=== PATIENT | female | born 1985 | race Caucasian/White ===

== ENCOUNTER 2017-12-06 19:22 | Emergency (ER) | payer MEDICAID, SELFPAY ==
[2017-12-06 19:23] VITALS: BP 208/119; PULSE 91; RESP 20; TEMP 36.7; O2SAT 97; BMI 53.3
--- NOTE | 2017-12-06 21:02 | US_ITS ---
STUDY: ULTRASOUND TRANSVAGINAL CLINICAL: Female, 32 years old. Bleeding. Recent . TECHNIQUE: Transvaginal COMPARISON: None. FINDINGS: Normal uterine size measuring 11.0 x 6.7 x 5.2 cm in maximal craniocaudal dimension. There are no myometrial masses. Endometrium is thickened and heterogeneous, measuring up to 2 cm. There is no vascularity within the thickened endometrium. This likely represents avascular retained products of conception. Normal uterine cervix. The ovaries are not visualized. There is no free fluid in the pelvis. US/Transvaginal Non- IMPRESSION: Thickened heterogeneous endometrium with no evidence of vascularity. This likely represents avascular retained products of conception. Electronically Signed: Eric Sánchez, at 22:17 EST Tel , Service support ,
[2017-12-06 21:26] VITALS: BP 140/92; RESP 16
[2017-12-06 21:38] LABS: Absolute Lymphocyte Count 0.37 X10^3/ul (0.83-4.51); Absolute Neutrophil Count 2.8 X10^3/uL (2.0-7.7); Basophil# 0.01 X10^3/uL; Basophil% 0.3 % (0-1); Eosinophil# 0.04 X10^3/uL; Eosinophils% 1.1 % (0-5); Hematocrit 33.9 % (37-47); Hemoglobin 11.1 g/dl (12.0-15.0); Lymphocyte # 0.37 X10^3/ul (4.0); Lymphocyte % 10.6 % (19-41); Mean Corp Hgb Conc 32.7 g/gl (32-36); Mean Corpuscular Hgb 29.4 pg (27.0-32.0); Mean Corpuscular Volume 89.9 fL (81-99); Mean Platelet Vol. 11.6 fl (6.2-12.0); Monocyte# 0.26 X10^3/uL; Monocyte% 7.5 % (0-10); Neutrophil # 2.76 X10^3/uL (2.7-7.7); Neutrophil % 79.4 % (47-70); Platelet Count 152 K/mm3 (150-450); RBC Distribution Width CV 12.6 % (11.6-14.6); RBC Distribution Width SD 40.3 fl (35.1-43.9); Red Blood Count 3.77 M/mm3 (4.2-5.4); White Blood Count 3.5 K/mm3 (4.4-11.0)
[2017-12-06 21:39] LABS: Differential Indicated SCAN CRITERIA MET; POSITIVE COUNT NO; POSITIVE DIFFERENTIAL YES; POSITIVE MORPHOLOGY NO
[2017-12-06 21:41] LABS: International Normalized Ratio 1.1; Partial Thromboplast Time 25.4 Seconds (24.1-36.2); Prothrombin Time (Protime)PT. 13.3 SECONDS (11.7-14.9)
[2017-12-06 21:49] LABS: Anion Gap 7 (5-15); BUN 14 mg/dL (7-18); BUN/Creat Ratio 20.4 RATIO (10-20); Calcium,Total 8.7 mg/dL (8.5-10.1); Chloride 106 mmol/L (98-107); Creatinine, Serum 0.68 mg/dL (0.55-1.02); EST Glomerular Filtration Rate 104 mL/min (>60); Est Glom Filt Rate - Afr Amer 126 mL/min (>60); Glucose 88 mg/dL (74-106); Potassium 3.6 mmol/L (3.5-5.1); Sodium Level 140 mmol/L (136-145)
--- NOTE | 2017-12-06 22:51 | ED.DCSUM_ITS ---
- ER Visit Summary Date of Service: 12/06/17 Chief Complaint: Vaginal bleeding History of Present Illness: The patient is a 32 F with a history of cardiomyopathy after prior . Patient underwent an elective surgical on November 27 when she was 10-1/2 weeks . Patient states she had very minimal bleeding for the first several days. 2 days ago she started having sudden gushes of blood and passing clots. She is scheduled to see her LIBERAL ARTS TEACHER tomorrow. Physical Examination: Blood pressure in triage is 208/119, temperature 98.1, heart rate 91, respiratory 20, pulse ox 97% on room air. Head and neck examination is unremarkable. Heart is regular rate and rhythm. Lung sounds are clear with good air movement throughout. Abdomen is soft, obese, nontender. Test Results: CBC reveals a hemoglobin 11.1 which is stable when compared to labs from last year. Chemistry studies and coags are normal. Transvaginal ultrasound reveals a thickened heterogeneous endometrium up to 2 cm in thickness with no evidence of vascularity. This likely represents avascular retained products of conception. Emergency Department Course and Treatment: Patient reports that blood pressure is usually high when checked on machines, but when manually obtained is normal. Manual blood pressure here is 140/92. Patient declined anything for pain. I spoke with Tania Betts, on-call for [facility] CAMPAIGN MANAGEMENT SENIOR MANAGER. She advises that as long as the patient is stable she can be discharged to home and is to follow-up tomorrow as scheduled. At that time they can discuss possible use of Cytotec or D&C. Treatment Plan: [] Disposition: Discharge Impression: Retained products following elective surgical This note was generated with [employer] dictation software. It may contain incorrect words, spelling, and punctuation that were not noted in review of the chart prior to signing ED Disposition - Plan for ED Patient: Disposition: Home or Assisted Living Chief Complaint: Vag Bleeding Instructions: ED Bleeding Menstrual Heavy Referrals: Savanna Alcantara MD [STAFF PHYSICIAN] - Keep Caterina appointment
[2017-12-06 23:23] VITALS: RESP 18
[2017-12-08 09:10] LABS: Pathologist Review Reviewed
== END 2017-12-06 23:25 | disposition home or self-care (01) ==
PROVIDERS: Emergency Provider Emergency Medicine; Family Provider Family Medicine; PCP Family Medicine
DX: O03.1 Delayed or excessive hemorrhage following incomplete spontaneous abortion (principal); I11.0 Hypertensive heart disease with heart failure; I50.9 Heart failure, unspecified; M06.9 Rheumatoid arthritis, unspecified; E66.9 Obesity, unspecified; Z68.43 Body mass index [BMI] 50.0-59.9, adult
CPT/HCPCS: 76830; 80048; 85025; 85610; 85730; 99283; A4216

== ENCOUNTER 2018-02-17 16:10 | Emergency (ER) | payer MEDICAID, SELFPAY ==
[2018-02-17 16:12] VITALS: BP 173/125; PULSE 137; RESP 20; TEMP 37.6; O2SAT 96; BMI 50.1
--- NOTE | 2018-02-17 16:34 | RAD_ITS ---
CLINICAL HISTORY: Female, 32 years old. [place], NECK STIFFNESS, FEVER. PROCEDURE: LUMBAR PUNCTURE UNDER FLUOROSCOPIC GUIDANCE FLUOROSCOPY TIME (if supplied): (0:57) minutes/seconds, 4 images were obtained. RADIATION DOSAGE (If Supplied By Facility): CTDIvol = ( ) mGy, DLP = ( ) mGycm CONSENT: The risks, benefits and alternatives to the procedure were explained to the patient, and the patient agreed to the procedure and signed the consent. SEDATION: STERILE BARRIER TECHNIQUE: The following sterile barrier precautions were used during the procedure: hand hygiene; use of 2% chlorhexidine aseptic; use of a cap, mask, sterile gown, sterile gloves, sterile full body drape, and a large sterile sheet. PROCEDURE/TECHNIQUE: The risks, benefits, and alternatives to the procedure were explained to patient, and the patient agreed to the procedure and signed a consent form for the procedure. A timeout was performed to confirm the patient's identity, the type of procedure, to be performed and the site of entry. TECHNIQUE: Under fluoroscopic guidance using sterile technique and after infiltration of the skin and subcutis soft tissues with 10 mL lidocaine 1% a 22-gauge needle is introduced in the lumbar thecal sac. The CSF opening pressures 30 cm H2O. Traumatic lumbar puncture, 14 mL of blood-tinged CSF which had cleared progressively were removed and sent to lab for the for evaluation RAD/Fluoro Guided Lumbar Puncture IMPRESSION: Successful lumbar puncture. CSF opening pressures 30 CM H2O. 14 mL of blood-tinged CSF were removed. Electronically Signed: Wolf Lopez MD at 9:32 EDT Tel , Service support ,
[2018-02-17] MEDS: 0.9% Normal Saline 1,000 ML 1000 ML IV ×2 (16:48→17:40)
[2018-02-17 16:59] LABS: Absolute Lymphocyte Count 0.39 X10^3/ul (0.83-4.51); Absolute Neutrophil Count 7.8 X10^3/uL (2.0-7.7); Basophil# 0.02 X10^3/uL; Basophil% 0.2 % (0-1); Differential Indicated SCAN CRITERIA MET; Eosinophil# 0.03 X10^3/uL; Eosinophils% 0.3 % (0-5); Hematocrit 37.1 % (37-47); Hemoglobin 12.5 g/dl (12.0-15.0); Lymphocyte # 0.39 X10^3/ul (4.0); Lymphocyte % 4.5 % (19-41); Mean Corp Hgb Conc 33.7 g/gl (32-36); Mean Corpuscular Hgb 29.3 pg (27.0-32.0); Mean Corpuscular Volume 87.1 fL (81-99); Mean Platelet Vol. 13.4 fl (6.2-12.0); Monocyte# 0.48 X10^3/uL; Monocyte% 5.5 % (0-10); Neutrophil # 7.83 X10^3/uL (2.7-7.7); Neutrophil % 89.4 % (47-70); POSITIVE COUNT NO; POSITIVE DIFFERENTIAL YES; POSITIVE MORPHOLOGY NO; Platelet Count 59 K/mm3 (150-450); RBC Distribution Width CV 12.8 % (11.6-14.6); RBC Distribution Width SD 39.4 fl (35.1-43.9); Red Blood Count 4.26 M/mm3 (4.2-5.4); White Blood Count 8.8 K/mm3 (4.4-11.0)
[2018-02-17 17:07] LABS: Anion Gap 7 (5-15); BUN 7 mg/dL (7-18); Calcium,Total 8.4 mg/dL (8.5-10.1); Chloride 101 mmol/L (98-107); Creatinine, Serum 0.63 mg/dL (0.55-1.02); EST Glomerular Filtration Rate 114 mL/min (>60); Est Glom Filt Rate - Afr Amer 137 mL/min (>60); Estimated Creatinine Clearance 113.22 ml/min; Glucose 122 mg/dL (74-106); Potassium 4.6 mmol/L (3.5-5.1); Sodium Level 132 mmol/L (136-145)
[2018-02-17 17:10] LABS: Pregnancy, Serum, hCG Quali. NEGATIVE Negative (0-9 Nonpreg)
[2018-02-17 17:22] LABS: Differential Comment SCANNED
[2018-02-17] MEDS: Acetaminophen 500 MG Tablet 1000 MG PO (17:40)
[2018-02-17 17:56] LABS: Body Fluid Polynuclear WBC # 0.001 10^3/uL; Total Cell Count CSF 0.001 10^3/uL (0.000-0.000); White Count, CSF 0.001 10^3/uL (0.000-0.000)
[2018-02-17 17:58] LABS: Glucose Spinal Fluid 55 mg/dL (40-75)
[2018-02-17 18:11] LABS: Appearance CSF (character) CLEAR (Clear); Auto B Fluid Analyzer BKGD Ct COUNTS W/IN LIMITS (W/IN LIMITS); Body Fluid QC Type(s) BF4Q; CSF Color COLORLESS (Colorless); RBC Count, Spinal Fluid 219 /mm-3 (None seen); Tested Tube # 4
[2018-02-17 18:26] LABS: Bacteria 0 SEEN /hpf (None Seen); Mucous, Urine 0 SEEN /hpf (<or=2+); White Blood Cells 0 SEEN /hpf (0-5)
--- NOTE | 2018-02-17 18:33 | RAD_ITS ---
STUDY: X-RAY CHEST REASON FOR EXAM: Female, 32 years old. Fever, headache TECHNIQUE: Single frontal view COMPARISON: May 07, 2013 FINDINGS: The lungs are clear and expanded. There is no demonstrated pleural abnormality. Prominent cardiac shadow. Normal mediastinum and benedict. Normal visualized pulmonary arteries. Normal visualized aortic arch and descending thoracic aorta. Normal visualized thoracic spine. Normal visualized ribs, clavicles, and shoulders. There is no demonstrated abnormality of the visualized soft tissue structures of the upper abdomen. RAD/Chest 1 View (Portable) IMPRESSION: Prominent cardiac shadow. Electronically Signed: Jose G Damon DO at 18:58 EDT Tel [phone], Service support ,
[2018-02-17 18:42] LABS: Color, Urine Yellow (Yellow); Glucose, Dipstick Normal (Normal); Ketone-Dipstick Negative (Negative); Leukocyte Esterase-Dipstick Negative /ul (Negative); Nitrite-Dipstick Negative (Negative); Occult Blood-Urine 250 /ul (Negative); Protein-Dipstick 100 mg/dl (Negative); Urine Bilirubin Dipstick Negative (Negative); Urine Clarity Sl. Cloudy (Clear); Urine Urobilinogen 1 mg/dl (Normal)
[2018-02-17 18:59] LABS: AST(SGOT) 34 U/L (15-37); Alanine Aminotransfer ALT/SGPT 16 U/L (13-56); Albumin, Serum 3.1 g/dL (3.2-5.0); Alkaline Phosphatase 58 U/L (45-117); Globulin 4.8 g/dL (2.2-4.2); Protein, Total 7.9 g/dL (6.4-8.2)
[2018-02-17 19:01] LABS: Body Fluid Mononuclear WBC # 0.001 10^3/uL; Body Fluid Mononuclear WBC % 6.3 %; Body Fluid Polynuclear WBC # 0.015 10^3/uL; Body Fluid Polynuclear WBC % 93.7 %; Total Cell Count CSF 0.016 10^3/uL (0.000-0.000); White Count, CSF 0.016 10^3/uL (0.000-0.000)
[2018-02-17] MEDS: Ibuprofen 600 MG Tablet PO (19:02)
[2018-02-17 19:03] VITALS: PULSE 124; RESP 20; O2SAT 97
[2018-02-17] MEDS: 0.9% Normal Saline 1,000 ML 999 ML IV (19:03)
[2018-02-17 19:05] VITALS: TEMP 39.4
[2018-02-17 19:05] LABS: Auto B Fluid Analyzer BKGD Ct COUNTS W/IN LIMITS (W/IN LIMITS); Tested Tube # 1
[2018-02-17 19:06] LABS: Appearance CSF (character) CLOUDY (Clear); Body Fluid QC Type(s) BF4Q; CSF Color RED (Colorless)
[2018-02-17 19:10] LABS: Amorphous Sediment 1+ PHOS; Red Blood Cells-Urine 10-25 SEEN /hpf (0-5); Squamous Epithelial Cells - UA 0-5 SEEN /hpf (5-10)
--- NOTE | 2018-02-17 19:14 | CT_ITS ---
STUDY: CT BRAIN WITHOUT CONTRAST REASON FOR EXAM: Female, 32 years old. Headache, neck pain RADIATION DOSAGE (If Supplied By Facility): CTDIvol = ( 44.99 ) mGy, DLP = ( 779.24 ) mGycm TECHNIQUE: Transaxial CT imaging of the brain was performed without administration of intravenous contrast material. Individualized dose optimization techniques were used for this CT. COMPARISON: None. FINDINGS: Normal soft tissue structures. Normal calvarium. Normal size ventricles and extra-axial spaces for the patient's age. Normal white matter tracts of the cerebral hemispheres. Normal basal ganglia and thalami. Normal brainstem. Normal cerebellum. There is no intracranial hemorrhage. There are no findings of an acute ischemic infarction. Normal visualized paranasal sinuses. CT/Brain/Head without Contrast IMPRESSION: Normal unenhanced CT scan of the brain. Electronically Signed: Jose G Damon DO at 19:51 EDT Tel [phone], Service support ,
[2018-02-17 19:17] LABS: Protein Spinal Fluid 28.1 mg/dL (15.0-45.0)
[2018-02-17 19:55] VITALS: BP 143/105; TEMP 38
[2018-02-17 20:14] LABS: Lactic Acid 0.7 mmol/L (0.4-2.0)
[2018-02-17 20:21] VITALS: TEMP 37.4
--- NOTE | 2018-02-17 20:59 | ED.DEP ---
ED Disposition - Plan for ED Patient: Chief Complaint: Headache Instructions: ED Viral Syndrome Referrals: Julio Argueta MD [Primary Care Provider] -
[2018-02-17 21:17] VITALS: BP 138/90; PULSE 110; RESP 14; O2SAT 98
--- NOTE | 2018-02-17 22:49 | ED.DCSUM_ITS ---
- ER Visit Summary Date of Service: 02/17/18 Chief Complaint: Fever History of Present Illness: The patient is a 32 F presenting with fever, headache, neck pain. She states she had a gradual onset headache which started on Wednesday. It worsened over the past 2 days. She has had temperatures up to 103.4 at home. She took Tylenol at noon today. She went to urgent care and they sent her to the ED for further evaluation. She denies sore throat or rhinorrhea. Denies chest pain or shortness of breath. Denies abdominal pain, nausea, vomiting. She does have mild diarrhea. Denies urinary complaints. Denies other complaints. Physical Examination: HR 137, Temperature 99.7. Alert no acute distress. HEENT exam is unremarkable. Pharynx is normal, uvula midline Neck is supple. Paraspinal tenderness with range of motion Lungs are clear and equal bilaterally. Heart is regular and tachycardic Abdomen is soft nontender nondistended. No rebound or guarding Extremities are unremarkable. Skin is warm and dry. No rash No focal neurologic deficit. Remainder of exam is unremarkable. Emergency Department Course and Treatment: Patient is given IV fluids, Motrin. CBC normal except for platelets of 59. Chemistries normal except for sodium 132 , glucose 122. Urinalysis positive for blood. She states that she does have intermittent spotting with irregular periods. HCG negative. Influenza negative. LP was performed under fluoroscopy. CSF shows 1 white blood cell, glucose and protein are normal. Gram stain is negative. She does have red blood cells in her CSF which decreases from tube 1 to tube 4. This is likely due to traumatic tap. Repeat temperature 103. CT head shows no acute process. Chest x-ray shows no acute process. She is given additional IV fluids. Lactic acid is normal. On repeat evaluation her heart rate is now 106. She has a temperature 99.3. She is feeling much improved. She is able tolerate p.o. in the emergency department. Her platelets are 59 which is lower than her previous. Discussed with Dr. Madrid. Low platelets are likely due to viral illness. She will follow-up with her primary care physician to have this rechecked when she is feeling improved. She is advised return to the ED for any worsening complaints. Disposition: Discharge home Impression: Febrile illness, Viral syndrome This note was generated with [employer] software. It may contain incorrect words, spelling, and punctuation that were not noted in review of the chart prior to signing ED Disposition - Plan for ED Patient: Disposition: Home or Assisted Living Chief Complaint: Headache Instructions: ED Viral Syndrome Referrals: Julio Argueta MD [Primary Care Provider] -
[2018-02-18 14:33] LABS: Pathologist Review Reviewed
[2018-02-18 14:34] LABS: Pathologist Review Reviewed
== END 2018-02-17 21:20 | disposition home or self-care (01) ==
PROVIDERS: Emergency Provider Emergency Medicine; Family Provider Family Medicine; PCP Family Medicine
DX: B34.9 Viral infection, unspecified (principal)
CPT/HCPCS: 62270; 70450; 71045; 77003; 80048; 80076; 81001; 82945; 83605; 84157; 84703; 85025; 87070; 87205; 87449; 87804; 89050; 89051; 96360; 96361; 99283; J7030; A4216

== ENCOUNTER 2018-02-21 10:15 | Emergency (ER) | payer OTHER, SELFPAY ==
[2018-02-21 10:16] VITALS: BP 105/33; PULSE 109; RESP 18; TEMP 36.9; O2SAT 96; BMI 50.6
--- NOTE | 2018-02-21 11:02 | ED.VISSUMM ---
- ER Visit Summary Date of Service: 02/21/18 Chief Complaint: Headache History of Present Illness: The patient is a 32 F who presents with a headache. 4 days ago she was seen here for fever, headache and neck pain. She had a LP done which showed no evidence of infection. She was diagnosed with a viral syndrome and discharged home. She continues with a headache. It is a pressure in the front part of her head. She has been tiring caffeine as well as other nonsteroidals at home without any relief. She also admits to diarrhea. She has no history of migraines. She has still had a slight fever at home but it is improved since she came to the ER. She also has blurry vision. Physical Examination: Vital signs reviewed. HEENT exam unremarkable. Heart is regular rate and rhythm without murmurs. Lungs are clear to auscultation. Abdomen is soft and nontender. Extremities reveal no edema. Skin exam normal. Neurologic exam normal. Test Results: None performed Emergency Department Course and Treatment: Patient was given Compazine, Benadryl and normal saline. I feel that she is out of the window for a blood patch. She states she had improvement with this but not any resolution. I did add Norflex as she was having some left paraspinal cervical tenderness and tightness. Patient will be discharged with Flexeril. I will give her a nonsteroidal for pain at home. She will rest and will follow up with her PCP Treatment Plan: [] Disposition: Discharge Impression: Headache This note was generated with [employer] dictation software. It may contain incorrect words, spelling, and punctuation that were not noted in review of the chart prior to signing ED Disposition - Plan for ED Patient: Chief Complaint: Headache Referrals: Julio Argueta MD [Primary Care Provider] -
[2018-02-21] MEDS: 0.9% Normal Saline 1,000 ML 999 ML IV (11:29)
[2018-02-21] MEDS: DiphenhydrAMINE 50 MG/ML Syringe 25 MG IV (11:29)
[2018-02-21] MEDS: proCHLORPERazine 10 MG/2 ML Vial IV (11:29)
[2018-02-21] MEDS: Orphenadrine 60 MG/2 ML Ampul IM (12:43)
--- NOTE | 2018-02-21 13:13 | ED.DEP ---
ED Disposition - Plan for ED Patient: Disposition: Home or Assisted Living Chief Complaint: Headache Instructions: ED Cephalgia Unspecified Prescriptions: Naproxen [Naprosyn] 500 mg PO BID PRN #20 tab Cyclobenzaprine [Flexeril] 10 mg PO TID PRN #20 tab PRN Reason: Muscle Spasm Referrals: Julio Argueta MD [Primary Care Provider] -
[2018-02-21 13:23] VITALS: BP 108/69; PULSE 72; RESP 15; O2SAT 98
== END 2018-02-21 13:25 | disposition home or self-care (01) ==
PROVIDERS: Emergency Provider Emergency Medicine; Family Provider Family Medicine; PCP Family Medicine
DX: R51 Headache (principal)
CPT/HCPCS: 96361; 96372; 96374; 96375; 99283; J7030; A4216

== ENCOUNTER 2018-02-28 07:08 | Emergency (ER) | payer OTHER, SELFPAY ==
[2018-02-28 07:09] VITALS: BP 156/114; PULSE 125; RESP 18; TEMP 36.8; O2SAT 98; BMI 49.7
--- NOTE | 2018-02-28 07:22 | CT_ITS ---
STUDY: CT SOFT TISSUE NECK WITHOUT CONTRAST REASON FOR EXAM: Female, 32 years old. Two-week history of palpable abnormality in the lower left cervical/ shoulder region with the fever and sore throat. RADIATION DOSAGE (If Supplied By Facility): CTDIvol = ( 21.92 ) mGy, DLP = ( 1554.3 ) mGycm TECHNIQUE: The patient was scanned in a multi-detector CT scanner. High resolution transaxial imaging was performed without the administration of intravenous contrast material. Sagittal and coronal images were reconstructed. Individualized dose optimization techniques were used for this CT. COMPARISON: None. FINDINGS: Normal bilateral parotid glands. Normal bilateral nuclear waste management engineer spaces. Normal bilateral parapharyngeal spaces. Normal bilateral carotid spaces. Normal bilateral sublingual and submandibular glands and spaces. Normal visualized nasopharynx. Normal retropharyngeal space. Normal perivertebral space. Normal visualized bilateral faucial tonsils. The visualized tongue, tongue base and oropharynx are normal. There is a 6.2 cm x 9.4 signed by 7.2 cm soft tissue mass in the left supraclavicular region extending into the left lower cervical region. There is diffuse increased markings in the subcutaneous fat along the left anterior chest wall suggestive of edema. Is also evidence of multiple small lymph nodes in the supraclavicular region and lower cervical region bilaterally worse on the left side. A neoplastic process should be ruled out. With a history of fever, possible slight marginal be ruled out as well. Normal epiglottis, bilateral vallecula and hypopharynx. The pre-epiglottic and paraglottic adipose spaces are normal. Normal visualized bilateral piriform sinuses, aryepiglottic folds, vocal cords, and arytenoid-cricoid articulations. Normal subglottic trachea. Normal bilateral lobes of the thyroid gland. Normal visualized pulmonary apices. Normal visualized paranasal sinuses. Normal visualized cervical spine. CT/Soft Tissue Neck without Contr IMPRESSION: Soft tissue mass in the left supraclavicular and left lower cervical region as described with evidence of subcutaneous inflammatory change or edema and adenopathy. Electronically Signed: Kyle Almanzar MD at 9:10 EDT Tel [phone], Service support ,
--- NOTE | 2018-02-28 07:22 | CT_ITS ---
STUDY: CT CHEST WITHOUT CONTRAST REASON FOR EXAM: Female, 32 years old. Left-sided palpable mass. Pain. RADIATION DOSAGE (If Supplied By Facility): CTDIvol = ( 21.92 ) mGy, DLP = ( 1554.3 ) mGycm TECHNIQUE: Transaxial imaging was performed without the administration of intravenous contrast material. Multiplanar coronal and sagittal images were reformatted. Individualized dose optimization techniques were used for this CT. COMPARISON: None. FINDINGS: There is an 8.9 cm x 6.9 cm soft tissue mass in the left supraclavicular and left cervical region. Increased markings are seen in the surrounding subcutaneous fat. A neoplastic process should be ruled out. Multiple small lymph nodes are also seen in the paraventricular region bilaterally as well as in the lower cervical region. The lungs are normal. There is no demonstrated pleural abnormality. Normal heart and pericardium. Normal mediastinum. Normal hilar regions. Normal unenhanced pulmonary arteries. Normal aorta arch and descending thoracic aorta. Normal osseous structures. There is no demonstrated abnormality of the visualized upper abdomen. CT/Chest without Contrast IMPRESSION: Large soft tissue mass in the left supraclavicular and left cervical region with multiple small lymph nodes as described. Increased markings in the surrounding subcutaneous fat. A neoplastic process should be ruled out. Electronically Signed: Kyle Almanzar MD at 9:21 EDT Tel [phone], Service support ,
--- NOTE | 2018-02-28 07:25 | ED.VISSUMM ---
- ER Visit Summary Date of Service: 02/28/18 Chief Complaint: Neck mass History of Present Illness: The patient is a 32 F who was seen about 2 weeks ago for fever and headache. She had a lumbar puncture and was discharged. She developed a subsequent spinal headache, according to the patient. She was here Wednesday. She has a left-sided neck mass that has continued to bother her. She tried muscle relaxers and anti-inflammatories, and it is not improving. She is concerned it might be associated with her fever and she is developing a sore throat. She never had anything like this in the past. She has a history of -induced cardiomyopathy, CHF. She also has acid reflux and hypothyroidism. No history of malignancy. She is allergic to IV dye and is refusing contrast injection. Physical Examination: Hypertensive and tachycardic. No acute distress. Sitting upright, breathing and moving comfortably. HEENT is normal to inspection. Oropharynx slightly red but otherwise normal. No masses. Uvula midline. No exudates. Pain with range of motion of her neck to the left. Range of motion is full and no meningeal signs are noted. She does have some firm supraclavicular fullness on the left side. No crepitus. Skin appears normal. Heart and lungs unremarkable. Upper extremity exam unremarkable. Test Results: We will check lab work, hCG, strep test, and CT neck and chest. Emergency Department Course and Treatment: Patient has a very pronounced left sided supraclavicular fullness. I am concerned for an underlying mass, lymphadenopathy, infection, etc. Laboratory studies and imaging were performed. Hemoglobin 10.7 and platelets 69. Patient has a history of anemia, but never had thrombocytopenia prior to this month that I can appreciate in her records. Her metabolic panel was normal. HCG negative. Strep test was positive. CT neck and chest was performed without contrast because the patient has an allergy and would not allow contrast to be given. This showed a supraclavicular mass with edema and associated lymphadenopathy. I spoke with the radiologist. There is a concern for malignancy. I discussed the patient with Dr. Madrid. He said that the patient can follow-up with him. He was also concern for malignancy. He recommended [facility] for appropriate and expedited initial workup. The patient initially requested [facility], but they were at capacity, and she subsequently agreed to transfer to [facility]. I spoke with Dr. Prosper Haney who accepted the patient. Patient was treated with azithromycin for her strep positive test. [facility] called back and did have a bed available. Patient would prefer [facility] and was transferred there instead. Treatment Plan: As above Disposition: Transfer to [facility] Impression: 1. Left supraclavicular mass 2. Thrombocytopenia 3. Strep positive This note was generated with [employer] dictation software. It may contain incorrect words, spelling, and punctuation that were not noted in review of the chart prior to signing ED Disposition - Plan for ED Patient: Chief Complaint: General Illness Referrals: Julio Argueta MD [Primary Care Provider] -
--- NOTE | 2018-02-28 07:28 | ED.DCSUM_ITS ---
- ER Visit Summary Date of Service: 02/28/18 Chief Complaint: Neck mass History of Present Illness: The patient is a 32 F who was seen about 2 weeks ago for fever and headache. She had a lumbar puncture and was discharged. She developed a subsequent spinal headache, according to the patient. She was here Wednesday. She has a left-sided neck mass that has continued to bother her. She tried muscle relaxers and anti-inflammatories, and it is not improving. She is concerned it might be associated with her fever and she is developing a sore throat. She never had anything like this in the past. She has a history of -induced cardiomyopathy, CHF. She also has acid reflux and hypothyroidism. No history of malignancy. She is allergic to IV dye and is refusing contrast injection. Physical Examination: Hypertensive and tachycardic. No acute distress. Sitting upright, breathing and moving comfortably. HEENT is normal to inspection. Oropharynx slightly red but otherwise normal. No masses. Uvula midline. No exudates. Pain with range of motion of her neck to the left. Range of motion is full and no meningeal signs are noted. She does have some firm supraclavicular fullness on the left side. No crepitus. Skin appears normal. Heart and lungs unremarkable. Upper extremity exam unremarkable. Test Results: We will check lab work, hCG, strep test, and CT neck and chest. Emergency Department Course and Treatment: Patient has a very pronounced left sided supraclavicular fullness. I am concerned for an underlying mass, lymphadenopathy, infection, etc. Laboratory studies and imaging were performed. Hemoglobin 10.7 and platelets 69. Patient has a history of anemia, but never had thrombocytopenia prior to this month that I can appreciate in her records. Her metabolic panel was normal. HCG negative. Strep test was positive. CT neck and chest was performed without contrast because the patient has an allergy and would not allow contrast to be given. This showed a supraclavicular mass with edema and associated lymphadenopathy. I spoke with the radiologist. There is a concern for malignancy. I discussed the patient with Dr. Madrid. He said that the patient can follow-up with him. He was also concern for malignancy. He recommended [facility] for appropriate and expedited initial workup. The patient initially requested [facility], but they were at capacity, and she subsequently agreed to transfer to [facility]. I spoke with Dr. Prosper Haney who accepted the patient. Patient was treated with azithromycin for her strep positive test. [facility] called back and did have a bed available. Patient would prefer [facility] and was transferred there instead. Treatment Plan: As above Disposition: Transfer to [facility] Impression: 1. Left supraclavicular mass 2. Thrombocytopenia 3. Strep positive This note was generated with [employer] dictation software. It may contain incorrect words, spelling, and punctuation that were not noted in review of the chart prior to signing ED Disposition - Plan for ED Patient: Chief Complaint: General Illness Referrals: Julio Argueta MD [Primary Care Provider] -
[2018-02-28] MEDS: 0.9% Normal Saline 1,000 ML 999 ML IV (07:43)
[2018-02-28 07:55] LABS: Absolute Lymphocyte Count 0.35 X10^3/ul (0.83-4.51); Absolute Neutrophil Count 7.7 X10^3/uL (2.0-7.7); Basophil# 0.01 X10^3/uL; Basophil% 0.1 % (0-1); Differential Indicated SCAN CRITERIA MET; Eosinophil# 0.06 X10^3/uL; Eosinophils% 0.7 % (0-5); Hematocrit 32.7 % (37-47); Hemoglobin 10.7 g/dl (12.0-15.0); Lymphocyte # 0.35 X10^3/ul (4.0); Lymphocyte % 4.1 % (19-41); Mean Corp Hgb Conc 32.7 g/gl (32-36); Mean Corpuscular Hgb 28.8 pg (27.0-32.0); Mean Corpuscular Volume 87.9 fL (81-99); Mean Platelet Vol. 12.2 fl (6.2-12.0); Monocyte# 0.36 X10^3/uL; Monocyte% 4.2 % (0-10); Neutrophil # 7.72 X10^3/uL (2.7-7.7); Neutrophil % 90.5 % (47-70); POSITIVE COUNT NO; POSITIVE DIFFERENTIAL YES; POSITIVE MORPHOLOGY NO; Platelet Count 69 K/mm3 (150-450); RBC Distribution Width CV 12.7 % (11.6-14.6); RBC Distribution Width SD 39.8 fl (35.1-43.9); Red Blood Count 3.72 M/mm3 (4.2-5.4); White Blood Count 8.5 K/mm3 (4.4-11.0)
--- NOTE | 2018-02-28 08:03 | ED.RN ---
DR RAZO NOTIFIED PT IS STREP A +
[2018-02-28 08:04] LABS: Anion Gap 8 (5-15); BUN 10 mg/dL (7-18); BUN/Creat Ratio 17.5 RATIO (10-20); Calcium,Total 8.4 mg/dL (8.5-10.1); Chloride 103 mmol/L (98-107); Creatinine, Serum 0.57 mg/dL (0.55-1.02); EST Glomerular Filtration Rate 128 mL/min (>60); Est Glom Filt Rate - Afr Amer 155 mL/min (>60); Estimated Creatinine Clearance 125.14 ml/min; Glucose 125 mg/dL (74-106); Sodium Level 136 mmol/L (136-145)
[2018-02-28 08:09] LABS: Pregnancy, Serum, hCG Quali. NEGATIVE Negative (0-9 Nonpreg)
[2018-02-28 10:23] VITALS: BP 141/99; PULSE 111; RESP 16; O2SAT 97
--- NOTE | 2018-02-28 13:23 | NURSING ---
CALLED [facility]. NO BEDS AVAILABLE YET. EXPECTING DISCHARGES THIS AFTERNOON
[2018-02-28] MEDS: Acetaminophen 325 MG Tablet 650 MG PO (14:39)
--- NOTE | 2018-02-28 15:44 | NUR.TO.PHY ---
14:50CALLED [facility] TO SEE IF THEY HAD ANYONE AVAILABLE TO TAKE PATIENT TO [place]. ETA WAS 45 MIN. 14:54 CALLED [facility] TO SEE IF THEY HAD ANYONE AVAILABLE. THEY SAID THEY HAD SOMEONE IN THE [place] SO ETA WOULD BE 15 MIN. 15:25 [facility] CALLED AND SAID THEY WERE SENDING A [facility]. I ASKED FOR AN ETA AND THEY SAID 20 MIN. 15:50 I JUST CALLED [facility] AGAIN AND THEY SAID THEY ARE HERE. ITS BEEN 10 MINUTES AND THEY JUST CAME IN AT 16:00.
== END 2018-02-28 15:59 | disposition short-term general hospital (02) ==
PROVIDERS: Emergency Provider Emergency Medicine; Family Provider Family Medicine; PCP Family Medicine
DX: R22.1 Localized swelling, mass and lump, neck (principal); D69.6 Thrombocytopenia, unspecified; J02.0 Streptococcal pharyngitis; I50.9 Heart failure, unspecified
CPT/HCPCS: 70490; 71250; 80048; 84703; 85025; 87880; 96361; 96365; 99285; J7030; J7050; A4216

== ENCOUNTER 2018-03-07 15:23 | Emergency (ER) | payer OTHER, SELFPAY ==
[2018-03-07 15:24] VITALS: BP 189/111; PULSE 118; RESP 18; TEMP 37.1; O2SAT 98; BMI 48.6
--- NOTE | 2018-03-07 15:43 | EKG12_ITS ---
Test Reason : HTN Blood Pressure : / mmHG Vent. Rate : 113 BPM Atrial Rate : 113 BPM P-R Int : 134 ms QRS Dur : 084 ms QT Int : 338 ms P-R-T Axes : 036 -20 032 degrees QTc Int : 463 ms Sinus tachycardia Leftward axis Poor R wave progression Confirmed by ERNESTO TRONCOSO, ELIZABETH ([id number]), map editor ELLIE BETTENCOURT ([id number]) on 03/11/2018 10:24:23 AM Referred By: HANNAH Confirmed By:ELIZABETH OROZCO MD
--- NOTE | 2018-03-07 15:52 | RAD_ITS ---
STUDY: X-RAY CHEST REASON FOR EXAM: Female, 32 years old. High blood pressure. TECHNIQUE: Frontal and lateral views of the chest. COMPARISON: 02/17/2018. FINDINGS: The lungs are clear and expanded. There is no demonstrated pleural abnormality. Normal size heart. Normal mediastinum and benedict. Normal visualized pulmonary arteries. Normal visualized aortic arch and descending thoracic aorta. Normal visualized thoracic spine. Normal visualized ribs, clavicles, and shoulders. There is no demonstrated abnormality of the visualized soft tissue structures of the upper abdomen. RAD/Chest PA and Lateral IMPRESSION: Normal x-ray examination of the chest. Electronically Signed: Donn Barcenas MD at 16:22 EDT , Service support ,
[2018-03-07 16:30] VITALS: BP 159/129; PULSE 11; RESP 15; O2SAT 99
[2018-03-07 16:41] LABS: Absolute Lymphocyte Count 0.31 X10^3/ul (0.83-4.51); Absolute Neutrophil Count 2.9 X10^3/uL (2.0-7.7); Basophil# 0.01 X10^3/uL; Basophil% 0.3 % (0-1); Differential Indicated SCAN CRITERIA MET; Eosinophil# 0.02 X10^3/uL; Eosinophils% 0.6 % (0-5); Hematocrit 34.1 % (37-47); Hemoglobin 11.2 g/dl (12.0-15.0); Lymphocyte # 0.31 X10^3/ul (4.0); Mean Corp Hgb Conc 32.8 g/gl (32-36); Mean Corpuscular Hgb 27.9 pg (27.0-32.0); Mean Platelet Vol. 11.6 fl (6.2-12.0); Monocyte# 0.19 X10^3/uL; Monocyte% 5.5 % (0-10); Neutrophil # 2.88 X10^3/uL (2.7-7.7); Neutrophil % 83.2 % (47-70); POSITIVE COUNT NO; POSITIVE DIFFERENTIAL YES; POSITIVE MORPHOLOGY NO; Platelet Count 123 K/mm3 (150-450); RBC Distribution Width CV 12.7 % (11.6-14.6); RBC Distribution Width SD 38.7 fl (35.1-43.9); Red Blood Count 4.01 M/mm3 (4.2-5.4); White Blood Count 3.5 K/mm3 (4.4-11.0)
[2018-03-07 16:47] LABS: Color, Urine Yellow (Yellow); Glucose, Dipstick Normal (Normal); Ketone-Dipstick 5 mg/dl (Negative); Leukocyte Esterase-Dipstick 25 /ul (Negative); Nitrite-Dipstick Negative (Negative); Occult Blood-Urine 150 /ul (Negative); Protein-Dipstick 100 mg/dl (Negative); Urine Clarity Cloudy (Clear); Urine Urobilinogen 1 mg/dl (Normal)
[2018-03-07 16:48] LABS: Urine Bilirubin Dipstick 1 mg/dL (Negative)
[2018-03-07 16:57] LABS: Bacteria 1+ /hpf (None Seen); Mucous, Urine 3+ /hpf (<or=2+); Red Blood Cells-Urine 0-5 SEEN /hpf (0-5); Squamous Epithelial Cells - UA 0-5 SEEN /hpf (5-10); White Blood Cells 0-5 SEEN /hpf (0-5)
[2018-03-07 16:58] LABS: Calcium Oxalate Crystals Ur 2+ /hpf (<or=2+); Hyaline Cast 5-10 SEEN /lpf (0-5)
[2018-03-07 17:08] LABS: AST(SGOT) 25 U/L (15-37); Alanine Aminotransfer ALT/SGPT 25 U/L (13-56); Albumin, Serum 2.9 g/dL (3.2-5.0); Alkaline Phosphatase 74 U/L (45-117); Anion Gap 11 (5-15); BUN 14 mg/dL (7-18); BUN/Creat Ratio 19.5 RATIO (10-20); Bilirubin, Direct 0.09 mg/dL (0.00-0.30); Calcium,Total 8.8 mg/dL (8.5-10.1); Chloride 102 mmol/L (98-107); Creatinine, Serum 0.72 mg/dL (0.55-1.02); EST Glomerular Filtration Rate 98 mL/min (>60); Est Glom Filt Rate - Afr Amer 119 mL/min (>60); Estimated Creatinine Clearance 99.07 ml/min; Globulin 4.8 g/dL (2.2-4.2); Glucose 116 mg/dL (74-106); Lipase 103 U/L (73-393); Potassium 3.7 mmol/L (3.5-5.1); Protein, Total 7.7 g/dL (6.4-8.2); Sodium Level 140 mmol/L (136-145)
[2018-03-07 17:16] LABS: Differential Comment SCANNED
[2018-03-07 17:17] LABS: Amphetamine Urine VISTA NEGATIVE (<1000 ng/mL); Barbiturate Urine VISTA POSITIVE (< 200 ng/mL); Benzodiazepine Urine VISTA NEGATIVE (< 200 ng/mL); Cocaine Urine VISTA NEGATIVE (< 300 ng/mL); Ecstacy Urine VISTA NEGATIVE (< 500 ng/mL); Methadone Urine VISTA NEGATIVE (< 300 ng/mL); PCP Urine VISTA NEGATIVE (< 25 ng/mL); THC Urine VISTA NEGATIVE (< 50 ng/mL); Vista UDS pH Range 5
[2018-03-07 17:32] VITALS: BP 168/111; PULSE 101; RESP 15; O2SAT 99
[2018-03-07 17:56] VITALS: BP 166/115; PULSE 106; RESP 18; O2SAT 96
[2018-03-07 17:57] VITALS: BP 182/115; PULSE 102; RESP 16; O2SAT 96
[2018-03-07 18:38] LABS: Lactic Acid 0.8 mmol/L (0.4-2.0)
--- NOTE | 2018-03-07 18:52 | ED.DCSUM_ITS ---
- ER Visit Summary Date of Service: 03/07/18 Chief Complaint: Elevated blood pressure, sweats History of Present Illness: The patient is a 32 F who presents with elevated blood pressure. She has had multiple recent ER visits and was recently diagnosed with a left neck abscess. At initial evaluation here it was thought to possibly be a mass. The patient was transferred to [place]. She had consultations from otolaryngology and it was ultimately felt to be an abscess. She did have a radiology guided drainage and catheter placed and there was purulent drainage confirming abscess. She was discharged on Keflex and clindamycin. However she then developed a rash afterwards. Physical Examination: Blood pressure 189/111 heart rate initially 118 vitals otherwise normal Patient does have a slight amount of induration in left supraclavicular region but no erythema no drainage no fluctuance Heart is regular rhythm tachycardia Lungs are clear Abdomen soft Alert and oriented Test Results: EKG shows sinus rhythm at a rate of 113. Laboratory studies notable for immature granulocytes of 1.4. Her lately count is 123 which is improving from prior labs. Urinalysis shows 1+ bacteria but no WBCs. Troponin and lactic acid are normal. Urine drug screen positive for barbiturates. Chest x-ray shows no acute process. Emergency Department Course and Treatment: I was able to obtain old records from the patient's recent hospitalization. Her blood pressure was around 180/ 120 while there. This is similar to what she is presenting with currently. She does not have signs of any organ failure from hypertension. We will increase her lisinopril as she was only started on 5 mg. She was told to double this. Was given a referral for a local primary care physician as she states she currently does not have one. Given her reaction to the Keflex and clindamycin we will treat with azithromycin as her cultures did just grow out group A strep which should be sensitive. Patient understands to return for new or worsening symptoms and she was discharged home. Treatment Plan: [] Disposition: Discharge Impression: Uncontrolled hypertension Recent left neck abscess This note was generated with Yoostay dictation software. It may contain incorrect words, spelling, and punctuation that were not noted in review of the chart prior to signing ED Disposition - Plan for ED Patient: Chief Complaint: Hypertension Referrals: Care Physician,No Primary [Primary Care Provider] -
--- NOTE | 2018-03-07 19:01 | ED.DEP ---
ED Disposition - Plan for ED Patient: Chief Complaint: Hypertension Instructions: ED Hypertension Conf Out Of Control Prescriptions: Azithromycin [Zithromax Z-Enrique] 250 mg PO UD #1 box Referrals: Care Physician,No Primary [Primary Care Provider] - Additional Instructions: Take 10 mg lisinopril daily
[2018-03-07 19:15] VITALS: BP 162/103; PULSE 100; RESP 13; RESP 18; O2SAT 97
== END 2018-03-07 19:24 | disposition home or self-care (01) ==
PROVIDERS: Emergency Provider Emergency Medicine
DX: I10 Essential (primary) hypertension (principal); L02.11 Cutaneous abscess of neck; B95.0 Streptococcus, group A, as the cause of diseases classified elsewhere; F41.9 Anxiety disorder, unspecified; Z79.899 Other long term (current) drug therapy
CPT/HCPCS: 36415; 71046; 80048; 80076; 80307; 81001; 83605; 83690; 84484; 85025; 87040; 93005; 99284; J7030; A4216

== ENCOUNTER 2018-04-28 13:40 | Inpatient (IN) | payer OTHER, SELFPAY ==
[2018-04-28 13:42] VITALS: BP 156/117; PULSE 128; RESP 16; TEMP 37.1; O2SAT 98; BMI 48.1
--- NOTE | 2018-04-28 15:50 | CT_ITS ---
STUDY: CT SOFT TISSUE NECK WITHOUT CONTRAST REASON FOR EXAM: Female, 33 years old. Strep throat RADIATION DOSAGE (If Supplied By Facility): CTDIvol = ( 21.25 ) mGy, DLP = ( 599.65 ) mGycm TECHNIQUE: The patient was scanned in a multi-detector CT scanner. High resolution transaxial imaging was performed without the administration of intravenous contrast material. Sagittal and coronal images were reconstructed. Individualized dose optimization techniques were used for this CT. COMPARISON: February 28, 2018 FINDINGS: Normal bilateral parotid glands. Normal bilateral geospatial applications developer spaces. Normal bilateral parapharyngeal spaces. Normal bilateral carotid spaces. Normal bilateral sublingual and submandibular glands and spaces. Normal visualized nasopharynx. Normal retropharyngeal space. Normal perivertebral space. Normal visualized bilateral faucial tonsils. The visualized tongue, tongue base and oropharynx are normal. The visualized cervical lymph nodes (levels I-) are within normal size limits, and maintain normal morphology. There is no demonstrated solid or cystic mass lesion. Normal epiglottis, bilateral vallecula and hypopharynx. The pre-epiglottic and paraglottic adipose spaces are normal. Normal visualized bilateral piriform sinuses, aryepiglottic folds, vocal cords, and arytenoid-cricoid articulations. Normal subglottic trachea. Normal bilateral lobes of the thyroid gland. Normal visualized pulmonary apices. Normal visualized paranasal sinuses. Normal visualized cervical spine. CT/Soft Tissue Neck without Contr IMPRESSION: Normal unenhanced CT examination of the soft tissues of the neck. Previously noted supraclavicular mass on the left appears to have resolved. No evidence of significant tonsillar hypertrophy or peritonsillar abscess although sensitivity is limited without IV contrast. Electronically Signed: Soto Phipps MD at 18:47 EDT , Service support ,
[2018-04-28 17:20] LABS: ALB/GLOB Ratio 0.6 RATIO (0.9-2.4); AST(SGOT) 41 U/L (15-37); Alanine Aminotransfer ALT/SGPT 29 U/L (13-56); Albumin, Serum 2.9 g/dL (3.2-5.0); Alkaline Phosphatase 64 U/L (45-117); Anion Gap 8 (5-15); BUN 13 mg/dL (7-18); Basophil# 0.01 X10^3/uL; Basophil% 0.3 % (0-1); Calcium,Total 8.2 mg/dL (8.5-10.1); Chloride 103 mmol/L (98-107); Creatinine, Serum 0.77 mg/dL (0.55-1.02); EST Glomerular Filtration Rate 91 mL/min (>60); Eosinophil# 0.02 X10^3/uL; Eosinophils% 0.6 % (0-5); Est Glom Filt Rate - Afr Amer 110 mL/min (>60); Estimated Creatinine Clearance 91.76 ml/min; Globulin 4.7 g/dL (2.2-4.2); Glucose 99 mg/dL (74-106); Hemoglobin 11.3 g/dl (12.0-15.0); Lymphocyte % 5.6 % (19-41); Mean Corp Hgb Conc 33.2 g/gl (32-36); Mean Corpuscular Volume 87.2 fL (81-99); Monocyte# 0.26 X10^3/uL; Monocyte% 7.3 % (0-10); Neutrophil # 3.02 X10^3/uL (2.7-7.7); Neutrophil % 85.4 % (47-70); Platelet Count 37 K/mm3 (150-450); Potassium 4.2 mmol/L (3.5-5.1); Protein, Total 7.6 g/dL (6.4-8.2); RBC Distribution Width SD 40.9 fl (35.1-43.9); Sodium Level 137 mmol/L (136-145); White Blood Count 3.5 K/mm3 (4.4-11.0)
[2018-04-28] MEDS: 0.9% Normal Saline 1,000 ML 150 ML IV (17:27)
[2018-04-28 18:01] VITALS: BP 156/98; PULSE 118; RESP 20; O2SAT 100
[2018-04-28 18:21] LABS: Differential Indicated SCAN CRITERIA MET; POSITIVE COUNT YES; POSITIVE DIFFERENTIAL YES; POSITIVE MORPHOLOGY YES
[2018-04-28 18:27] LABS: Anisocytosis RARE; Platelet Estimate MKD DEC (ADEQ)
[2018-04-28 18:28] LABS: Platelet Morphology LARGE
--- NOTE | 2018-04-28 19:02 | ED.VISSUMM ---
- ER Visit Summary Date of Service: 04/28/18 Chief Complaint: [Sore throat] History of Present Illness: The patient is a 33 F [presents to the emergency department complaint of a sore throat for at least 2 weeks now. Patient states that she has been on Keflex for the last 2 weeks. Patient was seen at an urgent care and had a strep screen that initially was negative but the culture part came back positive. Patient also states that about a month ago she was admitted to [facility] with a mass to her left upper chest that was initially thought to be a tumor versus an abscess and it ended up being strep which required some sort of a drain be put in. Patient has developed over last several weeks lesions on her face. Patient has easy bruising. Patient was told that her platelet count was low and she needed to see an oncologist and she is currently attempting to make follow-up appointment with Dr. Jacky Madrid. Patient had a fever yesterday up to 102. Patient also with history of rheumatoid arthritis, lupus, and psoriatic arthritis.] Physical Examination: [HEENT-PERRLA, EOMI. Cranial nerves II through XII grossly intact. TMs clear. Mucous membranes moist. Anterior adenopathy. Patient does have pharyngeal erythema without exudates. No trismus on exam. Patient has excoriated lesions involving both sides of the face some of which appears slightly cellulitic. Cardiovascular-regular rate and rhythm without murmur or ectopy Lungs-clear to auscultation, chest wall stable without crepitus or subcu emphysema Abdomen-normoactive bowel sounds, soft, nontender, no rebound or rigidity, no peritoneal signs. Extremities-intact ?4, normal range of motion, normal pulses, atraumatic] Test Results: [CBC with differential obtained showed a white blood cell count of 3.5, hemoglobin 11.3, hematocrit 34, platelets 37, chemistries unremarkable, liver enzymes unremarkable. Lactate was normal at 1.0] CT scan of the soft tissue neck obtained showed nothing acute. Throat culture ordered and pending patient also tested for MRSA. Emergency Department Course and Treatment: [Patient was started on vancomycin IV] Treatment Plan: [Admit] Disposition: [Admit] Impression: [Pharyngitis-failed outpatient therapy Thrombocytopenia-etiology uncertain] This note was generated with Ihaveu.comation software. It may contain incorrect words, spelling, and punctuation that were not noted in review of the chart prior to signing ED Disposition - Plan for ED Patient: Chief Complaint: Sore Throat Referrals: Care Physician,No Primary [Primary Care Provider] -
--- NOTE | 2018-04-28 19:07 | ED.DCSUM_ITS ---
- ER Visit Summary Date of Service: 04/28/18 Chief Complaint: [Sore throat] History of Present Illness: The patient is a 33 F [presents to the emergency department complaint of a sore throat for at least 2 weeks now. Patient states that she has been on Keflex for the last 2 weeks. Patient was seen at an urgent care and had a strep screen that initially was negative but the culture part came back positive. Patient also states that about a month ago she was admitted to [facility] with a mass to her left upper chest that was initially thought to be a tumor versus an abscess and it ended up being strep which required some sort of a drain be put in. Patient has developed over last several weeks lesions on her face. Patient has easy bruising. Patient was told that her platelet count was low and she needed to see an oncologist and she is currently attempting to make follow-up appointment with Dr. Jacky Madrid. Patient had a fever yesterday up to 102. Patient also with history of rheumatoid arthritis, lupus, and psoriatic arthritis.] Physical Examination: [HEENT-PERRLA, EOMI. Cranial nerves II through XII grossly intact. TMs clear. Mucous membranes moist. Anterior adenopathy. Patient does have pharyngeal erythema without exudates. No trismus on exam. Patient has excoriated lesions involving both sides of the face some of which appears slightly cellulitic. Cardiovascular-regular rate and rhythm without murmur or ectopy Lungs-clear to auscultation, chest wall stable without crepitus or subcu emphysema Abdomen-normoactive bowel sounds, soft, nontender, no rebound or rigidity, no peritoneal signs. Extremities-intact ?4, normal range of motion, normal pulses, atraumatic] Test Results: [CBC with differential obtained showed a white blood cell count of 3.5, hemoglobin 11.3, hematocrit 34, platelets 37, chemistries unremarkable, liver enzymes unremarkable. Lactate was normal at 1.0] CT scan of the soft tissue neck obtained showed nothing acute. Throat culture ordered and pending patient also tested for MRSA. Emergency Department Course and Treatment: [Patient was started on vancomycin IV ] Treatment Plan: [Admit] Disposition: [Admit] Impression: [Pharyngitis-failed outpatient therapy Thrombocytopenia-etiology uncertain] This note was generated with iRuleation software. It may contain incorrect words, spelling, and punctuation that were not noted in review of the chart prior to signing ED Disposition - Plan for ED Patient: Chief Complaint: Sore Throat Referrals: Care Physician,No Primary [Primary Care Provider] -
[2018-04-28] MEDS: Ketorolac 30 MG/ML Syringe IV (19:22)
--- NOTE | 2018-04-28 19:49 | PCM.HP.STD ---
Problem List (1) Thrombocytopenia Status: Acute (2) cardiomyopathy Status: Chronic (3) GERD (gastroesophageal reflux disease) Status: Chronic Qualifiers: Esophagitis presence: esophagitis presence not specified Qualified Code(s): K21.9 - Gastro-esophageal reflux disease without esophagitis (4) Obesity (BMI 30.0-34.9) Status: Chronic (5) Hypothyroidism Status: Chronic Qualifiers: Hypothyroidism type: unspecified Qualified Code(s): E03.9 - Hypothyroidism, unspecified History of Present Illness Date of Admission: 04/28/18 Chief Complaint: Sore throat, rash The patient is a 33 year old F with PMHx of rheumatoid arthritis, psoriatic arthritis, on chronic prednisone 10 mg p.o. daily, cardiomyopathy, thrombocytopenia of unclear etiology, recently seen in the ED in February 2018 with thrombocytopenia and left upper chest mass and transferred to [facility]. Workup was significant for abscess which was drained. Patient says she stayed for 6 days. After her discharge she has been treated for streptococcal pharyngitis 2 times. She comes in with complaints of lesions on her face and easy bruising. Vitals in the ED show a temperature of 97.7, heart rate is 128, blood pressure 156/117, respiratory rate of 16, SPO2 is 98% on room air. Routine blood work showed RBC count of 3.5, Hb 11.3, platelet count of 37(last plt count was 123 in February), her BMP was unremarkable. Cultures and throat cultures were taken in the ED Past Medical History Past Medical History (Chronic Problems): Chronic Problems (Last Updated 11/17/17 @ 13:53 by Luisa Negron) cardiomyopathy (Chronic) GERD (gastroesophageal reflux disease) (Chronic) Obesity (BMI 30.0-34.9) (Chronic) Hypothyroidism (Chronic) Medical History: Medical History (Last Updated 11/17/17 @ 13:53 by Luisa Negron) Acute systolic CHF (congestive heart failure) (Resolved) I50.21 cardiomyopathy (Chronic) O90.3 GERD (gastroesophageal reflux disease) (Chronic) K21.9 Obesity (BMI 30.0-34.9) (Chronic) E66.9 Hypothyroidism (Chronic) E03.9 Hypertension I10 Allergies amoxicillin Allergy (Verified 04/28/18 13:42) Rash doxycycline Allergy (Verified 04/28/18 13:42) Hives Iodinated Contrast- Oral and IV Dye [CONTRASTS] Allergy (Verified 04/28/18 13:42) Shortness of breath morphine Allergy (Verified 04/28/18 13:42) Swelling oxycodone Allergy (Verified 04/28/18 13:42) Hives Penicillins Allergy (Verified 04/28/18 13:42) Rash cephalexin [From Keflex] Adverse Reaction (Verified 04/28/18 13:42) Rash clindamycin Adverse Reaction (Verified 04/28/18 13:42) Rash codeine Adverse Reaction (Verified 04/28/18 13:42) Nausea Home Medications: Ambulatory Orders Medication Instructions Recorded Duloxetine Hcl [Cymbalta] 30 mg PO BID 03/07/18 Cephalexin [Cephalexin] 500 mg PO Q8H 04/28/18 Folic Acid [Folic Acid] 1 mg PO DAILY 04/28/18 Lisinopril [Lisinopril] 20 mg PO DAILY 04/28/18 Methotrexate [Methotrexate] 8 tab PO SA 04/28/18 Norethindrone [Norethindrone] 1 tab PO DAILY 04/28/18 Secukinumab [Cosentyx Pen] 1 injectable IM QMONTH 04/28/18 Surgical History: Surgical History (Last Updated 11/17/17 @ 13:53 by Luisa Negron) History of Z98.891 Surgical History: appendectomy, cholecystectomy, - - s/p 2 CS Psychiatric History: No pertinent psych hx 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 Denies: Difficulty Hearing, Head Aches, Hearing Changes, Nasal Congestion, Post Nasal Drip, Sinus Congestion, Sinus Drainage Cardiovascular: Denies: Chest Pain, Claudication, Chest Pressure, Orthopnea, Palpitations Respiratory: Denies: Cough, Hemoptysis, Pleuritic Pain, Shortness of breath at rest, Shortness of breath upon exertion, Sputum production Gastrointestinal: Denies: Abdominal Pain, Hematemesis, Hematochezia, Nausea, Vomiting Genitourinary: Denies: Dysuria Musculoskeletal: Reports: Joint Pain - generalised. Denies: Joint swelling, Joint Tenderness Skin: Denies: Rash, Wounds Neurological: Denies: Balance problems, Blurred vision, Difficulty swallowing, Focal weakness, Numbness, Tingling Psychiatric: Denies: Anxiety, Depression, Homicidal Ideations, Suicidal Ideations Hematologic/ Lymphatic: Denies: Easy Bruising, Easy Bleeding VTE Information - Inpt Only VTE Present on Admission: No VTE Pharm Prophylaxis ordered?: Yes Patient Problems: Active and Suspected Problems (Last Updated 11/17/17 @ 13:53 by Luisa Negron) Thrombocytopenia (Acute) - Physical Exam General: Alert, Oriented x3, Cooperative, No apparent distress HEENT: Atraumatic, PERRLA, EOMI, Normocephalic, - - Erythema of the pharynx Oral: Moist Mucosa Neck: Supple Lungs: Clear to auscultation, Normal air movement Cardiovascular: Regular rate, Regular Rhythm, Normal S1, Normal S2, No murmurs Abdomen: Bowel Sounds Present, Soft, Non Tender, Non-Distended, No Hepato-splenomegaly Extremities: No edema Skin: No rashes Musculoskeletal: No Tenderness to Palpation of Joints or Extremities Lymphatic: No Cervical, Supraclavicular, or Inguinal Adenopathy Neurological: Cranial nerves II-XII grossly intact, Neuro grossly intact Psych/Mental Status: Normal Affect, Appropriate Vital Signs Temp Pulse Resp BP Pulse Ox 98.7 F 118 H 20 H 156/98 H 100 04/28/18 13:42 04/28/18 18:01 04/28/18 18:01 04/28/18 18:01 04/28/18 18:01 Oxygen Delivery Method Room Air Weight: 131.1 kg Body Mass Index (BMI) 48.1 Laboratory Tests Past 24 Hrs 04/28/18 04/28/18 04/28/18 16:50 16:50 16:50 WBC 3.5 L RBC 3.90 L Hgb 11.3 L Hct 34.0 L MCV 87.2 MCH 29.0 MCHC 33.2 RDW 13.0 RDW Differential 40.9 Plt Count 37 L* MPV TNP Immature Gran % (Auto) 0.800 Neut % (Auto) 85.4 H Lymph % (Auto) 5.6 L [place] % (Auto) 7.3 Eos % (Auto) 0.6 Baso % (Auto) 0.3 Absolute Neuts (auto) 3.0 Absolute Lymphs (auto) 0.20 L Total Counted Not Reportable Differential Comment SEE COMMENT Platelet Estimate MKD DEC Plt Morphology Comment LARGE Anisocytosis RARE Sodium 137 Potassium 4.2 Chloride 103 Carbon Dioxide 26.0 Anion Gap 8 BUN 13 Creatinine 0.77 Estim Creat Clear Calc 91.76 Est GFR (MDRD) Af Amer 110 Est GFR (MDRD) Non-Af 91 BUN/Creatinine Ratio 17.0 Glucose 99 Lactic Acid 1.0 Calcium 8.2 L Total Bilirubin 0.60 AST 41 H ALT 29 Alkaline Phosphatase 64 Total Protein 7.6 Albumin 2.9 L Globulin 4.7 H Albumin/Globulin Ratio 0.6 L MRSA (PCR) 04/28/18 18:04 WBC RBC Hgb Hct MCV MCH MCHC RDW RDW Differential Plt Count MPV Immature Gran % (Auto) Neut % (Auto) Lymph % (Auto) [place] % (Auto) Eos % (Auto) Baso % (Auto) Absolute Neuts (auto) Absolute Lymphs (auto) Total Counted Differential Comment Platelet Estimate Plt Morphology Comment Anisocytosis Sodium Potassium Chloride Carbon Dioxide Anion Gap BUN Creatinine Estim Creat Clear Calc Est GFR (MDRD) Af Amer Est GFR (MDRD) Non-Af BUN/Creatinine Ratio Glucose Lactic Acid Calcium Total Bilirubin AST ALT Alkaline Phosphatase Total Protein Albumin Globulin Albumin/Globulin Ratio MRSA (PCR) Pending Assessment/Plan All Active Problems (Last Updated 11/17/17 @ 13:53 by Luisa Negron) Thrombocytopenia (Acute) Acute systolic CHF (congestive heart failure) (Resolved) 33 year old F with PMHx of rheumatoid arthritis, psoriatic arthritis, on chronic prednisone 10 mg p.o. daily, cardiomyopathy, thrombocytopenia of unclear etiology, recently seen in the ED in February 2018 with thrombocytopenia and left upper chest mass and transferred to [facility]. 1. Acute Pharyngitis, h/o streptococcal pharyngitis, h/o amoxicillin allergy, Plan: Will admit to MedSurg floor, start patient on aztreonam because of thrombocytopenia, ID consult, follow-up on throat cultures. 2. Acute on chronic thrombocytopenia, in the backdrop of pancytopenia, unclear etiology for the thrombocytopenic episode a month ago, history of autoimmune disease, will get records from [facility], hematology consulted(Dr. Madrid), will follow-up with labs in am 3. Scabbed lesions on her face, unclear etiology, will cover with vancomycin and continue on aztreonam, ID consult 4. History of cardiomyopathy 5. Hypertension, controlled, continue on lisinopril 6. RA/Psoriatic arthritic, on Cosentyx, methotrexate and prednisone, would continue on prednisone and hold methotrexate and Cosentyx 7. Morbid obesity, BMI 48.2 8. DVT prophylaxis with SCDs Code Visit Inpatient E&M: 16376 Init Hosp L3
[2018-04-28 19:54] VITALS: BMI 48.1
[2018-04-28 21:15] VITALS: BP 143/105; PULSE 107; RESP 18; TEMP 37.7; O2SAT 98
[2018-04-28 21:20] VITALS: BMI 48.1
[2018-04-28 21:36] VITALS: PULSE 107; RESP 18; O2SAT 98
[2018-04-28 21:47] LABS: M R Staph aureus DNA By PCR POSITIVE (Negative); Probe Check PASS
[2018-04-28 21:59] VITALS: PULSE 126
[2018-04-28] MEDS: predniSONE 10 MG Tablet PO (22:07)
[2018-04-28] MEDS: DULoxetine Hcl 30 MG Capsule PO (22:19)
--- NOTE | 2018-04-28 22:47 | PCM.RX.CS ---
Consult Pharmacy has been consulted to manage selected antiobiotic: Vancomycin Type of Consult: New start Suspected Infection: Other Prior Doses of Antibiotics Received/Current Regimen: Medications Vancomycin HCl 1,500 mg/ (Sodium Chloride) 530 mls @ 250 mls/hr IV Q12H NATHANIEL Discontinued Medications Vancomycin HCl 2,000 mg/ (Sodium Chloride) 540 mls @ 250 mls/hr IV X1 ONE Stop: 04/28/18 17:58 Last Admin: 04/28/18 17:27 Dose: 250 mls/hr Labs: Sodium 137 mmol/L (136-145) 04/28/18 16:50 Potassium 4.2 mmol/L (3.5-5.1) 04/28/18 16:50 Chloride 103 mmol/L (98-107) 04/28/18 16:50 Carbon Dioxide 26.0 mmol/L (21.0-32.0) 04/28/18 16:50 Anion Gap 8 (5-15) 04/28/18 16:50 BUN 13 mg/dL (7-18) 04/28/18 16:50 Creatinine 0.77 mg/dL (0.55-1.02) 04/28/18 16:50 Est GFR (MDRD) Af Amer 110 mL/min (>60) 04/28/18 16:50 Est GFR (MDRD) Non-Af 91 mL/min (>60) 04/28/18 16:50 BUN/Creatinine Ratio 17.0 RATIO (10-20) 04/28/18 16:50 Glucose 99 mg/dL (74-106) 04/28/18 16:50 Weight used for dosin kg Estimated Creatinine Clearance: 91 Goal Trough: 10-15 mcg/mL Pharmacy Plan for Drug Dosing: Pharmacy Service will continue to monitor and adjust dosing as required. Follow-Up Labs: Trough Vancomycin Labs to be done on [date and time ordered]: 04/30/18 @[id number]
[2018-04-28] MEDS: Acetaminophen 325 MG Tablet 650 MG PO (23:00)
[2018-04-28 23:59] VITALS: PULSE 99
[2018-04-29] VITALS (11 sets, daily range): BP systolic 135–163; BP diastolic 92–107; PULSE 88–109; RESP 16–18; TEMP 36.8–37.2; O2SAT 94–98
[2018-04-29] MEDS: 0.9% Normal Saline 1,000 ML 150 ML IV ×3 (01:49→18:54)
[2018-04-29] MEDS: Lisinopril 20 MG Tablet PO ×2 (01:49→08:03)
[2018-04-29] MEDS: guaiFENesin 10 ML UDC (200MG/10ML) PO (04:16)
[2018-04-29] MEDS: Acetaminophen 325 MG Tablet 650 MG PO ×2 (05:16→20:18)
[2018-04-29 06:31] LABS: Absolute Lymphocyte Count 0.18 X10^3/ul (0.83-4.51); Absolute Neutrophil Count 2.7 X10^3/uL (2.0-7.7); Eosinophil# 0.02 X10^3/uL; Eosinophils% 0.7 % (0-5); Lymphocyte # 0.18 X10^3/ul (4.0); Lymphocyte % 5.9 % (19-41); Mean Corp Hgb Conc 32.3 g/gl (32-36); Mean Corpuscular Hgb 27.9 pg (27.0-32.0); Mean Corpuscular Volume 86.4 fL (81-99); Monocyte# 0.16 X10^3/uL; Monocyte% 5.3 % (0-10); Neutrophil # 2.67 X10^3/uL (2.7-7.7); Neutrophil % 87.8 % (47-70); RBC Distribution Width CV 13.3 % (11.6-14.6); RBC Distribution Width SD 42.2 fl (35.1-43.9); Red Blood Count 3.59 M/mm3 (4.2-5.4)
[2018-04-29 06:42] LABS: Differential Indicated SCAN CRITERIA MET; POSITIVE COUNT YES; POSITIVE DIFFERENTIAL YES; POSITIVE MORPHOLOGY YES; Platelet Count 27 K/mm3 (150-450)
[2018-04-29 06:46] LABS: Anion Gap 7 (5-15); BUN 16 mg/dL (7-18); BUN/Creat Ratio 17.6 RATIO (10-20); Calcium,Total 7.9 mg/dL (8.5-10.1); Chloride 109 mmol/L (98-107); Creatinine, Serum 0.91 mg/dL (0.55-1.02); EST Glomerular Filtration Rate 75 mL/min (>60); Est Glom Filt Rate - Afr Amer 90 mL/min (>60); Estimated Creatinine Clearance 74.51 ml/min; Glucose 148 mg/dL (74-106); Potassium 4.2 mmol/L (3.5-5.1); Sodium Level 140 mmol/L (136-145)
[2018-04-29 06:52] LABS: Differential Comment SCANNED
[2018-04-29 06:53] LABS: Platelet Estimate MKD DEC (ADEQ)
--- NOTE | 2018-04-29 07:10 | PCA ---
Cancelled pt CT scan at [place], per primary RN Bettina.
--- NOTE | 2018-04-29 07:49 | PCM.CONS.GEN ---
Problem List (1) Thrombocytopenia Status: Acute (2) Leukopenia due to antineoplastic chemotherapy Status: Acute Reason for Consult Date of Consultation: 04/29/18 Reason for Consultation: Thrombocytopenia and leukopenia History of Present Illness: The patient is a 33 year old F with PMHx of rheumatoid arthritis, psoriatic arthritis, on chronic prednisone 10 mg p.o. daily, cardiomyopathy, recently seen in the ED in February 2018 with thrombocytopenia and left upper chest mass and transferred to [facility]. Workup was significant for abscess which was drained. Patient says she stayed for 6 days. After her discharge she has been treated for streptococcal pharyngitis. She has a history of penicillin allergy. Patient presented to urgent care 2 weeks ago with sore throat and rash on her lower extremity. She will try over the medication without relief, she has no fever. Her initial rapid strep was negative and subsequent culture however came back positive. Started on Keflex 2 weeks ago, after starting antibiotics she noticed during lesion on her face and swelling inside her mouth. She also bruises easily. Patient also has been taking methotrexate weekly for treatment of her rheumatoid arthritis. Her last dose was Wednesday. Vitals in the ED show a temperature of 97.7, heart rate is 128, blood pressure 156/117, respiratory rate of 16, SPO2 is 98% on room air. Routine blood work showed RBC count of 3.5, Hb 11.3, platelet count of 37(last plt count was 123 in February), her BMP was unremarkable. Cultures and throat cultures were taken in the ED. since admission, Keflex was discontinued and she was started on aztreonam and vancomycin. Past Medical History Past Medical History (Chronic Problems): Chronic Problems (Last Updated 04/29/18 @ 07:55 by Rosita Naylor MD) cardiomyopathy (Chronic) GERD (gastroesophageal reflux disease) (Chronic) Obesity (BMI 30.0-34.9) (Chronic) Hypothyroidism (Chronic) Medical History: Medical History (Last Updated 04/29/18 @ 07:55 by Rosita Naylor MD) Acute systolic CHF (congestive heart failure) (Resolved) I50.21 cardiomyopathy (Chronic) O90.3 GERD (gastroesophageal reflux disease) (Chronic) K21.9 Obesity (BMI 30.0-34.9) (Chronic) E66.9 Hypothyroidism (Chronic) E03.9 Psoriatic arthritis L40.50 Rheumatoid arthritis M06.9 Hypertension I10 Allergies amoxicillin Allergy (Verified 04/28/18 13:42) Rash doxycycline Allergy (Verified 04/28/18 13:42) Hives Iodinated Contrast- Oral and IV Dye [CONTRASTS] Allergy (Verified 04/28/18 13:42) Shortness of breath morphine Allergy (Verified 04/28/18 13:42) Swelling oxycodone Allergy (Verified 04/28/18 13:42) Hives Penicillins Allergy (Verified 04/28/18 13:42) Rash cephalexin [From Keflex] Adverse Reaction (Verified 04/28/18 13:42) Rash clindamycin Adverse Reaction (Verified 04/28/18 13:42) Rash codeine Adverse Reaction (Verified 04/28/18 13:42) Nausea Home Medications: Ambulatory Orders Medication Instructions Recorded Duloxetine Hcl [Cymbalta] 30 mg PO BID 03/07/18 Cephalexin [Cephalexin] 500 mg PO Q8H 04/28/18 Folic Acid [Folic Acid] 1 mg PO DAILY 04/28/18 Lisinopril [Lisinopril] 20 mg PO DAILY 04/28/18 Methotrexate [Methotrexate] 8 tab PO SA 04/28/18 Norethindrone [Norethindrone] 1 tab PO DAILY 04/28/18 Secukinumab [Cosentyx Pen] 1 injectable IM QMONTH 04/28/18 Surgical History: Surgical History (Last Updated 11/17/17 @ 13:53 by Luisa Negron) History of Z98.891 Surgical History: appendectomy, cholecystectomy, - - s/p 2 CS Psychiatric History: No pertinent psych hx 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 Lives: With Family Smoking Status: Never smoker Tobacco Use: Non-smoker Alcohol: None Drugs: None - *Family History Maternal History Items: No pertinent history Paternal History Items: Unknown Review of Systems Hematologic/ Lymphatic: Reports: Easy Bruising Patient Problems: Active and Suspected Problems (Last Updated 04/29/18 @ 07:55 by Rosita Naylor MD) Thrombocytopenia (Acute) Leukopenia due to antineoplastic chemotherapy (Acute) - Physical Exam General: Alert, Oriented x3, No apparent distress HEENT: - - Vesicular lesions Oral: No Gingival or Mucosal Lesions/ Ulcerations Neck: Supple, No JVD Lungs: Clear to auscultation, Normal air movement, No rhonchi, No wheeze, No rales Cardiovascular: Regular rate, Regular Rhythm, Normal S1, Normal S2, No murmurs Abdomen: Bowel Sounds Present, Non Tender, Non-Distended, No Hepato-splenomegaly, Obese Extremities: No clubbing, No cyanosis, No edema, - - Petechiae, ecchymosis on extremities Skin: No rashes, Skin Tear, Excoriated - On face Musculoskeletal: No Tenderness to Palpation of Joints or Extremities Lymphatic: No Cervical, Supraclavicular, or Inguinal Adenopathy Neurological: Neuro grossly intact Psych/Mental Status: Normal Affect Vital Signs Temp Pulse Resp BP Pulse Ox 98.3 F 104 H 18 160/107 H 96 04/29/18 02:00 04/29/18 03:59 04/29/18 02:00 04/29/18 02:00 04/29/18 02:00 Oxygen Delivery Method Room Air Weight: 289 lb 0.416 oz Body Mass Index (BMI) 48.1 Intake and Output for Last 24 Hours 04/27/18 04/28/18 04/29/18 23:59 23:59 23:59 Intake Total 3480 / 3480 Output Total 1801 / 1801 Balance 1679 / 1679 Laboratory Tests Past 24 Hrs 04/29/18 04/29/18 05:40 05:40 WBC 3.0 L RBC 3.59 L Hgb 10.0 L Hct 31.0 L MCV 86.4 MCH 27.9 MCHC 32.3 RDW 13.3 RDW Differential 42.2 Plt Count 27 L* Immature Gran % (Auto) 0.300 Neut % (Auto) 87.8 H Lymph % (Auto) 5.9 L Ware % (Auto) 5.3 Eos % (Auto) 0.7 Baso % (Auto) 0.0 Absolute Neuts (auto) 2.7 Absolute Lymphs (auto) 0.18 L Total Counted Not Reportable Differential Comment SCANNED Diff Path Review May foll Platelet Estimate MKD DEC Sodium 140 Potassium 4.2 Chloride 109 H Carbon Dioxide 24.0 Anion Gap 7 BUN 16 Creatinine 0.91 Estim Creat Clear Calc 74.51 Est GFR (MDRD) Af Amer 90 Est GFR (MDRD) Non-Af 75 BUN/Creatinine Ratio 17.6 Glucose 148 H Calcium 7.9 L Peripheral blood smear: Normocytic normochromic anemia, lymphopenia, platelets decreased with no clumping or clotting. Assessment/Plan All Active Problems (Last Updated 04/29/18 @ 07:55 by Rosita Naylor MD) Thrombocytopenia (Acute) Leukopenia due to antineoplastic chemotherapy (Acute) Acute systolic CHF (congestive heart failure) (Resolved) 1) thrombocytopenia-secondary to allergic reaction to Keflex; methotrexate; and possible viral illness or infection. Plan: -Avoid PCN, Keflex in the future. -Consider stopping all antibiotics if cultures are negative. -Hold MTX treatment until thrombocytopenia improved -Consider increasing prednisone if patient has flares of rheumatoid arthritis -Check hepatitis C antibody and HIV 1 & 2 screen -Avoid heparin, and aspirin because of thrombocytopenia 2) lymphopenia-secondary to rheumatoid arthritis /psoriatic arthritis & prednisone therapy -Patient is not neutropenic but with soft tissue infection, possible acquire hypogammaglobulinemia Plan: - Check quantitative immunoglobulins IgG/IgA/IgM/IgE today. -Consult infectious disease? cc: Dr. Rosita Naylor; Dr. Kiki Lua Code Visit Office Visits / Consults: [id number] IP Consult L5
[2018-04-29] MEDS: predniSONE 10 MG Tablet PO (08:00)
[2018-04-29] MEDS: Folic Acid 1 MG Tablet PO (08:00)
[2018-04-29] MEDS: Nystatin Powder 15gm Bottle 1 APPLIC TOPICAL (08:03)
[2018-04-29] MEDS: DULoxetine Hcl 30 MG Capsule PO ×2 (08:04→21:58)
--- NOTE | 2018-04-29 08:05 | CON.PCM_ITS ---
Problem List (1) Thrombocytopenia Status: Acute (2) Leukopenia due to antineoplastic chemotherapy Status: Acute Reason for Consult Date of Consultation: 04/29/18 Reason for Consultation: Thrombocytopenia and leukopenia History of Present Illness: The patient is a 33 year old F with PMHx of rheumatoid arthritis, psoriatic arthritis, on chronic prednisone 10 mg p.o. daily, cardiomyopathy, recently seen in the ED in February 2018 with thrombocytopenia and left upper chest mass and transferred to [facility]. Workup was significant for abscess which was drained. Patient says she stayed for 6 days. After her discharge she has been treated for streptococcal pharyngitis. She has a history of penicillin allergy. Patient presented to urgent care 2 weeks ago with sore throat and rash on her lower extremity. She will try over the medication without relief, she has no fever. Her initial rapid strep was negative and subsequent culture however came back positive. Started on Keflex 2 weeks ago, after starting antibiotics she noticed during lesion on her face and swelling inside her mouth. She also bruises easily. Patient also has been taking methotrexate weekly for treatment of her rheumatoid arthritis. Her last dose was Wednesday. Vitals in the ED show a temperature of 97.7, heart rate is 128, blood pressure 156/117, respiratory rate of 16, SPO2 is 98% on room air. Routine blood work showed RBC count of 3.5, Hb 11.3, platelet count of 37(last plt count was 123 in February), her BMP was unremarkable. Cultures and throat cultures were taken in the ED. since admission, Keflex was discontinued and she was started on aztreonam and vancomycin. Past Medical History Past Medical History (Chronic Problems): Chronic Problems (Last Updated 04/29/18 @ 07:55 by Rosita Naylor MD) cardiomyopathy (Chronic) GERD (gastroesophageal reflux disease) (Chronic) Obesity (BMI 30.0-34.9) (Chronic) Hypothyroidism (Chronic) Medical History: Medical History (Last Updated 04/29/18 @ 07:55 by Rosita Naylor MD) Acute systolic CHF (congestive heart failure) (Resolved) I50.21 cardiomyopathy (Chronic) O90.3 GERD (gastroesophageal reflux disease) (Chronic) K21.9 Obesity (BMI 30.0-34.9) (Chronic) E66.9 Hypothyroidism (Chronic) E03.9 Psoriatic arthritis L40.50 Rheumatoid arthritis M06.9 Hypertension I10 Allergies amoxicillin Allergy (Verified 04/28/18 13:42) Rash doxycycline Allergy (Verified 04/28/18 13:42) Hives Iodinated Contrast- Oral and IV Dye [CONTRASTS] Allergy (Verified 04/28/18 13:42 ) Shortness of breath morphine Allergy (Verified 04/28/18 13:42) Swelling oxycodone Allergy (Verified 04/28/18 13:42) Hives Penicillins Allergy (Verified 04/28/18 13:42) Rash cephalexin [From Keflex] Adverse Reaction (Verified 04/28/18 13:42) Rash clindamycin Adverse Reaction (Verified 04/28/18 13:42) Rash codeine Adverse Reaction (Verified 04/28/18 13:42) Nausea Home Medications: Ambulatory Orders Medication Instructions Recorded Duloxetine Hcl [Cymbalta] 30 mg PO BID 03/07/18 Cephalexin [Cephalexin] 500 mg PO Q8H 04/28/18 Folic Acid [Folic Acid] 1 mg PO DAILY 04/28/18 Lisinopril [Lisinopril] 20 mg PO DAILY 04/28/18 Methotrexate [Methotrexate] 8 tab PO SA 04/28/18 Norethindrone [Norethindrone] 1 tab PO DAILY 04/28/18 Secukinumab [Cosentyx Pen] 1 injectable IM QMONTH 04/28/18 Surgical History: Surgical History (Last Updated 11/17/17 @ 13:53 by Luisa Negron) History of Z98.891 Surgical History: appendectomy, cholecystectomy, - - s/p 2 CS Psychiatric History: No pertinent 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 Lives: With Family Smoking Status: Never smoker Tobacco Use: Non-smoker Alcohol: None Drugs: None - *Family History Maternal History Items: No pertinent history Paternal History Items: Unknown Review of Systems Hematologic/ Lymphatic: Reports: Easy Bruising Patient Problems: Active and Suspected Problems (Last Updated 04/29/18 @ 07:55 by Rosita Naylor MD) Thrombocytopenia (Acute) Leukopenia due to antineoplastic chemotherapy (Acute) - Physical Exam General: Alert, Oriented x3, No apparent distress HEENT: - - Vesicular lesions Oral: No Gingival or Mucosal Lesions/ Ulcerations Neck: Supple, No JVD Lungs: Clear to auscultation, Normal air movement, No rhonchi, No wheeze, No rales Cardiovascular: Regular rate, Regular Rhythm, Normal S1, Normal S2, No murmurs Abdomen: Bowel Sounds Present, Non Tender, Non-Distended, No Hepato-splenomegaly , Obese Extremities: No clubbing, No cyanosis, No edema, - - Petechiae, ecchymosis on extremities Skin: No rashes, Skin Tear, Excoriated - On face Musculoskeletal: No Tenderness to Palpation of Joints or Extremities Lymphatic: No Cervical, Supraclavicular, or Inguinal Adenopathy Neurological: Neuro grossly intact Psych/Mental Status: Normal Affect Vital Signs Temp Pulse Resp BP Pulse Ox 98.3 F 104 H 18 160/107 H 96 04/29/18 02:00 04/29/18 03:59 04/29/18 02:00 04/29/18 02:00 04/29/18 02:00 Oxygen Delivery Method Room Air Weight: 289 lb 0.416 oz Body Mass Index (BMI) 48.1 Intake and Output for Last 24 Hours 04/27/18 04/28/18 04/29/18 23:59 23:59 23:59 Intake Total 3480 / 3480 Output Total 1801 / 1801 Balance 1679 / 1679 Laboratory Tests Past 24 Hrs 04/29/18 04/29/18 05:40 05:40 WBC 3.0 L RBC 3.59 L Hgb 10.0 L Hct 31.0 L MCV 86.4 MCH 27.9 MCHC 32.3 RDW 13.3 RDW Differential 42.2 Plt Count 27 L* Immature Gran % (Auto) 0.300 Neut % (Auto) 87.8 H Lymph % (Auto) 5.9 L Meigs % (Auto) 5.3 Eos % (Auto) 0.7 Baso % (Auto) 0.0 Absolute Neuts (auto) 2.7 Absolute Lymphs (auto) 0.18 L Total Counted Not Reportable Differential Comment SCANNED Diff Path Review May foll Platelet Estimate MKD DEC Sodium 140 Potassium 4.2 Chloride 109 H Carbon Dioxide 24.0 Anion Gap 7 BUN 16 Creatinine 0.91 Estim Creat Clear Calc 74.51 Est GFR (MDRD) Af Amer 90 Est GFR (MDRD) Non-Af 75 BUN/Creatinine Ratio 17.6 Glucose 148 H Calcium 7.9 L Peripheral blood smear: Normocytic normochromic anemia, lymphopenia, platelets decreased with no clumping or clotting. Assessment/Plan All Active Problems (Last Updated 04/29/18 @ 07:55 by Rosita Naylor MD) Thrombocytopenia (Acute) Leukopenia due to antineoplastic chemotherapy (Acute) Acute systolic CHF (congestive heart failure) (Resolved) 1) thrombocytopenia-secondary to allergic reaction to Keflex; methotrexate; and possible viral illness or infection. Plan: -Avoid PCN, Keflex in the future. -Consider stopping all antibiotics if cultures are negative. -Hold MTX treatment until thrombocytopenia improved -Consider increasing prednisone if patient has flares of rheumatoid arthritis -Check hepatitis C antibody and HIV 1 & 2 screen -Avoid heparin, and aspirin because of thrombocytopenia 2) lymphopenia-secondary to rheumatoid arthritis /psoriatic arthritis & prednisone therapy -Patient is not neutropenic but with soft tissue infection, possible acquire hypogammaglobulinemia Plan: - Check quantitative immunoglobulins IgG/IgA/IgM/IgE today. -Consult infectious disease? cc: Dr. Rosita Naylor; Dr. Kiki Lua Code Visit Office Visits / Consults: [id number] IP Consult L5
[2018-04-29 10:37] LABS: HIV - WCH Non-Reactive (Nonreactive)
[2018-04-29 10:48] LABS: Pathologist Review Reviewed
--- NOTE | 2018-04-29 12:34 | PCM.PN.HOSP ---
Patient Problems: Active and Suspected Problems (Last Updated 04/29/18 @ 07:55 by Rosita Naylor MD) Thrombocytopenia (Acute) Leukopenia due to antineoplastic chemotherapy (Acute) Subjective: Patient is a 33-year-old female with a history of rheumatoid arthritis, psoriatic arthritis, cardiomyopathy, thrombocytopenia, hypothyroidism and GERD. She was admitted via the ED on 04/28/2018 with complaint of facial lesions, easy bruising and a sore throat. Antecedent history revealed that patient was seen in the ED in February 2018 with thrombocytopenia and a left upper chest mass and was transferred to [facility]. Patient was managed for an abscess of the left upper chest which was drained subsequently. She has been on methotrexate for rheumatoid arthritis and psoriatic arthritis as well as chronic prednisone. She is being managed for acute pharyngitis to rule out strep pharyngitis. Review the ED showed a temperature of 97.7 with heart rate of 128 and respiratory rate of 16 and SPO2 of 98% on room air. CBC showed hemoglobin of 11.3 and platelet count of 137 and no white cell count. Blood cultures and throat cultures were taken in the ED. Patient was started on IV vancomycin and aztreonam. Of note patient has penicillin allergy. Patient seen and examined today. Sore throat is still the same. SHe admits to a dry, occasional cough. She denies any fever or chills, or chest pain, any shortness of breath, any abdominal pain, any diarrhea vomiting. Review of systems otherwise negative. Labs and vitals reviewed. Vitals/I&O's: Vital Signs Temp Pulse Resp BP Pulse Ox 98.5 F 89 16 135/97 H 97 04/29/18 08:00 04/29/18 10:00 04/29/18 08:00 04/29/18 08:00 04/29/18 11:53 Oxygen Delivery Method Room Air Weight: 289 lb 0.416 oz Body Mass Index (BMI) 48.1 Intake and Output for Last 24 Hours 04/27/18 04/28/18 04/29/18 23:59 23:59 23:59 Intake Total 3480 / 3480 Output Total 1801 / 1801 Balance 1679 / 1679 General: Alert, Oriented x3, Cooperative, No apparent distress HEENT: Atraumatic, PERRLA, EOMI, Normocephalic Oral: - - throat mildly erythematous; enlarged tonsils visualised. Neck: Supple, No JVD, - - Right side of neck is hirsch than left, and has moderate tenderness on examination of right side of neck Lungs: Clear to auscultation, Normal air movement, No rhonchi Cardiovascular: Regular rate, Regular Rhythm, Normal S1, Normal S2, No murmurs Abdomen: Bowel Sounds Present, Soft, Non Tender, Non-Distended, No Hepato-splenomegaly Extremities: No clubbing, No cyanosis, No edema, Capillary Refill Less than 3 Seconds, No Calf Tenderness Skin: - - resolving scabs over both cheeks. Ecchymotic patch over dorsum of left foot. FIne, petechial rash over upper chest Musculoskeletal: No Tenderness to Palpation of Joints or Extremities Lymphatic: No Cervical, Supraclavicular, or Inguinal Adenopathy Neurological: Cranial nerves II-XII grossly intact, Motor Exam 5/5 strength throughout Psych/Mental Status: Normal Affect, Appropriate, Alert and oriented to time, place, person, mood and affect Laboratory Results 04/29/18 05:40: WBC 3.0 L, RBC 3.59 L, Hgb 10.0 L, Hct 31.0 L, MCV 86.4, MCH 27.9, MCHC 32.3, RDW 13.3, RDW Differential 42.2, Plt Count 27 L*, Immature Gran % (Auto) 0.300, Neut % (Auto) 87.8 H, Lymph % (Auto) 5.9 L, Mcclain % (Auto) 5.3, Eos % (Auto) 0.7, Baso % (Auto) 0.0, Absolute Neuts (auto) 2.7, Absolute Lymphs (auto) 0.18 L, Total Counted Not Reportable, Differential Comment SCANNED, Diff Path Review Reviewed, Platelet Estimate MKD 04/29/18 05:40: Sodium 140, Potassium 4.2, Chloride 109 H, Carbon Dioxide 24.0, Anion Gap 7, BUN 16, Creatinine 0.91, Estim Creat Clear Calc 74.51, Est GFR (MDRD) Af Amer 90, Est GFR (MDRD) Non-Af 75, BUN/Creatinine Ratio 17.6, Glucose 148 H, Calcium 7.9 L 04/29/18 08:52: Hep C Antibody RIBA Pending, Hep C RIBA Interpret Pending, Hepatitis C Comment Pending 04/29/18 08:52: HIV 1&2 Antibody Non-Reactive 04/29/18 08:52: IgG Pending, IgA Pending, IgM Pending, IgE Pending Current Medications Acetaminophen (Tylenol) 650 mg PO Q6H PRN PRN PRN Reason: PAIN Last Admin: 04/29/18 05:16 Dose: 650 mg Duloxetine HCl (Cymbalta) 30 mg PO BID [facility] Last Admin: 04/29/18 08:04 Dose: 30 mg [facility] Last Admin: 04/29/18 08:00 Dose: 1 mg Guaifenesin (Robitussin) 10 ml PO Q8H PRN PRN PRN Reason: COUGH Last Admin: 04/29/18 04:16 Dose: 10 ml Sodium Chloride () 1,000 mls @ 150 mls/hr IV .Q6H40M [facility] Last Admin: 04/29/18 12:21 Dose: 150 mls/hr Aztreonam 2 gm/ Dextrose 100 mls @ 150 mls/hr IV Q8 [facility] Last Admin: 04/29/18 06:45 Dose: 150 mls/hr Vancomycin HCl 1,500 mg/ (Sodium Chloride) 530 mls @ 250 mls/hr IV Q12H [facility] Last Admin: 04/29/18 04:16 Dose: 250 mls/hr Lisinopril (Zestril) 20 mg PO DAILY [facility] Last Admin: 04/29/18 08:03 Dose: 20 mg Magnesium Hydroxide (Milk Of Magnesia) 30 ml PO DAILY PRN PRN PRN Reason: Constipation Nutritional Formula (Lactose Free) (Ensure Enlive) 120 ml PO 4X/DAY [facility] Last Admin: 04/29/18 08:03 Dose: 120 ml Nystatin (Mycostatin Powder) 1 applic TOPICAL BID [facility] PRN Reason: Protocol Last Admin: 04/29/18 08:03 Dose: 1 [facility] Last Admin: 04/29/18 08:00 Dose: 10 mg Sodium Chloride () 5 - 30 ml IV UD PRN PRN Reason: SALINE FLUSH Medical Necessity - Tobacco Use Smoking Status: Never smoker Tobacco Use: Non-smoker Assessment/Plan All Active Problems (Last Updated 04/29/18 @ 07:55 by Rosita Naylor MD) Thrombocytopenia (Acute) Leukopenia due to antineoplastic chemotherapy (Acute) Acute systolic CHF (congestive heart failure) (Resolved) 3-year-old female with past history of rheumatoid arthritis, psoriatic arthritis and cardiomyopathy as well as thrombocytopenia admitted with a complaint of sore throat and persistent facial ulcerations 1. Acute pharyngitis sore throat remains the same. Has right sided fullness and tenderness of the neck no white cell count. on IV aztreonam and vancomycin; has no dental caries, and throat is mildly erythematous neck soft tissue CT: normal unenhanced CT Of soft tissues of neck. Previously noted supraclavicular mass in the left appears to have resolved. No evidence of significant tonsillar hypertrophy or peritonsillar abscess although sensitivity is limited without IV contrast. ID consulted; I think she may need some anerobic coverage, and will wish to add on metronidazole; however, will defer to ID recommendations. 2. Acute on chronic thrombocytopenia platelets 37; baseline ~ 137. Likely due to methotrexate and possibly allergic reaction to Keflex; may also be due to viral illness or infection. 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 To increase prednisone with acute flares of RA. checking hep C antibody, HIV 1 and 2 screen as well 3. Lymphopenia may be due to RA/psoriatic arthritis and prednisone therapy not neutropenic. Hematology on board checking IgG/A/M/E levels; if low, may benefit from replacement 4. Facial ulcerations etiology unclear. Not resolving. Currently on IV vancomycin and aztreonam. Will monitor 5. Hypertension: Stable on lisinopril. 6. cardiomyopathy: Stable. 7. RA and psoriatic arthritis: MEthotrexate and Cosentyx on hold. Will continue prednisone 8. DVT prophylaxis: SCDs 9 GI prophylaxis: Famotidine This note was generated with [employer] dictation software. It may contain incorrect words, spelling, and punctuation that were not noted in checking the note before signing. Code Visit Inpatient E&M: 80159 Subs Hosp L3
--- NOTE | 2018-04-29 12:51 | PN_ITS ---
Patient Problems: Active and Suspected Problems (Last Updated 04/29/18 @ 07:55 by Rosita Naylor MD) Thrombocytopenia (Acute) Leukopenia due to antineoplastic chemotherapy (Acute) Subjective: Patient is a 33-year-old female with a history of rheumatoid arthritis, psoriatic arthritis, cardiomyopathy, thrombocytopenia, hypothyroidism and GERD. She was admitted via the ED on 04/28/2018 with complaint of facial lesions, easy bruising and a sore throat. Antecedent history revealed that patient was seen in the ED in February 2018 with thrombocytopenia and a left upper chest mass and was transferred to [facility]. Patient was managed for an abscess of the left upper chest which was drained subsequently. She has been on methotrexate for rheumatoid arthritis and psoriatic arthritis as well as chronic prednisone. She is being managed for acute pharyngitis to rule out strep pharyngitis. Review the ED showed a temperature of 97.7 with heart rate of 128 and respiratory rate of 16 and SPO2 of 98% on room air. CBC showed hemoglobin of 11.3 and platelet count of 137 and no white cell count. Blood cultures and throat cultures were taken in the ED. Patient was started on IV vancomycin and aztreonam. Of note patient has penicillin allergy. Patient seen and examined today. Sore throat is still the same. SHe admits to a dry, occasional cough. She denies any fever or chills, or chest pain, any shortness of breath, any abdominal pain, any diarrhea vomiting. Review of systems otherwise negative. Labs and vitals reviewed. Vitals/I&O's: Vital Signs Temp Pulse Resp BP Pulse Ox 98.5 F 89 16 135/97 H 97 04/29/18 08:00 04/29/18 10:00 04/29/18 08:00 04/29/18 08:00 04/29/18 11:53 Oxygen Delivery Method Room Air Weight: 289 lb 0.416 oz Body Mass Index (BMI) 48.1 Intake and Output for Last 24 Hours 04/27/18 04/28/18 04/29/18 23:59 23:59 23:59 Intake Total 3480 / 3480 Output Total 1801 / 1801 Balance 1679 / 1679 General: Alert, Oriented x3, Cooperative, No apparent distress HEENT: Atraumatic, PERRLA, EOMI, Normocephalic Oral: - - throat mildly erythematous; enlarged tonsils visualised. Neck: Supple, No JVD, - - Right side of neck is hirsch than left, and has moderate tenderness on examination of right side of neck Lungs: Clear to auscultation, Normal air movement, No rhonchi Cardiovascular: Regular rate, Regular Rhythm, Normal S1, Normal S2, No murmurs Abdomen: Bowel Sounds Present, Soft, Non Tender, Non-Distended, No Hepato- splenomegaly Extremities: No clubbing, No cyanosis, No edema, Capillary Refill Less than 3 Seconds, No Calf Tenderness Skin: - - resolving scabs over both cheeks. Ecchymotic patch over dorsum of left foot. FIne, petechial rash over upper chest Musculoskeletal: No Tenderness to Palpation of Joints or Extremities Lymphatic: No Cervical, Supraclavicular, or Inguinal Adenopathy Neurological: Cranial nerves II-XII grossly intact, Motor Exam 5/5 strength throughout Psych/Mental Status: Normal Affect, Appropriate, Alert and oriented to time, place, person, mood and affect Laboratory Results 04/29/18 05:40: WBC 3.0 L, RBC 3.59 L, Hgb 10.0 L, Hct 31.0 L, MCV 86.4, MCH 27.9, MCHC 32.3, RDW 13.3, RDW Differential 42.2, Plt Count 27 L*, Immature Gran % (Auto) 0.300, Neut % (Auto) 87.8 H, Lymph % (Auto) 5.9 L, [place] % (Auto) 5.3, Eos % (Auto) 0.7, Baso % (Auto) 0.0, Absolute Neuts (auto) 2.7, Absolute Lymphs (auto) 0.18 L, Total Counted Not Reportable, Differential Comment SCANNED , Diff Path Review Reviewed, Platelet Estimate MKD 04/29/18 05:40: Sodium 140, Potassium 4.2, Chloride 109 H, Carbon Dioxide 24.0, Anion Gap 7, BUN 16, Creatinine 0.91, Estim Creat Clear Calc 74.51, Est GFR ( MDRD) Af Amer 90, Est GFR (MDRD) Non-Af 75, BUN/Creatinine Ratio 17.6, Glucose 148 H, Calcium 7.9 L 04/29/18 08:52: Hep C Antibody RIBA Pending, Hep C RIBA Interpret Pending, Hepatitis C Comment Pending 04/29/18 08:52: HIV 1&2 Antibody Non-Reactive 04/29/18 08:52: IgG Pending, IgA Pending, IgM Pending, IgE Pending Current Medications Acetaminophen (Tylenol) 650 mg PO Q6H PRN PRN PRN Reason: PAIN Last Admin: 04/29/18 05:16 Dose: 650 mg Duloxetine HCl (Cymbalta) 30 mg PO BID [facility] Last Admin: 04/29/18 08:04 Dose: 30 mg [facility] Last Admin: 04/29/18 08:00 Dose: 1 mg Guaifenesin (Robitussin) 10 ml PO Q8H PRN PRN PRN Reason: COUGH Last Admin: 04/29/18 04:16 Dose: 10 ml Sodium Chloride () 1,000 mls @ 150 mls/hr IV .Q6H40M [facility] Last Admin: 04/29/18 12:21 Dose: 150 mls/hr Aztreonam 2 gm/ Dextrose 100 mls @ 150 mls/hr IV Q8 [facility] Last Admin: 04/29/18 06:45 Dose: 150 mls/hr Vancomycin HCl 1,500 mg/ (Sodium Chloride) 530 mls @ 250 mls/hr IV Q12H [facility] Last Admin: 04/29/18 04:16 Dose: 250 mls/hr Lisinopril (Zestril) 20 mg PO DAILY [facility] Last Admin: 04/29/18 08:03 Dose: 20 mg Magnesium Hydroxide (Milk Of Magnesia) 30 ml PO DAILY PRN PRN PRN Reason: Constipation Nutritional Formula (Lactose Free) (Ensure Enlive) 120 ml PO 4X/DAY [facility] Last Admin: 04/29/18 08:03 Dose: 120 ml Nystatin (Mycostatin Powder) 1 applic TOPICAL BID [facility] PRN Reason: Protocol Last Admin: 04/29/18 08:03 Dose: 1 applic [facility] () [facility] Last Admin: 04/29/18 08:00 Dose: 10 mg Sodium Chloride () 5 - 30 ml IV UD PRN PRN Reason: SALINE FLUSH Medical Necessity - Tobacco Use Smoking Status: Never smoker Tobacco Use: Non-smoker Assessment/Plan All Active Problems (Last Updated 04/29/18 @ 07:55 by Rosita Naylor MD) Thrombocytopenia (Acute) Leukopenia due to antineoplastic chemotherapy (Acute) Acute systolic CHF (congestive heart failure) (Resolved) 3-year-old female with past history of rheumatoid arthritis, psoriatic arthritis and cardiomyopathy as well as thrombocytopenia admitted with a complaint of sore throat and persistent facial ulcerations 1. Acute pharyngitis * sore throat remains the same. Has right sided fullness and tenderness of the neck * no white cell count. * on IV aztreonam and vancomycin; has no dental caries, and throat is mildly erythematous * neck soft tissue CT: normal unenhanced CT Of soft tissues of neck. Previously noted supraclavicular mass in the left appears to have resolved. No evidence of significant tonsillar hypertrophy or peritonsillar abscess although sensitivity is limited without IV contrast. * ID consulted; I think she may need some anerobic coverage, and will wish to add on metronidazole; however, will defer to ID recommendations. * 2. Acute on chronic thrombocytopenia * platelets 37; baseline ~ 137. Likely due to methotrexate and possibly allergic reaction to Keflex; may also be due to viral illness or infection. * discussed with farm or ranch animal caretaker; to stop methotrexate until thrombocytopenia has improved * to avoid penicillins and Keflex in the future * avoid heparin, and continue prednisolone. To increase prednisone with acute flares of RA. * checking hep C antibody, HIV 1 and 2 screen as well * 3. Lymphopenia * may be due to RA/psoriatic arthritis and prednisone therapy * not neutropenic. Hematology on board * checking IgG/A/M/E levels; if low, may benefit from replacement * 4. Facial ulcerations * etiology unclear. Not resolving. Currently on IV vancomycin and aztreonam. * Will monitor * 5. Hypertension: Stable on lisinopril. 6. cardiomyopathy: Stable. 7. RA and psoriatic arthritis: MEthotrexate and Cosentyx on hold. Will continue prednisone 8. DVT prophylaxis: SCDs 9 GI prophylaxis: Famotidine This note was generated with Imagine K12ation software. It may contain incorrect words, spelling, and punctuation that were not noted in checking the note before signing. Code Visit Inpatient E&M: 82438 Subs Hosp L3
--- NOTE | 2018-04-29 13:38 | PCM.HP.ID ---
Problem List (1) Thrombocytopenia Status: Acute Reason for Consult: rash Consulted by: Dr. Tenorio History of Present Illness: The patient is a 33 year old F with RA who presented with skin rash and facial lesions. Presented in mid-February with neck pain and headache. Had LP done in ED, came back a week later with worsening sx, found to have L supraclavicular abscess, transferred to [place]. Aspiration done and drain placed. Seen by Dr. Gatica with ID. Abscess cx (+) for GAS. Single Bcx with GPR. Had neg echo and CT a/p. Given iv vanc while in the hospital and d/c home on 2 weeks of po keflex and clinda. Developed rash on clinda so it was stopped. Did not follow up with ID or have repeat ct after discharge. C/o persistent sore throat for past 2 weeks and had (+) strep test at urgent care, so put back on keflex at that point. C/o severe fatigue for past 2 weeks as well, no abd pain. Has two kids, ages 4 and 8, and they have been healthy. No h/o mono. Got first dose of mtx 6 days ago. Developed rash on top of chest, lesions on face, and areas of purpura on legs. Stopped keflex 2 days ago. Came to ED, CT showed no abscess, started on vanc/aztreonam. Heme consulted for thrombocytopenia. Full ROS performed and neg except as noted above. Some mild dry cough. - Medical History Past Medical History (Chronic Problems): Chronic Problems (Last Updated 04/29/18 @ 07:55 by Rosita Naylor MD) cardiomyopathy (Chronic) GERD (gastroesophageal reflux disease) (Chronic) Obesity (BMI 30.0-34.9) (Chronic) Hypothyroidism (Chronic) Allergies/Adverse Reactions: Allergies amoxicillin Allergy (Verified 04/28/18 13:42) Rash doxycycline Allergy (Verified 04/28/18 13:42) Hives Iodinated Contrast- Oral and IV Dye [CONTRASTS] Allergy (Verified 04/28/18 13:42) Shortness of breath morphine Allergy (Verified 04/28/18 13:42) Swelling oxycodone Allergy (Verified 04/28/18 13:42) Hives Penicillins Allergy (Verified 04/28/18 13:42) Rash cephalexin [From Keflex] Adverse Reaction (Verified 04/28/18 13:42) Rash clindamycin Adverse Reaction (Verified 04/28/18 13:42) Rash codeine Adverse Reaction (Verified 04/28/18 13:42) Nausea Home Medications: Ambulatory Orders Medication Instructions Recorded Duloxetine Hcl [Cymbalta] 30 mg PO BID 03/07/18 Cephalexin [Cephalexin] 500 mg PO Q8H 04/28/18 Folic Acid [Folic Acid] 1 mg PO DAILY 04/28/18 Lisinopril [Lisinopril] 20 mg PO DAILY 04/28/18 Methotrexate [Methotrexate] 8 tab PO SA 04/28/18 Norethindrone [Norethindrone] 1 tab PO DAILY 04/28/18 Secukinumab [Cosentyx Pen] 1 injectable IM QMONTH 04/28/18 - Social History Tobacco Use: non-smoker Vital Signs Temp Pulse Resp BP Pulse Ox 98.5 F 89 16 135/97 H 97 04/29/18 08:00 04/29/18 10:00 04/29/18 08:00 04/29/18 08:00 04/29/18 11:53 Oxygen Delivery Method Room Air Weight: 131.1 kg Body Mass Index (BMI) 48.1 Laboratory Tests Past 24 Hrs 04/29/18 04/29/18 04/29/18 05:40 05:40 08:52 WBC 3.0 L RBC 3.59 L Hgb 10.0 L Hct 31.0 L MCV 86.4 MCH 27.9 MCHC 32.3 RDW 13.3 RDW Differential 42.2 Plt Count 27 L* Immature Gran % (Auto) 0.300 Neut % (Auto) 87.8 H Lymph % (Auto) 5.9 L [place] % (Auto) 5.3 Eos % (Auto) 0.7 Baso % (Auto) 0.0 Absolute Neuts (auto) 2.7 Absolute Lymphs (auto) 0.18 L Total Counted Not Reportable Differential Comment SCANNED Diff Path Review Reviewed Platelet Estimate MKD DEC Sodium 140 Potassium 4.2 Chloride 109 H Carbon Dioxide 24.0 Anion Gap 7 BUN 16 Creatinine 0.91 Estim Creat Clear Calc 74.51 Est GFR (MDRD) Af Amer 90 Est GFR (MDRD) Non-Af 75 BUN/Creatinine Ratio 17.6 Glucose 148 H Calcium 7.9 L IgG IgA IgM IgE Hep C Antibody RIBA Pending Hep C RIBA Interpret Pending Hepatitis C Comment Pending HIV 1&2 Antibody 04/29/18 04/29/18 08:52 08:52 WBC RBC Hgb Hct MCV MCH MCHC RDW RDW Differential Plt Count Immature Gran % (Auto) Neut % (Auto) Lymph % (Auto) [place] % (Auto) Eos % (Auto) Baso % (Auto) Absolute Neuts (auto) Absolute Lymphs (auto) Total Counted Differential Comment Diff Path Review Platelet Estimate Sodium Potassium Chloride Carbon Dioxide Anion Gap BUN Creatinine Estim Creat Clear Calc Est GFR (MDRD) Af Amer Est GFR (MDRD) Non-Af BUN/Creatinine Ratio Glucose Calcium IgG Pending IgA Pending IgM Pending IgE Pending Hep C Antibody RIBA Hep C RIBA Interpret Hepatitis C Comment HIV 1&2 Antibody Non-Reactive - Other Studies Radiology: [] reviewed Other Studies: [] Route of nutrition/ use of supplements: [] Nutritional Intake: [] IV Site: [] [place] Catheter: [] - Physical Exam General: Alert, Oriented x3, Cooperative, No apparent distress HEENT: Atraumatic, PERRLA, EOMI, - - mild posterior pharynx redness Neck: Supple, No Nodes Lungs: Clear to auscultation, Normal air movement Cardiovascular: Regular rate, Regular Rhythm, No murmurs Abdomen: Bowel Sounds Present, Soft, Non Tender, Non-Distended Extremities: No edema Skin: Ulcer/ Wound - on face. Small petechiae on chest. Area of purpura on L ankle. IV Site: Peripheral, without redness Musculoskeletal: No Tenderness to Palpation of Joints or Extremities Neurological: Cranial nerves II-XII grossly intact - Assessment/Plan Antibiotics: [] Assessment/Plan: [] Active and Suspected Problems (Last Updated 04/29/18 @ 07:55 by Rosita Naylor MD) Thrombocytopenia (Acute) Leukopenia due to antineoplastic chemotherapy (Acute) Recent GAS supraclavicular abscess - appears resolved. No tonsil abscess seen on CT. Recent throat cx 04/26 in [facility] finalized as neg except for normal arthur. No evidence of active bacterial infection, will stop vanc and aztreonam. Thrombocytopenia, fatigue, sore throat, and rash - could be consistent with cmv or ebv infection. Will order viral studies. Heme following. Thank you, will follow.
--- NOTE | 2018-04-29 14:00 | CASEMGMT ---
RN MARCO A Face to Face with patient for initial transition planning/care coordination assessment. RN CM introduced self and role at [facility]. Patient lying in bed, alert and oriented. Patient willing to participate in assessment and is able to answer all questions appropriately. Care providers, pharmacy, and demographics verified. See link attached. Patient wishes to discharge home, denies need for home health at this time. Patient states she has no further needs or concerns at this time. CM to follow for discharge planning needs that may arise. Disposition Plan: Patient to discharge home with family support and follow-up plans in place.
[2018-04-29 14:40] LABS: Internal QC Validated? YES +Cl - CLEAR BKGD; Monotest Negative (Negative); Record Kit Lot#, Mono 13171517
[2018-04-30] VITALS (8 sets, daily range): BP systolic 138–164; BP diastolic 96–112; PULSE 90–106; RESP 18–20; TEMP 36.8–37.1; O2SAT 95–98
[2018-04-30] MEDS: 0.9% Normal Saline 1,000 ML 150 ML IV ×2 (01:34→07:48)
--- NOTE | 2018-04-30 07:33 | PN_ITS ---
Patient Problems: Active and Suspected Problems (Last Updated 04/29/18 @ 07:55 by Rosita Naylor MD) Thrombocytopenia (Acute) Leukopenia due to antineoplastic chemotherapy (Acute) Subjective: Patient was seen and examined. Complains of bloody stools with bright red bleeding on her toilet paper but not much. Had an episode where they were close. Has noted intermittent bleeding from her gums while brushing her teeth. Records from [facility] are still pending -order stat. Denies any fever or chills. Complains of pain in her gums. No more having sore throat. Appreciate ID and hematology consults. Objective: Physical exam: General: Alert, Oriented x3, Cooperative, No apparent distress HEENT: Atraumatic, PERRLA, EOMI, Normocephalic Oral: - - throat mildly erythematous; enlarged tonsils visualised. Neck: Supple, No JVD, - - Right side of neck is hirsch than left, and has moderate tenderness on examination of right side of neck Lungs: Clear to auscultation, Normal air movement, No rhonchi Cardiovascular: Regular rate, Regular Rhythm, Normal S1, Normal S2, No murmurs Abdomen: Bowel Sounds Present, Soft, Non Tender, Non-Distended, No Hepato- splenomegaly Extremities: No clubbing, No cyanosis, No edema, Capillary Refill Less than 3 Seconds, No Calf Tenderness Skin: - - resolving scabs over both cheeks. Ecchymotic patch over dorsum of left foot. Petechial rash over upper chest Musculoskeletal: No Tenderness to Palpation of Joints or Extremities Lymphatic: No Cervical, Supraclavicular, or Inguinal Adenopathy Neurological: Cranial nerves II-XII grossly intact, Motor Exam 5/5 strength throughout Psych/Mental Status: Normal Affect, Appropriate, Alert and oriented to time, place, person, mood and affect Vitals/I&O's: Vital Signs Temp Pulse Resp BP Pulse Ox 98.2 F 93 18 147/98 H 95 04/30/18 04:20 04/30/18 04:20 04/30/18 04:20 04/30/18 04:20 04/30/18 04:20 Oxygen Delivery Method Room Air Weight: 131.1 kg Body Mass Index (BMI) 48.1 Intake and Output for Last 24 Hours 04/28/18 04/29/18 04/30/18 23:59 23:59 23:59 Intake Total 4667 / 4667 1157 / 1157 Output Total 1801 / 1801 Balance 2866 / 2866 1157 / 1157 Laboratory Results 04/29/18 05:40: Diff Path Review Reviewed 04/29/18 08:20: CMV IgG Ab Pending, CMV IgM Ab Pending, EBV Capsid Ag IgG Ab Pending, EBV Capsid Ag IgM Ab Pending, EBV Early Antigen IgG Pending, EBV Nuclear Ag IgG Ab Pending, EBV Antibody Interp Pending 04/29/18 08:52: Hep C Antibody RIBA Pending, Hep C RIBA Interpret Pending, Hepatitis C Comment Pending 04/29/18 08:52: HIV 1&2 Antibody Non-Reactive 04/29/18 08:52: IgG Pending, IgA Pending, IgM Pending, IgE Pending 04/29/18 08:52: Monoscreen Negative Current Medications Acetaminophen (Tylenol) 650 mg PO Q6H PRN PRN PRN Reason: PAIN Last Admin: 04/29/18 20:18 Dose: 650 mg Duloxetine HCl (Cymbalta) 30 mg PO BID [facility] Last Admin: 04/29/18 21:58 Dose: 30 mg [facility]) [facility] Last Admin: 04/29/18 08:00 Dose: 1 mg Guaifenesin (Robitussin) 10 ml PO Q8H PRN PRN PRN Reason: COUGH Last Admin: 04/29/18 04:16 Dose: 10 ml Sodium Chloride () 1,000 mls @ 150 mls/hr IV .Q6H40M [facility] Last Admin: 04/30/18 01:34 Dose: 150 mls/hr Lisinopril (Zestril) 20 mg PO DAILY [facility] Last Admin: 04/29/18 08:03 Dose: 20 mg Magnesium Hydroxide (Milk Of Magnesia) 30 ml PO DAILY PRN PRN PRN Reason: Constipation Nutritional Formula (Lactose Free) (Ensure Enlive) 120 ml PO 4X/DAY [facility] Last Admin: 04/29/18 21:57 Dose: 120 ml Nystatin (Mycostatin Powder) 1 applic TOPICAL BID [facility] PRN Reason: Protocol Last Admin: 04/29/18 21:57 Dose: Not Given Prednisone () [facility] Last Admin: 04/29/18 08:00 Dose: 10 mg Sodium Chloride () 5 - 30 ml IV UD PRN PRN Reason: SALINE FLUSH Medical Necessity - Tobacco Use Smoking Status: Never smoker Tobacco Use: Non-smoker Assessment/Plan All Active Problems (Last Updated 04/29/18 @ 07:55 by Rosita Naylor MD) Thrombocytopenia (Acute) Leukopenia due to antineoplastic chemotherapy (Acute) Acute systolic CHF (congestive heart failure) (Resolved) 33 year old F with PMHx of rheumatoid arthritis, psoriatic arthritis, on chronic prednisone 10 mg p.o. daily, cardiomyopathy, thrombocytopenia of unclear etiology, recently seen in the ED in February 2018 with thrombocytopenia and left upper chest mass and transferred to [facility]. 1. Acute Pharyngitis, throat cultures have been negative, h/o streptococcal pharyngitis, h/o amoxicillin allergy, CT of the neck was negative for tonsillar hypertrophy or abscess, off antibiotics, will monitor symptomatically 2. Acute on chronic thrombocytopenia, pancytopenia, unclear etiology for now, patient has apparently been thrombocytopenic for some months now, records from [facility] are pending, repeat platelet count is unchanged from yesterday. Discussed with Dr. Madrid, will get PT/INR, PTT, fibrinogen, ultrasound of the liver and spleen, follow-up on records from [facility], holding off on any aspirin or heparin products. 3. Scabbed lesions on her face, unclear etiology, suspect this is progression from facial impetigo, off antibiotics, advised patient on topical hygiene and washing of the face and avoiding scratching the lesions. 4. History of cardiomyopathy 5. Hypertension, BP has been uncontrolled, on lisinopril, will monitor and make changes to medication if blood pressure remains uncontrolled. 6. RA/Psoriatic arthritic, on Cosentyx, methotrexate and prednisone, would continue on prednisone and hold methotrexate and Cosentyx 7. Morbid obesity, BMI 48.2, diet and exercise. 8. DVT prophylaxis with SCDs Code Visit Inpatient E&M: 88356 Subs Hosp L3
[2018-04-30] MEDS: predniSONE 10 MG Tablet PO (07:47)
[2018-04-30] MEDS: Folic Acid 1 MG Tablet PO (07:48)
[2018-04-30] MEDS: Lisinopril 20 MG Tablet PO (07:48)
[2018-04-30] MEDS: DULoxetine Hcl 30 MG Capsule PO ×2 (07:48→21:21)
[2018-04-30 08:15] LABS: Absolute Lymphocyte Count 0.21 X10^3/ul (0.83-4.51); Absolute Neutrophil Count 2.2 X10^3/uL (2.0-7.7); Basophil# 0.01 X10^3/uL; Basophil% 0.4 % (0-1); Eosinophil# 0.04 X10^3/uL; Eosinophils% 1.5 % (0-5); Hematocrit 32.2 % (37-47); Hemoglobin 10.6 g/dl (12.0-15.0); Lymphocyte # 0.21 X10^3/ul (4.0); Lymphocyte % 7.7 % (19-41); Mean Corp Hgb Conc 32.9 g/gl (32-36); Mean Corpuscular Hgb 28.3 pg (27.0-32.0); Mean Corpuscular Volume 86.1 fL (81-99); Monocyte% 7.4 % (0-10); Neutrophil # 2.24 X10^3/uL (2.7-7.7); Neutrophil % 82.3 % (47-70); RBC Distribution Width CV 13.3 % (11.6-14.6); RBC Distribution Width SD 42.6 fl (35.1-43.9); Red Blood Count 3.74 M/mm3 (4.2-5.4); White Blood Count 2.7 K/mm3 (4.4-11.0)
[2018-04-30 08:17] LABS: Differential Indicated SCAN CRITERIA MET; POSITIVE COUNT YES; POSITIVE DIFFERENTIAL YES; POSITIVE MORPHOLOGY YES; Platelet Count 29 K/mm3 (150-450)
[2018-04-30 08:26] LABS: Anion Gap 9 (5-15); BUN 13 mg/dL (7-18); BUN/Creat Ratio 19.2 RATIO (10-20); Calcium,Total 8.3 mg/dL (8.5-10.1); Chloride 112 mmol/L (98-107); Creatinine, Serum 0.68 mg/dL (0.55-1.02); EST Glomerular Filtration Rate 105 mL/min (>60); Est Glom Filt Rate - Afr Amer 127 mL/min (>60); Estimated Creatinine Clearance 99.71 ml/min; Glucose 110 mg/dL (74-106); Potassium 3.6 mmol/L (3.5-5.1); Sodium Level 145 mmol/L (136-145)
[2018-04-30 08:49] LABS: Differential Comment SCANNED; Platelet Estimate MOD DEC (ADEQ); Platelet Morphology LARGE
--- NOTE | 2018-04-30 10:35 | US_ITS ---
STUDY: ABDOMINAL ULTRASOUND REASON FOR EXAM: Female, 33 years old. Thrombocytopenia TECHNIQUE: Transverse and longitudinal imaging of the abdomen was obtained using real-time ultrasound. COMPARISON: None. FINDINGS: Liver: The liver measures at least 20 cm. There is increased echogenicity of the liver. The direction of portal flow is hepatopetal. There is no demonstrated mass in the liver. Portal vein measurement: Gallbladder: The patient has had prior cholecystectomy. Common Bile Duct (C.B.D.): The common bile duct measures 7.7 mm. Pancreas: The visualized pancreas is within normal limits. There is no demonstrated mass in the pancreas. Right Kidney: The right kidney measures 13.7 cm. The right cortex measures 2.1 cm. There is no demonstrated renal mass. There is no dilatation of the collecting system. Left Kidney: The left kidney measures 13.7 cm. The left cortex measures 1.6 cm. There is no demonstrated renal mass. There is no dilatation of the collecting system. Spleen: The spleen measures 12-13 cm. Aorta: The visualized aorta is normal in appearance. I.V.C.: The IVC is patent. There is no demonstrated free fluid in the abdomen. US/Abdomen Complete IMPRESSION: The liver is enlarged with increased echogenicity which can be seen with fatty infiltration. The spleen is prominent measuring 12 to 13 cm. Electronically Signed: Emmanuelle Mckinley MD at 1:03 EDT Tel Direct: [phone], Service support ,
[2018-04-30] MEDS: Acetaminophen 325 MG Tablet 650 MG PO ×2 (10:55→21:20)
[2018-04-30 11:07] LABS: Prothrombin Time (Protime)PT. 12.9 SECONDS (11.7-14.9)
[2018-04-30 11:08] LABS: Partial Thromboplast Time 28.5 Seconds (24.1-36.2)
[2018-04-30 11:16] LABS: Fibrinogen 451 mg/dl (203-444)
--- NOTE | 2018-04-30 11:26 | PCA ---
obtained consent from patient for release of medical records, release of medical records faxed over to [facility] at fax number [phone]
[2018-04-30 12:13] LABS: Hepatitis C Ab <0.1 s/co ratio (0.0-0.9)
[2018-04-30 15:14] LABS: CMV Acute Antibody IgM 38.4 AU/mL (0.0-29.9); CMV Antibody IgG > 10.00 U/mL (0.00-0.59); EBV Acute VCA IgM < 36.0 U/mL (0.0-35.9); EBV Early Antigen IgG 91.6 U/mL (0.0-8.9); EBV-VCA IgG > 600.0 U/mL (0.0-17.9)
[2018-05-01] VITALS (9 sets, daily range): BP systolic 133–159; BP diastolic 70–116; PULSE 96–112; RESP 18; TEMP 36.6–37.1; O2SAT 93–98
[2018-05-01] MEDS: traMADol 50 MG Tablet PO ×3 (01:07→17:49)
--- NOTE | 2018-05-01 07:32 | PCM.PN.HOSP ---
Patient Problems: Active and Suspected Problems (Last Updated 04/29/18 @ 07:55 by Rosita Naylor MD) Thrombocytopenia (Acute) Leukopenia due to antineoplastic chemotherapy (Acute) Subjective: Patient was seen and examined. Denies any new complaints. Feels frustrated. Been picking at the lesions on her face. This is minimal bleeding per rectum. Has constipation. Denies fever or chills or shortness of breath or chest pain. Objective: Physical exam: General: Alert, Oriented x3, Cooperative, No apparent distress HEENT: Atraumatic, PERRLA, EOMI, Normocephalic Oral: - - throat mildly erythematous; enlarged tonsils visualised. Neck: Supple, No JVD, - - Right side of neck is hirsch than left, and has moderate tenderness on examination of right side of neck Lungs: Clear to auscultation, Normal air movement, No rhonchi Cardiovascular: Regular rate, Regular Rhythm, Normal S1, Normal S2, No murmurs Abdomen: Bowel Sounds Present, Soft, Non Tender, Non-Distended, No Hepato-splenomegaly Extremities: No clubbing, No cyanosis, No edema, Capillary Refill Less than 3 Seconds, No Calf Tenderness Skin: - - resolving scabs over both cheeks. Ecchymotic patch over dorsum of left foot. Petechial rash over upper chest Musculoskeletal: No Tenderness to Palpation of Joints or Extremities Lymphatic: No Cervical, Supraclavicular, or Inguinal Adenopathy Neurological: Cranial nerves II-XII grossly intact, Motor Exam 5/5 strength throughout Psych/Mental Status: Normal Affect, Appropriate, Alert and oriented to time, place, person, mood and affect Vitals/I&O's: Vital Signs Temp Pulse Resp BP Pulse Ox 98.4 F 102 H 18 159/116 H 96 05/01/18 05:44 05/01/18 05:44 05/01/18 05:44 05/01/18 05:44 05/01/18 05:44 Oxygen Delivery Method Room Air Weight: 131.1 kg Body Mass Index (BMI) 48.1 Intake and Output for Last 24 Hours 04/29/18 04/30/18 05/01/18 23:59 23:59 23:59 Intake Total 4667 / 4667 2260 / 2260 200 / 200 Output Total 1801 / 1801 Balance 2866 / 2866 2260 / 2260 200 / 200 Laboratory Results 04/29/18 08:20: CMV IgG Ab > 10.00 H, CMV IgM Ab 38.4 H, EBV Capsid Ag IgG Ab > 600.0 H, EBV Capsid Ag IgM Ab < 36.0, EBV Early Antigen IgG 91.6 H, EBV Nuclear Ag IgG Ab 256.0 H, EBV Antibody Interp Comment 04/30/18 07:55: WBC 2.7 L, RBC 3.74 L, Hgb 10.6 L, Hct 32.2 L, MCV 86.1, MCH 28.3, MCHC 32.9, RDW 13.3, RDW Differential 42.6, Plt Count 29 L*, Immature Gran % (Auto) 0.700, Neut % (Auto) 82.3 H, Lymph % (Auto) 7.7 L, [place] % (Auto) 7.4, Eos % (Auto) 1.5, Baso % (Auto) 0.4, Absolute Neuts (auto) 2.2, Absolute Lymphs (auto) 0.21 L, Total Counted Not Reportable, Differential Comment SCANNED, Diff Path Review May foll, Platelet Estimate MOD DEC, Plt Morphology Comment LARGE 04/30/18 07:55: Sodium 145, Potassium 3.6, Chloride 112 H, Carbon Dioxide 24.0, Anion Gap 9, BUN 13, Creatinine 0.68, Estim Creat Clear Calc 99.71, Est GFR (MDRD) Af Amer 127, Est GFR (MDRD) Non-Af 105, BUN/Creatinine Ratio 19.2, Glucose 110 H, Calcium 8.3 L 04/30/18 10:50: PT 12.9, INR 1.0, APTT 28.5, Fibrinogen 451 H Current Medications Acetaminophen (Tylenol) 650 mg PO Q6H PRN PRN PRN Reason: PAIN Last Admin: 04/30/18 21:20 Dose: 650 mg Duloxetine HCl (Cymbalta) 30 mg PO BID [facility] Last Admin: 04/30/18 21:21 Dose: 30 mg Folic Acid (Folic Acid) 1 mg PO DAILYCM [facility] Last Admin: 04/30/18 07:48 Dose: 1 mg Guaifenesin (Robitussin) 10 ml PO Q8H PRN PRN PRN Reason: COUGH Last Admin: 04/29/18 04:16 Dose: 10 ml Lisinopril (Zestril) 20 mg PO DAILY [facility] Last Admin: 04/30/18 07:48 Dose: 20 mg Magnesium Hydroxide (Milk Of Magnesia) 30 ml PO DAILY PRN PRN PRN Reason: Constipation Nutritional Formula (Lactose Free) (Ensure Enlive) 120 ml PO 4X/DAY [facility] Last Admin: 04/30/18 21:20 Dose: 120 ml Nystatin (Mycostatin Powder) 1 applic TOPICAL BID NATHANIEL PRN Reason: Protocol Last Admin: 04/30/18 21:15 Dose: Not Given Prednisone () 10 mg PO DAILYCM [facility] Last Admin: 04/30/18 07:47 Dose: 10 mg Sodium Chloride () 5 - 30 ml IV UD PRN PRN Reason: SALINE FLUSH Tramadol HCl (Ultram) 50 mg PO Q6H PRN PRN PRN Reason: MODERATE PAIN (4-5/10) Last Admin: 05/01/18 01:07 Dose: 50 mg Medical Necessity - Tobacco Use Smoking Status: Never smoker Tobacco Use: Non-smoker Assessment/Plan All Active Problems (Last Updated 04/29/18 @ 07:55 by Rosita Naylor MD) Thrombocytopenia (Acute) Leukopenia due to antineoplastic chemotherapy (Acute) Acute systolic CHF (congestive heart failure) (Resolved) 33 year old F with PMHx of rheumatoid arthritis, psoriatic arthritis, on chronic prednisone 10 mg p.o. daily, cardiomyopathy, thrombocytopenia of unclear etiology, recently seen in the ED in February 2018 with thrombocytopenia and left upper chest mass and transferred to [facility]. 1. Acute Pharyngitis, throat cultures have been negative, h/o streptococcal pharyngitis, h/o amoxicillin allergy, CT of the neck was negative for tonsillar hypertrophy or abscess, off antibiotics, will monitor symptomatically 2. Acute on chronic thrombocytopenia, pancytopenia, unclear etiology for now, patient has apparently been thrombocytopenic for some months now, records from [facility] are pending, repeat platelet count is unchanged, ultrasound of the liver shows mild hepatomegaly and hypersplenism, PT INR PTT were normal, fibrinogen slightly elevated. Hematology consulted and thinks the cause is multifactorial, likely due to medications such as methotrexate, consented and possibly Cymbalta, as well as newly started antibiotics. Off these medications, will follow up with hematology in the outpatient 3. Scabbed lesions on her face, unclear etiology, suspect this is progression from previousfacial impetigo, off antibiotics, advised patient on topical hygiene and washing of the face and avoiding scratching the lesions. Patient will need to follow-up with dermatology on discharge 5. Positive EBV/CMV viral infection from extensive investigation, discussed with infectious disease, will monitor symptomatically 6. History of cardiomyopathy 7. Hypertension, BP has been uncontrolled, on lisinopril, will monitor and make changes to medication if blood pressure remains uncontrolled. 8. RA/Psoriatic arthritic, on Cosentyx, methotrexate and prednisone, would continue on prednisone and hold methotrexate and Cosentyx 9. Morbid obesity, BMI 48.2, diet and exercise. 10. DVT prophylaxis with SCDs Code Visit Inpatient E&M: 56281 Subs Hosp L2
[2018-05-01] MEDS: predniSONE 10 MG Tablet PO (08:14)
[2018-05-01] MEDS: Folic Acid 1 MG Tablet PO (08:14)
[2018-05-01 09:38] LABS: Basophil# 0.01 X10^3/uL; Basophil% 0.3 % (0-1); Eosinophil# 0.03 X10^3/uL; Eosinophils% 0.9 % (0-5); Hematocrit 31.6 % (37-47); Hemoglobin 10.4 g/dl (12.0-15.0); Lymphocyte % 5.8 % (19-41); Mean Corp Hgb Conc 32.9 g/gl (32-36); Mean Corpuscular Hgb 28.2 pg (27.0-32.0); Mean Corpuscular Volume 85.6 fL (81-99); Monocyte% 5.8 % (0-10); Neutrophil # 2.98 X10^3/uL (2.7-7.7); Neutrophil % 87.2 % (47-70); RBC Distribution Width CV 13.3 % (11.6-14.6); RBC Distribution Width SD 41.9 fl (35.1-43.9); Red Blood Count 3.69 M/mm3 (4.2-5.4); White Blood Count 3.4 K/mm3 (4.4-11.0)
[2018-05-01] MEDS: DULoxetine Hcl 30 MG Capsule PO (09:38)
[2018-05-01] MEDS: Nystatin Powder 15gm Bottle 1 APPLIC TOPICAL (09:38)
[2018-05-01] MEDS: Lisinopril 20 MG Tablet PO (09:38)
[2018-05-01 09:39] LABS: Differential Indicated SCAN CRITERIA MET; POSITIVE COUNT YES; POSITIVE DIFFERENTIAL YES; POSITIVE MORPHOLOGY YES; Platelet Count 31 K/mm3 (150-450)
[2018-05-01 09:47] LABS: Differential Comment SCANNED; Platelet Estimate MOD DEC (ADEQ); Platelet Morphology LARGE
--- NOTE | 2018-05-01 10:12 | PN_ITS ---
Patient Problems: Active and Suspected Problems (Last Updated 04/29/18 @ 07:55 by Rosita Naylor MD) Thrombocytopenia (Acute) Leukopenia due to antineoplastic chemotherapy (Acute) Subjective: No fever. Some blood on toilet paper with some BMs. Not all. Bowels slower and stools harder. No abdominal pain. No other unusual bleeding. Occasional petechial rash ankles in last few months. Lesions on face present for several weeks. - Physical Exam General: Alert Oral: Moist Mucosa Neck: Supple Lungs: Clear to auscultation Cardiovascular: Regular Rhythm Abdomen: Soft, Non Tender Extremities: No edema Skin: - - Dried abrasion type lesions left and right cheeks. Vital Signs Temp Pulse Resp BP Pulse Ox 98.4 F 102 H 18 159/116 H 93 05/01/18 05:44 05/01/18 05:44 05/01/18 05:44 05/01/18 05:44 05/01/18 07:40 Oxygen Delivery Method Room Air Weight: 131.1 kg Body Mass Index (BMI) 48.1 Intake and Output for Last 24 Hours 04/29/18 04/30/18 05/01/18 23:59 23:59 23:59 Intake Total 4667 / 4667 2260 / 2260 200 / 200 Output Total 1801 / 1801 Balance 2866 / 2866 2260 / 2260 200 / 200 Laboratory Tests Past 24 Hrs 04/29/18 04/30/18 05/01/18 08:20 10:50 07:50 WBC Cancelled Corrected WBC Cancelled RBC Cancelled Hgb Cancelled Hct Cancelled MCV Cancelled MCH Cancelled MCHC Cancelled RDW Cancelled RDW Differential Cancelled Plt Count Cancelled MPV Cancelled Immature Gran % (Auto) Cancelled Neut % (Auto) Cancelled Lymph % (Auto) Cancelled [place] % (Auto) Cancelled Eos % (Auto) Cancelled Baso % (Auto) Cancelled Immature Gran # (Auto) Cancelled Absolute Neuts (auto) Cancelled Absolute Lymphs (auto) Cancelled Absolute Monos (auto) Cancelled Total Counted Cancelled Neutrophils % (Manual) Cancelled Band Neutrophils % Cancelled Lymphocytes % (Manual) Cancelled Monocytes % (Manual) Cancelled Eosinophils % (Manual) Cancelled Basophils % (Manual) Cancelled Metamyelocytes % Cancelled Myelocytes % Cancelled Promyelocytes % Cancelled Blast Cells % Cancelled Plasma Cell % (Manual) Cancelled Other Cells % Cancelled Lymphocytes # Cancelled Nucleated RBCs/100 WBC Cancelled Differential Comment Cancelled Diff Path Review Cancelled Hypersegmented Neuts Cancelled Atypical Lymphocytes Cancelled Reactive Lymphocytes Cancelled Smudge Cells Cancelled Eosinophilia # Cancelled Basophilia # Cancelled Toxic Granulation Cancelled Dohle Bodies Cancelled Saad Rods Cancelled Platelet Estimate Cancelled Plt Morphology Comment Cancelled RBC Morphology Cancelled Polychromasia Cancelled Hypochromasia Cancelled Poikilocytosis Cancelled Basophilic Stippling Cancelled Anisocytosis Cancelled Microcytosis Cancelled Macrocytosis Cancelled Spherocytes Cancelled Sickle Cells Cancelled Target Cells Cancelled Tear Drop Cells Cancelled Ovalocytes Cancelled Stomatocytes Cancelled Ambriz-[place] Bodies Cancelled [place] Cells Cancelled Bite Cells Cancelled Acanthocytes (Spur) Cancelled Rouleaux Cancelled Schistocytes Cancelled PT 12.9 INR 1.0 APTT 28.5 Fibrinogen 451 H CMV IgG Ab > 10.00 H CMV IgM Ab 38.4 H EBV Capsid Ag IgG Ab > 600.0 H EBV Capsid Ag IgM Ab < 36.0 EBV Early Antigen IgG 91.6 H EBV Nuclear Ag IgG Ab 256.0 H EBV Antibody Interp Comment 05/01/18 09:15 WBC 3.4 L Corrected WBC RBC 3.69 L Hgb 10.4 L Hct 31.6 L MCV 85.6 MCH 28.2 MCHC 32.9 RDW 13.3 RDW Differential 41.9 Plt Count 31 L* MPV Immature Gran % (Auto) 0.000 Neut % (Auto) 87.2 H Lymph % (Auto) 5.8 L [place] % (Auto) 5.8 Eos % (Auto) 0.9 Baso % (Auto) 0.3 Immature Gran # (Auto) Absolute Neuts (auto) 3.0 Absolute Lymphs (auto) 0.20 L Absolute Monos (auto) Total Counted Not Reportable Neutrophils % (Manual) Band Neutrophils % Lymphocytes % (Manual) Monocytes % (Manual) Eosinophils % (Manual) Basophils % (Manual) Metamyelocytes % Myelocytes % Promyelocytes % Blast Cells % Plasma Cell % (Manual) Other Cells % Lymphocytes # Nucleated RBCs/100 WBC Differential Comment SCANNED Diff Path Review May foll Hypersegmented Neuts Atypical Lymphocytes Reactive Lymphocytes Smudge Cells Eosinophilia # Basophilia # Toxic Granulation Dohle Bodies Saad Rods Platelet Estimate MOD DEC Plt Morphology Comment LARGE RBC Morphology Polychromasia Hypochromasia Poikilocytosis Basophilic Stippling Anisocytosis Microcytosis Macrocytosis Spherocytes Sickle Cells Target Cells Tear Drop Cells Ovalocytes Stomatocytes Ambriz-[place] Bodies [place] Cells Bite Cells Acanthocytes (Spur) Rouleaux Schistocytes PT INR APTT Fibrinogen CMV IgG Ab CMV IgM Ab EBV Capsid Ag IgG Ab EBV Capsid Ag IgM Ab EBV Early Antigen IgG EBV Nuclear Ag IgG Ab EBV Antibody Interp Medical Necessity - Tobacco Use Smoking Status: Never smoker Tobacco Use: Non-smoker Assessment/Plan All Active Problems (Last Updated 04/29/18 @ 07:55 by Rosita Naylor MD) Thrombocytopenia (Acute) Leukopenia due to antineoplastic chemotherapy (Acute) Acute systolic CHF (congestive heart failure) (Resolved) 1) Thrombocytopenia. Assessment: -Patient has ~5 yr h/o RA/psoriatic arthritis and had been on Humira which was stopped ~6 months ago due to inefficacy. Has been on Cosentyx last 6 months. Was prescribed MTX, but didn't take it. -Acute supraclavicular abscess in February that required I&D. -Abrupt drop in platelet count following. -Etiology of low platelets multifactorial including mild hypersplenism from fatty liver, underlying autoimmune disease and recent acute infectious process. -No evidence lupus anticoagulant or DIC. -Suspect platelet recovery over next few weeks. -Duloxetine will increase bleeding risk due to platelet inhibitory mechanism, but she's not having significant bleed only occasional/frequent blood when wiping. Plan: -Monitor for now. -Consider derm consultation for facial lesions. -Appreciate ID input--she has severe lymphopenia increasing risk of atypical infections.
--- NOTE | 2018-05-01 11:42 | PCM.DC ---
- Discharge Diagnoses Current Active Problems: Current Active and Chronic Problems (Last Updated 04/29/18 @ 07:55 by Rosita Naylor MD) Thrombocytopenia (Acute) Leukopenia due to antineoplastic chemotherapy (Acute) Reason(s) for Visit for Discharge Instructions: Sore throat, facial lesions, fever, low platelets You will use the following diet at home:: Cardiac Your food should be the consistency of: Regular Your liquids should be the consistency of: Regular/Thin Discharge Activity: Return to Normal Activity Additional Instructions: You have been given a list of primary care doctors to choose from. Follow-up with your primary care doctor for results of your blood cultures. Your throat culture was negative. No more fevers were seen in the hospital. Infectious disease and Hematology teams were consulted and do not recommend antibiotics. Hematology thinks your platelets will slowly come up. You need to follow-up closely with Dr. Madrid. You will need to see a inclusion manager for your facial lesions within 1 week. Some changes were made to your medications. Follow-up with your back sewer on that. Allergies/Adverse Reactions: Allergies amoxicillin Allergy (Verified 04/28/18 13:42) Rash doxycycline Allergy (Verified 04/28/18 13:42) Hives Iodinated Contrast- Oral and IV Dye [CONTRASTS] Allergy (Verified 04/28/18 13:42) Shortness of breath morphine Allergy (Verified 04/28/18 13:42) Swelling oxycodone Allergy (Verified 04/28/18 13:42) Hives Penicillins Allergy (Verified 04/28/18 13:42) Rash cephalexin [From Keflex] Adverse Reaction (Verified 04/28/18 13:42) Rash clindamycin Adverse Reaction (Verified 04/28/18 13:42) Rash codeine Adverse Reaction (Verified 04/28/18 13:42) Nausea Medications to take at Discharge Folic Acid 1 mg PO DAILY 04/28/18 Lisinopril 20 mg PO DAILY 04/28/18 Primary Care Physician: Care Physician,No Primary [Primary Care Provider] - Please follow up with your Primary Care Physician in: in 1 week Test Results: Test results from this visit will be discussed in further detail at your follow-up appointment, if applicable. Please Follow Up With: Jacky Madrid DO When: in 1 week, call for appointment When: Capture Manager in [place] in 1 week Proposed Discharge Date: 05/01/18
--- NOTE | 2018-05-01 11:51 | DS.PCM_ITS ---
Discharge Date and Diagnosis - Problem List Patient Problems: Active and Suspected Problems (Last Updated 04/29/18 @ 07:55 by Rosita Naylor MD) Thrombocytopenia (Acute) Leukopenia due to antineoplastic chemotherapy (Acute) Date of Admission: 04/28/18 Date of Discharge: 05/01/18 - Primary Discharge Diagnosis Active and Suspected Problems (Last Updated 04/29/18 @ 07:55 by Rosita Naylor MD) Thrombocytopenia (Acute) Leukopenia (Acute) Facial lesions Pharyngitis - Secondary Discharge Diagnosis Chronic Problems (Last Updated 04/29/18 @ 07:55 by Rosita Naylor MD) cardiomyopathy (Chronic) GERD (gastroesophageal reflux disease) (Chronic) Obesity (BMI 30.0-34.9) (Chronic) Hypothyroidism (Chronic) Hospital Course and Treatment Imaging Results: Clinical Impression(s) from Imaging Studies Soft Tissue Neck CT 04/28/18 15:50 IMPRESSION: Normal unenhanced CT examination of the soft tissues of the neck. Previously noted supraclavicular mass on the left appears to have resolved. No evidence of significant tonsillar hypertrophy or peritonsillar abscess although sensitivity is limited without IV contrast. Electronically Signed: Soto Phipps MD at 18:47 EDT , Service support , Abdomen Ultrasound 04/30/18 10:35 IMPRESSION: The liver is enlarged with increased echogenicity which can be seen with fatty infiltration. The spleen is prominent measuring 12 to 13 cm. Electronically Signed: Emmanuelle Mckinley MD at 1:03 EDT Tel Direct: [phone], Service support , Hematology, infectious disease Operations: None Procedures: None Summary of Care Provided: 33 year old F with PMHx of rheumatoid arthritis, psoriatic arthritis, on methotrexate, Cosentyx, chronic prednisone 10 mg p.o. daily, cardiomyopathy, thrombocytopenia of unclear etiology, recently seen in the ED in February 2018 with thrombocytopenia and left upper chest mass and transferred to [facility]. 1. Acute Pharyngitis, throat cultures have been negative, h/o streptococcal pharyngitis, h/o amoxicillin allergy, history of recent left supraclavicular abscess status post drainage in [facility], cultures showed streptococcus pyogenes. Repeat CT of the neck was negative for tonsillar hypertrophy or abscess, off antibiotics. Patient was managed conservatively. 2. Acute on chronic thrombocytopenia, pancytopenia, likely multifactorial in etiology, patient has apparently been thrombocytopenic for some months now, records from [facility] showed improving platelet counts at the discharge in February 2018. Ultrasound of the liver shows mild hepatomegaly and hypersplenism, PT/INR PTT were normal, fibrinogen slightly elevated. Hematology consulted and thinks the cause is multifactorial, likely due to medications such as methotrexate, consented and possibly Cymbalta, as well as newly started antibiotics. Off these medications, will follow up with hematology in the outpatient 3. Scabbed lesions on her face, unclear etiology, suspect this is progression from previous facial impetigo, off antibiotics, advised patient on topical hygiene and washing of the face and avoiding scratching the lesions. Patient will need to follow-up with dermatology on discharge -list given to patient 4. Positive EBV/CMV viral infection from extensive investigation, discussed with infectious disease, unclear if this is playing a part in thrombocytopenia, managed conservatively. 5. History of cardiomyopathy 6. Hypertension, on lisinopril 7. RA/Psoriatic arthritic, was on Cosentyx, methotrexate and prednisone, would continue on prednisone and hold methotrexate and Cosentyx 8. Morbid obesity, BMI 48.2, diet and exercise recommended Discharge Activity: Return to Normal Activity Home Medications: Medications to take at Discharge Folic Acid 1 mg PO DAILY 04/28/18 Lisinopril 20 mg PO DAILY 04/28/18 Docusate Sodium [Colace] 100 mg PO BID #30 cap 05/01/18 Following Prescrptions Were Given to Patient: Docusate Sodium [Colace] 100 mg PO BID #30 cap Primary Care Physician: Care Physician,No Primary [Primary Care Provider] - Please follow up with your Primary Care Physician in: in 1 week Please Follow Up With: Jacky Madrid DO When: in 1 week, call for appointment When: Brazing Machine Feeder in [place] in 1 week Medical Necessity - Tobacco Use Smoking Status: Never smoker Tobacco Use: Non-smoker Meaningful Use Info Meaningful Use Diagnoses (Choose all that apply): None applicable Code Visit Inpatient E&M: 13845 Disch Hosp
--- NOTE | 2018-05-01 11:51 | DCINST_ITS ---
- Discharge Diagnoses Current Active Problems: Current Active and Chronic Problems (Last Updated 04/29/18 @ 07:55 by Rosita Naylor MD) Thrombocytopenia (Acute) Leukopenia due to antineoplastic chemotherapy (Acute) Reason(s) for Visit for Discharge Instructions: Sore throat, facial lesions, fever, low platelets You will use the following diet at home:: Cardiac Your food should be the consistency of: Regular Your liquids should be the consistency of: Regular/Thin Discharge Activity: Return to Normal Activity Additional Instructions: You have been given a list of primary care doctors to choose from. Follow-up with your primary care doctor for results of your blood cultures. Your throat culture was negative. No more fevers were seen in the hospital. Infectious disease and Hematology teams were consulted and do not recommend antibiotics. Hematology thinks your platelets will slowly come up. You need to follow-up closely with Dr. Madrid. You will need to see a manager pharmacy for your facial lesions within 1 week. Some changes were made to your medications. Follow-up with your fur comber on that. Allergies/Adverse Reactions: Allergies amoxicillin Allergy (Verified 04/28/18 13:42) Rash doxycycline Allergy (Verified 04/28/18 13:42) Hives Iodinated Contrast- Oral and IV Dye [CONTRASTS] Allergy (Verified 04/28/18 13:42 ) Shortness of breath morphine Allergy (Verified 04/28/18 13:42) Swelling oxycodone Allergy (Verified 04/28/18 13:42) Hives Penicillins Allergy (Verified 04/28/18 13:42) Rash cephalexin [From Keflex] Adverse Reaction (Verified 04/28/18 13:42) Rash clindamycin Adverse Reaction (Verified 04/28/18 13:42) Rash codeine Adverse Reaction (Verified 04/28/18 13:42) Nausea Medications to take at Discharge Folic Acid 1 mg PO DAILY 04/28/18 Lisinopril 20 mg PO DAILY 04/28/18 Primary Care Physician: Care Physician,No Primary [Primary Care Provider] - Please follow up with your Primary Care Physician in: in 1 week Test Results: Test results from this visit will be discussed in further detail at your follow- up appointment, if applicable. Please Follow Up With: Jacky Madrid DO When: in 1 week, call for appointment When: Verification Clerk in [place] in 1 week Proposed Discharge Date: 05/01/18
[2018-05-01] MEDS: amLODIPine 2.5 MG Tablet PO (12:11)
[2018-05-01] MEDS: LORazepam 1 MG Tablet PO (12:38)
[2018-05-01] MEDS: Docusate Sodium 100 MG Capsule PO (12:38)
[2018-05-01] MEDS: Acetaminophen 325 MG Tablet 650 MG PO (14:56)
[2018-05-01] MEDS: Ibuprofen 400 MG Tablet PO (15:31)
--- NOTE | 2018-05-02 15:56 | CASEMGMT ---
VAHID STRICKLAND Discharge Follow-up Phone Call: GRISELDADee: Angelia Strata: 4 Call Date: 05/02/18 Discharge Date: 05/01/18 Time of Call: 1555 Duration: 3 min Admitting Diagnosis: Thrombocytopenia, Sore Throat VAHID STRICKLAND completed follow-up phone call after recent hospitalization. Patient states that she is doing about the same. Patient concerned that doctor discontinued most of her home medications. VAHID STRICKLAND advised patient to follow-up with her PCP and plastics repairer regarding home medications. Patient states that she is scheduling follow-up appts.
[2018-05-03 09:40] LABS: Pathologist Review Reviewed
[2018-05-03 09:43] LABS: Pathologist Review Reviewed
[2018-05-04 12:09] LABS: Immunoglobulin A 412 mg/dL (87-352); Immunoglobulin G 1435 mg/dL (700-1600); Immunoglobulin M 64 mg/dL (26-217)
[2018-05-05 09:42] LABS: Immunoglobulin E 75 IU/mL (0-100)
== END 2018-05-01 18:38 | disposition home or self-care (01) | DRG 152 ==
LOC: ED 15:51 → MS3 19:46
PROVIDERS: Internal Medicine Hematology & Oncology; Internal Medicine Infectious Disease; Student in an Organized Health Care Education/Training Program; Admitting Provider Internal Medicine; Emergency Provider Emergency Medicine; Visit Provider Internal Medicine
DX: J02.9 Acute pharyngitis, unspecified (principal); O90.3 Peripartum cardiomyopathy; Z68.42 Body mass index [BMI] 45.0-49.9, adult; D61.818 Other pancytopenia; D69.59 Other secondary thrombocytopenia; M06.9 Rheumatoid arthritis, unspecified; E66.01 Morbid (severe) obesity due to excess calories; L40.50 Arthropathic psoriasis, unspecified; K21.9 Gastro-esophageal reflux disease without esophagitis; E03.9 Hypothyroidism, unspecified; Z79.899 Other long term (current) drug therapy; L01.00 Impetigo, unspecified; I10 Essential (primary) hypertension; T45.1X5A Adverse effect of antineoplastic and immunosuppressive drugs, initial encounter; D73.1 Hypersplenism
CPT/HCPCS: 36415; 70490; 76700; 80048; 80053; 82784; 82785; 83605; 85025; 85384; 85610; 85730; 86308; 86644; 86645; 86663; 86664; 86665; 86703; 86803; 86804; 87040; 87070; 87641; 97802; 99284; J7030; J7040; A4216

== ENCOUNTER → 2018-06-30 15:01 | Outpatient (CLI) | payer OTHER, SELFPAY ==
--- NOTE | 2018-06-30 15:05 | US_ITS ---
STUDY: Soft tissue neck ULTRASOUND REASON FOR EXAM: Female, 33 years old. Neck pain midline into the right TECHNIQUE: Ultrasonography of the region of clinical abnormality was performed. COMPARISON: CT neck 04/28/2018 FINDINGS: The regional lymph nodes are normal. The thyroid isthmus appears prominent, measuring up to 10 mm. No discrete mass or fluid collection. US/Head/Neck Soft Tissue IMPRESSION: The thyroid isthmus appears prominent. No discrete mass or fluid collection. Electronically Signed: Fritz Corley DO at 10:29 EDT Tel , Service support ,
== END ==
PROVIDERS: Visit Provider Nurse Practitioner Primary Care
DX: M54.2 Cervicalgia (principal)
CPT/HCPCS: 76536

== ENCOUNTER → 2018-10-25 12:10 | Outpatient (CLI) | payer OTHER, SELFPAY ==
[2018-10-25 12:41] LABS: Absolute Lymphocyte Count 0.33 X10^3/ul (0.83-4.51); Absolute Neutrophil Count 3.2 X10^3/uL (2.0-7.7); Basophil# 0.01 X10^3/uL; Basophil% 0.3 % (0-1); Hematocrit 37.1 % (37-47); Hemoglobin 12.3 g/dl (12.0-15.0); Lymphocyte # 0.33 X10^3/ul (4.0); Lymphocyte % 8.9 % (19-41); Mean Corp Hgb Conc 33.2 g/gl (32-36); Mean Corpuscular Hgb 29.3 pg (27.0-32.0); Mean Corpuscular Volume 88.3 fL (81-99); Monocyte% 5.4 % (0-10); Neutrophil # 3.16 X10^3/uL (2.7-7.7); Neutrophil % 85.1 % (47-70); Platelet Count 62 K/mm3 (150-450); RBC Distribution Width SD 41.2 fl (35.1-43.9); White Blood Count 3.7 K/mm3 (4.4-11.0)
[2018-10-25 12:44] LABS: Differential Indicated SCAN CRITERIA MET; POSITIVE COUNT NO; POSITIVE DIFFERENTIAL YES; POSITIVE MORPHOLOGY NO
[2018-10-25 13:07] LABS: Differential Comment SCANNED
[2018-10-26 11:10] LABS: Complement C3 44 mg/dL (82-167)
[2018-10-27 14:49] LABS: Anti-dsDNA Ab >300 IU/mL (0-9)
== END ==
DX: M32.9 Systemic lupus erythematosus, unspecified (principal); R80.9 Proteinuria, unspecified
CPT/HCPCS: 36415; 85025; 86160; 86225

== ENCOUNTER → 2018-11-10 08:04 | Outpatient (CLI) | payer OTHER, SELFPAY ==
[2018-11-10 08:35] LABS: Creatinine, Serum 0.55 mg/dL (0.55-1.02); EST Glomerular Filtration Rate 132 mL/min (>60); Est Glom Filt Rate - Afr Amer 160 mL/min (>60)
[2018-11-10 08:42] LABS: 24HR. UA Prot. Total Volume 400 mL; Creat.Clear Total Volume 400 mL; Creatinine Clearance 96 ml/min (100-200); Creatinine Serum Creat 0.6 mg/dL (0.6-1.0); EST Glomerular Filtration Rate 132 mL/min (>60); Est Glom Filt Rate - Afr Amer 160 mL/min (>60); Urine Protein (24 Hour) 452.8 mg/dL (<11.9)
== END ==
DX: M32.9 Systemic lupus erythematosus, unspecified (principal); R80.9 Proteinuria, unspecified
CPT/HCPCS: 36415; 82565; 82575; 84156

== ENCOUNTER 2019-01-19 08:18 | Emergency (ER) | payer OTHER, MEDICAID, SELFPAY ==
[2019-01-19 08:19] VITALS: BP 182/107; PULSE 119; RESP 20; TEMP 36.6; O2SAT 100; BMI 48.2
--- NOTE | 2019-01-19 08:29 | RAD_ITS ---
STUDY: X-RAY CHEST REASON FOR EXAM: Female, 33 years old. Shortness of breath. Cardiomyopathy. TECHNIQUE: PA and lateral views of the chest. COMPARISON: Comparison is made with prior study of March 07, 2018. FINDINGS: The lungs are clear and expanded. There is no demonstrated pleural abnormality. There is moderate cardiac enlargement. Normal mediastinum and benedict. Normal visualized pulmonary arteries. Normal visualized aortic arch and descending thoracic aorta. There is a dextroscoliosis of the thoracic spine. Normal visualized ribs, clavicles, and shoulders. There is no demonstrated abnormality of the visualized soft tissue structures of the upper abdomen. RAD/Chest PA and Lateral IMPRESSION: Moderate cardiomegaly. Electronically Signed: Kyle Almanzar, at 9:35 EDT , Service support ,
--- NOTE | 2019-01-19 08:29 | ED.VISSUMM ---
- ER Visit Summary Date of Service: 01/19/19 Chief Complaint: Shortness of breath History of Present Illness: The patient is a 33 F who states that she feels short of breath. This started yesterday. She has had a cough that she states is not productive. She does have a little bit of a sore throat and she feels congested in the back of her throat but not necessarily in her nose. She has no chest pain. She has not had a fever. She thought she heard a slight wheeze. She has a history of asthma. She does have a history of cardiomyopathy but no pulmonary issues in the past. She has no DVT or PE risk factors. Physical Examination: Vital signs are reviewed. HEENT exam reveals swollen turbinates bilaterally. TMs are clear. Heart is tachycardic and regular rhythm without murmurs. Lungs are clear bilaterally. No stridor. Abdomen soft nontender. Extremities reveal no edema. Her neurologic exam is normal Test Results: Chest x-ray reveals some cardiomegaly. I performed a bedside ultrasound and there is no pericardial effusion. Emergency Department Course and Treatment: Patient was given albuterol with minimal relief. She states it feels like it is more up in her throat. It may be from postnasal drainage. I will give her a dose of Decadron here. I will send her home with Mucinex D. She will need to follow-up with her primary care physician. Treatment Plan: [] Disposition: Discharge Impression: URI with cough This note was generated with [employer] dictation software. It may contain incorrect words, spelling, and punctuation that were not noted in review of the chart prior to signing ED Disposition - Plan for ED Patient: Referrals: Susanne Sanders DO [Primary Care Provider] -
--- NOTE | 2019-01-19 08:32 | NURSING ---
, [facility], FOR DR GEIGER
[2019-01-19] MEDS: Albuterol 2.5 MG/3 ML VIAL.NEB. INHALATION (08:39)
[2019-01-19 08:40] VITALS: PULSE 115; RESP 20
--- NOTE | 2019-01-19 09:54 | ED.DEP ---
ED Disposition - Plan for ED Patient: Disposition: Home or Assisted Living Instructions: ED Upper Resp Infec No Abx Tx Prescriptions: Guaifenesin/Pseudoephedrne HCl [Kro Mucus D ER 600-60 mg Tab] 1 ea PO BID #14 tab.er.[id number] Referrals: Susanne Sanders DO [Primary Care Provider] -
[2019-01-19 10:14] VITALS: BP 141/96; PULSE 99; RESP 16; O2SAT 99
== END 2019-01-19 10:15 | disposition home or self-care (01) ==
PROVIDERS: Emergency Provider Emergency Medicine
DX: J06.9 Acute upper respiratory infection, unspecified (principal); M32.9 Systemic lupus erythematosus, unspecified
CPT/HCPCS: 71046; 94640; 99283

== ENCOUNTER → 2019-02-02 15:13 | Outpatient (CLI) | payer MEDICAID, SELFPAY ==
--- NOTE | 2019-01-25 12:57 | PCM.HP.BLA ---
History and Physical Date of Admission: 02/09/19 Pre-Op History and Physical ? HPI: The patient is a 33 year old female presenting for pre-operative visit. She is scheduled for?laparoscopic bilateral salpingectomy, for?sterilization on?02/06/19. ??Procedure discussed along with risks, benefits and complications. ?Other alternatives discussed for management. Consent form signed??Yes.? PAST?MEDICAL?HISTORY PAST MEDICAL HISTORY Diagnosis Date ? Abnormal glandular Papanicolaou smear of cervix ? ? Abn. Pap smear (cervix) ? Cardiomyopathy 01/21/2010 ? post ? Carpal tunnel syndrome ? ? Dysthymic disorder ? ? Depression (non-psychotic) ? Gestational diabetes mellitus, antepartum 03/16/2014 ? Lupus (HCC) ? ? Migraine, unspecified, with intractable migraine, so stated, without mention of status migrainosus ? ? Migraine ? Obesity ? ? depression ? ? Psoriatic arthritis (HCC) ? ? Rheumatoid arthritis (HCC) ? ? Systemic lupus erythematosus (HCC) ? ? ? PAST?SURGICAL?HISTORY PAST SURGICAL HISTORY Procedure Laterality Date ? ANESTH, SECTION ? 03/22/2014 ? APPENDECTOMY ? ? ? DELIVERY ONLY ? 01/14/2010 ? , low transverse ? COLPOSCOPY (VAGINOSCOPY) ? ? ? Colposcopy ? D&C ? 11/2017 ? LAP CHOLECYSTOENTEROSTOMY ? 06/2011 ? ? CURRENT?MEDICATIONS ? Current Outpatient Medications: pseudoephedrine-guaiFENesin (,MUCINEX-D,) 60-600 mg per tablet guaiFENesin / Pseudoephedrine Guaifenesin/Pseudoephedrne Hcl 1 EA PO TWICE A DAY January 19, 2019 Active 01-19-2019 [facility] ([id number]) Disp: Rfl: belimumab (BENLYSTA) 200 mg/mL syrg Inject subcutaneously. Disp: Rfl: BIOTIN ORAL Take 1 tablet by mouth once daily. Disp: Rfl: DULoxetine (CYMBALTA) 60 mg capsule ? Disp: Rfl: predniSONE (DELTASONE) 5 mg tablet Take 10 mg by mouth once daily. as necessary Disp: Rfl: azathioprine (IMURAN ORAL) Take by mouth. Disp: Rfl: LISINOPRIL ORAL Take by mouth. Disp: Rfl: FOLIC ACID ORAL Take ?by mouth. Disp: Rfl: ? No current facility-administered medications for this visit.? ? ALLERGIES:?Codeine; Doxycycline; Percocet [Oxycodone-Acetaminophen]; Clindamycin; Morphine; Penicillins ? PERSONAL HISTORY:? 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 FAMILY HISTORY:? FAMILY?HISTORY FAMILY HISTORY Problem Relation Age of Onset ? Arthritis Mother ?rheumatoid ? Thyroid Mother ? ? Heart Mother ? ? Lipids Father ? ? Cancer Maternal Grandmother ?LUNG CANCER ? Heart Maternal Grandmother ? ? Thyroid Maternal Grandmother ? ? Heart Paternal Grandmother ? ? Thyroid Maternal Aunt ? ? Thyroid Maternal Aunt ? ? REVIEW OF SYMPTOMS: The risks/benefits/alternatives and personal involved for the planned?laparoscopic bilateral salpingectomy?were reviewed with the patient. Her questions were answered to her satisfaction and she desires to proceed. ?Consent was signed. ?I reviewed with her postop instructions and expectations. ? ? PHYSICAL EXAMINATION: ? VITALS:?Blood pressure 132/88, pulse 96, resp. rate 16, height 5' 5 (1.651 m), weight 285 lb (129.3 kg), last menstrual period 01/06/2019. ? GENERAL:??The patient is well nourished, well hydrated in no acute distress. ?, The patient is oriented to time, place, and person. NECK:?Supple. No lynphadenopathy, normal thyroid, no thyromegaly. LUNGS:?Clear to auscultation bilaterally. no wheezes, rhonchi or rales HEART:?Regular rate and rhythm, Normal heart sounds and No murmurs or gallops ? IMPRESSION:?The risks/benefits/alternatives and personal involved for the planned?laparoscopic bilateral salpingectomy?were reviewed with the patient. Her questions were answered to her satisfaction and she desires to proceed. ?Consent was signed. ?I reviewed with her postop instructions and expectations. ? ? PLAN:???sterilization request ? I have reviewed and updated past medical and surgical history, medications and allergies?this H&P performed in my office on 01/25/19 Savanna Alcantara M.D.
--- OUTSIDE RECORDS SUMMARY | 2019-05-26 13:17 | XMS RPT_ITS | CCD ---
:1985 External Reference #:[id number] Author Organization [employer] Care Team Providers Name Role Phone KINKOPF Unavailable Unavailable LYDIA Unavailable Unavailable EDEOGA Unavailable Unavailable MICHEL, F Unavailable Unavailable CHEPYSHON, V. Unavailable Unavailable PHYSICIAN Unavailable Unavailable KEIRA Unavailable Unavailable Nick ALEMAN Unavailable Unavailable Catherine PINEDO Unavailable Unavailable CONNER CERVANTES BA. Unavailable Unavailable BRESCIA, I. Unavailable Unavailable CHO Unavailable Unavailable LG Unavailable Unavailable LG Unavailable Unavailable LG Unavailable Unavailable LG Unavailable Unavailable ESTEE, A Admitting Unavailable ESTEE, A Attending Unavailable ESTEE, A Primary Care Unavailable ESTEE, A Admitting Unavailable ESTEE, A Attending Unavailable ESTEE, A Primary Care Unavailable ESTEE, A Admitting Unavailable ESTEE, A Attending Unavailable ESTEE, A Primary Care Unavailable ESTEE, A Admitting Unavailable ESTEE, A Attending Unavailable ESTEE, A Primary Care Unavailable Problems Category Problem Name Status Date Location Other inflammatory Arthropathic psoriasis, 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 on 2019-05-07 Beta HCG ( test) Negative Negative Normal 04-18 [facility] (U) System (00 000) Comment: Performed By: #### P14 #### [facility] [address] [place] [address] Specific [place], Ur 1.017 1.005-1.030 Normal 05-07- 019 [facility] (00 000) Comment: Performed By: #### P14 #### [facility] [address] [place], [place] [address] mdrd gfr on 2019-04 GFR/1.73 sq M >60 >60mL/min/1.73m2 mL/min/{1.73_m2} Normal [facility] non-blacks MDRD (000 00) (S/P/Bld) [Vol rate/Area] Comment: Result Comment: If the patie nt is , multiply the result by 1.210. Performed By: #### P14 #### [place] [address] magnesium blood on 2019-05-07 Magnesium [Mass/Vol] 1.4 1.6-2.6 mg/dL Low 9 [facility] ([address]) Comment: Performed By: #### P14 #### [place] [address] hemogram on 2019-04 Erythrocyte distribution 15.2 11.7-14.4 % High 05-07 [facility] width (RBC) [Ratio] System ([address]597) Comment: Performed By: #### P14 #### [place] [address] Hematocrit (Bld) [Volume 32.7 34.1-44.9 % Low 05-07 [facility] fraction] System (00 000) Comment: Performed By: #### P14 #### [place] [address] Hemoglobin (Bld) [Mass/Vol] 10.7 11.2-15.7 g/dL Low [facility] (00 000) Comment: Performed By: #### P14 #### [place] [address] MCH (RBC) [Entitic mass] 27.9 25.6-32.2 pg Normal 05-07 [facility] (00 000) Comment: Performed By: #### P14 #### [place] [address] MCHC (RBC) [Mass/Vol] 32.7 31.6-34.8 % Normal 05-07-20 19 [facility] ([address]) Comment: Performed By: #### P14 #### [facility] [address] [place], [place] [address] MCV (RBC) [Entitic vol] 85.4 79.4-94.8 fl Normal 2018 [facility] (00 000) Comment: Performed By: #### P14 #### [facility] [address] [place], [place] [address] Platelets (Bld) [#/Vol] 89 182-369 thou/cmm Low 2018 [facility] (00 000) Comment: Performed By: #### P14 #### [facility] [address] [place], [place] [address] RBC (Bld) [#/Vol] 3.83 3.93-5.22 mil/cmm Low 05-07-2019 [facility] [place] ([address]) Comment: Performed By: #### P14 #### [facility] [address] [place], [place] [address] RDW SD 47.4 36.4-46.3 fl High 05-07-2019 [facility] ([address]) Comment: Performed By: #### P14 #### [facility] [address] [place], [place] [address] WBC (Bld) [#/Vol] 5.52 3.98-10.04 thou/cmm Normal 05-07-2019 [facility] (00 000) Comment: Performed By: #### P14 #### [facility] [address] [place], [place] [address] ed triage note on ED Triage Note HNO ID: [id number] Normal 2018 [facility] Author: Shimon Clancy) TADEO [facility] Service: ? ([id number]) Author Type: Physician Diesel Engine Pipe Fitter Type: ED Triage Notes Filed: 05/07/2019 3:45 PM Note Text: ED INTAKE NOTE Patient Name: Kendra Franco Service Date: 05/07/19 BRIEF HPI: Patient presents with left-sided chest pain that radiates to left shoulder. Was seen last week and told she had pericardial ef fusion, was prescribed colchicine but was able to get this due to prior authorization. Has been taking her prescription medications at home but con tinues to have worsening pain and now feels that is worsen with deep b reathing. This is her second recurrence of pericardial effusion requir ed paracentesis in the past, was told it was a small amount of her recent visit and so is concerned it is worsening and may need drain ed BRIEF EXAM: Awake and Alert CTAB Abd soft/NT/ND; no rebound/guarding DUNAWAY Tachycardia without murmurs INTAKE WORKUP: Bloodwork: CBC CMP Cardiac Enzymes EKG Imaging: XR: chest SIGNATURE: Shimon Borges PA-C ed prov note on 201 06-24-21 ED PROV NOTE HNO ID: [id number] Normal 05-07-20 19 [facility] Author: Charu Montero [facility] Service: Emergency Medicine ([id number]) Author Type: Physician Type: ED Provider Notes Filed: 05/19/2019 8:56 PM Note Text: ED Provider Note Patient Name: Kendra Franco SERVICE DATE: 05/07/19 History Patient presents with: Chest Pain 34-year-old female presenting to the chest pain rating to melia fernando arm. Patient states that she was here last week, was seen for rell st pain as well, has a history of pleural effusion. 2 months ago anjum heard was hospitalized and had a pericardiocentesis performed. Last we ek she was seen at the ED for chest pain, had an echo performed, showed moderate effusion. Artist Relationship Manager recommended not performing a tap at t hat time and instead send patient home on colchicine. Patient says that c hest pain and shortness of breath started this morning. Denies any fevers or chill, abdominal pain, leg swelling, palpitations. Patient has a hi story of rheumatoid arthritis, psoriatic arthritis, lupus, pulmonary embolism. Patient is on Eliquis. PAST MEDICAL HISTORY Diagnosis Date - Abnormal glandular Papanicolaou smear of cervix Abn. Pap smear (cervix) - Cardiomyopathy 01/21/2010 post - Carpal tunnel syndrome - Diabetes (HCC) - Dysthymic disorder Depression (non-psychotic) - Gestational diabetes mellitus, antepartum 03/16/2014 - Hypertension 03/10/2019 - Lupus (HCC) - Migraine, unspecified, with intractable migraine, so state d, without mention of status migrainosus Migraine - Obesity - depression - Psoriatic arthritis (HCC) - Rheumatoid arthritis (HCC) - Systemic lupus erythematosus (HCC) PAST SURGICAL HISTORY Procedure Laterality Date - ANESTH, SECTION 03/22/2014 - APPENDECTOMY - DELIVERY ONLY 01/14/2010 , low transverse - COLPOSCOPY (VAGINOSCOPY) Colposcopy - DANDC 11/2017 - LAP CHOLECYSTOENTEROSTOMY 06/2011 FAMILY HISTORY Problem Relation Age of Onset - Arthritis Mother rheumatoid - Thyroid Mother - Heart Mother - Lipids Father - Cancer Maternal Grandmother LUNG CANCER - Heart Maternal Grandmother - Thyroid Maternal Grandmother - Heart Paternal Grandmother - Thyroid Maternal Aunt - Thyroid Maternal Aunt Social History Tobacco Use - Smoking status: Never Smoker - Smokeless tobacco: Never Used Substance and Sexual Activity - Alcohol use: Yes Comment: social alcohol use, not while - Drug use: No - Sexual activity: Yes Partners: Male Comment: vasectomy ALLERGIES Allergen Reactions - Codeine GI Upset States sharp stomach pains - Doxycycline Hives - Percocet [Oxycodone* Hives, Anaphylaxis - Clindamycin Rash - Morphine Swelling uvula swelling - Penicillins Rash Review of Systems Constitutional: Negative for chills, diaphoresis, fatigue an d fever. HENT: Negative. Eyes: Negative. Respiratory: Positive for shortness of breath. Negative for cough and wheezing. Cardiovascular: Positive for chest pain. Negative for palpit ations and leg swelling. Gastrointestinal: Negative. Genitourinary: Negative. Musculoskeletal: Negative. Skin: Negative. Neurological: Negative. Physical Exam BP 124/91 Pulse 99 Temp (Src) 97.7 (Oral) Resp 19 Ht 5' 5 (1.65m) Wt 270 lb (122.5kg) SpO2 95% BMI 44.93 kg/(m2). O2 Therapy: Room Air Physical Exam Constitutional: She is oriented to person, place, and time. She appears well-developed and well-nourished. Non-toxic appearance. She does not appear ill. No distress. HENT: Head: Normocephalic and atraumatic. Eyes: Pupils are equal, round, and reactive to light. EOM ar e normal. Neck: Normal range of motion. Neck supple. Cardiovascular: Intact distal pulses and normal pulses. Regular Tachycardic rhythm. No abnormal heart sounds heard. Heart sounds were not distant. Neck veins were not able to be visualized. Pulmonary/Chest: Effort normal and breath sounds normal. Abdominal: Soft. Bowel sounds are normal. Musculoskeletal: Normal range of motion. Neurological: She is alert and oriented to person, place, an d time. Skin: Skin is warm and dry. Diagnostic Testing ED Labs Ordered and Reviewed CBC + PLT (AK,AV,EU,FV,HL,FRANK,MM,SP) - Abnormal; Notable for the following components: Result Value Ref Range RBC 3.83 (*) 3.93 - 5.22 mil/cmm HGB 10.7 (*) 11.2 - 15.7 g/dL Hematocrit 32.7 (*) 34.1 - 44.9 % RDW 15.2 (*) 11.7 - 14.4 % RDW-SD 47.4 (*) 36.4 - 46.3 fl Platelet Count 89 (*) 182 - 369 thou/cmm All other components within normal limits COMPREHENSIVE METABOLIC PANEL (AK,AV,EU,FV,HL,FRANK,MM,SP) - Ab normal; Notable for the following components: Glucose 289 (*) 70 - 99 mg/dL BUN 19 (*) 7 - 18 mg/dL Calcium 8.2 (*) 8.5 - 10.1 mg/dL Albumin 2.6 (*) 3.4 - 5.0 g/dL Protein, Total 6.3 (*) 6.4 - 8.2 g/dL All other components within normal limits MAGNESIUM BLOOD (AK,AV,EU,FV,HL,FRANK,MM,SP) - Abnormal; Notabl e for the following components: Magnesium 1.4 (*) 1.6 - 2.6 mg/dL All other components within normal limits ECU TROPONIN I (AK ED) HCG QUALITATIVE URINE (AK,AV,EU,FV,HL,FRANK,MM,SP) MDRD GFR Clinical Impression Clinical Impressions as of May 07 2254 Pericardial effusion MDM / Disposition / Plan 34-year-old female presenting with chest pain range left arm . Patient has history of pleural effusion, PE, pericardiocentesis, lupus. Patient's presentation is very similar to her previous 10 days ago. Ec hocardiogram at the time showed effusion and ejection fraction of 63%. Tadeo davis was discharged with colchicine however she was unable to fill th is prescription. We will get basic lites and lab work, we will go troponin, chest x-ray. We performed a bedside ultrasound to see if there are any wa ll motion abnormalities to be seen in the heart. A small amount of flu id was visualized around the heart. There were no wall motion abnor malities visualized. He spoke to the on-call lace mender covering fo r her lace mender, we explained her current situation and he linda mmended sending her home is okay on her colchicine medication. We de termined that patient's colchicine was available to be picked up At the [facility] pharmacy. Lab work and chest x-ray was normal. We gave patient one dos e of colchicine. We discussed the findings and recommendations wi th the patient, she was okay with going home and filling the colchi cine prescription tomorrow at our pharmacy. Patient reports pain is better at this time. Discussed returning to the ED if pain returns or more shortness of breath. The patient was DISCHARGED: Counseled patient regarding lab results AND need for follow-up. Discharged home with verbal and written instructions. They were instructed to return as needed for persistent or w orsening symptoms or any new concerns. Condition at time of disposition: stable SIGNATURE: MD Gordon Robertson (Res) MD Pavel Resident 05/07/19 5060 Charu Montero DO 05/19/192055 ed note on ED NOTE HNO ID: [id number] Normal 05-07-2019 [facility] Author: Charu Montero DO [place] ([id number]) Service: Emergency Medicine Author Type: Physician Type: ED Notes Filed: 05/07/2019 5:53 PM Note Text: TEACHING ATTESTATION: I personally saw and examined the patient. I reviewed the re sident?s note. I agree with the resident?s assessment and plan unless other elder noted. This is a 34-year-old [facility] and shortness of breath. Patient has a known mode rate pericardial effusion and has been not taking occult machine that was prescribed to her on discharge approximately 8 days ago. She states that there was no prior authorization however it was confirmed th at she does have a prescription ready at our pharmacy here at [facility] The patient is in no acute respiratory distress. Bedsid e cardiac ultrasound was performed and limited use. Good wall motion a bnormality was appreciated. I would say that patient had a moderate darrian unt of fluid however difficult to assess when compared to her prior echoc ardiogram performed on admission approximately a week ago. We did sabine maher with her pharmacist to confirmed that the prescription is ready up at the [facility] pharmacy. She received her first dose here in the emergency department. [facility] for Dr. Blount. We reviewed the case with him and he felt that she was stable for discharge on Colcichine. Patient was disc harged in stable condition. ED NOTE HNO ID: [id number] Normal 05-07-2019 [facility] Author: Christina (Rn) DISHA [facility] ([id number]) Service: Emergency Medicine Author Type: Registered Nurse Type: ED Notes Filed: 05/07/2019 4:27 PM Note Text: Pt ready for xray ED NOTE HNO ID: [id number] Normal 05-07-2019 [facility] Author: Melvin (Rn) DISHA [facility] ([id number]) Service: Emergency Medicine Author Type: Registered Nurse Type: ED Notes Filed: 05/07/2019 3:41 PM Note Text: Pt complaining of left sided chest pain that started this am ; Stated pain radiates to left shoulder; Stated was diagnosed with a peric ardial effusion in February and had it drained on March 05; Stated was s ent home and was supposed to take colchicine but needed pre authorization ; Stated was here last week for same and sent home; (+) SOB; ecu troponin i on Troponin I.cardiac < 0.015 0.015-0.045 ng/mL Normal 9 [facility] [Mass/Vol] [facility] stem ([id number]) Comment: Performed By: #### P14 #### [facility] [address] [place], [place] [address] comprehensive panel on 2019-05-07 ALP [Catalytic activity/Vol] 65 45-117 U/L Normal 0 05-07-2019 [facility] (00 000) Comment: Performed By: #### P14 #### [facility] [address] [place], [place] [address] Bilirubin [Mass/Vol] 0.6 0.2-1.0 mg/dL Normal 9 [facility] ([address]) Comment: Performed By: #### P14 #### [facility] [address] [place], [place] [address] Creatinine [Mass/Vol] 0.67 0.51-0.95 mg/dL Normal 05-07-20 19 [facility] (00 000) Comment: Performed By: #### P14 #### [facility] [address] [place], [place] [address] Protein [Mass/Vol] 6.3 6.4-8.2 g/dL Low 05-07-2019 [facility] ([address]) Comment: Performed By: #### P14 #### [facility] [address] [place], [place] [address] ALT [Catalytic activity/Vol] 24 12-78 U/L Normal 0 05-07-2019 [facility] (00 000) Comment: Performed By: #### P14 #### [facility] [address] [place], [place] [address] AST [Catalytic activity/Vol] 28 15-37 U/L Normal 0 05-07-2019 [facility] (00 000) Comment: Performed By: #### P14 #### [facility] [address] [place], [place] [address] Albumin [Mass/Vol] 2.6 3.4-5.0 g/dL Low 05-07-2019 [facility] ([address]) Comment: Performed By: #### P14 #### [facility] [address] [place], [place] [address] Anion gap [Moles/Vol] 12 8-16 mmol/L Normal 05-07-20 19 [facility] ([address]) Comment: Performed By: #### P14 #### [facility] [address] [place], [place] [address] CO2 [Moles/Vol] 24 21-32 mEq/L Normal 05-07-2019 [facility] ([id number]) Comment: Performed By: #### P14 #### [facility] [address] [place], [place] [address] Urea nitrogen [Mass/Vol] 19 7-18 mg/dL High 05-07 [facility] ([address]) Comment: Performed By: #### P14 #### [facility] [address] [place], [place] [address] Calcium [Mass/Vol] 8.2 8.5-10.1 mg/dL Low 05-07-2019 [facility] ([address]) Comment: Performed By: #### P14 #### [facility] [address] [place], [place] [address] Glucose [Mass/Vol] 289 70-99 mg/dL High 05-07-2019 [facility] ([address]01) Comment: Performed By: #### P14 #### [facility] [address] [place], [place] [address] Chloride [Moles/Vol] 106 98-107 mEq/L Normal 9 [facility] ([address]) Comment: Performed By: #### P14 #### [facility] [address] [place], [place] [address] Potassium [Moles/Vol] 4.8 3.5-5.1 mEq/L Normal 05-07-20 19 [facility] ([address]) Comment: Performed By: #### P14 #### [facility] [address] [place], [place] [address] Sodium [Moles/Vol] 137 136-145 mEq/L Normal 05-07-2019 [facility] ([id number]) Comment: Performed By: #### P14 #### [facility] [address] [place], [place] [address] obsolete on 2019-04 OBSOLETE Refill (AGCARDPOB) Normal 05-02-2019 [place] KENDRA Rod[facility] ([id number]) 1985 F Medical Date Time Provider Department Center 05/02/19 YAZMIN FANG ([id number]) During your visit today, we recorded the following informati on about you: Jed Scherer RN 05/02/2019 1:20 PM Signed Patient's request for medication is as follows: Pending Prescriptions Disp Refills COLCHICINE 0.6 MG TABLET 60 tablet 2 Sig: Take 1 tablet by mouth twice daily. NADINE: No Per pt she only received 6 tablets on DC. Per hospital note pt to take for 3 months. Prescription(s) as above. Please process accordingly. DISHA Altamirano APRN.CNP 05/02/2019 5:32 PM Signed Please call to verify that she has appt with Dr. Aranda, she states was scheduled on 05/10/19. She should be evaluated, and have re peat echo done at that appt for pericardial effusion. thanks Yazmni Fang APRN.MOISE Scherer RN 05/03/2019 10:01 AM Signed Spoke with [facility]. Pt was given j ust 6 tablets of colchicine due to her insurance. Prior auth needed if pt to get more than the 6 ta blets. I spoke with Rachael at [facility]. She r eports pt is scheduled for an OV to re-establish care with Dr Aranda on 05/10/19. She reports Dr Aranda will not write rx for colchicine until pt seen in office. She asks that our office fill to get pt to her 05/10/19 OV. DISHA Altamirano APRN.CNP 05/03/2019 1:46 PM Signed Can we do prior auth, I have filled med ML Giron RN 05/04/2019 2:27 PM Signed I placed completed prior auth form on your desk for signatur eDISHA Chavarria RN 05/05/2019 11:11 AM Signed Order faxed to [employer]. Jed Scherer RN Allergies As of Date: 05/02/2019 Noted Allergy Reaction CODEINE 01/12/2012 8 - GI Upset Comments: States sharp stomach pains DOXYCYCLINE 07/28/2011 4 - Hives PERCOCET (OXYCODONE-ACETAMINOPHEN)07/22/2011 4 - Hives 10 - Anaphylaxis CLINDAMYCIN 05/09/2018 2 - Rash MORPHINE 10/21/2017 7 - Swelling Comments: uvula swelling PENICILLINS 11/28/2009 2 - Rash Date Reviewed: 04/28/2019 Reviewed by: Taylor (Rn) DISHA Lin - Fully Assessed Reason for Visit: Refill Request [94] Order(s):colchicine 0.6 mg tabletTake 1 tablet by mout h twice daily.Disp: 60 tabletRfl: 2 Prescriptions as of 05/02/2019 Sig: COLCHICINE 0.6 MG TABLET Take 1 tablet by mouth twice * PREDNISONE 20 MG TABLET Take 1 tablet by mouth once d* APIXABAN 5 MG TABLET Take 1 tablet by mouth twice * SPIRONOLACTONE 100 MG TABLET Take 1 tablet by mouth once d* FUROSEMIDE 20 MG TABLET Take 1 tablet by mouth as nee* MYCOPHENOLATE MOFETIL 500 MG * Take 1,000 mg by mouth twice * AMLODIPINE 10 MG TABLET Take 10 mg by mouth once susan* NORETHINDRONE (CONTRACEPTIVE)* Take 1 tablet by mouth once d * BENLYSTA SUBCUTANEOUS Inject 200 mg subcutaneously * ACETAMINOPHEN 500 MG TABLET Take 1 tablet by mouth every * CALCIUM CARBONATE 200 MG CALC* Take 1 tablet by mouth twice * DULOXETINE 30 MG CAPSULE,KRISTOPHER* Take 30 mg by mouth twice javi * BIOTIN ORAL Take 1 tablet by mouth once d* Problem List As Of Date 05/02/2019 Noted Resolved Supervision of Other High-Risk [O09.8*INVALID FOR* 01/27/2010 Routine general medical examination at a health*INVALID FOR* 10/13/2011 Class: Chronic More... Routine gynecological examination [Z01.419] INVALID FOR*09/18 Class: Chronic More... Cardiomyopathy, peripartum, [O90.3] INVALID FOR* More... TRAMAINE (generalized anxiety disorder) [F41.1] INVALID FOR* Impaired glucose tolerance [R73.02] INVALID FOR*04/11/2014 Lichen simplex chronicus [L28.0] INVALID FOR* Dyspareunia [RKG8689] INVALID FOR*04/11/2014 Pelvic cramping [R10.2] INVALID FOR*04/11/2014 Complex ovarian cyst [N83.299] INVALID FOR*04/11/2014 History of [Z98.891] INVALID FOR*04/11/2014 More... History of macrosomia in infant in prior pregna*INVALID FOR* 12/13/2017 More... Obesity, unspecified [E66.9] INVALID FOR*04/11/2014 More... History of depression [Z86.59] INVALID FOR* More... History of bronchitis [Z87.09] INVALID FOR*04/11/2014 More... Frequency of urination [R35.0] INVALID FOR* More... Elevated glucose [R73.09] INVALID FOR*04/11/2014 More... Maternal atypical antibody complicating pregnan*INVALID FOR* 04/11/2014 More... Gestational diabetes mellitus, antepartum [O24.*INVALID FOR* 04/11/2014 Antepartum multigravida of advanced maternal ag*INVALID FOR* 12/13/2017 More... History of delivery, currently pregnan*INVALID FOR* 12/13/2017 More... Morbid obesity (HCC) [E66.01] INVALID FOR* History of gestational diabetes in prior pregna*INVALID FOR* 12/13/2017 More... History of lupus (HCC) [M32.9] INVALID FOR* More... Pancytopenia (HCC) [D61.818] INVALID FOR* Pericardial effusion [I31.3] INVALID FOR* History of cardiomyopathy [Z86.79] INVALID FOR*04/28/2019 History of pulmonary embolism [Z86.711] INVALID FOR* More... Pericardial tamponade [I31.4] INVALID FOR* Thrombocytopenia (HCC) [D69.6] INVALID FOR* Obesity, Class III, BMI >= 40 [E66.01] INVALID FOR* Malnutrition of mild degree (HCC) [E44.1] INVALID FOR*2018 SLE exacerbation (HCC) [M32.9] INVALID FOR*04/28/2019 Pericarditis [I31.9] INVALID FOR* Hypertension [I10] INVALID FOR* Chronic ITP (idiopathic thrombocytopenia) (HCC)*INVALID FOR* Pulmonary embolus (HCC) [I26.99] INVALID FOR* Systemic lupus erythematosus (HCC) [M32.9] Obesity [E66.9] Diabetes ([facility]) [E11.9] Prescriptions ordered this encounter Disp Refills Start End COLCHICINE 0.6 MG TABLET 60 t* 2 05/03/2019 Route: ORAL Sig: Take 1 tablet by mouth twice daily. Medications Discontinued During This Encounter colchicine 0.6 mg tablet 60 t* 0 04/28/2019 05/03/2019 Route: ORAL Sig: Take 1 tablet by mouth twice daily. Disc: Reason for discontinue is not on file. Encounter Status:Closed by JED SCHERER on 05/05/19 stephanie on 2019-05-02 MOISEN Telephone (AGCARDPOB) Normal 05-02-20 [facility] FRANCOKENDRA ([id number]) 1985 F Medical Date Time Provider Department Center 05/02/19 YAZMIN FANG ([id number]) During your visit today, we recorded the following informati on about you: Jed Scherer RN 05/02/2019 1:20 PM Signed Patient's request for medication is as follows: Pending Prescriptions Disp Refills COLCHICINE 0.6 MG TABLET 60 tablet 2 Sig: Take 1 tablet by mouth twice daily. NADINE: No Per pt she only received 6 tablets on DC. Per hospital note pt to take for 3 months. Prescription(s) as above. Please process accordingly. DISHA Altamirano APRN.MENDING CARRIER 05/02/2019 5:32 PM Signed Please call to verify that she has appt with Dr. Aranda, she states was scheduled on 05/10/19. She should be evaluated, and have re peat echo done at that appt for pericardial effusion. thanks Yazmni Fang APRN.MOISE Scherer RN 05/03/2019 10:01 AM Signed Spoke with [facility]. Pt was given j ust 6 tablets of colchicine due to her insurance. Prior auth needed if pt to get more than the 6 ta blets. I spoke with Rachael at [facility]. She r eports pt is scheduled for an OV to re-establish care with Dr Aranda on 05/10/19. She reports Dr Aranda will not write rx for colchicine until pt seen in office. She asks that our office fill to get pt to her 05/10/19 OV. DISHA Altamirano APRN.MOISE 05/03/2019 1:46 PM Signed Can we do prior auth, I have filled med Yazmin Fang APRN.MOISE Scherer RN 05/04/2019 2:27 PM Signed I placed completed prior auth form on your desk for signatur e. DISHA Altamirano RN 05/05/2019 11:11 AM Signed Order faxed to [facility]. DISHA Altamirano RN 05/05/2019 2:36 PM Signed Colchicine approved by insurance for 6 months. Jed Scherer RN Allergies As of Date: 05/02/2019 Noted Allergy Reaction CODEINE 01/12/2012 8 - GI Upset Comments: States sharp stomach pains DOXYCYCLINE 07/28/2011 4 - Hives PERCOCET (OXYCODONE-ACETAMINOPHEN)07/22/2011 4 - Hives 10 - Anaphylaxis CLINDAMYCIN 05/09/2018 2 - Rash MORPHINE 10/21/2017 7 - Swelling Comments: uvula swelling PENICILLINS 11/28/2009 2 - Rash Date Reviewed: 04/28/2019 Reviewed by: Taylor (Disha) DISHA Lin - Fully Assessed Reason for Visit: Refill Request [94] Refill Request [94] Reason For Visit History Recorded Order(s):colchicine 0.6 mg tabletTake 1 tablet by mout h twice daily.Disp: 60 tabletRfl: 2 Prescriptions as of 05/02/2019 Sig: COLCHICINE 0.6 MG TABLET Take 1 tablet by mouth twice * PREDNISONE 20 MG TABLET Take 1 tablet by mouth once d* APIXABAN 5 MG TABLET Take 1 tablet by mouth twice * SPIRONOLACTONE 100 MG TABLET Take 1 tablet by mouth once d* FUROSEMIDE 20 MG TABLET Take 1 tablet by mouth as nee* MYCOPHENOLATE MOFETIL 500 MG * Take 1,000 mg by mouth twice * AMLODIPINE 10 MG TABLET Take 10 mg by mouth once susan* NORETHINDRONE (CONTRACEPTIVE)* Take 1 tablet by mouth once d * BENLYSTA SUBCUTANEOUS Inject 200 mg subcutaneously * ACETAMINOPHEN 500 MG TABLET Take 1 tablet by mouth every * CALCIUM CARBONATE 200 MG CALC* Take 1 tablet by mouth twice * DULOXETINE 30 MG CAPSULE,KRISTOPHER* Take 30 mg by mouth twice javi * BIOTIN ORAL Take 1 tablet by mouth once d* Problem List As Of Date 05/02/2019 Noted Resolved Supervision of Other High-Risk [O09.8*INVALID FOR* 01/27/2010 Routine general medical examination at a health*INVALID FOR* 10/13/2011 Class: Chronic More... Routine gynecological examination [Z01.419] INVALID FOR*09/18 Class: Chronic More... Cardiomyopathy, peripartum, [O90.3] INVALID FOR* More... TRAMAINE (generalized anxiety disorder) [F41.1] INVALID FOR* Impaired glucose tolerance [R73.02] INVALID FOR*04/11/2014 Lichen simplex chronicus [L28.0] INVALID FOR* Dyspareunia [OQW3424] INVALID FOR*04/11/2014 Pelvic cramping [R10.2] INVALID FOR*04/11/2014 Complex ovarian cyst [N83.299] INVALID FOR*04/11/2014 History of [Z98.891] INVALID FOR*04/11/2014 More... History of macrosomia in in prior pregna*INVALID FOR* 12/13/2017 More... Obesity, unspecified [E66.9] INVALID FOR*04/11/2014 More... History of depression [Z86.59] INVALID FOR* More... History of bronchitis [Z87.09] INVALID FOR*04/11/2014 More... Frequency of urination [R35.0] INVALID FOR* More... Elevated glucose [R73.09] INVALID FOR*04/11/2014 More... Maternal atypical antibody complicating pregnan*INVALID FOR* 04/11/2014 More... Gestational diabetes mellitus, antepartum [O24.*INVALID FOR* 04/11/2014 Antepartum multigravida of advanced maternal ag*INVALID FOR* 12/13/2017 More... History of delivery, currently pregnan*INVALID FOR* 12/13/2017 More... Morbid obesity (HCC) [E66.01] INVALID FOR* History of gestational diabetes in prior pregna*INVALID FOR* 12/13/2017 More... History of lupus (HCC) [M32.9] INVALID FOR* More... Pancytopenia (HCC) [D61.818] INVALID FOR* Pericardial effusion [I31.3] INVALID FOR* History of cardiomyopathy [Z86.79] INVALID FOR*04/28/2019 History of pulmonary embolism [Z86.711] INVALID FOR* More... Pericardial tamponade [I31.4] INVALID FOR* Thrombocytopenia (HCC) [D69.6] INVALID FOR* Obesity, Class III, BMI >= 40 [E66.01] INVALID FOR* Malnutrition of mild degree (HCC) [E44.1] INVALID FOR*2018 SLE exacerbation (HCC) [M32.9] INVALID FOR*04/28/2019 Pericarditis [I31.9] INVALID FOR* Hypertension [I10] INVALID FOR* Chronic ITP (idiopathic thrombocytopenia) (HCC)*INVALID FOR* Pulmonary embolus (HCC) [I26.99] INVALID FOR* Systemic lupus erythematosus (HCC) [M32.9] Obesity [E66.9] Diabetes (HCC) [E11.9] Prescriptions ordered this encounter Disp Refills Start End COLCHICINE 0.6 MG TABLET 60 t* 2 05/03/2019 Route: ORAL Sig: Take 1 tablet by mouth twice daily. Medications Discontinued During This Encounter colchicine 0.6 mg tablet 60 t* 0 04/28/2019 05/03/2019 Route: ORAL Sig: Take 1 tablet by mouth twice daily. Disc: Reason for discontinue is not on file. Encounter Status:Closed by JED SCHERER on 05/05/19 plan of care on 06-24-12 PLAN OF CARE HNO ID: [id number] 04-28-20 [facility] Author: Yeimy Kim ([employer] Wafer) Center ([id number]) Service: Pharmacy Author Type: ? Type: Plan of Care Filed: 04/28/2019 4:33 PM Note Text: Pharmacy Discharge Medication Service: This patient has elected to receive their discharge prescrip tions through the [facility] Bedside Prescription Delivery program. The prescriptions are currently being processed. A follow-up not e will be entered once the prescriptions have been filled and delivere d to the patient. Please contact me with any questions or updates to the patient's discharge medications. Yeimy Kim ([employer]) DCT Contact Info: Extension [phone], or [phone] PLAN OF CARE HNO ID: [id number] Normal 04-28-20 [facility] Author: Yeimy Kim ([employer]) Center ([id number]) Service: Pharmacy Author Type: ? 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 Patient to use [facility] Bedside Delivery - YES Insurance Information as follows: 2. Insurance card on file - YES 3. Credit card for payment - N/A Patient calling [place] to get her coverage fixed, they stil l think she has primary coverage, which she does not. Prednisone 20 mg Contact Yeimy at [phone] with questions prior to discharge mdrd gfr on 2019-04 GFR/1.73 sq M >60 >60mL/min/1.73m2 mL/min/{1.73_m2} Normal [facility] non-blacks MDRD (000 00) (S/P/Bld) [Vol rate/Area] Comment: Result Comment: If the patie nt is , multiply the result by 1.210. Performed By: #### ESR #### [facility] [address] [place], [place] [address] magnesium blood on 2019-04-28 Magnesium [Mass/Vol] 1.7 1.6-2.6 mg/dL Normal 9 [facility] ([id number]) Comment: Performed By: #### ESR #### [facility] [address] [place], [place] [address] hemogram/diff on 05-05-12 Abs Immature Grans 0.05 0.00-0.05 thou/cmm Normal 04-28-2019 [facility] (00 000) Comment: Performed By: #### ESR #### [facility] [address] [place], [place] [address] Abs Neut (ANC) 5.72 1.56-6.13 thou/cmm Normal 04-28-2019 [facility] (13446) Comment: Performed By: #### ESR #### [facility] [address] [place], [place] [address] Abs. Baso 0.01 0.01-0.08 thou/cmm Normal 04-28-2019 [facility] (53806) Comment: Performed By: #### ESR #### [facility] [address] [place], [place] [address] Abs. [place] 0.51 0.27-0.70 thou/cmm Normal 04-28-2019 [facility] (06324) Comment: Performed By: #### ESR #### [facility] [address] [place], [place] [address] Basophils/100 WBC (Bld) 0.2 % Normal 2018 [facility] (92600) Comment: Performed By: #### ESR #### [facility] [address] [place], [place] [address] Eosinophils (Bld) 0.00 0.00-0.31 thou/cmm Normal 04-28-2019 [facility] [#/Vol] [facility] (35271) Comment: Performed By: #### ESR #### [facility] [address] [place], [place] [address] Eosinophils/100 WBC (Bld) 0.0 % Normal 04-17 [facility] (23519) Comment: Performed By: #### ESR #### [facility] [address] [place], [place] [address] Immature Grans 0.80 % Normal 04-28-2019 [facility] (38181) Comment: Performed By: #### ESR #### [facility] [address] [place], [place] [address] Lymphocytes (Bld) [#/Vol] 0.31 1.18-3.74 thou/cmm Low 04-17 [facility] (00 000) Comment: Performed By: #### ESR #### [facility] [address] [place], [place] [address] Lymphocytes/100 WBC (Bld) 4.7 % Normal 04-17 [facility] (94510) Comment: Performed By: #### ESR #### [facility] [address] [place], [place] [address] Monocytes/100 WBC (Bld) 7.7 % Normal 2018 [facility] (72359) Comment: Performed By: #### ESR #### [facility] [address] [place], [place] [address] Seg Neutrophil 86.6 % Normal 04-28-2019 [facility] (33426) Comment: Performed By: #### ESR #### [facility] [address] [place], [place] [address] Erythrocyte distribution 15.2 11.7-14.4 % High 04-28 [facility] width (RBC) [Ratio] System (24554) Comment: Performed By: #### ESR #### [facility] [address] [place], [place] [address] Hematocrit (Bld) [Volume 30.4 34.1-44.9 % Low 04-28 [facility] System (00 000) Comment: Performed By: #### ESR #### [facility] [address] [place], [place] [address] Hemoglobin (Bld) [Mass/Vol] 9.6 11.2-15.7 g/dL Low [facility] (00 000) Comment: Performed By: #### ESR #### [facility] [address] [place], [place] [address] MCH (RBC) [Entitic mass] 27.8 25.6-32.2 pg Normal 04-28 [facility] (00 000) Comment: Performed By: #### ESR #### [facility] [address] [place], [place] [address] MCHC (RBC) [Mass/Vol] 31.6 31.6-34.8 % Normal 04-28-20 19 [facility] (49528) Comment: Performed By: #### ESR #### [facility] [address] [place] [id number] MCV (RBC) [Entitic vol] 88.1 79.4-94.8 fl Normal 2018 [facility] (00 000) Comment: Performed By: #### ESR #### [facility] [address] [place] [address] Platelet mean volume (Bld) 13.1 9.4-12.[address] [facility] [Entitic vol] System (60955) Comment: Performed By: #### ESR #### [facility] [address] [place] [id number] Platelets (Bld) [#/Vol] 111 182-369 thou/cmm Low 2018 [facility] (00 000) Comment: Performed By: #### ESR #### [facility] [address] [place] [address] RBC (Bld) [#/Vol] 3.45 3.93-5.22 mil/cmm Low 04-28-2019 [facility] [place] (07154) Comment: Performed By: #### ESR #### [facility] [address] [place] [address] RDW SD 48.6 36.4-46.3 fl High 04-28-2019 [facility] (30958) Comment: Performed By: #### ESR #### [facility] [address] [place] [id number] WBC (Bld) [#/Vol] 6.61 3.98-10.04 thou/cmm Normal 04-28-2019 [facility] (00 000) Comment: Performed By: #### ESR #### [facility] [address] [place] [address] consult prog on 06-24-12 CONSULT PROG HNO ID: [id number] Normal 04-28-20 19 [facility] Author: Yazmin Fang Medical Service: [facility] Author Type: Nurse Practitioner ([id number]) Type: Consult Progress Note Filed: 04/28/2019 4:25 PM Note Text: CARDIOLOGY CONSULT PROGRESS NOTE CARDIOLOGY ATTENDING: Dr. Blount/ outpatient lace mender is Dr. Aranda Date and Reason for initial consult: Pericardial effusion INTERVAL HISTORY: Patient here with symptoms of shortness of breath and chest tightness. Pleuritic in nature worse with lying down a nd better with sitting up. Known history of previous pericardial effusion, required pericardial drain in February. Found have repeat pericardial effu basia on limited study echo, moderate, no signs of tamponade. Patient with history of lupus, previous PE, ITP and depression. Patient has been placed back on Naprosyn and colchicine, patient only had one month prescrip tion for this at discharge, and thought she was not to continue this. She is recommended for treatment for colchicine for 3 months. Eliquis was resum ed yesterday. Order limited study echo to reassess effusion, is stable can be discharged and will be recommended for follow-up with Dr. Aranda Patient says she is appointment on 05/10/19. PERTINENT ROS: Denies complaints of chest pain, palpitations , or SOB MEDICATIONS: Current Facility-Administered Medications Medication Dose Route Frequency - acetaminophen 500-1,000 mg tab(s) (TYLENOL) 500-1,000 mg O RAL q 6 H PRN - amLODIPine 10 mg tab(s) (NORVASC) 10 mg ORAL DAILY - colchicine 0.6 mg tab(s) 0.6 mg ORAL BID - apixaban 5 mg tab(s) (ELIQUIS) 5 mg ORAL BID - mycophenolate mofetil 1,000 mg cap(s) (CELLCEPT) 1,000 mg ORAL BID - pantoprazole DR 40 mg tab(s) (PROTONIX) 40 mg ORAL DAILY ( 6 AM) - DULoxetine 30 mg cap(s) (CYMBALTA) 30 mg ORAL BID - NaCl 0.9% 3-5 mL 3-5 mL INTRAVENOUS q 12 H - ondansetron 4 mg tab(s) (ZOFRAN) 4 mg ORAL q 6 H PRN Or - ondansetron (PF) 4 mg injection (ZOFRAN) 4 mg INTRAVENOUS q 6 H PRN - magnesium hydroxide 400 mg/5 mL 30 mL (MOM) 30 mL ORAL JAVI LY PRN - bisacodyl 10 mg suppository (DULCOLAX) 10 mg RECTAL DAILY PRN - furosemide 20 mg tab(s) (LASIX) 20 mg ORAL DAILY - Norethindrone (Contraceptive) tab 0.35 mg 1 tablet ORAL DA CARLEY - spironolactone 100 mg tab(s) (ALDACTONE) 100 mg ORAL DAILY - predniSONE 20 mg tab(s) (DELTASONE) 20 mg ORAL DAILY - perflutren lipid microspheres 1.1 mg/mL 1.3 mL injection ( DEFINITY) 1.3 mL INTRAVENOUS DIRECTED PRN PHYSICAL EXAM: Vital Signs 04/27/19200204/28/19 0157 04/28/19 0255 04/28/19 0851 BP: 138/96 152/93 159/100 Pulse: 101 96 110 Resp: Temp: 36.7 ?C (98.1 ?F) 37 ?C (98.6 ?F) 36.6 ?C (97.9 ?F) TempSrc: Oral Oral Oral SpO2: 100% 98% 96% Weight: Height: Temp (24hrs), Av.7 ?C (98.1 ?F), Min:36.6 ?C (97.9 ?F), Max:37 ?C (98.6 ?F) Intake/Output: Intake/Output Summary (Last 24 hours) at 04/28/2019 1123 Last data filed at 04/28/2019 0519 Gross per 24 hour Intake 570 ml Output ? Net 570 ml Oxygen therapy: RA Admit Weight: 277 lbs Gen: AANDO x 3, NAD Neck: no jugular venous distention Cardiac: S1, S2+ RRR without murmur, gallop, or rubs. Resp: clear to auscultation bilaterally Abd: Soft, non-tender. Bowel sounds normal. Ext: no edema, moves all extremities with no apparent weakne ss Tele: sinus tachycardia Labs: No results found for this basename: CK:3,MB:3,MBP:3,CKMBP:3, TROPT:3 Recent Labs 04/28/1920404/27/19134 WBC 6.61 6.18 HB 9.6* 9.9* HCT 30.4* 30.7* PLT 111* 101* Recent Labs 04/28/1920404/27/19134 NA 140 138 K 3.6 4.5 CHLOR 108* 107 CO2 27 25 BUN 19* 24* CREAT 0.45* 0.61 GLUC 147* 269* ALKPHOS -- 64 ALT -- 24 AST -- 15 No results found for this basename: chol,hdl,ldl DATA: Echocardiogram 04/27/19: EF 63%, concentric LVH, trace MR, tr renetta TR, moderate circumferential pericardial effusion, no evidence o f tamponade. ASSESSMENT AND PLAN: 1. Pericardial effusion: Moderate circumferential pericardia l effusion on echo. Back on colchicine, Naprosyn. Recommend colchicine frank atment for at least 3 months. Eliquis was resumed yesterday, we'll reasses s limited study echo this afternoon. If this is stable patient could b e just discharged to home. She has follow-up appointment with Dr. Sonal king on 05/10/19. 2. History of pulmonary embolus: Eliquis is been resumed. 3. History of SLE 4. ITP: Platelets 111, stable. Await repeat ltd study echo, if pericardial effusion stable, ok for discharge with follow up with Dr. Aranda. Addendum:Repeat echo done today with large posterior pericar dial effusion, Moderate circumferential, no tamponade physiology, reviewed with Dr. Blount, Dr. Harrington, and no change from previous echo, Spoke t sonal RN, and patient who verbalizes understanding. Pt needs repeat echo at with Dr. Aranda in [place]. SIGNATURE:Yazmin Fang APRN.MENDING CARRIER PAGER:[phone] DATE / TIME of SERVICE: April 28, 2019 11:23 AM This note is not final until Authenticated by responsible pr isaac. case managem on 201 06-24-12 CASE MANAGEM HNO ID: [id number] Normal 04-28-20 19 [facility] Author: Jose Alfredo OneillRnRaheem Padilla RN [place] ([id number]) Service: Care Management Author Type: Registered Nurse Type: Care Mgt Progress Note Filed: 04/28/2019 9:44 AM Note Text: CARE MANAGEMENT PROGRESS NOTE SERVICE DATE: 04/28/2019 SERVICE TIME: 939 LOS: 1 day Needs Prior to Discharge: None Pt planning to return home when medically ready. No needs no andres at this time. Will continue to follow SIGNATURE: Jose Alfredo Padilla RN PATIENT NAME: Kendra heard DATE: April 28, 2019 TIME: 9:43 AM PAGER/CONTACT #: [phone] c4 on 2019-04-28 C4 9.8 10.0-40.0 mg/dL Low 04-28-2019 [facility] ([id number]) Comment: Performed By: #### ESR #### [facility] [address] [place], [place] [address] c3 on 2019-04-28 C3 51.2 90.0-180.0 mg/dL Low 04-28-2019 [facility] (00809) Comment: Performed By: #### ESR #### [facility] [address] [place], [place] [address] basic panel on 2018 Creatinine [Mass/Vol] 0.45 0.51-0.95 mg/dL Low 04-28-20 19 [facility] (96591) Comment: Performed By: #### ESR #### [facility] [address] [place], [place] [address] Anion gap [Moles/Vol] 9 8-16 mmol/L Normal 04-28-20 19 [facility] (93748) Comment: Performed By: #### ESR #### [facility] [address] [place], [place] [address] CO2 [Moles/Vol] 27 21-32 mEq/L Normal 04-28-2019 [facility] (09746) Comment: Performed By: #### ESR #### [facility] [address] [place], [place] [address] Glucose [Mass/Vol] 147 70-99 mg/dL High 04-28-2019 [facility] (96099) Comment: Performed By: #### ESR #### [facility] [address] [place], [place] [address] Urea nitrogen [Mass/Vol] 19 7-18 mg/dL High 04-28 [facility] (20013) Comment: Performed By: #### ESR #### [facility] [address] [place], [place] [address] Calcium [Mass/Vol] 8.1 8.5-10.1 mg/dL Low 04-28-2019 [facility] (96689) Comment: Performed By: #### ESR #### [facility] [address] [place], [place] [address] Chloride [Moles/Vol] 108 98-107 mEq/L High 9 [facility] (15169) Comment: Performed By: #### ESR #### [facility] [address] [place], [place] [address] Potassium [Moles/Vol] 3.6 3.5-5.1 mEq/L Normal 04-28-20 19 [facility] (74683) Comment: Performed By: #### ESR #### [facility] [address] [place], [place] [address] Sodium [Moles/Vol] 140 136-145 mEq/L Normal 04-28-2019 [facility] (40672) Comment: Performed By: #### ESR #### [facility] [address] [place], [place] [address] sed rate on 2019-04 Sed Rate 62 0-20 mm/hr High 04-27-2019 [facility] (46424) Comment: Performed By: #### ESR #### [facility] [address] [place], [place] [address] progress on 2019-04 PROGRESS HNO ID: [id number] Normal 04-27-2019 [facility] Author: [facility] Service: Hospital Medicine ([id number]) Author Type: Physician Type: Progress Notes Filed: 04/27/2019 7:11 PM Note Text: INPATIENT PROGRESS NOTE SERVICE DATE: 04/27/2019 SERVICE TIME: 11:00 PRIMARY SERVICE: Hospitalist Subjective CHIEF COMPLAINT: shortness of breath , pleuritic chest pain INTERVAL HPI: 34 year old female has a past medical history of Cardiomyopa thy (01/21/2010), Pulmonary Embolism, Pericardia effusion, Diabe carlo ([facility]), Dysthymic disorder, Hypertension (03/10/2019), Lupus ([facility]), M igraine, Obesity, presented with Worsening SOB for last few days. Ini tially SOB was mild, intermittent but gradually getting worse, more per sistent and now present even at rest. Started gradually. Exacerbated by General Activity/Exertion. Relieved only partially by rest. For this illness, patient's functional status has declined from baseline and h ave some difficulty in performing ADLs Current Facility-Administered Medications Medication Dose Route Frequency - acetaminophen 500-1,000 mg tab(s) (TYLENOL) 500-1,000 mg O RAL q 6 H PRN - amLODIPine 10 mg tab(s) (NORVASC) 10 mg ORAL DAILY - colchicine 0.6 mg tab(s) 0.6 mg ORAL BID - apixaban 5 mg tab(s) (ELIQUIS) 5 mg ORAL BID - mycophenolate mofetil 1,000 mg cap(s) (CELLCEPT) 1,000 mg ORAL BID - pantoprazole DR 40 mg tab(s) (PROTONIX) 40 mg ORAL DAILY ( 6 AM) - DULoxetine 30 mg cap(s) (CYMBALTA) 30 mg ORAL BID - NaCl 0.9% 3-5 mL 3-5 mL INTRAVENOUS q 12 H - ondansetron 4 mg tab(s) (ZOFRAN) 4 mg ORAL q 6 H PRN Or - ondansetron (PF) 4 mg injection (ZOFRAN) 4 mg INTRAVENOUS q 6 H PRN - magnesium hydroxide 400 mg/5 mL 30 mL (MOM) 30 mL ORAL JAVI LY PRN - bisacodyl 10 mg suppository (DULCOLAX) 10 mg RECTAL DAILY PRN - furosemide 20 mg tab(s) (LASIX) 20 mg ORAL DAILY - Norethindrone (Contraceptive) tab 0.35 mg 1 tablet ORAL DA CARLEY - spironolactone 100 mg tab(s) (ALDACTONE) 100 mg ORAL DAILY - [START ON 04/28/2019] predniSONE 20 mg tab(s) (DELTASONE) 2 0 mg ORAL DAILY Objective PHYSICAL EXAM: BP 115/70 Pulse 95 Temp (Src) 97.9 (Oral) Resp 18 Ht 5' 5 (1.65m) Wt 277 lb (125.6kg) SpO2 96% BMI 46.10 kg/(m2). O2 Therapy: Room Air Physical Exam Performed GENERAL: mild respiratory distress, Alert and awake, Breathi ng is labored but maintaining SPO2 >95% on room air HEENT: PERRLA, no icterus. OP clear and no exudates. NECK: Supple, There is no LAD or thyromegaly. no carotid/oph thalmic bruits, JVD None. RESPIRATORY: There is no visible deformity. Bilateral equal vesicular BS with diffused bilateral expiratory wheezing. Lung bases has bilateral fine crepitations HEART: No tachycardia at bedside and regular rhythm. Normal S1 and S2, No S3 or S4 is audible. No pulsation, thrills, murmur or fricti on rubs ABDOMEN: Soft, nondistended, nontender. No hepatomegaly or s plenomegaly. No CVA tenderness on the both sides. Bowel sound is present EXTREMITIES: All peripheral pulses are present. No calf tend erness or swelling. Mild(+) pedal edema is present. No rash, clubbing, or cyanosis MUSCULOSKELETAL: No joint swelling, deformity, or tenderness NEUROLOGY: Alert and awake. No new focal neuro deficit. Bila teral Pupil is equal and reactive to light. CN-ii-xii grossly intact. Motor and Sensory: Grossly Intact bilaterally with no new focal signs SKIN: Negative for rashes and lesions. ? DATA: Diagnostic tests reviewed for today's visit: Most recent labs and imaging results. Assessment/Plan Active Problems: # Recurrent Pericardial Effusion - Underlying SLE/Connective tissue disease - Carmelo 2/2 SLE exacerbation vs other cause Currently virals stable. No tachycardia. On room air. No hypotension. No features of tamponade On Steroid + Colchicine + Mycophenolat Telemetry Cardiology Appreciated No need for pericardiocenthesis , , repeat ech o , ESR and CRP elevated but lower than in February,will get C3, C4, AND speak with Rheumatology # H/o Pulmonary Embolism with Hypercoagulability (SLE/Lupus) Continue Eliquis # Anxiety with mood disorder/derpession Currently not grossly psychotic and denied any delusion/hallucination Continue home medications # Obesity - BMI 46 Diet - Low fat, heart healthy diet Counseled on weight reduction and physical exacercise F/u with PCP Nutritional counseling # Hypertension Currently better controlled Continue home medications as needed Monitor vitals and adjust BP meds as needed # Chronic ITP (idiopathic thrombocytopenia) Platelet counts stable, Will monitor CBC # DM moderately controlled On Low carb diet Placed on sliding scale inulin Bedside glucose before meals and bedtime and adjust insuline accordingly # Rest of the chronic medical problems are stable and will b e managed with appropriately with home medications, as indicated. # DVT Prophylaxis : Therapeutic anticoagulation # Diet: On PO Diet # IVF's: No # Fall Precaution: Yes # Disposition: Home/primary residence # Code Status: Full code by default ? Disposition home once cleared medically Medication and Non-Pharmacologic VTE Prophylaxis/Anticoagula nts Anticoagulant AND Antiplatelet Medications (From admission, onward) Start Dose Route Frequency Ordered Stop 04/27/19 0900 apixaban 5 mg tab(s) (ELIQUIS) 5 mg ORAL 2 TIMES DAILY 04/27/19 0032 -- 04/27/1944 vte non-pharmacologic prophylaxis - none indic ated ([place], [place]) 04/27/1944 vte current anticoag therapy ([place], [place]) 04/27/1944 activity - mobilize patient ([place], [place]) VTE Prophylaxis: VTE prophylaxis appropriate SIGNATURE: Brian Walter MD PATIENT NAME: Kendra Franco DATE: April 27, 2019 TIME: 7:00 PM PAGER: PROGRESS HNO ID: [id number] Normal 04-27-2019 [facility] Author: Yeimy Kim [facility] Service: Pharmacy ([phone]) Author Type: ? 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 Patient to use [facility] Bedside Delivery - YES Insurance Information as follows: 2. Insurance card on file - YES 3. Credit card for payment - N/A No prescriptions written for pt yet, please call Pharmacy Be dside Delivery at [phone] or [phone] once scripts written and discharg e orders placed. Yeimy Kim (Baihe) plan of care on 06-24-11 PLAN HNO ID: [id number] Normal 04-27-2019 Brianne OF Author: Madhu Spencer (Baihe) General CARE Service: Pharmacy Ak dical Author Type: ? Aneesh wang Type: Plan of Care ( [id number]) Filed: 04/27/2019 3:36 PM Note Text: Attestation signed by Gisela Tolentino (Pharmacist) at 04/17 4:41 PM MEDICATION RECONCILIATION Patient Name:Leanna Franco : 1985 Reconciliation: Yes Discussed with LIP, plans to add /modify meds based on updated medication history- text paged sound purple at 1640. BC pills will need addressed - > Non formulary Item, hold unless patient able to supply Spironolactone- patient taking at home, was using this and not taking lasix regularly Potassium Date Value Ref Range Status 04/27/2019 4.5 3.5 - 5.1 mEq/L Final Duloxetine- patient takes full 60 mg in am not split 30 [place] B [place] [id number] or [id number] after 5pm GISELA TOLENTINO, PHARMACIST April 27, 2019 4:38 PM MEDICATION HISTORY Patient Name:Leanna Franco : 1985 Source of history:Patient: Reliability of source: Appears re liable, clearly identified: Medication name, Medication dose, Medica tion route, Medication frequency, Timing of last dose and Indications an d Pharmacy records: [facility] [phone] and [facility] [phone] Medication Nonadherence Identified: No barriers noted The above information represents the best possible medicatio n history: Yes Additional comments: Patient confirmed all of her [employer] medications. She stated andrez t she was instructed to use her furosemide as needed for swelling but has not used it for some time. She also said was prescribed to take no nolactone to help with swelling as well and because it has added benefit for her thinning hair. She also stated she takes prednisone 10-20mg every day depending on how she feels, because it is the only thing andrez t helps with pain associated with her lupus and her lip cutter has brandon d her try a lot of other medications that don't work seem to work as wel l as prednisone does. Patient stated she takes both of her duloxe emily capsules in the morning as opposed to one every morning and one every evening. Patient also admitted she has not taken her belimumab (BENLY STA) for quite some time because she keeps the medication in her refrigerat or, and her refrigerator broke. This caused the injections to get to roque m temperature and her PCP instructed her to now use the medication after t hat incident. She could not recall when her refrigerator broke, or when sonia received her last dose of the medication but after contacting [facility], they confirmed they have not filled the medication since 02/03/19. Patient Compliance: Fair [id number] Medication List Adjustments: Medication Regimen Changes Medication Change Reason N/A N/A N/A Medications Added Medication Regimen Source/Comments Emi 0.35mg tablets Take one tabley by mouth daily Per pat ient and fill history at [facility] Spironolactone 100mg tablets Take one tablet by mouth daily Per patient and fill history at [facility], see additional comments for further clarification Medications Removed Medication Reason Pantoprazole 40mg tablets Patient stated the only thing she takes for heartburn, and gastric reflux are tums as needed. Short-Term Medications: Medication Regimen Indication Duration/Stop Date N/A N/A N/A Further Clarification Required: Medication Issue N/A N/A Patient is a 30 day readmission: No Patient Interested in Bedside Delivery: Yes Time Spent Reviewing Patient's Medications: 30 minutes Medication History Status (Justify NOT COMPLETED status): COMPLETED Allergies: ALLERGIES Allergen Reactions - Codeine GI Upset States sharp stomach pains - Doxycycline Hives - Percocet [Oxycodone* Hives, Anaphylaxis - Clindamycin Rash - Morphine Swelling uvula swelling - Penicillins Rash Preferred Pharmacy: [facility] [phone] Current [employer]IL [employer]MER Medications: Prior to Admission medications as of 04/27/19 1503 Medication Sig Last Dose Taking mycophenolate Mofetil (CELLCEPT) 500 mg tablet Take 1,000 mg by mouth twice daily. 04/26/2019 at Unknown time Yes amLODIPine (NORVASC) 10 mg tablet Take 10 mg by mouth once d aily. 04/27/2019 at Unknown time Yes apixaban (ELIQUIS) 5 mg tab(s) Take 5 mg by mouth twice susan y. Unknown at Unknown time Yes Norethindrone, Contraceptive, (EMI) 0.35 mg tablet Take 1 tablet by mouth once daily. Yes spironolactone (ALDACTONE) 100 mg tablet Take 100 mg by mout h once daily. Yes acetaminophen (TYLENOL) 500 mg tablet Take 1 tablet by mouth every 8 hours as needed for Pain. Yes calcium carbonate (TUMS) 500 mg chew Take 1 tablet by mouth twice daily as needed (heartburn). Yes colchicine 0.6 mg tablet Take 1 tablet by mouth twice daily. 04/26/2019 at Unknown time Yes predniSONE (DELTASONE) 10 mg tablet 60mg oral daily for 1 we ek, 50 mg daily for 1 week, 40 mg daily for 1 week, 30 mg daily for 1 week, 20 mg daily for 1 week then continue on 10 mg daily. Patient taking differently: Take 20 mg by mouth once daily. 60mg oral daily for 1 week, 50 mg daily for 1 week, 40 mg daily for 1 week, 30 mg daily for 1 week, 20 mg daily for 1 week then continue on 10 mg daily. 04/26/2019 at Unknown time Yes DULoxetine (CYMBALTA) 30 mg capsule Take 30 mg by mouth twic e daily. 04/26/2019 at Unknown time Yes furosemide (LASIX) 20 mg tablet Take 20 mg by mouth as neede d (leg swelling). Yes BIOTIN ORAL Take 1 tablet by mouth once daily. Yes belimumab (BENLYSTA SUBCUTANEOUS) Inject 200 mg subcutaneous ly once each week. Unknown at Unknown time Madhu Spencer ([employer]fer) April 27, 2019 3:06 PM phosphorus blood on 2019-04-27 Phosphate [Mass/Vol] 3.8 2.5-4.9 mg/dL Normal 9 [facility] ([id number]) Comment: Performed By: #### ESR #### [facility] [address] [place] [address] nutrition on 04-27 NUTRITION HNO ID: [id number] Normal 04-27-2019 [place] Author: Sandra Garcia) DANIS Saeed General Service: Nutrition Therapy Medical Author Type: Registered [facility]itian Center Type: Nutrition ([phone]) Filed: 04/27/2019 3:21 PM Note Text: NUTRITION THERAPY SCREENING NOTE SERVICE DATE: 04/27/2019 SERVICE TIME: 15:10 NUTRITION CARE PLAN: No nutrition diagnosis at this time Intervention: 1. Encouraged oral intake, may need CHO controlled diet if B S's remain elevated with steroid use Monitor and Evaluation: Goal: Meet >75% of estimated needs Monitor fluid/electrolyte balance Monitor labs, I/Os, vital signs, weight Discharge Nutrition Recommendations: Diet: Regular Reason for Assessment: Hx mild malnutrition Per HPI: 34 year old female with PMHx cardiomyopathy, pulmon silvia embolism, pericardial effusion, DM, HTN, and SLE. Orders Placed This Encounter DIET REGULAR Standing Status: Standing Number of Occurrences: 1 Lines and Drains: Peripheral 04/26/19 Admission to Hospital Left Antecubital 2 0 Gauge (Active) Nutritional Intake Prior to Admission: >75% estimated energy needs over the past 1 month(s). Anjum heard states that after last hospital admission in February, her appetite and i ntake have much improved. States she is doing better, more structured m eals and has maintained her weight. GI symptoms: none noted ANTHROPOMETRICS Height: 165.1 cm (5' 5) Admission Weight: 125.6 kg (277 lb) Current Weight: 125.6 kg (277 lb) Body mass index is 46.1 kg/m?. class 3 obesity Weight has not changed significantly x 2 months Last Wt 04/27/19 : 125.6 kg (277 lb) 03/16/19 : 123.8 kg (273 lb) 03/10/19 : 123.9 kg (273 lb 2.4 oz) 01/25/19 : 129.3 kg (285 lb) 01/06/19 : 128.8 kg (284 lb) 11/30/18 : 129.5 kg (285 lb 6.4 oz) 11/14/18 : 129.5 kg (285 lb 6.4 oz) 05/09/18 : 128.8 kg (284 lb) 04/18/18 : 132 kg (291 lb) 03/23/18 : 133.8 kg (295 lb) 02/17/18 : 135.4 kg (298 lb 9.6 oz) 12/13/17 : (!) 142.9 kg (315 lb) 12/07/17 : (!) 144.3 kg (318 lb 3.2 oz) 11/01/17 : (!) 153.8 kg (339 lb) 06/12/16 : (!) 152.4 kg (336 lb) 07/10/14 : (!) 137 kg (302 lb) 05/10/14 : 133.8 kg (295 lb) 05/03/14 : 133.2 kg (293 lb 9.6 oz) 04/11/14 : 133.7 kg (294 lb 12.8 oz) 03/22/14 : (!) 155.1 kg (342 lb) Temperature Max in 24 hours: Temp (24hrs), Av.7 ?C (98.1 ?F), Min:36.3 ?C (97.3 ?F), Max:37 ?C (98.6 ?F) BP 140/100 Pulse 101 Temp 36.9 ?C (98.4 ?F) (Oral) Res p 18 Ht 165.1 cm (5' 5) Wt 125.6 kg (277 lb) SpO2 98% BMI 46. 10 kg/m? Recent Labs 04/27/19 1041 04/27/19 0135 GLUC -- 269* BUN -- 24* CREAT -- 0.61 NA -- 138 K -- 4.5 CHLOR -- 107 CO2 -- 25 ALB -- 2.7* P -- 3.8 CRP 1.89* -- HB -- 9.9* HCT -- 30.7* WBC -- 6.18 MG -- 1.4* MNT Billing Type: Initial Assess/15 min 2 units SIGNATURE: Sandra Saeed RD PATIENT NAME: Kendra Franco DATE: April 27, 2019 TIME: 2:04 PM PAGER: [phone] magnesium blood on 2019-04-27 Magnesium [Mass/Vol] 1.4 1.6-2.6 mg/dL Low 9 [facility] ([id number]) Comment: Performed By: #### ESR #### [facility] [address] [place], [place] [address] history physical on 2019-04-27 HISTORY PHYSICAL HNO ID: [id number] Normal 04-17 [facility] Author: Mimi Barnett [facility] Service: Hospital Medicine ([id number]) Author Type: Physician Type: HANDP Filed: 04/27/2019 5:00 AM Note Text: DEPARTMENT OF HOSPITAL MEDICINE HISTORY AND PHYSICAL EXAM AUTHOR: Mimi Foreman MD PATIENT NAME: Kendra Franco DATE: April 27, 2019 2:44 AM , : 1985 Primary Care Physician: Nabeel Sanders, NIGHT AND WEEKEND COVERAGE: From 7am - 7pm, please call Sound Physician on duty After 7pm, please call cross cover pager #[phone] Subjective CHIEF COMPLAINT: Worsening SOB HPI: This is a 34 year old female has a past medical history of Cardiomyopathy (01/21/2010), Pulmonary Embolism, Pericardia effusion, Diabetes ([facility]), Dysthymic disorder, Hypertension (03/10/2019) , Lupus (HCC), Migraine, Obesity, presented with Worsening SOB for last few days. Initially SOB was mild, intermittent but gradually getting w orse, more persistent and now present even at rest. Started gradually. Exacerbated by General Activity/Exertion. Relieved only partially by rest. For this illness, patient's functional status has declined from basel ine and have some difficulty in performing ADLs.The patient was seen and examined at bedside upon arrival to floor, appears alert and awake with mild respiratory distress and is able to answer simple questions. Not associated with / patient denied any resting ongoing chest p ain, hemoptysis, productive cough, fever, ongoing palpitation, ac tive abdominal pain, hematemesis, rectal bleeding, billie, hematuria, any o ther and GI complaints, sudden change in vision, episode of blurred visi on, diplopia and any new focal neuro deficits. PAST MEDICAL HISTORY Diagnosis Date - Abnormal glandular Papanicolaou smear of cervix Abn. Pap smear (cervix) - Cardiomyopathy 01/21/2010 post - Carpal tunnel syndrome - Diabetes (HCC) - Dysthymic disorder Depression (non-psychotic) - Gestational diabetes mellitus, antepartum 03/16/2014 - Hypertension 03/10/2019 - Lupus (HCC) - Migraine, unspecified, with intractable migraine, so state d, without mention of status migrainosus Migraine - Obesity - depression - Psoriatic arthritis (HCC) - Rheumatoid arthritis (HCC) - Systemic lupus erythematosus (HCC) PAST SURGICAL HISTORY Procedure Laterality Date - ANESTH, SECTION 03/22/2014 - APPENDECTOMY - DELIVERY ONLY 01/14/2010 , low transverse - COLPOSCOPY (VAGINOSCOPY) Colposcopy - DANDC 11/2017 - LAP CHOLECYSTOENTEROSTOMY 06/2011 FAMILY HISTORY Problem Relation Age of Onset - Arthritis Mother rheumatoid - Thyroid Mother - Heart Mother - Lipids Father - Cancer Maternal Grandmother LUNG CANCER - Heart Maternal Grandmother - Thyroid Maternal Grandmother - Heart Paternal Grandmother - Thyroid Maternal Aunt - Thyroid Maternal Aunt Social History Tobacco Use - Smoking status: Never Smoker - Smokeless tobacco: Never Used Substance Use Topics - Alcohol use: Yes Comment: social alcohol use, not while - Drug use: No HOME MEDICATIONS: Medications Prior to Admission: mycophenolate Mofetil (CELLCEPT) 500 mg tablet Take 1,000 mg by mouth twice daily. Disp: Rfl: 3 04/26/2019 at Unknown time amLODIPine (NORVASC) 10 mg tablet Take 10 mg by mouth once d aily. Disp: Rfl: 1 04/27/2019 at Unknown time apixaban (ELIQUIS) 5 mg tab(s) Take 5 mg by mouth twice susan y. Disp: Rfl: Unknown at Unknown time colchicine 0.6 mg tablet Take 1 tablet by mouth twice daily. Disp: 60 tablet Rfl: 0 04/26/2019 at Unknown time predniSONE (DELTASONE) 10 mg tablet 60mg oral daily for 1 we ek, 50 mg daily for 1 week, 40 mg daily for 1 week, 30 mg daily for 1 week, 20 mg daily for 1 week then continue on 10 mg daily. (Patient demetrio ng differently: Take 20 mg by mouth once daily. 60mg oral daily for 1 week, 50 mg daily for 1 week, 40 mg daily for 1 week, 30 mg daily for 1 week, 20 mg daily for 1 week then continue on 10 mg daily. ) Disp: 100 tablet Rfl: 0 04/26/2019 at Unknown time DULoxetine (CYMBALTA) 30 mg capsule Take 30 mg by mouth twic e daily. Disp: Rfl: 04/26/2019 at Unknown time belimumab (BENLYSTA SUBCUTANEOUS) Inject subcutaneously once each week. Disp: Rfl: Unknown at Unknown time acetaminophen (TYLENOL) 500 mg tablet Take 1 tablet by mouth every 8 hours as needed for Pain. Disp: 50 tablet Rfl: 0 Unknown at Unknow n time calcium carbonate (TUMS) 500 mg chew Take 1 tablet by mouth twice daily as needed (heartburn). Disp: 30 tablet Rfl: 0 Unknown at Unknow n time pantoprazole DR (PROTONIX) 40 mg tablet Take 1 tablet by roxie th DAILY (6 AM). Disp: 30 tablet Rfl: 0 Unknown at Unknown time furosemide (LASIX) 20 mg tablet Take 20 mg by mouth as neede d (leg swelling). Disp: Rfl: Unknown at Unknown time BIOTIN ORAL Take 1 tablet by mouth once daily. Disp: Rfl: Un known at Unknown time MEDICATIONS: Current Facility-Administered Medications Medication Dose Route Frequency - acetaminophen 500-1,000 mg tab(s) (TYLENOL) 500-1,000 mg O RAL q 6 H PRN - amLODIPine 10 mg tab(s) (NORVASC) 10 mg ORAL DAILY - colchicine 0.6 mg tab(s) 0.6 mg ORAL BID - apixaban 5 mg tab(s) (ELIQUIS) 5 mg ORAL BID - mycophenolate mofetil 1,000 mg cap(s) (CELLCEPT) 1,000 mg ORAL BID - pantoprazole DR 40 mg tab(s) (PROTONIX) 40 mg ORAL DAILY ( 6 AM) - DULoxetine 30 mg cap(s) (CYMBALTA) 30 mg ORAL BID - NaCl 0.9% 3-5 mL 3-5 mL INTRAVENOUS q 12 H - ondansetron 4 mg tab(s) (ZOFRAN) 4 mg ORAL q 6 H PRN Or - ondansetron (PF) 4 mg injection (ZOFRAN) 4 mg INTRAVENOUS q 6 H PRN - magnesium hydroxide 400 mg/5 mL 30 mL (MOM) 30 mL ORAL JAVI LY PRN - bisacodyl 10 mg suppository (DULCOLAX) 10 mg RECTAL DAILY PRN ALLERGIES Allergen Reactions - Codeine GI Upset States sharp stomach pains - Doxycycline Hives - Percocet [Oxycodone* Hives, Anaphylaxis - Clindamycin Rash - Morphine Swelling uvula swelling - Penicillins Rash ROS: Pertinent positives and negatives are noted in the HPI, all other systems are reviewed and negative. Objective Physical Exam: BP 153/100 Pulse 97 Temp (Src) 98.2 (Oral ) Resp 17 Ht 5' 5 (1.65m) Wt 277 lb (125.6kg) SpO2 95% BMI 46.1 0 kg/(m2). O2 Therapy: Room Air GENERAL: mild respiratory distress, Alert and awake, Breathi ng is labored but maintaining SPO2 >95% on room air HEENT: PERRLA, no icterus. OP clear and no exudates. NECK: Supple, There is no LAD or thyromegaly. no carotid/oph thalmic bruits, JVD None. RESPIRATORY: There is no visible deformity. Bilateral equal vesicular BS with diffused bilateral expiratory wheezing. Lung bases has bilateral fine crepitations HEART: No tachycardia at bedside and regular rhythm. Normal S1 and S2, No S3 or S4 is audible. No pulsation, thrills, murmur or fricti on rubs ABDOMEN: Soft, nondistended, nontender. No hepatomegaly or s plenomegaly. No CVA tenderness on the both sides. Bowel sound is present EXTREMITIES: All peripheral pulses are present. No calf tend erness or swelling. Mild(+) pedal edema is present. No rash, clubbing, or cyanosis MUSCULOSKELETAL: No joint swelling, deformity, or tenderness NEUROLOGY: Alert and awake. No new focal neuro deficit. Bila teral Pupil is equal and reactive to light. CN-ii-xii grossly intact. Motor and Sensory: Grossly Intact bilaterally with no new focal signs SKIN: Negative for rashes and lesions. Admission Lab/Imaging/Procedure workup: Available labs/imaging/test results were reviewed by me. Most recent labs and imaging results. Results for orders placed or performed during the hospital e ncounter of 04/27/19 CBC + PLT (AK,AV,EU,FV,HL,FRANK,MM,SP) Result Value Ref Range WBC 6.18 3.98 - 10.04 thou/cmm RBC 3.50 (L) 3.93 - 5.22 mil/cmm HGB 9.9 (L) 11.2 - 15.7 g/dL Hematocrit 30.7 (L) 34.1 - 44.9 % MCV 87.7 79.4 - 94.8 fl MCH 28.3 25.6 - 32.2 pg MCHC 32.2 31.6 - 34.8 % RDW 15.2 (H) 11.7 - 14.4 % RDW-SD 48.7 (H) 36.4 - 46.3 fl Platelet Count 101 (L) 182 - 369 thou/cmm MPV 12.1 9.4 - 12.3 fl COMPREHENSIVE METABOLIC PANEL (AK,AV,EU,FV,HL,FRANK,MM,SP) Result Value Ref Range Sodium 138 136 - 145 mEq/L Potassium 4.5 3.5 - 5.1 mEq/L Chloride 107 98 - 107 mEq/L CO2 25 21 - 32 mEq/L Glucose 269 (H) 70 - 99 mg/dL BUN 24 (H) 7 - 18 mg/dL Creatinine 0.61 0.51 - 0.95 mg/dL Calcium 8.0 (L) 8.5 - 10.1 mg/dL Albumin 2.7 (L) 3.4 - 5.0 g/dL Protein, Total 6.2 (L) 6.4 - 8.2 g/dL AST 15 15 - 37 U/L ALT 24 12 - 78 U/L Alkaline Phosphatase 64 45 - 117 U/L Bilirubin, Total 0.4 0.2 - 1.0 mg/dL Anion Gap 11 8 - 16 MAGNESIUM BLOOD (AK,AV,EU,FV,HL,FRANK,MM,SP) Result Value Ref Range Magnesium 1.4 (L) 1.6 - 2.6 mg/dL PHOSPHORUS INORGANIC (AK,AV,EU,FV,HL,FRANK,MM,SP) Result Value Ref Range Phosphorus 3.8 2.5 - 4.9 mg/dL MDRD GFR Result Value Ref Range eGFR >60 >60mL/min/1.73m2 Present on Admission: - Pericardial effusion - Chronic ITP (idiopathic thrombocytopenia) (HCC) - TRAMAINE (generalized anxiety disorder) - History of cardiomyopathy - History of pulmonary embolism - Hypertension - Morbid obesity (HCC) - SLE exacerbation (HCC) - Systemic lupus erythematosus (HCC) - Obesity - Diabetes (HCC) Anticoagulant AND Antiplatelet Medications (From admission, onward) Start Dose Route Frequency Ordered Stop 04/27/19 0900 apixaban 5 mg tab(s) (ELIQUIS) 5 mg ORAL 2 TIMES DAILY 04/27/19 0032 -- Assessment/Plan # Recurrent Pericardial Effusion - Underlying SLE/Connective tissue disease - SLE exacerbation vs other cause Currently virals stable. No tachycardia. On room air. No hypotension. No features of tamponade On Steroid + Colchicine + Mycophenolate On Lasix Plan for Echo and Cardiology consult, possible need for woodrow cardocentesis / window Telemetry Cardiology and Rheumatology consult # H/o Pulmonary Embolism with Hypercoagulability (SLE/Lupus) Continue Eliquis # Anxiety with mood disorder/derpession Currently not grossly psychotic and denied any delusion/em ucination Continue home medications # Obesity - BMI 46 Diet - Low fat, heart healthy diet Counseled on weight reduction and physical exacercise F/u with PCP Nutritional counseling # Hypertension Currently better controlled Will resume home medications as needed Monitor vitals and adjust BP meds as needed # Chronic ITP (idiopathic thrombocytopenia) Platelet counts stable, Will monitor CBC # DM moderately controlled On Low carb diet Pyrotechnist consult Placed on sliding scale inulin Bedside glucose before meals and bedtime and adjust insuline accordingly # Rest of the chronic medical problems are stable and will b e managed with appropriately with home medications, as indicated. # DVT Prophylaxis : Therapeutic anticoagulation # Diet: On PO Diet # IVF's: No # Fall Precaution: Yes # Disposition: Home/primary residence # Code Status: Full code by default The Patient at bedside was counseled about clinical status, laboratory/imaging results, diagnoses, and treatment plan, a ll questions were answered to patient's satisfaction. The side effects, a lternatives and risk of the prescribed medications were explained and ve rbalized understanding. I have reviewed patient medical record including blood work and radiology report, total time spent with patient is greater than 45 min utes more than 50% of the time is spent in direct patient care. SIGNATURE: Mimi Foreman MD PATIENT NAME: Kendra Franco DATE: April 27, 2019 TIME: 2:44 AM PAGER/CONTACT #: [phone] Disclaimer: Portions of this note may have been generated us ing [employer] voice recognition software. Reasonable efforts were made to correct any dictation errors that resulted due to the programming of [employer] software but some may still be present. hemogram on 2019-04 Erythrocyte distribution 15.2 11.7-14.4 % High 04-27 [facility] width (RBC) [Ratio] System ([id number]) Comment: Performed By: #### GFR #### [facility] [address] [place], [place] [address] Hematocrit (Bld) [Volume 30.7 34.1-44.9 % Low 04-27 [facility] fraction] System (00 000) Comment: Performed By: #### GFR #### [facility] [address] [place], [place] [address] Hemoglobin (Bld) [Mass/Vol] 9.9 11.2-15.7 g/dL Low [facility] (00 000) Comment: Performed By: #### GFR #### [address] [address] MCH (RBC) [Entitic mass] 28.3 25.6-32.2 pg Normal 04-27 [facility] System (00 000) Comment: Performed By: #### GFR #### [place] [address] MCHC (RBC) [Mass/Vol] 32.2 31.6-34.8 % Normal 04-27-20 19 [facility] ([id number]) Comment: Performed By: #### GFR #### [place] [address] MCV (RBC) [Entitic vol] 87.7 79.4-94.[address] [facility] System (00 000) Comment: Performed By: #### GFR #### [place] [address] Platelet mean volume (Bld) 12.1 9.4-12.[address] [facility] [Entitic vol] System ([id number]) Comment: Performed By: #### GFR #### [address] [address] Platelets (Bld) [#/Vol] 101 182-369 thou/cmm Low 2018 [facility] (00 000) Comment: Performed By: #### GFR #### [address] [address] RBC (Bld) [#/Vol] 3.50 3.93-5.22 mil/cmm Low 04-27-2019 [email or web address] [facility] ([id number]) Comment: Performed By: #### GFR #### [facility] [address] [place], [place] [address] RDW SD 48.7 36.4-46.3 fl High 04-27-2019 [facility] (00271) Comment: Performed By: #### GFR #### [facility] [address] [place] [address] WBC (Bld) [#/Vol] 6.18 3.98-10.04 thou/cmm Normal 04-27-2019 [facility] (00 000) Comment: Performed By: #### GFR #### [facility] [address] [place] [address] crp on 2019-04-27 CRP [Mass/Vol] 1.89 0.00-0.30 mg/dL High 04-27-2019 [facility] ([id number]) Comment: Performed By: #### ESR #### [place] [address] consult on CONSULT HNO ID: [id number] Normal 04-27-2019 [facility] Author: Leonard Arzate [facility] Service: Cardiovascular Medicine ([id number]) Author Type: Physician Type: Consults Filed: 04/27/2019 1:37 PM Note Text: CARDIOLOGY CONSULT NOTE SERVICE DATE: 04/27/2019 SERVICE TIME: 9:41 AM PCP: Nabeel Sanders DO ATTENDING: Shari Masterson REASON FOR CONSULT: pericardial effusion CHIEF COMPLAINT: pericardial effusions HPI:Cardiac consultation at the request of Dr. Masterson Ms. Franco is a 34 year old female who is seen today for peric ardial effusion. She has a PMHx of provoked PE due to OCP use and i s on eliquis (she did not take eliquis for the past 1 week as she was tra velling), SLE on chronic steroid therapy, hx of massive pericardial effusi on that was drained 2-3 months back, HTN, depression. She has a history of Diabetes and Elevated Blood Pressure. S he was admitted to [facility] with chief complain ts of Shortness of breath and chest tightness. She describes her c hest tightness as pleuritic, gets worse on lying down and better when she s its upright. Says this was a/w shortness of breath on exertion. She also endorses swelling of both of her feet which has gotten worse since sh sonia was discharged after pericardial effusion drainage, She was supp osed to be on naproxen and colchicine but stopped her colchicine one month after as she did not have any refills and did not follow up withher [facility] ologist. She denies dizziness, syncope, fever, chills, URI infection, abd ominal distension, cough, sputum production. Clinically, the patient has not had hemodynamic instability. She has shortness of breath and chest tightness as described above. She denies symptoms of a recent viral prodrome. She has also has not si ck contacts. She went to [facility] where she got an CT chest done and it showed moderate pericardial effusion. Her workup included transthoracic echocardiogram, and this r evealed that she had a medium pericardial effusion. The echocardiogram taylor ggested that the effusion was circumferential. There was no evidence of r ight Atrial and Ventricular indentation/collapse. The inflow velocity va riation across the atrioventricular valves was not significant for t amponade. The inferior vena cava was normal in size, and collapsed >50% wi th inspiration. Overall, the study was not suggestive of tampon ludwig. PAST MEDICAL HISTORY Diagnosis Date - Abnormal glandular Papanicolaou smear of cervix Abn. Pap smear (cervix) - Cardiomyopathy 01/21/2010 post - Carpal tunnel syndrome - Diabetes (HCC) - Dysthymic disorder Depression (non-psychotic) - Gestational diabetes mellitus, antepartum 03/16/2014 - Hypertension 03/10/2019 - Lupus (HCC) - Migraine, unspecified, with intractable migraine, so state d, without mention of status migrainosus Migraine - Obesity - depression - Psoriatic arthritis (HCC) - Rheumatoid arthritis (HCC) - Systemic lupus erythematosus (HCC) PAST SURGICAL HISTORY Procedure Laterality Date - ANESTH, SECTION 03/22/2014 - APPENDECTOMY - DELIVERY ONLY 01/14/2010 , low transverse - COLPOSCOPY (VAGINOSCOPY) Colposcopy - DANDC 11/2017 - LAP CHOLECYSTOENTEROSTOMY 06/2011 SOCIAL HISTORY Social History Tobacco Use - Smoking status: Never Smoker - Smokeless tobacco: Never Used Substance Use Topics - Alcohol use: Yes Comment: social alcohol use, not while - Drug use: No FAMILY HISTORY Problem Relation Age of Onset - Arthritis Mother rheumatoid - Thyroid Mother - Heart Mother - Lipids Father - Cancer Maternal Grandmother LUNG CANCER - Heart Maternal Grandmother - Thyroid Maternal Grandmother - Heart Paternal Grandmother - Thyroid Maternal Aunt - Thyroid Maternal Aunt ALLERGIES: ALLERGIES Allergen Reactions - Codeine GI Upset States sharp stomach pains - Doxycycline Hives - Percocet [Oxycodone* Hives, Anaphylaxis - Clindamycin Rash - Morphine Swelling uvula swelling - Penicillins Rash MEDICATIONS: mycophenolate Mofetil (CELLCEPT) 500 mg tablet Take 1,000 mg by mouth twice daily. amLODIPine (NORVASC) 10 mg tablet Take 10 mg by mouth once d aily. apixaban (ELIQUIS) 5 mg tab(s) Take 5 mg by mouth twice susan y. colchicine 0.6 mg tablet Take 1 tablet by mouth twice daily. predniSONE (DELTASONE) 10 mg tablet 60mg oral daily for 1 we ek, 50 mg daily for 1 week, 40 mg daily for 1 week, 30 mg daily for 1 week, 20 mg daily for 1 week then continue on 10 mg daily. DULoxetine (CYMBALTA) 30 mg capsule Take 30 mg by mouth twic e daily. belimumab (BENLYSTA SUBCUTANEOUS) Inject subcutaneously once each week. acetaminophen (TYLENOL) 500 mg tablet Take 1 tablet by mouth every 8 hours as needed for Pain. calcium carbonate (TUMS) 500 mg chew Take 1 tablet by mouth twice daily as needed (heartburn). pantoprazole DR (PROTONIX) 40 mg tablet Take 1 tablet by roxie th DAILY (6 AM). furosemide (LASIX) 20 mg tablet Take 20 mg by mouth as neede d (leg swelling). BIOTIN ORAL Take 1 tablet by mouth once daily. REVIEW OF SYSTEMS: GENERAL: Negative for:Weight loss and Weight gain HEENT: Negative for:Nosebleeds RESPIRATORY: Negative for:Shortness of breath GASTROINTESTINAL: Negative for:Blood in stool MUSCULOSKELETAL: Negtive for: Muscle or joint pain, stiffnes s, Joint swelling SKIN: No rash HEMATOLOGICAL/LYMPHATIC: Negative for: Easy bruising and Eas y bleeding CARDIOVASCULAR: As stated in HPI. 10 system review negative except as stated in HPI PHYSICAL EXAMINATION: BP 135/86 Pulse 107 Temp (Src) 98.6 (Oral) Resp 17 H t 5' 5 (1.65m) Wt 277 lb (125.6kg) SpO2 95% BMI 46.10 kg/(m2) . O2 Therapy: Room Air No pulsus paradoxus General: Well appearing, in no acute distress, speaking in c omplete sentences., Well appearing. Psych: Normal Affect Eyes: No subconjunctival hemorrhage Skin: No rash, bruising Oropharynx: Mucous membranes normal Neck: - jugular venous distention, no carotid bruits. Kussma ul's sign - Lymph: No cervical lymphadenopathy Lungs: Clear to auscultation bilaterally, no wheezing or rho nchi. Heart: S1, S2 normal, no murmur Extremities: Trace peripheral edema Neuro: Grossly nonfocal LABS: Past 72 Hour Labs: Recent Labs 04/27/19 0135 WBC 6.18 RBC 3.50* HB 9.9* HCT 30.7* MCV 87.7 MCH 28.3 MCHC 32.2 PLT 101* MPV 12.1 GLUC 269* BUN 24* CREAT 0.61 NA 138 K 4.5 CHLOR 107 CO2 25 TPROT 6.2* ALB 2.7* CA 8.0* ALKPHOS 64 TBILI 0.4 AST 15 ALT 24 MG 1.4* No results found for: TROPI] No results found for: PBNP Last Lab Drawn: TSH 3.810 07/09/2014 ECHO: CONCLUSIONS: - Exam indication: Re-evaluation of known pericardial effusi on to guide management ?/ therapy - The left ventricle is normal in size. There is moderate co ncentric left ventricular hypertrophy. Left ventricular systolic function is normal. EF = 63 ? 5% (2D biplane) Normal left ventricular diastolic function. - The right ventricle is normal in size. Right ventricular s ystolic function is normal. - There are no significant valvular abnormalities. - There is moderate circumferential pericardial effusion. - There is no tamponade physiology seen. - Exam was compared with the prior echocardiographic exam performed on 03/08/19 (ECHO). Effusion appears to be bigger. Impression/Recommendations Recurrent pericardial effusion? Likely 2/2 SLE Hemodynamically stable Hx of provoked (OCP use) PE on anticoagulation Hx of cardiomyopathy HTN T2DM Depression Pericardial effusion: POA Yes Assessment and plan: The patient should be on strict I/O, da carley weights, CHF diet. - The exact etiology of the patient's pericardial effusion i s likely 2/2 SLE. I will start her workup with some labs including ESR, C RP. - As described above, the patient was found to have a medium pericardial effusion. The echocardiographic data did not suggest evidenc e of tamponade - The patient is not a candidate for immediate fluid drainag e. She will be observed on Telemetry. - Suggest repeating a limited echocardiogram in 24-48 hours to reevaluate the effusion. - In Anticipation of drainage requirement, I asked the RN to hold off on giving eliquis pending discussion with Dr. Blount, I discusse d with the patient. Addendum: Discussed with Dr. Blount, does not need drainage f or now. We will resume eliquis. - Continue naprosyn and colchicine I personally saw and evaluated the patient. Discussed with [facility]. I agree with resident's findings and plan as documented in [facility] resident's note, unless noted otherwise. Follow-up with transthoracic echocardiogram. Clinically, she does not have any pulsus paradoxus/jugular venous distention. I extreme to her that her recurrent pericardial effusions are likely secondary to lupu s. She claimed that she did not have any refills beyond one month for colch icine. She also did not follow-up with her lace mender carolyn Hamiltonugh she was advised to do that at discharge. I emphasized the importance of compliance with the indications including Naprosyn, colchicine. Also as ked her to follow-up closely with her lip cutter agreed to lupus. I will wait for the results of the echocardiogram. By clinical exam, I do no t think that she needs pericardiocentesis this time. Okay to resume Eliqu is. SIGNATURE: Sandy Reina MD PATIENT NAME: Mavis Franco DATE: April 27, 2019 TIME: 9:41 AM PAGER/CONTACT #: [phone] comprehensive panel on 2019-04-27 ALP [Catalytic activity/Vol] 64 45-117 U/L Normal 0 04-27-2019 [facility] (00 000) Comment: Performed By: #### GFR #### [address], [place] [address] Bilirubin [Mass/Vol] 0.4 0.2-1.0 mg/dL Normal 9 [facility] ([id number]) Comment: Performed By: #### GFR #### [facility] [address] [place], [place] [address] Protein [Mass/Vol] 6.2 6.4-8.2 g/dL Low 04-27-2019 [facility] (11035) Comment: Performed By: #### GFR #### [facility] [address] [place], [place] [address] Creatinine [Mass/Vol] 0.61 0.51-0.95 mg/dL Normal 04-27-20 19 [facility] (00 000) Comment: Performed By: #### GFR #### [facility] [address] [place], [place] [address] ALT [Catalytic activity/Vol] 24 12-78 U/L Normal 0 04-27-2019 [facility] (00 000) Comment: Performed By: #### GFR #### [facility] [address] [place], [place] [address] AST [Catalytic activity/Vol] 15 15-37 U/L Normal 0 04-27-2019 [facility] (00 000) Comment: Performed By: #### GFR #### [facility] [address] [place], [place] [address] Albumin [Mass/Vol] 2.7 3.4-5.0 g/dL Low 04-27-2019 [facility] ([id number]) Comment: Performed By: #### GFR #### [facility] [address] [place], [place] [address] Anion gap [Moles/Vol] 11 8-16 mmol/L Normal 04-27-20 19 [facility] (76098) Comment: Performed By: #### GFR #### [facility] [address] [place], [place] [address] Calcium [Mass/Vol] 8.0 8.5-10.1 mg/dL Low 04-27-2019 [facility] (50201) Comment: Performed By: #### GFR #### [facility] [address] [place], [place] [address] CO2 [Moles/Vol] 25 21-32 mEq/L Normal 04-27-2019 [facility] ([id number]) Comment: Performed By: #### GFR #### [facility] [address] [place], [place] [address] Glucose [Mass/Vol] 269 70-99 mg/dL High 04-27-2019 [facility] (70414) Comment: Performed By: #### GFR #### [facility] [address] [place], [place] [address] Urea nitrogen [Mass/Vol] 24 7-18 mg/dL High 04-27 [facility] ([id number]) Comment: Performed By: #### GFR #### [facility] [address] [place], [place] [address] Chloride [Moles/Vol] 107 98-107 mEq/L Normal 9 [facility] (32979) Comment: Performed By: #### GFR #### [facility] [address] [place], [place] [address] Potassium [Moles/Vol] 4.5 3.5-5.1 mEq/L Normal 04-27-20 19 [facility] (54222) Comment: Performed By: #### GFR #### [facility] [address] [place], [place] [address] Sodium [Moles/Vol] 138 136-145 mEq/L Normal 04-27-2019 [facility] (09131) Comment: Performed By: #### GFR #### [address] [address] case mgt init asses on 2019-04-27 CASE MGT INIT HNO ID: [id number] Normal 019 [facility] Author: Aggie OneillRn) [facility] Service: Care Management ([id number]) Author Type: Registered Nurse Type: Care Mgt Initial Assessment Filed: 04/27/2019 12:09 PM Note Text: CARE MANAGEMENT: ASSESSMENT AND DISCHARGE PLAN SERVICE DATE: 04/27/2019 SERVICE TIME: 12:05 PM PRIMARY CARE PHYSICIAN: Nabeel Sanders DO ADMISSION STATUS: Inpatient Needs Prior to Discharge: None 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 No Advance Directive: Current Advance Directive: None Travel Pt Attempted to Assist with AD Completion: No Unable to Assist Due To:: Other: See Comment(Pt currently re fusing. ) Health Literacy: 1. How often do you need to have someone help you when you r ead instructions, pamphlets, or other written material from your doctor or pharmacy? Never - 1 2. How confident are you filling out medical forms by yourse lf? Extremely - 1 If Patient scores > 3 on either question, the following inte rventions were put into place: Patient did not score > 3 FUNCTIONAL AND COGNITIVE/BEHAVIORAL PRIOR TO ADMISSION: Baseline Mental Status: Alert AND Oriented, Person, Place , Time and Situation Functional Status: Independent Does Patient Currently Receive Any Community Services or Critical access hospital Care? None Equipment Prior to Admission: BP cuff Has the Patient Been in a Penitentiary Facility in the [facility] 30 days? No SOCIAL: Living Arrangement: Home Lives With: 2 children Financial Resources: Employed: . Primary Contact: Extended Emergency Contact Information Primary Emergency Contact: Gisell Desir Mobile Relation: Sister Supportive: Yes Other Important Patient Contacts: None Caregiver Assessment: Caregiver is ready, willing and able to meet the patient's n eeds as recommended by the inter-professional team? No Caregiver Nee ded Patient's transition needs and plan for meeting these needs: . Does the patient have an acute stroke diagnosis, or has the patient had a stroke during this admission? No Medication Adherence: I am convinced of the importance of my prescription medicati on: Agree mostly - 0 I worry that my prescription medication will do more harm th an good to me Disagree mostly - 0 I feel financially burdened by my [id number] expenses for my prescription medication: Disagree mostly -0 Patient is categorized as low risk < 2 Are you interested in bedside delivery of your medications? Yes Food Concerns: In the Last Month, Have You had Trouble Getting Food? No tro uble getting food During the Last Month, Have You Worried Whether Your Food Wo uld Run Out Before You Had Enough Money to Buy More? No Is the Patient Psychosocially Complex? No ASSESSMENT AND PLAN: Medical Needs: None Psychosocial Needs: None FREEDOM OF CHOICE EXPLAINED: N/A POTENTIAL TRANSITION PLANS Home Spoke with pt at the bedside. Pt lives at home with her 2 annetta bowers. Pt indept FINGERNAIL FORMER. No needs noted currently. Will follow. SIGNATURE: Aggie Humphrey RN PATIENT NAME: Kendra Franco DATE: April 27, 2019 TIME: 12:05 PM PAGER/CONTACT #: [phone] pastor cbc and diff on 2019-03-16 Erythrocyte distribution 14.7 11.5-15.0 % Normal 03-16 [facility] width Ratio (RBC) Cl robin (33352) Comment: Performed By: #### GASPCR ## ## [address] [address] Hematocrit Volume Fraction 32.7 36.0-46.0 % Low [facility] (Bld) (46217) Comment: Performed By: #### GASPCR ## ## [facility] [place], [place] [address] Hemoglobin mass conc (Bld) 11.0 11.5-15.5 g/dL Low [facility] (78267) Comment: Performed By: #### GASPCR ## ## [address] [address] Lymphocytes/100 WBC (Bld) 3 % Normal -3 -2018 [facility] (84600) Comment: Performed By: #### GASPCR ## ## [facility] [place], [place] [address] MCH Entitic mass (RBC) 28.6 26.0-34.0 pg Normal 03-16-2 019 [facility] (60309) Comment: Performed By: #### GASPCR ## ## [facility] [address] [address] MCHC mass conc (RBC) 33.6 30.5-36.0 g/dL Normal 9 [facility] (48281) Comment: Performed By: #### GASPCR ## ## [place] [phone] MCV Entitic volume 85.2 80.0-100.0 fL Normal 03-16-2019 [facility] (RBC) [place] ([address]) Comment: Performed By: #### GASPCR ## ## [place] [phone] RBC #/vol (Bld) 3.84 3.90-5.20 m/uL Low 03-16-2019 [facility] (56900) Comment: Performed By: #### GASPCR ## ## [place] [phone] WBC #/vol (Bld) 5.26 3.70-11.00 k/uL Normal 03-16-2019 [facility] (29510) Comment: Performed By: #### GASPCR ## ## [place] [phone] Pastor Abs Lymp 0.16 1.00-4.00 k/uL Low 03-16-2019 [facility] (28161) Comment: Performed By: #### GASPCR ## ## [place] [phone] Pastor Abs [place] 0.32 <0.87 k/uL Normal 03-16-2019 [facility] (33796) Comment: Performed By: #### GASPCR ## ## [place] [phone] [place] Abs Neut 4.79 1.45-7.50 k/uL Normal 03-16-2019 [facility] (84334) Comment: Performed By: #### GASPCR ## ## [address] [place], [place] [id number] [place]% 6 % Normal 03-16-2019 [facility] (00544) Comment: Performed By: #### GASPCR ## ## [facility] [address] [place], [place] [id number] [place] Neut% 91 % Normal 03-16-2019 [facility] (87713) Comment: Performed By: #### GASPCR ## ## [facility] [address] [place], [place] [address] Pastor Platelet Cnt 116 150-400 k/uL Low 9 [facility] (95739) Comment: Result Comment: Result check ed and verified No clot detected. Performed By: #### GASPCR ## ## [facility] [address] [place], [place] [address] [place] Platelet Est Platelet estimate Normal 0 03-16-2019 [facility] ([id number]) Comment: Result Comment: Occasional Giant Platelets Performed By: #### GASPCR ## ## [facility] [address] [place], [place] [address] Pastor RBC Morph Anisocytosis Normal 9 [facility] (76627) Comment: Performed By: #### GASPCR ## ## [facility] [address] [place] [address] progress on 2019-02 Protein mass conc HNO ID: [id number] Normal [facility] Author: Jacky Madrid [place] ([id number]) Service: ? Author Type: Physician Type: Progress Notes Filed: 03/17/2019 4:53 PM Note Text: Diagnosis: 1) Thrombocytopenia. HPI: Patient is 33-year-old female with a past medical histo ry significant for psoriatic arthritis. She had been following with a rheum atologist for about 5 years. Previously was on Humira. For the last 6 han hs or so prior to initial consultation at [facility], she had been on Cosentyx. Th e psoriatic plaques she had were on the scalp and Humira did not help th ose. Since being on Cosentyx, lesions have cleared. Patient was seen in consultation at [facility] a week before last for thrombocytopenia. Please see Dr. Naylor's consu lt note there for details. Last seen here 04/2018. Presents for hospital follow up. Interim history: Was on belimumab for about 6 weeks. Was evaluated in the emergency department at [facility] on 01/19/2019 for complaints of shortness of breath. Symptoms was associated with a cough that was nonproductive. She also had mild sore throat without other symptoms of upper respiratory tract infection. Due to her history of lupus and cardiomyopathy, a chest x-ray was compl eted which showed evidence of cardiomegaly and a subsequent bedside ult rasound demonstrated no pericardial effusion. Patient was given a do se of dexamethasone in the ER and discharged with instructions to take Mucinex and follow-up with her primary care physician. Returned to the ED on 02/14 with complaint of fever and short ness of breath. Symptoms again had come on over the course of a day or 2. Temperature was low-grade up to 100?F. However she had short ness of breath on exertion that progressed to call shortness of breath at r est. She continued to have a dry cough and developed weakness and mor e fatigued. There was vague left-sided chest pain. It was aggravated by taking a deep breath. She was noticed to be febrile, tachycardic with a pu lse ox 98% on room air. She had a white blood cell count of 0.7, hemoglobi n of 11 and a platelet count of 58,000 on presentation. Albumin was 1.9. A CTA of the chest revealed several nonocclusive small intra luminal filling defects in branches of the left upper lobe pulmonary artery. Repeat 2-D transthoracic echocardiogram performed on 02/15/20 19 demonstrated a normal LV size with moderate concentric LVH. The ventricular systolic function was normal with estimated ejec tion fraction 60%. The right ventricle was noted to be normal in size and systolic function. There was a small pericardial effusion observed. T here were no echocardiographic findings of tamponade not. She was admitted for acute left upper lobe small nonocclusiv e pulmonary emboli, left lower lobe healthcare associated pneumonia in t he setting of neutropenic fever and thrombocytopenia. Patient was seen in consultation by infectious disease specialist who did not feel that the p atient had pneumonia. Over the next 48 hours, white blood cell count in creased. Oxygen was not required. Platelet count at the time of disch arge on 02/16 was 74,000. The total white blood cell count was 2500 with a neutrophil count of 1700. Duplex ultrasound was performed of both legs on 02/16/2019 prior to discharge. No evidence of deep vein thrombosis was observed. Patient was started on anticoagulation with Eliquis 10 mg tw ice a day. She was maintained on prednisone 10 mg daily at that time of discharge. She will return to the ED pleuritic chest pain and worsening dyspnea. Bedside echocardiogram demonstrated essentially worsening ef fusion. Patient was transferred to [facility]. On presentation there echocardiogram demonstrated large circ umferential pericardial effusion measuring 4.9 cm with an LVEF of 55%. Pericardiocentesis was performed. 200 mL's of a large serous infusion were drained on 03/06/2019. Symptoms improved. She was started on colchicine and naproxen. She was noted to have low C3 and C4 as well as shane vated CRP and sedimentation rate. Prednisone was increased to 60 mg daily with plan for outpatient taper. Eliquis was resumed after pericardiocentes is. Platelet count was noted to improve throughout that hospitalization a s well. There was no unusual bleeding. For blood pressure increased to 174 /114 she was started on amlodipine 5 mg daily. She reports today that her breathing feels much better. She is no longer having chest pain or pressure. No palpitations. She's not brandon d cough or hemoptysis. No pleuritic chest pain. No unusual bleeding or unexplained bruising. Menses--not heavy. Occasional blood on toilet tiss ue after wiping following harder stool. No oral aphthous ulcers. Joint pain absent while on predniso ne. No recent rash. 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 PMH, medications and allergies personally reviewed by me barbara haji. Any changes documented in appropriate section. ROS: Constitutional: No fever since discharge. No night sweats. Neuro: Denies BRANDON, vertigo, dizziness and imbalance. HEENT: No recent change in voice, vision or hearing. Resp: See above. CVS: Denies exertional chest pain, PND, orthopnea and LE ora ma. GI: Denies dysgeusia. Denies symptoms of stomatitis. Denies dysphagia and odynophagia. Denies change in bowel habits and abdominal joann n. : Denies dysuria or gross hematuria. No symptoms of bladde r outlet obstruction. Endo: Denies hot flashes. Denies polyuria and polydipsia. De nies heat and cold intolerance. MS: No pain no while on prednisone. When off therapy, finger s and sometimes shoulders hurt. Derm: Denies jaundice and diffuse pruritis. Heme: See above. Psych: Normal mood. PHYSICAL EXAM: Vitals: Blood pressure 136/101, pulse 106, temperature 36.2 ?C (97.1 ?F), temperature source Temporal, weight 123.8 kg (273 lb). Well-appearing and in no acute distress. EYES: Sclerae are anicteric bilaterally. ENT: Oral mucosa is unremarkable. There is no sign of thrush or mucositis. NECK: Supple. LYMPHATIC: There is no palpable cervical or supraclavicular adenopathy. RESPIRATORY: Inspiratory breath sounds are of normal diminis hed, but clear intensity in all royal. No rales, wheezes or rhonchi. CARDIOVASCULAR: Rhythm is regular. Normal intensity S1/S2. N o rub. ABDOMEN: The abdomen is nondistended. No tenderness. No sple nomegaly. Extremities: No swelling or edema. SKIN: No petechiae. NEUROLOGIC: manager staffing II-XII are grossly intact. No focal motor we akness. ASSESSMENT/PLAN: (D69.3) Chronic ITP (idiopathic thrombocytopenia) (HCC) ([facility] encounter diagnosis) Assessment: -Increase in platelet count once started prednisone secures the diagnosis of ITP. -Her lip cutter would like to start her on mycophenolate --No contraindication to this. In fact she will need some sort of immunosuppressant therapy long-term to help manage the throm bocytopenia. IVIG and thrombopoietin receptor agonists need to be avoided due to her recent pulmonary embolism. Plan: -CBC today and in a month. -Will contact her lip cutter. (I27.82) Other chronic pulmonary embolism without acute cor pulmonale (HCC) Assessment: -Unprovoked PE. -No associated DVT. -She is tolerating anticoagulation well with no unusual blee ding or unexplained bruising. -Main issue currently is duration of anticoagulation. Since it is unclear as to whether or not there might be an acquired thrombophili c condition, i.e. lupus anticoagulant I recommend 3-6 months of anticoagu lation then stopping for several days in order to obtain appropriate carlo ting. If nos positive for ACL or has developed LA then indefinite anticoa gulation. Plan: -Continue Eliquis 5 mg twice a day for now. -Reevaluate in 3 months. Jacky Madrid DO cnovsp on 2019-02-17 0 CNOVSP Visit (SP) Office (LUIS) Normal [place] [facility] KENDRA FRANCO ([id number]) 1985 [facility] Date Time Provider Department ([id number]) 03/16/19 3:00 PM JACKY MADRID During your visit today, we recorded the following informati on about you: Temperature Pulse Blood pressure Weight 97.1 degrees 106/minute 136/101 123.8 kg Ruma Tran LPN 03/16/2019 3:34 PM Signed Est patient. Recently discharged from for pericardial eff usion. Here to discuss low platelet count. BP elevated, checked three times- 136/101, 141/106 and 144/104. Encouraged to follow up with PCP. Ruma Madrid DO 03/17/2019 4:53 PM Signed Diagnosis: 1) Thrombocytopenia. HPI: Patient is 33-year-old female with a past medical history significant for psoriatic arthritis. She had been following with a lip cutter for about 5 years. Previously was on Humira. For the last 6 months or so prior to initial consultation at [facility], she had been on Cosentyx. The pso riatic plaques she had were on the scalp and Humira did not help those. Since being on Cosentyx, lesions have cleared. Patient was seen in consultation at [facility] a week before last for thrombocytopenia. Zora mcdowell see Dr. Naylor's consult note there for details. Last seen here 04/2018. Presents for hospital follow up. Interim history: Was on belimumab for about 6 weeks. Was evaluated in the emergency department at [facility] on 01/19/2019 for complaints of shortness of breath. Symptoms was associated with a cough that was nonproductive. She also had mild sore throat without other symptoms of upper respiratory tract infe ction. Due to her history of lupus and cardiomyopathy, a chest x-ray was completed which showed evidence of cardiomegaly and a subsequent bedside ultrasound demon strated no pericardial effusion. Patient was given a dose of dexamethasone in the ER and discharged with instructions to take Mu cinex and follow-up with her primary care physician. Returned to the ED on 02/14 with complaint of fever and monica rtness of breath. Symptoms again had come on over the course of a day or 2. Te mperature was low-grade up to 100?F. However she had shortness of breath on exertion that progressed to call shortness of breath at rest. She contin ued to have a dry cough and developed weakness and more fatigued. There was va volodymyr left-sided chest pain. It was aggravated by taking a deep breath. She was noticed to be febrile, tachycardic with a pulse ox 98% on room air. She had a white blood cell count of 0.7, hemoglobin of 11 and a platelet count of 58,000 on presentation. Albumin was 1.9. A CTA of the chest revealed several nonocclusive small int raluminal filling defects in branches of the left upper lobe pulmonary artery. Repeat 2-D transthoracic echocardiogram performed on 02/14/2019 de monstrated a normal LV size with moderate concentri c LVH. The ventricular systolic function was normal with estimated ejection fraction 60%. The right ventricle wa s noted to be normal in size and systolic function. There was a smal l pericardial effusion observed. There were no echocardiographic findings of tampon ludwig not. She was admitted for acute l eft upper lobe small nonocclusive pulmonary emboli, left lower lobe healthcare associated pneumonia in the setting of neutropenic fever and thrombocytopenia. Patient was seen in consultation by infectious disease specialist who did not feel that the patient h ad pneumonia. Over the next 48 hours, white blood cell count increased. Oxygen was not required. Platelet count at the time of discharge on 02/16 was 74,000. T he total white blood cell count was 2500 with a neutrophil count of 1 700. Duplex ultrasound was performed of both legs on 02/16/2019 p rior to discharge. No evidence of deep vein thrombosis was observed. Patient was started on anticoagulation with Eliquis 10 mg tw ice a day. She was maintained on prednisone 10 mg daily at that time of discharge. She will return to the ED pleuritic chest pain a nd worsening dyspnea. Bedside echocardiogram demonstrated essentially worsening effusion. Patient was transferred to [facility]. On presentation there echocardiogram demonstrated large circ umferential pericardial effusion measuring 4.9 cm with an LV EF of 55%. Pericardiocentesis was performed. 200 mL's of a large serous infusi on were drained on 03/06/2019. Symptoms improved. She was s tarted on colchicine and naproxen. She was noted to have low C3 and C4 as well as elevated CRP and s edimentation rate. Prednisone was increased to 60 mg daily with plan for outpatient taper. Eliquis was resumed after pericardiocentesis. Platelet count was noted t o improve throughout that hospitalization as well. There was no unus ual bleeding. For blood pressure increased to 174/114 she was star andres on amlodipine 5 mg daily. She reports today that her b reathing feels much better. She is no longer having chest pain or pressure. No palpitations. She's not had cough or hemoptysis. No pleuritic chest pain. No unusual bleedin g or unexplained bruising. Menses--not heavy. Occasional blood on toilet tissue after w iping following harder stool. No oral aphthous ulcers. Amie nt pain absent while on prednisone. No recent rash. 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 PMH, medications and allergies personally reviewed by me félix griffith. Any changes documented in appropriate section. ROS: Constitutional: No fever since discharge. No night sweats. Neuro: Denies BRANDON, vertigo, dizziness and imbalance. HEENT: No recent change in voice, vision or hearing. Resp: See above. CVS: Denies exertional chest pain, PND, orthopnea and LE ora ma. GI: Denies dysgeusia. Denies symptoms of stomatitis. Denies dysphagia and odynophagia. Denies change in bowel habits and abdominal joann n. : Denies dysuria or gross hematuria. No symptoms of bladde r outlet obstruction. Endo: Denies hot flashes. Denies polyuri a and polydipsia. Denies heat and cold intolerance. MS: No pain no while on prednisone. When off therapy, fing ers and sometimes shoulders hurt. Derm: Denies jaundice and diffuse pruritis. Heme: See above. Psych: Normal mood. PHYSICAL EXAM: Vitals: Blood pressure 136/101, pulse 106, temperature 36.2 ?C (97.1 ?F), temperature source Temporal, weight 123.8 kg (273 lb). Well-appearing and in no acute distress. EYES: Sclerae are anicteric bilaterally. ENT: Oral mucosa is unremarkable. There is no sign of thrush or mucositis. NECK: Supple. LYMPHATIC: There is no palpable cervical or supraclavicular adenopathy. RESPIRATORY: Inspiratory breath sounds are of normal diminis hed, but clear intensity in all royal. No rales, wheezes or rhonchi. CARDIOVASCULAR: Rhythm is regular. Normal intensity S1/S2. N o rub. ABDOMEN: The abdomen is nondistended. No tenderness. No sple nomegaly. Extremities: No swelling or edema. SKIN: No petechiae. NEUROLOGIC: manager staffing II-XII are grossly intact. No focal motor we akness. ASSESSMENT/PLAN: (D69.3) Chronic ITP (idiopathic thrombocytopenia) (HCC) (marylu matson encounter diagnosis) Assessment: -Increase in platelet count once started prednisone se cures the diagnosis of ITP. -Her lip cutter would like to start her on mycophenolate --No contraindication to this. In fact she wi ll need some sort of immunosuppressant therapy long-term to help manage the thr ombocytopenia. IVIG and thrombopoietin receptor agonists need to be avoided due to her recent pulmo nary embolism. Plan: -CBC today and in a month. -Will contact her lip cutter. (I27.82) Other chronic pulmonary embolism without acute co r pulmonale (HCC) Assessment: -Unprovoked PE. -No associated DVT. -She is tolerating anticoagu lation well with no unusual bleeding or unexplained bruising. -Main issue currently is dur ation of anticoagulation. Since it is unclear as to whether or not there might be an acquired thromb ophilic condition, i.e. lupus anticoagulant I recommend 3-6 months of anticoagulation then stopping for several days in order to obt ain appropriate testing. If nos positive for ACL or has developed LA then indefinite anticoagulation. Plan: -Continue Eliquis 5 mg twice a day for now. -Reevaluate in 3 months. Jacky Madrid DO Referring Provider: JACKY MADRID [[id number]] Allergies As of Date: 03/16/2019 Noted Allergy Reaction CODEINE 01/12/2012 8 - GI Upset Comments: States sharp stomach pains DOXYCYCLINE 07/28/2011 4 - Hives PERCOCET (OXYCODONE-ACETAMINOPHEN)07/22/2011 4 - Hives 10 - Anaphylaxis CLINDAMYCIN 05/09/2018 2 - Rash MORPHINE 10/21/2017 7 - Swelling Comments: uvula swelling PENICILLINS 11/28/2009 2 - Rash Date Reviewed: 03/16/2019 Reviewed by: Ruma Tran LPN - Fully Assessed Reason for Visit: Established Patient [175] Primary Visit Diagnosis:Shaper Operator cecy ITP (idiopathic thrombocytopenia) (HCC) [D69.3] Other Visit Diagnoses:Thrombocytopenia (HCC) [D69.6] Other chronic pulmonary embolism without acute cor pulmonale (HCC) [I27.82] Order(s):PASTOR CBC AND DIFF [[id number]] Order #: [id number] FUTURE Follow-up and Disposition History Recorded Prescriptions as of 03/16/2019 Sig: BENLYSTA SUBCUTANEOUS Inject subcutaneously once ea* ACETAMINOPHEN 500 MG TABLET Take 1 tablet by mouth every * AMLODIPINE 5 MG TABLET Take 1 tablet by mouth once d* CALCIUM CARBONATE 200 MG CALC* Take 1 tablet by mouth twice * COLCHICINE 0.6 MG TABLET Take 1 tablet by mouth twice * PANTOPRAZOLE 40 MG TABLET,DEL* Take 1 tablet by mouth DAILY * NAPROXEN 500 MG TABLET 500 mg oral BID for 5 days th* PREDNISONE 10 MG TABLET 60mg oral daily for 1 week, 5* DULOXETINE 30 MG CAPSULE,KRISTOPHER* Take 30 mg by mouth twice javi * FUROSEMIDE 20 MG TABLET Take 20 mg by mouth as needed* APIXABAN 5 MG TABLET Take 5 mg by mouth twice susan* BIOTIN ORAL Take 1 tablet by mouth once d* Problem List As Of Date 03/16/2019 Noted Resolved Supervision of Other High-Risk [O09.8*INVALID FOR* 01/27/2010 Routine general medical examination at a [facility] [place]*INVALID FOR* 10/13/2011 Class: Chronic More... Routine gynecological examination [Z01.419] INVALID FOR*09/18 Class: Chronic More... Cardiomyopathy, peripartum, [O90.3] INVALID FOR* More... TRAMAINE (generalized anxiety disorder) [F41.1] INVALID FOR* Impaired glucose tolerance [R73.02] INVALID FOR*04/11/2014 Lichen simplex chronicus [L28.0] INVALID FOR* Dyspareunia [KZQ4884] INVALID FOR*04/11/2014 Pelvic cramping [R10.2] INVALID FOR*04/11/2014 Complex ovarian cyst [N83.299] INVALID FOR*04/11/2014 History of [Z98.891] INVALID FOR*04/11/2014 More... History of macrosomia in infant in prior pregna*INVALID FOR* 12/13/2017 More... Obesity, unspecified [E66.9] INVALID FOR*04/11/2014 More... History of depression [Z86.59] INVALID FOR* More... History of bronchitis [Z87.09] INVALID FOR*04/11/2014 More... Frequency of urination [R35.0] INVALID FOR* More... Elevated glucose [R73.09] INVALID FOR*04/11/2014 More... Maternal atypical antibody complicating pregnan*INVALID FOR* 04/11/2014 More... Gestational diabetes mellitus, antepartum [O24.*INVALID FOR* 04/11/2014 Antepartum multigravida of advanced maternal ag*INVALID FOR* 12/13/2017 More... History of delivery, currently pregnan*INVALID FOR* 12/13/2017 More... Morbid obesity (HCC) [E66.01] INVALID FOR* History of gestational diabetes in prior pregna*INVALID FOR* 12/13/2017 More... History of lupus (HCC) [M32.9] INVALID FOR* More... Pancytopenia (HCC) [D61.818] INVALID FOR* Pericardial effusion [I31.3] INVALID FOR* History of cardiomyopathy [Z86.79] INVALID FOR* History of pulmonary embolism [Z86.711] INVALID FOR* More... Pericardial tamponade [I31.4] INVALID FOR* Thrombocytopenia (HCC) [D69.6] INVALID FOR* Obesity, Class III, BMI >= 40 [E66.01] INVALID FOR* Malnutrition of mild degree (HCC) [E44.1] INVALID FOR* SLE exacerbation (HCC) [M32.9] INVALID FOR* Pericarditis [I31.9] INVALID FOR* Hypertension [I10] INVALID FOR* Visit Notes: >> Ruma Tran LPN [facility] March 16, 2019 3:04 PM Status: Melissa son Est patient. Recently discharged from for pericardial eff usion. Here to discuss low platelet count. BP elevated, checked three times - 136/101, 141/106 and 144/104. Encouraged to follow up with PCP. Ruma Tran LPN Encounter Status:Closed by JACKY MADRID DO on 03/17/19 plan of care on 06-22-24 PLAN OF CARE HNO ID: [id number] [place] [facility] Author: Gisela Tolentino (Pharmacist) [facility] Service: Pharmacy (0 [phone]) Author Type: Pharmacist Type: Plan of Care Filed: 03/10/2019 1:22 PM Note Text: DISCHARGE MEDICATION REVIEW AND COUNSELING BY PHARMACY Patient Name: Kendra Franco Account #: Data Unavailable Admission Date: 03/05/2019 Date of Contact: March 10, 2019 Time of Contact: 1:19 PM LEARNERS Persons Present: Patient Primary Learner: Patient Medication list was reviewed by a Pharmacist for drug intera ctions or drug related problems:Yes The patient was counseled on the medication(s) listed below and was given the opportunity to ask questions regarding indication, dosag e, side effects and drug interactions READINESS TO LEARN COGNITIVE ABILITY:Alert and oriented MOTIVATION TO LEARN:Interested FAMILY SUPPORT:Unable to assess - Family not present INSTRUCTION PROVIDED TO:Patient PATIENT LEARNS BEST BY:Individual Instruction Verbal Instruction FACTORS AFFECTING LEARNING:None PHYSICAL LIMITATIONS AFFECTING LEARNING:None LEARNING RESPONSE PATIENT / FAMILY RESPONSE:Verbalizes understanding of: The s igns and symptoms of a worsening condition that warrant a call to the physician. The correct actions to take to manage symptoms associated wi th his/her disease/illness. The physical restrictions and recommendations after discharg e from the hospital. Accurate knowledge of prescribed medication prior to dischar ge. The correct action to take if medication dose is missed. The side effects associated with the medication that warrant a call to the physician. Post discharge follow up instruction Discussed duration of naproxen with MD Apple, he states cardiology ok with continuing for 5 more days for pericarditis. Prednisone RX unable to be e-scribed due to length of direct ions, patient requesting it be called in so it is ready before she gets th ere. Called in RX with OK from MD. RX for colchicine is 0$ copay per pharmacist at [facility]. EXT [id number] GISELA TOLENTINO, PHARMACIST March 10, 2019 1:19 PM Medication List START taking these medications acetaminophen 500 mg tablet Commonly known as: TYLENOL Take 1 tablet by mouth every 8 hours as needed for Pain. amLODIPine 5 mg tablet Commonly known as: NORVASC Take 1 tablet by mouth once daily. Start taking on: 03/11/2019 calcium carbonate 500 mg Chew Commonly known as: TUMS Take 1 tablet by mouth twice daily as needed (heartburn). colchicine 0.6 mg tablet Take 1 tablet by mouth twice daily. naproxen 500 mg tablet Commonly known as: NAPROSYN 500 mg oral BID for 5 days then as needed. pantoprazole DR 40 mg tablet Commonly known as: PROTONIX Take 1 tablet by mouth DAILY (6 AM). Start taking on: 03/11/2019 CHANGE how you take these medications predniSONE 10 mg tablet Commonly known as: DELTASONE 60mg oral daily for 1 week, 50 mg daily for 1 week, 40 mg da carley for 1 week, 30 mg daily for 1 week, 20 mg daily for 1 week then co ntinue on 10 mg daily. What changed: ? how much to take ? how to take this ? when to take this ? reasons to take this ? additional instructions CONTINUE taking these medications apixaban 5 mg tab(s) Commonly known as: ELIQUIS BIOTIN ORAL DULoxetine 30 mg capsule Commonly known as: CYMBALTA furosemide 20 mg tablet Commonly known as: LASIX Where to Get Your Medications These medications were sent to e- [facility]/pharmacy #[id number] - [place] [address] - [address] [facility]. [phone] [facility] [phone] [facility] [address] ? acetaminophen 500 mg tablet ? amLODIPine 5 mg tablet ? calcium carbonate 500 mg Chew ? colchicine 0.6 mg tablet ? naproxen 500 mg tablet ? pantoprazole DR 40 mg tablet ? predniSONE 10 mg tablet mdrd gfr on 2019-02 GFR/1.73 sq M >60 >60mL/min/1.73m2 mL/min/{1.73_m2} Normal [facility] non-blacks MDRD (000 00) (S/P/Bld) [Vol rate/Area] Comment: Result Comment: If the patie nt is , multiply the result by 1.210. Performed By: #### GFR #### [address] [address] hemogram/diff on 05-03-24 Abs Immature Grans 0.06 0.00-0.05 thou/cmm High 03-10-2019 [facility] (00 000) Comment: Performed By: #### GFR #### [address] [address] Abs Neut (ANC) 3.71 1.56-6.13 thou/cmm Normal 03-10-2019 [facility] ([address]) Comment: Performed By: #### GFR #### [address] [address] Abs. Baso 0.00 0.01-0.08 thou/cmm Low 03-10-2019 [facility] ([address]) Comment: Performed By: #### GFR #### [address] [address] Abs. [place] 0.28 0.27-0.70 thou/cmm Normal 03-10-2019 [facility] ([address]) Comment: Performed By: #### GFR #### [address] [address] Basophils/100 WBC (Bld) 0.0 % Normal 2018 [facility] ([address]) Comment: Performed By: #### GFR #### [facility] [address] [place], [place] [address] Eosinophils (Bld) 0.00 0.00-0.31 thou/cmm Normal 03-10-2019 [facility] [#/Vol] [facility] ([address]) Comment: Performed By: #### GFR #### [facility] [address] [place], [place] [address] Eosinophils/100 WBC (Bld) 0.0 % Normal 02-16 [facility] ([address]) Comment: Performed By: #### GFR #### [address] [address] Erythrocyte distribution 13.7 11.7-14.4 % Normal 03-10 [facility] width (RBC) [Ratio] System ([address]) Comment: Performed By: #### GFR #### [address] [address] Hematocrit (Bld) [Volume 29.6 34.1-44.9 % Low 03-10 [facility] fraction] System (00 000) Comment: Performed By: #### GFR #### [facility] [address] [place], [place] [address] Hemoglobin (Bld) [Mass/Vol] 9.4 11.2-15.7 g/dL Low [facility] (00 000) Comment: Performed By: #### GFR #### [address] [address] Immature Grans 1.40 % Normal 03-10-2019 [facility] ([address]) Comment: Performed By: #### GFR #### [address] [address] Lymphocytes (Bld) [#/Vol] 0.17 1.18-3.74 thou/cmm Low 02-16 [facility] (00 000) Comment: Performed By: #### GFR #### [address] [address] Lymphocytes/100 WBC (Bld) 4.0 % Normal 02-16 [facility] ([address]) Comment: Performed By: #### GFR #### [facility] [address] [place] [address] MCH (RBC) [Entitic mass] 27.9 25.6-32.2 pg Normal 03-10 [facility] (00 000) Comment: Performed By: #### GFR #### [place] [address] MCHC (RBC) [Mass/Vol] 31.8 31.6-34.8 % Normal 03-10-20 19 [facility] ([address]) Comment: Performed By: #### GFR #### [place] [address] MCV (RBC) [Entitic vol] 87.8 79.4-94.8 fl Normal 2018 [facility] (00 000) Comment: Performed By: #### GFR #### [place] [address] Monocytes/100 WBC (Bld) 6.6 % Normal 2018 [facility] ([address]) Comment: Performed By: #### GFR #### [place] [address] Platelets (Bld) [#/Vol] 69 182-369 thou/cmm Low 2018 [facility] (00 000) Comment: Result Comment: Repeated AND verified Performed By: #### GFR #### [place] [address] RBC (Bld) [#/Vol] 3.37 3.93-5.22 mil/cmm Low 03-10-2019 [facility] [place] ([address]) Comment: Performed By: #### GFR #### [place] [id number] RDW SD 43.6 36.4-46.3 fl Normal 03-10-2019 [facility] ([address]) Comment: Performed By: #### GFR #### [place] [address] Seg Neutrophil 88.0 % Normal 03-10-2019 [facility] ([address]) Comment: Performed By: #### GFR #### [facility] [address] [place], [place] [address] WBC (Bld) [#/Vol] 4.22 3.98-10.04 thou/cmm Normal 03-10-2019 [facility] (00 000) Comment: Performed By: #### GFR #### [facility] [address] [place], [place] [address] basic panel on 2018 Creatinine [Mass/Vol] 0.80 0.51-0.95 mg/dL Normal 03-10-20 19 [facility] (00 000) Comment: Performed By: #### GFR #### [facility] [address] [place], [place] [address] Anion gap [Moles/Vol] 12 8-16 mmol/L Normal 03-10-20 19 [facility] ([address]160) Comment: Performed By: #### GFR #### [address] [address] CO2 [Moles/Vol] 23 21-32 mEq/L Normal 03-10-2019 [facility] ([id number]) Comment: Performed By: #### GFR #### [address] [address] Glucose [Mass/Vol] 157 70-99 mg/dL High 03-10-2019 [facility] (92962) Comment: Performed By: #### GFR #### [address] [address] Urea nitrogen [Mass/Vol] 28 7-18 mg/dL High 03-10 [facility] (24535) Comment: Performed By: #### GFR #### [address] [address] Calcium [Mass/Vol] 8.5 8.5-10.1 mg/dL Normal 03-10-2019 [facility] (63346) Comment: Performed By: #### GFR #### [address] [address] Chloride [Moles/Vol] 110 98-107 mEq/L High 9 [facility] (81683) Comment: Performed By: #### GFR #### [facility] [address] [place], [place] [address] Potassium [Moles/Vol] 4.5 3.5-5.1 mEq/L Normal 03-10-20 19 [facility] (83240) Comment: Performed By: #### GFR #### [facility] [address] [place], [place] [address] Sodium [Moles/Vol] 140 136-145 mEq/L Normal 03-10-2019 [facility] ([id number]) Comment: Performed By: #### GFR #### [facility] [address] [place], [place] [address] progress on 2019-02 PROGRESS HNO ID: [id number] Normal 03-09-2019 [facility] Author: Jean Apple [facility] Service: Hospital Medicine ([id number]) Author Type: Physician Type: Progress Notes Filed: 03/09/2019 5:59 PM Note Text: DEPARTMENT OF HOSPITAL MEDICINE PROGRESS NOTE SERVICE DATE: 03/09/2019 SERVICE TIME: 5:46 PM Hospital Medicine/Primary Attending: Jean Apple MD NIGHT AND WEEKEND COVERAGE: After 7pm please page [phone] CHIEF COMPLAINT: large pericardial effusion. SLE SUBJECTIVE: wants to go home. is very anxious and tearful. H is any chest pain or shortness of breath. No fever or chills OBJECTIVE: PHYSICAL EXAM: BP 163/111 Pulse 96 Temp (Src) 97.9 (Axil mary) Resp 18 Ht 5' 5 (1.65m) Wt 273 lb 14.4 oz (124.2kg) SpO2 9 4% BMI 45.58 kg/(m2). O2 Therapy: Room Air GENERAL: Alert, no distress, cooperative,morbidly obese. Tea rful and frustrated SKIN: Skin color, texture, turgor normal. malar rash OROPHARYNX: Lips, mucosa, and tongue normal. Teeth and gums normal. Oropharynx normal. LUNGS: Lungs clear to auscultation, Air entry good, Unlabore d breathing. CARDIAC: Normal S1 and S2; no rubs, murmurs, or gallops ABDOMEN: Abdomen soft, non-tender, non-distended, BS normal EXTREMITIES: Normal, no deformities, edema, clubbing or skin discoloration. NEURO: Grossly normal cognition, motor function, and cranial nerves III-XII MEDICATIONS: Current Facility-Administered Medications Medication Dose Route Frequency - naproxen 500 mg tab(s) (NAPROSYN) 500 mg ORAL BID - colchicine 0.6 mg tab(s) 0.6 mg ORAL BID - DULoxetine 30 mg cap(s) (CYMBALTA) 30 mg ORAL BID - melatonin 9 mg tab(s) 9 mg ORAL DAILY (8 PM) - pantoprazole DR 40 mg tab(s) (PROTONIX) 40 mg ORAL DAILY ( 6 AM) - acetaminophen 1,000 mg tab(s) (TYLENOL) 1,000 mg ORAL q 8 H PRN - apixaban 5 mg tab(s) (ELIQUIS) 5 mg ORAL BID - perflutren lipid microspheres 1.1 mg/mL 1.3 mL injection ( DEFINITY) 1.3 mL INTRAVENOUS DIRECTED PRN - predniSONE 60 mg tab(s) (DELTASONE) 60 mg ORAL DAILY - calcium carbonate 500 mg chewable tab(s) (TUMS) 500 mg ORA L BID PRN - amLODIPine 5 mg tab(s) (NORVASC) 5 mg ORAL DAILY - cloNIDine HCl 0.1 mg tab(s) (CATAPRES) 0.1 mg ORAL q 8 H P RN DATA: Diagnostic tests reviewed for today's visit: CBC, Coags, BMP, Mg, Phos Recent Labs 03/09/19 1042 03/09/19 0434 03/08/19 0612 03/07/19 0558 WBC 4.84 -- 3.32* 3.71* HB 9.1* -- 9.9* 10.4* HCT 28.0* -- 31.9* 33.8* PLT 55* -- 40* 42* NA -- 138 139 139 K -- 4.9 4.4 4.0 CHLOR -- 110* 111* 107 CO2 -- 22 25 26 BUN -- 34* 29* 26* CREAT -- 1.15* 1.15* 1.10* GLUC -- 165* 80 101* CA -- 8.1* 8.1* 8.1* Liver Function, Amylase, AND Lipase Recent Labs 03/07/19 0558 TPROT 6.2* ALB 2.0* ALT 16 AST 27 ALKPHOS 58 TBILI 0.3 Cardiac Enzymes Heme: No results for input(s): RETICP, ABSRETIC, LD, KHALIF, FE , TIBC, TRANSFERSAT in the last 24 hours. No results found for: UALBCR Assessment/Plan Patient Active Hospital Problem List: Pericardial tamponade (03/06/2019) Morbid obesity (HCC) (10/21/2017) History of lupus (HCC) (10/21/2017) Pericardial effusion (03/05/2019) History of cardiomyopathy (03/06/2019) History of pulmonary embolism (03/06/2019) Thrombocytopenia (HCC) (03/06/2019) Obesity, Class III, BMI >= 40 (03/06/2019) Malnutrition of mild degree ([facility]) (03/06/2019) ASSESSMENT: Mrs. Magaña is a 33 years old female with past medical history of rheumatoid arthritis, psoriatic arthritis, SLE, dysthymic disorder/post depression. He was diagnosed with pulmonary embolism and was restarted on apixaban 3 weeks ago. he presented to the hospital on 03/05/2019 for progressively worsening shortness of breath, pleuritic chest pain and lightheadednes s for a day. She also had leg edema, runny nose and sore throat and low-g rade fever with chills. She initially presented to [facility] she was noted to have pericardial effusion possible tampon out on be [facility] echo and was sent here for further treatment. She was initially admit andres in CVICU. she was noted to have large circumferential pericardial effu basia measuring 4.9 cm with LVEF of 55%. She underwent pericardiocentesisand drainage of 200 mL of large serous effusion on 03/06/2019. her symptoms h ave improved. She has 1. Large pericardial effusion/pericarditis: likely due to SL E. Status post pericardiocentesis. ICU team discussed with her lip cutter. Prednisone incre ased to 60 mg dailywith slow taper over 6 weeks. Also on colchicine and na proxen. 2. likely SLE flareup: Prednisone increased to 60 mg as above. on chronic 10 mg per day prednisone 3. Pancytopenia: likely due to SLE no evidence of bleed. appointment with molder fitting [facility] 4. Recent pulmonary embolism: Eliquis restarted after pericardiocentesis. 5. Anxious 6. Hypertension: blood pressure of 175/104, likely worsened by stress from being here/anxiety. Started on amlodipine 5 mg this morning. PLAN: continue above treatment. Monitor symptoms, platelets and blood pressure. clonidine when necessary. Xanax 1 dose (given) DC plan- if she continues to feel better and platelet and bl ood pressure are stable, will DC her home tomorrow. VTE Prophylaxis: Patient is already anti-coagulated. Disposition: Home Plan of care discussed with: Patient and RN SIGNATURE: Jean Apple MD PATIENT NAME: Kendra Franco DATE: March 09, 2019 TIME: 5:46 PM PAGER/CONTACT #: [phone] nutrition on 03-09 NUTRITION HNO ID: [id number] Normal 03-09-2019 [place] Author: Sandra Garcia) DANIS Saeed General Service: Nutrition Therapy Medical Author Type: Registered Dietitian Center Type: Nutrition ([phone]) Filed: 03/09/2019 11:07 AM Note Text: NUTRITION THERAPY PROGRESS NOTE SERVICE DATE: 03/09/2019 SERVICE TIME: 11:00 RECOMMENDED DIAGNOSIS: MILD PROTEIN-CALORIE MALNUTRITION per Registered Dietitian on 03/06/19 NUTRITION CARE PLAN Mild malnutrition related to inability to consume sufficient nutrition as evidenced by patient report of poor appetite/intake FINGERNAIL FORMER with SOB Intervention: 1. Encouraged oral intake. Please document accurate % meals taken in nursing flowsheet, thank you Monitor and Evaluation: Goal: Meet >75% of estimated needs Monitor fluid/electrolyte balance Monitor labs, I/Os, vital signs, weight Discharge Nutrition Recommendations: Diet: Regular Nutrition Follow-up: Interval History: S/P ICU admission for large pericardial ef fusion AND recent diagnosis of pulmonary embolism. S/P pericardiocentes is 03/06. Drain removed 03/08. Transferred out of ICU. Nutritional Intake: >75% estimated energy needs over the pas t 2 day(s). Only 2 meals recorded in nursing flowsheet since last RD not e, 75 and 100%. Patient states that after the fluid was removed, she h as been feeling much less SOB making it much easier to eat. Has been eating 3 meals a day here now, states it's a lot easier to eat when someone brings it to me! Had 100% of her breakfast this morning. Denies an y questions for RD at this time. Orders Placed This Encounter DIET REGULAR Standing Status: Standing Number of Occurrences: 1 Lines and Drains: Peripheral 03/05/19 2200 Short Left Forearm 20 Gauge (Active ) Height: 165.1 cm (5' 5) Admission Weight: 124 kg (273 lb 5.9 oz) Current Weight: 124.2 kg (273 lb 14.4 oz) Body mass index is 45.58 kg/m?. class 3 obesity Recent Labs 03/09/19 0434 03/08/19 0612 03/07/19 0558 GLUC 165* 80 101* BUN 34* 29* 26* CREAT 1.15* 1.15* 1.10* NA 138 139 139 K 4.9 4.4 4.0 CHLOR 110* 111* 107 CO2 22 25 26 ALB -- -- 2.0* HB -- 9.9* 10.4* HCT -- 31.9* 33.8* WBC -- 3.32* 3.71* MNT Billing Type: Re-assess/15 min 1 unit SIGNATURE: Sandra aSeed RD PATIENT NAME: Kendra Franco DATE: March 09, 2019 TIME: 8:37 AM PAGER: [phone] Previous entry done in error. Sandra Saeed RD. hemogram/diff on 05-03-23 Abs Immature Grans 0.08 0.00-0.05 thou/cmm High 03-09-2019 [facility] (00 000) Comment: Performed By: #### GFR #### [place] [address] Abs Neut (ANC) 4.30 1.56-6.13 thou/cmm Normal 03-09-2019 [facility] (15166) Comment: Performed By: #### GFR #### [place] [address] Abs. Baso 0.00 0.01-0.08 thou/cmm Low 03-09-2019 [facility] ([id number]) Comment: Result Comment: Smear steph son; feroz agrees with automated differential Performed By: #### GFR #### [facility] [address] [place], [place] [address] Abs. [place] 0.26 0.27-0.70 thou/cmm Low 03-09-2019 [facility] (83902) Comment: Performed By: #### GFR #### [facility] [address] [place], [place] [address] Basophils/100 WBC (Bld) 0.0 % Normal 2018 [facility] (45754) Comment: Performed By: #### GFR #### [address] [address] Eosinophils (Bld) 0.00 0.00-0.31 thou/cmm Normal [facility]-09-2019 [facility] (85468) Comment: Performed By: #### GFR #### [facility] [address] [place], [place] [address] Eosinophils/100 WBC (Bld) 0.0 % Normal 02-16 [facility] (97321) Comment: Performed By: #### GFR #### [address] [address] Immature Grans 1.70 % Normal 03-09-2019 [facility] (84589) Comment: Performed By: #### GFR #### [facility] [address] [place], [place] [address] Lymphocytes (Bld) [#/Vol] 0.20 1.18-3.74 thou/cmm Low 02-16 [facility] (00 000) Comment: Performed By: #### GFR #### [facility] [address] [place], [place] [address] Lymphocytes/100 WBC (Bld) 4.1 % Normal 02-16 [facility] (93892) Comment: Performed By: #### GFR #### [facility] [address] [place], [place] [address] Monocytes/100 WBC (Bld) 5.4 % Normal 2018 [facility] (93423) Comment: Performed By: #### GFR #### [facility] [address] [place], [place] [address] Seg Neutrophil 88.8 % Normal 03-09-2019 [facility] (88739) Comment: Performed By: #### GFR #### [facility] [address] [place] [address] Erythrocyte distribution 13.8 11.7-14.4 % Normal 03-09 [facility] width (RBC) [Ratio] System (66618) Comment: Performed By: #### GFR #### [facility] [address] [place] [address] Hematocrit (Bld) [Volume 28.0 34.1-44.9 % Low 03-09 [facility]] System (00 000) Comment: Performed By: #### GFR #### [facility] [address] [place], [place] [address] Hemoglobin (Bld) [Mass/Vol] 9.1 11.2-15.7 g/dL Low [facility] (00 000) Comment: Performed By: #### GFR #### [facility] [address] [place], [place] [address] MCH (RBC) [Entitic mass] 28.2 25.6-32.2 pg Normal 03-09 [facility] (00 000) Comment: Performed By: #### GFR #### [facility] [address] [place], [place] [address] MCHC (RBC) [Mass/Vol] 32.5 31.6-34.8 % Normal 03-09-20 19 [place] (24034) Comment: Performed By: #### GFR #### [address] [address] MCV (RBC) [Entitic vol] 86.7 79.4-94.8 fl Normal 2018 [place] (00 000) Comment: Performed By: #### GFR #### [facility] [address] [place], [place] [address] Platelets (Bld) [#/Vol] 55 182-369 thou/cmm Low 2018 [facility] (00 000) Comment: Performed By: #### GFR #### [facility] [address] [place] [address] RBC (Bld) [#/Vol] 3.23 3.93-5.22 mil/cmm Low 03-09-2019 [facility] [place] (12532) Comment: Performed By: #### GFR #### [facility] [address] [place] [address] RDW SD 43.2 36.4-46.3 fl Normal 03-09-2019 [facility] (42867) Comment: Performed By: #### GFR #### [facility] [address] [place] [address] WBC (Bld) [#/Vol] 4.84 3.98-10.04 thou/cmm Normal 03-09-2019 [facility] (00 000) Comment: Performed By: #### GFR #### [facility] [address] [place] [address] basic panel on 2018 Creatinine [Mass/Vol] 1.15 0.51-0.95 mg/dL High 03-09-20 19 [facility] (00 000) Comment: Performed By: #### GFR #### [facility] [address] [place] [address] Anion gap [Moles/Vol] 11 8-16 mmol/L Normal 03-09-20 19 [facility] (71062) Comment: Performed By: #### GFR #### [facility] [address] [place] [address] CO2 [Moles/Vol] 22 21-32 mEq/L Normal 03-09-2019 [facility] (96265) Comment: Performed By: #### GFR #### [place] [address] Glucose [Mass/Vol] 165 70-99 mg/dL High 03-09-2019 [facility] (52000) Comment: Performed By: #### GFR #### [facility] [address] [place], [place] [address] Urea nitrogen [Mass/Vol] 34 7-18 mg/dL High 03-09 [facility] (39598) Comment: Performed By: #### GFR #### [facility] [address] [place], [place] [address] Calcium [Mass/Vol] 8.1 8.5-10.1 mg/dL Low 03-09-2019 [facility] (73951) Comment: Performed By: #### GFR #### [facility] [address] [place], [place] [address] Chloride [Moles/Vol] 110 98-107 mEq/L High 9 [facility] (18093) Comment: Performed By: #### GFR #### [facility] [address] [place], [place] [address] Potassium [Moles/Vol] 4.9 3.5-5.1 mEq/L Normal 03-09-20 19 [facility] (62053) Comment: Performed By: #### GFR #### [facility] [address] [place], [place] [address] Sodium [Moles/Vol] 138 136-145 mEq/L Normal 03-09-2019 [facility] (63753) Comment: Performed By: #### GFR #### [facility] [address] [place], [place] [address] protein, body fluid on 2019-03-08 Protein, Fluid SEE BELOW Normal 03-08-2019 [facility] (35431) Comment: Result Comment: Protein, Bod y Fluid 4.5 AB SEEC g/dL Serous fluids: Effusions are the accumulation of clinically detected fluid in any of the serous cavities. Effusions are further into transudates and exudates, which aid in d etermining the etiology of the effusion. Transudate: Body fluid total protein measurement < 3.0 g/dL. A ratio of serous fluid total protein to a con current serum total protein < 0.5 indicates a transudate. Exudate: Body fluid total pr otein measurement >= 3.0 g/dL. A ratio of serous fluid total protein to a con current serum total protein >= 0.5 indicates an exudate. Reference: 1. CLSI. Analysis of Body Fluids in Clinical Chemistry Approved Guideline. CLSI document C49 TADEO [place]: Clinical Laboratory Standards [place]: 2007. This test was developed and its performance characteristics determined by [facility]'s [facility] [place] ([facility]). It has not been cleared or a pproved by the FDA. [facility] is regulated under CLIA as qualified to perform high complexity testing. This test is used for clinic al purposes. It should not be regarded as investigational or for resea [facility]. Performing Laboratory: [facility] [address] [place] [address] Performed By: #### GFR #### [place] [address] progress on 2019-02 PROGRESS HNO ID: [id number] Normal 03-08-2019 [facility] Author: [facility] Service: Pulmonary Disease ([id number]) Author Type: Physician Type: Progress Notes Filed: 03/08/2019 11:42 AM Note Text: CRITICAL CARE PROGRESS NOTE SERVICE DATE: March 08, 2019 SERVICE TIME: 11:34 AM Admission Date: 03/05/2019 AGE: [age] year old LOS: 3 days REASON FOR ICU ADMISSION: Large pericardial effusion Subjective I feel better Pain in left lower lateral chest/ left upper flank is resolv ed. OVERNIGHT EVENTS: No overnight events Objective PAST MEDICAL HISTORY Diagnosis Date - Abnormal glandular Papanicolaou smear of cervix Abn. Pap smear (cervix) - Cardiomyopathy 01/21/2010 post - Carpal tunnel syndrome - Dysthymic disorder Depression (non-psychotic) - Gestational diabetes mellitus, antepartum 03/16/2014 - Lupus (HCC) - Migraine, unspecified, with intractable migraine, so state d, without mention of status migrainosus Migraine - Obesity - depression - Psoriatic arthritis (HCC) - Rheumatoid arthritis (HCC) - Systemic lupus erythematosus (HCC) PAST SURGICAL HISTORY Procedure Laterality Date - ANESTH, SECTION 03/22/2014 - APPENDECTOMY - DELIVERY ONLY 01/14/2010 , low transverse - COLPOSCOPY (VAGINOSCOPY) Colposcopy - DANDC 11/2017 - LAP CHOLECYSTOENTEROSTOMY 06/2011 Social History Socioeconomic History Marital status: Spouse name: Not on file Number of children: 2 Years of education: 13 Highest education level: Not on file Social Needs Financial resource strain: Not on file Food insecurity - worry: Not on file Food insecurity - inability: Not on file Transportation needs - medical: Not on file Transportation needs - non-medical: Not on file Occupational 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 Temp (24hrs), Av.2 ?C (97.1 ?F), Min:36 ?C (96.8 ?F), Ma x:36.5 ?C (97.7 ?F) Vital signs reviewed. 24 hour Intake AND Output: Intake/Output Summary (Last 24 hours) at 03/08/2019 1134 Last data filed at 03/08/2019 0900 Gross per 24 hour Intake 1120 ml Output 750 ml Net 370 ml PHYSICAL EXAM: ENVIRONMENTAL SCIENTISTS: Alert and oriented. OOB to the chair. Pleasant spirits. HEENT: No oral lesions, no oral ulcers, dentition is good, Eyes: PER Neck: Unremarkable; No adenopathy or JVD Cardiovascular: Regular rhythm Respiratory: Clear to auscultation Abdomen: Soft and Nontender Extremities: Edema- No Skin: Abnormalities- Yes, mildly diaphoretic VENTILATOR INFORMATION: Not applicable. WEANING DATA: Settings: Patient Data: Weaning Data: INDWELLING CATHETERS: Lines, Drains, and Airways Line Peripheral 03/05/19 2200 Short Left Forearm 20 Gauge 2 days Drain Drain/Tube 03/06/19 1400 Assessment Pericardial Midline Ante rior Chest Drain #1 1 day INPATIENT MEDICATIONS: Current Facility-Administered Medications Medication Dose Route Frequency - potassium chloride 80-120 mEq oral liquid 80-120 mEq ORAL/ FEEDING TUBE PRN - potassium chloride iv piggyback 20 mEq/100 mL 20 mEq INTRA VENOUS PRN - magnesium sulfate in water 2 g in sterile water 50 ml 2 g INTRAVENOUS PRN - sodium glycerophosphate 45 mmol in NaCl 0.9% 250 mL (GLYCO PHOS) 45 mmol INTRAVENOUS PRN - calcium gluconate 4 g in NaCl 0.9% 250 mL 4 g INTRAVENOUS PRN - naproxen 500 mg tab(s) (NAPROSYN) 500 mg ORAL BID - colchicine 0.6 mg tab(s) 0.6 mg ORAL BID - DULoxetine 30 mg cap(s) (CYMBALTA) 30 mg ORAL BID - melatonin 9 mg tab(s) 9 mg ORAL DAILY (8 PM) - pantoprazole DR 40 mg tab(s) (PROTONIX) 40 mg ORAL DAILY ( 6 AM) - acetaminophen 1,000 mg tab(s) (TYLENOL) 1,000 mg ORAL q 8 H PRN - apixaban 5 mg tab(s) (ELIQUIS) 5 mg ORAL BID - perflutren lipid microspheres 1.1 mg/mL 1.3 mL injection ( DEFINITY) 1.3 mL INTRAVENOUS DIRECTED PRN - [START ON 03/09/2019] predniSONE 60 mg tab(s) (DELTASONE) 6 0 mg ORAL DAILY NUTRITION: Enteral Feeds: No DATA: BLOOD GAS: No results for input(s): VPH, VPC2, VPO2C, RESPHCO3, BASEX, C7LJHBAN, PH, PCO2, RESPHCO3, BASEX, B1SPGYPK in the last 168 hours. Invalid input(s): PO2C CBC: Recent Labs 03/08/19 0612 03/07/19 0558 03/06/19 0600 WBC 3.32* 3.71* 3.89* HB 9.9* 10.4* 10.1* HCT 31.9* 33.8* 32.0* PLT 40* 42* 46* MCV 90.4 88.7 87.7 COAG: No results for input(s): APTT, INR in the last 168 barbara rs. BMP: Recent Labs 03/08/19 0612 03/07/19 0558 03/06/19 0600 03/05/19 2040 GLUC 80 101* 97 95 NA 139 139 137 136 K 4.4 4.0 4.0 4.4 CHLOR 111* 107 105 106 CO2 25 26 25 25 ANION 7* 10 11 9 BUN 29* 26* 20* 16 CREAT 1.15* 1.10* 1.07* 0.80 CHEM: Recent Labs 03/08/19 0612 03/07/19 0558 03/06/19 1620 03/06/19 0600 03/05/192039 ALB -- 2.0* -- 2.1* 2.1* TPROT -- 6.2* 6.6 5.9* 6.2* CA 8.1* 8.1* -- 7.6* 7.7* HEPATIC: Recent Labs 03/07/19 0558 03/06/19 0600 03/05/192039 ALKPHOS 58 59 64 ALT 16 19 19 AST 27 19 18 TBILI 0.3 0.4 0.3 URINALYSIS: No results for input(s): PH, SPGR, UGLUC, UBILI, UKET, UHB, UPROT, UROBIL, UWBC, SSA in the last 168 hours. Invalid input(s): NITR 03/06/2019 ?8:29 AM - Interface, [facility] Ib Component Results Component Value Range AND Units Status Performing Lab Procalcitonin 0.11 ng/mL Final [facility] CARDIAC: No results for input(s): CKTEST, CKMB, CKMBP, TROPT , PBNP in the last 168 hours. STAT ECHO - 03/05/19 Left ventricular systolic function is normal. EF = 55 ? 5% (visual est.) - There is large circumferential pericardial effusion measur ing 4.9 cm. It is most pronounced?around the left ventricle. There appea rs to be some echogenic material within the effusion.The inflow velocity v ariation across the atrial ventricular valves is not suggestive of tamponade, bu t there is significant ?swinging motion of the heart. There is some systolic indent ation of the right atrium, and diastolic indentation of the right ventricle. Th e inferior vena cava is plethoric, and does not collapse with inspiration. Data s uggest early tamponade. ? 02/15/2019 bilateral lower extremity ultrasound for DVT Negative in both extremities 03/05/2019 DVT Bilateral Lower Extremity Duplex IMPRESSION Suboptimal visualization of the calf veins. ?The remaining v eins demonstrate normal compressibility and blood flow with no co nvincing evidence of DVT bilateral lower extremities. Subcutaneous edema. Anticoagulant AND Antiplatelet Medications (From admission, onward) Start Dose Route Frequency Ordered Stop 03/07/19 1430 apixaban 5 mg tab(s) (ELIQUIS) 5 mg ORAL 2 TIMES DAILY 03/07/19 1333 -- 03/06/19 1115 pneumatic compression stockings ([place], [place]) 03/06/19 111 activity - mobilize patient ([place], [place]) 03/05/192029 vte non-pharmacologic prophylaxis - none indic ated (ct,ut) 03/05/192029 vte current anticoag therapy (ct,ut) VTE Prophylaxis: VTE prophylaxis appropriate Assessment/Plan IMPRESSION: - Large pericardial effusion/ pericarditis - Pulmonary embolism diagnosed 3 weeks ago - Pancytopenia -> followed by hematology at [facility] - Systemic Lupus Erythematosus/ RA -> on chronic 10mg/day pr ednisone - BMI 45 PLAN: - Continue Eliquis - Checking ECHO today and if ok will get drain removed today . - Hold off on IVC filter, since bilateral extremity Dopplers are negative. - Continue prednisone 60 mg daily followed by slow taper per her lip cutter - Follow AM blood sugar now that she is on this higher dose of prednisone she may require insulin coverage. - Continue colchicine and naproxen as per cardiology. - Bilateral lower extremity SCDs - Anticipate tx out to floor later today if able to get shante carey. Patient/Family Updated: Patient updated Code status: Full Discussed with Respiratory therapist, Registered Nurse, Phar macist and Residents while performing multidisciplinary rounds. SIGNATURE: Valerie Cantrell MD [facility] PAGER:[phone] DATE of SERVICE: March 08, 2019 TIME of SERVICE: 11:34 AM PROGRESS HNO ID: [id number] Normal 03-08-2019 [facility] Author: Elías Fournier [facility] Service: Cardiovascular Disease ([id number]) Author Type: Physician Type: Progress Notes Filed: 03/08/2019 12:23 PM Note Text: CVICU PROGRESS NOTE SERVICE DATE: 03/08/2019 SERVICE TIME: 10:01 AM Admission Date: 03/05/2019 AGE: [age] year old LOS: 3 days ACTIVE PROBLEM LIST Cardiomyopathy, Peripartum, Tramaine (Generalized Anxiety Disorder) Lichen Simplex Chronicus History of Depression Frequency of Urination Morbid Obesity (Hcc) History of lupus (HCC) Thrombocytopenia Affecting (Hcc) Pericardial Effusion History of Cardiomyopathy History of Pulmonary Embolism Pericardial Tamponade Thrombocytopenia (Hcc) Obesity, Class III, BMI >= 40 Malnutrition of Mild Degree (Hcc) Subjective 33 year old white female with a PMH of SLE/RA on prednisone, post cardiomyopathy with recovery, recent PE on apixaban presenti ng with worsening dyspnea and pleuritic chest pain found to have per icardial effusion?and signs of eaarly tamponade on Echo .? ? OVERNIGHT EVENTS: Talked to the patient 's lip cutter Dr Jara. She linda mmends starting prednisone 60 mg with a slow taper of 6 weeks . Pericardial drain not draining anything , can be potentially removed today . Pain is better . Eliquis started yesterday - Hb stable and PLT 40 Objective PHYSICAL EXAM VITAL SIGNS (last 24hrs min/max): Temp Av.2 ?C (97.2 ?F) Min: 36 ?C (96.8 ?F) Max: 36.5 ? C (97.7 ?F) Pulse Av.5 Min: 88 Max: 134 Cuff BP Min: 117/92 Max: 155/114 Pain Level: 0 24 hour Intake AND Output: Intake/Output Summary (Last 24 hours) at 03/08/2019 1001 Last data filed at 03/08/2019 0900 Gross per 24 hour Intake 1120 ml Output 750 ml Net 370 ml General : Young white female well built and nourished HEENT : No thrush, no oral ulcers. No pallor or icterus. Neck :?Unable to see?JVD,?no?carotid bruits. No LAD. RS : Normal vesicular breaths sounds , saturating 97% on 3L. ? CVS : S1, S2 heard. Tachycardic. Regular. No m/r/g. No tende rness to palpation. Pericardial drain present , no redness/ discharge , looks clean Abd :?soft, non tender, non distended. Extremities : Some pitting and non pitting edema in both leg s. Pulses palpable radial, DP/PT bilaterally.? Some swelling of her PIP joints in both hands, not much MCP joint involvement. No clear synovial thickening felt.? Neuro : Alert and oriented to time, place and person.? Lines, Drains, and Airways Line Peripheral 03/05/19 2200 Short Left Forearm 20 Gauge 2 days Drain Drain/Tube 03/06/19 1400 Assessment Pericardial Midline Ante rior Chest Drain #1 1 day VENTILATOR INFORMATION: INPATIENT MEDICATIONS : Current Facility-Administered Medications Medication Dose Route Frequency - perflutren lipid microspheres 1.1 mg/mL 1.3 mL injection ( DEFINITY) 1.3 mL INTRAVENOUS DIRECTED PRN - potassium chloride 80-120 mEq oral liquid 80-120 mEq ORAL/ FEEDING TUBE PRN - potassium chloride iv piggyback 20 mEq/100 mL 20 mEq INTRA VENOUS PRN - magnesium sulfate in water 2 g in sterile water 50 ml 2 g INTRAVENOUS PRN - sodium glycerophosphate 45 mmol in NaCl 0.9% 250 mL (GLYCO PHOS) 45 mmol INTRAVENOUS PRN - calcium gluconate 4 g in NaCl 0.9% 250 mL 4 g INTRAVENOUS PRN - naproxen 500 mg tab(s) (NAPROSYN) 500 mg ORAL BID - colchicine 0.6 mg tab(s) 0.6 mg ORAL BID - DULoxetine 30 mg cap(s) (CYMBALTA) 30 mg ORAL BID - perflutren lipid microspheres 1.1 mg/mL 1.3 mL injection ( DEFINITY) 1.3 mL INTRAVENOUS DIRECTED PRN - melatonin 9 mg tab(s) 9 mg ORAL DAILY (8 PM) - pantoprazole DR 40 mg tab(s) (PROTONIX) 40 mg ORAL DAILY ( 6 AM) - lidocaine 5 % 1 Patch (LIDODERM) 1 Patch TRANSDERMAL DAILY And - lidocaine patch - REMOVE OTHER AT BEDTIME And - lidocaine - VERIFY PATCH OTHER q 8 H - acetaminophen 1,000 mg tab(s) (TYLENOL) 1,000 mg ORAL q 8 H PRN - apixaban 5 mg tab(s) (ELIQUIS) 5 mg ORAL BID - perflutren lipid microspheres 1.1 mg/mL 1.3 mL injection ( DEFINITY) 1.3 mL INTRAVENOUS DIRECTED PRN - predniSONE 60 mg tab(s) (DELTASONE) 60 mg ORAL DAILY Data: BLOOD GAS: No results for input(s): VPH, VPC2, VPO2C, RESPHCO3, BASEX, [id number], PH, PCO2, RESPHCO3, BASEX, [id number] in the last 168 hours. Invalid input(s): PO2C CBC: Recent Labs 03/08/19 0612 03/07/19 0558 03/06/19 0600 WBC 3.32* 3.71* 3.89* HB 9.9* 10.4* 10.1* HCT 31.9* 33.8* 32.0* PLT 40* 42* 46* MCV 90.4 88.7 87.7 COAG: No results for input(s): APTT, INR in the last 168 barbara rs. BMP: Recent Labs 03/08/19 0612 03/07/19 0558 03/06/19 0600 03/05/19 2040 GLUC 80 101* 97 95 NA 139 139 137 136 K 4.4 4.0 4.0 4.4 CHLOR 111* 107 105 106 CO2 25 26 25 25 ANION 7* 10 11 9 BUN 29* 26* 20* 16 CREAT 1.15* 1.10* 1.07* 0.80 CHEM: Recent Labs 03/08/19 0612 03/07/19 0558 03/06/19 1620 03/06/19 0600 03/05/19 204 ALB -- 2.0* -- 2.1* 2.1* TPROT -- 6.2* 6.6 5.9* 6.2* CA 8.1* 8.1* -- 7.6* 7.7* HEPATIC: Recent Labs 03/07/19 0558 03/06/19 0600 03/05/19 2040 ALKPHOS 58 59 64 ALT 16 19 19 AST 27 19 18 TBILI 0.3 0.4 0.3 URINALYSIS:No results for input(s): PH, SPGR, UGLUC, UBILI, UKET, UHB, UPROT, UROBIL, UWBC, SSA in the last 168 hours. Invalid input(s): NITR CARDIAC: No results for input(s): CKTEST, CKMB, CKMBP, TROPT , PBNP in the last 168 hours. Active Hospital Problems Diagnosis - Pericardial tamponade - History of cardiomyopathy - History of pulmonary embolism 3 weeks ago - Thrombocytopenia (HCC) - Obesity, Class III, BMI >= 40 - Malnutrition of mild degree (HCC) - Pericardial effusion - History of lupus (HCC) 10/21/2017 Patient states she was diagnosed with Lupus about 2 years ago. 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 She will call Dr Jara and let her know she is .TKRN - Morbid obesity (HCC) ASSESSMENT/PLAN: #?Pericardial effusion - 2/2 recent PE v SLE/RA v viral woodrow carditis - STAT echo at admission ?concerning for signs of early tamp onade? -s/p pericardiocentesis and removal of 1200ml fluid - pericardial drain in place - Possibility of an SLE flare is there with her having some features. Will resume home prednisone for now, 10mg.?CRP elevated . ES R elevated C3 , C4 low - Discussed with Patient's lip cutter . Will st art with prednisone 60 mg with a slow taper of 6 weeks - Start naproxen 500m bid and colchicine 0.6mg daily for pos sible pericarditis.? # Pulmonary embolism, likely provoked.?-?On home apixaban. W as held for pericardiocentesis . -Patient started on eliquis yesterday ? # SLE, RA - As above.? - She may be having a SLE flare although hard to say.?CRP is elevated .C3, C4 low - Discussed with Patient's lip cutter . Will start with prednisone 60 mg with a slow taper of 6 weeks Ayaz Silverman PGY1 Internal Medicine 2208 Patient was seen and discussed with resident. I have chase tijerina seen and examined the patient. I have reviewed labs, clinical data an d pertinent images. I agree with the documentation above. I'll summarize our mutual assessment and plan below. This is a 33-year-old female with history of systemic lupus erythematosus on chronic prednisone, recent diagnosis of acute PE 3 weeks ago on apixaban and previous history of cardiomyopathy. Patient presented to the ED on 03/05/2019 with shortness of breath. E chocardiogram was concerning for tamponade physiology. She then underwent pericardiocentesis with removal of 1.2 L serious pericardial effusion and placement of pericardial drain on 03/06/2019. Critical Care Documentation: Pericardial effusion presenting as tamponade status post pericardiocentesis Systemic lupus erythematosus Left pulmonary embolism 3 weeks ago Pancytopenia Plan Minimal pericardial drain output. We'll do a limited echo an d if no residual effusion, plan will be to remove the pericardial dr odom. We are concerned regarding lupus flare given recent pulmonar y embolism and now development of pericardial effusion. We reached out to h er outpatient lip cutter. Patient will be seeing her on Wednesday. For n ow we'll start her on higher doses of prednisone for potential SLE fl are. She will be on colchicine as well as naproxen. We have added Protonix for GI protection. I have also instructed her to follow up with her hematologis t in [place]. Platelet count is 40 and hemoglobin is 9.9. She will need cl ose monitoring of her blood counts while she is on apixaban. This patient has a high probability of sudden, clinically si gnificant deterioration, which requires the highest level of physician preparedness to intervene urgently. I managed/supervised life or organ taylor pporting interventions that required frequent physician assessment. I devoted my full attention to the direct care of this patient for the am ount of time indicated below. Time I spent with family or surrogate(s) is included only if the patient was incapable of providing the necessary information or participating in medical decision making. Time devoted to teaching is not included. ?? Time spent providing critical care services: 40 minutes excl uding procedures. Elías Wahl MD, [facility] Cardiovascular Medicine Pager: [phone] March 08, 2019 This patient brandon s a high probability of sudden, clinically significant deterioration, which requires the highest level of physician preparedness to intervene urgently. I managed/supervised life or organ taylor pporting interventions that required frequent physician assessment. I devoted my full attention to the direct care of this patient for the am ount of time indicated below. Time I spent with family or surrogate(s) is included only if the patient was incapable of providing the necessary information or participating in medical decision making. Time devoted to teaching is not included. ?? Time spent providing critical care services: 60 minutes excl uding procedures. Elías Wahl MD, [facility] Cardiovascular Medicine Pager: [phone] March 08, 2019 ldh,body fluid on LDH, Body Fluid SEE BELOW Normal 03-08-2019 [facility] ([id number]) Comment: Result Comment: LDH, Body Fl uid 936 AB SEEC U/L Pleural fluids: Pleural flui d lactate dehydrogenase (LDH) measurements may be useful for classifying pleur al effusions as exudates. A ratio of pleural fluid LDH to a concurrent serum LD H > 0.6 is suggestive of exudate. Peritoneal fluids: Ascitic f luid LDH measurements may aid in characterizing secondary peritonitis and sh ould be interpreted along with other clinical and laboratory information. Synovial fluids: Synovial fl uid LDH measurements may be useful as an inflammatory marker for vari ous arthritic conditions and should be interpreted along with other clinical an d laboratory information. Reference: 1. CLSI. Analysis of Body Fluids in Clinical Chemistry Approved Guideline. CLSI document C49 Huey. TADEO Haas: Clinical Laboratory Standards [place]: 2007. Reference: 2. Tianna HAMM, Nick Arzate. Body fluid analysis: clinical utility and applicability of published studies to guide interpretation of today's laboratory testing i n serous fluids. Crit Rev Clin Lab Sci, 2013:50(4, 5):107 to 124. Reference: 3. David Fournier, Iliana Arzate, Jeri HAMM. Lactate dehydrogenase activity and its isoenzymes in serum and synovial fluid of patients with rheumatoid arthritis and ost eoarthritis. J Rheumatol. 1992:19:529 to 533. This test was developed and its performance characteristics determined by [facility]'s [facility] Pathology and Laboratory Medicine [place] ( [facility]). It has not been cleared or a pproved by the FDA. [facility] is regulated under CLIA as qualified to perform high complexity testing. This test is used for clinic al purposes. It should not be regarded as investigational or for resea [facility]. Performing Laboratory: [facility] Laboratorie s [address] [place] [address] Performed By: #### CRP3 #### [address] [address] hemogram/diff on 05-03-22 Abs Immature Grans 0.02 0.00-0.05 thou/cmm Normal 03-08-2019 [facility] (00 000) Comment: Performed By: #### GFR #### [address] [address] Abs Neut (ANC) 2.87 1.56-6.13 thou/cmm Normal 03-08-2019 [facility] ([id number]) Comment: Performed By: #### GFR #### [address] [place], [place] [address] Abs. Baso 0.01 0.01-0.08 thou/cmm Normal 03-08-2019 [facility] ([id number]) Comment: Result Comment: Smear scanne d; tech agrees with automated differential Performed By: #### GFR #### [address] [address] Abs. [place] 0.19 0.27-0.70 thou/cmm Low 03-08-2019 [facility] (42271) Comment: Performed By: #### GFR #### [place] [address] Basophils/100 WBC (Bld) 0.3 % Normal 2018 [facility] (80547) Comment: Performed By: #### GFR #### [place] [address] Eosinophils (Bld) 0.01 0.00-0.31 thou/cmm Normal 03-08-2019 [facility] [#/Vol] [facility] (50827) Comment: Performed By: #### GFR #### [place] [address] Eosinophils/100 WBC (Bld) 0.3 % Normal 02-16 [facility] (67623) Comment: Performed By: #### GFR #### [place] [address] Erythrocyte distribution 14.3 11.7-14.4 % Normal 03-08 [facility] width (RBC) [Ratio] System (05525) Comment: Performed By: #### GFR #### [place] [address] Hematocrit (Bld) [Volume 31.9 34.1-44.9 % Low 03-08 [facility] fraction] System (00 000) Comment: Performed By: #### GFR #### [place] [address] Hemoglobin (Bld) [Mass/Vol] 9.9 11.2-15.7 g/dL Low [facility] (00 000) Comment: Performed By: #### GFR #### [facility] [address] [place], [place] [address] Immature Grans 0.60 % Normal 03-08-2019 [facility] (59269) Comment: Performed By: #### GFR #### [facility] [address] [place], [place] [address] Lymphocytes (Bld) [#/Vol] 0.22 1.18-3.74 thou/cmm Low 02-16 [facility] (00 000) Comment: Performed By: #### GFR #### [facility] [address] [place], [place] [address] Lymphocytes/100 WBC (Bld) 6.6 % Normal 02-16 [facility] (05750) Comment: Performed By: #### GFR #### [address] [address] MCH (RBC) [Entitic mass] 28.0 25.6-32.2 pg Normal 03-08 [facility] (00 000) Comment: Performed By: #### GFR #### [address] [address] MCHC (RBC) [Mass/Vol] 31.0 31.6-34.8 % Low 03-08-20 19 [facility] (28476) Comment: Performed By: #### GFR #### [address] [address] MCV (RBC) [Entitic vol] 90.4 79.4-94.8 fl Normal 2018 [facility] (00 000) Comment: Performed By: #### GFR #### [facility] [address] [place], [place] [address] Monocytes/100 WBC (Bld) 5.7 % Normal 2018 [facility] (19100) Comment: Performed By: #### GFR #### [address] [address] Platelets (Bld) 40 182-369 thou/cmm Critically low 9 [facility] [#/Vol] [facility] (59786) Comment: Result Comment: Repeated AND verified Performed By: #### GFR #### [facility] [address] [place] [address] RBC (Bld) [#/Vol] 3.53 3.93-5.22 mil/cmm Low 03-08-2019 [employer] [facility] (96033) Comment: Performed By: #### GFR #### [facility] [address] [place] [address] RDW SD 46.2 36.4-46.3 fl Normal 03-08-2019 [facility] (79682) Comment: Performed By: #### GFR #### [facility] [address] [place] [address] Seg Neutrophil 86.5 % Normal 03-08-2019 [facility] (56987) Comment: Performed By: #### GFR #### [facility] [address] [place] [address] WBC (Bld) [#/Vol] 3.32 3.98-10.04 thou/cmm Low 03-08-2019 [facility] (71557) Comment: Performed By: #### GFR #### [place] [address] glucose,body fluid on 2019-03-08 Glucose, Fluid SEE BELOW Normal 03-08-2019 [facility] (88501) Comment: Result Comment: Glucose, Bod y Fluid 98 AB SEEC mg/dL Synovial fluid: Synovial flu id glucose measurement may be useful in classifying various joint disorders. A c oncurrent plasma glucose measurement should be performed to determine the g lucose plasma minus glucose synovial fluid difference, which is normall y <= 10.0 mg/dL. Artificial lowering of synov ial fluid glucose, due to glycolytic action of leukocytes, may result from analyses that occur more than one hour from the time of collection. Reference: 1. CLSI. Analysis of Body Fluids in Clinical Chemistry Approved Guideline. CLSI document C49 Huey. TADEO Haas: Clinical Laboratory Standards [place]: 2007. This test was developed and its performance characteristics determined by [facility]'s [facility] Pathology and Laboratory Medicine [place] ([facility]). It has not been cleared or a pproved by the FDA. [facility] is regulated under CLIA as qualified to perform high complexity testing. This test is used for clinic al purposes. It should not be regarded as investigational or for resea [facility]. Performing Laboratory: [facility] Labor[facility] [address] [place] [address] Performed By: #### CRP3 #### [place] [id number] case managem on 201 06-22-22 CASE MANAGEM HNO ID: [id number] Normal 03-08-20 [facility] Author: Christina Espino ([place]) ([id number]) Service: Social Work Author Type: Gis Physical Scientist Type: Care Mgt Progress Note Filed: 03/08/2019 1:32 PM Note Text: CARE MANAGEMENT PROGRESS NOTE SERVICE DATE: 03/08/2019 SERVICE TIME: 1:30 PM LOS: 3 days Pt requested FMLA forms be completed. Took to Dr. Samayoa off ice and informed pt. SIGNATURE: DENISSE Escamilla PATIENT NAME: Kendra Franco DATE: March 08, 2019 TIME: 1:30 PM PAGER/CONTACT #: [phone] basic panel on 2018 Creatinine [Mass/Vol] 1.15 0.51-0.95 mg/dL High 03-08-20 [facility] (00 000) Comment: Performed By: #### GFR #### [place] [address] Anion gap [Moles/Vol] 7 8-16 mmol/L Low 03-08-20 19 [facility] (37459) Comment: Performed By: #### GFR #### [place] [id number] Calcium [Mass/Vol] 8.1 8.5-10.1 mg/dL Low 03-08-2019 [facility] (31962) Comment: Performed By: #### GFR #### [place] [id number] CO2 [Moles/Vol] 25 21-32 mEq/L Normal 03-08-2019 [facility] (94620) Comment: Performed By: #### GFR #### [facility] [address] [place], [place] [address] Glucose [Mass/Vol] 80 70-99 mg/dL Normal 03-08-2019 [facility] (28742) Comment: Performed By: #### GFR #### [facility] [address] [place], [place] [address] Urea nitrogen [Mass/Vol] 29 7-18 mg/dL High 03-08 [facility] (02437) Comment: Performed By: #### GFR #### [facility] [address] [place], [place] [address] Chloride [Moles/Vol] 111 98-107 mEq/L High 9 [facility] (04054) Comment: Performed By: #### GFR #### [facility] [address] [place], [place] [address] Potassium [Moles/Vol] 4.4 3.5-5.1 mEq/L Normal 03-08-20 19 [facility] (50458) Comment: Performed By: #### GFR #### [facility] [address] [place], [place] [address] Sodium [Moles/Vol] 139 136-145 mEq/L Normal 03-08-2019 [facility] (59883) Comment: Performed By: #### GFR #### [facility] [address] [place], [place] [address] allied health on 05-03-22 [facility] HNO ID: [id number] Normal 019 [facility] Author: Madyson Ferrari) Marcin Corona ([id number]) Service: ? Author Type: Control Technician Type: Allied Health Filed: 03/08/2019 1:52 PM Note Text: SPIRITUAL CARE PROGRESS NOTE SERVICE DATE: 03/08/2019 SERVICE TIME: 10 20 a.m. To contact the Spiritual Care Department: Please call. [phone] SIGNATURE: Chaplain Yoselin [facility] PATIENT NAME: Kendra Franco DATE: March 08, 2019 TIME: 1:47 PM PAGER/CONTACT #: [phone] Today I checked in with Pt for SC visit. Pt asked for prayer concerning her heart. Pt informed me that fluid was building up around her heart along with a potential blood clot. Pt asked for prayer for h er recovery and possible discharge. I extended SC in the form of prayer to Pt and thanked her for allowing our SC dept to assist her with her SC needs. albumin body fluid on 2019-03-08 Albumin Fluid SEE BELOW Normal 03-08-2019 [facility] (19552) Comment: Result Comment: Albumin, Flu id 2.2 AB SEEC g/dL Body Fluid Albumin may be us ed in classifying ascitic fluid into high-gradient or low-gradient fluids as de termined by the serum-ascites albumin gradient, which is calculated as (seru m albumin) - (ascites albumin). The serum and fluid specimen s should be drawn with a minimal intervening time interval to appropriately an alyze the gradient. Gradients greater than or eq ual to 1.1 g/dL are considered high, which reflects a high hydrostatic pressure, commonly caused by: cirrhosis or other processes generting portal hypertensio n. In samples where gradients a re less than 1.1 g/dL, ascites generated from conditions without portal hy pertension should be considered. Reference: 1. CLSI. Analysis of Body Fluids in Clinical Chemistry Approved Guideline. CLSI document C49 Huey. TADEO Haas: Clinical Laboratory Standards [place]: 2007. Reference: 2. Eboni NOLASCO. Ser um to ascites albumin gradient. UpToDate. 2015. Accessed on January 29, 2016. This test was developed and its performance characteristics determined by [facility]'s [facility] Pathology and Laboratory Medicine [place] ( [facility]). It has not been cleared or a pproved by the FDA. [facility] is regulated under CLIA as qualified to perform high complexity testing. This test is used for clinic al purposes. It should not be regarded as investigational or for resea [facility]. Fluid PERICARDIAL Performing Laboratory: [facility] [address] [place] [address] Performed By: #### GFR #### [address] [address] progress on 2019-02 PROGRESS HNO ID: [id number] Normal 03-07-2019 [facility] Author: Blank [facility] Service: Pulmonary Disease ([id number]) Author Type: Physician Type: Progress Notes Filed: 03/07/2019 12:39 PM Note Text: CRITICAL CARE PROGRESS NOTE SERVICE DATE: March 07, 2019 SERVICE TIME: 12:31 PM Admission Date: 03/05/2019 AGE: [age] year old LOS: 2 days REASON FOR ICU ADMISSION: Large pericardial effusion Subjective Complaining of pain in her left side the lower chest/left fl ank region. Not complaining of pain. She does feel better than yesterday. OVERNIGHT EVENTS: No overnight events Objective PAST MEDICAL HISTORY Diagnosis Date - Abnormal glandular Papanicolaou smear of cervix Abn. Pap smear (cervix) - Cardiomyopathy 01/21/2010 post - Carpal tunnel syndrome - Dysthymic disorder Depression (non-psychotic) - Gestational diabetes mellitus, antepartum 03/16/2014 - Lupus (HCC) - Migraine, unspecified, with intractable migraine, so state d, without mention of status migrainosus Migraine - Obesity - depression - Psoriatic arthritis (HCC) - Rheumatoid arthritis (HCC) - Systemic lupus erythematosus (HCC) PAST SURGICAL HISTORY Procedure Laterality Date - ANESTH, SECTION 03/22/2014 - APPENDECTOMY - DELIVERY ONLY 01/14/2010 , low transverse - COLPOSCOPY (VAGINOSCOPY) Colposcopy - DANDC 11/2017 - LAP CHOLECYSTOENTEROSTOMY 06/2011 Social History Socioeconomic History Marital status: Spouse name: Not on file Number of children: 2 Years of education: 13 Highest education level: Not on file Social Needs Financial resource strain: Not on file Food insecurity - worry: Not on file Food insecurity - inability: Not on file Transportation needs - medical: Not on file Transportation needs - non-medical: Not on file Occupational 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 Temp (24hrs), Av.3 ?C (97.3 ?F), Min:36 ?C (96.8 ?F), Ma x:36.7 ?C (98.1 ?F) Vital signs reviewed. 24 hour Intake AND Output: Intake/Output Summary (Last 24 hours) at 03/07/2019 1231 Last data filed at 03/07/2019 0600 Gross per 24 hour Intake 30 ml Output 1580 ml Net -1550 ml PHYSICAL EXAM: ENVIRONMENTAL SCIENTISTS: Alert and oriented. 33-year-old female sitting up in th e chair. no acute distress. HEENT: No oral lesions, no oral ulcers, dentition is good, Eyes: PER Neck: Unremarkable; No adenopathy or JVD Cardiovascular: Regular rhythm: Pericardial drain in place. Draining to gravity. Cloudy yellow pericardial fluid with fibrinous stra nds. Respiratory: Clear to auscultation Abdomen: Soft and Nontender Extremities: Edema- No Skin: Abnormalities- Yes, mildly diaphoretic VENTILATOR INFORMATION: Not applicable. WEANING DATA: Settings: Patient Data: Weaning Data: INDWELLING CATHETERS: Lines, Drains, and Airways Line Peripheral 03/05/19 2200 Short Left Forearm 20 Gauge 1 day Peripheral 03/07/19 0600 Assessment Short Left Antecubital 2 0 Gauge less than 1 day Drain Drain/Tube 03/06/19 1400 Assessment Pericardial Midline Ante rior Chest Drain #1 less than 1 day INPATIENT MEDICATIONS: Current Facility-Administered Medications Medication Dose Route Frequency - perflutren lipid microspheres 1.1 mg/mL 1.3 mL injection ( DEFINITY) 1.3 mL INTRAVENOUS DIRECTED PRN - predniSONE 10 mg tab(s) (DELTASONE) 10 mg ORAL DAILY - potassium chloride 80-120 mEq oral liquid 80-120 mEq ORAL/ FEEDING TUBE PRN - potassium chloride iv piggyback 20 mEq/100 mL 20 mEq INTRA VENOUS PRN - magnesium sulfate in water 2 g in sterile water 50 ml 2 g INTRAVENOUS PRN - sodium glycerophosphate 45 mmol in NaCl 0.9% 250 mL (GLYCO PHOS) 45 mmol INTRAVENOUS PRN - calcium gluconate 4 g in NaCl 0.9% 250 mL 4 g INTRAVENOUS PRN - naproxen 500 mg tab(s) (NAPROSYN) 500 mg ORAL BID - colchicine 0.6 mg tab(s) 0.6 mg ORAL BID - DULoxetine 30 mg cap(s) (CYMBALTA) 30 mg ORAL BID - perflutren lipid microspheres 1.1 mg/mL 1.3 mL injection ( DEFINITY) 1.3 mL INTRAVENOUS DIRECTED PRN - melatonin 9 mg tab(s) 9 mg ORAL DAILY (8 PM) - pantoprazole DR 40 mg tab(s) (PROTONIX) 40 mg ORAL DAILY ( 6 AM) - lidocaine 5 % 1 Patch (LIDODERM) 1 Patch TRANSDERMAL DAILY And - lidocaine patch - REMOVE OTHER AT BEDTIME And - lidocaine - VERIFY PATCH OTHER q 8 H - acetaminophen 1,000 mg tab(s) (TYLENOL) 1,000 mg ORAL q 8 H PRN NUTRITION: Enteral Feeds: No DATA: BLOOD GAS: No results for input(s): VPH, VPC2, VPO2C, RESPHCO3, BASEX, [id number], PH, PCO2, RESPHCO3, BASEX, [id number] in the last 168 hours. Invalid input(s): PO2C CBC: Recent Labs 03/07/1955703/06/19599 WBC 3.71* 3.89* HB 10.4* 10.1* HCT 33.8* 32.0* PLT 42* 46* MCV 88.7 87.7 COAG: No results for input(s): APTT, INR in the last 168 barbara rs. BMP: Recent Labs 03/07/1955703/06/19 0603/05/192039 GLUC 101* 97 95 NA 139 137 136 K 4.0 4.0 4.4 CHLOR 107 105 106 CO2 26 25 25 ANION 10 11 9 BUN 26* 20* 16 CREAT 1.10* 1.07* 0.80 CHEM: Recent Labs 03/07/1955703/06/19 1620 03/06/19 0603/05/192039 ALB 2.0* -- 2.1* 2.1* TPROT 6.2* 6.6 5.9* 6.2* CA 8.1* -- 7.6* 7.7* HEPATIC: Recent Labs 03/07/1955703/06/19 0600 03/05/192039 ALKPHOS 58 59 64 ALT 16 19 19 AST 27 19 18 TBILI 0.3 0.4 0.3 URINALYSIS: No results for input(s): PH, SPGR, UGLUC, UBILI, UKET, UHB, UPROT, UROBIL, UWBC, SSA in the last 168 hours. Invalid input(s): NITR 03/06/2019 ?8:29 AM - Interface, [facility] Ib Component Results Component Value Range AND Units Status Performing Lab Procalcitonin 0.11 ng/mL Final [facility] CARDIAC: No results for input(s): CKTEST, CKMB, CKMBP, TROPT , PBNP in the last 168 hours. STAT ECHO - 03/05/19 Left ventricular systolic function is normal. EF = 55 ? 5% (visual est.) - There is large circumferential pericardial effusion measur ing 4.9 cm. It is most pronounced?around the left ventricle. There appea rs to be some echogenic material within the effusion.The inflow velocity v ariation across the atrial ventricular valves is not suggestive of tamponade, bu t there is significant ?swinging motion of the heart. There is some systolic indent ation of the right atrium, and diastolic indentation of the right ventricle. Th e inferior vena cava is plethoric, and does not collapse with inspiration. Data s uggest early tamponade. ? 02/15/2019 bilateral lower extremity ultrasound for DVT Negative in both extremities 03/05/2019 DVT Bilateral Lower Extremity Duplex IMPRESSION Suboptimal visualization of the calf veins. ?The remaining v eins demonstrate normal compressibility and blood flow with no co nvincing evidence of DVT bilateral lower extremities. Subcutaneous edema. 03/06/19 1115 pneumatic compression stockings (ct,ut) 03/06/19 1115 activity - mobilize patient (ct,ut) 03/05/192029 vte non-pharmacologic prophylaxis - none indic ated (ct,oh) 03/05/192029 vte current anticoag therapy (ct,ut) VTE Prophylaxis: VTE prophylaxis appropriate Assessment/Plan IMPRESSION: - Large pericardial effusion/ pericarditis - Pericardial drain placed 03/06/2019 - Pulmonary embolism diagnosed 3 weeks ago - Pancytopenia -> followed by hematology at [facility] - Systemic Lupus Erythematosus/ RA -> on chronic 10mg/day pr ednisone - BMI 45 PLAN: - Restart anticoagulation when okay with cardiology. - Pericardial drain per cardiology - Continue to observe in ICU setting for now - Hold off on IVC filter, since bilateral extremity Dopplers are negative. - Continue daily chronic prednisone 10 mg daily - Continue colchicine and naproxen as per cardiology. Agree with talking to rheumatology in regards to treating pericarditis as a fla re of her SLE, specifically considering starting higher doses of prednisone . - Long talk with patient, all pharmacy and cardiology regard s to the management. Would DC Toradol since she is already on naproxe n in view that her creatinine is bumping up. - We will provide extra strength Tylenol PRN for pain and Li docaine patch - Trend BMP for kidney function. - Trend CBC for pancytopenia. - Bilateral lower extremity SCDs - We will continue to observe in ICU this setting especially if restarting anticoagulation in the setting of thrombocytopenia. This patient has a high probability of sudden, clinically si gnificant deterioration, which requires the highest level of physician preparedness to intervene urgently. I managed/supervised life or organ taylor pporting interventions that required frequent physician assessment. I devoted my full attention to the direct care of this patient for the am ount of time indicated below. Time I spent with family or surrogate(s) is included only if the patient was incapable of providing the necessary information or participating in medical decision making. Time devoted to teaching and to any procedures I billed separately is not included. Patient/Family Updated: Patient updated Code status: Full Discussed with Respiratory therapist, Registered Nurse, Phar macist and Residents while performing multidisciplinary rounds. Time spent providing critical care services: 30 minutes. SIGNATURE: Valerie Cantrell MD [facility] PAGER:[phone] DATE of SERVICE: March 07, 2019 TIME of SERVICE: 12:31 PM PROGRESS HNO ID: [id number] Normal 03-07-2019 [facility] Author: Elías Fournier [facility] Service: Cardiovascular Disease ([id number]) Author Type: Physician Type: Progress Notes Filed: 03/07/2019 1:32 PM Note Text: CVICU PROGRESS NOTE SERVICE DATE: 03/07/2019 SERVICE TIME: 7:34 AM Admission Date: 03/05/2019 AGE: [age] year old LOS: 2 days ACTIVE PROBLEM LIST Cardiomyopathy, Peripartum, Tramaine (Generalized Anxiety Disorder) Lichen Simplex Chronicus History of Depression Frequency of Urination Morbid Obesity (Hcc) History of lupus (HCC) Thrombocytopenia Affecting (Hcc) Pericardial Effusion History of Cardiomyopathy History of Pulmonary Embolism Pericardial Tamponade Thrombocytopenia (Hcc) Obesity, Class III, BMI >= 40 Malnutrition of Mild Degree (Hcc) Subjective 33 year old white female with a PMH of SLE/RA on prednisone, post cardiomyopathy with recovery, recent PE on apixaban presenti ng with worsening dyspnea and pleuritic chest pain found to have per icardial effusion and signs of eaarly tamponade on Echo . OVERNIGHT EVENTS: Patient got pericardiocentesis done yesterday . 1200ml fluid removed and sent for analaysis . Pericardial drain in place . Yesterday after the procedure the patient complained of left sided chest pain , under her left breast , sharp quality , increased on taking a deep breath . STAT EKG WNL , Chest Xray did now show any acute pr ocess. She was given Toradol and pain subsided. Overnight she did require 2 more doses of toradol . She has stayed in sinus tachycardia throughout her hospital course. HR between 110-120 , BP has been stable . Objective PHYSICAL EXAM VITAL SIGNS (last 24hrs min/max): Temp Av.4 ?C (97.5 ?F) Min: 36 ?C (96.8 ?F) Max: 36.7 ? C (98.1 ?F) Pulse Av.3 Min: 107 Max: 135 Cuff BP Min: 114/86 Max: 155/116 Pain Level: 6 24 hour Intake AND Output: Intake/Output Summary (Last 24 hours) at 03/07/2019 0734 Last data filed at 03/07/2019 0600 Gross per 24 hour Intake 30 ml Output 1580 ml Net -1550 ml General : Young white female well built and nourished HEENT : No thrush, no oral ulcers. No pallor or icterus. Neck :?Unable to see?JVD,?no?carotid bruits. No LAD. RS : Normal vesicular breaths sounds heard?bilaterally.?Insp iratory crackles heard in bilateral bases. Short inspiratory effort. , RR in 30s, saturating 97% on 3L.? CVS : S1, S2 heard. Tachycardic. Regular. No m/r/g. No tende rness to palpation. Abd :?soft, non tender, non distended. Extremities : Some pitting and non pitting edema in both leg s. Pulses palpable radial, DP/PT bilaterally.? Some swelling of her PIP joints in both hands, not much MCP joint involvement. No clear synovial thickening felt.? Neuro : Alert and oriented to time, place and person.? ? Lines, Drains, and Airways Line Peripheral 03/05/19 2200 Short Left Forearm 20 Gauge 1 day Drain Drain/Tube 03/06/19 1400 Assessment Pericardial Midline Ante rior Chest Drain #1 less than 1 day VENTILATOR INFORMATION: Settings: Patient Data: Weaning Data: INPATIENT MEDICATIONS : Current Facility-Administered Medications Medication Dose Route Frequency - perflutren lipid microspheres 1.1 mg/mL 1.3 mL injection ( DEFINITY) 1.3 mL INTRAVENOUS DIRECTED PRN - predniSONE 10 mg tab(s) (DELTASONE) 10 mg ORAL DAILY - potassium chloride 80-120 mEq oral liquid 80-120 mEq ORAL/ FEEDING TUBE PRN - potassium chloride iv piggyback 20 mEq/100 mL 20 mEq INTRA VENOUS PRN - magnesium sulfate in water 2 g in sterile water 50 ml 2 g INTRAVENOUS PRN - sodium glycerophosphate 45 mmol in NaCl 0.9% 250 mL (GLYCO PHOS) 45 mmol INTRAVENOUS PRN - calcium gluconate 4 g in NaCl 0.9% 250 mL 4 g INTRAVENOUS PRN - naproxen 500 mg tab(s) (NAPROSYN) 500 mg ORAL BID - colchicine 0.6 mg tab(s) 0.6 mg ORAL BID - DULoxetine 30 mg cap(s) (CYMBALTA) 30 mg ORAL BID - perflutren lipid microspheres 1.1 mg/mL 1.3 mL injection ( DEFINITY) 1.3 mL INTRAVENOUS DIRECTED PRN - melatonin 9 mg tab(s) 9 mg ORAL DAILY (8 PM) - ketorolac 15 mg injection (TORADOL) 15 mg INTRAVENOUS q 6 H PRN Data: BLOOD GAS: No results for input(s): VPH, VPC2, VPO2C, RESPHCO3, BASEX, R8CATTEC, PH, PCO2, RESPHCO3, BASEX, [id number] in the last 168 hours. Invalid input(s): PO2C CBC: Recent Labs 03/06/19 0600 WBC 3.89* HB 10.1* HCT 32.0* PLT 46* MCV 87.7 COAG: No results for input(s): APTT, INR in the last 168 barbara rs. BMP: Recent Labs 03/07/19 0558 03/06/19 0600 03/05/192039 GLUC 101* 97 95 NA 139 137 136 K 4.0 4.0 4.4 CHLOR 107 105 106 CO2 26 25 25 ANION 10 11 9 BUN 26* 20* 16 CREAT 1.10* 1.07* 0.80 CHEM: Recent Labs 03/07/19 0558 03/06/19 1620 03/06/19 0603/05/192039 ALB 2.0* -- 2.1* 2.1* TPROT 6.2* 6.6 5.9* 6.2* CA 8.1* -- 7.6* 7.7* HEPATIC: Recent Labs 03/07/19 0558 03/06/19 0603/05/192039 ALKPHOS 58 59 64 ALT 16 19 19 AST 27 19 18 TBILI 0.3 0.4 0.3 URINALYSIS:No results for input(s): PH, SPGR, UGLUC, UBILI, UKET, UHB, UPROT, UROBIL, UWBC, SSA in the last 168 hours. Invalid input(s): NITR CARDIAC: No results for input(s): CKTEST, CKMB, CKMBP, TROPT , PBNP in the last 168 hours. Active Hospital Problems Diagnosis - Pericardial tamponade - History of cardiomyopathy - History of pulmonary embolism 3 weeks ago - Thrombocytopenia (HCC) - Obesity, Class III, BMI >= 40 - Malnutrition of mild degree (HCC) - Pericardial effusion - History of lupus ([facility]) 10/21/2017 Patient states she was diagnosed with Lupus about 2 years ago. 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 She will call Dr Jara and let her know she is .TKRN - Morbid obesity (HCC) ASSESSMENT/PLAN # Pericardial effusion - 2/2 recent PE v SLE/RA v viral woodrow carditis - STAT echo at admission concerning for signs of early tampo nade -s/p pericardiocentesis and removal of 1200ml fluid - pericardial drain in place - Possibility of an SLE flare is there with her having some features. Will resume home prednisone for now, 10mg. CRP elevated . ES R elevated C3 , C4 low - Start naproxen 500m bid and colchicine 0.6mg daily for pos sible pericarditis. - Will discuss with lip cutter for high dose steroids po tentially ? # Pulmonary embolism, likely provoked.?-?On home apixaban. W as held for pericardiocentesis . - Need to decide on resuming AC now , less likely IVF as per icardial fluid was not hemorrhagic ? # Cough - possible pneumonia. Received a dose of levofloxaci n. Monitor for now. - Check procalcitonin although may be affected by pericardia l effusion, SLE/RA.?? ? # SLE, RA - As above.? - She may be having a SLE flare although hard to say. CRP is elevated . Also check C3, C4 for disease activity factors. Can consider checking SLEDAI-2K and BILAG scores and discussion with rheumatology about possibly treating a flare. - Continue prednisone 10mg for now.? Ayaz Silverman PGY1 Internal Medicine 2208 Patient was seen and discussed with resident. I have chase tijerina seen and examined the patient. I have reviewed labs, clinical data an d pertinent images. I agree with the documentation above. I'll summarize our mutual assessment and plan below. This is a 33-year-old female with history of systemic lupus erythematosus on chronic prednisone, recent diagnosis of acute PE 3 weeks ago on apixaban and previous history of cardiomyopathy. Patient presented to the ED on 03/05/2019 with shortness of breath. E chocardiogram was concerning for tamponade physiology. She then underwent pericardiocentesis with removal of 1.2 L serious pericardial effusion and placement of pericardial drain on 03/06/2019. The drain is st ill in place and she has had another 100 mL output since placement. Critical Care Documentation: The patient has the following o rgan/system impairment(s): Large pericardial effusion presenting as tamponade status po st pericardiocentesis and drain placement Systemic lupus erythematosus, concern for flare Recent left pulmonary embolism 3 weeks ago Pancytopenia Plan We'll keep the pericardial drain in place for today. Plan wi ll be to repeat echocardiogram tomorrow and if there is no significan t residual effusion, we'll remove the drain. Currently on colchicine, naproxen as well as Toradol (for br eakthrough pain). Will start on scheduled Protonix for GI protection. W e will try to wean off of Toradol. Will restart apixaban today. We'll have to watch for any sig ns of bleeding. Platelet count is 42 today however given recent PE , benefit of anticoagulation outweighs risk. We'll contact the patients outpatient lip cutter james ng increase in dose of prednisone. She is chronically on prednisone 10 mg d aily however I'm concerned that her presentation this time may be consist ent with acute SLE flare. This patient has a high probability of sudden, clinically si gnificant deterioration, which requires the highest level of physician preparedness to intervene urgently. I managed/supervised life or organ taylor pporting interventions that required frequent physician assessment. I devoted my full attention to the direct care of this patient for the am ount of time indicated below. Time I spent with family or surrogate(s) is included only if the patient was incapable of providing the necessary information or participating in medical decision making. Time devoted to teaching is not included. ?? Time spent providing critical care services: 40 minutes excl uding procedures. Elías Wahl MD, [facility] Cardiovascular Medicine Pager: [phone] March 07, 2019 hemogram/diff on 05-03-21 Abs Immature Grans 0.02 0.00-0.05 thou/cmm Normal 03-07-2019 [facility] (00 000) Comment: Performed By: #### CRP3 #### [facility] [address] [place] [address] Abs Neut (ANC) 3.26 1.56-6.13 thou/cmm Normal 03-07-2019 [facility] ([id number]) Comment: Performed By: #### CRP3 #### [facility] [address] [place] [id number] Abs. Baso 0.01 0.01-0.08 thou/cmm Normal 03-07-2019 [facility] ([id number]) Comment: Performed By: #### CRP3 #### [facility] [address] [place] [address] Abs. [place] 0.22 0.27-0.70 thou/cmm Low 03-07-2019 [facility] ([id number]) Comment: Performed By: #### CRP3 #### [facility] [address] [place], [place] [address] Basophils/100 WBC (Bld) 0.3 % Normal 2018 [facility] (24042) Comment: Performed By: #### CRP3 #### [facility] [address] [place], [place] [address] Eosinophils (Bld) 0.01 0.00-0.31 thou/cmm Normal 03-07-2019 [facility] [#/Vol] [facility] (28398) Comment: Performed By: #### CRP3 #### [facility] [address] [place], [place] [address] Eosinophils/100 WBC (Bld) 0.3 % Normal 02-16 [facility] (51665) Comment: Performed By: #### CRP3 #### [facility] [address] [place], [place] [address] Erythrocyte distribution 14.1 11.7-14.4 % Normal 03-07 [facility] width (RBC) [Ratio] System (39007) Comment: Performed By: #### CRP3 #### [facility] [address] [place], [place] [address] Hematocrit (Bld) [Volume 33.8 34.1-44.9 % Low 03-07 [facility] fraction] System (00 000) Comment: Performed By: #### CRP3 #### [facility] [address] [place], [place] [address] Hemoglobin (Bld) [Mass/Vol] 10.4 11.2-15.7 g/dL Low [facility] (00 000) Comment: Performed By: #### CRP3 #### [facility] [address] [place], [place] [address] Immature Grans 0.50 % Normal 03-07-2019 [facility] (25069) Comment: Performed By: #### CRP3 #### [facility] [address] [place], [place] [address] Lymphocytes (Bld) [#/Vol] 0.19 1.18-3.74 thou/cmm Low 02-16 [facility] (00 000) Comment: Performed By: #### CRP3 #### [facility] [address] [place], [place] [address] Lymphocytes/100 WBC (Bld) 5.1 % Normal 02-16 [facility] (98452) Comment: Performed By: #### CRP3 #### [facility] [address] [place], [place] [address] MCH (RBC) [Entitic mass] 27.3 25.6-32.2 pg Normal 03-07 [facility] (00 000) Comment: Performed By: #### CRP3 #### [facility] [address] [place], [place] [address] MCHC (RBC) [Mass/Vol] 30.8 31.6-34.8 % Low 03-07-20 19 [facility] (24059) Comment: Performed By: #### CRP3 #### [facility] [address] [place], [place] [address] MCV (RBC) [Entitic vol] 88.7 79.4-94.8 fl Normal 2018 [facility] (00 000) Comment: Performed By: #### CRP3 #### [facility] [address] [place], [place] [address] Monocytes/100 WBC (Bld) 5.9 % Normal 2018 [facility] ([id number]) Comment: Performed By: #### CRP3 #### [facility] [address] [place], [place] [address] Platelets (Bld) 42 182-369 thou/cmm Critically low 9 [facility] [#/Vol] Health [facility] tem (51733) Comment: Performed By: #### CRP3 #### [facility] [address] [place], [place] [address] RBC (Bld) [#/Vol] 3.81 3.93-5.22 mil/cmm Low 03-07-2019 [facility] (01547) Comment: Performed By: #### CRP3 #### [facility] [address] [place], [place] [address] RDW SD 45.4 36.4-46.3 fl Normal 03-07-2019 [facility] (49318) Comment: Performed By: #### CRP3 #### [facility] [address] [place], [place] [address] Seg Neutrophil 87.9 % Normal 03-07-2019 [facility] (55040) Comment: Performed By: #### CRP3 #### [facility] [address] [place], [place] [address] WBC (Bld) [#/Vol] 3.71 3.98-10.04 thou/cmm Low 03-07-2019 [facility] (78301) Comment: Performed By: #### CRP3 #### [facility] [address] [place], [place] [address] comprehensive panel on 2019-03-07 ALP [Catalytic activity/Vol] 58 45-117 U/L Normal 0 03-07-2019 [facility] (00 000) Comment: Performed By: #### CRP3 #### [facility] [address] [place], [place] [address] Bilirubin [Mass/Vol] 0.3 0.2-1.0 mg/dL Normal 9 [facility] (58435) Comment: Performed By: #### CRP3 #### [facility] [address] [place], [place] [address] Protein [Mass/Vol] 6.2 6.4-8.2 g/dL Low 03-07-2019 [facility] (31472) Comment: Performed By: #### CRP3 #### [facility] [address] [place], [place] [address] ALT [Catalytic activity/Vol] 16 12-78 U/L Normal 0 03-07-2019 [facility] (00 000) Comment: Performed By: #### CRP3 #### [facility] [address] [place], [place] [address] AST [Catalytic activity/Vol] 27 15-37 U/L Normal 0 03-07-2019 [facility] (00 000) Comment: Performed By: #### CRP3 #### [facility] [address] [place], [place] [address] Creatinine [Mass/Vol] 1.10 0.51-0.95 mg/dL High 03-07-20 [facility] (00 000) Comment: Performed By: #### CRP3 #### [facility] [address] [place], [place] [address] Albumin [Mass/Vol] 2.0 3.4-5.0 g/dL Low 03-07-2019 [facility] (55216) Comment: Performed By: #### CRP3 #### [facility] [address] [place], [place] [address] Anion gap [Moles/Vol] 10 8-16 mmol/L Normal 03-07-20 19 [facility] ([id number]) Comment: Performed By: #### CRP3 #### [facility] [address] [place], [place] [address] Calcium [Mass/Vol] 8.1 8.5-10.1 mg/dL Low 03-07-2019 [facility] ([id number]) Comment: Performed By: #### CRP3 #### [facility] [address] [place], [place] [address] CO2 [Moles/Vol] 26 21-32 mEq/L Normal 03-07-2019 [facility] ([id number]) Comment: Performed By: #### CRP3 #### [facility] [address] [place], [place] [address] Urea nitrogen [Mass/Vol] 26 7-18 mg/dL High 03-07 [facility] ([id number]) Comment: Performed By: #### CRP3 #### [facility] [address] [place], [place] [address] Glucose [Mass/Vol] 101 70-99 mg/dL High 03-07-2019 [facility] ([id number]) Comment: Performed By: #### CRP3 #### [facility] [address] [place], [place] [address] Chloride [Moles/Vol] 107 98-107 mEq/L Normal 9 [facility] ([id number]) Comment: Performed By: #### CRP3 #### [facility] [address] [place], [place] [address] Potassium [Moles/Vol] 4.0 3.5-5.1 mEq/L Normal 03-07-20 [facility] ([id number]) Comment: Performed By: #### CRP3 #### [facility] [address] [place], [place] [address] Sodium [Moles/Vol] 139 136-145 mEq/L Normal 03-07-2019 [facility] ([id number]) Comment: Performed By: #### CRP3 #### [facility] [address] [place], [place] [address] total protein on 05-03-20 Protein [Mass/Vol] 6.6 6.4-8.2 g/dL Normal 03-06-2019 [facility] ([id number]) Comment: Performed By: #### CRP3 #### [facility] [address] [place], [place] [address] sed rate on 2019-02 Sed Rate 76 0-20 mm/hr High 03-06-2019 [facility] ([id number]) Comment: Performed By: #### ESR #### [address] [address] progress on 2019-02 PROGRESS HNO ID: [id number] Normal 03-06-2019 [facility] Author: Valerie Tirado [facility] Service: Pulmonary Disease ([id number]) Author Type: Physician Type: Progress Notes Filed: 03/06/2019 1:14 PM Note Text: CRITICAL CARE PROGRESS NOTE SERVICE DATE: March 06, 2019 SERVICE TIME: 12:53 PM Admission Date: 03/05/2019 AGE: [age] year old LOS: 1 days REASON FOR ICU ADMISSION: Large pericardial effusion Subjective CC: Can I eat? I'm very hungry. OVERNIGHT EVENTS: No overnight events Objective PAST MEDICAL HISTORY Diagnosis Date - Abnormal glandular Papanicolaou smear of cervix Abn. Pap smear (cervix) - Cardiomyopathy 01/21/2010 post - Carpal tunnel syndrome - Dysthymic disorder Depression (non-psychotic) - Gestational diabetes mellitus, antepartum 03/16/2014 - Lupus (HCC) - Migraine, unspecified, with intractable migraine, so state d, without mention of status migrainosus Migraine - Obesity - depression - Psoriatic arthritis (HCC) - Rheumatoid arthritis (HCC) - Systemic lupus erythematosus (HCC) PAST SURGICAL HISTORY Procedure Laterality Date - ANESTH, SECTION 03/22/2014 - APPENDECTOMY - DELIVERY ONLY 01/14/2010 , low transverse - COLPOSCOPY (VAGINOSCOPY) Colposcopy - DANVT 11/2017 - LAP CHOLECYSTOENTEROSTOMY 06/2011 Social History Socioeconomic History Marital status: Spouse name: Not on file Number of children: 2 Years of education: 13 Highest education level: Not on file Social Needs Financial resource strain: Not on file Food insecurity - worry: Not on file Food insecurity - inability: Not on file Transportation needs - medical: Not on file Transportation needs - non-medical: Not on file Occupational 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 Temp (24hrs), Av.3 ?C (97.4 ?F), Min:36.2 ?C (97.2 ?F), Max:36.5 ?C (97.7 ?F) Vital signs reviewed. 24 hour Intake AND Output: Intake/Output Summary (Last 24 hours) at 03/06/2019 1253 Last data filed at 03/05/2019 2300 Gross per 24 hour Intake 120 ml Output 300 ml Net -180 ml PHYSICAL EXAM: ENVIRONMENTAL SCIENTISTS: Alert and oriented HEENT: No oral lesions, no oral ulcers, dentition is good, Eyes: PER Neck: Unremarkable; No adenopathy or JVD Cardiovascular: Regular rhythm Respiratory: Clear to auscultation Abdomen: Soft and Nontender Extremities: Edema- No Skin: Abnormalities- Yes, mildly diaphoretic VENTILATOR INFORMATION: Not applicable. WEANING DATA: Settings: Patient Data: Weaning Data: INDWELLING CATHETERS: Lines, Drains, and Airways Line Peripheral 03/05/19 2200 Short Left Forearm 20 Gauge less th an 1 day INPATIENT MEDICATIONS: Current Facility-Administered Medications Medication Dose Route Frequency - perflutren lipid microspheres 1.1 mg/mL 1.3 mL injection ( DEFINITY) 1.3 mL INTRAVENOUS DIRECTED PRN - predniSONE 10 mg tab(s) (DELTASONE) 10 mg ORAL DAILY - potassium chloride 80-120 mEq oral liquid 80-120 mEq ORAL/ FEEDING TUBE PRN - potassium chloride iv piggyback 20 mEq/100 mL 20 mEq INTRA VENOUS PRN - magnesium sulfate in water 2 g in sterile water 50 ml 2 g INTRAVENOUS PRN - sodium glycerophosphate 45 mmol in NaCl 0.9% 250 mL (GLYCO PHOS) 45 mmol INTRAVENOUS PRN - calcium gluconate 4 g in NaCl 0.9% 250 mL 4 g INTRAVENOUS PRN - naproxen 500 mg tab(s) (NAPROSYN) 500 mg ORAL BID - colchicine 0.6 mg tab(s) 0.6 mg ORAL BID - [START ON 03/07/2019] DULoxetine 30 mg cap(s) (CYMBALTA) 30 mg ORAL BID NUTRITION: Enteral Feeds: No DATA: BLOOD GAS: No results for input(s): VPH, VPC2, VPO2C, RESPHCO3, BASEX, G4NVVDCH, PH, PCO2, RESPHCO3, BASEX, B5AUSJBI in the last 168 hours. Invalid input(s): PO2C CBC: Recent Labs 03/06/19599 WBC 3.89* HB 10.1* HCT 32.0* PLT 46* MCV 87.7 COAG: No results for input(s): APTT, INR in the last 168 barbara rs. BMP: Recent Labs 03/06/1959903/05/192039 GLUC 97 95 NA 137 136 K 4.0 4.4 CHLOR 105 106 CO2 25 25 ANION 11 9 BUN 20* 16 CREAT 1.07* 0.80 CHEM: Recent Labs 03/06/1959903/05/192039 ALB 2.1* 2.1* TPROT 5.9* 6.2* CA 7.6* 7.7* HEPATIC: Recent Labs 03/06/1959903/05/192039 ALKPHOS 59 64 ALT 19 19 AST 19 18 TBILI 0.4 0.3 URINALYSIS: No results for input(s): PH, SPGR, UGLUC, UBILI, UKET, UHB, UPROT, UROBIL, UWBC, SSA in the last 168 hours. Invalid input(s): NITR 03/06/2019 ?8:29 AM - Interface, Ag Oru Ib Component Results Component Value Range AND Units Status Performing Lab Procalcitonin 0.11 ng/mL Final [facility] CARDIAC: No results for input(s): CKTEST, CKMB, CKMBP, TROPT , PBNP in the last 168 hours. STAT ECHO - 03/05/19 Left ventricular systolic function is normal. EF = 55 ? 5% (visual est.) - There is large circumferential pericardial effusion measur ing 4.9 cm. It is most pronounced?around the left ventricle. There appea rs to be some echogenic material within the effusion.The inflow velocity v ariation across the atrial ventricular valves is not suggestive of tamponade, bu t there is significant ?swinging motion of the heart. There is some systolic indent ation of the right atrium, and diastolic indentation of the right ventricle. Th e inferior vena cava is plethoric, and does not collapse with inspiration. Data s uggest early tamponade. ? 02/15/2019 bilateral lower extremity ultrasound for DVT Negative in both extremities 03/05/2019 DVT Bilateral Lower Extremity Duplex IMPRESSION Suboptimal visualization of the calf veins. ?The remaining v eins demonstrate normal compressibility and blood flow with no co nvincing evidence of DVT bilateral lower extremities. Subcutaneous edema. 03/06/19 1115 pneumatic compression stockings ([place], [place]) 03/06/19 1115 activity - mobilize patient ([place], [place]) 03/05/192029 vte non-pharmacologic prophylaxis - none indic ated ([place]) 03/05/192029 vte current anticoag therapy ([place], [place]) VTE Prophylaxis: VTE prophylaxis appropriate Assessment/Plan IMPRESSION: - Large pericardial effusion/ pericarditis - Pulmonary embolism diagnosed 3 weeks ago - Pancytopenia -> followed by hematology at [facility] - Systemic Lupus Erythematosus/ RA -> on chronic 10mg/day pr ednisone - BMI 45 PLAN: - Hold Eliquis - Plan is pericardiocentesis in catheter lab tomorrow. - Continue to observe in ICU setting for now - Hold off on IVC filter, since bilateral extremity Dopplers are negative. - Attempt to restart anticoagulation after pericardiocentesi s complete, and in the pericardial effusion is not hemorrhagic. - Continue daily chronic prednisone 10 mg daily - Continue colchicine and naproxen as per cardiology. - Bilateral lower extremity SCDs This patient has a high probability of sudden, clinically si gnificant deterioration, which requires the highest level of physician preparedness to intervene urgently. I managed/supervised life or organ taylor pporting interventions that required frequent physician assessment. I devoted my full attention to the direct care of this patient for the am ount of time indicated below. Time I spent with family or surrogate(s) is included only if the patient was incapable of providing the necessary information or participating in medical decision making. Time devoted to teaching and to any procedures I billed separately is not included. Patient/Family Updated: Patient updated Code status: Full Discussed with Respiratory therapist, Registered Nurse, Phar macist and Residents while performing multidisciplinary rounds. Time spent providing critical care services: 30 minutes. SIGNATURE: Valerie Cantrell MD [facility] PAGER:[id number] DATE of SERVICE: March 06, 2019 TIME of SERVICE: 12:53 PM PROGRESS HNO ID: [id number] Normal 03-06-2019 [facility] Author: [facility] Service: Cardiovascular Disease ([id number]) Author Type: Physician Type: Progress Notes Filed: 03/06/2019 12:44 PM Note Text: CVICU PROGRESS NOTE SERVICE DATE: 03/06/2019 SERVICE TIME: 7:29 AM Admission Date: 03/05/2019 AGE: [age] year old LOS: 1 days ACTIVE PROBLEM LIST Cardiomyopathy, Peripartum, Tramaine (Generalized Anxiety Disorder) Lichen Simplex Chronicus History of Depression Frequency of Urination Morbid Obesity (Hcc) History of lupus (HCC) Thrombocytopenia Affecting (Hcc) Pericardial Effusion History of Cardiomyopathy History of Pulmonary Embolism Pericardial Tamponade Thrombocytopenia (Hcc) Subjective 33 year old white female with a PMH of SLE/RA on prednisone, post cardiomyopathy with recovery, recent PE on apixaban presenti with worsening dyspnea and pleuritic chest pain found to have per icardial effusion and signs of eaarly tamponade on Echo . OVERNIGHT EVENTS: Patient still complains of Sob and pleuritic hcest pain on t aking deep breaths . She has been having fevers / chills and cough with sputum pr oduction . 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 She al so reports having some joint pains since 1 week . She has also been hav ing leg swelling . Objective PHYSICAL EXAM VITAL SIGNS (last 24hrs min/max): Temp Av.2 ?C (97.2 ?F) Min: 36.2 ?C (97.2 ?F) Max: 36.2 ?C (97.2 ?F) Pulse Av.1 Min: 102 Max: 126 Cuff BP Min: 126/89 Max: 153/127 Pain Level: 0 24 hour Intake AND Output: Intake/Output Summary (Last 24 hours) at 03/06/2019 0729 Last data filed at 03/05/2019 2300 Gross per 24 hour Intake 120 ml Output 300 ml Net -180 ml General : Young white female well built and nourished sittin g in bed in mild distress, tachypneic. HEENT : No thrush, no oral ulcers. No pallor or icterus. Neck : Unable to see JVD, no carotid bruits. No LAD. RS : Normal vesicular breaths sounds heard bilaterally. Insp iratory crackles heard in bilateral bases. Short inspiratory effort. Accessory neck muscle use, RR in 30s, saturating 97% on 3L. CVS : S1, S2 heard. Tachycardic. Regular. No m/r/g. No tende rness to palpation. Abd : soft, non tender, non distended. Extremities : Some pitting and non pitting edema in both leg s. Pulses palpable radial, DP/PT bilaterally. Some swelling of her PIP joints in both hands, not much MCP joint involvement. No clear synovial thickening felt. Neuro : Alert and oriented to time, place and person. Lines, Drains, and Airways Line Peripheral 03/05/19 2200 Short Left Forearm 20 Gauge less th an 1 day VENTILATOR INFORMATION: Settings: Patient Data: Weaning Data: INPATIENT MEDICATIONS : Current Facility-Administered Medications Medication Dose Route Frequency - perflutren lipid microspheres 1.1 mg/mL 1.3 mL injection ( DEFINITY) 1.3 mL INTRAVENOUS DIRECTED PRN - predniSONE 10 mg tab(s) (DELTASONE) 10 mg ORAL DAILY - DULoxetine 60 mg cap(s) (CYMBALTA) 60 mg ORAL DAILY - potassium chloride 80-120 mEq oral liquid 80-120 mEq ORAL/ FEEDING TUBE PRN - potassium chloride iv piggyback 20 mEq/100 mL 20 mEq INTRA VENOUS PRN - magnesium sulfate in water 2 g in sterile water 50 ml 2 g INTRAVENOUS PRN - sodium glycerophosphate 45 mmol in NaCl 0.9% 250 mL (GLYCO PHOS) 45 mmol INTRAVENOUS PRN - calcium gluconate 4 g in NaCl 0.9% 250 mL 4 g INTRAVENOUS PRN - naproxen 500 mg tab(s) (NAPROSYN) 500 mg ORAL BID - colchicine 0.6 mg tab(s) 0.6 mg ORAL DAILY NUTRITION: Data: BLOOD GAS: No results for input(s): VPH, VPC2, VPO2C, RESPHCO3, BASEX, M1LLMXET, PH, PCO2, RESPHCO3, BASEX, K1QUCMGM in the last 168 hours. Invalid input(s): PO2C CBC:No results for input(s): WBC, HB, HCT, PLT, MCV, RDWCV, NEUTP, ABSNEUT, LYMPHP, MONOP, EODINP in the last 168 hours. COAG: No results for input(s): APTT, INR in the last 168 barbara rs. BMP: Recent Labs 03/06/1959903/05/192039 GLUC 97 95 NA 137 136 K 4.0 4.4 CHLOR 105 106 CO2 25 25 ANION 11 9 BUN 20* 16 CREAT 1.07* 0.80 CHEM: Recent Labs 03/06/1959903/05/192039 ALB 2.1* 2.1* TPROT 5.9* 6.2* CA 7.6* 7.7* HEPATIC: Recent Labs 03/06/1959903/05/192039 ALKPHOS 59 64 ALT 19 19 AST 19 18 TBILI 0.4 0.3 URINALYSIS:No results for input(s): PH, SPGR, UGLUC, UBILI, UKET, UHB, UPROT, UROBIL, UWBC, SSA in the last 168 hours. Invalid input(s): NITR CARDIAC: No results for input(s): CKTEST, CKMB, CKMBP, TROPT , PBNP in the last 168 hours. EKG RESULTS: Sinus tachycardia , low voltage QRS ECHOCARDIOGRAMS: Left ventricular systolic function is normal. EF = 55 ? 5% ( visual est.) - There is large circumferential pericardial effusion measur ing 4.9 cm. It is most pronounced?around the left ventricle. There appea rs to be some echogenic material within the effusion.The inflow velocity v ariation across the atrial ventricular valves is not suggestive of tamponade, bu t there is significant ?swinging motion of the heart. There is some systolic indent ation of the right atrium, and diastolic indentation of the right ventricle. Th e inferior vena cava is plethoric, and does not collapse with inspiration. Data s uggest early tamponade. ? Active Hospital Problems Diagnosis - Pericardial tamponade - History of cardiomyopathy - History of pulmonary embolism 3 weeks ago - Thrombocytopenia (HCC) - Pericardial effusion - History of lupus (HCC) 10/21/2017 Patient states she was diagnosed with Lupus about 2 years ago. 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 She will call Dr Jara and let her know she is .TKRN - Morbid obesity (HCC) ASSESSMENT/PLAN : # Pericardial effusion - 2/2 recent PE v SLE/RA v viral woodrow carditis - STAT echo concerning for signs of early tamponade - Clinically has concerning signs with low pulse pressure, s ignificant tachycardia, tachypnea. Kussmaul's sign negative. No distend ed neck veins. Hemodynamically stable. - Hold apixaban for now. With her being on anticoagulation, low platelet count, pericardiocentesis will be with elevated risk- Pulmon ology also consulted - Possibility of an SLE flare is there with her having some features. Will resume home prednisone for now, 10mg. CRP elevated . C3 , C4 pending . - Start naproxen 500m bid and colchicine 0.6mg daily for pos sible pericarditis. - Likely pericardial fluid drainage today . ? # Pulmonary embolism, likely provoked. - On home apixaban. H old for now. - Patient reports taking OCP upto around a week before diagn osis of PE. Denies other risk factors. SLE would also put her at a highe r risk. - Was supposed to have 4 months AC per her. Will have to cla rify this later on. ? # Cough - possible pneumonia. Received a dose of levofloxaci n. Monitor for now. - Check procalcitonin although may be affected by pericardia l effusion, SLE/RA. ? # SLE, RA - As above. - She may be having a SLE flare although hard to say. CRP is elevated . Also check C3, C4 for disease activity factors. Can consider checking SLEDAI-2K and BILAG scores and discussion with rheumatology about possibly treating a flare. - Continue prednisone 10mg for now. ? # History of post cardiomyopathy Critical Care Documentation: The patient has the following o rgan/system impairment(s): *Large pericardial effusion with early tamponade. * Systemic Lupus erythematosis, with possible flare * Recent acute PE * Acute thrombocytopenia This patient has a high probability of sudden, clinically si gnificant deterioration, which requires the highest level of physician preparedness to intervene urgently. I managed/supervised life or organ taylor pporting interventions that required frequent physician assessment. I devoted my full attention to the direct care of this patient for the am ount of time indicated below. Time I spent with family or surrogate(s) is included only if the patient was incapable of providing the necessary information or participating in medical decision making. Time devoted to teaching is not included. ?? Time spent providing critical care services: 60 minutes excl uding procedures. I discussed with Dr Knutson in detail. Her platelets are sti ll on the lower side. She has been tachycardic, but has not had any he modynamic instability. He will consider doing her pericardioscentesis this afternoon. If not, she will be on for tomorrow morning. Ayaz Silverman PGY1 Internal Medicine 2208 procalcitonin on 05-03-20 Procalcitonin 0.11 ng/mL Normal 03-06-2019 [facility] ([id number]) Comment: Result Comment: Levels <0.50 ng/mL represent a low risk of severe sepsis and/or septic shock, while levels > 2.00 ng/mL represent an elevated risk of severe sepsis and/or septic shock. Levels <0.50 ng/mL do not exclude infection, as infections or systemic infections in early stages (<6hrs) can be associated with low concentrations. Levels betwe en 0.50-2.00 ng/mL should be interpreted in the clinical context of the patient, as a variety of conditions such as kendall, trauma, surgery and severe cardiogenic shock can cause procalcitonin elevations. Performed By: #### PRCAS ### # [facility] [address] [place] [address] plan of care on 06-22-20 PLAN OF CARE HNO ID: [id number] Normal 03-06-20 [facility] Author: Cayla Viera (Pharmacist) [facility] Service: ? ([id number]) Author Type: Pharmacist Type: Plan of Care Filed: 03/06/2019 12:13 PM Note Text: MEDICATION HISTORY AND MEDICATION RECONCILIATION Patient Name:Leanna Franco : 1985 Source of history:Patient: Reliability of source: Appears re liable, clearly identified: Medication name, Medication dose and Med ication frequency and Pharmacy records: [facility] via Epic fill history Medication Nonadherence Identified: No barriers noted The above information represents the best possible medicatio n history: Yes Reconciliation completed? Yes All FINGERNAIL FORMER medications addressed by LIP--> duloxetine and prednisone already started, duloxetine dose m ust be updated; furosemide ordered PRN at home, hold here. Additional comments: Patient was recently started on PRN furosemide 20 mg; she brandon s needed to take it twice since it was first prescribed on 02/21/19 (of no te; it was prescribed once daily according to the script; but patient s tates she was told to take it PRN LE swelling). Verified that she takes duloxetine 30 mg one capsule BID, no t 2 capsules once daily as the script states. 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 Yes furosemide (LASIX) 20 mg tablet Take 20 mg by mouth as neede d (fluid overload). Yes predniSONE (DELTASONE) 10 mg tablet Take 10 mg by mouth once daily as needed (for RA symptoms). Yes apixaban (ELIQUIS) 5 mg tab(s) Take 5 mg by mouth twice susan y. Yes BIOTIN ORAL Take 1 tablet by mouth once daily. Yes Duplicate Wrong dose Wrong dose CAYLA VIERA, PHARMACIST March 06, 2019 12:02 PM ph, body fluid on 2 pH, Body Fluid 7.790 Normal 03-06-2019 [facility] ([id number]) Comment: Performed By: #### CRP3 #### [facility] [address] [place] [address] nutrition on 03-06 NUTRITION HNO ID: [id number] Normal 03-06-2019 [place] Author: Betty Garcia) DANIS Serna General Service: Nutrition Therapy Medical Author Type: Registered Dietitian Center Type: Nutrition ([id number] 00) Filed: 03/06/2019 3:04 PM Note Text: NUTRITION THERAPY INITIAL ASSESSMENT SERVICE DATE: 03/06/2019 SERVICE TIME: 2:51 PM RECOMMENDED MALNUTRITION DIAGNOSIS: MILD PROTEIN-CALORIE MAL NUTRITION In the context of Acute Illness or Injury based on: Insufficient Energy Intake: <75% for >7 days NUTRITION CARE PLAN: Problem, Etiology and Signs/Symptoms: Suboptimal oral intake related to decreased oral intake as e videnced by patient interview Intervention: Advance diet as tolerated to goal Heart Healthy Coordination of Care: Nursing Monitor and Evaluation: Goal: Meet >75% of estimated needs Monitor fluid/electrolyte balance Monitor labs, I/Os, vital signs, weight Discharge Nutrition Recommendations: Diet: Heart Healthy Chart reviewed for weight loss and poor po prior to admissio n Per HPI: 33 yo female presented with shortness of breath fro [facility]. Noted pericardial effusion 2/2 recnet PE vs SLE/RA vs viral pericarditis, possible hemorrhagic effusion with early tampo nade. ACTIVE PROBLEM LIST Cardiomyopathy, Peripartum, Tramaine (Generalized Anxiety Disorder) Lichen Simplex Chronicus History of Depression Frequency of Urination Morbid Obesity (Hcc) History of lupus (HCC) Thrombocytopenia Affecting (Hcc) Pericardial Effusion History of Cardiomyopathy History of Pulmonary Embolism Pericardial Tamponade Thrombocytopenia (Hcc) Obesity, Class III, BMI >= 40 PAST MEDICAL HISTORY Diagnosis Date - Abnormal glandular Papanicolaou smear of cervix Abn. Pap smear (cervix) - Cardiomyopathy 01/21/2010 post - Carpal tunnel syndrome - Dysthymic disorder Depression (non-psychotic) - Gestational diabetes mellitus, antepartum 03/16/2014 - Lupus (HCC) - Migraine, unspecified, with intractable migraine, so state d, without mention of status migrainosus Migraine - Obesity - depression - Psoriatic arthritis (HCC) - Rheumatoid arthritis (HCC) - Systemic lupus erythematosus (HCC) PAST SURGICAL HISTORY Procedure Laterality Date - ANESTH, SECTION 03/22/2014 - APPENDECTOMY - DELIVERY ONLY 01/14/2010 , low transverse - COLPOSCOPY (VAGINOSCOPY) Colposcopy - DANVT 11/2017 - LAP CHOLECYSTOENTEROSTOMY 06/2011 Social History Socioeconomic History Marital status: Spouse name: Not on file Number of children: 2 Years of education: 13 Highest education level: Not on file Social Needs Financial resource strain: Not on file Food insecurity - worry: Not on file Food insecurity - inability: Not on file Transportation needs - medical: Not on file Transportation needs - non-medical: Not on file Occupational 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: [employer] Tobacco Use Smoking status: Never Smoker Smokeless tobacco: Never Used Substance and Sexual Activity Alcohol use: Yes Comment: social alcohol use, not while Drug use: No Sexual activity: Yes Partners: Male Comment: vasectomy Other Topics Concerns: Not on file Social History Narrative Not on file Orders Placed This Encounter DIET NPO Standing Status: Standing Number of Occurrences: 1 Lines and Drains: Peripheral 03/05/19 2200 Short Left Forearm 20 Gauge (Active ) Nutritional Intake Prior to Admission: <75% estimated energy needs over the past 2 month(s) reports decline in po due to stress GI symptoms: none Nutrition Abdominal Exam: abdomen is nondistended and bowel sounds are normal, per clinical documentation ANTHROPOMETRICS Height: 165.1 cm (5' 5) Admission Weight: 124 kg (273 lb 5.9 oz) Current Weight: 124 kg (273 lb 5.9 oz) Body mass index is 45.49 kg/m?. class 3 obesity Weight has decreased by 5.3 kg over 1 months representing 4. 1 % weight change potentially clinically significant but does not meet criteria to support a malnutrition diagnosis Last Wt 03/05/19 : 124 kg (273 lb 5.9 oz) 01/25/19 : 129.3 kg (285 lb) - 1 month 01/06/19 : 128.8 kg (284 lb) 11/30/18 : 129.5 kg (285 lb 6.4 oz) 11/14/18 : 129.5 kg (285 lb 6.4 oz) 05/09/18 : 128.8 kg (284 lb) 04/18/18 : 132 kg (291 lb) 03/23/18 : 133.8 kg (295 lb) 02/17/18 : 135.4 kg (298 lb 9.6 oz) 12/13/17 : (!) 142.9 kg (315 lb) 12/07/17 : (!) 144.3 kg (318 lb 3.2 oz) 11/01/17 : (!) 153.8 kg (339 lb) 06/12/16 : (!) 152.4 kg (336 lb) 07/10/14 : (!) 137 kg (302 lb) 05/10/14 : 133.8 kg (295 lb) 05/03/14 : 133.2 kg (293 lb 9.6 oz) 04/11/14 : 133.7 kg (294 lb 12.8 oz) 03/22/14 : (!) 155.1 kg (342 lb) 03/20/14 : (!) 155.4 kg (342 lb 9.6 oz) 03/15/14 : (!) 154.2 kg (340 lb) [place] Body Weight: 56.8kg Resting Metabolic Rate: 1937 Estimated kilocalorie needs: 7343-7093 kilocalories determin ed by 25-30 kcal/kg Estimated protein needs: 68-85 grams determined by 1.2-1.5 g /kg [place]on weight Estimated fluid needs: 5006-4777 milliliters based on 1 mL p er kcal NUTRITION FOCUSED PHYSICAL EXAM: Subcutaneous Fat Loss Orbital No fat loss Triceps No fat loss Mid-axillary at the iliac crest Unable to determine at this time Muscle Loss Locations: Temporalis No muscle loss Pectoralis No muscle loss Deltoids No muscle loss Interosseous No muscle loss Latissimus dorsi, trapezius Unable to determine at this time Quadriceps Unable to determine at this time Gastrocnemius Unable to determine at this time Potential micronutrient deficiency revealed in: No deficienc y identified Edema: No Ascites: No Assessment of Functional Status: No functional impairment, n ormal with no limitations Temperature Max in 24 hours: Temp (24hrs), Av.3 ?C (97.3 ?F), Min:36.2 ?C (97.2 ?F), Max:36.3 ?C (97.3 ?F) BP 124/105 Pulse 109 Temp 36.3 ?C (97.3 ?F) Resp (!) 3 5 Ht 165.1 cm (5' 5) Wt 124 kg (273 lb 5.9 oz) SpO2 100% B VA 45.49 kg/m? Recent Labs 03/06/19 0600 03/05/19 2040 GLUC 97 95 BUN 20* 16 CREAT 1.07* 0.80 NA 137 136 K 4.0 4.4 CHLOR 105 106 CO2 25 25 ALB 2.1* 2.1* CRP -- 9.11* HB 10.1* -- HCT 32.0* -- WBC 3.89* -- Potential Signs of Inflammation: hypoalbuminemia, high CRP, tachycardia, imaging studies, acute post-operative and chronic condition ALLERGIES Allergen Reactions - Codeine GI Upset States sharp stomach pains - Doxycycline Hives - Percocet [Oxycodone* Hives, Anaphylaxis - Clindamycin Rash - Morphine Swelling uvula swelling - Penicillins Rash Current Facility-Administered Medications Medication Dose Route Frequency - perflutren lipid microspheres 1.1 mg/mL 1.3 mL injection ( DEFINITY) 1.3 mL INTRAVENOUS DIRECTED PRN - predniSONE 10 mg tab(s) (DELTASONE) 10 mg ORAL DAILY - DULoxetine 60 mg cap(s) (CYMBALTA) 60 mg ORAL DAILY - potassium chloride 80-120 mEq oral liquid 80-120 mEq ORAL/ FEEDING TUBE PRN - potassium chloride iv piggyback 20 mEq/100 mL 20 mEq INTRA VENOUS PRN - magnesium sulfate in water 2 g in sterile water 50 ml 2 g INTRAVENOUS PRN - sodium glycerophosphate 45 mmol in NaCl 0.9% 250 mL (GLYCO PHOS) 45 mmol INTRAVENOUS PRN - calcium gluconate 4 g in NaCl 0.9% 250 mL 4 g INTRAVENOUS PRN - naproxen 500 mg tab(s) (NAPROSYN) 500 mg ORAL BID Date 03/05/19699 - 03/06/1965803/06/19699 - 03/07/19 0659 Shift 5859-7025 6121-8929 9207-3796 24 Hour Total 5760-0542 0960-9602 7321-6655 24 Hour Total INTAKE PO 120 120 PO 120 120 Shift Total 120 120 OUTPUT Urine 300 300 Void (ml) 300 300 Shift Total 300 300 Weight (kg) 124 124 124 124 124 124 124 Vitamin and Mineral Labs in the past year:No results for inp ut(s): CHROMIUM, COPPER, MANGANESE, SELENIUM, VITAMINA, VITB1, VITB 2, VITB6, B12, METHYLMAL, VITD25, VITAMINE, VITAK, ZINC, TIBC, FE, KHALIF in t he last 8784 hours. MNT Billing Type: Initial Assess/15 min 3 units SIGNATURE: Betty Serna RD, LILY PATIENT NAME: Kendra Franco DATE: March 06, 2019 TIME: 10:29 AM PAGER: [phone] ldh,body fluid on Specimen type Nom (Spec) Pericardial Normal [facility] (00 000) Comment: Performed By: #### CRP3 #### [facility] [address] [place], [place] [address] ld,total blood on LD,Total Blood 208 84-246 U/L Normal 03-06-2019 [facility] (84606) Comment: Performed By: #### LDH #### [facility] [address] [place], [place] [address] hemogram/diff on 05-03-20 Abs Immature Grans 0.04 0.00-0.05 thou/cmm Normal 03-06-2019 [facility] (00 000) Comment: Performed By: #### CBCD1 ### # [facility] [address] [place], [place] [address] Abs Neut (ANC) 3.36 1.56-6.13 thou/cmm Normal 03-06-2019 [facility] (93329) Comment: Performed By: #### CBCD1 ### # [facility] [address] [place], [place] [address] Abs. Baso 0.00 0.01-0.08 thou/cmm Low 03-06-2019 [facility] (63604) Comment: Result Comment: Smear scanne d; tech agrees with automated differential Performed By: #### CBCD1 ### # [facility] [address] [place], [place] [address] Abs. [place] 0.28 0.27-0.70 thou/cmm Normal 03-06-2019 [facility] (82754) Comment: Performed By: #### CBCD1 ### # [address] [address] Basophils/100 WBC (Bld) 0.0 % Normal 2018 [facility] (27233) Comment: Performed By: #### CBCD1 ### # [address] [address] Eosinophils (Bld) 0.00 0.00-0.31 thou/cmm Normal 03-06-2019 [facility] [#/Vol] Health Sys tem (39166) Comment: Performed By: #### CBCD1 ### # [address] [address] Eosinophils/100 WBC (Bld) 0.0 % Normal 02-16 [facility] (62359) Comment: Performed By: #### CBCD1 ### # [facility] [address] [place], [place] [address] Erythrocyte distribution 14.0 11.7-14.4 % Normal 03-06 [facility] width (RBC) [Ratio] System (25891) Comment: Performed By: #### CBCD1 ### # [address] [place] [address] Hematocrit (Bld) [Volume 32.0 34.1-44.9 % Low 03-06 [facility]] System (00 000) Comment: Performed By: #### CBCD1 ### # [facility] [address] [place], [place] [address] Hemoglobin (Bld) [Mass/Vol] 10.1 11.2-15.7 g/dL Low [facility] (00 000) Comment: Performed By: #### CBCD1 ### # [facility] [address] [place], [place] [address] Immature Grans 1.00 % Normal 03-06-2019 [facility] (11101) Comment: Performed By: #### CBCD1 ### # [facility] [address] [place], [place] [address] Lymphocytes (Bld) [#/Vol] 0.21 1.18-3.74 thou/cmm Low 02-16 [facility] (00 000) Comment: Performed By: #### CBCD1 ### # [facility] [address] [place], [place] [address] Lymphocytes/100 WBC (Bld) 5.4 % Normal 02-16 [facility] (05145) Comment: Performed By: #### CBCD1 ### # [facility] [address] [place], [place] [address] MCH (RBC) [Entitic mass] 27.7 25.6-32.2 pg Normal 03-06 [facility] (00 000) Comment: Performed By: #### CBCD1 ### # [facility] [address] [place], [place] [address] MCHC (RBC) [Mass/Vol] 31.6 31.6-34.8 % Normal 03-06-20 19 [facility] (64317) Comment: Performed By: #### CBCD1 ### # [facility] [address] [place], [place] [address] MCV (RBC) [Entitic vol] 87.7 79.4-94.8 fl Normal 2018 [facility] (00 000) Comment: Performed By: #### CBCD1 ### # [facility] [address] [place], [place] [address] Monocytes/100 WBC (Bld) 7.2 % Normal 2018 [facility] (86131) Comment: Performed By: #### CBCD1 ### # [facility] [address] [place], [place] [address] Platelets (Bld) 46 182-369 thou/cmm Critically low [address] [place] [address] [#/Vol] Health Sys tem (01934) Comment: Result Comment: Repeated AND verified Performed By: #### CBCD1 ### # [facility] [address] [place], [place] [address] RBC (Bld) [#/Vol] 3.65 3.93-5.22 mil/cmm Low 03-06-2019 [facility] [place] ([address]30) Comment: Performed By: #### CBCD1 ### # [facility] [address] [place], [place] [address] RDW SD 44.6 36.4-46.3 fl Normal 03-06-2019 [facility] (84877) Comment: Performed By: #### CBCD1 ### # [facility] [address] [place], [place] [address] Seg Neutrophil 86.4 % Normal 03-06-2019 [facility] (50775) Comment: Performed By: #### CBCD1 ### # [facility] [address] [place], [place] [address] WBC (Bld) [#/Vol] 3.89 3.98-10.04 thou/cmm Low 03-06-2019 [facility] (93165) Comment: Performed By: #### CBCD1 ### # [facility] [address] [place], [place] [address] ecg complete on 06-22-20 ECG COMPLETE NAME : KENDRA FRANCO Normal 03-06 [facility] PID : [id number] [facility] : 1985 (0 0000) Gender : Female Race : ORD : [id number] Procedure Date : Mar 06 2019 17:12:20 Edit Date : Mar 07 2019 16:57:53 Diagnosis:SINUS TACHYCARDIA CANNOT RULE OUT ANTERIOR INFARCT , AGE UNDETERMINED ABNORMAL ECG NO PREVIOUS ECGS AVAILABLE Confirmed by MD MURILLO FERNANDO ([id number]) on 03/07/2019 4:57:4 7 PM Ventricular Rate : 119 BPM Atrial Rate : 119 BPM P-R Interval : 136 ms QRS Duration : 84 ms Q-T Interval : 316 ms QTC Calculation(Bezet) : 444 ms P [place] : 27 degrees R [place] : -11 degrees T [place] : 20 degrees Test Reason : Chest Pain Location : 6 : CVICU 323 Overread By : MD MURILLO FERNANDO Edited By : MD MURILLO FERNANDO Referred By : , Acquired by : ARNOLD ABDALLA cult and smr afb (tb) on 2019-03-06 [employer] Test performed at [facility] Normal 03-06-2019 [facility] (TB) No acid fast bacilli cultured System (96846) No AFB by Fluorochrome stain Comment: Performed By: #### CRP3 #### [place] [address] comprehensive panel on 2019-03-06 ALP [Catalytic activity/Vol] 59 45-117 U/L Normal 0 03-06-2019 [facility] (00 000) Comment: Performed By: #### P14 #### [facility] [address] [place] [address] Bilirubin [Mass/Vol] 0.4 0.2-1.0 mg/dL Normal 9 [facility] (15108) Comment: Performed By: #### P14 #### [facility] [address] [place], [place] [address] Creatinine [Mass/Vol] 1.07 0.51-0.95 mg/dL High 03-06-20 19 [facility] (00 000) Comment: Performed By: #### P14 #### [facility] [address] [place], [place] [address] Protein [Mass/Vol] 5.9 6.4-8.2 g/dL Low 03-06-2019 [facility] (40418) Comment: Performed By: #### P14 #### [place] [address] AST [Catalytic activity/Vol] 19 15-37 U/L Normal 0 03-06-2019 [facility] (00 000) Comment: Performed By: #### P14 #### [facility] [address] [place], [place] [address] ALT [Catalytic activity/Vol] 19 12-78 U/L Normal 0 03-06-2019 [facility] (00 000) Comment: Performed By: #### P14 #### [facility] [address] [place], [place] [address] Glucose [Mass/Vol] 97 70-99 mg/dL Normal 03-06-2019 [facility] (27266) Comment: Performed By: #### P14 #### [facility] [address] [place], [place] [address] Albumin [Mass/Vol] 2.1 3.4-5.0 g/dL Low 03-06-2019 [facility] (30839) Comment: Performed By: #### P14 #### [facility] [address] [place], [place] [address] Anion gap [Moles/Vol] 11 8-16 mmol/L Normal 03-06-20 [facility] (81020) Comment: Performed By: #### P14 #### [facility] [address] [place], [place] [address] CO2 [Moles/Vol] 25 21-32 mEq/L Normal 03-06-2019 [facility] (49216) Comment: Performed By: #### P14 #### [facility] [address] [place], [place] [address] Urea nitrogen [Mass/Vol] 20 7-18 mg/dL High 03-06 [facility] (66729) Comment: Performed By: #### P14 #### [facility] [address] [place], [place] [address] Calcium [Mass/Vol] 7.6 8.5-10.1 mg/dL Low 03-06-2019 [facility] (13015) Comment: Performed By: #### P14 #### [facility] [address] [place], [place] [address] Chloride [Moles/Vol] 105 98-107 mEq/L Normal 9 [facility] (61057) Comment: Performed By: #### P14 #### [facility] [address] [place], [place] [address] Potassium [Moles/Vol] 4.0 3.5-5.1 mEq/L Normal 03-06-20 19 [facility] (83829) Comment: Performed By: #### P14 #### [facility] [address] [place], [place] [address] Sodium [Moles/Vol] 137 136-145 mEq/L Normal 03-06-2019 [facility] (97054) Comment: Performed By: #### P14 #### 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 No Advance Directive: Current Advance Directive: None Travel Pt Attempted to Assist with AD Completion: Yes Action: Patient Unwilling Health Literacy: 1. How often do you need to have someone help you when you r ead instructions, pamphlets, or other written material from your doctor or pharmacy? Never - 1 2. How confident are you filling out medical forms by yourse lf? Quite a bit - 2 If Patient scores > 3 on either question, the following inte rventions were put into place: Patient did not score > 3 FUNCTIONAL AND COGNITIVE/BEHAVIORAL PRIOR TO ADMISSION: Baseline Mental Status: Person, Place , Time and Situation Functional Status: Independent Does Patient Currently Receive Any Community Services or [facility] e Care? None Equipment Prior to Admission: None Has the Patient Been in a Penitentiary Facility in the [place] st 30 days? No SOCIAL: Living Arrangement: Home Lives With: 2 children Financial Resources: employed b Primary Contact: Extended Emergency Contact Information Primary Emergency Contact: Gisell Desir Mobile Relation: Sister Supportive: Yes, Unable to assess at this time Other Important Patient Contacts: None Caregiver Assessment: Caregiver is ready, willing and able to meet the patient's n eeds as recommended by the inter-professional team? No Caregiver Nee ded Patient's transition needs and plan for meeting these needs: to return home Does the patient have an acute stroke diagnosis, or has the patient had a stroke during this admission? No Medication Adherence: I am convinced of the importance of my prescription medicati on: Agree mostly - 0 I worry that my prescription medication will do more harm th an good to me Disagree mostly - 0 I feel financially burdened by my [id number] expenses for my prescription medication: Disagree mostly -0 Patient is categorized as low risk < 2 Are you interested in bedside delivery of your medications? No Food Concerns: In the Last Month, Have You had Trouble Getting Food? No tro uble getting food During the Last Month, Have You Worried Whether Your Food Wo uld Run Out Before You Had Enough Money to Buy More? No Is the Patient Psychosocially Complex? No ASSESSMENT AND PLAN: Medical Needs: 2 or more chronic diseases Psychosocial Needs: None FREEDOM OF CHOICE EXPLAINED: N/A POTENTIAL TRANSITION PLANS Home Lives in [facility] with 2 children (ages 9 and 5). 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 Pt does not foresee any d/c needs. Pt worried about money as states she only has 2 more PTO d ays left. Will follow up with pt 03-07-19 as pt taken to procedure. SIGNATURE: DENISSE Escamilla PATIENT NAME: Kendra Franco DATE: March 06, 2019 TIME: 4:21 PM PAGER/CONTACT #: [phone] c4 on 2019-03-06 C4 8.4 10.0-40.0 mg/dL Low 03-06-2019 [facility] (67080) Comment: Performed By: #### C4 #### [facility] [address] [place], [place] [address] c3 on 2019-03-06 C3 52.0 90.0-180.0 mg/dL Low 03-06-2019 [facility] (57324) Comment: Performed By: #### C3 #### 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 The tract was dilated with sequential dilation. An 8 Nigerien pigtail catheter was placed for drainage. 1200 mL o f serous fluid was removed. Samples were sent for analysis. The peric ardial drain was sutured into place. Patient was transferred back to the CVICU in stable condition. Complications: None SIGNATURE: Will Knutson MD DATE: March 06, 2019 TIME: 3:12 PM bf cell count/diff on 2019-03-06 BF/Monos 2 % Normal 03-06-2019 [facility] (50765) Comment: Performed By: #### CRP3 #### [facility] [address] [place], [place] [address] BF/Others 4 % Normal 03-06-2019 [facility] (32826) Comment: Performed By: #### CRP3 #### [facility] [address] [place], [place] [address] BF/Segs 87 % Normal 03-06-2019 [facility] (36744) Comment: Performed By: #### CRP3 #### [facility] [address] [place], [place] [address] Lymphocytes/100 WBC (Bld) 7 % Normal 02-16 [facility] (66768) Comment: Performed By: #### CRP3 #### [facility] [address] [place], [place] [address] Appearance (U) Hazy Normal 03-06-2019 [facility] (43818) Comment: Performed By: #### CRP3 #### [facility] [address] [place], [place] [address] BF/Nucleated Cells 5450 0 /cmm Normal 03-06-2019 [facility] (07296) Comment: Performed By: #### CRP3 #### [facility] [address] [place], [place] [address] Body Fluid Color Yellow Normal 03-06-2019 [facility] (80134) Comment: Performed By: #### CRP3 #### [facility] [address] [place], [place] [address] RBC (Bld) [#/Vol] 1350 0 /cmm Normal 03-06-2019 [email or web address] [facility] [employer] (61701) Comment: Performed By: #### CRP3 #### [facility] [address] [place], [place] [address] amylase,body fluid on 2019-03-06 Amylase,Body Fluid 32 U/L Normal 03-06-2019 [facility] (30116) Comment: Result Comment: Pleural flui ds: Amylase measurement in pleur al fluid is considered a useful test for detecting amylase-rich effus ions, which may be caused by exudative conditions associated with p ancreatitis, esophageal rupture, malignancy, pneumonia, and liver cirrhos is. A ratio of pleural fluid amylase to a concurrent serum amylase >1 is defined as an amylase-rich pleural effusion. Peritoneal fluids and draina ge fluids: Pancreatic damage causes ext ravasation of amylase from exocrine cells into peritoneal space. In cases o f pancreatitis, fluid amylase should be at least several-fold times hig her in fluid of pancreatic origin compared to concurrent serum amylase juan ues. Pancreatic cyst fluid: Pancreatic cyst fluid amylas e may aid in characterizing tumors and should be interpreted along with other clinical and laboratory information. Performed By: #### CRP3 #### [facility] [address] [place], [place] [address] Specimen type Nom (Spec) Pericardial Normal [facility] (00 000) Comment: Performed By: #### CRP3 #### [facility] [address] [place], [place] [address] mrsa screen on 2018 MRSA DNA MARIZA+probe Ql Test performed at [facility] Normal 03-05-2019 [facility] (Unsp spec) No MRSA detected. [facility] (75904) Comment: Performed By: #### CRP3 #### [facility] [address] [place], [place] [address] hosp on 2019-03-05 HOSP Patient:Kendra Franco Normal 019 [place] MRN: General Height:5' 5(1.651 m) Medical Weight:273 lb 5.9 oz (124 kg) Center Outpatient Medications as of 03/06/19: (31424) DULoxetine (CYMBALTA) 30 mg capsule furosemide (LASIX) 20 mg tablet predniSONE (DELTASONE) 10 mg tablet apixaban (ELIQUIS) 5 mg tab(s) BIOTIN ORAL Admission/Clinic Administered Medications as of 03/06/19: colchicine 0.6 mg tab(s) DULoxetine 30 mg cap(s) (CYMBALTA) perflutren lipid microspheres 1.1 mg/mL 1.3 mL injection (DE FINITY) predniSONE 10 mg tab(s) (DELTASONE) potassium chloride 80-120 mEq oral liquid potassium chloride iv piggyback 20 mEq/100 mL magnesium sulfate in water 2 g in sterile water 50 ml sodium glycerophosphate 45 mmol in NaCl 0.9% 250 mL (GLYCOPH OS) calcium gluconate 4 g in NaCl 0.9% 250 mL naproxen 500 mg tab(s) (NAPROSYN) Problem List: Cardiomyopathy, peripartum, [O90.3] TRAMAINE (generalized anxiety disorder) [F41.1] Lichen simplex chronicus [L28.0] History of depression [Z86.59] Frequency of urination [R35.0] Morbid obesity (HCC) [E66.01] History of lupus (HCC) [M32.9] Thrombocytopenia affecting (HCC) [O99.119, D69.6] Pericardial effusion [I31.3] History of cardiomyopathy [Z86.79] History of pulmonary embolism [Z86.711] Pericardial tamponade [I31.4] Thrombocytopenia (HCC) [D69.6] Obesity, Class III, BMI >= 40 [E66.01] Allergies: Codeine Doxycycline Percocet [Oxycodone-Acetaminophen] Clindamycin Morphine Penicillins Date Verified: 03/06/19 Lab Values Lab Value Units Date High Low POTA* 4.0 mEq/L 03/06/2019 5.1 3.5 MEG* 32.0 % 03/06/2019 44.9 34.1 Progress Notes (): Leonard Blount MD 03/06/2019 12:35 PM Signed CONSULT: CARDIOLOGY SERVICE SERVICE DATE: 03/05/2019 SERVICE TIME: 6:30PM CONSULTING PHYSICIAN: BLANCHE Ledesma PCP: Nabeel Sanders DO ATTENDING: Elías Wahl REASON FOR CONSULT: Pericardial effusion Subjective CHIEF COMPLAINT: pericardial effusion hcap pe HISTORY OF PRESENT ILLNESS: Ms. Franco is a 33 year old female with a PMH of - post cardiomyopathy EF 55% February 2014, - reported SLE/RA on immunosuppression prednisone 10 m g ( follows up with Dr Jara in [place]), - post depression, - migraine who presents for c/o shortness of breath from [facility]. She had been admitted there for c/o cough around 3 weeks back and was donnie gnosed with a pulmonary embolus, started on apixaban. She had also been given antibiotics initially but none at home. She had been feeling a little better after that but has had an ongoing cough, initially non productive and now is productive of yellow sputum since 2 days, no hemoptysis. Had a negative US for DVT. Only on prednisone for SLE, recently taken off belimumab. She started developing short ness of breath yesterday which became progressively worse along with pleuritic c hest pain and she presented to [facility]. Has associated leg swelling since the last week, lig htheadedness since yesterday, orthopnea since 3 weeks. She has also had some runny nose, soreness in her throat. C/ o having fever 100-101 with some chills in the last few days to weeks. She denies any trauma, malig stanley, radiation therapy. Of note, she did have a CT scan on 02/14/19 which showed the pericardial eff usion. Unsure about the size. She was given breathing treatments in [place] an d per reports, a bedside echo was done which was concerning for pericardial effusion, po ssible tamponade. She has been taking apixaban regularly, last dose this morni ng at 8 AM. REVIEW OF SYSTEMS: General : Has had change in appetite. No weight loss HEENT : No epistaxis, headache. RS : As in HPI CVS : See HPI. GI : Has had some loose stools, not more than 3 a day. Denies abdominal pain, nausea, vomiting, constipation, hematochezia, melena. : Denies dysuria, frequency, urgency, hematuria, incontin ence. MSK : has had arthralgias for some time, worse in the last week after being taken off belimumab 3 weeks ago. Usually has hair loss, malar rash also with SLE flare. Skin : No Rash, no h/o cancer. Neuro : Denies numbness, weakness, paraesthesias. Hem : Denies lymph node swelling. PAST MEDICAL HISTORY Diagnosis Date - Abnormal glandular Papanicolaou smear of cervix Abn. Pap smear (cervix) - Cardiomyopathy 01/21/2010 post - Carpal tunnel syndrome - Dysthymic disorder Depression (non-psychotic) - Gestational diabetes mellitus, antepartum 03/16/2014 - Lupus (HCC) - Migraine, unspecified, with intractabl e migraine, so stated, without mention of status migrainosus Migraine - Obesity - depression - Psoriatic arthritis (HCC) - Rheumatoid arthritis (HCC) - Systemic lupus erythematosus (HCC) PAST SURGICAL HISTORY Procedure Laterality Date - ANESTH, SECTION 03/22/2014 - APPENDECTOMY - DELIVERY ONLY 01/14/2010 , low transverse - COLPOSCOPY (VAGINOSCOPY) Colposcopy - DANVT 11/2017 - LAP CHOLECYSTOENTEROSTOMY 06/2011 FAMILY HISTORY Problem Relation Age of Onset - Arthritis Mother rheumatoid - Thyroid Mother - Heart Mother - Lipids Father - Cancer Maternal Grandmother LUNG CANCER - Heart Maternal Grandmother - Thyroid Maternal Grandmother - Heart Paternal Grandmother - Thyroid Maternal Aunt - Thyroid Maternal Aunt Social History Tobacco Use - Smoking status: Never Smoker - Smokeless tobacco: Never Used Substance Use Topics - Alcohol use: Yes Comment: social alcohol use, not while - Drug use: No Cannot display prior to admission medica tions because the patient has not been admitted in this contact. Current Facility-Administered Medications Medication Dose Route Frequency - perflutren lipid microspheres 1.1 mg/mL 1.3 mL injec tion (DEFINITY) 1.3 mL INTRAVENOUS DIRECTED PRN ALLERGIES Allergen Reactions - Codeine GI Upset States sharp stomach pains - Doxycycline Hives - Percocet [Oxycodone* Hives, Anaphylaxis - Clindamycin Rash - Morphine Swelling uvula swelling - Penicillins Rash Objective PHYSICAL EXAM: 03/05/19 1845 03/05/19 1847 03/05/19 1853 03/05/19 1900 BP: (!) 153/127 136/99 Pulse: (!) 126 (!) 125 Resp: 23 29 Temp: 36.2 ?C (97.2 ?F) SpO2: 98% 98% Weight: 124 kg (273 lb 5.9 oz) 124 kg (273 lb 5.9 oz) Height: 165.1 cm (5' 5) General : Young white female well built and nourished sitting in bed in mild distress, tachypneic. HEENT : No thrush, no oral ulcers. No pallor or icterus. Neck : Unable to see JVD, no carotid bruits. No LAD. RS : Normal vesicular breaths sounds heard bilaterally . Inspiratory crackles heard in bilateral bases. Short inspirat ory effort. Accessory neck muscle use, RR in 30s, saturating 97% on 3L. CVS : S1, S2 heard. Tachycar dic. Regular. No m/r/g. No tenderness to palpation. Abd : soft, non tender, non distended. Extremities : Some pitting and non pitti ng edema in both legs. Pulses palpable radial, DP/PT bilaterally. Some swelling of her PIP joints in both hands, not much MCP joint involvement. No clear synovial thickening felt. Neuro : Alert and oriented to time, place and person. Body mass index is 45.49 kg/m?. No data recorded No data found. DATA: Diagnostic tests reviewed for today's visit: WBC - 5.2, Hb 10.8, MCV 85.8, Platelets 56. INR - 1.0 Na - 135, K 5.3, CO2 - 23, Cl 103, Cr 0.86, LA 1.2, T 44, ALT 22, Trop - < 0.015 Alb 2.2 Urine - Protein 500, urine leukocyte esterase 25, urine WBC 10-25 CXR - Questionable right basilar infiltrate/atelectasis. EKG : Sinus tachycardia. Low voltages in lead II, III, aVF, aVR, aVL. No significant ST-T changes. Past 72 Hour Labs: Last Lab Drawn: TSH 3.810 07/09/2014 Prior Cardiac Workup: Echo : 02/20/14 - EF 55%, mildly dilated RV. Trivial TR. Impression/Recommendations 33 year old white female with a PMH of SLE/RA on prednisone, post cardiomyopathy with recovery, recent PE on apixa ban presenting with worsening dyspnea and pleuritic chest pain found to have pericardial e ffusion. # Pericardial effusion - 2/2 recent PE v SLE/RA v viral woodrow carditis - STAT echo ordered to assess for tamponade. - Clinically has concerning signs with low pulse pressure, s ignificant tachycardia, tachypnea. No pulsus paradoxus - Hold apixaban for now. Wit h her being on anticoagulation, low platelet count, pericardiocentesis will be with elevated risk. - Possibility of an SLE flare is there with her having some features. Will resume home prednisone for now, 10mg. Check ESR, CRP. - Start naproxen 500m bid an d colchicine 0.6mg daily for possible pericarditis. # Pulmonary embolism, likely provoked. - On home apixaban. H old for now. - Patient reports taking OCP upto around a week before diagnosis of PE. Denies other risk factors. SLE would also put her at a higher risk. - Was supposed to have 4 mon ths AC per her. Will have to clarify this later on. # Cough - possible pneumonia . Received a dose of levofloxacin. Monitor for now. - Check procalcitonin althou gh may be affected by pericardial effusion, SLE/RA. # SLE, RA - As above. - She may be having a SLE fl are although hard to say. Await CRP, ESR. Also check C3, C4 for disease activity factors. Can consider checking [id number] and BILAG scores and discussion with rheumatology about possibly treat ing a flare. - Continue prednisone 10mg for now. # History of post cardiomyopathy # PPx - Hold SCD's until checked for DVT. Discussed with Dr Blount. Addendum : [address] Blount. There are concerning features on her echocardiogram with RA collapse in systole and some RV collapse in diastole as we ll concerning for early tamponade. STAT ECHO - 03/05/19 Left ventricular systolic function is normal. EF = 55 ? 5% (visual est.) - There is large circumferential pericardial effusion measur ing 4.9 cm. It is most pronounced?around the left ventricle. There appea rs to be some echogenic material within th e effusion.The inflow velocity variation across the atrial ventricular valves is not suggestive of tamponade, bu t there is significant ?swinging motion of the heart. There is some systolic indentation of the right atrium, and diastolic indent ation of the right ventricle. The inferior vena cava is plethoric, and does not collapse with inspiration. Data s uggest early tamponade. Given her particular case with recent anticoagulation ( ap ixaban), platelet count of 56 she is at a high risk for bleeding. Risk v benefit assessment at this time done and decisi on made to hold off on doing emergent pericardiocentesis. Will continue to mo nitor her for signs of hemodynamic instability at w hich point, benefits may outweigh risk of bleeding. Also discussed with Dr Santiago about her recent pulmonary emb olism and anticoagulation. Believe it would be best to hol d any anticoagulation at this time due to apixaban and low platelet count with the p ossibility of bleeding into the pericardium. Will perform an US DVT LE for any clots. If present and ascencion ot be anticoagulated, will need to consider an IVC filter. Obtain medical record for pulmonary embolism. Discussed with patient. I personally saw and evaluated the patient. Discussed with félix zazueta resident. I agree with resident's findings and plan as docum ented in the resident's note, unless noted otherwise. Critical Care Documentation: The patient has the following o rgan/system impairment(s): *Large pericardial effusion with changes of early tamponade. *ASystemic Lupus erythematosis, with possible flare. * Acute Thrombocytopenia * Recent pulmonary embolism This patient has a high probability of sudden, clinically si gnificant deterioration, which requires the highest level of phy sician preparedness to intervene urgently. I manage d/supervised life or organ supporting interventions that required frequent physi corby assessment. I devoted my full attention to the direct care of this patient for the amount of time indicated below. Time I spent with family or surroga te(s) is included only if the patient was incapable of providing the necessary information or participating in medical decision making. Time devoted to teaching is not included. ?? Time spent providing critical care services: 60 minutes excluding procedures. SIGNATURE: BLANCHE Ledesma PATIENT NAME: Kendra Franco DATE: March 05, 2019 TIME: 6:04 PM PAGER/CONTACT #: [phone] Previous Version BLANCHE Ledesma 03/05/2019 10:26 PM Attested Attestation signed by Hayder Howard at 9 1:23 AM [facility] [place], [facility] PHYSICIAN NOTE OF PERSONAL INVOLVEMENT IN CARE I have reviewed the consult note aakash son and documented by the resident and I personally participated in the otto components. I have discussed the case and management of the patient's care. The following comments rev ise or confirm relevant otto components of the note and have added additional documentation as needed. Please see my separate note. SIGNATURE: Hayder Howard MD [facility] PAGER:[phone] CRITICAL CARE CONSULT NOTE SERVICE DATE: 03/05/2019 SERVICE TIME: 8:44 PM REASON FOR CONSULT: Anticoagulation for PE in the setting of early cardiac tamponade. REQUESTING PHYSICIAN: Dr Leonard Blount. ? ADMITTING PROVIDER: Elías Wahl SERVICE DATE: 03/05/2019 SERVICE TIME: 8:44 PM Admission Date: 03/05/2019 AGE: [age] year old LOS: 0 days Subjective Ms. Franco is a 33 year old female with a PMH of - post cardiomyopathy (EF 55% 2013), - reported SLE/RA on immunosuppression prednisone 10mg , - post depression, - migraine who presents for c/o shortness of breath from [facility]. She had been admitted there for c/o cough around 3 weeks back and was donnie gnosed with a pulmonary embolus, started on apixaban. She had also been given antibiotics initially but none at home. She had been feeling a little better after that but has had an ongoing cough, initially non productive and now is productive of yellow sputum since 2 days, no hemoptysis. Had a negative US for DVT. Only on prednisone for SLE, recently taken off belimumab. She started developing short ness of breath yesterday which became progressively worse along with pleuritic c hest pain and she presented to [facility]. Has associated leg swelling since the last week, lig htheadedness since yesterday, orthopnea since 3 weeks. She has also had some runny nose, soreness in her throat. C/ o having fever 100-101 with some chills in the last few days to weeks. She denies any trauma, malig stanley, radiation therapy. Of note, she did have a CT scan on 02/14/19 which showed the pericardial eff usion. Unsure about the size. ? She was given breathing treatments in [place] an d per reports, a bedside echo was done which was concerning for pericardial effusion, po ssible tamponade. ? She has been taking apixaban regularly, last dose this evieni ng at 8 AM. REVIEW OF SYSTEMS: ? General : Has had change in appetite. No weight loss HEENT : No epistaxis, headache. RS : As in HPI CVS : See HPI. GI : Has had some loose stools, not more than 3 a day. Denies abdominal pain, nausea, vomiting, constipation, hematochezia, melena. : Denies dysuria, frequency, urgency, hematuria, incontin ence. MSK : She has some joint joann n which is ongoing since being taken off Belimumab. Her typical SLE flares include hair loss, severe joint pain. Skin : No Rash, no h/o cancer. Neuro : Denies numbness, weakness, paraesthesias. Hem : Denies lymph node swelling. Objective PROBLEMS: ACTIVE PROBLEM LIST Cardiomyopathy, Peripartum, Tramaine (Generalized Anxiety Disorder) Lichen Simplex Chronicus History of Depression Frequency of Urination Obesity in , Antepartum History of Lupus (Hcc) Thrombocytopenia Affecting (Hcc) Pericardial Effusion PAST MEDICAL HISTORY Diagnosis Date - Abnormal glandular Papanicolaou smear of cervix Abn. Pap smear (cervix) - Cardiomyopathy 01/21/2010 post - Carpal tunnel syndrome - Dysthymic disorder Depression (non-psychotic) - Gestational diabetes mellitus, antepartum 03/16/2014 - Lupus (HCC) - Migraine, unspecified, with intractabl e migraine, so stated, without mention of status migrainosus Migraine - Obesity - depression - Psoriatic arthritis (HCC) - Rheumatoid arthritis (HCC) - Systemic lupus erythematosus (HCC) PAST SURGICAL HISTORY Procedure Laterality Date - ANESTH, SECTION 03/22/2014 - APPENDECTOMY - DELIVERY ONLY 01/14/2010 , low transverse - COLPOSCOPY (VAGINOSCOPY) Colposcopy - [facility] 11/2017 - LAP CHOLECYSTOENTEROSTOMY 06/2011 Social History Socioeconomic History Marital status: Spouse name: Not on file Number of children: 2 Years of education: 13 Highest education level: Not on file Social Needs Financial resource strain: Not on file Food insecurity - worry: Not on file Food insecurity - inability: Not on file Transportation needs - medical: Not on file Transportation needs - non-medical: Not on file Occupational 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 BP 136/99 Pulse 125 Temp 97.2 Resp 29 Ht 5' 5 (1.65m) Wt 273 lb 5.9 oz (124.0kg) SpO2 98% BMI 45.49 kg/(m2). O2 Therapy: Nasal Cannula, Liters: 2 Temp (24hrs), Av.2 ?C (97.2 ?F), Min:36.2 ?C (97.2 ?F), Max:36.2 ?C (97.2 ?F) NET FLUID BALANCE No intake or output data in the 24 hours ending 03/05/192043 MEDICATIONS Current Facility-Administered Medications Medication Dose Route Frequency - perflutren lipid microspheres 1.1 mg/mL 1.3 mL injec tion (DEFINITY) 1.3 mL INTRAVENOUS DIRECTED PRN - predniSONE 10 mg tab(s) (DELTASONE) 10 mg ORAL DAILY - DULoxetine 60 mg cap(s) (CYMBALTA) 60 mg ORAL DAILY - potassium chloride 80-120 mEq oral liquid 80-120 mEq ORAL/FEEDING TUBE PRN - potassium chloride iv piggyback 20 mEq/100 mL 20 mEq INTRA VENOUS PRN - magnesium sulfate in water 2 g in sterile water 50 ml 2 g INTRAVENOUS PRN - sodium glycerophosphate 45 mmol in NaCl 0.9% 250 mL (GLYCO PHOS) 45 mmol INTRAVENOUS PRN - calcium gluconate 4 g in NaCl 0.9% 250 mL 4 g INTRAVENOUS PRN - naproxen 500 mg tab(s) (NAPROSYN) 500 mg ORAL BID - colchicine 0.6 mg tab(s) 0.6 mg ORAL DAILY Lines, Drains, and Airways Line Peripheral 03/05/19 1851 Assessment Short Right Forear m 22 Gauge less than 1 day PHYSICAL EXAM PERFORMED: 03/05/19 1845 03/05/19 1847 03/05/19 1853 03/05/19 1900 BP: (!) 153/127 136/99 Pulse: (!) 126 (!) 125 Resp: 23 29 Temp: 36.2 ?C (97.2 ?F) SpO2: 98% 98% Weight: 124 kg (273 lb 5.9 oz) 124 kg (273 lb 5.9 oz) Height: 165.1 cm (5' 5) General : Young white female well built and nourished sitting in bed in mild distress, tachypneic. HEENT : No thrush, no oral ulcers. No pallor or icterus. Neck : Unable to see JVD, no carotid bruits. No LAD. RS : Normal vesicular breaths sounds heard bilaterally . Inspiratory crackles heard in bilateral bases. Short inspirat ory effort. Accessory neck muscle use, RR in 30s, saturating 97% on 3L. CVS : S1, S2 heard. Tachycar dic. Regular. No m/r/g. No tenderness to palpation. Abd : soft, non tender, non distended. Extremities : Some pitting and non pitti ng edema in both legs. Pulses palpable radial, DP/PT bilaterally. Neuro : Alert and oriented to time, place and person. Respiratory/Nursing Documentation: O2 Therapy: Nasal Cannula (03/05/19 1900) HEMODYNAMIC DATA: Reviewed DATA: WBC - 5.2, Hb 10.8, MCV 85.8, Platelets 56. INR - 1.0 Na - 135, K 5.3, CO2 - 23, Cl 103, Cr 0.86, LA 1.2, T 44, ALT 22, Trop - < 0.015 Alb 2.2 Urine - Protein 500, urine leukocyte esterase 25, urine WBC 10-25 CXR - Questionable right basilar infiltrate/atelectasis. ? EKG : Sinus tachycardia. Low voltages in lead II, III, aVF, aVR, aVL. No significant ST-T changes. Echo : 02/20/14 - EF 55%, mildly dilated RV. Trivial TR. STAT ECHO : 03/05/19 Left ventricular systolic function is normal. EF = 55 ? 5% ( visual est.) - There is large circumferential pericardial effusion measur ing 4.9 cm. It is most pronounced?around the left ventricle. There appea rs to be some echogenic material within th e effusion.The inflow velocity variation across the atrial ventricular valves is not suggestive of tamponade, bu t there is significant ?swinging motion of the heart. There is some systolic indentation of the right atrium, and diastolic indent ation of the right ventricle. The inferior vena cava is plethoric, and does not collapse with inspiration. Data s uggest early tamponade. LABS: ABG: Invalid input(s): [id number] Assessment/Plan IMPRESSION: 33 year old white female with a PMH of SLE/RA on prednisone, post cardiomyopathy with recovery, recent PE on apixa ban presenting with worsening dyspnea and pleuritic chest pain found to have pericardial e ffusion. # Pericardial effusion - 2/2 recent PE v SLE/RA v viral pericarditis, possible hemorrhagic effusion with early tamponade. - Patient is at high risk for bleeding g iven her low platelet count and recent apixaban use. - Recommend holding off anticoagulation for now given risk o f worsening effusion, hemorrhage. - Management of the effusion per CVICU for now. - Monitor for hemodynamic compromise. - Check STAT US LE for DVT. May need IVC filter in the short term if cannot be anticoagulated. # Pulmonary embolism, possibly provoked by OCP u se - She is at high risk with her diagnosis of SLE as well. - As above, hold off on anticoagulation in this setting. - Will need atleast 3 months of anticoagulation, consider neal marrero in the outpatient setting. SIGNATURE: BLANCHE Ledesma PATIENT NAME: Kendra Franco DATE: March 05, 2019 TIME: 8:44 PM Pager [phone] Hayder Howard MD 03/06/2019 1:52 AM Signed Asked to see this patient for management of recently diagnosed acute PE in the setting of cardiac tamponade. D/w Dr Hartman. History and physical of the pt done independent ly by me. History: Ms Franco is a 33 year old white woman with PMH of morbid obes ity, lupus on chronic prednisone (diagnose d 2 years ago but was previously was diagnosed with RA), recent diagnosis of acu te PE ( 3 weeks ago at [place]) on eliquis, recently diagnosed pericardial effusion, and history of post-pa rtum V BELT BUILDER with complete recovery admitted for SOB and pleuritic chest pain. She brandon d started to feel better after her PE Rx but then started having S OB which was worse along with cough and fevers in the last 1 week. Last dose of eliquis 1 week ago. Full ROS with the pt done - some leg swelling; admits to snoring and EDS; denies any FH of DVT/ PE or PH. 10 systems otherwise negative. Pt f ound to have pericardial effusion at [place] and sent here. PMH: As above PSH: appy and FH: No FH of DVT/ PE SH: No IVDA or smoking or alchol All: PCN/ clinda, doxy, codeine Meds: Reviewed On exam: Vitals noted - tachycardic and with tachypnea; n o pulsus paradoxus clinically Lying in bed; NAD but anxious Morbidly obese; slight use of accessory muscles of breathing A, O times 3, no FND Tachy but regular, no M/R/G; hard to appreciate any JVD elev ation Bibasilar crackles noted posteriorly Soft, obese, NT Mostly non-pitting pedal edema b/l; more so on the left side Rest normal Data: Na 136, K 4.4, Cr 0.8 WCC 5.2, Hb 10.8, Plt 56 ESR 76, CRP 9.1 INR 1 LA 1.2 CXR - shows CM, left basilar atelectasis ECHO: - Left ventricular systolic function is normal. EF = 55 ? 5% (visual est.) - There is large circumferential pericardial eff usion measuring 4.9 cm. It is most pronounced?around the left ventricle. There appears to be some echogenic material within the effusion.The inflow velocity varia tion across the atrial ventricular valves is not suggestive of tamponade, but the re is significant swinging motion of the heart. There is some syst olic indentation of the right atrium, and diastolic indent ation of the right ventricle. The inferior vena cava is plethoric, and does not collapse with inspiration. Data s uggest early tamponade. ECHO 02/2014: Mildly dilated RV; normal LV Fx IMPRESSION: Ms Franco is a 33 year old white woman with PMH of morbid obes ity, lupus on chronic prednisone (diagnose d 2 years ago but was previously was diagnosed with RA), recent diagnosis of acu te PE ( 3 weeks ago at [place]) on eliquis, recently diagnosed pericardial effusion, and history of post-pa rtum V BELT BUILDER with complete recovery admitted for SOB and pleuritic chest pain. 1. Pericardial effusion with early ECHO findings of tamponade - viral infection vs related to lupus vs PE related (less likely) vs bleeding from thrombocytopenia/ eliquis vs cannot exclude PH concerns 2. Possible bronchitis vs PNA - CAP 3. Recent diagnosis of acute PE - extent not known and likely provoked (OCP/ obesity/ lupus are risk factors) 4. Morbid obesity 5. Likely MARIE 6. SLE with possible flare 7. Chronic T-penia thought to be related to SLE PLAN: - hold eliquis for now - no acute indication for IV heparin and will hold for likely pericardiocentesis - pericardiocentesis per cardio - if AC is contraindicated f rom a cardiac standpoint, we may have to consider an IVC filter irrespective of whether she has DVT or not - check PCT and consider Abx - will need OP PSG - will follow with you Code status: full PROGNOSIS: Fair Discussed with Luis Angel Hartman and Maria R. This patient has a high probability of sudden, clinically si gnificant deterioration, which requires the highest level of phy sician preparedness to intervene urgently. I manage d/supervised life or organ supporting interventions that required frequent physi corby assessment. I devoted my full attention to the direct care of this patient for the amount of time indicated below. Time I spent with family or surroga te(s) is included only if the patient was incapable of providing the necessary information or participating in medical decision making. Time devoted to teaching and to any proc edures I billed separately is not included. Critical Care Documentation: The patient has the following o rgan/system impairment(s): Complex life-threatening medical problem(s) and tamponade/ r ecent acute PE Time spent providing critical care services: 35 minutes. SIGNATURE: Hayder Howard MD [facility] PAGER:[phone] ? Leonard Blount MD 03/06/2019 12:44 PM Signed [facility] PROGRESS NOTE SERVICE DATE: 03/06/2019 SERVICE TIME: 7:29 AM Admission Date: 03/05/2019 AGE: [age] year old LOS: 1 days ACTIVE PROBLEM LIST Cardiomyopathy, Peripartum, Tramaine (Generalized Anxiety Disorder) Lichen Simplex Chronicus History of Depression Frequency of Urination Morbid Obesity (Hcc) History of lupus (HCC) Thrombocytopenia Affecting (Hcc) Pericardial Effusion History of Cardiomyopathy History of Pulmonary Embolism Pericardial Tamponade Thrombocytopenia (Hcc) Subjective 33 year old white female with a PMH of SLE/RA on prednisone, post cardiomyopathy with recovery, recent PE on apixa ban presenting with worsening dyspnea and pleuritic chest pain found to have pericardial effusion and signs of eaarly tamponade on Echo . OVERNIGHT EVENTS: Patient still complains of S ob and pleuritic hcest pain on taking deep breaths . She has been having fevers / chills and cough with sputum production . She works [employer] - exposure to sick contacts. She al so reports having some joint pains since 1 week . She has also been having leg swel ling . Objective PHYSICAL EXAM VITAL SIGNS (last 24hrs min/max): Temp Av.2 ?C (97.2 ?F) Min: 36.2 ?C (97.2 ?F) Max: 36.2 ?C (97.2 ?F) Pulse Av.1 Min: 102 Max: 126 Cuff BP Min: 126/89 Max: 153/127 Pain Level: 0 24 hour Intake AND Output: Intake/Output Summary (Last 24 hours) at 03/06/2019 0729 Last data filed at 03/05/2019 2300 Gross per 24 hour Intake 120 ml Output 300 ml Net -180 ml General : Young white female well built and nourished sitting in bed in mild distress, tachypneic. HEENT : No thrush, no oral ulcers. No pallor or icterus. Neck : Unable to see JVD, no carotid bruits. No LAD. RS : Normal vesicular breaths sounds heard bilaterally . Inspiratory crackles heard in bilateral bases. Short inspirat ory effort. Accessory neck muscle use, RR in 30s, saturating 97% on 3L. CVS : S1, S2 heard. Tachycar dic. Regular. No m/r/g. No tenderness to palpation. Abd : soft, non tender, non distended. Extremities : Some pitting and non pitti ng edema in both legs. Pulses palpable radial, DP/PT bilaterally. Some swelling of her PIP joints in both hands, not much MCP joint involvement. No clear synovial thickening felt. Neuro : Alert and oriented to time, place and person. Lines, Drains, and Airways Line Peripheral 03/05/19 2200 Short Left Forearm 20 Gauge less th an 1 day VENTILATOR INFORMATION: Settings: Patient Data: Weaning Data: INPATIENT MEDICATIONS : Current Facility-Administered Medications Medication Dose Route Frequency - perflutren lipid microspheres 1.1 mg/mL 1.3 mL injec tion (DEFINITY) 1.3 mL INTRAVENOUS DIRECTED PRN - predniSONE 10 mg tab(s) (DELTASONE) 10 mg ORAL DAILY - DULoxetine 60 mg cap(s) (CYMBALTA) 60 mg ORAL DAILY - potassium chloride 80-120 mEq oral liquid 80-120 mEq ORAL/FEEDING TUBE PRN - potassium chloride iv piggyback 20 mEq/100 mL 20 mEq INTRA VENOUS PRN - magnesium sulfate in water 2 g in sterile water 50 ml 2 g INTRAVENOUS PRN - sodium glycerophosphate 45 mmol in NaCl 0.9% 250 mL (GLYCO PHOS) 45 mmol INTRAVENOUS PRN - calcium gluconate 4 g in NaCl 0.9% 250 mL 4 g INTRAVENOUS PRN - naproxen 500 mg tab(s) (NAPROSYN) 500 mg ORAL BID - colchicine 0.6 mg tab(s) 0.6 mg ORAL DAILY NUTRITION: Data: BLOOD GAS: No results for input(s): VPH , VPC2, VPO2C, RESPHCO3, BASEX, O5CTUPNN, PH, PCO2, RESPHCO3, BASEX, R7OXGFMS in the last 168 hours. Invalid input(s): PO2C CBC:No results for input(s): WBC, HB, HCT, PLT, MCV, RDWCV , NEUTP, ABSNEUT, LYMPHP, MONOP, EODINP in the last 168 hours. COAG: No results for input(s): APTT, INR in the last 168 barbara rs. BMP: Recent Labs 03/06/1959903/05/192039 GLUC 97 95 NA 137 136 K 4.0 4.4 CHLOR 105 106 CO2 25 25 ANION 11 9 BUN 20* 16 CREAT 1.07* 0.80 CHEM: Recent Labs 03/06/1959903/05/192039 ALB 2.1* 2.1* TPROT 5.9* 6.2* CA 7.6* 7.7* HEPATIC: Recent Labs 03/06/1959903/05/192039 ALKPHOS 59 64 ALT 19 19 AST 19 18 TBILI 0.4 0.3 URINALYSIS:No results for input(s): PH, SPGR, UG NAKIA, UBILI, UKET, UHB, UPROT, UROBIL, UWBC, SSA in the last 168 hours. Invalid input(s): NITR CARDIAC: No results for input(s): CKTEST , CKMB, CKMBP, TROPT, PBNP in the last 168 hours. EKG RESULTS: Sinus tachycardia , low voltage QRS ECHOCARDIOGRAMS: Left ventricular systolic function is normal. EF = 55 ? 5% ( visual est.) - There is large circumferential pericardial effusion measur ing 4.9 cm. It is most pronounced?around the left ventricle. There appea rs to be some echogenic material within th e effusion.The inflow velocity variation across the atrial ventricular valves is not suggestive of tamponade, bu t there is significant ?swinging motion of the heart. There is some systolic indentation of the right atrium, and diastolic indent ation of the right ventricle. The inferior vena cava is plethoric, and does not collapse with inspiration. Data s uggest early tamponade. ? Active Hospital Problems Diagnosis - Pericardial tamponade - History of cardiomyopathy - History of pulmonary embolism 3 weeks ago - Thrombocytopenia (HCC) - Pericardial effusion - History of lupus (HCC) 10/21/2017 Patient states she was diagnosed with Lupus about 2 years ago. 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 She will call Dr Jara and let her know she is .TKRN - Morbid obesity (HCC) ASSESSMENT/PLAN : # Pericardial effusion - 2/2 recent PE v SLE/RA v viral woodrow carditis - STAT echo concerning for signs of early tamponade - Clinically has concerning signs with low pulse pressure, s ignificant tachycardia, tachypnea. Kussmaul's sign negative. No distend ed neck veins. Hemodynamically stable. - Hold apixaban for now. Wit h her being on anticoagulation, low platelet count, pericardiocentesis will be with elevated risk- Pulmonology a lso consulted - Possibility of an SLE flare is there with her having some features. Will resume home prednisone for now, 10mg. CRP elevated . C3 , C4 pending . - Start naproxen 500m bid an d colchicine 0.6mg daily for possible pericarditis. - Likely pericardial fluid drainage today . ? # Pulmonary embolism, likely provoked. - On home apixaban. H old for now. - Patient reports taking OCP upto around a week before diagnosis of PE. Denies other risk factors. SLE would also put her at a higher risk. - Was supposed to have 4 mon ths AC per her. Will have to clarify this later on. ? # Cough - possible pneumonia . Received a dose of levofloxacin. Monitor for now. - Check procalcitonin althou gh may be affected by pericardial effusion, SLE/RA. ? # SLE, RA - As above. - She may be having a SLE flare although hard to say. CRP is elevated . Also check C3, C4 for disease activity factor s. Can consider checking SLEDAI-2K and BILAG scores and discussion with rheumat ology about possibly treating a flare. - Continue prednisone 10mg for now. ? # History of post cardiomyopathy Critical Care Documentation: The patient has the following o rgan/system impairment(s): *Large pericardial effusion with early tamponade. * Systemic Lupus erythematosis, with possible flare * Recent acute PE * Acute thrombocytopenia This patient has a high probability of sudden, clinically si gnificant deterioration, which requires the highest level of phy sician preparedness to intervene urgently. I manage d/supervised life or organ supporting interventions that required frequent physi corby assessment. I devoted my full attention to the direct care of this patient for the amount of time indicated below. Time I spent with family or surroga te(s) is included only if the patient was incapable of providing the necessary information or participating in medical decision making. Time devoted to teaching is not included. ?? Time spent providing critical care services: 60 minutes excluding procedures. I discussed with Dr Knutson in detail. Her platelets are s till on the lower side. She has been tachycard ic, but has not had any hemodynamic instability. He will consider doing her woodrow cardioscentesis this afternoon. If not, she will be on for tomorrow morning. Ayaz Silverman PGY1 Internal Medicine 2207 Previous Version Betty Serna, RD, LD, RD 03/06/2019 10:35 AM Incomplete NUTRITION THERAPY INITIAL ASSESSMENT SERVICE DATE: 03/06/2019 SERVICE TIME: RECOMMENDED MALNUTRITION DIAGNOSIS: { :507722} {Etiologies:683519} NUTRITION CARE PLAN: {PES Statement:3318712::Problem, Etiology and Signs/Symptom s:} Intervention: Coordination of Care: Nursing Monitor and Evaluation: Goal: Meet >75% of estimated needs Monitor fluid/electrolyte balance Monitor labs, I/Os, vital signs, weight Discharge Nutrition Recommendations: { :542970} Chart reviewed for weight loss and poor po prior to admissio n Per HPI: 33 yo female presblack campos with shortness of breath from [facility]. Noted pericardial effusion 2/ recnet PE vs SLE/RA vs viral pericarditis, possible hemorrhagic effusion with early tamponade. ACTIVE PROBLEM LIST Cardiomyopathy, Peripartum, Tramaine (Generalized Anxiety Disorder) Lichen Simplex Chronicus History of Depression Frequency of Urination Morbid Obesity (Hcc) History of lupus (HCC) Thrombocytopenia Affecting (Hcc) Pericardial Effusion History of Cardiomyopathy History of Pulmonary Embolism Pericardial Tamponade Thrombocytopenia (Hcc) Obesity, Class III, BMI >= 40 PAST MEDICAL HISTORY Diagnosis Date - Abnormal glandular Papanicolaou smear of cervix Abn. Pap smear (cervix) - Cardiomyopathy 01/21/2010 post - Carpal tunnel syndrome - Dysthymic disorder Depression (non-psychotic) - Gestational diabetes mellitus, antepartum 03/16/2014 - Lupus (HCC) - Migraine, unspecified, with intractabl e migraine, so stated, without mention of status migrainosus Migraine - Obesity - depression - Psoriatic arthritis (HCC) - Rheumatoid arthritis (HCC) - Systemic lupus erythematosus (HCC) PAST SURGICAL HISTORY Procedure Laterality Date - ANESTH, SECTION 03/22/2014 - APPENDECTOMY - DELIVERY ONLY 01/14/2010 , low transverse - COLPOSCOPY (VAGINOSCOPY) Colposcopy - [facility] 11/2017 - LAP CHOLECYSTOENTEROSTOMY 06/2011 Social History Socioeconomic History Marital status: Spouse name: Not on file Number of children: 2 Years of education: 13 Highest education level: Not on file Social Needs Financial resource strain: Not on file Food insecurity - worry: Not on file Food insecurity - inability: Not on file Transportation needs - medical: Not on file Transportation needs - non-medical: Not on file Occupational 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: [employer] Tobacco Use Smoking status: Never Smoker Smokeless tobacco: Never Used Substance and Sexual Activity Alcohol use: Yes Comment: social alcohol use, not while Drug use: No Sexual activity: Yes Partners: Male Comment: vasectomy Other Topics Concerns: Not on file Social History Narrative Not on file Orders Placed This Encounter DIET NPO Standing Status: Standing Number of Occurrences: 1 Lines and Drains: Peripheral 03/05/19 2200 Short Left Forearm 20 Gauge (Active ) {Nutritional Intake Prior to Admission :0405577: :Nutritional Intake Prior to Admission:} GI symptoms: { :25390} Nutrition Abdominal Exam: abdomen is non distended and bowel sounds are normal, per clinical documentation ANTHROPOMETRICS Height: 165.1 cm (5' 5) Admission Weight: 124 kg (273 lb 5.9 oz) Current Weight: 124 kg (273 lb 5.9 oz) Body mass index is 45.49 kg/m?. class 3 obesity Weight has {IP TPN WEIGHT STATUS:372934} Last Wt 03/05/19 : 124 kg (273 lb 5.9 oz) 01/25/19 : 129.3 kg (285 lb) - 1 month 01/06/19 : 128.8 kg (284 lb) 11/30/18 : 129.5 kg (285 lb 6.4 oz) 11/14/18 : 129.5 kg (285 lb 6.4 oz) 05/09/18 : 128.8 kg (284 lb) 04/18/18 : 132 kg (291 lb) 03/23/18 : 133.8 kg (295 lb) 02/17/18 : 135.4 kg (298 lb 9.6 oz) 12/13/17 : (!) 142.9 kg (315 lb) 12/07/17 : (!) 144.3 kg (318 lb 3.2 oz) 11/01/17 : (!) 153.8 kg (339 lb) 06/12/16 : (!) 152.4 kg (336 lb) 07/10/14 : (!) 137 kg (302 lb) 05/10/14 : 133.8 kg (295 lb) 05/03/14 : 133.2 kg (293 lb 9.6 oz) 04/11/14 : 133.7 kg (294 lb 12.8 oz) 03/22/14 : (!) 155.1 kg (342 lb) 03/20/14 : (!) 155.4 kg (342 lb 9.6 oz) 03/15/14 : (!) 154.2 kg (340 lb) Duson Body Weight: 56.8kg Resting Metabolic Rate: 1937 Estimated kilocalorie needs: 0533-3558 kilocalories determined by 25-30 kcal/kg Estimated protein needs: 68-85 grams determined by 1.2 -1.5 g/kg Duson weight Estimated fluid needs: 5515-7431 milliliters based on 1 mL p er kcal NUTRITION FOCUSED PHYSICAL EXAM: { :145574} Temperature Max in 24 hours: Temp (24hrs), Av 6.3 ?C (97.3 ?F), Min:36.2 ?C (97.2 ?F), Max:36.3 ?C (97.3 ?F) BP 124/105 Pulse 109 Temp 36.3 ?C (97.3 ?F) Resp (!) 35 Ht 165.1 cm (5' 5) Wt 124 kg (273 lb 5.9 oz) SpO2 100% BMI 45.49 kg/m? Recent Labs 03/06/19 0600 03/05/19 2040 GLUC 97 95 BUN 20* 16 CREAT 1.07* 0.80 NA 137 136 K 4.0 4.4 CHLOR 105 106 CO2 25 25 ALB 2.1* 2.1* CRP -- 9.11* HB 10.1* -- HCT 32.0* -- WBC 3.89* -- Potential Signs of Inflammation: { :17132} ALLERGIES Allergen Reactions - Codeine GI Upset States sharp stomach pains - Doxycycline Hives - Percocet [Oxycodone* Hives, Anaphylaxis - Clindamycin Rash - Morphine Swelling uvula swelling - Penicillins Rash Current Facility-Administered Medications Medication Dose Route Frequency - perflutren lipid microspheres 1.1 mg/mL 1.3 mL injec tion (DEFINITY) 1.3 mL INTRAVENOUS DIRECTED PRN - predniSONE 10 mg tab(s) (DELTASONE) 10 mg ORAL DAILY - DULoxetine 60 mg cap(s) (CYMBALTA) 60 mg ORAL DAILY - potassium chloride 80-120 mEq oral liquid 80-120 mEq ORAL/FEEDING TUBE PRN - potassium chloride iv piggyback 20 mEq/100 mL 20 mEq INTRA VENOUS PRN - magnesium sulfate in water 2 g in sterile water 50 ml 2 g INTRAVENOUS PRN - sodium glycerophosphate 45 mmol in NaCl 0.9% 250 mL (GLYCO PHOS) 45 mmol INTRAVENOUS PRN - calcium gluconate 4 g in NaCl 0.9% 250 mL 4 g INTRAVENOUS PRN - naproxen 500 mg tab(s) (NAPROSYN) 500 mg ORAL BID Date 03/05/19 07 - 03/06/19 0603/06/19 07 - 03/07/19 0659 Shift 6663-5970 8679-5374 23 00-0659 24 Hour Total 7310-0880 7739-0422 3464-7873 24 Hour Total INTAKE PO 120 120 PO 120 120 Shift Total 120 120 OUTPUT Urine 300 300 Void (ml) 300 300 Shift Total 300 300 Weight (kg) 124 124 124 124 124 124 124 Vitamin and Mineral Labs in the past year:No results f or input(s): CHROMIUM, COPPER, MANGANESE, SELENIUM, VITAMINA, VITB1, VITB2, VITB6 , B12, METHYLMAL, VITD25, VITAMINE, VITAK, ZINC, TIBC, FE, KHALIF in the last 878 4 hours. MNT Billing Type: Initial Assess/15 min 3 units SIGNATURE: Betty Serna RD, LD PATIENT NAME: Kendra Franco DATE: March 06, 2019 TIME: 10:29 AM PAGER: [phone] CAYLA VIERA PHARMACIST 03/06/2019 12:13 PM Addendum MEDICATION HISTORY AND MEDICATION RECONCILIATION Patient Name:Leanna Franco : 1985 Source of history:Patient: Reliability of source: Appears reliable, clearly identified: Medication name, Medication dose and Medication frequency and Pharmacy records: [facility] Epic fill history Medication Nonadherence Identified: No barriers noted The above information represents the best possible medicatio n history: Yes Reconciliation completed? Yes All FINGERNAIL FORMER medications addressed by LIP--> duloxetine and prednisone already started, duloxetine dose must be updated; furosemide ordered PRN at home, hold here. Additional comments: Patient was recently started on PRN furosemide 20 mg; she has needed to take it twice since it was first prescribed on (of note; it was prescribed once daily according to the scrip t; but patient states she was told to take it PRN LE swelling). Verified that she takes duloxetine 30 mg one cap samra BID, not 2 capsules once daily as the script states. Added: Furosemide 20 mg (most recently filled dose) Prednisone 10 mg (most recently filled dose) Duloxetine 30 mg (most recently filled dose) Removed: Furosemide without a dose Prednisone 5 mg tabs (wrong dosage form) Duloxetine 60 mg (wrong dosage form) Allergies: ALLERGIES Allergen Reactions - Codeine GI Upset States sharp stomach pains - Doxycycline Hives - Percocet [Oxycodone* Hives, Anaphylaxis - Clindamycin Rash - Morphine Swelling uvula swelling - Penicillins Rash Preferred Pharmacy: [facility] pharmacy ([phone]) Current FINGERNAIL FORMER Medications: Prior to Admission medications as of 03/06/19 0150 Medication Sig Last Dose Taking DULoxetine (CYMBALTA) 30 mg capsule Take 30 mg by mouth twic e daily. Yes furosemide (LASIX) 20 mg tab let Take 20 mg by mouth as needed (fluid overload). Yes predniSONE (DELTASONE) 10 mg tablet Take 10 mg by mout h once daily as needed (for RA symptoms). Yes apixaban (ELIQUIS) 5 mg tab(s) Take 5 mg by mouth twice susan y. Yes BIOTIN ORAL Take 1 tablet by mouth once daily. Yes Duplicate Wrong dose Wrong dose CAYLA VIERA, PHARMACIST March 06, 2019 12:02 PM Previous Version Valerie Cantrell MD 03/06/2019 1:14 PM Signed CRITICAL CARE PROGRESS NOTE SERVICE DATE: March 06, 2019 SERVICE TIME: 12:53 PM Admission Date: 03/05/2019 AGE: [age] year old LOS: 1 days REASON FOR ICU ADMISSION: Large pericardial effusion Subjective CC: Can I eat? I'm very hungry. OVERNIGHT EVENTS: No overnight events Objective PAST MEDICAL HISTORY Diagnosis Date - Abnormal glandular Papanicolaou smear of cervix Abn. Pap smear (cervix) - Cardiomyopathy 01/21/2010 post - Carpal tunnel syndrome - Dysthymic disorder Depression (non-psychotic) - Gestational diabetes mellitus, antepartum 03/16/2014 - Lupus (HCC) - Migraine, unspecified, with intractabl e migraine, so stated, without mention of status migrainosus Migraine - Obesity - depression - Psoriatic arthritis (HCC) - Rheumatoid arthritis (HCC) - Systemic lupus erythematosus (HCC) PAST SURGICAL HISTORY Procedure Laterality Date - ANESTH, SECTION 03/22/2014 - APPENDECTOMY - DELIVERY ONLY 01/14/2010 , low transverse - COLPOSCOPY (VAGINOSCOPY) Colposcopy - [facility] 11/2017 - LAP CHOLECYSTOENTEROSTOMY 06/2011 Social History Socioeconomic History Marital status: Spouse name: Not on file Number of children: 2 Years of education: 13 Highest education level: Not on file Social Needs Financial resource strain: Not on file Food insecurity - worry: Not on file Food insecurity - inability: Not on file Transportation needs - medical: Not on file Transportation needs - non-medical: Not on file Occupational 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 Temp (24hrs), Av.3 ?C (97.4 ?F), Min:36.2 ?C (97.2 ?F), Max:36.5 ?C (97.7 ?F) Vital signs reviewed. 24 hour Intake AND Output: Intake/Output Summary (Last 24 hours) at 03/06/2019 1253 Last data filed at 03/05/2019 2300 Gross per 24 hour Intake 120 ml Output 300 ml Net -180 ml PHYSICAL EXAM: ENVIRONMENTAL SCIENTISTS: Alert and oriented HEENT: No oral lesions, no oral ulcers, dentition is good, Eyes: PER Neck: Unremarkable; No adenopathy or JVD Cardiovascular: Regular rhythm Respiratory: Clear to auscultation Abdomen: Soft and Nontender Extremities: Edema- No Skin: Abnormalities- Yes, mildly diaphoretic VENTILATOR INFORMATION: Not applicable. WEANING DATA: Settings: Patient Data: Weaning Data: INDWELLING CATHETERS: Lines, Drains, and Airways Line Peripheral 03/05/19 2200 Short Left Forearm 20 Gauge less th an 1 day INPATIENT MEDICATIONS: Current Facility-Administered Medications Medication Dose Route Frequency - perflutren lipid microspheres 1.1 mg/mL 1.3 mL injec tion (DEFINITY) 1.3 mL INTRAVENOUS DIRECTED PRN - predniSONE 10 mg tab(s) (DELTASONE) 10 mg ORAL DAILY - potassium chloride 80-120 mEq oral liquid 80-120 mEq ORAL/FEEDING TUBE PRN - potassium chloride iv piggyback 20 mEq/100 mL 20 mEq INTRA VENOUS PRN - magnesium sulfate in water 2 g in sterile water 50 ml 2 g INTRAVENOUS PRN - sodium glycerophosphate 45 mmol in NaCl 0.9% 250 mL (GLYCO PHOS) 45 mmol INTRAVENOUS PRN - calcium gluconate 4 g in NaCl 0.9% 250 mL 4 g INTRAVENOUS PRN - naproxen 500 mg tab(s) (NAPROSYN) 500 mg ORAL BID - colchicine 0.6 mg tab(s) 0.6 mg ORAL BID - [START ON 03/07/2019] DULoxetine 30 mg cap(s) (CYMBALTA) 30 mg ORAL BID NUTRITION: Enteral Feeds: No DATA: BLOOD GAS: No results for input(s): VPH , VPC2, VPO2C, RESPHCO3, BASEX, X2IWMFTS, PH, PCO2, RESPHCO3, BASEX, [id number] in the last 168 hours. Invalid input(s): PO2C CBC: Recent Labs 03/06/19599 WBC 3.89* HB 10.1* HCT 32.0* PLT 46* MCV 87.7 COAG: No results for input(s): APTT, INR in the last 168 barbara rs. BMP: Recent Labs 03/06/1959903/05/192039 GLUC 97 95 NA 137 136 K 4.0 4.4 CHLOR 105 106 CO2 25 25 ANION 11 9 BUN 20* 16 CREAT 1.07* 0.80 CHEM: Recent Labs 03/06/1959903/05/192039 ALB 2.1* 2.1* TPROT 5.9* 6.2* CA 7.6* 7.7* HEPATIC: Recent Labs 03/06/1959903/05/192039 ALKPHOS 59 64 ALT 19 19 AST 19 18 TBILI 0.4 0.3 URINALYSIS: No results for input(s): PH, SPGR, UGLUC, UBILI, UKET, UHB, UPROT, UROBIL, UWBC, SSA in the last 168 hours. Invalid input(s): NITR 03/06/2019 ?8:29 AM - Interface, [facility] Ib Component Results Component Value Range AND Units Status Performing Lab Procalcitonin 0.11 ng/mL Final [facility] CARDIAC: No results for input(s): CKTEST , CKMB, CKMBP, TROPT, PBNP in the last 168 hours. STAT ECHO - 03/05/19 Left ventricular systolic function is normal. EF = 55 ? 5% (visual est.) - There is large circumferential pericardial effusion measur ing 4.9 cm. It is most pronounced?around the left ventricle. There appea rs to be some echogenic material within th e effusion.The inflow velocity variation across the atrial ventricular valves is not suggestive of tamponade, bu t there is significant ?swinging motion of the heart. There is some systolic indentation of the right atrium, and diastolic indent ation of the right ventricle. The inferior vena cava is plethoric, and does not collapse with inspiration. Data s uggest early tamponade. ? 02/15/2019 bilateral lower extremity ultrasound for DVT Negative in both extremities 03/05/2019 DVT Bilateral Lower Extremity Duplex IMPRESSION Suboptimal visualization of the calf veins. ?The remaining v eins demonstrate normal compressibility and blood flow with no co nvincing evidence of DVT bilateral lower extremities. Subcutaneous edema. 03/06/19 1115 pneumatic compression stockings ([place], [place]) 03/06/19 1115 activity - mobilize patient ([place], [place]) 03/05/192029 vte non-pharmacologic prophylaxis - none indic ated ([place]) 03/05/192029 vte current anticoag therapy ([place], [place]) VTE Prophylaxis: VTE prophylaxis appropriate Assessment/Plan IMPRESSION: - Large pericardial effusion/ pericarditis - Pulmonary embolism diagnosed 3 weeks ago - Pancytopenia -> followed by hematology at [facility] - Systemic Lupus Erythematosus/ RA -> on chronic 10mg/day pr ednisone - BMI 45 PLAN: - Hold Eliquis - Plan is pericardiocentesis in catheter lab tomorrow. - Continue to observe in ICU setting for now - Hold off on IVC filter, since bilateral extremity Dopplers are negative. - Attempt to restart anticoagulation aft er pericardiocentesis complete, and in the pericardial effusion is not hemorrhagic. - Continue daily chronic prednisone 10 mg daily - Continue colchicine and naproxen as per cardiology. - Bilateral lower extremity SCDs This patient has a high probability of sudden, clinically si gnificant deterioration, which requires the highest level of phy sician preparedness to intervene urgently. I manage d/supervised life or organ supporting interventions that required frequent physi corby assessment. I devoted my full attention to the direct care of this patient for the amount of time indicated below. Time I spent with family or surroga te(s) is included only if the patient was incapable of providing the necessary information or participating in medical decision making. Time devoted to teaching and to any proc edures I billed separately is not included. Patient/Family Updated: Patient updated Code status: Full Discussed with Respiratory t herapist, Registered Nurse, Pharmacist and Residents while performing multidisciplinary rounds. Time spent providing critical care services: 30 minutes. SIGNATURE: Valerie Cantrell MD [facility] PAGER:[phone] DATE of SERVICE: March 06, 2019 TIME of SERVICE: 12:53 PM history physical on 2019-03-05 HISTORY PHYSICAL HNO ID: [id number] Normal 02-15 [facility] Author: [facility] Service: Cardiovascular Disease ([id number]) Author Type: Physician Type: HANDP Filed: 03/06/2019 12:35 PM Note Text: CONSULT: CARDIOLOGY SERVICE SERVICE DATE: 03/05/2019 SERVICE TIME: 6:30PM CONSULTING PHYSICIAN: BLANCHE Ledesma PCP: Nabeel Sanders DO ATTENDING: Elías Wahl REASON FOR CONSULT: Pericardial effusion Subjective CHIEF COMPLAINT: pericardial effusion hcap pe HISTORY OF PRESENT ILLNESS: Ms. Franco is a 33 year old female with a PMH of - post cardiomyopathy EF 55% February 2014, - reported SLE/RA on immunosuppression prednisone 10 mg ( fo llows up with Dr Jara in [place]), - post depression, - migraine who presents for c/o shortness of breath from [facility]. She had been admitted there for c/o cough around 3 weeks back and wa s diagnosed with a pulmonary embolus, started on apixaban. She had also been given antibiotics initially but none at home. She had been feeling a little better after that but has had an ongoing cough, initially no n productive and now is productive of yellow sputum since 2 days, no hemo ptysis. Had a negative US for DVT. Only on prednisone for SLE, recently ta christa off belimumab. She started developing shortness of breath yesterday which b ecame progressively worse along with pleuritic chest pain and she presented to [facility]. Has associated leg swelling since the last week, lightheadedness since yesterday, orthopnea since 3 weeks. She has also had some runny nose, soreness in her throat. C/ o having fever 100-101 with some chills in the last few days to weeks. She denies any trauma, malignancy, radiation therapy. Of not e, she did have a CT scan on 02/14/19 which showed the pericardial effus ion. Unsure about the size. She was given breathing treatments in [place] and per report s, a bedside echo was done which was concerning for pericardial effusion, possible tamponade. She has been taking apixaban regularly, last dose this morni ng at 8 AM. REVIEW OF SYSTEMS: General : Has had change in appetite. No weight loss HEENT : No epistaxis, headache. RS : As in HPI CVS : See HPI. GI : Has had some loose stools, not more than 3 a day. Denie s abdominal pain, nausea, vomiting, constipation, hematochezia, melena. : Denies dysuria, frequency, urgency, hematuria, incontin ence. MSK : has had arthralgias for some time, worse in the last w robinson after being taken off belimumab 3 weeks ago. Usually has hair loss , malar rash also with SLE flare. Skin : No Rash, no h/o cancer. Neuro : Denies numbness, weakness, paraesthesias. Hem : Denies lymph node swelling. PAST MEDICAL HISTORY Diagnosis Date - Abnormal glandular Papanicolaou smear of cervix Abn. Pap smear (cervix) - Cardiomyopathy 01/21/2010 post - Carpal tunnel syndrome - Dysthymic disorder Depression (non-psychotic) - Gestational diabetes mellitus, antepartum 03/16/2014 - Lupus (HCC) - Migraine, unspecified, with intractable migraine, so state d, without mention of status migrainosus Migraine - Obesity - depression - Psoriatic arthritis (HCC) - Rheumatoid arthritis (HCC) - Systemic lupus erythematosus (HCC) PAST SURGICAL HISTORY Procedure Laterality Date - ANESTH, SECTION 03/22/2014 - APPENDECTOMY - DELIVERY ONLY 01/14/2010 , low transverse - COLPOSCOPY (VAGINOSCOPY) Colposcopy - DANDC 11/2017 - LAP CHOLECYSTOENTEROSTOMY 06/2011 FAMILY HISTORY Problem Relation Age of Onset - Arthritis Mother rheumatoid - Thyroid Mother - Heart Mother - Lipids Father - Cancer Maternal Grandmother LUNG CANCER - Heart Maternal Grandmother - Thyroid Maternal Grandmother - Heart Paternal Grandmother - Thyroid Maternal Aunt - Thyroid Maternal Aunt Social History Tobacco Use - Smoking status: Never Smoker - Smokeless tobacco: Never Used Substance Use Topics - Alcohol use: Yes Comment: social alcohol use, not while - Drug use: No Cannot display prior to admission medications because the pa ryan has not been admitted in this contact. Current Facility-Administered Medications Medication Dose Route Frequency - perflutren lipid microspheres 1.1 mg/mL 1.3 mL injection ( DEFINITY) 1.3 mL INTRAVENOUS DIRECTED PRN ALLERGIES Allergen Reactions - Codeine GI Upset States sharp stomach pains - Doxycycline Hives - Percocet [Oxycodone* Hives, Anaphylaxis - Clindamycin Rash - Morphine Swelling uvula swelling - Penicillins Rash Objective PHYSICAL EXAM: 03/05/19 1845 03/05/19 1847 03/05/19 1853 03/05/19 1900 BP: (!) 153/127 136/99 Pulse: (!) 126 (!) 125 Resp: 23 29 Temp: 36.2 ?C (97.2 ?F) SpO2: 98% 98% Weight: 124 kg (273 lb 5.9 oz) 124 kg (273 lb 5.9 oz) Height: 165.1 cm (5' 5) General : Young white female well built and nourished sittin g in bed in mild distress, tachypneic. HEENT : No thrush, no oral ulcers. No pallor or icterus. Neck : Unable to see JVD, no carotid bruits. No LAD. RS : Normal vesicular breaths sounds heard bilaterally. Insp iratory crackles heard in bilateral bases. Short inspiratory effort. Accessory neck muscle use, RR in 30s, saturating 97% on 3L. CVS : S1, S2 heard. Tachycardic. Regular. No m/r/g. No tende rness to palpation. Abd : soft, non tender, non distended. Extremities : Some pitting and non pitting edema in both leg s. Pulses palpable radial, DP/PT bilaterally. Some swelling of her PIP joints in both hands, not much MCP joint involvement. No clear synovial thickening felt. Neuro : Alert and oriented to time, place and person. Body mass index is 45.49 kg/m?. No data recorded No data found. DATA: Diagnostic tests reviewed for today's visit: WBC - 5.2, Hb 10.8, MCV 85.8, Platelets 56. INR - 1.0 Na - 135, K 5.3, CO2 - 23, Cl 103, Cr 0.86, LA 1.2, AST 44, ALT 22, Trop - < 0.015 Alb 2.2 Urine - Protein 500, urine leukocyte esterase 25, urine WBC 10-25 CXR - Questionable right basilar infiltrate/atelectasis. EKG : Sinus tachycardia. Low voltages in lead II, III, aVF, aVR, aVL. No significant ST-T changes. Past 72 Hour Labs: Last Lab Drawn: TSH 3.810 07/09/2014 Prior Cardiac Workup: Echo : 02/20/14 - EF 55%, mildly dilated RV. Trivial TR. Impression/Recommendations 33 year old white female with a PMH of SLE/RA on prednisone, post cardiomyopathy with recovery, recent PE on apixaban presenti ng with worsening dyspnea and pleuritic chest pain found to have per icardial effusion. # Pericardial effusion - 2/2 recent PE v SLE/RA v viral woodrow carditis - STAT echo ordered to assess for tamponade. - Clinically has concerning signs with low pulse pressure, s ignificant tachycardia, tachypnea. No pulsus paradoxus - Hold apixaban for now. With her being on anticoagulation, low platelet count, pericardiocentesis will be with elevated risk. - Possibility of an SLE flare is there with her having some features. Will resume home prednisone for now, 10mg. Check ESR, CRP. - Start naproxen 500m bid and colchicine 0.6mg daily for pos sible pericarditis. # Pulmonary embolism, likely provoked. - On home apixaban. H old for now. - Patient reports taking OCP upto around a week before diagn osis of PE. Denies other risk factors. SLE would also put her at a highe r risk. - Was supposed to have 4 months AC per her. Will have to cla rify this later on. # Cough - possible pneumonia. Received a dose of levofloxaci n. Monitor for now. - Check procalcitonin although may be affected by pericardia l effusion, SLE/RA. # SLE, RA - As above. - She may be having a SLE flare although hard to say. Await CRP, ESR. Also check C3, C4 for disease activity factors. Can consider [facility] [id number] and BILAG scores and discussion with rheumatology about poss ibly treating a flare. - Continue prednisone 10mg for now. # History of post cardiomyopathy # PPx - Hold SCD's until checked for DVT. Discussed with Dr Blount. Addendum : [address] Blount. There are concerning features on her echo cardiogram with RA collapse in systole and some RV collapse in diastole as well concerning for early tamponade. STAT ECHO - 03/05/19 Left ventricular systolic function is normal. EF = 55 ? 5% (visual est.) - There is large circumferential pericardial effusion measur ing 4.9 cm. It is most pronounced?around the left ventricle. There appea rs to be some echogenic material within the effusion.The inflow velocity v ariation across the atrial ventricular valves is not suggestive of tamponade, bu t there is significant ?swinging motion of the heart. There is some systolic indent ation of the right atrium, and diastolic indentation of the right ventricle. Th e inferior vena cava is plethoric, and does not collapse with inspiration. Data s uggest early tamponade. Given her particular case with recent anticoagulation ( apix aban), platelet count of 56 she is at a high risk for bleeding. Risk v benefit assessment at this time done and decision mad e to hold off on doing emergent pericardiocentesis. Will continue to monit or her for signs of hemodynamic instability at which point, benefits ma y outweigh risk of bleeding. Also discussed with Dr Santiago about her recent pulmonary emb olism and anticoagulation. Believe it would be best to hold any antico agulation at this time due to apixaban and low platelet count with the po ssibility of bleeding into the pericardium. Will perform an US DVT LE for any clots. If present and ascencion ot be anticoagulated, will need to consider an IVC filter. Obtain medical record for pulmonary embolism. Discussed with patient. I personally saw and evaluated the patient. Discussed with félix zazueta resident. I agree with resident's findings and plan as documented in félix zazueta resident's note, unless noted otherwise. Critical Care Documentation: The patient has the following o rgan/system impairment(s): *Large pericardial effusion with changes of early tamponade. *ASystemic Lupus erythematosis, with possible flare. * Acute Thrombocytopenia * Recent pulmonary embolism This patient has a high probability of sudden, clinically si gnificant deterioration, which requires the highest level of physician preparedness to intervene urgently. I managed/supervised life or organ taylor pporting interventions that required frequent physician assessment. I devoted my full attention to the direct care of this patient for the am ount of time indicated below. Time I spent with family or surrogate(s) is included only if the patient was incapable of providing the necessary information or participating in medical decision making. Time devoted to teaching is not included. ?? Time spent providing critical care services: 60 minutes excl uding procedures. SIGNATURE: BLANCHE Ledesma PATIENT NAME: Kendra Franco DATE: March 05, 2019 TIME: 6:04 PM PAGER/CONTACT #: [phone] crp on 2019-03-05 CRP [Mass/Vol] 9.11 0.00-0.30 mg/dL High 03-05-2019 [facility] ([id number]) Comment: Performed By: #### CRP3 #### [facility] [address] [id number] consult on CONSULT HNO ID: [id number] Normal 03-05-2019 [facility] Author: Hayder Garsia [facility] Service: Critical Care ([id number]) Author Type: Physician Type: Consults Filed: 03/06/2019 1:52 AM Note Text: Asked to see this patient for management of recently diagnos ed acute PE in the setting of cardiac tamponade. D/w Dr Hartman. History and physical of the pt done independent ly by me. History: Ms Franco is a 33 year old white woman with PMH of morbid obes ity, lupus on chronic prednisone (diagnosed 2 years ago but was previously was diagnosed with RA), recent diagnosis of acute PE ( 3 weeks ago at [facility]) on eliquis, recently diagnosed pericardial effusion, and histor y of post- V BELT BUILDER with complete recovery admitted for SOB and pleuritic chest pain. She had started to feel better after her PE Rx b ut then started having SOB which was worse along with cough and feve rs in the last 1 week. Last dose of eliquis 1 week ago. Full ROS with the pt done - some leg swelling; admits to sno ring and EDS; denies any FH of DVT/ PE or PH. 10 systems otherwise negativ e. Pt found to have pericardial effusion at [place] and sent here. PMH: As above PSH: appy and FH: No FH of DVT/ PE SH: No IVDA or smoking or alchol All: PCN/ clinda, doxy, codeine Meds: Reviewed On exam: Vitals noted - tachycardic and with tachypnea; no pulsus par adoxus clinically Lying in bed; NAD but anxious Morbidly obese; slight use of accessory muscles of breathing A, O times 3, no FND Tachy but regular, no M/R/G; hard to appreciate any JVD elev ation Bibasilar crackles noted posteriorly Soft, obese, NT Mostly non-pitting pedal edema b/l; more so on the left side Rest normal Data: Na 136, K 4.4, Cr 0.8 WCC 5.2, Hb 10.8, Plt 56 ESR 76, CRP 9.1 INR 1 LA 1.2 CXR - shows CM, left basilar atelectasis ECHO: - Left ventricular systolic function is normal. EF = 55 ? 5% (visual est.) - There is large circumferential pericardial effusion measur ing 4.9 cm. It is most pronounced?around the left ventricle. There appears to be some echogenic material within the effusion.The inflow velocity v ariation across the atrial ventricular valves is not suggestive of ta mponade, but there is significant ?swinging motion of the heart. There is some systolic indentation of the right atrium, and diastolic indentation o f the right ventricle. The inferior vena cava is plethoric, and does not collapse with inspiration. Data suggest early tamponade. ECHO 02/2014: Mildly dilated RV; normal LV Fx IMPRESSION: Ms Franco is a 33 year old white woman with PMH of morbid obes ity, lupus on chronic prednisone (diagnosed 2 years ago but was previously was diagnosed with RA), recent diagnosis of acute PE ( 3 weeks ago at [facility]) on eliquis, recently diagnosed pericardial effusion, and histor y of post- V BELT BUILDER with complete recovery admitted for SOB and pleuritic chest pain. 1. Pericardial effusion with early ECHO findings of tamponad e - viral infection vs related to lupus vs PE related (less likely) vs bleeding from thrombocytopenia/ eliquis vs cannot exclude PH concerns 2. Possible bronchitis vs PNA - CAP 3. Recent diagnosis of acute PE - extent not known and likel y provoked (OCP/ obesity/ lupus are risk factors) 4. Morbid obesity 5. Likely MARIE 6. SLE with possible flare 7. Chronic T-penia thought to be related to SLE PLAN: - hold eliquis for now - no acute indication for IV heparin and will hold for likel y pericardiocentesis - pericardiocentesis per cardio - if AC is contraindicated from a cardiac standpoint, we may have to consider an IVC filter irrespective of whether she has DVT o r not - check PCT and consider Abx - will need OP PSG - will follow with you Code status: full PROGNOSIS: Fair Discussed with Luis Angel Hartman and Maria R. This patient has a high probability of sudden, clinically si gnificant deterioration, which requires the highest level of physician preparedness to intervene urgently. I managed/supervised life or organ taylor pporting interventions that required frequent physician assessment. I devoted my full attention to the direct care of this patient for the am ount of time indicated below. Time I spent with family or surrogate(s) is included only if the patient was incapable of providing the necessary information or participating in medical decision making. Time devoted to teaching and to any procedures I billed separately is not included. Critical Care Documentation: The patient has the following o rgan/system impairment(s): Complex life-threatening medical problem(s) and tamponade/ r ecent acute PE Time spent providing critical care services: 35 minutes. SIGNATURE: Hayder Howard MD [facility] PAGER:[phone] ? CONSULT HNO ID: [id number] Normal 03-05-2019 Brianne [facility]aña Author: Ras (Res) [facility] Service: Critical Care ([id number]) Author Type: Resident Type: Consults Filed: 03/05/2019 10:26 PM Note Text: Attestation signed by Hayder Howard at 9 1:23 AM [facility] [place] PH[facility] NOTE OF PERSONAL INVOLVEMENT IN CARE I have reviewed the consult note aakash son and documented by the resident and I personally participated in the otto components. I have discussed the case and management of the patient's care. The following comments rev ise or confirm relevant otto components of the note and have added additional documentation as needed. Please see my separate note. SIGNATURE: Hayder Howard MD [facility] PAGER:[phone] CRITICAL CARE CONSULT NOTE SERVICE DATE: 03/05/2019 SERVICE TIME: 8:44 PM REASON FOR CONSULT: Anticoagulation for PE in the setting of early cardiac tamponade. REQUESTING PHYSICIAN: Dr Leonard Blount. ? ADMITTING PROVIDER: Elías Wahl SERVICE DATE: 03/05/2019 SERVICE TIME: 8:44 PM Admission Date: 03/05/2019 AGE: [age] year old LOS: 0 days Subjective Ms. 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 She had been admitted there for c/o cough around 3 weeks back and wa s diagnosed with a pulmonary embolus, started on apixaban. She had also been given antibiotics initially but none at home. She had been feeling a little better after that but has had an ongoing cough, initially no n productive and now is productive of yellow sputum since 2 days, no hemo ptysis. Had a negative US for DVT. Only on prednisone for SLE, recently ta christa off belimumab. She started developing shortness of breath yesterday which b ecame progressively worse along with pleuritic chest pain and she presented to [facility]. Has associated leg swelling since the last week, lightheadedness since yesterday, orthopnea since 3 weeks. She has also had some runny nose, soreness in her throat. C/ o having fever 100-101 with some chills in the last few days to weeks. She denies any trauma, malignancy, radiation therapy. Of not e, she did have a CT scan on 02/14/19 which showed the pericardial effus ion. Unsure about the size. ? She was given breathing treatments in [place] and per report s, a bedside echo was done which was concerning for pericardial effusion, possible tamponade. ? She has been taking apixaban regularly, last dose this morni ng at 8 AM. REVIEW OF SYSTEMS: ? General : Has had change in appetite. No weight loss HEENT : No epistaxis, headache. RS : As in HPI CVS : See HPI. GI : Has had some loose stools, not more than 3 a day. Denie s abdominal pain, nausea, vomiting, constipation, hematochezia, melena. : Denies dysuria, frequency, urgency, hematuria, incontin ence. MSK : She has some joint pain which is ongoing since being t aken off Belimumab. Her typical SLE flares include hair loss, severe joint pain. Skin : No Rash, no h/o cancer. Neuro : Denies numbness, weakness, paraesthesias. Hem : Denies lymph node swelling. Objective PROBLEMS: ACTIVE PROBLEM LIST Cardiomyopathy, Peripartum, Tramaine (Generalized Anxiety Disorder) Lichen Simplex Chronicus History of Depression Frequency of Urination Obesity in , Antepartum History of Lupus (Hcc) Thrombocytopenia Affecting (Hcc) Pericardial Effusion PAST MEDICAL HISTORY Diagnosis Date - Abnormal glandular Papanicolaou smear of cervix Abn. Pap smear (cervix) - Cardiomyopathy 01/21/2010 post - Carpal tunnel syndrome - Dysthymic disorder Depression (non-psychotic) - Gestational diabetes mellitus, antepartum 03/16/2014 - Lupus (HCC) - Migraine, unspecified, with intractable migraine, so state d, without mention of status migrainosus Migraine - Obesity - depression - Psoriatic arthritis (HCC) - Rheumatoid arthritis (HCC) - Systemic lupus erythematosus (HCC) PAST SURGICAL HISTORY Procedure Laterality Date - ANESTH, SECTION 03/22/2014 - APPENDECTOMY - DELIVERY ONLY 01/14/2010 , low transverse - COLPOSCOPY (VAGINOSCOPY) Colposcopy - DANDC 11/2017 - LAP CHOLECYSTOENTEROSTOMY 06/2011 Social History Socioeconomic History Marital status: Spouse name: Not on file Number of children: 2 Years of education: 13 Highest education level: Not on file Social Needs Financial resource strain: Not on file Food insecurity - worry: Not on file Food insecurity - inability: Not on file Transportation needs - medical: Not on file Transportation needs - non-medical: Not on file 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 BP 136/99 Pulse 125 Temp 97.2 Resp 29 Ht 5' 5 (1.65 m) Wt 273 lb 5.9 oz (124.0kg) SpO2 98% BMI 45.49 kg/(m2). O2 Therapy: Nasal Cannula, Liters: 2 Temp (24hrs), Av.2 ?C (97.2 ?F), Min:36.2 ?C (97.2 ?F), Max:36.2 ?C (97.2 ?F) NET FLUID BALANCE No intake or output data in the 24 hours e nding 03/05/192043 MEDICATIONS Current Facility-Administered Medications Medication Dose Route Frequency - perflutren lipid microspheres 1.1 mg/mL 1.3 mL injection ( DEFINITY) 1.3 mL INTRAVENOUS DIRECTED PRN - predniSONE 10 mg tab(s) (DELTASONE) 10 mg ORAL DAILY - DULoxetine 60 mg cap(s) (CYMBALTA) 60 mg ORAL DAILY - potassium chloride 80-120 mEq oral liquid 80-120 mEq ORAL/ FEEDING TUBE PRN - potassium chloride iv piggyback 20 mEq/100 mL 20 mEq INTRA VENOUS PRN - magnesium sulfate in water 2 g in sterile water 50 ml 2 g INTRAVENOUS PRN - sodium glycerophosphate 45 mmol in NaCl 0.9% 250 mL (GLYCO PHOS) 45 mmol INTRAVENOUS PRN - calcium gluconate 4 g in NaCl 0.9% 250 mL 4 g INTRAVENOUS PRN - naproxen 500 mg tab(s) (NAPROSYN) 500 mg ORAL BID - colchicine 0.6 mg tab(s) 0.6 mg ORAL DAILY Lines, Drains, and Airways Line Peripheral 03/05/19 1851 Assessment Short Right Forearm 22 G auge less than 1 day PHYSICAL EXAM PERFORMED: 03/05/19 18403/05/19 18403/05/19 18503/05/19 1900 BP: (!) 153/127 136/99 Pulse: (!) 126 (!) 125 Resp: 23 29 Temp: 36.2 ?C (97.2 ?F) SpO2: 98% 98% Weight: 124 kg (273 lb 5.9 oz) 124 kg (273 lb 5.9 oz) Height: 165.1 cm (5' 5) General : Young white female well built and nourished sittin g in bed in mild distress, tachypneic. HEENT : No thrush, no oral ulcers. No pallor or icterus. Neck : Unable to see JVD, no carotid bruits. No LAD. RS : Normal vesicular breaths sounds heard bilaterally. Insp iratory crackles heard in bilateral bases. Short inspiratory effort. Accessory neck muscle use, RR in 30s, saturating 97% on 3L. CVS : S1, S2 heard. Tachycardic. Regular. No m/r/g. No tende rness to palpation. Abd : soft, non tender, non distended. Extremities : Some pitting and non pitting edema in both leg s. Pulses palpable radial, DP/PT bilaterally. Neuro : Alert and oriented to time, place and person. Respiratory/Nursing Documentation: O2 Therapy: Nasal Cannula (03/05/19 1900) HEMODYNAMIC DATA: Reviewed DATA: WBC - 5.2, Hb 10.8, MCV 85.8, Platelets 56. INR - 1.0 Na - 135, K 5.3, CO2 - 23, Cl 103, Cr 0.86, LA 1.2, AST 44, ALT 22, Trop - < 0.015 Alb 2.2 Urine - Protein 500, urine leukocyte esterase 25, urine WBC 10-25 CXR - Questionable right basilar infiltrate/atelectasis. ? EKG : Sinus tachycardia. Low voltages in lead II, III, aVF, aVR, aVL. No significant ST-T changes. Echo : 02/20/14 - EF 55%, mildly dilated RV. Trivial TR. STAT ECHO : 03/05/19 Left ventricular systolic function is normal. EF = 55 ? 5% ( visual est.) - There is large circumferential pericardial effusion measur ing 4.9 cm. It is most pronounced?around the left ventricle. There appea rs to be some echogenic material within the effusion.The inflow velocity v ariation across the atrial ventricular valves is not suggestive of tamponade, bu t there is significant ?swinging motion of the heart. There is some systolic indent ation of the right atrium, and diastolic indentation of the right ventricle. Th e inferior vena cava is plethoric, and does not collapse with inspiration. Data s uggest early tamponade. LABS: ABG: Invalid input(s): [id number] Assessment/Plan IMPRESSION: 33 year old white female with a PMH of SLE/RA on prednisone, post cardiomyopathy with recovery, recent PE on apixaban presenti ng with worsening dyspnea and pleuritic chest pain found to have per icardial effusion. # Pericardial effusion - 2/2 recent PE v SLE/RA v viral woodrow carditis, possible hemorrhagic effusion with early tamponade. - Patient is at high risk for bleeding given her low platele t count and recent apixaban use. - Recommend holding off anticoagulation for now given risk o f worsening effusion, hemorrhage. - Management of the effusion per CVICU for now. - Monitor for hemodynamic compromise. - Check STAT US LE for DVT. May need IVC filter in the short term if cannot be anticoagulated. # Pulmonary embolism, possibly provoked by OCP use - She is at high risk with her diagnosis of SLE as well. - As above, hold off on anticoagulation in this setting. - Will need atleast 3 months of anticoagulation, consider neal marrero in the outpatient setting. SIGNATURE: BLANCHE Ledesma PATIENT NAME: Kendra Franco DATE: March 05, 2019 TIME: 8:44 PM Pager [phone] comprehensive panel on 2019-03-05 ALP [Catalytic activity/Vol] 64 45-117 U/L Normal 0 03-05-2019 [facility] (00 [phone]) Comment: Performed By: #### P14 #### [facility] [address] [place], [place] [address] Bilirubin [Mass/Vol] 0.3 0.2-1.0 mg/dL Normal [facility] ([id number]) Comment: Performed By: #### P14 #### [facility] [address] [place], [place] [address] Protein [Mass/Vol] 6.2 6.4-8.2 g/dL Low 03-05-2019 [facility] ([id number]) Comment: Performed By: #### P14 #### [facility] [address] [place], [place] [address] ALT [Catalytic activity/Vol] 19 12-78 U/L Normal 0 03-05-2019 [facility] (00 [phone]) Comment: Performed By: #### P14 #### [facility] [address] [place], [place] [address] AST [Catalytic activity/Vol] 18 15-37 U/L Normal 0 03-05-2019 [facility] (00 000) Comment: Performed By: #### P14 #### [facility] [address] [place], [place] [address] Creatinine [Mass/Vol] 0.80 0.51-0.95 mg/dL Normal 03-05-20 [facility] (00 000) Comment: Performed By: #### P14 #### [facility] [address] [place], [place] [address] Albumin [Mass/Vol] 2.1 3.4-5.0 g/dL Low 03-05-2019 [facility] ([id number]) Comment: Performed By: #### P14 #### [facility] [address] [place], [place] [address] Anion gap [Moles/Vol] 9 8-16 mmol/L Normal 03-05-20 [facility] ([id number]) Comment: Performed By: #### P14 #### [facility] [address] [place], [place] [address] CO2 [Moles/Vol] 25 21-32 mEq/L Normal 03-05-2019 [facility] ([id number]) Comment: Performed By: #### P14 #### [facility] [address] [place], [place] [address] Urea nitrogen [Mass/Vol] 16 7-18 mg/dL Normal 03-05 [facility] ([id number]) Comment: Performed By: #### P14 #### [facility] [address] [place], [place] [address] Calcium [Mass/Vol] 7.7 8.5-10.1 mg/dL Low 03-05-2019 [facility] ([id number]) Comment: Performed By: #### P14 #### [facility] [address] [place], [place] [address] Glucose [Mass/Vol] 95 70-99 mg/dL Normal 03-05-2019 [facility] ([id number]) Comment: Performed By: #### P14 #### [facility] [address] [place], [place] [address] Chloride [Moles/Vol] 106 98-107 mEq/L Normal [facility] ([id number]) Comment: Performed By: #### P14 #### [facility] [address] [place], [place] [address] Potassium [Moles/Vol] 4.4 3.5-5.1 mEq/L Normal 03-05-20 [facility] ([id number]) Comment: Performed By: #### P14 #### [facility] [address] [place], [place] [address] Sodium [Moles/Vol] 136 136-145 mEq/L Normal 03-05-2019 [facility] ([id number]) Comment: Performed By: #### P14 #### [facility] [address] [place] [id number] progress on 2019-01 Protein mass conc HNO ID: [id number] Normal [facility] Author: Melvin Fisher [place] ([id number]) Service: ? Author Type: Physician Type: Progress Notes Filed: 01/25/2019 12:30 PM Note Text: history physical on 2019-01-25 HISTORY HNO ID: [id number] Normal 01-25-2019 [place] PHYSICAL Author: Melvin Fisher [facility] Service: ? [place] Author Type: Physician ([id number]) Type: HANDP Filed: 01/25/2019 12:30 PM Note Text: Pre-Op History and Physical HPI: The patient is a 33 year old female presenting for pre- operative visit. She is scheduled for laparoscopic bilateral salpingectomy, f or sterilization on 02/06/19. Procedure discussed along with risks, benefits a nd complications. Other alternatives discussed for management. Consent form signed? Yes. PAST MEDICAL HISTORY Diagnosis Date - Abnormal glandular Papanicolaou smear of cervix Abn. Pap smear (cervix) - Cardiomyopathy 01/21/2010 post - Carpal tunnel syndrome - Dysthymic disorder Depression (non-psychotic) - Gestational diabetes mellitus, antepartum 03/16/2014 - Lupus (HCC) - Migraine, unspecified, with intractable migraine, so state d, without mention of status migrainosus Migraine - Obesity - depression - Psoriatic arthritis (HCC) - Rheumatoid arthritis (HCC) - Systemic lupus erythematosus (HCC) PAST SURGICAL HISTORY Procedure Laterality Date - ANESTH, SECTION 03/22/2014 - APPENDECTOMY - DELIVERY ONLY 01/14/2010 , low transverse - COLPOSCOPY (VAGINOSCOPY) Colposcopy - DANDC 11/2017 - LAP CHOLECYSTOENTEROSTOMY 06/2011 Current Outpatient Medications: pseudoephedrine-guaiFENesin (,MUCINEX-D,) 60-600 mg per tabl et guaiFENesin / Pseudoephedrine Guaifenesin/Pseudoephedrne Hcl 1 EA PO TWI CE A DAY 14 January 19, 2019 Active 01-19-2019 [facility] ([id number]) Disp: Rfl: belimumab (BENLYSTA) 200 mg/mL syrg Inject subcutaneously. D isp: Rfl: BIOTIN ORAL Take 1 tablet by mouth once daily. Disp: Rfl: DULoxetine (CYMBALTA) 60 mg capsule Disp: Rfl: predniSONE (DELTASONE) 5 mg tablet Take 10 mg by mouth once daily. as necessary Disp: Rfl: azathioprine (IMURAN ORAL) Take by mouth. Disp: Rfl: LISINOPRIL ORAL Take by mouth. Disp: Rfl: FOLIC ACID ORAL Take by mouth. Disp: Rfl: No current facility-administered medications for this visit. 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[employer] Tobacco Use Smoking status: Never Smoker Smokeless tobacco: Never Used Substance and Sexual Activity Alcohol use: Yes Comment: social alcohol use, not while Drug use: No Sexual activity: Yes Partners: Male Comment: vasectomy Other Topics Concerns: Not on file Social History Narrative Not on file FAMILY HISTORY: FAMILY HISTORY Problem Relation Age of Onset - Arthritis Mother rheumatoid - Thyroid Mother - Heart Mother - Lipids Father - Cancer Maternal Grandmother LUNG CANCER - Heart Maternal Grandmother - Thyroid Maternal Grandmother - Heart Paternal Grandmother - Thyroid Maternal Aunt - Thyroid Maternal Aunt REVIEW OF SYMPTOMS: The risks/benefits/alternatives and personal involved for th e planned laparoscopic bilateral salpingectomy were reviewed with the patient. Her questions were answered to her satisfaction and she desires to proceed. Consent was signed. I reviewed with her postop instructions and expectations. PHYSICAL EXAMINATION: VITALS: Blood pressure 132/88, pulse 96, resp. rate 16, heig ht 5' 5 (1.651 m), weight 285 lb (129.3 kg), last menstrual period 0 01/06/2019. GENERAL: The patient is well nourished, well hydrated in no acute distress. , The patient is oriented to time, place, and pers on. NECK: Supple. No lynphadenopathy, normal thyroid, no thyrome gabe. LUNGS: Clear to auscultation bilaterally. no wheezes, rhonch i or rales HEART: Regular rate and rhythm, Normal heart sounds and No m urmurs or gallops IMPRESSION: The risks/benefits/alternatives and personal inv olved for the planned laparoscopic bilateral salpingectomy were reviewed w ith the patient. Her questions were answered to her satisfaction and she desires to proceed. Consent was signed. I reviewed with her postop i nstructions and expectations. PLAN: sterilization request I have reviewed and updated past medical and surgical histor y, medications and allergies Melvin Fisher M.D. cnov on 2019-01-25 CNOV Office Visit (WOOB) Normal 01-25-2019 [place] [facility] KENDRA FRANCO ([id number]) 1985 [facility] Date Time Provider Department ([id number]) 01/25/19 11:40 AM MELVIN FISHER WOCASSI During your visit today, we recorded the following informati on about you: Pulse Respiration Blood pressure Weight 96/minute 16/minute 132/88 129.3 kg Height 1.651 m Melvin Fisher MD 01/25/2019 12:30 PM Signed Melvin Fisher MD 01/25/2019 12:30 PM Signed Pre-Op History and Physical HPI: The patient is a 33 year old female presenting fo r pre-operative visit. She is scheduled for laparoscopic bilateral salpingect amanda, for sterilization on 02/06/19. Procedure discussed along with risks , benefits and complications. Other alternatives discussed for management. Consent form signed? Yes. PAST MEDICAL HISTORY Diagnosis Date - Abnormal glandular Papanicolaou smear of cervix Abn. Pap smear (cervix) - Cardiomyopathy 01/21/2010 post - Carpal tunnel syndrome - Dysthymic disorder Depression (non-psychotic) - Gestational diabetes mellitus, antepartum 03/16/2014 - Lupus (HCC) - Migraine, unspecified, with intractabl e migraine, so stated, without mention of status migrainosus Migraine - Obesity - depression - Psoriatic arthritis (HCC) - Rheumatoid arthritis (HCC) - Systemic lupus erythematosus (HCC) PAST SURGICAL HISTORY Procedure Laterality Date - ANESTH, SECTION 03/22/2014 - APPENDECTOMY - DELIVERY ONLY 01/14/2010 , low transverse - COLPOSCOPY (VAGINOSCOPY) Colposcopy - DANDC 11/2017 - LAP CHOLECYSTOENTEROSTOMY 06/2011 Current Outpatient Medications: pseudoephedrine-guaiFENesin (,MUCINEX-D,) 60-600 mg pe r tablet guaiFENesin / Pseudoephedrine Guaifenesin/Pseudoephedr ne Hcl 1 EA PO TWICE A DAY January 19, 2019 Active 01-19-2019 [facility] ([id number]) Disp: Rfl: belimumab (BENLYSTA) 200 mg/mL syrg Inject subcutaneously. D isp: Rfl: BIOTIN ORAL Take 1 tablet by mouth once daily. Disp: Rfl: DULoxetine (CYMBALTA) 60 mg capsule Disp: Rfl: predniSONE (DELTASONE) 5 mg tablet Take 10 mg by mouth once daily. as necessary Disp: Rfl: azathioprine (IMURAN ORAL) Take by mouth. Disp: Rfl: LISINOPRIL ORAL Take by mouth. Disp: Rfl: FOLIC ACID ORAL Take by mouth. Disp: Rfl: No current facility-administered medications for this visit. 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[employer] Tobacco Use Smoking status: Never Smoker Smokeless tobacco: Never Used Substance and Sexual Activity Alcohol use: Yes Comment: social alcohol use, not while Drug use: No Sexual activity: Yes Partners: Male Comment: vasectomy Other Topics Concerns: Not on file Social History Narrative Not on file FAMILY HISTORY: FAMILY HISTORY Problem Relation Age of Onset - Arthritis Mother rheumatoid - Thyroid Mother - Heart Mother - Lipids Father - Cancer Maternal Grandmother LUNG CANCER - Heart Maternal Grandmother - Thyroid Maternal Grandmother - Heart Paternal Grandmother - Thyroid Maternal Aunt - Thyroid Maternal Aunt REVIEW OF SYMPTOMS: The risks/benefits/alternatives and personal involved for th e planned laparoscopic bilateral salpingectomy were reviewed with the patient. Her questions were answered to her satisfaction and she desires to proceed. Consent was signed. I reviewed with her postop i nstructions and expectations. PHYSICAL EXAMINATION: VITALS: Blood pressure 132/8 8, pulse 96, resp. rate 16, height 5' 5 (1.651 m), weight 285 lb (129.3 kg), last menstrual period 01/06/2019. GENERAL: The patient is well nourished, well hyd rated in no acute distress. , The patient is oriented to time, place, and person. NECK: Supple. No lynphadenopathy, normal thyroid, no thyrome gabe. LUNGS: Clear to auscultation bilaterally. no wheezes, rhonch i or rales HEART: Regular rate and rhythm, Normal heart dwight nds and No murmurs or gallops IMPRESSION: The risks/benefits/alternatives and personal inv olved for the planned laparoscopic bilateral salpingectomy were revi ewed with the patient. Her questions were answered to her satisfaction and she de sires to proceed. Consent was signed. I reviewed with her postop i nstructions and expectations. PLAN: sterilization request I have reviewed and updated past medical and surgical history, medications and allergies Melvin Fisher M.D. Referring Provider: SELF [[id number]] Allergies As of Date: 01/25/2019 Noted Allergy Reaction CODEINE 01/12/2012 8 - GI Upset Comments: States sharp stomach pains DOXYCYCLINE 07/28/2011 4 - Hives PERCOCET (OXYCODONE-ACETAMINOPHEN)07/22/2011 4 - Hives 10 - Anaphylaxis CLINDAMYCIN 05/09/2018 2 - Rash MORPHINE 10/21/2017 7 - Swelling Comments: uvula swelling PENICILLINS 11/28/2009 2 - Rash Date Reviewed: 01/25/2019 Reviewed by: Genie Andrade Ma - Fully Assessed Reason for Visit: Pre-Op Visit [1235] Primary Visit Diagnosis:Postop check [Z09] Other Visit Diagnosis:Postoperative pain [G89.18] Order(s):traMADol (ULTRAM) 50 mg tabletT rell 1 tablet by mouth every 6 hours as needed for up to 3 days.Disp: 12 tabletRfl: 0 naproxen (NAPROSYN) 375 mg tabletTake 1 tablet by mouth twic e daily with meals.Disp: 20 tabletRfl: 1 Prescriptions as of 01/25/2019 Sig: PSEUDOEPHEDRINE-GUAIFENESIN E* guaiFENesin / Pseudoephedrine * BELIMUMAB 200 MG/ML SUBCUTANE* Inject subcutaneously. BIOTIN ORAL Take 1 tablet by mouth once d* DULOXETINE 60 MG CAPSULE,KRISTOPHER* PREDNISONE 5 MG TABLET Take 10 mg by mouth once susan* TRAMADOL 50 MG TABLET Take 1 tablet by mouth every * NAPROXEN 375 MG TABLET Take 1 tablet by mouth twice * IMURAN ORAL Take by mouth. LISINOPRIL ORAL Take by mouth. FOLIC ACID ORAL Take by mouth. Problem List As Of Date 01/25/2019 Noted Resolved Supervision of Other High-Risk [O09.8*INVALID FOR* 01/27/2010 Routine general medical examination at a health*INVALID FOR* 10/13/2011 Class: Chronic More... Routine gynecological examination [Z01.419] INVALID FOR*09/18 Class: Chronic More... Cardiomyopathy, peripartum, [O90.3] INVALID FOR* More... TRAMAINE (generalized anxiety disorder) [F41.1] INVALID FOR* Impaired glucose tolerance [R73.02] INVALID FOR*04/11/2014 Lichen simplex chronicus [L28.0] INVALID FOR* Dyspareunia [QIK6491] INVALID FOR*04/11/2014 Pelvic cramping [R10.2] INVALID FOR*04/11/2014 Complex ovarian cyst [N83.299] INVALID FOR*04/11/2014 History of [Z98.891] INVALID FOR*04/11/2014 More... History of macrosomia in infant in prior pregna*INVALID FOR* 12/13/2017 More... Obesity, unspecified [E66.9] INVALID FOR*04/11/2014 More... History of depression [Z86.59] INVALID FOR* More... History of bronchitis [Z87.09] INVALID FOR*04/11/2014 More... Frequency of urination [R35.0] INVALID FOR* More... Elevated glucose [R73.09] INVALID FOR*04/11/2014 More... Maternal atypical antibody complicating pregnan*INVALID FOR* 04/11/2014 More... Gestational diabetes mellitus, antepartum [O24.*INVALID FOR* 04/11/2014 Antepartum multigravida of advanced maternal ag*INVALID FOR* 12/13/2017 More... History of delivery, currently pregnan*INVALID FOR* 12/13/2017 More... Obesity in , antepartum [O99.210] INVALID FOR* History of gestational diabetes in prior pregna*INVALID FOR* 12/13/2017 More... History of lupus [M32.9] INVALID FOR* More... Thrombocytopenia affecting (HCC) [O99*INVALID FOR* Prescriptions ordered this encounter Disp Refills Start End TRAMADOL 50 MG TABLET 12 t* 0 01/25/2019 01/28/2019 Class: Print RX Route: ORAL Sig: Take 1 tablet by mouth every 6 hours as needed for up t o 3 days. NAPROXEN 375 MG TABLET 20 t* 1 01/25/2019 Route: ORAL Sig: Take 1 tablet by mouth twice daily with meals. Encounter Status:Closed by MELVIN FISHER MD on 01/25/19 progress on 2018-12 Protein HNO ID: [id number] Normal 01-06-2019 [facility] Author: Melvin Fisher [facility] Service: ? [place] Author Type: Physician ([id number]) Type: Progress Notes Filed: 01/06/2019 3:42 PM Note Text: Kendra Franco is a 33 year old female who presents for prob mavis visit for contraception discussion. HPI: 33 YOF who reports that she's now been diagnosed with l upus by her lip cutter and has been started on new medication presen ts for follow-up. She has multiple complaints today and would like to eliminate her hormonal contraception. She has a history of somewhat he rebekah menses. She was on the Mirena in the past and did well with that for the first 2 years but she had some discomfort with intercourse and could feel it at times. In addition, she started to have some symptoms that s he thinks might have been related to the Mirena after was in for a cou ple years. Between her lupus, and her history of cardiomyopa thy, would be contraindicated for her and might impose life-threa tening issues for her and/or a fetus. She desires sterilization. PAST MEDICAL HISTORY Diagnosis Date - Abnormal glandular Papanicolaou smear of cervix Abn. Pap smear (cervix) - 11/27/2017 - Cardiomyopathy 01/21/2010 post - Carpal tunnel syndrome - Dysthymic disorder Depression (non-psychotic) - Gestational diabetes mellitus, antepartum 03/16/2014 - Lupus (HCC) - Migraine, unspecified, with intractable migraine, so state d, without mention of status migrainosus Migraine - Obesity - depression - Psoriatic arthritis (HCC) - Rheumatoid arthritis (HCC) - Systemic lupus erythematosus (HCC) PAST SURGICAL HISTORY Procedure Laterality Date - ANESTH, SECTION 03/22/2014 - APPENDECTOMY - DELIVERY ONLY 01/14/2010 , low transverse - COLPOSCOPY (VAGINOSCOPY) Colposcopy - LAP CHOLECYSTOENTEROSTOMY 06/2011 FAMILY HISTORY Problem Relation Age of Onset - Arthritis Mother rheumatoid - Thyroid Mother - Heart Mother - Lipids Father - Cancer Maternal Grandmother LUNG CANCER - Heart Maternal Grandmother - Thyroid Maternal Grandmother - Heart Paternal Grandmother - Thyroid Maternal Aunt - Thyroid Maternal Aunt Social History Socioeconomic History Marital status: Spouse name: Not on file Number of children: 2 Years of education: 13 Highest education level: Not on file Social Needs Financial resource strain: Not on file Food insecurity - worry: Not on file Food insecurity - inability: Not on file Transportation needs - medical: Not on file Transportation needs - non-medical: Not on file 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 BIOTIN ORAL Take 1 tablet by mouth once daily. DULoxetine (CYMBALTA) 60 mg capsule predniSONE (DELTASONE) 5 mg tablet Take 10 mg by mouth once daily. as necessary azathioprine (IMURAN ORAL) Take by mouth. lidocaine viscous (LIDOCAINE VISCOUS) 2 % solution Gargle an d spit 10-15mLs every 3-4 hours as need for throat discomfort. (Pat ient not taking: Reported on 01/06/2019 ) mupirocin (BACTROBAN) 2 % ointment Apply 1 application to af fected area three times daily. Location: face (Patient not taking: Repor andres on 05/09/2018 ) secukinumab (COSENTYX) 150 mg/mL injection Inject subcutaneo usly one time only. LISINOPRIL ORAL Take by mouth. Norethindrone, Contraceptive, (ORTHO MICRONOR) 0.35 mg table t Take 1 tablet by mouth once daily. (Patient not taking: Reported on 05/09/2018 ) miSOPROStol (CYTOTEC) 200 mcg tablet Take 4 tabs vaginally o ne time. (Patient not taking: Reported on 03/23/2018 ) FOLIC ACID ORAL Take by mouth. Norethindrone, Contraceptive, (NOR-QD) 0.35 mg tablet Take 1 tablet by mouth once daily. (Patient not taking: Reported on 03/23/2018 ) ranitidine (ZANTAC) 150 mg tablet Take 1 tablet by mouth twi ce daily. (Patient not taking: Reported on 03/23/2018 ) Nlglxsnc-Us-Gjl-Fe-FA ( VITAMIN) Tab Take 1 tablet by mouth. No current facility-administered medications for this visit. Allergies As of Date: 01/06/2019 Allergen Noted Reaction CODEINE 01/12/2012 GI Upset DOXYCYCLINE 07/28/2011 Hives PERCOCET [OXYCODONE-ACETAMINOPHEN]07/22/2011 Hives and Anaph ylaxis CLINDAMYCIN 05/09/2018 Rash MORPHINE 10/21/2017 Swelling PENICILLINS 11/28/2009 Rash Fully Assessed 01/06/2019 REVIEW OF SYSTEMS No new c/o EXAM: Wt 284 lb (128.8kg) LMP 01/06/2019 GENERAL: pleasant, female in no apparent distress HEENT: Normocephalic, atraumatic, mucus membranes moist and no lesions ASSESSMENT AND PLAN: sterilization consult r/b/a/p laparoscopic bilateral salpingectomy reviewed w/ pat ient, questions answered and she desires to proceed. Has tried OCPs and mirena in the past. Has completed child b earing Risks, benefits and alternatives to sterilization have been discussed with the patient. She declines reversible options including LARC. She understands sterilization is permanent, irreversible, risks of failure, regret and ectopic. In addition she understands there are taylor rgical risks as well. Her questions were answered to her satisfaction and consent was signed Melvin Fisher MD cnov on 2019-01-06 CNOV Office Visit (WOOB) Normal 01-06-2019 [place] [facility] KENDRA FRANCO ([id number]) 1985 [facility] Date Time Provider Department ([id number]) 01/06/19 1:30 PM MELVIN FISHER WOCASSI During your visit today, we recorded the following informati on about you: Blood pressure Weight Last Period 132/90 128.8 kg 01/06/19 Melvin Fisher MD 01/06/2019 3:42 PM Signed Kendra Franco is a 33 year old female who presents for prob mavis visit for contraception discussion. HPI: 33 YOF who reports that she's now been diagnosed with l upus by her lip cutter and has been started on new medic ation presents for follow-up. She has multiple complaints today and would like to eliminat e her hormonal contraception. She has a history of somewhat heavy menses. S he was on the Mirena in the past and did well with that for the first 2 years but she had some discomfort with intercourse and could feel it at times. In addition, she started to have some symptoms that she thinks might brandon ve been related to the Mirena after was in for a couple years. Between her lupus, and her history of cardiomyopathy, p regnancy would be contraindicated for her and might impose life-threatening issues for her and/or a fetus. She d esires sterilization. PAST MEDICAL HISTORY Diagnosis Date - Abnormal glandular Papanicolaou smear of cervix Abn. Pap smear (cervix) - 11/27/2017 - Cardiomyopathy 01/21/2010 post - Carpal tunnel syndrome - Dysthymic disorder Depression (non-psychotic) - Gestational diabetes mellitus, antepartum 03/16/2014 - Lupus (HCC) - Migraine, unspecified, with intractabl e migraine, so stated, without mention of status migrainosus Migraine - Obesity - depression - Psoriatic arthritis (HCC) - Rheumatoid arthritis (HCC) - Systemic lupus erythematosus (HCC) PAST SURGICAL HISTORY Procedure Laterality Date - ANESTH, SECTION 03/22/2014 - APPENDECTOMY - DELIVERY ONLY 01/14/2010 , low transverse - COLPOSCOPY (VAGINOSCOPY) Colposcopy - LAP CHOLECYSTOENTEROSTOMY 06/2011 FAMILY HISTORY Problem Relation Age of Onset - Arthritis Mother rheumatoid - Thyroid Mother - Heart Mother - Lipids Father - Cancer Maternal Grandmother LUNG CANCER - Heart Maternal Grandmother - Thyroid Maternal Grandmother - Heart Paternal Grandmother - Thyroid Maternal Aunt - Thyroid Maternal Aunt Social History Socioeconomic History Marital status: Spouse name: Not on file Number of children: 2 Years of education: 13 Highest education level: Not on file Social Needs Financial resource strain: Not on file Food insecurity - worry: Not on file Food insecurity - inability: Not on file Transportation needs - medical: Not on file Transportation needs - non-medical: Not on file 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 BIOTIN ORAL Take 1 tablet by mouth once daily. DULoxetine (CYMBALTA) 60 mg capsule predniSONE (DELTASONE) 5 mg tablet Take 10 mg by mouth once daily. as necessary azathioprine (IMURAN ORAL) Take by mouth. lidocaine viscous (LIDOCAINE VISCOUS) 2 % solution Gargle and spit 10-15mLs every 3-4 hours as need for throat discomfort. (Patient not taking: Reported on 01/06/2019 ) mupirocin (BACTROBAN) 2 % ointment Apply 1 appli cation to affected area three times daily. Location: face (Patient not taking: Reported on 05/09/2018 ) secukinumab (COSENTYX) 150 m g/mL injection Inject subcutaneously one time only. LISINOPRIL ORAL Take by mouth. Norethindrone, Contraceptive, (ORTHO JOSEPH RONOR) 0.35 mg tablet Take 1 tablet by mouth once daily. (Patient not taking: Reported on 05/09/2018 ) miSOPROStol (CYTOTEC) 200 mcg tablet Take 4 tabs vaginally one time. (Patient not taking: Reported on 03/23/2018 ) FOLIC ACID ORAL Take by mouth. Norethindrone, Contraceptive, (NOR-QD) 0.35 mg tablet Take 1 tablet by mouth once daily. (Patient not taking: Reported on 03/23/2018 ) ranitidine (ZANTAC) 150 mg tablet Take 1 tablet by mouth twice daily. (Patient not taking: Reported on 03/23/2018 ) Gmfxzyko-Zs-Qpb-Fe-FA ( VITAMIN ) Tab Take 1 tablet by mouth. No current facility-administered medications for this visit. Allergies As of Date: 01/06/2019 Allergen Noted Reaction CODEINE 01/12/2012 GI Upset DOXYCYCLINE 07/28/2011 Hives PERCOCET [OXYCODONE-ACETAMINOPHEN]07/22/2011 Hives and Anaph ylaxis CLINDAMYCIN 05/09/2018 Rash MORPHINE 10/21/2017 Swelling PENICILLINS 11/28/2009 Rash Fully Assessed 01/06/2019 REVIEW OF SYSTEMS No new c/o EXAM: Wt 284 lb (128.8kg) LMP 01/06/2019 GENERAL: pleasant, female in no apparent distress HEENT: Normocephalic, atraumatic, mucus membranes moist and no lesions ASSESSMENT AND PLAN: sterilization consult r/b/a/p laparoscopic bilateral salpingectomy reviewed w/ p atient, questions answered and she desires to proceed. Has tried OCPs and mirena in the past. Has completed child b earing Risks, benefits and alternatives to ster ilization have been discussed with the patient. She declines reversible options including LARC. She understands sterilization is permanent, irreversible, risks of failure, regret and ectopic. In addition she understands there are surgical risks as we ll. Her questions were answered to her satisfaction and consent was signed Melvin Fisher MD Referring Provider: SELF [[id number]] Allergies As of Date: 01/06/2019 Noted Allergy Reaction CODEINE 01/12/2012 8 - GI Upset Comments: States sharp stomach pains DOXYCYCLINE 07/28/2011 4 - Hives PERCOCET (OXYCODONE-ACETAMINOPHEN)07/22/2011 4 - Hives 10 - Anaphylaxis CLINDAMYCIN 05/09/2018 2 - Rash MORPHINE 10/21/2017 7 - Swelling Comments: uvula swelling PENICILLINS 11/28/2009 2 - Rash Date Reviewed: 01/06/2019 Reviewed by: Melvin Fisher - Fully Assessed Reason for Visit: Discussion [813] Cmt: tubal Primary Visit Diagnosis:Encounter for sterilization [Z30.2] Prescriptions as of 01/06/2019 Sig: BELIMUMAB 200 MG/ML SUBCUTANE* Inject subcutaneously. BIOTIN ORAL Take 1 tablet by mouth once d* DULOXETINE 60 MG CAPSULE,KRISTOPHER* PREDNISONE 5 MG TABLET Take 10 mg by mouth once susan* IMURAN ORAL Take by mouth. LISINOPRIL ORAL Take by mouth. FOLIC ACID ORAL Take by mouth. Problem List As Of Date 01/06/2019 Noted Resolved Supervision of Other High-Risk [O09.8*INVALID FOR* 01/27/2010 Routine general medical examination at a [facility] [place]*INVALID FOR* 10/13/2011 Class: Chronic More... Routine gynecological examination [Z01.419] INVALID FOR*09/18 Class: Chronic More... Cardiomyopathy, peripartum, [O90.3] INVALID FOR* More... TRAMAINE (generalized anxiety disorder) [F41.1] INVALID FOR* Impaired glucose tolerance [R73.02] INVALID FOR*04/11/2014 Lichen simplex chronicus [L28.0] INVALID FOR* Dyspareunia [JNS3516] INVALID FOR*04/11/2014 Pelvic cramping [R10.2] INVALID FOR*04/11/2014 Complex ovarian cyst [N83.299] INVALID FOR*04/11/2014 History of [Z98.891] INVALID FOR*04/11/2014 More... History of macrosomia in infant in prior pregna*INVALID FOR* 12/13/2017 More... Obesity, unspecified [E66.9] INVALID FOR*04/11/2014 More... History of depression [Z86.59] INVALID FOR* More... History of bronchitis [Z87.09] INVALID FOR*04/11/2014 More... Frequency of urination [R35.0] INVALID FOR* More... Elevated glucose [R73.09] INVALID FOR*04/11/2014 More... Maternal atypical antibody complicating pregnan*INVALID FOR* 04/11/2014 More... Gestational diabetes mellitus, antepartum [O24.*INVALID FOR* 04/11/2014 Antepartum multigravida of advanced maternal ag*INVALID FOR* 12/13/2017 More... History of delivery, currently pregnan*INVALID FOR* 12/13/2017 More... Obesity in , antepartum [O99.210] INVALID FOR* History of gestational diabetes in prior pregna*INVALID FOR* 12/13/2017 More... History of lupus [M32.9] INVALID FOR* More... Thrombocytopenia affecting (HCC) [O99*INVALID FOR* Medications Discontinued During This Encounter lidocaine viscous (LIDOCAINE VISCOUS* 120 * 0 11/14/201801/06 Sig: Gargle and spit 10-15mLs every 3-4 hours as need for throat discomfort. Patient not taking: Reported on 01/06/2019 Disc: Reason for discontinue is not on file. miSOPROStol (CYTOTEC) 200 mcg tablet 4 ta* 0 12/07/20172018 Sig: Take 4 tabs vaginally one time. Patient not taking: Reported on 03/23/2018 Disc: Reason for discontinue is not on file. mupirocin (BACTROBAN) 2 % ointment 22 g 0 04/18/2018 01/06/2019 Route: TOPICAL Sig: Apply 1 application to affected area three times susan y. Location: face Patient not taking: Reported on 05/09/2018 Disc: Reason for discontinue is not on file. Norethindrone, Contraceptive, (NOR-Q* 1 Pa* 6 05/10/201401/06 Route: ORAL Sig: Take 1 tablet by mouth once daily. Patient not taking: Reported on 03/23/2018 Disc: Reason for discontinue is not on file. Norethindrone, Contraceptive, (ORTHO* 1 Pa* 12 12/13/201712/17 Class: Print RX Route: ORAL Sig: Take 1 tablet by mouth once daily. Patient not taking: Reported on 05/09/2018 Disc: Reason for discontinue is not on file. Dzeavgge-Ij-Mwx-Fe-FA (PREN* 01/06/2019 Class: Historical Med Route: ORAL Sig: Take 1 tablet by mouth. Disc: Reason for discontinue is not on file. ranitidine (ZANTAC) 150 mg tablet 60 t* 1 03/30/2014 9 Route: ORAL Sig: Take 1 tablet by mouth twice daily. Patient not taking: Reported on 03/23/2018 Disc: Reason for discontinue is not on file. secukinumab (COSENTYX) 150 mg/mL inj* 01/06/2019 Class: Historical Med Route: SUBCUTANEOUS Sig: Inject subcutaneously one time only. Disc: Reason for discontinue is not on file. 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 Swabbed initially for strep on 11/14 -negative, culture negative. Still having sore throat. No difficulty sw allowing other than pain. Pain worse at night. + nasal drainage prese nt. + feverish over the weekend, Tmax 102.6. No fever today. Also c/o right wrist and arm pain x 3 days. States it starte d when she went ot reach for something. Pain extends from radial aspect of wrist to forearm. No injury/trauma. Taking motrin, which offers minma l relief. Pain is intermittent, worse with movement. Denies swelling, redness, warmth, numbness/tingling. 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 PAST MEDICAL HISTORY Diagnosis Date - Abnormal glandular Papanicolaou smear of cervix Abn. Pap smear (cervix) - 11/27/2017 - Cardiomyopathy 01/21/2010 post - Carpal tunnel syndrome - Dysthymic disorder Depression (non-psychotic) - Gestational diabetes mellitus, antepartum 03/16/2014 - Lupus (HCC) - Migraine, unspecified, with intractable migraine, so state d, without mention of status migrainosus Migraine - Obesity - depression - Psoriatic arthritis (HCC) - Rheumatoid arthritis (HCC) - Systemic lupus erythematosus (HCC) ALLERGIES Codeine; Doxycycline; Percocet [Oxycodone-Acetamin ophen]; Clindamycin; Morphine; Penicillins MEDICATIONS Current Outpatient Prescriptions: azathioprine (IMURAN ORAL) Take by mouth. lidocaine viscous (LIDOCAINE VISCOUS) 2 % solution Gargle an d spit 10-15mLs every 3-4 hours as need for throat discomfort. BIOTIN ORAL Take 1 tablet by mouth once daily. DULoxetine (CYMBALTA) 60 mg capsule secukinumab (COSENTYX) 150 mg/mL injection Inject subcutaneo usly one time only. predniSONE (DELTASONE) 5 mg tablet Take 5 mg by mouth once d aily. as necessary FOLIC ACID ORAL Take by mouth. mupirocin (BACTROBAN) 2 % ointment Apply 1 application to af fected area three times daily. Location: face (Patient not taking: Repor andres on 05/09/2018 ) LISINOPRIL ORAL Take by mouth. Norethindrone, Contraceptive, (ORTHO MICRONOR) 0.35 mg table t Take 1 tablet by mouth once daily. (Patient not taking: Reported on 05/09/2018 ) miSOPROStol (CYTOTEC) 200 mcg tablet Take 4 tabs vaginally o ne time. (Patient not taking: Reported on 03/23/2018 ) Norethindrone, Contraceptive, (NOR-QD) 0.35 mg tablet Take 1 tablet by mouth once daily. (Patient not taking: Reported on 03/23/2018 ) ranitidine (ZANTAC) 150 mg tablet Take 1 tablet by mouth twi ce daily. (Patient not taking: Reported on 03/23/2018 ) Kniniugl-Xm-Uso-Fe-FA ( VITAMIN) Tab Take 1 tablet by mouth. No current facility-administered medications for this visit. 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 APPEARANCE Well appearing, alert, in no acute distress, well -hydrated, well nourished. EYES PERRLA, conjunctiva and sclera normal. EARS External ears normal, canals clear. TMs normal GORDY NOSE/SINUS Nares normal. Septum midline. Mucosa normal. No d rainage or sinus tenderness. THROAT mild erythema, no exudate. Uvula midline. NECK Supple, + small GORDY anterior cervical adenopathy. No taylor bmandibular TTP or adenopathy present. Mild TTP over left parotid gland, no obvious edema, erythema, or warmth. HEART RRR with normal S1 and S2, no murmurs LUNG clear to auscultation, No wheezing, rhonchi, rales, ret ractions, or stridor. EXTREMITIES normal Wrists, elbows GORDY. Minimal TTP distal ra dius. No snuff box TTP. + mild tinels and Phalen's. ASSESSMENT/PLAN: 1. Sore throat - ICD9: 462, ICD10: J02.9 (primary diagnosis) - Rapid Strep negative in the office today and Throat cultur e pending - Discussed supportive care treatment with fluids, rest and analgesia. - The patient may also use warm salt water gargles, throat l ozenges and/or OTC throat spray as needed and nasal saline gtts and suction prn. - The patient should follow up in 3-5 days if symptoms persi st or worsen - Call back if drooling, increased temperature, symptoms of dehydration and/or still sick in one week - RAPID STREP TEST B/O - GROUP A STREPTOCOCCUS BY PCR - CEFDINIR 300 MG CAPSULE - CBC - MONOTEST, INFECTIOUS MONO F/u with ENT in 3-5 days if not improving, seek care sooner in ER for worsening sx. 2. Right wrist pain - ICD9: 719.43, ICD10: M25.531 Possible strain with irritation of median nerve neuropathy. Recommend cock up wrist splint, ice, rest, motrin F/u in 10-14 days if not improving, sooner if worsening. Ergonomic support while typing. The patient indicates understanding of these issues and agre es with the plan. Reviewed red flags and when to seek care sooner. Ramone Mejia PA-C mono slide test on 2018-11-30 [place] Slide Test Negative Negative Normal 11-30-2018 [facility] ([id number]) Comment: Performed By: #### MONOLX, C BC ####[facility] [place], [place] [phone] group a strep by pcr on 2018-11-30 GAS Specimen Source Throat Swab Normal 11-30-19 19 [facility] ([id number]) Comment: Performed By: #### GASPCR ## ##[address] [phone] Group A Strep PCR Negative for Group A Normal 0 11-30-2018 [facility] Streptococcus by PCR. [place] ([id number]) Comment: Result Comment: This test wa s developed and its performance characteristics determined by [facility]'s Cordell Estrella [facility] [place] ([facility]). It has not been cleared or a pproved by the FDA. [facility] is regulated under CLIA as qualified to perform high-complexity testing. This test is used for clinical purposes. It should not be regarded as inv estigational or for research . Performed By: #### [facility]ASPCR ## ##[place] [id number] [place], [place] [phone] cnpn on 2018-11-30 CNPN Telephone ([facility]) Normal 11-30-2018 [place] KENDRA Vasquez ([id number]) 1985 F [place] Date Time Provider Department ([id number]) 11/30/18 PURA LONDON (TADEO) [facility] During your visit today, we recorded the following informati on about you: Pura London PA-C 11/30/2018 8:43 PM Signed Please call patient and let her know her CBC results a re back. Her platelets are 66, it appears that she has gone up and down with her thrombocytopenia in the past. 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 madrid tomorrow for follow-up. Her white blood cell count also low at 3.0. Penny Camarena Ma 12/01/2018 6:18 AM Signed Pt notified. Yeimy Ashraf Pss 12/01/2018 8:50 AM Signed Pt called and was stating that pt needs to see Dr. Madrid due to her blood work .. Please review message from message below . Pl ease call pt to schedule appt Jacky Madrid DO 12/01/2018 12:01 PM Signed OV with me when good for her. There is n o urgency. Her platelet count when she was in urgent care is significantly better than it was last April. DO Katherine Quiros Benchoff Pss 12/01/2018 1:35 PM Signed Please see new phone note. Allergies As of Date: 11/30/2018 Noted Allergy Reaction CODEINE 01/12/2012 8 - GI Upset Comments: States sharp stomach pains DOXYCYCLINE 07/28/2011 4 - Hives PERCOCET (OXYCODONE-ACETAMINOPHEN)07/22/2011 4 - Hives 10 - Anaphylaxis CLINDAMYCIN 05/09/2018 2 - Rash MORPHINE 10/21/2017 7 - Swelling Comments: uvula swelling PENICILLINS 11/28/2009 2 - Rash Date Reviewed: 11/30/2018 Reviewed by: Brittany Kim LPN - Fully Assessed Reason for Visit: Results [95] Prescriptions as of 11/30/2018 Sig: CEFDINIR 300 MG CAPSULE Take 1 capsule by mouth twice* IMURAN ORAL Take by mouth. LIDOCAINE 2 % MUCOSAL SOLUTION Gargle and spit 10-15mLs ever * BIOTIN ORAL Take 1 tablet by mouth once d* DULOXETINE 60 MG CAPSULE,KRISTOPHER* MUPIROCIN 2 % TOPICAL OINTMENT Apply 1 application to affect * Patient not taking: Reported on 05/09/2018 SECUKINUMAB 150 MG/ML SUBCUTA* Inject subcutaneously one kimberly * PREDNISONE 5 MG TABLET Take 5 mg by mouth once daily* LISINOPRIL ORAL Take by mouth. NORETHINDRONE (CONTRACEPTIVE)* Take 1 tablet by mouth once d * Patient not taking: Reported on 05/09/2018 MISOPROSTOL 200 MCG TABLET Take 4 tabs vaginally one kimberly* Patient not taking: Reported on 03/23/2018 FOLIC ACID ORAL Take by mouth. NORETHINDRONE (CONTRACEPTIVE)* Take 1 tablet by mouth once d * Patient not taking: Reported on 03/23/2018 RANITIDINE 150 MG TABLET Take 1 tablet by mouth twice * Patient not taking: Reported on 03/23/2018 VITAMIN,CALCIUM,MINE* Take 1 tablet by mouth. Problem List As Of Date 11/30/2018 Noted Resolved Supervision of Other High-Risk [O09.8*INVALID FOR* 01/27/2010 Routine general medical examination at a health*INVALID FOR* 10/13/2011 Class: Chronic More... Routine gynecological examination [Z01.419] INVALID FOR*09/18 Class: Chronic More... Cardiomyopathy, peripartum, [O90.3] INVALID FOR* More... TRAMAINE (generalized anxiety disorder) [F41.1] INVALID FOR* Impaired glucose tolerance [R73.02] INVALID FOR*04/11/2014 Lichen simplex chronicus [L28.0] INVALID FOR* Dyspareunia [MIP9210] INVALID FOR*04/11/2014 Pelvic cramping [R10.2] INVALID FOR*04/11/2014 Complex ovarian cyst [N83.299] INVALID FOR*04/11/2014 History of [Z98.891] INVALID FOR*04/11/2014 More... History of macrosomia in infant in prior pregna*INVALID FOR* 12/13/2017 More... Obesity, unspecified [E66.9] INVALID FOR*04/11/2014 More... History of depression [Z86.59] INVALID FOR* More... History of bronchitis [Z87.09] INVALID FOR*04/11/2014 More... Frequency of urination [R35.0] INVALID FOR* More... Elevated glucose [R73.09] INVALID FOR*04/11/2014 More... Maternal atypical antibody complicating pregnan*INVALID FOR* 04/11/2014 More... Gestational diabetes mellitus, antepartum [O24.*INVALID FOR* 04/11/2014 Antepartum multigravida of advanced maternal ag*INVALID FOR* 12/13/2017 More... History of delivery, currently pregnan*INVALID FOR* 12/13/2017 More... Obesity in , antepartum [O99.210] INVALID FOR* History of gestational diabetes in prior pregna*INVALID FOR* 12/13/2017 More... History of lupus [M32.9] INVALID FOR* More... Thrombocytopenia affecting (HCC) [O99*INVALID FOR* Encounter Status:Closed by PENNY CAMARENA MA on 12/01/18 cnov on 2018-11-30 CNOV Office Visit ([facility]) Normal 11-30-[address] [place] [address] KENDRA Vasquez ([id number]) 1985 [facility] Date Time Provider Department ([id number]) 11/30/18 12:15 PM RAMONE MEJIA) [facility] During your visit today, we recorded the following informati on about you: Temperature Pulse Respiration Blood pressure 98.7 degrees 101/minute 16/minute 132/84 Weight 129.5 kg Ramone Mejia PA-C 11/30/2018 3:40 PM Signed 11/30/2018 Patient presents with: Sore Throat: sore throat x 2-3 weeks and right wrist and arm pain x 3 days SUBJECTIVE: This is a 33 year old that is here t gladis for Complaint(s) of sore throat x 2-3 weeks. Swabbed initially for strep on 11/14-nega tive, culture negative. Still having sore throat. No difficult y swallowing other than pain. Pain worse at night. + nasal drainage present. + feverish over the weekend, Tmax 102.6. No fever today. Also c/o right wrist and arm pain x 3 da ys. States it started when she went ot reach for something. Pain extends from radial aspect o f wrist to forearm. No injury/trauma. Taking motrin, which offers minmal relief. Pa in is intermittent, worse with movement. Denies swelling, redness, warmth, numbness/tingling. 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 PAST MEDICAL HISTORY Diagnosis Date - Abnormal glandular Papanicolaou smear of cervix Abn. Pap smear (cervix) - 11/27/2017 - Cardiomyopathy 01/21/2010 post - Carpal tunnel syndrome - Dysthymic disorder Depression (non-psychotic) - Gestational diabetes mellitus, antepartum 03/16/2014 - Lupus (HCC) - Migraine, unspecified, with intractabl e migraine, so stated, without mention of status migrainosus Migraine - Obesity - depression - Psoriatic arthritis (HCC) - Rheumatoid arthritis (HCC) - Systemic lupus erythematosus (HCC) ALLERGIES Codeine; Doxycycline; Percocet [Oxycodone-Acetamin ophen]; Clindamycin; Morphine; Penicillins MEDICATIONS Current Outpatient Prescriptions: azathioprine (IMURAN ORAL) Take by mouth. lidocaine viscous (LIDOCAINE VISCOUS) 2 % solution Gargle and spit 10-15mLs every 3-4 hours as need for throat discomfort. BIOTIN ORAL Take 1 tablet by mouth once daily. DULoxetine (CYMBALTA) 60 mg capsule secukinumab (COSENTYX) 150 m g/mL injection Inject subcutaneously one time only. predniSONE (DELTASONE) 5 mg tablet Take 5 mg by mouth once daily. as necessary FOLIC ACID ORAL Take by mouth. mupirocin (BACTROBAN) 2 % ointment Apply 1 appli cation to affected area three times daily. Location: face (Patient not taking: Reported on 05/09/2018 ) LISINOPRIL ORAL Take by mouth. Norethindrone, Contraceptive, (ORTHO JOSEPH RONOR) 0.35 mg tablet Take 1 tablet by mouth once daily. (Patient not taking: Reported on 05/09/2018 ) miSOPROStol (CYTOTEC) 200 mcg tablet Take 4 tabs vaginally one time. (Patient not taking: Reported on 03/23/2018 ) Norethindrone, Contraceptive, (NOR-QD) 0.35 mg tablet Take 1 tablet by mouth once daily. (Patient not taking: Reported on 03/23/2018 ) ranitidine (ZANTAC) 150 mg tablet Take 1 tablet by mouth twice daily. (Patient not taking: Reported on 03/23/2018 ) Wslgzofp-Bk-Quv-Fe-FA ( VITAMIN ) Tab Take 1 tablet by mouth. No current facility-administered medications for this visit. 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 APPEARANCE Well appearing, alert, in no acute distress, we ll-hydrated, well nourished. EYES PERRLA, conjunctiva and sclera normal. EARS External ears normal, canals clear. TMs normal GORDY NOSE/SINUS Nares normal. Septum midline. Mucosa normal . No drainage or sinus tenderness. THROAT mild erythema, no exudate. Uvula midline. NECK Supple, + small GORDY anterior cervic al adenopathy. No submandibular TTP or adenopathy present. Mild TTP over left parotid gland, no obv ious edema, erythema, or warmth. HEART RRR with normal S1 and S2, no murmurs LUNG clear to auscultation, No wheezing, rhonchi, rales, ret ractions, or stridor. EXTREMITIES normal Wrists, elbows GORDY. M inimal TTP distal radius. No snuff box TTP. + mild tinels and Phalen's. ASSESSMENT/PLAN: 1. Sore throat - ICD9: 462, ICD10: J02.9 (primary diagnosis) - Rapid Strep negative in the office today and Throat cultur e pending - Discussed supportive care treatment with fluids, rest and analgesia. - The patient may also use warm salt john er gargles, throat lozenges and/or OTC throat spray as needed and nasal saline gtts and suction prn . - The patient should follow up in 3-5 days if symptoms persi st or worsen - Call back if drooling, increased tempe rature, symptoms of dehydration and/or still sick in one week - RAPID STREP TEST B/O - GROUP A STREPTOCOCCUS BY PCR - CEFDINIR 300 MG CAPSULE - CBC - MONOTEST, INFECTIOUS MONO F/u with ENT in 3-5 days if not improving, seek care sooner in ER for worsening sx. 2. Right wrist pain - ICD9: 719.43, ICD10: M25.531 Possible strain with irritation of median nerve neuropathy. Recommend cock up wrist splint, ice, rest, motrin F/u in 10-14 days if not improving, sooner if worsening. Ergonomic support while typing. The patient indicates understanding of these iss ues and agrees with the plan. Reviewed red flags and when to seek care sooner. Ramone Mejia PA-C Referring Provider: SELF [200] Allergies As of Date: 11/30/2018 Noted Allergy Reaction CODEINE 01/12/2012 8 - GI Upset Comments: States sharp stomach pains DOXYCYCLINE 07/28/2011 4 - Hives PERCOCET (OXYCODONE-ACETAMINOPHEN)07/22/2011 4 - Hives 10 - Anaphylaxis CLINDAMYCIN 05/09/2018 2 - Rash MORPHINE 10/21/2017 7 - Swelling Comments: uvula swelling PENICILLINS 11/28/2009 2 - Rash Date Reviewed: 11/30/2018 Reviewed by: Brittany Kim LPN - Fully Assessed Reason for Visit: Sore Throat [200] Cmt: sore throat x 2-3 weeks and right w rist and arm pain x 3 days Primary Visit Diagnosis:Sore throat [J02.9] Other Visit Diagnosis:Right wrist pain [M25.531] Order(s):RAPID STREP TEST B/O [9103318] Order #: [id number] GROUP A STREPTOCOCCUS BY PCR [SQGASPCR] Order #: [id number] cefdinir (OMNICEF) 300 mg capsuleTake 1 capsule by mouth twi ce daily for 10 days.Disp: 20 capsuleRfl: 0 CBC [SQCBC] Order #: [id number] FUTURE MONOTEST, INFECTIOUS MONO [SQMONOLX] Order #: [id number] FUT URE Prescriptions as of 11/30/2018 Sig: IMURAN ORAL Take by mouth. LIDOCAINE 2 % MUCOSAL SOLUTION Gargle and spit 10-15mLs ever * BIOTIN ORAL Take 1 tablet by mouth once d* DULOXETINE 60 MG CAPSULE,KRISTOPHER* SECUKINUMAB 150 MG/ML SUBCUTA* Inject subcutaneously one kimberly * PREDNISONE 5 MG TABLET Take 5 mg by mouth once daily* FOLIC ACID ORAL Take by mouth. CEFDINIR 300 MG CAPSULE Take 1 capsule by mouth twice* MUPIROCIN 2 % TOPICAL OINTMENT Apply 1 application to affect * Patient not taking: Reported on 05/09/2018 LISINOPRIL ORAL Take by mouth. NORETHINDRONE (CONTRACEPTIVE)* Take 1 tablet by mouth once d * Patient not taking: Reported on 05/09/2018 MISOPROSTOL 200 MCG TABLET Take 4 tabs vaginally one kimberly* Patient not taking: Reported on 03/23/2018 NORETHINDRONE (CONTRACEPTIVE)* Take 1 tablet by mouth once d * Patient not taking: Reported on 03/23/2018 RANITIDINE 150 MG TABLET Take 1 tablet by mouth twice * Patient not taking: Reported on 03/23/2018 VITAMIN,CALCIUM,MINE* Take 1 tablet by mouth. Problem List As Of Date 11/30/2018 Noted Resolved Supervision of Other High-Risk [O09.8*INVALID FOR* 01/27/2010 Routine general medical examination at a [facility] [place]*INVALID FOR* 10/13/2011 Class: Chronic More... Routine gynecological examination [Z01.419] INVALID FOR*09/18 Class: Chronic More... Cardiomyopathy, peripartum, [O90.3] INVALID FOR* More... TRAMAINE (generalized anxiety disorder) [F41.1] INVALID FOR* Impaired glucose tolerance [R73.02] INVALID FOR*04/11/2014 Lichen simplex chronicus [L28.0] INVALID FOR* Dyspareunia [UNZ9770] INVALID FOR*04/11/2014 Pelvic cramping [R10.2] INVALID FOR*04/11/2014 Complex ovarian cyst [N83.299] INVALID FOR*04/11/2014 History of [Z98.891] INVALID FOR*04/11/2014 More... History of macrosomia in in prior pregna*INVALID FOR* 12/13/2017 More... Obesity, unspecified [E66.9] INVALID FOR*04/11/2014 More... History of depression [Z86.59] INVALID FOR* More... History of bronchitis [Z87.09] INVALID FOR*04/11/2014 More... Frequency of urination [R35.0] INVALID FOR* More... Elevated glucose [R73.09] INVALID FOR*04/11/2014 More... Maternal atypical antibody complicating pregnan*INVALID FOR* 04/11/2014 More... Gestational diabetes mellitus, antepartum [O24.*INVALID FOR* 04/11/2014 Antepartum multigravida of advanced maternal ag*INVALID FOR* 12/13/2017 More... History of delivery, currently pregnan*INVALID FOR* 12/13/2017 More... Obesity in , antepartum [O99.210] INVALID FOR* History of gestational diabetes in prior pregna*INVALID FOR* 12/13/2017 More... History of lupus [M32.9] INVALID FOR* More... Thrombocytopenia affecting (HCC) [O99*INVALID FOR* Prescriptions ordered this encounter Disp Refills Start End CEFDINIR 300 MG CAPSULE 20 c* 0 11/30/2018 12/10/2018 Route: ORAL Sig: Take 1 capsule by mouth twice daily for 10 days. Encounter Status:Closed by RAMONE MEJIA PA-C on 9 cbc on 2018-11-30 Absolute nRBC <0.01 <0.01 Normal 11-30-2018 [facility] ([id number]) Comment: Performed By: #### MATTHEWX C BC ####[facility] [place], [place] [id number]- [phone] Erythrocyte distribution 12.6 11.5-15.0 % Normal 11-30 [facility] width Ratio (RBC) Cl robin ([id number]) Comment: Performed By: #### MATTHEWX C BC ####[facility] [place], [place] [phone]- [phone] Hematocrit Volume Fraction 35.4 36.0-46.0 % Low [facility] (Bld) ([id number]) Comment: Performed By: #### MONOLX, C BC ####[place] [phone] Hemoglobin mass conc 11.7 11.5-15.5 g/dL Normal 9 [facility] (Bld) [place] ([id number]) Comment: Performed By: #### MONOLX, C BC ####[place] [phone] MCH Entitic mass (RBC) 30.2 26.0-34.0 pG Normal 019 [facility] ([id number]) Comment: Performed By: #### MONOLX, C BC ####[place] [phone] MCHC mass conc (RBC) 33.1 30.5-36.0 g/dL Normal 9 [facility] ([id number]) Comment: Performed By: #### MONOLX, C BC ####[place] [phone] MCV Entitic volume 91.5 80.0-100.0 fL Normal 11-30-2018 [facility] (RBC) [place] ([id number]) Comment: Performed By: #### MONOLX, C BC ####[place] [phone] Platelet mean volume 14.0 9.0-12.7 fL High 9 [facility] Entitic volume (Bld) ([id number]) Comment: Performed By: #### MONOLX, C BC ####[place] [phone] Platelets #/vol (Bld) 66 150-400 k/uL Low 11-30-19 19 [facility] ([id number]) Comment: Result Comment: Result check ed and verified No clot detected. Performed By: #### MONOLX, C BC ####[facility] [address] [place], [place] [phone] RBC #/vol (Bld) 3.87 3.90-5.20 m/uL Low 11-30-2018 [facility] ([id number]) Comment: Performed By: #### MONOLX, C BC ####[facility] [place], [place] [phone]- [phone] WBC #/vol (Bld) 3.00 3.70-11.00 k/uL Low 11-30-2018 [facility] ([id number]) Comment: Performed By: #### MONOLX, C BC ####[place] [id number] [place], [place] [phone]- [phone] progress on 2018-10 Protein mass HNO ID: [id number] Normal 11-14-19 [facility] Author: Iris Huang [place] Service: (none) ([phone]) Author Type: Nurse Practitioner Type: Progress Notes Filed: 11/14/2018 1:00 PM Note Text: Subjective HPI Pt presents with c/o sore throat x 4 days. Uvula has been swollen x 2 days. Today developed mild nasal congestion. Tactile fevers on day 1-2. Has not taken any OTC medications. No known exposure to sick contacts. Review of Systems Constitutional: Negative for chills and fever. HENT: Positive for congestion and sore throat. Negative for ear discharge, ear pain, sinus pain and tinnitus. Respiratory: Negative for cough, sputum production, shortnes s of breath and wheezing. Cardiovascular: Negative for chest pain. Skin: Negative for rash. Neurological: Negative for headaches. Objective Physical Exam Constitutional: She is oriented to person, place, and time a nd well-developed, well-nourished, and in no distress. No distr ess. HENT: Head: Normocephalic. Right Ear: Hearing, tympanic membrane, external ear and ear canal normal. Left Ear: Hearing, tympanic membrane, external ear and ear c anal normal. Nose: Nose normal. Right sinus exhibits no maxillary sinus t enderness and no frontal sinus tenderness. Left sinus exhibits no maxillar y sinus tenderness and no frontal sinus tenderness. Mouth/Throat: Uvula is midline, oropharynx is clear and mois t and mucous membranes are normal. No oropharyngeal exudate, posterior or opharyngeal edema, posterior oropharyngeal erythema or tonsillar abscess es. Eyes: Pupils are equal, round, and reactive to light. Conjun ctivae are normal. Right eye exhibits no discharge. Left eye exhibits n o discharge. Neck: Neck supple. Cardiovascular: Normal rate, regular rhythm and normal heart sounds. Exam reveals no gallop and no friction rub. No murmur heard. Pulmonary/Chest: Effort normal and breath sounds normal. No accessory muscle usage. No tachypnea. No respiratory distress. She has no decreased breath sounds (CTA, good air movement throughout, no cough n oted during exam.). She has no wheezes. She has no rhonchi. She has no r ales. Lymphadenopathy: She has no cervical adenopathy. Neurological: She is alert and oriented to person, place, an d time. Skin: Skin is warm. She is not diaphoretic. BP 124/84 Pulse 112 Temp 37 ?C (98.6 ?F) (Tympanic) Re sp 16 Wt 129.5 kg (285 lb 6.4 oz) SpO2 97% BMI 47.86 kg/m? .Patient presents with: sore throat, sinus pressure and fever: x 4 days PAST MEDICAL HISTORY Diagnosis Date - Abnormal glandular Papanicolaou smear of cervix Abn. Pap smear (cervix) - 11/27/2017 - Cardiomyopathy 01/21/2010 post - Carpal tunnel syndrome - Dysthymic disorder Depression (non-psychotic) - Gestational diabetes mellitus, antepartum 03/16/2014 - Lupus (HCC) - Migraine, unspecified, with intractable migraine, so state d, without mention of status migrainosus Migraine - Obesity - depression - Psoriatic arthritis (HCC) - Rheumatoid arthritis (HCC) - Systemic lupus erythematosus (HCC) PAST SURGICAL HISTORY Procedure Laterality Date - ANESTH, SECTION 03/22/2014 - APPENDECTOMY - DELIVERY ONLY 01/14/2010 , low transverse - COLPOSCOPY (VAGINOSCOPY) Colposcopy - LAP CHOLECYSTOENTEROSTOMY 06/2011 ALLERGIES Codeine; Doxycycline; Percocet [Oxycodone-Acetamin ophen]; Clindamycin; Morphine; Penicillins MEDICATIONS azathioprine (IMURAN ORAL) Take by mouth. BIOTIN ORAL Take 1 tablet by mouth once daily. DULoxetine (CYMBALTA) 60 mg capsule predniSONE (DELTASONE) 5 mg tablet Take 5 mg by mouth once d aily. as necessary predniSONE (DELTASONE) 20 mg tablet Take 2 tablets by mouth once daily for 5 days. Take daily with food. lidocaine viscous (LIDOCAINE VISCOUS) 2 % solution Gargle an d spit 10-15mLs every 3-4 hours as need for throat discomfort. mupirocin (BACTROBAN) 2 % ointment Apply 1 application to af fected area three times daily. Location: face secukinumab (COSENTYX) 150 mg/mL injection Inject subcutaneo usly one time only. LISINOPRIL ORAL Take by mouth. Norethindrone, Contraceptive, (ORTHO MICRONOR) 0.35 mg table t Take 1 tablet by mouth once daily. miSOPROStol (CYTOTEC) 200 mcg tablet Take 4 tabs vaginally o ne time. FOLIC ACID ORAL Take by mouth. Norethindrone, Contraceptive, (NOR-QD) 0.35 mg tablet Take 1 tablet by mouth once daily. ranitidine (ZANTAC) 150 mg tablet Take 1 tablet by mouth twi ce daily. Ywdmdpqv-Vt-Kpq-Fe-FA ( VITAMIN) Tab Take 1 tablet by mouth. FAMILY HISTORY Problem Relation Age of Onset - Arthritis Mother rheumatoid - Thyroid Mother - Heart Mother - Lipids Father - Cancer Maternal Grandmother LUNG CANCER - Heart Maternal Grandmother - Thyroid Maternal Grandmother - Heart Paternal Grandmother - Thyroid Maternal Aunt - Thyroid Maternal Aunt Social History Substance Use Topics - Smoking status: Never Smoker - Smokeless tobacco: Never Used - Alcohol use Yes Comment: social alcohol use, not while ASSESSMENT/PLAN: 1. Sore throat - ICD9: 462, ICD10: J02.9 - Rapid Strep negative in the office today and Throat cultur e pending - Discussed supportive care treatment with fluids, rest and analgesia. - Contagious dz precautions discussed- including considered contagious until on antibiotics for 24 hours - The patient should follow up in 3-5 days if symptoms persi st or worsen - Call back if drooling, increased temperature, symptoms of dehydration and/or still sick in one week - IMURAN ORAL - RAPID STREP TEST B/O - GROUP A STREPTOCOCCUS BY PCR - PREDNISONE 20 MG TABLET - LIDOCAINE 2 % MUCOSAL SOLUTION The patient is instructed to return or seek emergency treatm ent if symptoms become worse or with any acute change in condition. The patient verbalizes understanding and is in agreement wit h plan of care. Iris Huang CNP group a strep by pcr on 2018-11-14 GAS Specimen Source Throat Swab Normal 11-14-19 [facility] ([id number]) Comment: Performed By: #### GASPCR ## ##[facility] [address] [place], [place] [phone] Group A Strep PCR Negative for Group A Normal 0 11-14-2018 [facility] Streptococcus by PCR. [place] ([id number]) Comment: Result Comment: This test wa s developed and its performance characteristics determined by [facility]'s [facility] [place] [facility] It has not been cleared or a pproved by the FDA. [facility] is regulated under CLIA as qualified to perform high-complexity testing. This test is used for clinical purposes. It should not be regarded as inv estigational or for research . Performed By: #### GASPCR ## ##[facility] [address] [place], [place] [id number]- [phone] cnov on 2018-11-14 CNOV Office Visit (UCWSTR) Normal 11-14-19 [place] KENDRA Vasquez ([id number]) 1985 F [place] Date Time Provider Department ([id number]) 11/14/18 12:15 PM IRIS HUANG [facility] During your visit today, we recorded the following informati on about you: Temperature Pulse Respiration Blood pressure 98.6 degrees 112/minute 16/minute 124/84 Weight 129.5 kg Iris Huang APRN.MOISE 11/14/2018 1:00 PM Signed Subjective HPI Pt presents with c/o sore throat x 4 days. Uvula has been swollen x 2 days. Today developed mild nasal congestion. Tactile fevers on day 1-2. Has not taken any OTC medications. No known exposure to sick contacts. Review of Systems Constitutional: Negative for chills and fever. HENT: Positive for congestion and sore t hroat. Negative for ear discharge, ear pain, sinus pain and tinnitus. Respiratory: Negative for cough, sputum production, shortn ess of breath and wheezing. Cardiovascular: Negative for chest pain. Skin: Negative for rash. Neurological: Negative for headaches. Objective Physical Exam Constitutional: She is oriented to perso n, place, and time and well-developed, well-nourished, and in no distress. No distress. HENT: Head: Normocephalic. Right Ear: Hearing, tympanic membrane, external ear and ear canal normal. Left Ear: Hearing, tympanic membrane, external ear and ear c anal normal. Nose: Nose normal. Right sinus exhibits no maxillary s inus tenderness and no frontal sinus tenderness. Le ft sinus exhibits no maxillary sinus tenderness and no frontal sinus tenderness. Mouth/Throat: Uvula is midline, oropharynx is clear and mois t and mucous membranes are normal. No oropharyngeal e xudate, posterior oropharyngeal edema, posterior oropharyngeal erythema or tonsillar abscesses. Eyes: Pupils are equal, round, and react karina to light. Conjunctivae are normal. Right eye exhibits no discharge. Left eye exhibits no discha rge. Neck: Neck supple. Cardiovascular: Normal rate, regular rhythm and normal heart sounds. Exam reveals no gallop and no friction rub. No murmur heard. Pulmonary/Chest: Effort normal and breath sounds macie l. No accessory muscle usage. No tachypnea. No respiratory distress. She has no dec reased breath sounds (CTA, good air movement throughout, no cough no andres during exam.). She has no wheezes. She has no rhonchi. She has no rales. Lymphadenopathy: She has no cervical adenopathy. Neurological: She is alert and oriented to person, place, an d time. Skin: Skin is warm. She is not diaphoretic. BP 124/84 Pulse 112 Temp 37 ?C (98.6 ?F) (Tympanic) Re sp 16 Wt 129.5 kg (285 lb 6.4 oz) SpO2 97% BMI 47.86 kg/m? .Patient presents with: sore throat, sinus pressure and fever: x 4 days PAST MEDICAL HISTORY Diagnosis Date - Abnormal glandular Papanicolaou smear of cervix Abn. Pap smear (cervix) - 11/27/2017 - Cardiomyopathy 01/21/2010 post - Carpal tunnel syndrome - Dysthymic disorder Depression (non-psychotic) - Gestational diabetes mellitus, antepartum 03/16/2014 - Lupus (HCC) - Migraine, unspecified, with intractabl e migraine, so stated, without mention of status migrainosus Migraine - Obesity - depression - Psoriatic arthritis (HCC) - Rheumatoid arthritis (HCC) - Systemic lupus erythematosus (HCC) PAST SURGICAL HISTORY Procedure Laterality Date - ANESTH, SECTION 03/22/2014 - APPENDECTOMY - DELIVERY ONLY 01/14/2010 , low transverse - COLPOSCOPY (VAGINOSCOPY) Colposcopy - LAP CHOLECYSTOENTEROSTOMY 06/2011 ALLERGIES Codeine; Doxycycline; Percocet [Oxycodone-Acetamin ophen]; Clindamycin; Morphine; Penicillins MEDICATIONS azathioprine (IMURAN ORAL) Take by mouth. BIOTIN ORAL Take 1 tablet by mouth once daily. DULoxetine (CYMBALTA) 60 mg capsule predniSONE (DELTASONE) 5 mg tablet Take 5 mg by mouth once daily. as necessary predniSONE (DELTASONE) 20 mg tablet Take 2 tablets by mouth once daily for 5 days. Take daily with food. lidocaine viscous (LIDOCAINE VISCOUS) 2 % solution Gargle and spit 10-15mLs every 3-4 hours as need for throat discomfort. mupirocin (BACTROBAN) 2 % ointment Apply 1 appli cation to affected area three times daily. Location: face secukinumab (COSENTYX) 150 m g/mL injection Inject subcutaneously one time only. LISINOPRIL ORAL Take by mouth. Norethindrone, Contraceptive, (ORTHO JOSEPH RONOR) 0.35 mg tablet Take 1 tablet by mouth once daily. miSOPROStol (CYTOTEC) 200 mcg tablet Take 4 tabs vaginally o ne time. FOLIC ACID ORAL Take by mouth. Norethindrone, Contraceptive, (NOR-QD) 0.35 mg tablet Take 1 tablet by mouth once daily. ranitidine (ZANTAC) 150 mg tablet Take 1 tablet by mouth twi ce daily. Ndfienxf-Ff-Luw-Fe-FA ( VITAMIN ) Tab Take 1 tablet by mouth. FAMILY HISTORY Problem Relation Age of Onset - Arthritis Mother rheumatoid - Thyroid Mother - Heart Mother - Lipids Father - Cancer Maternal Grandmother LUNG CANCER - Heart Maternal Grandmother - Thyroid Maternal Grandmother - Heart Paternal Grandmother - Thyroid Maternal Aunt - Thyroid Maternal Aunt Social History Substance Use Topics - Smoking status: Never Smoker - Smokeless tobacco: Never Used - Alcohol use Yes Comment: social alcohol use, not while ASSESSMENT/PLAN: 1. Sore throat - ICD9: 462, ICD10: J02.9 - Rapid Strep negative in the office today and Throat cultur e pending - Discussed supportive care treatment with fluids, rest and analgesia. - Contagious dz precautions discussed- including consi dered contagious until on antibiotics for 24 hours - The patient should follow up in 3-5 days if symptoms persi st or worsen - Call back if drooling, increased tempe rature, symptoms of dehydration and/or still sick in one week - IMURAN ORAL - RAPID STREP TEST B/O - GROUP A STREPTOCOCCUS BY PCR - PREDNISONE 20 MG TABLET - LIDOCAINE 2 % MUCOSAL SOLUTION The patient is instructed to return or seek emergency raheem tment if symptoms become worse or with any acute change in condition. The patient verbalizes understanding and is in agreement w ith plan of care. Iris Huang CNP Referring Provider: SELF [200] Allergies As of Date: 11/14/2018 Noted Allergy Reaction CODEINE 01/12/2012 8 - GI Upset Comments: States sharp stomach pains DOXYCYCLINE 07/28/2011 4 - Hives PERCOCET (OXYCODONE-ACETAMINOPHEN)07/22/2011 4 - Hives 10 - Anaphylaxis CLINDAMYCIN 05/09/2018 2 - Rash MORPHINE 10/21/2017 7 - Swelling Comments: uvula swelling PENICILLINS 11/28/2009 2 - Rash Date Reviewed: 11/14/2018 Reviewed by: Brittany Kim LPN - Fully Assessed Reason for Visit: sore throat, sinus pressure and fever [Other] Cmt: x 4 days Primary Visit Diagnosis:Sore throat [J02.9] Order(s):RAPID STREP TEST B/O [[id number]] Order #: [id number] GROUP A STREPTOCOCCUS BY PCR [SQGASPCR] Order #: [id number] predniSONE (DELTASONE) 20 mg tabletTake 2 tablets by mouth o nce daily for 5 days. Take daily with food.Disp: 10 tabletRfl: 0 lidocaine viscous (LIDOCAINE VISCOUS) 2 % solutionGargle and spit 10-15mLs every 3-4 hours as need for throat discomfort.Disp: 120 mLRfl: 0 Prescriptions as of 11/14/2018 Sig: IMURAN ORAL Take by mouth. BIOTIN ORAL Take 1 tablet by mouth once d* DULOXETINE 60 MG CAPSULE,KRISTOPHER* PREDNISONE 5 MG TABLET Take 5 mg by mouth once daily* PREDNISONE 20 MG TABLET Take 2 tablets by mouth once * LIDOCAINE 2 % MUCOSAL SOLUTION Gargle and spit 10-15mLs ever * MUPIROCIN 2 % TOPICAL OINTMENT Apply 1 application to affect * Patient not taking: Reported on 05/09/2018 SECUKINUMAB 150 MG/ML SUBCUTA* Inject subcutaneously one kimberly * LISINOPRIL ORAL Take by mouth. NORETHINDRONE (CONTRACEPTIVE)* Take 1 tablet by mouth once d * Patient not taking: Reported on 05/09/2018 MISOPROSTOL 200 MCG TABLET Take 4 tabs vaginally one kimberly* Patient not taking: Reported on 03/23/2018 FOLIC ACID ORAL Take by mouth. NORETHINDRONE (CONTRACEPTIVE)* Take 1 tablet by mouth once d * Patient not taking: Reported on 03/23/2018 RANITIDINE 150 MG TABLET Take 1 tablet by mouth twice * Patient not taking: Reported on 03/23/2018 VITAMIN,CALCIUM,MINE* Take 1 tablet by mouth. Problem List As Of Date 11/14/2018 Noted Resolved Supervision of Other High-Risk [O09.8*INVALID FOR* 01/27/2010 Routine general medical examination at a health*INVALID FOR* 10/13/2011 Class: Chronic More... Routine gynecological examination [Z01.419] INVALID FOR*09/18 Class: Chronic More... Cardiomyopathy, peripartum, [O90.3] INVALID FOR* More... TRAMAINE (generalized anxiety disorder) [F41.1] INVALID FOR* Impaired glucose tolerance [R73.02] INVALID FOR*04/11/2014 Lichen simplex chronicus [L28.0] INVALID FOR* Dyspareunia [FOO0397] INVALID FOR*04/11/2014 Pelvic cramping [R10.2] INVALID FOR*04/11/2014 Complex ovarian cyst [N83.299] INVALID FOR*04/11/2014 History of [Z98.891] INVALID FOR*04/11/2014 More... History of macrosomia in in prior pregna*INVALID FOR* 12/13/2017 More... Obesity, unspecified [E66.9] INVALID FOR*04/11/2014 More... History of depression [Z86.59] INVALID FOR* More... History of bronchitis [Z87.09] INVALID FOR*04/11/2014 More... Frequency of urination [R35.0] INVALID FOR* More... Elevated glucose [R73.09] INVALID FOR*04/11/2014 More... Maternal atypical antibody complicating pregnan*INVALID FOR* 04/11/2014 More... Gestational diabetes mellitus, antepartum [O24.*INVALID FOR* 04/11/2014 Antepartum multigravida of advanced maternal ag*INVALID FOR* 12/13/2017 More... History of delivery, currently pregnan*INVALID FOR* 12/13/2017 More... Obesity in , antepartum [O99.210] INVALID FOR* History of gestational diabetes in prior pregna*INVALID FOR* 12/13/2017 More... History of lupus [M32.9] INVALID FOR* More... Thrombocytopenia affecting (HCC) [O99*INVALID FOR* Prescriptions ordered this encounter Disp Refills Start End PREDNISONE 20 MG TABLET 10 t* 0 11/14/2018 11/19/2018 Route: ORAL Sig: Take 2 tablets by mouth once daily for 5 days. Take javi ly with food. LIDOCAINE 2 % MUCOSAL SOLUTION 120 * 0 11/14/2018 Sig: Gargle and spit 10-15mLs every 3-4 hours as need for throat discomfort. Letter Text Iris Huang, SCHOOL RESOURCE OFFICER.[facility] Urgent Care [address] [facility] [address] Dept: [phone] 11/14/2018 Kendra Franco [address] [facility] [address] To Whom it May Concern: This is to certify that Kendra Franco was seen at our [facility] for medical care. Sincerely: Iris Huang APRN.MENDING CARRIER Encounter Status:Closed by IRIS HUANG CNP on anti dna ds on 2018 Anti-DNA (DS) Ab Qnt >300 0-[address] [place] [address] ([id number]) Comment: Order Comment: Performed at: [address] [id number] Director: Narinder Mcintyre PhD, Phone: [phone] Result Comment: Negative <5 Equivocal 5 - 9 Positive >9 Performed By: #### CRPR #### [facility] [address] [place] [address] 51831 c4 complement on 05-11-26 C4 Complement 5 14-44 mg/dL Low 11-13-2018 [facility] (00792) Comment: Order Comment: Performed at: [address] [id number] Director: Narinder Mcintyre PhD, Phone: [phone] Performed By: #### ESR #### [facility] [address] [place] [address] 43234 c3 complement on 05-11-26 C3 Complement 47 82-167 mg/dL Low 11-13-2018 [facility] (56713) Comment: Order Comment: Performed at: [employer] [id number] Director: Narinder Mcintyre PhD, Phone: [phone] Performed By: #### ESR #### [facility] [address] [place] [address] 54607 comprehensive metabolic panel on 2018-11-11 Albumin mass conc 2.6 3.4-5.0 gm/dL Low 11-11-2018 [facility] (55486) Comment: Performed By: #### ESR #### [facility] [address] [place] [address] 22210 ALP enzyme act/vol 66 45-117 U/L Normal 11-11-2018 [facility] (60121) Comment: Performed By: #### ESR #### [facility] [place] [facility] [address] [place] [address] 94837 ALT enzyme act/vol 22 12-78 U/L Normal 11-11-2018 [facility] (78502) Comment: Performed By: #### ESR #### [facility] [place] [facility] [address] [place] [address] 27546 Anion gap molar conc 7 5-10 mmol/L Normal [address] [place] [address] (01040) Comment: Performed By: #### ESR #### [facility] [place] [facility] [address], [place] [address] AST enzyme act/vol 27 15-37 U/L Normal 11-11-2018 [facility] (61154) Comment: Performed By: #### ESR #### [facility] [address] [place] [address] 56883 Bili, Total 0.4 0.2-1.0 mg/dL Normal 11-11-2018 [facility] (14703) Comment: Performed By: #### ESR #### [facility] [address] [place] [address] 28767 Calcium mass conc 8.0 8.5-10.1 mg/dL Low 11-11-2018 [facility] (35701) Comment: Performed By: #### ESR #### [facility] [place] [facility] [address] [place] [address] 23241 Chloride molar conc 105 98-107 mmol/L Normal 11-11-2018 [facility] (07659) Comment: Performed By: #### ESR #### [facility] [place] [facility] [address] [place] [address] 18260 CO2 molar conc 27 21-32 mmol/L Normal 11-11-2018 [facility] (46084) Comment: Performed By: #### ESR #### [facility] [place] [facility] [address] [place] [address] 68680 Creatinine mass conc 0.47 0.60-1.30 mg/dL Low [address] [place] [address] (62692) Comment: Performed By: #### ESR #### [facility] [address] [place] [address] 57621 eGFR -Amer >60 >=60 Normal 11-11-2018 [facility] (45939) Comment: Performed By: #### ESR #### [facility] [address] [place] [address] 28338 GFR/1.73 sq M >60 >=60 mL/min/{1.73_m2} Normal [address] [place] [address] predicted among Hosp ital (01816) non-blacks MDRD vol rate/area (S/P/Bld) Comment: Performed By: #### ESR #### [facility] [address] [place] [address] 30765 Glucose mass conc 137 74-106 mg/dL High 11-11-2018 [facility] (65556) Comment: Performed By: #### ESR #### [facility] [address] [place] [address] 18858 Potassium molar conc 4.2 3.5-5.1 mmol/L Normal [address] [place] [address] (56482) Comment: Performed By: #### ESR #### [facility] [address] [place] [address] 63153 Protein mass conc 6.4 6.4-8.2 gm/dL Normal 11-11-2018 [facility] (39369) Comment: Performed By: #### ESR #### [facility] [address] [place] [address] 46840 Sodium molar conc 139 136-145 mmol/L Normal 11-11-2018 [facility] (95097) Comment: Performed By: #### ESR #### [facility] [address] [place] [address] 49354 Urea nitrogen mass conc 12 7-18 mg/dL Normal 2018 [facility] (85360) Comment: Performed By: #### ESR #### [facility] [address] [place] [address] 85827 cbc with diff on 05-11-24 Basophils #/vol (Bld) 0.0 0.0-0.1 x(10)3/cumm Normal 2018 [facility] ( 90802) Comment: Performed By: #### ESR #### [facility] [place] [facility] [address] [place], [place] [address] Basophils/100 WBC (Bld) 0.4 0.0-1.0 % Normal 2018 [facility] (64696) Comment: Performed By: #### ESR #### [facility] [address] [place], [place] [address] Eosinophils #/vol (Bld) 0.0 0.0-0.4 x(10)3/cumm Normal 10-19 [facility] ( 92647) Comment: Performed By: #### ESR #### [facility] [address] [place], [place] [address] Eosinophils/100 WBC (d) 0.1 0.0-6.1 % Normal 10-19 [facility] (69099) Comment: Performed By: #### ESR #### [facility] [address] [place], [place] [address] Erythrocyte distribution 13.2 11.1-15.3 % Normal 11-11 [facility] width Ratio (RBC) Ho spital (13889) Comment: Performed By: #### ESR #### [facility] [address] [place], [place] [address] Hematocrit Volume Fraction 36.4 34.6-45.0 % Normal [facility] ([facility]) (62360) Comment: Performed By: #### ESR #### [facility] [address] [place] [address] 88649 Hemoglobin mass conc 12.1 11.5-15.5 gm/dL Normal [facility] ([facility] ( 96961) Comment: Performed By: #### ESR #### [facility] [address] [place] [address] 29747 Lymphocytes #/vol (Bld) 0.2 0.8-2.9 x(10)3/cumm Low 10-19 [facility] ( 11759) Comment: Performed By: #### ESR #### [facility] [address] [place] [address] 07245 Lymphocytes/100 WBC (Bld) 5.9 12.2-42.6 % Low 10-19 [facility] (51783) Comment: Performed By: #### ESR #### [facility] [address] [place] [address] 03474 MCH Entitic mass (RBC) 29.7 27.2-33.6 pg Normal 019 [facility] (30750) Comment: Performed By: #### ESR #### [facility] [address] [place], [place] [address] MCHC mass conc (RBC) 33.2 32.9-35.3 gm/dL Normal 9 [facility] (59197) Comment: Performed By: #### ESR #### [facility] [address] [place] [address] 19554 MCV Entitic volume (RBC) 89.3 81.3-96.7 fL Normal 11-11 [facility] (14884) Comment: Performed By: #### ESR #### [facility] [address] [place] [address] 33109 Monocytes #/vol (Bld) 0.2 0.2-0.8 x(10)3/cumm Normal 2018 [facility] ( 04729) Comment: Performed By: #### ESR #### [facility] [address] [place] [address] 96232 Monocytes/100 WBC (Bld) 6.2 3.3-11.6 % Normal 2018 [facility] (90855) Comment: Performed By: #### ESR #### [facility] [address] [place] [address] 55339 Neutrophils #/vol (Bld) 3.1 1.3-7.4 x(10)3/cumm Normal - [facility] ( 65920) Comment: Performed By: #### ESR #### [facility] [address] [place] [address] 03938 Platelet mean volume 11.3 6.4-10.0 fL High 9 [facility] Entitic volume (Bld) (03982) Comment: Performed By: #### ESR #### [facility] [place] [facility] [address] [place] [address] 17581 Platelets #/vol (Bld) 44 138-367 x(10)3/cumm Low 2018 [facility] (27585) Comment: Performed By: #### ESR #### [facility] [place] [facility] [address] [place] [address] 41831 Plt Morph decreased- enlarged plts few Normal 0 11-11-2018 [facility] giant plts (82929) Comment: Performed By: #### ESR #### [facility] [place] [facility] [address] [place] [address] 65089 RBC #/vol (Bld) 4.08 3.90-5.10 X(10)6/cumm Normal 11-11-2018 [facility] (71214) Comment: Performed By: #### ESR #### [facility] [place] [facility] [address] [place] [address] 50283 RBC Morph cont Normal 11-11-2018 [facility] (45326) Comment: Performed By: #### ESR #### [facility] [place] [facility] [address] [place] [address] 08249 RBC morphology finding Nom normal Normal [facility] (d) (83331) Comment: Performed By: #### ESR #### [facility] [place] [facility] [address] [place] [address] 63054 Segmented neutrophils/100 WBC 87.4 44.9-78.8 % High 11-11-2018 [facility] ([facility]) [facility] ( 65731) Comment: Performed By: #### ESR #### [facility] [place] [facility] [address], [place] [address] WBC #/vol (Bld) 3.6 3.6-10.3 x(10)3/cumm Normal 11-11-2018 [facility] (27073) Comment: Performed By: #### ESR #### [facility] [address] [place] [address] 18649 WBC Morph lymphopenia Normal 11-11-2018 [facility] (37321) Comment: Performed By: #### ESR #### [facility] [address] [place] [address] 28251 c4 complement on 05-07-14 C4, Serum 4 15-57 mg/dL Low 07-01-2018 [facility] (60747) Comment: Result Comment: Test Perform ed by Terrence Rosas [employer] In [address] Oc Byrnes M.D., Ph.D. , Director of Laboratories , CLIA [id number] Performed By: #### ESR #### [facility] [address] [place] [address] 43764 c3 complement on 05-07-14 C3, Complement 41 83-193 mg/dL Low 07-01-2018 [facility] (75367) Comment: Result Comment: Test Perform ed by Terrence Rosas [employer] In [address], [place] Oc Byrnes M.D., Ph.D. , Director of Laboratories , CLIA [id number] Performed By: #### ESR #### [facility] [place] [facility] [address] [place] [address] 07893 anti dna ds on 2017 DNA (DS) Antibody 6676 <=4 IU/mL High 07-01-2018 [facility] (20068) Comment: Result Comment: Value Interp retation 5 - 9 IU/mL: Indeterminate >or=10 IU/mL: Positive Test Performed by Maya Rosas [employer] [address] [facility], [address] [place] [address] Oc Byrnes M.D., Ph.D. , Director of Laboratories , [facility] [id number] Performed By: #### ESR #### [facility] [address] [place] [address] 71531 cbc with diff on 05-07-11 Basophils #/vol (Bld) 0.0 0.0-0.1 x(10)3/cumm Normal 2017 [facility] ( 13587) Comment: Performed By: #### ESR #### [facility] [place] [facility] [address] [place] [address] 67534 Basophils/100 WBC (Bld) 0.4 0.0-1.0 % Normal 2017 [facility] (74199) Comment: Performed By: #### ESR #### [facility] [address] [place] [address] 27206 Eosinophils #/vol (Bld) 0.0 0.0-0.4 x(10)3/cumm Normal 06-18 [facility] ( 64555) Comment: Performed By: #### ESR #### [facility] [place] [facility] [address] [place] [address] 37423 Eosinophils/100 WBC (Bld) 0.5 0.0-6.1 % Normal 06-18 [facility] (15318) Comment: Performed By: #### ESR #### [facility] [place] [facility] [address] [place] [address] 15867 Erythrocyte distribution 16.3 11.1-15.3 % High 06-28 [facility] width Ratio (RBC) (0 0000) Comment: Performed By: #### ESR #### [facility] [place] [facility] [address] [place] [address] 96197 Hematocrit Volume Fraction 33.8 34.6-45.0 % Low [facility] (Bld) (50849) Comment: Performed By: #### ESR #### [facility] [place] [facility] [address] [place] [address] 32112 Hemoglobin mass conc (Bld) 11.4 11.5-15.5 gm/dL Low [facility] ( 52408) Comment: Performed By: #### ESR #### [facility] [address] [place] [address] 97766 Lymphocytes #/vol (Bld) 0.1 0.8-2.9 x(10)3/cumm Low 06-18 [facility] ( 36724) Comment: Performed By: #### ESR #### [facility] [address] [place] [address] 72558 Lymphocytes/100 WBC (Bld) 3.4 12.2-42.6 % Low 06-18 [facility] (06669) Comment: Performed By: #### ESR #### [facility] [address] [place] [address] 33483 MCH Entitic mass (RBC) 28.9 27.2-33.6 pg Normal 018 [facility] (59141) Comment: Performed By: #### ESR #### [facility] [address] [place] [address] 73690 MCHC mass conc (RBC) 33.6 32.9-35.3 gm/dL Normal 8 [facility] (05218) Comment: Performed By: #### ESR #### [facility] [address] [place] [address] 38372 MCV Entitic volume (RBC) 86.0 81.3-96.7 fL Normal 06-28 [facility] (21150) Comment: Performed By: #### ESR #### [facility] [address] [place] [address] 76685 Monocytes #/vol (Bld) 0.1 0.2-0.8 x(10)3/cumm Low 2017 [facility] (05260) Comment: Performed By: #### ESR #### [facility] [place] [address] [place] [address] 95842 Monocytes/100 WBC (Bld) 3.3 3.3-11.6 % Normal 2017 [facility] (64483) Comment: Performed By: #### ESR #### [facility] [address] [place] [address] 36697 Neutrophils #/vol (Bld) 3.9 1.3-7.4 x(10)3/cumm Normal 06-18 [facility] ( 76258) Comment: Performed By: #### ESR #### [facility] [address] [place] [address] 73444 Platelet mean volume 11.8 6.4-10.0 fL High 8 [facility] Entitic volume (Bld) (59632) Comment: Performed By: #### ESR #### [facility] [address] [place] [address] 16344 Platelets #/vol (Bld) 68 138-367 x(10)3/cumm Low 2017 [facility] (81412) Comment: Performed By: #### ESR #### [facility] [address] [place] [address] 22133 Plt Morph decreased, occ enlarged Normal 2017 [facility] (26850) Comment: Performed By: #### ESR #### [facility] [address] [place] [address] 98300 RBC #/vol (Bld) 3.93 3.90-5.10 X(10)6/cumm Normal 06-28-2018 [facility] (66331) Comment: Performed By: #### ESR #### [facility] [place] [facility] [address] [place] [address] 84460 RBC Morph cont Normal 06-28-2018 [facility] (61404) Comment: Performed By: #### ESR #### [facility] [address] [place] [address] 78587 RBC morphology finding Nom normal Normal [facility] (Bld) (08601) Comment: Performed By: #### ESR #### [facility] [place] [facility] [address] [place] [address] 04023 Segmented neutrophils/100 WBC 92.4 44.9-78.8 % High 06-28-2018 [facility] ([facility] ( 26391) Comment: Performed By: #### ESR #### [facility] [place] [facility] [address] [place] [address] 34198 WBC #/vol (Bld) 4.3 3.6-10.3 x(10)3/cumm Normal 06-28-2018 [facility] (38577) Comment: Performed By: #### ESR #### [facility] [address] [place] [address] 74436 WBC Morph less than 10% bands Normal 06-28-2018 [facility] (87008) Comment: Performed By: #### ESR #### [facility] [address] [place] [address] 63978 anti dna ds on 2017 DNA (DS) Antibody 02357 <=4 IU/mL High 05-18-2018 [facility] (30261) Comment: Result Comment: Value Interp retation 5 - 9 IU/mL: Indeterminate >or=10 IU/mL: Positive Test Performed by Maya Rosas, [employer] Kita [place] In [facility], [address] [place] [address] 84873 Oc Byrnes M.D., Ph.D. , Director of Laboratories , [facility] [id number] Performed By: #### ESR #### [facility] [place] [facility] [address] [place] [address] 09200 sjogrens abs ss-a/ss-b on 2018-05-17 Sjogren's Antibody (SS-A) >8.0 <1.0 High 04-19 [facility] (13249) Comment: Performed By: #### RAQNT, SJ OGRNS #### [facility] [place] [facility] [address] [place] [address] 29816 Sjogren's Antibody (SS-B) <1.0 <1.0 Normal 04-19 [facility] (15850) Comment: Result Comment: Test Perform ed by [employer] SystemsTerrence, [employer] [place] In [address], [place] Oc Byrnes M.D., Ph.D. , Director of Laboratories , CLIA [id number] Performed By: #### RAQNT, SJ OGRNS #### [facility] [address] [place] [address] 96856 rheumatoid factor o n 2018-05-17 Rheumatoid Factor 22 <14 IU/mL High 05-17-2018 [facility] (26124) Comment: Result Comment: Test Perform ed by Terrence Rosas, [employer] [place] In [address], [place] Oc Byrnes M.D., Ph.D. , Director of Laboratories , CLIA [id number] Performed By: #### RAQNT, SJ OGRNS #### [facility] [address] [place] [address] 69726 c4 complement on 04-05-31 C4, Serum 4 15-57 mg/dL Low 05-17-2018 [facility] (38009) Comment: Result Comment: Test Perform ed by Terrence Rosas [employer] [place] In [address], [place] Oc Byrnes M.D., Ph.D. , Director of Laboratories , CLIA [id number] Performed By: #### ESR #### [facility] [address] [place] [address] 11313 c3 complement on 04-05-31 C3, Complement 38 83-193 mg/dL Low 05-17-2018 [facility] (66659) Comment: Result Comment: Test Perform ed by Terrence Rosas, [employer] [facility] [place] In [address], [place] Oc Byrnes M.D., Ph.D. , Director of Laboratories , [facility] [id number] Performed By: #### C3, C4 ## ## [facility] [address] [place] [address] 14162 augustin - extractable nuclear abs on 2018-05-16 ELEVATOR EXAMINER AND ADJUSTER Antibodies 0.5 0.0-0.9 AI Normal 05-16-2018 [facility] (89830) Comment: Order Comment: Performed at: - [facility] [place] [address] Sales Property Manager: Dashawn whitehead PhD, Phone: [phone] Performed By: #### ENAABS ## ## [facility] RESULTS Desir Antibodies 1.4 0.0-0.9 AI High 05-16-2018 [facility] (64190) Comment: Order Comment: Performed at: - [facility] [address] [id number] Sales Property Manager: Dashawn whitehead PhD, Phone: [phone] Performed By: #### ENAABS ## ## [facility] RESULTS urinalysis on 05-13 Bili Qual Neg NEGATIVE Normal 05-13-2018 [facility] (80342) Comment: Performed By: #### UA #### [facility] [address] [place] [address] 96224 Blood 150 NEGATIVE Damian/uL Abnormal 05-13-2018 [facility] (51412) Comment: Performed By: #### UA #### [facility] [place] [facility] [address] [place] [address] 27980 Character Nom (U) Clear Normal 05-13-2018 [facility] (63806) Comment: Performed By: #### UA #### [facility] [place] [facility] [address] [place] [address] 86576 Color Nom (U) Yellow Normal 05-13-2018 [facility] (53675) Comment: Performed By: #### UA #### [facility] [address] [place] [address] 64788 Glucose mass conc Norm NORMAL Normal 05-13-2018 [facility] (61534) Comment: Performed By: #### UA #### [facility] [place] [facility] [address] [place] [address] 93663 Ketones Ql (U) Neg NEGATIVE Normal 05-13-2018 [facility] (93501) Comment: Performed By: #### UA #### [facility] [place] [facility] [address] [place] [address] 42330 Nitrite Ql (U) Neg NEGATIVE Normal 05-13-2018 [facility] (09596) Comment: Performed By: #### UA #### [facility] [place] [facility] [address] [place] [address] 68869 pH (Bld) 7 5.0-9.0 Normal 05-13-2018 [facility] (15696) Comment: Performed By: #### UA #### [facility] [address] [place] [address] 49950 Protein mass conc (U) 100 NEGATIVE mg/dL Abnormal 05-13-[address] [place] [address] (59671) Comment: Performed By: #### UA #### [facility] [address] [place] [address] 75932 SG 1.005 1.005-1.030 Normal 05-13-2018 [facility] (52047) Comment: Performed By: #### UA #### [facility] [place] [facility] [address] [place] [address] 06801 Urobilinogen Qn (U) Norm NORMAL Normal 05-13-2018 [facility] ([id number]) Comment: Performed By: #### UA #### [facility] [address] [place] [address] WBC #/vol (Bld) Neg NEGATIVE 10*3/uL Normal 05-13-2018 [facility] ([id number]) Comment: Performed By: #### UA #### [facility] [place] [facility] [address] [place] [address] comprehensive metabolic panel on 2018-05-13 Albumin mass conc 2.9 3.4-5.0 gm/dL Low 05-13-2018 [facility] ([id number]) Comment: Performed By: #### CMP #### [facility] [place] [facility] [address] [place], [place] [address] ALP enzyme act/vol 76 45-117 U/L Normal 05-13-2018 [facility] ([id number]) Comment: Performed By: #### CMP #### [facility] [place] [facility] [address] [place], [place] [address] ALT enzyme act/vol 31 12-78 U/L Normal 05-13-2018 [facility] ([id number]) Comment: Performed By: #### CMP #### [facility] [place] [facility] [address] [place], [place] [address] Anion gap molar conc 10 mmol/L Normal [address] [place] [address] ([id number]) Comment: Performed By: #### CMP #### [facility] [place] [facility] [address] [place], [place] [address] AST enzyme act/vol 34 15-37 U/L Normal 05-13-2018 [facility] ([id number]) Comment: Performed By: #### CMP #### [facility] [place] [facility] [address] [place] [address] Bili, Total 0.4 0.2-1.0 mg/dL Normal 05-13-2018 [facility] ([id number]) Comment: Performed By: #### CMP #### [facility] [address] [place] [address] C02 23 21-32 mmol/L Normal 05-13-2018 [facility] ([id number]) Comment: Performed By: #### CMP #### [facility] [place] [facility] [address] [place] [address] Calcium mass conc 8.5 8.5-10.1 mg/dL Normal 05-13-2018 [facility] ([id number]) Comment: Performed By: #### CMP #### [facility] [place] [facility] [address] [place] [address] Chloride molar conc 108 98-107 mmol/L High 05-13-2018 [facility] ([id number]) Comment: Performed By: #### CMP #### [facility] [address] [place] [address] Creatinine mass conc 0.73 0.60-1.30 mg/dL Normal [address] [place] [address] ([id number]) Comment: Performed By: #### CMP #### [facility] [address] [place] [address] eGFR -Amer >60 >=60 Normal 05-13-2018 [facility] ([id number]) Comment: Performed By: #### CMP #### [facility] [address] [place] [address] GFR/1.73 sq M >60 >=60 mL/min/{1.73_m2} Normal [address] [place] [address] predicted among Hosp ital (13753) non-blacks MDRD vol rate/area (S/P/Bld) Comment: Performed By: #### CMP #### [facility] [address] [place] [address] Glucose mass conc 133 74-106 mg/dL High 05-13-2018 [facility] ([id number]) Comment: Performed By: #### CMP #### [facility] [address] [place] [address] 08180 Potassium molar conc 4.6 3.5-5.1 mmol/L Normal [address] [place] [address] ([id number]) Comment: Performed By: #### CMP #### [facility] [address] [place] [address]36 Protein mass conc 7.3 6.4-8.2 gm/dL Normal 05-13-2018 [facility] ([id number]) Comment: Performed By: #### CMP #### [facility] [address] [place] [address] Sodium molar conc 141 136-145 mmol/L Normal 05-13-2018 [facility] ([id number]) Comment: Performed By: #### CMP #### [facility] [address] [place] [address] Urea nitrogen mass conc 14 7-18 mg/dL Normal 2017 [facility] ([id number]) Comment: Performed By: #### CMP #### [facility] [address] [place] [address] pastor cbc and diff on 2018-05-09 Comment Preliminary result. Interpret Normal 05-09-2018 [facility] with caution. Final results ([id number]) may vary. Results requested and read back by: Comment: Result Comment: PLATELET 41 [id number] [id number] MICHELLE Performed By: #### WCBCDF ## ## [facility] [address] [place] [phone] Eosinophils/100 WBC (Bld) 0.0 % Normal 04-18 [facility] ([id number]) Comment: Performed By: #### WCBCDF ## ## [facility] [address] [place] [phone] Erythrocyte distribution 13.1 11.5-15.0 % Normal 05-09 [facility] width Ratio (RBC) Cl robin ([id number]) Comment: Performed By: #### WCBCDF ## ## [facility] [address] [place] [phone] Hematocrit Volume Fraction 31.6 36.0-46.0 % Low [facility] (Bld) (27432) Comment: Performed By: #### WCBCDF ## ## [facility] [address] [place] [phone] Hemoglobin mass conc (Bld) 10.4 11.5-15.5 g/dL Low [facility] (77789) Comment: Performed By: #### WCBCDF ## ## [facility] [address] [place] [phone] Lymphocytes/100 WBC (Bld) 4.3 % Normal 04-18 [facility] (77790) Comment: Performed By: #### WCBCDF ## ## [facility] [address] [place], [place] [address] MCH Entitic mass (RBC) 28.4 26.0-34.0 pg Normal 018 [facility] (33686) Comment: Performed By: #### WCBCDF ## ## [place] [address] [place], [place] [address] MCHC mass conc (RBC) 32.9 30.5-36.0 g/dL Normal 8 [facility] (34944) Comment: Performed By: #### WCBCDF ## ## [place] [address] MCV Entitic volume 86.3 80.0-100.0 fL Normal 05-09-2018 [facility] (RBC) [place] ([address]30) Comment: Performed By: #### WCBCDF ## ## [place] [address] Platelet mean Unable to report 9.0-12.7 Normal 8 [facility] volume [place]itic [place] ([id number]) volume (Bld) Comment: Performed By: #### WCBCDF ## ## [address] [address] RBC #/vol (Bld) 3.66 3.90-5.20 m/uL Low 05-09-2018 [facility] (42738) Comment: Performed By: #### WCBCDF ## ## [place] [address] [place], [place] [address] WBC #/vol (Bld) 4.44 3.70-11.00 k/uL Normal 05-09-2018 [facility] ([id number]) Comment: Performed By: #### WCBCDF ## ## [address] [address] Pastor Abs Baso <0.03 <0.11 Normal 05-09-2018 [facility] ([id number]) Comment: Performed By: #### WCBCDF ## ## [facility] [address] [place] [phone] [place] Abs Eos <0.03 <0.46 Normal 05-09-2018 [facility] (46728) Comment: Performed By: #### WCBCDF ## ## [facility] [address] [place] [phone] Pastor Abs Lymp 0.19 1.00-4.00 k/uL Low 05-09-2018 [facility] ([id number]) Comment: Performed By: #### WCBCDF ## ## [facility] [address] [place] [phone] Pastor Abs [place] 0.18 <0.87 k/uL Normal 05-09-2018 [facility] ([id number]) Comment: Performed By: #### WCBCDF ## ## [facility] [address] [place] [phone] Pastor Abs Neut 4.06 1.45-7.50 k/uL Normal 05-09-2018 [facility] ([id number]) Comment: Performed By: #### WCBCDF ## ## [facility] [address] [place] [phone] [place] Baso% 0.2 % Normal 05-09-2018 [facility] (58089) Comment: Performed By: #### WCBCDF ## ## [facility] [address] [place] [phone] Pastor [place]% 4.1 % Normal 05-09-2018 [facility] (46561) Comment: Performed By: #### WCBCDF ## ## [facility] [address] [place] [phone] [place] Neut% 91.4 % Normal 05-09-2018 [facility] ([id number]) Comment: Performed By: #### WCBCDF ## ## [facility] [address] [place] [address] [place] Platelet Cnt 46 150-400 k/uL Low 8 [facility] ([id number]) Comment: Result Comment: Result check ed and verified No clot detected. Performed By: #### WCBCDF ## ## [facility] [address] [place], [place] [address] progress on 2018-04 Protein mass conc HNO ID: [id number] Normal [facility] Author: Jacky Madrid [place] ([id number]) Service: (none) Author Type: Physician Type: Progress Notes Filed: 05/10/2018 4:35 PM Note Text: Diagnosis: 1) Thrombocytopenia. HPI: Patient is 33-year-old female with a past medical histo ry significant for psoriatic arthritis. She's been following with a rheumat ologist for about 5 years. Previously was on Humira. For the last 6 han hs or so she's been on Cosentyx. No psoriatic plaques she had was on the sc alp and Humira did not help those. Since being on Cosentyx, lesions have cl eared. Patient was seen in consultation at [facility] a week before last for thrombocytopenia. Please see Dr. Naylor's consu lt note there for details. She was discharged but follow-up was not made with dermatolo gy regarding the facial lesions. These have progressed since the time of her discharge. She still has a little tenderness in the supraclavicular are a where she underwent I and D of a abscessed lymph node from strep throa t. No further fever. No shaking chills. Petechial rash in the lower extrem ities has resolved. She still has lacy erythematous rash on the skin o f the upper trunk. She's also developed a dry cough. It's an aggravating type o f cough is not productive of mucus. She doesn't feel postnasal drip but she has the need to clear her throat very frequently. No epistaxis or other s ymptoms of upper respiratory tract infection. She doesn't have reflux symptomatically. No wheezing, chest pain or shortness of adrian ath at rest. No unusual bleeding or unexplained bruising. Petechiae resol erica. PMH, medications and allergies personally reviewed by me barbara haji. Any changes documented in appropriate section. ROS: Constitutional: Denies episodes of fever. Neuro: Denies BRANDON, vertigo, dizziness and imbalance. HEENT: No recent change in voice, vision or hearing. Resp: Denies shortness of breath at rest. CVS: Denies exertional chest pain, PND, orthopnea and LE ora ma. GI: Denies dysgeusia. Denies symptoms of stomatitis. Denies dysphagia and odynophagia. Denies change in bowel habits and abdominal joann n. : Denies dysuria or gross hematuria. No symptoms of bladde r outlet obstruction. Endo: Denies hot flashes. Denies polyuria and polydipsia. De nies heat and cold intolerance. Derm: Denies jaundice and diffuse pruritis. Heme: See above. Psych: Normal mood. PHYSICAL EXAM: Vitals: Blood pressure 143/88, pulse 104, temperature 36.2 ? C (97.2 ?F), temperature source Temporal Artery, height 164.5 cm (5' 4.75 ), weight 128.8 kg (284 lb). Well-appearing and in no acute distress. EYES: Sclerae are anicteric bilaterally. ENT: Oral mucosa is unremarkable. There is no sign of thrush or mucositis. NECK: Supple. LYMPHATIC: There is no palpable cervical, supraclavicular or axillary adenopathy. RESPIRATORY: Inspiratory breath sounds are of normal intensi ty in all royal. No rales, wheezes or rhonchi. CARDIOVASCULAR: Rhythm is regular. Normal intensity S1/S2. ABDOMEN: The abdomen is nondistended. No tenderness. Extremities: No swelling or edema. SKIN: Well demarcated ulcerative lesions both cheeks. NEUROLOGIC: manager staffing II-XII are grossly intact. No focal motor we akness. MUSCULOSKELETAL: No muscle wasting. ASSESSMENT/PLAN: (Z87.39) History of lupus (primary encounter diagnosis) (D69.6) Thrombocytopenia (HCC) Assessment: -Thrombocytopenia likely multifactorial including recent maría g effect from antibiotic. 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 She has been having slow recovery of platelet count. Not complicated by any bleeding issues presently. She has facial lesions that are undiagnosed and recently had abscess from s trep throat. -Check anticardiolipin antibodies. [facility] including hepatitis and HIV negative. -Discussed with her today that I like her to follow-up with her lip cutter. She's got a call her prepared foods associate for an ap pointment. Plan: -Recheck CBC in about 3 months. -Follow-up with PCP. Jacky Madrid DO cnovsp on 2018-04-18 3 CNOVSP Visit (SP) Office (HEMAWS) Normal [place] [facility] KENDRA FRANCO ([id number]) 1985 [facility] Date Time Provider Department ([id number]) 05/09/18 1:30 PM JACKY MADRID During your visit today, we recorded the following informati on about you: Temperature Pulse Blood pressure Weight 97.2 degrees 104/minute 143/88 128.8 kg Height 1.645 m Jacky Madrid DO 05/10/2018 4:35 PM Signed Diagnosis: 1) Thrombocytopenia. HPI: Patient is 33-year-old female with a past medical history significant for psoriatic arthritis. She's been following with a rheumatol ogist for about 5 years. Previously was on Humira. For the last 6 months or so she's been on Cosentyx. No psoriatic plaqu es she had was on the scalp and Humira did not help those. Since being on Cosentyx, lesions have cleared. Patient was seen in consultation at [facility] a week before last for thrombocytopenia. Zora mcdowell see Dr. Naylor's consult note there for details. She was discharged but follow-up was not made with tiffany matology regarding the facial lesions. These have progressed since the time of her discharge. She still has a little tendernes s in the supraclavicular area where she underwent I and D of a abscessed lymph n ode from strep throat. No further fever. No shaking chills. Petechial rash in the lower extremities has resolv ed. She still has lacy erythematous rash on the skin of the upper trunk. She's also developed a dry cough. It's an aggravating type o f cough is not productive of mucus. She doesn't feel postnasal drip b ut she has the need to clear her throat very frequently. No epistaxis or other symp toms of upper respiratory tract infection. She doesn't have reflux symptom atically. No wheezing, chest pain or shortness of breath at rest. No unusual bleeding or unexplained bruising. Petechiae resol erica. PMH, medications and allergies personally reviewed by me félix griffith. Any changes documented in appropriate section. ROS: Constitutional: Denies episodes of fever. Neuro: Denies BRANDON, vertigo, dizziness and imbalance. HEENT: No recent change in voice, vision or hearing. Resp: Denies shortness of breath at rest. CVS: Denies exertional chest pain, PND, orthopnea and LE ora ma. GI: Denies dysgeusia. Denies symptoms of stomatitis. Denies dysphagia and odynophagia. Denies change in bowel habits and abdominal joann n. : Denies dysuria or gross hematuria. No symptoms of bladde r outlet obstruction. Endo: Denies hot flashes. Denies polyuri a and polydipsia. Denies heat and cold intolerance. Derm: Denies jaundice and diffuse pruritis. Heme: See above. Psych: Normal mood. PHYSICAL EXAM: Vitals: Blood pressure 143/88, pulse 104, temperature 36.2 ? C (97.2 ?F), temperature source Temporal Artery, height 164.5 cm (5' 4.75), weight 128.8 kg (284 lb). Well-appearing and in no acute distress. EYES: Sclerae are anicteric bilaterally. ENT: Oral mucosa is unremarkable. There is no sign of thrush or mucositis. NECK: Supple. LYMPHATIC: There is no palpable cervical, supraclavicular or axillary adenopathy. RESPIRATORY: Inspiratory breath sounds are of no rmal intensity in all royal. No rales, wheezes or rhonchi. CARDIOVASCULAR: Rhythm is regular. Normal intensity S1/S2. ABDOMEN: The abdomen is nondistended. No tenderness. Extremities: No swelling or edema. SKIN: Well demarcated ulcerative lesions both cheeks. NEUROLOGIC: manager staffing II-XII are grossly intact. No focal motor we akness. MUSCULOSKELETAL: No muscle wasting. ASSESSMENT/PLAN: (Z87.39) History of lupus (primary encounter diagnosis) (D69.6) Thrombocytopenia (HCC) Assessment: -Thrombocytopenia likely multifactorial including recent maría g effect from antibiotic. 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 She has been having slow recov damian of platelet count. Not complicated by any bleeding issues presently. She has facial lesions that are undiagnosed and recently had abscess from strep throat. -Check anticardiolipin antibodies. Previous workup in hospit [facility] including hepatitis and HIV negative. -Discussed with her today th at I like her to follow-up with her lip cutter. She's got a call her prepared foods associate for an appointment. Plan: -Recheck CBC in about 3 months. -Follow-up with PCP. Jacky Madrid DO Referring Provider: NABEEL SANDERS [[id number]] Allergies As of Date: 05/09/2018 Noted Allergy Reaction CODEINE 01/12/2012 8 - GI Upset Comments: States sharp stomach pains DOXYCYCLINE 07/28/2011 4 - Hives PERCOCET (OXYCODONE-ACETAMINOPHEN)07/22/2011 4 - Hives 10 - Anaphylaxis CLINDAMYCIN 05/09/2018 2 - Rash MORPHINE 10/21/2017 7 - Swelling Comments: uvula swelling PENICILLINS 11/28/2009 2 - Rash Date Reviewed: 05/09/2018 Reviewed by: Cyn Cardenas - Fully Assessed Reason for Visit: New Patient Evaluation [154] Primary Visit Diagnosis:History of lupus [Z87.39] Other Visit Diagnosis:Thrombocytopenia (HCC) [D69.6] Order(s):MONIKA BY IFA SCREEN [SQANAIFS] Order #: [id number] BETITO KANG ANTI-CARDIOLIPIN AB [SQCARDIO] Order #: [id number] FUTURE B 2 GPI IGG AND IGM [[id number]] Order #: [id number] FUTURE Follow-up and Disposition History Recorded Prescriptions as of 05/09/2018 Sig: BIOTIN ORAL Take 1 tablet by mouth once d* DULOXETINE 60 MG CAPSULE,KRISTOPHER* MUPIROCIN 2 % TOPICAL OINTMENT Apply 1 application to affect * Patient not taking: Reported on 05/09/2018 SECUKINUMAB 150 MG/ML SUBCUTA* Inject subcutaneously one kimberly * PREDNISONE 5 MG TABLET Take 5 mg by mouth once daily* LISINOPRIL ORAL Take by mouth. NORETHINDRONE (CONTRACEPTIVE)* Take 1 tablet by mouth once d * Patient not taking: Reported on 05/09/2018 MISOPROSTOL 200 MCG TABLET Take 4 tabs vaginally one kimberly* Patient not taking: Reported on 03/23/2018 FOLIC ACID ORAL Take by mouth. NORETHINDRONE (CONTRACEPTIVE)* Take 1 tablet by mouth once d * Patient not taking: Reported on 03/23/2018 RANITIDINE 150 MG TABLET Take 1 tablet by mouth twice * Patient not taking: Reported on 03/23/2018 VITAMIN,CALCIUM,MINE* Take 1 tablet by mouth. Problem List As Of Date 05/09/2018 Noted Resolved Supervision of Other High-Risk [O09.8*INVALID FOR* 01/27/2010 Routine general medical examination at a health*INVALID FOR* 10/13/2011 Priority: A Class: Chronic More... Routine gynecological examination [Z01.419] INVALID FOR*09/18 Priority: B Class: Chronic More... Cardiomyopathy, peripartum, [O90.3] INVALID FOR* More... TRAMAINE (generalized anxiety disorder) [F41.1] INVALID FOR* Impaired glucose tolerance [R73.02] INVALID FOR*04/11/2014 Lichen simplex chronicus [L28.0] INVALID FOR* Dyspareunia [HYU5748] INVALID FOR*04/11/2014 Pelvic cramping [R10.2] INVALID FOR*04/11/2014 Complex ovarian cyst [N83.299] INVALID FOR*04/11/2014 History of [Z98.891] INVALID FOR*04/11/2014 More... History of macrosomia in in prior pregna*INVALID FOR* 12/13/2017 More... Obesity, unspecified [E66.9] INVALID FOR*04/11/2014 More... History of depression [Z86.59] INVALID FOR* More... History of bronchitis [Z87.09] INVALID FOR*04/11/2014 More... Frequency of urination [R35.0] INVALID FOR* More... Elevated glucose [R73.09] INVALID FOR*04/11/2014 More... Maternal atypical antibody complicating pregnan*INVALID FOR* 04/11/2014 More... Gestational diabetes mellitus, antepartum [O24.*INVALID FOR* 04/11/2014 Antepartum multigravida of advanced maternal ag*INVALID FOR* 12/13/2017 More... History of delivery, currently pregnan*INVALID FOR* 12/13/2017 More... Obesity in , antepartum [O99.210] INVALID FOR* History of gestational diabetes in prior pregna*INVALID FOR* 12/13/2017 More... History of lupus [Z87.39] INVALID FOR* More... Thrombocytopenia affecting (HCC) [O99*INVALID FOR* Encounter Status:Closed by JACKY MADRID DO on 05/10/18 cardiolipin antibody on 2018-05-09 IgA Cardiolipin Ab. <9 0-11 Normal 05-09-2018 [facility] ([id number]) Comment: Result Comment: <12 APL Nega tive 12-40 APL Equivocal >40 APL Positive The following results were o btained with an [employer] QUANTA Lite LE IgA III CONCHIS. Cardiolipin IgA values obtained with different manufacturers' assay methods may not be used interchangeably. The magnitud e of the reported IgA levels cannot be correlated to an endpoint titer. Performed By: #### CARDIO, B 2GPGM, ANAIFS, ANABLL #### [facility] [address] [place] [address] IgG Cardiolipin Ab. <9 0-9 Normal 05-09-2018 [facility] ([id number]) Comment: Result Comment: <10 GPL Nega tive 10-40 GPL Equivocal >40 GPL Positive The following results were o btained with the [employer] QUANTA Lite LE IgG III CONCHIS. Cardiolipin IgG values obtained with the different manufacturers' assay methods may not be used interchangeably. The mag nitude of the reported IgG l evels cannot be correlated to an endpoint titer. Performed By: #### CARDIO, B 2GPGM, ANAIFS, ANABLL #### [facility] [place] [address] IgM Cardiolipin Ab. <9 0-11 Normal 05-09-2018 [facility] ([id number]) Comment: Result Comment: <12 MPL Nega tive 12-40 MPL Equivocal >40 MPL Positive The following results were o btained with the [employer] QUANTA Lite LE IgM III CONCHIS. Cardiolipin IgM values obtained with different manufacturers' assay methods may not be used interchangeably. The magnitu de of the reported IgM level s cannot be correlated to an endpoint titer. Performed By: #### CARDIO, B 2GPGM, ANAIFS, ANABLL #### [place] [address] b2 gpi igg and igm on 2018-05-09 Beta2 Glycoprot IgG <9 <20 Normal 05-09-2018 [facility] ([id number]) Comment: Result Comment: < 20 SGU Neg ative 20-80 SGU Low Positive > 80 SGU High Positive These results were obtained with the [employer] QUANTA Lite B2 GPI IgG CONCHIS. B2 GPI IgG values obtained with different manufacturers' assay methods may not be used interchangeably. The magnitude of the repo rted IgG levels cannot be co rrelated to an endpoint titer. Performed By: #### CARDIO, B 2GPGM, ANAIFS, ANABLL #### [place] [address] Protein mass conc <9 <20 g/dL Normal 05-09-[address] [facility] ([id number]) Comment: Result Comment: < 20 SMU Neg ative 20-80 SMU Low Positive > 80 SMU High Positive These results were obtained with the [employer] QUANTA Lite B2 GPI IgM CONCHIS. B2 GPI IgM values obtained with different manufacturers' assay methods may not be used interchangeably. The magnitude of the repo rted IgM levels cannot be co rrelated to an endpoint titer. Performed By: #### CARDIO, B 2GPGM, ANAIFS, ANABLL #### [place] [address] monika ifa titer bill on 2018-05-09 MONIKA IFA Titer Bill Billed for services Normal 0 05-09-2018 [facility] performed [place] ([id number]) Comment: Performed By: #### CARDIO, B 2GPGM, ANAIFS, ANABLL #### [facility] [facility] [address], [place] [address] monika by ifa on 05-09 MONIKA Pattern Homogeneous Normal 05-09-2018 [facility] ([id number]) Comment: Performed By: #### CARDIO, B 2GPGM, ANAIFS, ANABLL #### [facility] [address], [place] [address] MONIKA Titer 1:640 Negative Critically abnormal 05-09-2018 [facility] ([id number]) Comment: Performed By: #### CARDIO, B 2GPGM, ANAIFS, ANABLL #### [facility] [address], [place] [address] Nuclear Ab IF Positive Negative Critically abnormal 2017 [facility] titer (S) [place] ([id number]) Comment: Result Comment: Normal range : negative at <1:80 serum dilution. Performed By: #### CARDIO, B 2GPGM, ANAIFS, ANABLL #### [facility] [address], [place] [address] cthroat on CTHROAT . MICRO - MicrobiologyPROCEDURE: Normal 04-30-2018 [facility] Throat Culture [*1] ACCESSION: [facility] (NE) [id number]: Throat BODY ([id number]) SITE:COLLECTED DATE/TIME: 04/26/2018 14:35 EDT RECEIVED DATE/TIME: 04/27/2018 14:54 EDTSTART DATE/TIME: 04/27/2018 14:54 EDT FREE TEXT SOURCE:FINAL REPORTSFinal Report []Verified Date/Time/Personnel: 04/30/2018 13:21 EDTNormal throat arthur presentSensitivity Testing: Not IndicatedComment: The most common etiologic agents inpharyngitis include Group A beta Strep, Adenovirus, EBV,and CMV. A negative bacterial culture may besupplemented with a virus culture if duration of presentillness is less than 7 days.PRELIMINARY REPORTSPreliminary Report []Verified Date/Time/Personnel: 04/29/2018 11:47 EDTNormal throat arthur present.Final report to follow.Preliminary Report []Verified Date/Time/Personnel: 04/28/2018 09:47 EDTCulture results pending.Performing Locations*1: This test was performed at: [facility], [address] [place] [address], [id number] Comment: Performed By: #### LAC, CBC, ADIFF, ANEU, LD, MG, URIC, BMP, GFR ####[address] [address] monika on 2018-04-20 Nuclear Ab IF titer Positive Negative Abnormal 04-20-2018 [facility] ([facility] ( [id number]) Comment: Result Comment: MONIKA IFA is a first line screen for detecting the presence of up to approximat cristi 150 autoantibodies in various autoimmune diseases. A positive MONIKA IFA result is suggestive of autoimmune disease and reflexes to titer and pattern. Further l aboratory testing may be considered if clinically ind icated. Performed By: #### MONIKA #### [facility] [address] [place] [id number] Nuclear Ab IF titer (S) Homogeneous Normal 07- [facility] ([id number]) Comment: Result Comment: Homogeneous pattern is associated with systemic lupus erythematosus (SLE), drug-in duced lupus and juvenile idiopathic arthritis. Performed By: #### MONIKA #### [facility] [address] [place] [address] Nuclear Ab IF titer (S) SEE BELOW Normal 2017 [facility] ([id number]) Comment: Result Comment: Has been add ed Test Performed by Maya Rosas [employer] Kita Castro In [facility], [address] [place] [id number] Oc Byrnes M.D., Ph.D. , Director of Laboratories , CLIA [id number] Performed By: #### MONIKA #### [facility] [place] [facility] [address] [place] [address] Nuclear Ab IF titer >=1:1280 Negative Abnormal 04-20-2018 [facility] ( [id number]) Comment: Result Comment: Reference Ra nge: <1:40 Negative 1:40-1:80 Low Antibody Level >1:80 Elevated Antibody Levsonia siegel Visit Physician FAQs for int erpretation of all antibodies in the [place], p revalence, and association with diseases at http://education.Sleepy's/faq/KSQ429 Performed By: #### MONIKA #### [facility] [place] [facility] [address] [place], [place] [address] progress on 2018-04 Protein mass HNO ID: [id number] Normal 04-18-20 [facility] Author: Modesta Manzano) [facility] Service: (none) ([phone]) Author Type: Nurse Practitioner Type: Progress Notes Filed: 04/18/2018 10:17 AM Note Text: Subjective HPI HPI Kendra Franco is a 33 year old female who [facility] CC of sore throat and rash. This started 4 days. Has tried otc med ications without relief. Symptoms are worsened by nothing. Noone with similar symptoms noted. .Patient presents with: Derm Problem: redness on left francisco area x wednesday and left side of face Sore Throat: x 4 days PAST MEDICAL HISTORY Diagnosis Date - Abnormal glandular Papanicolaou smear of cervix Abn. Pap smear (cervix) - Cardiomyopathy 01/21/2010 post - Carpal tunnel syndrome - Dysthymic disorder Depression (non-psychotic) - Gestational diabetes mellitus, antepartum 03/16/2014 - Lupus - Migraine, unspecified, with intractable migraine, so state d, without mention of status migrainosus Migraine - Obesity - depression - Systemic lupus erythematosus (HCC) PAST SURGICAL HISTORY Procedure Laterality Date - APPENDECTOMY - DELIVERY ONLY 01/14/2010 , low transverse - COLPOSCOPY (VAGINOSCOPY) Colposcopy - LAP CHOLECYSTOENTEROSTOMY 06/2011 ALLERGIES Codeine; Doxycycline; Percocet [Oxycodone-Acetamin ophen]; Morphine; Penicillins MEDICATIONS DULoxetine (CYMBALTA) 60 mg capsule secukinumab (COSENTYX) 150 mg/mL injection Inject subcutaneo usly one time only. predniSONE (DELTASONE) 5 mg tablet Take 5 mg by mouth once d aily. as necessary LISINOPRIL ORAL Take by mouth. Norethindrone, Contraceptive, (ORTHO MICRONOR) 0.35 mg table t Take 1 tablet by mouth once daily. METHOTREXATE MISC FOLIC ACID ORAL Take by mouth. cephALEXin (KEFLEX) 500 mg capsule Take 1 capsule by mouth t hree times daily for 10 days. mupirocin (BACTROBAN) 2 % ointment Apply 1 application to af fected area three times daily. Location: face Chlorhexidine Gluconate (PERIDEX) 0.12 % solution Use 15 mL as instructed twice daily. miSOPROStol (CYTOTEC) 200 mcg tablet Take 4 tabs vaginally o ne time. ADALIMUMAB (HUMIRA PEN SUBCUTANEOUS) Inject subcutaneously e very 2 weeks. buPROPion SR (WELLBUTRIN SR) 150 mg 12 hr tablet Take 1 tabl et by mouth twice daily. Norethindrone, Contraceptive, (NOR-QD) 0.35 mg tablet Take 1 tablet by mouth once daily. ranitidine (ZANTAC) 150 mg tablet Take 1 tablet by mouth twi ce daily. Rclezvwe-Ut-Gai-Fe-FA ( VITAMIN) Tab Take 1 tablet by mouth. FAMILY HISTORY Problem Relation Age of Onset - Arthritis Mother rheumatoid - Thyroid Mother - Heart Mother - Lipids Father - Cancer Maternal Grandmother LUNG CANCER - Heart Maternal Grandmother - Thyroid Maternal Grandmother - Heart Paternal Grandmother - Thyroid Maternal Aunt - Thyroid Maternal Aunt Social History Substance Use Topics - Smoking status: Never Smoker - Smokeless tobacco: Never Used - Alcohol use Yes Comment: social alcohol use, not while Review of Systems Constitutional: Negative for chills, fever and weight loss. HENT: Positive for sore throat. Negative for congestion, ear pain and nosebleeds. Respiratory: Negative for cough, shortness of breath and whe ezing. Cardiovascular: Negative for chest pain. Musculoskeletal: Negative for neck pain. Skin: Positive for rash. Negative for itching. Objective Blood pressure 144/90, pulse 70, temperature 36.8 ?C (98.3 ? F), temperature source Tympanic, resp. rate 16, weight 132 kg (2 91 lb). Physical Exam Constitutional: She is oriented to person, place, and time a nd well-developed, well-nourished, and in no distress. Non-toxi c appearance. She does not have a sickly appearance. No distress. HENT: Head: Normocephalic and atraumatic. Right Ear: Hearing, tympanic membrane, external ear and ear canal normal. Left Ear: Hearing, tympanic membrane, external ear and ear c anal normal. Nose: Nose normal. Mouth/Throat: Uvula is midline, oropharynx is clear and mois t and mucous membranes are normal. Eyes: Conjunctivae and lids are normal. Pupils are equal, ro und, and reactive to light. Right eye exhibits no discharge. Left eye exhibits no discharge. No scleral icterus. Neck: Trachea normal and normal range of motion. Neck supple . Cardiovascular: Normal rate, regular rhythm and normal heart sounds. Pulmonary/Chest: Effort normal and breath sounds normal. Lymphadenopathy: She has no cervical adenopathy. Neurological: She is alert and oriented to person, place, an d time. Skin: No rash noted. She is not diaphoretic. ASSESSMENT/PLAN: 1. Impetigo - ICD9: 684, ICD10: L01.00 (primary diagnosis) - Topical treatment with mupirocin ointment (Bactroban) TID - Systemic treatment with Cephalaxin (Keflex) - Skin care and contagious disease precautions discussed - Follow up if symptoms persist or fail to resolve -will cover with double treatment, patient greatly concerned d/t large amount present on face. - CEPHALEXIN 500 MG CAPSULE - MUPIROCIN 2 % TOPICAL OINTMENT 2. Sore throat - ICD9: 462, ICD10: J02.9 - suspect viral - Rapid Strep negative in the office today and Throat cultur e pending - Discussed supportive care treatment with fluids, rest and analgesia. - The patient should follow up in 3-5 days if symptoms persi st or worsen - GROUP A STREPTOCOCCUS BY PCR - RAPID STREP TEST B/O Prescription instructions reviewed with patient as applicabl e. Patient advised if symptoms do not improve or if symptoms worsen camilo ner, to contact the office for further evaluation by their primary c are physician. Potential red flag symptoms discussed with the patient. Revi ewed appropriate action plan to take if red flag symptoms occur. Patient agreeable to treatment plan. Mdoesta Mejía APRN.CNP group a strep by pcr on 2018-04-18 GAS Specimen Source Throat Swab Normal 04-18-20 18 [facility] ([id number]) Comment: Performed By: #### GASPCR ## ## [facility] [address], [place] [address] Group A Strep Positive for Group A Critically [facility] PCR Streptococcus by PCR. abnormal [place] ([id number]) Comment: Result Comment: This test wa s developed and its performance characteristics determined by [facility]'s [facility] [place] ([facility]). It has not been cleared or a pproved by the FDA. [facility] is regulated under CLIA as qualified to perform high-complexity testing. This test is used for clinical purposes. It should not be regarded as inv estigational or for research . Performed By: #### GASPCR ## ## [facility] [address], [place] [address] cnov on 2018-04-18 CNOV Office Visit ([facility]) Normal 04-18-20 18 [place] [facility] KENDRA FRANCO ([id number]) 1985 [facility] Date Time Provider Department ([id number]) 04/18/18 9:30 AM MODESTA MEJÍA (MOISE) [facility] During your visit today, we recorded the following informati on about you: Temperature Pulse Respiration Blood pressure 98.3 degrees 70/minute 16/minute 144/90 Weight 132 kg Modesta Mejía APRN.CNP 04/18/2018 10:00 AM Signed Impetigo By [facility] Staff Impetigo (ae-ipi-OUA-go) is a highly contagious skin infecti on that mainly affects infants and children. Impetigo usually appears as re d sores on the face, especially around a child's nose and mouth . The sores burst and develop honey-colored crusts. Impetigo may clear on its own in two to three weeks, but ant ibiotics can shorten the course of the disease and help prevent the sprea d to others. You may need to keep your ch ild home from school or day care until he or she is no longer contagious, which is usually 24 to 48 hours after you begin antibiotic treatment. Without antibiotics, impetigo is con tagious until the sores go away. Classic signs and symptoms of impetigo i nvolve red sores that quickly rupture, ooze for a few days and then form a yellowish-brown cr ust. The sores usually occur around the nose and mo uth but can be spread to other areas of the body by fingers, clothing and towels. You're exposed to the bacteria that cause impeti go when you come into contact with the sores of someone who's infected or with items they've touched ? such as clothing, bed linen, towels and even toys. Factors that increase the risk of impetigo include: -Age. Although anyone can de velop impetigo, it most commonly occurs in children ages 2 to 6. -Crowded conditions. Impetigo spreads easily in schools and child care aide settings. -Warm, humid weather. Impetigo infections are more common in summer. -Certain sports. Participation in sports that involve skin -to-skin contact, such as football or wrestling, increases your risk of develo ping impetigo. -Broken skin. The bacteria that cause im petigo often enter your skin through a small skin injury, insect bite or rash. Older adults and people with diabetes or a compr omised immune system are more likely to develop ecthyma, a deeper and more serious form of impetigo. Impetigo typically isn't dangerous, but complications can so metimes occur. Examples include: -Scarring. The ulcers associated with ecthyma, a deeper and more serious form of impetigo, can leave scars. -Cellulitis. This potentially serious in fection affects the tissues underlying your skin and eventually may spread to your lymph nodes and into the bloodstream. Left untreated, cellulitis can quickly be come life-threatening. -Kidney problems. One of the types of bacteria that cause impetigo can also damage your kidneys. Your family doctor or your emily badillo's mechanical drawing teacher can diagnose impetigo. When you call to make your appointment, ask if you should follow an y restrictions to prevent infecting others in the waiting room. Doctors usually diagnose imp etigo by looking at the distinctive sores. Usually, lab tests aren't necessary. But if the s ores don't clear, even with antibiotic treatment, your doctor may take a sample of the liquid produced by a sore and test it to see what types of antibiotics might w ork best on it. Some types of the bacteria that cause impetigo have become resistant to certain antibiotic drugs. Antibiotics are the mainstay of impetigo treatments. These d rugs can be delivered by an ointment or cream that you apply directly to the sores. You may need to first soak the affected area in warm water or use wet compresses to help remove the overlying scabs. If you have more than just a few impetigo sores, your doctor might recommend antibiotic drugs that can be taken by mouth. Be sure to fini sh the entire course of medication even if the sores are healed. This help s prevent the infection from recurring and makes antibiotic resistance les s likely. For minor infections that brandon forest't spread to other areas, you could try treating the sores with an tvys-eic-rivdipr antibiotic cr eam or ointment that contains bacitracin. Placing a nonsti ck bandage over the area can help prevent the sores from spreading. Keeping the skin clean is th e best way to keep it healthy. Treat cuts, scrapes, insect bites and other wounds right away by washing the affe cted areas. If someone in your family already has impetigo, take these measures to help keep the infection from spreading to others: -Gently wash the affected ar eas with mild soap and running water and then cover lightly with gauze. -Wash an infected person's c lothes, linens and towels every day and don't share them with anyone else in your family. -Wear gloves when applying any antibiotic ointment and wash your hands thoroughly afterward. -Cut an infected child's nails short to prevent damage from scratching. -Wash hands frequently. -Keep your child home until your doctor says he or she isn't contagious. References 1.Mac WILDE, et al. Alvin Textbook of Pediatrics. 19th ed. Tadeo Frazier.: Hemant Martínezvier; 2010. http://www.HERMEL DELOR/campbell /book/body/368041262-2/0/1608/0.html. Accessed 2012. 2.Janeth TP. Clinical Dermatology: A Color Guide to Diagnosis and Therapy. 5th ed. [employer], [place] Sergey Paxeravier; 2009. http://www.HERMEL DELOR/books/about.do?about=trueANDeid=4-u1.1-G533-2W747-0-4246-6593 -- 9..F0668-3--BISRTDmztr=330-4 -3888-1546-4OGPjwsqCg3CEOorkdSe=[id number]. Accessed 2012. 3.Maris CONLEY. Impetigo. http://www.MatchMine.Pomme de Terra/ home. Accessed 2012. 4.AskMayoExpert. Impetigo. [facility].: [facility]; 2012. 5.Dee WELLER. Dee's Clinical Advisor 2013:5 Books in 1. Tadeo Briones.: Sergey Paxeravier; 2011. http://www.HERMEL DELOR/books/about.do?junie=4-u1.5-Z184-7K922-2-732-60480-5..04048-9PU D- ooao=519-4-318-14582-3KDTalx yb=dtaqJJRjbfcOk=[id number]. Accessed 2012. 6.Impetigo care. [employer] Academy of Pediatrics. http://www.healthychildren.org/Latvian/health-issues/conditions/skin/Pages/Impe- tigo.aspx?gwgmsvar=660YYBjekuzhv=[id number] jay- cription=ERROR%3a+No+local+token. Accessed 2012. 7.Marc LOFTON (expert opinion). [facility], [facility] . December 27, 2012. 8.Tarah Maher, et al. Lissette's Color [place] and Synopsis of Clinical Dermatology.6th ed. [place] [facility] [employer] [facility] Dontekay s; 2008. http://www.VentureBeat.co m/resourceTOC.aspx?resourceID=45. Accessed 2012. 9.Maris CONLEY. Patient information: Impetigo (beyond the basi cs). http://www.MatchMine.Pomme de Terra/home. Accessed 2012. March 01, 2013 Modesta Mejía APRN.MENDING CARRIER 04/18/2018 10:17 AM Signed Subjective HPI HPI Kendra Franco is a 33 year old female who present s today for CC of sore throat and rash. This started 4 days. Has tried otc medicati ons without relief. Symptoms are worsened by nothing. Noone with s imilar symptoms noted. .Patient presents with: Derm Problem: redness on left francisco area x wednesday and left side of face Sore Throat: x 4 days PAST MEDICAL HISTORY Diagnosis Date - Abnormal glandular Papanicolaou smear of cervix Abn. Pap smear (cervix) - Cardiomyopathy 01/21/2010 post - Carpal tunnel syndrome - Dysthymic disorder Depression (non-psychotic) - Gestational diabetes mellitus, antepartum 03/16/2014 - Lupus - Migraine, unspecified, with intractabl e migraine, so stated, without mention of status migrainosus Migraine - Obesity - depression - Systemic lupus erythematosus (HCC) PAST SURGICAL HISTORY Procedure Laterality Date - APPENDECTOMY - DELIVERY ONLY 01/14/2010 , low transverse - COLPOSCOPY (VAGINOSCOPY) Colposcopy - LAP CHOLECYSTOENTEROSTOMY 06/2011 ALLERGIES Codeine; Doxycycline; Percocet [Oxycod one-Acetaminophen]; Morphine; Penicillins MEDICATIONS DULoxetine (CYMBALTA) 60 mg capsule secukinumab (COSENTYX) 150 m g/mL injection Inject subcutaneously one time only. predniSONE (DELTASONE) 5 mg tablet Take 5 mg by mouth once daily. as necessary LISINOPRIL ORAL Take by mouth. Norethindrone, Contraceptive, (ORTHO JOSEPH RONOR) 0.35 mg tablet Take 1 tablet by mouth once daily. METHOTREXATE MISC FOLIC ACID ORAL Take by mouth. cephALEXin (KEFLEX) 500 mg capsule Take 1 capsule by m outh three times daily for 10 days. mupirocin (BACTROBAN) 2 % ointment Apply 1 appli cation to affected area three times daily. Location: face Chlorhexidine Gluconate (PER IDEX) 0.12 % solution Use 15 mL as instructed twice daily. miSOPROStol (CYTOTEC) 200 mcg tablet Take 4 tabs vaginally o ne time. ADALIMUMAB (HUMIRA PEN SUBCUTANEOUS) Inject subcutaneously e very 2 weeks. buPROPion SR (WELLBUTRIN SR) 150 mg 12 hr tablet Take 1 tablet by mouth twice daily. Norethindrone, Contraceptive, (NOR-QD) 0.35 mg tablet Take 1 tablet by mouth once daily. ranitidine (ZANTAC) 150 mg tablet Take 1 tablet by mouth twi ce daily. Firccmab-Xa-Skc-Fe-FA ( VITAMIN ) Tab Take 1 tablet by mouth. FAMILY HISTORY Problem Relation Age of Onset - Arthritis Mother rheumatoid - Thyroid Mother - Heart Mother - Lipids Father - Cancer Maternal Grandmother LUNG CANCER - Heart Maternal Grandmother - Thyroid Maternal Grandmother - Heart Paternal Grandmother - Thyroid Maternal Aunt - Thyroid Maternal Aunt Social History Substance Use Topics - Smoking status: Never Smoker - Smokeless tobacco: Never Used - Alcohol use Yes Comment: social alcohol use, not while Review of Systems Constitutional: Negative for chills, fever and weight loss. HENT: Positive for sore throat. Negative for congestion, ear pain and nosebleeds. Respiratory: Negative for cough, shortness of breath and whe ezing. Cardiovascular: Negative for chest pain. Musculoskeletal: Negative for neck pain. Skin: Positive for rash. Negative for itching. Objective Blood pressure 144/90, pulse 70, temperature 36.8 ?C (98.3 ?F), temperature source Tympanic, resp. rate 16, weight 132 kg (291 lb). Physical Exam Constitutional: She is oriented to perso n, place, and time and well-developed, well-nourished, and in no distress. Non-toxic ap pearance. She does not have a sickly appearance. No distress. HENT: Head: Normocephalic and atraumatic. Right Ear: Hearing, tympanic membrane, external ear and ear canal normal. Left Ear: Hearing, tympanic membrane, external ear and ear c anal normal. Nose: Nose normal. Mouth/Throat: Uvula is midline, oropharynx is clear and mois t and mucous membranes are normal. Eyes: Conjunctivae and lids are normal. Pupils a re equal, round, and reactive to light. Right eye exhibits no discharge. Left eye exhibits no discharge. No scleral icterus. Neck: Trachea normal and normal range of motion. Neck supple . Cardiovascular: Normal rate, regular rhythm and normal heart sounds. Pulmonary/Chest: Effort normal and breath sounds normal. Lymphadenopathy: She has no cervical adenopathy. Neurological: She is alert and oriented to person, place, an d time. Skin: No rash noted. She is not diaphoretic. ASSESSMENT/PLAN: 1. Impetigo - ICD9: 684, ICD10: L01.00 (primary diagnosis) - Topical treatment with mupirocin ointment (Bactroban) TID - Systemic treatment with Cephalaxin (Keflex) - Skin care and contagious disease precautions discussed - Follow up if symptoms persist or fail to resolve -will cover with double treatment, patient great ly concerned d/t large amount present on face. - CEPHALEXIN 500 MG CAPSULE - MUPIROCIN 2 % TOPICAL OINTMENT 2. Sore throat - ICD9: 462, ICD10: J02.9 - suspect viral - Rapid Strep negative in the office today and Throat cultur e pending - Discussed supportive care treatment with fluids, rest and analgesia. - The patient should follow up in 3-5 days if symptoms persi st or worsen - GROUP A STREPTOCOCCUS BY PCR - RAPID STREP TEST B/O Prescription instructions reviewed with patient as applicable. Patient advised if symptoms do not improve or if symptom s worsen sooner, to contact the office for further evaluation by their primary care physician. Pote ntial red flag symptoms discussed with the patient. Reviewed ap propriate action plan to take if red flag symptoms occur. Patient agreeable to treatment zora prince. Modesta Mejía APRN.MENDING CARRIER Referring Provider: SELF [200] Allergies As of Date: 04/18/2018 Noted Allergy Reaction CODEINE 01/12/2012 8 - GI Upset Comments: States sharp stomach pains DOXYCYCLINE 07/28/2011 4 - Hives PERCOCET (OXYCODONE-ACETAMINOPHEN)07/22/2011 4 - Hives 10 - Anaphylaxis MORPHINE 10/21/2017 7 - Swelling Comments: uvula swelling PENICILLINS 11/28/2009 2 - Rash Date Reviewed: 04/18/2018 Reviewed by: Modesta [facility] Mej[facility] - Fully Assessed Reason for Visit: Derm Problem [33] Cmt: redness on left francisco area x sat urday and left side of face Sore Throat [200] Cmt: x 4 days Primary Visit Diagnosis:Impetigo [L01.00] Other Visit Diagnosis:Sore throat [J02.9] Order(s):GROUP A STREPTOCOCCUS BY PCR [SQGASPCR] Order #: [id number] RAPID STREP TEST B/O [[id number]] Order #: [id number] cephALEXin (KEFLEX) 500 mg capsuleTake 1 capsule by mouth th ree times daily for 10 days.Disp: 30 capsuleRfl: 0 mupirocin (BACTROBAN) 2 % ointmentApply 1 application to aff ected area three times daily. [facility]: 0 Prescriptions as of 04/18/2018 Sig: DULOXETINE 60 MG CAPSULE,KRISTOPHER* SECUKINUMAB 150 MG/ML SUBCUTA* Inject subcutaneously one kimberly * PREDNISONE 5 MG TABLET Take 5 mg by mouth once daily* LISINOPRIL ORAL Take by mouth. NORETHINDRONE (CONTRACEPTIVE)* Take 1 tablet by mouth once d * METHOTREXATE MISC FOLIC ACID ORAL Take by mouth. CEPHALEXIN 500 MG CAPSULE Take 1 capsule by mouth three* MUPIROCIN 2 % TOPICAL OINTMENT Apply 1 application to affect * MISOPROSTOL 200 MCG TABLET Take 4 tabs vaginally one kimberly* Patient not taking: Reported on 03/23/2018 HUMIRA PEN SUBCUTANEOUS Inject subcutaneously every 2* BUPROPION HCL SR 150 MG TABLE* Take 1 tablet by mouth twice * Patient not taking: Reported on 03/23/2018 NORETHINDRONE (CONTRACEPTIVE)* Take 1 tablet by mouth once d * Patient not taking: Reported on 03/23/2018 RANITIDINE 150 MG TABLET Take 1 tablet by mouth twice * Patient not taking: Reported on 03/23/2018 VITAMIN,CALCIUM,MINE* Take 1 tablet by mouth. Medication notes this encounter METHOTREXATE MISC >> Lexus Cruz Ma 04/18/2018 9:33 AM >> LEXUS CRUZ MA WedApr 18, 2018 9:33 AM FOLIC ACID ORAL >> Lexus Nancy Mercer 04/18/2018 9:32 AM >> NANCY MERCERMABELLEXUSMAXIMUS Baumann Apr 18, 2018 9:32 AM Problem List As Of Date 04/18/2018 Noted Resolved Supervision of Other High-Risk [O09.8*INVALID FOR* 01/27/2010 Routine general medical examination at a [facility] [place]*INVALID FOR* 10/13/2011 Priority: A Class: Chronic More... Routine gynecological examination [Z01.419] INVALID FOR*09/18 Priority: B Class: Chronic More... Cardiomyopathy, peripartum, [O90.3] INVALID FOR* More... TRAMAINE (generalized anxiety disorder) [F41.1] INVALID FOR* Impaired glucose tolerance [R73.02] INVALID FOR*04/11/2014 Lichen simplex chronicus [L28.0] INVALID FOR* Dyspareunia [OQH1625] INVALID FOR*04/11/2014 Pelvic cramping [R10.2] INVALID FOR*04/11/2014 Complex ovarian cyst [N83.299] INVALID FOR*04/11/2014 History of [Z98.891] INVALID FOR*04/11/2014 More... History of macrosomia in infant in prior pregna*INVALID FOR* 12/13/2017 More... Obesity, unspecified [E66.9] INVALID FOR*04/11/2014 More... History of depression [Z86.59] INVALID FOR* More... History of bronchitis [Z87.09] INVALID FOR*04/11/2014 More... Frequency of urination [R35.0] INVALID FOR* More... Elevated glucose [R73.09] INVALID FOR*04/11/2014 More... Maternal atypical antibody complicating pregnan*INVALID FOR* 04/11/2014 More... Gestational diabetes mellitus, antepartum [O24.*INVALID FOR* 04/11/2014 Antepartum multigravida of advanced maternal ag*INVALID FOR* 12/13/2017 More... History of delivery, currently pregnan*INVALID FOR* 12/13/2017 More... Obesity in , antepartum [O99.210] INVALID FOR* History of gestational diabetes in prior pregna*INVALID FOR* 12/13/2017 More... History of lupus [Z87.39] INVALID FOR* More... Thrombocytopenia affecting (HCC) [O99*INVALID FOR* Other instructions from your clinician: Impetigo By [facility] Staff Impetigo (mu-vri-TMK-go) is a highly contagious skin infecti on that mainly affects infants and children. Impetigo usually appears as re d sores on the face, especially around a child's nose and mouth. The sores burst and develop honey-colored crusts. Impetigo may clear on its own in two to three weeks, but ant ibiotics can shorten the course of the disease and help prevent the sprea d to others. You may need to keep your child home from school or day care until he or she is no longer contagious, which is usually 24 to 48 hours after you begin antibiotic treatment. Without antibiotics, impetigo is contagious until the sores go away. Classic signs and symptoms of impetigo involve red sores andrez t quickly rupture, ooze for a few days and then form a yellowish-brown crust. The sores usually occur around the nose and mouth but can be spr ead to other areas of the body by fingers, clothing and towels. You're exposed to the bacteria that cause impetigo when you come into contact with the sores of someone who's infected or with ite ms they've touched ? such as clothing, bed linen, towels and even toys. Factors that increase the risk of impetigo include: -Age. Although anyone can develop impetigo, it most commonly occurs in children ages 2 to 6. -Crowded conditions. Impetigo spreads easily in schools and child care aide settings. -Warm, humid weather. Impetigo infections are more common in summer. -Certain sports. Participation in sports that involve skin-t o-skin contact, such as football or wrestling, increases your risk of developing impetigo. -Broken skin. The bacteria that cause impetigo often enter y our skin through a small skin injury, insect bite or rash. Older adults and people with diabetes or a compromised immun e system are more likely to develop ecthyma, a deeper and more serious fo rm of impetigo. Impetigo typically isn't dangerous, but complications can so metimes occur. Examples include: -Scarring. The ulcers associated with ecthyma, a deeper and more serious form of impetigo, can leave scars. -Cellulitis. This potentially serious infection affects the tissues underlying your skin and eventually may spread to your lymph nodes and into the bloodstream. Left untreated, cellulitis can quickly become life-threatening. -Kidney problems. One of the types of bacteria that cause im petigo can also damage your kidneys. Your family doctor or your child's mechanical drawing teacher can diagnose impetigo. When you call to make your appointment, ask if you should fo llow any restrictions to prevent infecting others in the waiting room . Doctors usually diagnose impetigo by looking at the distinct karina sores. Usually, lab tests aren't necessary. But if the sores don't clear, even with antibiotic treatment, your doctor may take a sample of the liquid produced by a sore and test it to see what types of antibiot ics might work best on it. Some types of the bacteria that cause impetigo h ave become resistant to certain antibiotic drugs. Antibiotics are the mainstay of impetigo treatments. These d rugs can be delivered by an ointment or cream that you apply directly to the sores. You may need to first soak the affected area in warm water o r use wet compresses to help remove the overlying scabs. If you have more than just a few impetigo sores, your doctor might recommend antibiotic drugs that can be taken by mouth. Be taylor re to finish the entire course of medication even if the sores are healed . This helps prevent the infection from recurring and makes antibiotic re sistance less likely. For minor infections that haven't spread to other areas, you could try treating the sores with an mhte-gtg-dwhdadl antibiotic cream or ointment that contains bacitracin. Placing a nonstick bandage over th e area can help prevent the sores from spreading. Keeping the skin clean is the best way to keep it healthy. T reat cuts, scrapes, insect bites and other wounds right away by washing the affected areas. If someone in your family already has impetigo, take these m easures to help keep the infection from spreading to others: -Gently wash the affected areas with mild soap and running w ater and then cover lightly with gauze. -Wash an infected person's clothes, linens and towels every day and don't share them with anyone else in your family. -Wear gloves when applying any antibiotic ointment and wash your hands thoroughly afterward. -Cut an infected child's nails short to prevent damage from scratching. -Wash hands frequently. -Keep your child home until your doctor says he or she isn't contagious. References 1.Mac WILDE, et al. Alvin Textbook of Pediatrics. 19th ed . Tadeo Frazier.: Hemant Thacker; 2011. http://www.HERMEL DELOR/campbell/book/body/712885815-5/0/1608/0. html. Accessed 2012. 2.Janeth CLAYTON. Clinical Dermatology: A Color Guide to Diagnosis and Therapy. 5th ed. [employer] [place] Sergey [employer]; 201 0. http://www.HERMEL DELOR/books/about.do?about=tr ueANDeid=4-u1.2-X419-7B176-0-4729-7 541-9..O4779-8--RFCYDQenqb=[id number]= [id number]. Accessed 2012. 3.Maris CONLEY. Impetigo. http://www.MatchMine.Pomme de Terra/home. Access ed 2012. 4.Bernardoert. Impetigo. [facility].: [facility]; 2012. 5.Dee WELLER. Dee's Clinical Advisor 2013:5 Books in 1. Tadeo Briones.: [employer]; 2011. http://www.HERMEL DELOR/books/about.do?junie=4-u1.0-B978-0- 323-11972-2..0000 2-3DKQqdkm=117-4-571-20206-8ASAmfthv=djx mFYRilfiPt=[id number]. Accessed 2012. 6.Impetigo care. [employer] Academy of Pediatrics. http://www.healthychildren.org/Latvian/health-issues/condi tions/skin/Pages/ Impetigo.aspx?mihismdj=653RN Juretyqg=45763002-2453-0953-1274-709962592869DXJnza tatusdescription=ERROR%3a+No+local+token. Accessed 2012. 7.Marc LOFTON (expert opinion). [facility]. December 27, 2012. 8.Tarah Maher et al. Lissette's Color [place] and Synopsis of Clinical Dermatology.6th ed. [place] The [facility] s; 2008. http://www.VentureBeat.Pomme [place]ra/resourceTOC.aspx?resourceID=45 . Accessed 2012. 9.Maris CONLEY. Patient information: Impetigo (beyond the basi cs). http://www.MatchMine.[place]ra/home. Accessed 2012. March 01, 2013 Prescriptions ordered this encounter Disp Refills Start End CEPHALEXIN 500 MG CAPSULE 30 c* 0 04/18/2018 04/28/2018 Route: ORAL Sig: Take 1 capsule by mouth three times daily for 10 days. MUPIROCIN 2 % TOPICAL OINTMENT 22 g 0 04/18/2018 Route: TOPICAL Sig: Apply 1 application to affected area three times susan y. Location: face Medications Discontinued During This Encounter Chlorhexidine Gluconate (PERIDEX) 0.* 150 * 0 03/23/2018 018 Route: MUCOUS MEMBRANE (TOPICAL MOUTH AND THROAT) Sig: Use 15 mL as instructed twice daily. Patient not taking: Reported on 04/18/2018 Disc: Discontinued by another Health Care Provider Encounter Status:Closed by MODESTA MEJÍA CNP on 04/18/18 sed rate - shar on 2018-04-15 Sed Rate 57 0-20 mm/hr High 04-15-2018 [facility] ([id number]) Comment: Performed By: #### ESR #### [facility] [address] [place] [address] cbc with diff on 20 18-06-29 Basophils #/vol (Bld) 0.0 0.0-0.1 x(10)3/cumm Normal 2017 [facility] ( [id number]) Comment: Performed By: #### CBCDIFF # ### [facility] [address] [place] [address]3567 Basophils/100 WBC (Bld) 0.6 0.0-1.0 % Normal 2017 [facility] ([id number]) Comment: Performed By: #### CBCDIFF # ### [facility] [address] [place] [address]407 Eosinophils #/vol (Bld) 0.1 0.0-0.4 x(10)3/cumm Normal 03-19 [facility] ( [id number]) Comment: Performed By: #### CBCDIFF # ### [facility] [address] [place] [address]303 Eosinophils/100 WBC (Bld) 2.2 0.0-6.1 % Normal 03-19 [facility] ([id number]) Comment: Performed By: #### CBCDIFF # ### [facility] [address] [place] [address] 53333 Erythrocyte distribution 14.7 11.1-15.3 % Normal 04-15 [facility] width Ratio (RBC) [facility] (51491) Comment: Performed By: #### CBCDIFF # ### [facility] [address] [place] [address] 40887 Hematocrit Volume Fraction 35.2 34.6-45.0 % Normal [facility] ([facility]) (56980) Comment: Performed By: #### CBCDIFF # ### [facility] [place] [address] [place] [address] 66486 Hemoglobin mass conc 11.8 11.5-15.5 gm/dL Normal [facility] ([facility] ( 61359) Comment: Performed By: #### CBCDIFF # ### [facility] [address] [place] [address] 04314 Lymphocytes #/vol (Bld) 0.3 0.8-2.9 x(10)3/cumm Low 03-19 [facility] ( 75802) Comment: Performed By: #### CBCDIFF # ### [facility] [address] [place] [address] 07809 Lymphocytes/100 WBC (Bld) 9.3 12.2-42.6 % Low 03-19 [facility] (96469) Comment: Performed By: #### CBCDIFF # ### [facility] [address] [place] [address] 46005 MCH Entitic mass (RBC) 28.9 27.2-33.6 pg Normal 018 [facility] ([id number]) Comment: Performed By: #### CBCDIFF # ### [facility] [address] [place] [address] 22676 MCHC mass conc (RBC) 33.6 32.9-35.3 gm/dL Normal 8 [facility] (61141) Comment: Performed By: #### CBCDIFF # ### [facility] [address] [place] [address] 20833 MCV Entitic volume (RBC) 86.2 81.3-96.7 fL Normal 04-15 [facility] (79526) Comment: Performed By: #### CBCDIFF # ### [facility] [address] [place] [address] 08188 Monocytes #/vol (Bld) 0.2 0.2-0.8 x(10)3/cumm Normal 2017 [facility] ( 34712) Comment: Performed By: #### CBCDIFF # ### [facility] [address] [place] [address] 49897 Monocytes/100 WBC (Bld) 5.4 3.3-11.6 % Normal 2017 [facility] (00232) Comment: Performed By: #### CBCDIFF # ### [facility] [address] [place] [address] 12544 Neutrophils #/vol (Bld) 2.9 1.3-7.4 x(10)3/cumm Normal 03-19 [facility] ( 51602) Comment: Performed By: #### CBCDIFF # ### [facility] [address] [place] [address] 19055 Platelet mean volume 12.0 6.4-10.0 fL High 8 [facility] Entitic volume (d) (58773) Comment: Performed By: #### CBCDIFF # ### [facility] [address] [place] [address] 69546 Platelets #/vol 23 138-367 x(10)3/cumm Critically low 018 [facility] ( 29191) Comment: Performed By: #### CBCDIFF # ### [facility] [address] [place] [address] 01932 Plt Morph enlarged and giant plts, Normal 04-15 [facility] severe decrease (000 00) Comment: Performed By: #### CBCDIFF # ### [facility] [address] [place] [address] 37143 RBC #/vol (Bld) 4.08 3.90-5.10 X(10)6/cumm Normal 04-15-2018 [facility] ([id number]) Comment: Performed By: #### CBCDIFF # ### [facility] [address] [place] [address] 74727 RBC Morph cont Normal 04-15-2018 [facility] (74057) Comment: Performed By: #### CBCDIFF # ### [facility] [address] [place] [address] 27964 RBC morphology finding Nom normal Normal [facility] ([facility]) (18837) Comment: Performed By: #### CBCDIFF # ### [facility] [address] [place] [address] 44066 Segmented neutrophils/100 WBC 82.5 44.9-78.8 % High 04-15-2018 [facility] ([facility] ( 32802) Comment: Performed By: #### CBCDIFF # ### [facility] [address] [place] [address] 91573 WBC #/vol (Bld) 3.5 3.6-10.3 x(10)3/cumm Low 04-15-2018 [facility] ([id number]) Comment: Performed By: #### CBCDIFF # ### [facility] [address] [place] [address] 96454 WBC Morph lymphopenia Normal 04-15-2018 [facility] (98839) Comment: Performed By: #### CBCDIFF # ### [facility] [address] [place] [address] 36458 c-reactive protein on 2018-04-15 CRP mass conc 7.08 <=2.99 mg/L High 04-15-2018 [facility] (47858) Comment: Performed By: #### CRPR #### [facility] [address] [place] [address]451 cfungb on 2018-03-18 3 CFUNGB . MICRO - MicrobiologyPROCEDURE: Normal 03-30-2018 [facility] Blood Culture (bacterial [facility] ([place]) and ([id number]) fungal) [*1]SOURCE: Blood BODY SITE:COLLECTED DATE/TIME: 03/02/2018 15:09 EDT RECEIVED DATE/TIME: 03/02/2018 23:22 EDTSTART DATE/TIME: 03/02/2018 23:22 EDT FREE TEXT SOURCE:FINAL REPORTSFinal Report []Verified Date/Time/Personnel: 03/30/2018 09:01 EDTBlood Culture with fungus: No growth at 4 weeks.PRELIMINARY REPORTSPreliminary Report []Verified Date/Time/Personnel: 03/02/2018 23:59 EDTCulture has been received in lab and is no growth to date. Culture will be held for four weeks.Performing Locations*1: This test was performed at: [facility], [address] [place], [place], [address] [place] [address] Comment: Performed By: #### LAC, CBC, ADIFF, ANEU, LD, MG, URIC, BMP, GFR ####[facility] [place] [address] us head/neck soft tissue on 2018-03-15 US HEAD/NECK SOFT ORIGINALUS HEAD/NECK SOFT Normal 03-15-2018 [facility] TISSUE TISSUE CLINICAL Foun dation ([place]) STATEMENT: assess and ([id number]) possible removal of drain. COMPARISON: Ultrasound drainage of a soft tissue fluid collection 03/01/2018 FINDINGS: Focused images in the region of interest in the left neck where the drain is located demonstrate a small residual fluid collection measuring 1.4 x 1.8 cm, which is decreased in size from the initial drain placement. Based on this decrease sized and decreased drainage from the catheter the decision was made to remove the catheter. IMPRESSION: Removal of a drain previously placed with ultrasound guidance. Interpreted By: Rashmi Palumboreliminary Report By: Rashmi Palumbo MDElectronically Signed By: Rashmi Palumbo MD Dictated Date: 03/15/2018 8:49:14 AM Prelim Date: 03/15/2018 8:49:14 AM Sign Date: 03/15/2018 8:53:10 AM cbl on 2018-03-10 CBL . MICRO - MicrobiologyPROCEDURE: Normal 03-10-2018 [facility] Blood Culture ACCESSION: [facility] ([place]) ([id number]) [id number] (bacterial) [*1]SOURCE: Blood BODY SITE:COLLECTED DATE/TIME: 03/01/2018 01:15 EDT RECEIVED DATE/TIME: 03/01/2018 01:50 EDTSTART DATE/TIME: 03/01/2018 01:51 EDT FREE TEXT SOURCE:FINAL REPORTSFinal Report []Verified Date/Time/Personnel: 03/10/2018 08:23 EDTBacillus species, not B. anthracisSensitivity testing is not recommended for one of thefollowing reasons: 1. Established susceptibilitypatterns are available or 2. Interpretativecriteria are not available.Isolated from aerobe bottle only.Organism is a potential contaminant.Clinical Significance undetermined.Please contact Microbiology if further work-up is required.PRELIMINARY REPORTSPreliminary Report []Verified Date/Time/Personnel: 03/03/2018 10:50 EDTBacillus species, not B. anthracisSensitivity testing is not recommended for one of thefollowing reasons: 1. Established susceptibilitypatterns are available or 2. Interpretativecriteria are not available.Isolated from aerobe bottle only.Organism is a potential contaminant.Clinical Significance undetermined.Please contact Microbiology if further work-up is required.Preliminary Report []Verified Date/Time/Personnel: 03/01/2018 02:59 EDTCulture has been received in lab and is no growth to date. Routine cultures are held for 5 days.STAINSGSAER []Verified Date/Time/Personnel: 03/02/2018 09:50 EDTGram Positive RodsPerforming Locations*1: This test was performed at: [address], [address] [place] [address] Comment: Performed By: #### CBL ####[place] [address] cbl on 2018-03-08 CBL . MICRO - MicrobiologyPROCEDURE: Normal 03-08-2018 [facility] Blood Culture ACCESSION: [facility] [place]) ([id number]) [id number] (bacterial) [*1]SOURCE: Blood BODY SITE:COLLECTED DATE/TIME: 03/02/2018 15:09 EDT RECEIVED DATE/TIME: 03/02/2018 23:22 EDTSTART DATE/TIME: 03/02/2018 23:22 EDT FREE TEXT SOURCE:FINAL REPORTSFinal Report []Verified Date/Time/Personnel: 03/07/2018 23:59 EDTBlood Culture: No Growth at 5 days.PRELIMINARY REPORTSPreliminary Report []Verified Date/Time/Personnel: 03/02/2018 23:59 EDTCulture has been received in lab and is no growth to date. Routine cultures are held for 5 days.Performing Locations*1: This test was performed at: [address], [address] [place] [address] Comment: Performed By: #### LAC, CBC, ADIFF, ANEU, LD, MG, URIC, BMP, GFR ####[place] [address] cbl on 2018-03-06 CBL . MICRO - MicrobiologyPROCEDURE: Normal 03-06-2018 [facility] Blood Culture ACCESSION: [facility] [place]) ([id number]) [id number] (bacterial) [*1]SOURCE: Blood BODY SITE:COLLECTED DATE/TIME: 03/01/2018 01:15 EDT RECEIVED DATE/TIME: 03/01/2018 01:50 EDTSTART DATE/TIME: 03/01/2018 01:51 EDT FREE TEXT SOURCE:FINAL REPORTSFinal Report []Verified Date/Time/Personnel: 03/06/2018 01:59 EDTBlood Culture: No Growth at 5 days.PRELIMINARY REPORTSPreliminary Report []Verified Date/Time/Personnel: 03/01/2018 02:59 EDTCulture has been received in lab and is no growth to date. Routine cultures are held for 5 days.Performing Locations*1: This test was performed at: [facility], [address] [place] [address], [address] [place] [address] Comment: Performed By: #### CBL ####[place] [address] cwdp on 2018-03-05 CWDP . MICRO - MicrobiologyPROCEDURE: Normal 03-05-2018 [facility] Culture Wound Deep ACCESSION: [facility] ([place]) [id number] Aerobe/Anaerobe w Gram ([id number]) Stain [*1]SOURCE: Wound (deep) BODY SITE: NeckCOLLECTED DATE/TIME: 03/01/2018 13:40 EDT RECEIVED DATE/TIME: 03/01/2018 15:03 EDTSTART DATE/TIME: 03/01/2018 15:05 EDT FREE TEXT SOURCE: LT NECK MASSFINAL REPORTSFinal Report []Verified Date/Time/Personnel: 03/05/2018 11:34 EDTLight Group A Beta Hemolytic Strep (Strep pyogenes)Sensitivity testing is not recommended for one of thefollowing reasons: 1. Established susceptibilitypatterns are available or 2. Interpretativecriteria are not available.No anaerobes isolated at 96 hours.PRELIMINARY REPORTSPreliminary Report []Verified Date/Time/Personnel: 03/03/2018 10:42 EDTLight Group A Beta Hemolytic Strep (Strep pyogenes)Sensitivity testing is not recommended for one of thefollowing reasons: 1. Established susceptibilitypatterns are available or 2. Interpretativecriteria are not available.No anaerobes isolated to date.Preliminary Report []Verified Date/Time/Personnel: 03/02/2018 09:48 EDTLight Group A Beta Hemolytic Strep (Strep pyogenes)Sensitivity testing is not recommended for one of thefollowing reasons: 1. Established susceptibilitypatterns are available or 2. Interpretativecriteria are not available.STAINSGS []Verified Date/Time/Personnel: 03/01/2018 19:35 EDT2+ Polymorphonuclear cells2+ Mononuclear cells1+ Gram Positive CocciPerforming Locations*1: This test was performed at: [address], [address] [place] [address] Comment: Performed By: #### CWDP #### [address] [address] oncology progress note on 2018-03-04 Protein Normal 03-04-2018 [facility]) ([id number]) inpatient patient summary on 2018-03-04 Inpatient Patient Summary Normal 02-15 [facility]) ([id number]) infectious disease progress note on 2018-03-04 Protein Normal 03-04-2018 [facility]) ([id number]) hiv on 2018-03-04 HIV 1/2 Ab Negative Normal 03-04-2018 [facility]) (45857) Comment: Result Comment: NegativeSpec imen is negative for anti-HIV-1 and anti-HIV-2. Performed By: #### LAC, CBC, ADIFF, ANEU, LD, MG, URIC, BMP, GFR ####[address] [address] hit on 2018-03-04 % Inhibition Not calculated Normal 03-04-2018 [facility] [facility], [facility] ([place]) ([id number]) Comment: Result Comment: Performed By :[facility] [place], [place] [address]Dqz Di mary: Cydney Puckett M.D.CLIA#: [id number]#: Performed By: #### LAC, CBC, ADIFF, ANEU, LD, MG, URIC, BMP, GFR ####[address] [address] Anti-PF4 Review Test Not Indicated Normal 03-04 [facility] ([place]) (0000 0) Comment: Result Comment: Performed By :[address] [address]Dzd Di mary: Cydney Puckett M.D.CLIA#: [id number]#: Performed By: #### LAC, CBC, ADIFF, ANEU, LD, MG, URIC, BMP, GFR ####[place] [address] Plas+PF4 Hi Dose Hep 0.167 Normal 8 [facility] ([place]) ([id number]) Comment: Result Comment: Performed By :[address] [address]Wmh Di mary: Cydney Puckett M.D.CLIA#: [id number]#: Performed By: #### LAC, CBC, ADIFF, ANEU, LD, MG, URIC, BMP, GFR ####[address] [address] Plasma+PF4 Complex 0.201 Normal 03-04-2018 [facility] ([place]) ([id number]) Comment: Result Comment: OD < 0.400 i s negativePerformed By:[address] [address]Ztv Director: Cydney Puckett M.D.CLIA#: [id number]#: Performed By: #### LAC, CBC, ADIFF, ANEU, LD, MG, URIC, BMP, GFR ####[address] [address] Plt Interpretation Negative Normal 03-04-2018 [facility] ([place]) ([id number]) Comment: Result Comment: No anti-plat elet factor 4 IgG antibody is detected by CONCHIS assay.Heparin-induced thromb ocytopenia (HIT) is unlikely, but should be excluded based on clinical f actors.Performed By:[facility] [place], [place] [address]Kjy Director: SARTHAK Garcia#: [id number]#: Performed By: #### LAC, CBC, ADIFF, ANEU, LD, MG, URIC, BMP, GFR ####[place] [address] discharge summary o n 2018-03-04 Discharge Summary Normal 03-04-2018 [facility], [facility] ([place]) ([id number]) depart summary on Depart Summary Normal 03-04-2018 [facility]) ([id number]) cre on 2018-03-04 Creatinine 0.52 0.50-1.20 mg/dL Normal 03-04-2018 [facility]) ([id number]) Comment: Performed By: #### LAC, CBC, ADIFF, ANEU, LD, MG, URIC, BMP, GFR ####[address] [address] cbc on 2018-03-04 Erythrocyte distribution 12.9 11.5-15.5 % Normal 03-04 [facility] Auto Ratio (RBC) [facility] ([place]) ([id number]) Comment: Performed By: #### LAC, CBC, ADIFF, ANEU, LD, MG, URIC, BMP, GFR ####[place] [address] Erythrocytes (RBC) 3.45 4.10-5.30 10 6/mcL Low 03-04-2018 [facility] ([place]) (0000 0) Comment: Performed By: #### LAC, CBC, ADIFF, ANEU, LD, MG, URIC, BMP, GFR ####[address] [address] Hematocrit (HCT) 29.6 34.0-46.0 % Low 03-04-2018 [facility] ([place]) ([id number]) Comment: Performed By: #### LAC, CBC, ADIFF, ANEU, LD, MG, URIC, BMP, GFR ####[place] [address] Hemoglobin mass conc 10.1 12.0-16.0 G/dL Low 8 [facility] (d) ([place]) (0000 0) Comment: Performed By: #### LAC, CBC, ADIFF, ANEU, LD, MG, URIC, BMP, GFR ####[place] [address] MCH 29.2 27.0-33.0 pg Normal 03-04-2018 [facility] ([place]) ([id number]) Comment: Performed By: #### LAC, CBC, ADIFF, ANEU, LD, MG, URIC, BMP, GFR ####[place] [address] MCHC mass conc (RBC) 34.0 32.0-36.0 G/dL Normal 8 [facility] ([place]) (0000 0) Comment: Performed By: #### LAC, CBC, ADIFF, ANEU, LD, MG, URIC, BMP, GFR ####[place] [address] MCV 86.0 80.0-99.0 fL Normal 03-04-2018 [facility] ([place]) ([id number]) Comment: Performed By: #### LAC, CBC, ADIFF, ANEU, LD, MG, URIC, BMP, GFR ####[place] [address] Platelet mean volume 10.7 6.6-10.5 fL High 8 [facility] ([place]) ([place]) (0000 0) Comment: Performed By: #### LAC, CBC, ADIFF, ANEU, LD, MG, URIC, BMP, GFR ####[place] [address] Platelets 113 150-450 10 3/mcL Low 03-04-2018 [facility] ([place]) ([id number]) Comment: Performed By: #### LAC, CBC, ADIFF, ANEU, LD, MG, URIC, BMP, GFR ####[address] [address] WBC (Leukocytes) 3.30 4.50-10.80 10 3/mcL Low 03-04-2018 A [facility] ([place]) (0000 0) Comment: Performed By: #### LAC, CBC, ADIFF, ANEU, LD, MG, URIC, BMP, GFR ####[place] [address] bun on 2018-03-04 Urea nitrogen 9.0 8.0-22.0 mg/dL Normal 03-04-2018 [facility] ([place]) ([id number]) Comment: Performed By: #### LAC, CBC, ADIFF, ANEU, LD, MG, URIC, BMP, GFR ####[place] [address] .neuabs on Neutrophil, Absolute 2.70 2.25-8.10 10 3/mcL Normal 8 [facility] ([place]) ([id number]) Comment: Performed By: #### LAC, CBC, ADIFF, ANEU, LD, MG, URIC, BMP, GFR ####[place] [address] .morph on 2018-02-15 8 Erythrocyte morphology Normal Normal 018 [facility] ([place]) ([id number]) Comment: Performed By: #### LAC, CBC, ADIFF, ANEU, LD, MG, URIC, BMP, GFR ####[place] [address] Platelets Slt Decreased Normal 03-04-2018 [facility] ([place]) ([id number]) Comment: Performed By: #### LAC, CBC, ADIFF, ANEU, LD, MG, URIC, BMP, GFR ####[address] [address] .gfr on 2018-03-04 GFR Non- >60 Normal 03-04 [facility] ([place]) ([id number]) Comment: Result Comment: GFR Populati on mean for , Non- Americans Ages 20-29 = 116 m L/min/1.73 sq.m. Ages 30-39 = 107 mL/min/1.73 sq.m. Ages 40-49 = 99 mL/min /1.73 sq.m. Ages 50-59 = 93 mL/min/1.73 sq.m. Ages 60-69 = 85 mL/min/1.73 sq.m. Ages 70+ = 75 mL/min/1.73 sq.m.Chronic Kidney Disease: Less than 60 mL/min/1.73 square metersEnd Stage Renal Disease: Less than 15 mL/min /1.73 square meters Performed By: #### LAC, CBC, ADIFF, ANEU, LD, MG, URIC, BMP, GFR ####[place] [id number] [place] [address] GFR >60 Normal 8 [facility] ([place]) ([id number]) Comment: Result Comment: GFR Populati on mean for , Non- Americans Ages 20-29 = 116 m L/min/1.73 sq.m. Ages 30-39 = 107 mL/min/1.73 sq.m. Ages 40-49 = 99 mL/min /1.73 sq.m. Ages 50-59 = 93 mL/min/1.73 sq.m. Ages 60-69 = 85 mL/min/1.73 sq.m. Ages 70+ = 75 mL/min/1.73 sq.m.Chronic Kidney Disease: Less than 60 mL/min/1.73 square metersEnd Stage Renal Disease: Less than 15 mL/min /1.73 square meters Performed By: #### LAC, CBC, ADIFF, ANEU, LD, MG, URIC, BMP, GFR ####[address] [address] .auto diff on 03-04 Basophils Auto #/vol 0.00 0.00-0.27 10 3/mcL Normal 8 [facility] ([facility]) [facility] ([place]) ([id number]) Comment: Performed By: #### LAC, CBC, ADIFF, ANEU, LD, MG, URIC, BMP, GFR ####[address] [address] Basophils/100 WBC Auto (Bld) 0.2 0.0-2.5 % Normal 0 03-04-2018 [facility] ([place]) (0000 0) Comment: Performed By: #### LAC, CBC, ADIFF, ANEU, LD, MG, URIC, BMP, GFR ####[address] [address] Eosinophils 0.00 0.00-0.65 10 3/[facility] Normal 03-04-2018 [facility] ([place]) ([id number]) Comment: Performed By: #### LAC, CBC, ADIFF, ANEU, LD, MG, URIC, BMP, GFR ####[address] [address] Eosinophils/100 leukocytes 0.0 0.0-6.0 % Normal [facility] ([place]) (0000 0) Comment: Performed By: #### LAC, CBC, ADIFF, ANEU, LD, MG, URIC, BMP, GFR ####[address] [address] Lymphocytes 0.30 0.90-4.32 10 3/mcL Low 03-04-2018 [facility] ([place]) ([id number]) Comment: Performed By: #### LAC, CBC, ADIFF, ANEU, LD, MG, URIC, BMP, GFR ####[address] [address] Lymphocytes/100 leukocytes 9.5 20.0-40.0 % Low [facility] ([place]) (0000 0) Comment: Performed By: #### LAC, CBC, ADIFF, ANEU, LD, MG, URIC, BMP, GFR ####[address] [address] Monocytes 0.30 0.09-1.40 10 3/[facility] Normal 03-04-2018 [facility] ([place]) ([id number]) Comment: Performed By: #### LAC, CBC, ADIFF, ANEU, LD, MG, URIC, BMP, GFR ####[address] [address] Monocytes/100 leukocytes 10.1 2.0-13.0 % Normal 03-04 [facility]) (0000 0) Comment: Performed By: #### LAC, CBC, ADIFF, ANEU, LD, MG, URIC, BMP, GFR ####[place] [address] Neutrophils/100 WBC Auto 80.2 50.0-75.0 % High 03-04 [facility] ([facility]) [facility]) ([id number]) Comment: Performed By: #### LAC, CBC, ADIFF, ANEU, LD, MG, URIC, BMP, GFR ####[place] [address] vanct on 2018-03-03 LDose Vancomycin:(trough) See eMAR Normal 02-15 [facility]) (0000 0) Comment: Performed By: #### LAC, CBC, ADIFF, ANEU, LD, MG, URIC, BMP, GFR ####[place] [address] Vancomycin Tr 12.3 5.0-20.0 mcg/mL Normal 03-03-2018 [facility]) ([id number]) Comment: Performed By: #### LAC, CBC, ADIFF, ANEU, LD, MG, URIC, BMP, GFR ####[place] [address] oncology progress note on 2018-03-03 Protein Normal 03-03-2018 [facility]) ([id number]) infectious disease progress note on 2018-03-03 Protein Normal 03-03-2018 [facility]) ([id number]) hospitalist progress note on 2018-03-03 Protein Normal 03-03-2018 [facility]) (65042) fe on 2018-03-03 Iron 69 37-170 mcg/dL Normal 03-03-2018 [facility]) ([id number]) Comment: Performed By: #### LAC, CBC, ADIFF, ANEU, LD, MG, URIC, BMP, GFR ####[place] [address] echocardiogram, adult on 2018-03-03 Echocardiogram, Adult Normal 03-03-20 18 [facility]) ([id number]) ct thorax w/ contrast on 2018-03-03 CT THORAX W/ ORIGINALCT THORAX W/ Normal 2017 [facility] CONTRAST CONTRAST (IV contrast) [facility] ([place]) Clinical information: NECK ([id number]) MASS ABSCESS Comparison: [facility] 02/28/2018 This exam was performed according to our departmental dose optimization program, and includes the following measures where applicable: automated exposure control, adjustment of the mAs and/or kVp according to patient size and/or exam, and an iterative reconstruction algorithm. The chest wall is intact. Drainage catheter in the left supraclavicular fossa is incompletely imaged. There is moderate improvement of inflammatory change in the left upper chest. The pleural margins are smooth without evidence of effusion or thickening. No axillary adenopathy is identified. No mediastinal mass or hilar adenopathy is seen. The heart is normal in size. No pericardial thickening or effusion is seen. The esophagus is normal in course and caliber. Lungs are clear and well expanded. No infiltrate, mass, or atelectasis is present. IMPRESSION:Resolving inflammatory changes in the left upper chest. Interpreted By: Azam Lunareliminary Report By: Azam Luna MDElectronically Signed By: Azam Luna MD Dictated Date: 03/03/2018 3:49:54 PM Prelim Date: 03/03/2018 3:49:54 PM Sign Date: 03/03/2018 3:54:[address] soft tissue neck w/ contrast on 2018-03-03 CT SO[address] TISSUE ORIGINALNeck CT, Normal 03-03-20 18 [facility] NECK W/ CONTRAST 03/03/2018 1:03 PM [facility] ([place]) INDICATION: neck abscess ([id number]) COMPARISON: Outside CT 3 days previously TECHNIQUE: Axial CT of the neck following uncomplicated administration of intravenous contrast, with coronal reformats. This exam was performed according to our departmental dose optimization program, and includes the following measures where applicable: automated exposure control, adjustment of the mAs and/or kVp according to patient size and/or exam, and an iterative reconstruction algorithm. FINDINGS: There is a pigtail catheter in the LEFT supraclavicular region. There is infiltration of the subcutaneous fat, incompletely visualized here. No discrete fluid collection is seen. Otherwise, there is no lymphadenopathy in the more superior neck, and no soft tissue masses. The major salivary glands and the thyroid gland are unremarkable in appearance. The airway is midline and symmetric. The major vascular structures are patent. The visualized portion of the base of brain is unremarkable in appearance. The lung apices are clear. IMPRESSION: Old pigtail catheter placement with decreased LEFT supraclavicular fluid collection. Interpreted By: Shimon Maherreliminary Report By: Shimon Maher MDElectronically Signed By: Shimon Maher MD Dictated Date: 03/03/2018 1:07:20 PM Prelim Date: 03/03/2018 1:07:20 PM Sign Date: 03/03/2018 1:09:[address] abdomen/pelvis w/contrast on 2018-03-03 CT ABDOMEN/PELVIS ORIGINALCT ABDOMEN/PELVIS Normal 03-03-2018 [employer] W/CONTRAST W/CONTRAST (IV contrast) [facility] ([place]) Clinical information: NECK (95482) MASS Comparison: None. This exam was performed according to our departmental dose optimization program, and includes the following measures where applicable: automated exposure control, adjustment of the mAs and/or kVp according to patient size and/or exam, and an iterative reconstruction algorithm. The liver is normal in size and attenuation. No focal mass, diffuse change, or biliary duct dilatation is seen. The spleen and pancreas are normal in appearance. Gallbladder is surgically absent. The adrenal glands are normal in configuration. The kidneys are functioning and show no mass or hydronephrosis. No retroperitoneal mass or adenopathy is present. The urinary bladder is unremarkable. Uterus and adnexa appear normal with a dominant follicle in the right ovary. No pelvic mass or free fluid is identified. There is no abnormality of the stomach, small or large bowel. Mild levocurvature of the lumbar spine is present. Chest findings are reported separately. IMPRESSION:Negative CT examination of the abdomen and pelvis. No acute process. Interpreted By: Azam Luna MDPreliminary Report By: Azam Luna MDElectronically Signed By: Azam Luna MD Dictated Date: 03/03/2018 3:54:33 PM Prelim Date: 03/03/2018 3:54:33 PM Sign Date: 03/03/2018 3:56:52 PM cbc on 2018-03-03 Erythrocyte distribution 12.9 11.5-15.5 % Normal 03-03 [facility] width Auto Ratio (RBC) [facility] ([place]) ([id number]) Comment: Performed By: #### LAC, CBC, ADIFF, ANEU, LD, MG, URIC, BMP, GFR ####[place] [address] Erythrocytes (RBC) 3.80 4.10-5.30 10 6/mcL Low 03-03-2018 [facility] ([place]) (0000 0) Comment: Performed By: #### LAC, CBC, ADIFF, ANEU, LD, MG, URIC, BMP, GFR ####[place] [address] Hematocrit (HCT) 32.6 34.0-46.0 % Low 03-03-2018 [facility] ([place]) ([id number]) Comment: Performed By: #### LAC, CBC, ADIFF, ANEU, LD, MG, URIC, BMP, GFR ####[place] [address] Hemoglobin mass conc 10.9 12.0-16.0 G/dL Low [address] [place] [address] ([facility]) ([place]) (0000 0) Comment: Performed By: #### LAC, CBC, ADIFF, ANEU, LD, MG, URIC, BMP, GFR ####[place] [address] MCH 28.6 27.0-33.0 pg Normal 03-03-2018 [facility] ([place]) ([id number]) Comment: Performed By: #### LAC, CBC, ADIFF, ANEU, LD, MG, URIC, BMP, GFR ####[place] [address] MCHC mass conc (RBC) 33.3 32.0-36.0 G/dL Normal 8 [facility] ([place]) (0000 0) Comment: Performed By: #### LAC, CBC, ADIFF, ANEU, LD, MG, URIC, BMP, GFR ####[place] [address] MCV 85.9 80.0-99.0 fL Normal 03-03-2018 [facility] ([place]) ([id number]) Comment: Performed By: #### LAC, CBC, ADIFF, ANEU, LD, MG, URIC, BMP, GFR ####[address] [address] Platelet mean volume 10.4 6.6-10.5 fL Normal 8 [facility] ([facility] ([place]) (0000 0) Comment: Performed By: #### LAC, CBC, ADIFF, ANEU, LD, MG, URIC, BMP, GFR ####[address] [address] Platelets 75 150-450 10 3/[facility] Low 03-03-2018 [facility] ([place]) ([id number]) Comment: Performed By: #### LAC, CBC, ADIFF, ANEU, LD, MG, URIC, BMP, GFR ####[address] [address] WBC (Leukocytes) 3.10 4.50-10.80 10 3/mcL Low 03-03-2018 [facility], [facility] ([place]) (0000 0) Comment: Performed By: #### LAC, CBC, ADIFF, ANEU, LD, MG, URIC, BMP, GFR ####[address] [address] .neuabs on Neutrophil, Absolute 2.80 2.25-8.10 10 3/[facility] Normal 8 [facility] ([place]) ([id number]) Comment: Performed By: #### LAC, CBC, ADIFF, ANEU, LD, MG, URIC, BMP, GFR ####[address] [address] .auto diff on 03-03 Basophils Auto #/vol 0.00 0.00-0.27 10 3/[facility] Normal [address] [place] [address] ([facility]) [facility] ([place]) ([id number]) Comment: Performed By: #### LAC, CBC, ADIFF, ANEU, LD, MG, URIC, BMP, GFR ####[place] [address] Basophils/100 WBC Auto (Bld) 0.2 0.0-2.5 % Normal 0 03-03-2018 [facility] ([place]) (0000 0) Comment: Performed By: #### LAC, CBC, ADIFF, ANEU, LD, MG, URIC, BMP, GFR ####[address] [address] Eosinophils 0.00 0.00-0.65 10 3/[facility] Normal 03-03-2018 [facility] ([place]) ([id number]) Comment: Performed By: #### LAC, CBC, ADIFF, ANEU, LD, MG, URIC, BMP, GFR ####[address] [address] Eosinophils/100 leukocytes 0.4 0.0-6.0 % Normal [facility]) (0000 0) Comment: Performed By: #### LAC, CBC, ADIFF, ANEU, LD, MG, URIC, BMP, GFR ####[address] [address] Lymphocytes 0.20 0.90-4.32 10 3/[facility] Low 03-03-2018 [facility] ([place]) ([id number]) Comment: Performed By: #### LAC, CBC, ADIFF, ANEU, LD, MG, URIC, BMP, GFR ####[address] [address] Lymphocytes/100 leukocytes 7.0 20.0-40.0 % Low [facility] ([place]) (0000 0) Comment: Performed By: #### LAC, CBC, ADIFF, ANEU, LD, MG, URIC, BMP, GFR ####[address] [address] Monocytes 0.10 0.09-1.40 10 3/[facility] Normal 03-03-2018 [facility] ([place]) ([id number]) Comment: Performed By: #### LAC, CBC, ADIFF, ANEU, LD, MG, URIC, BMP, GFR ####[address] [address] Monocytes/100 leukocytes 3.8 2.0-13.0 % Normal 03-03 [facility] (0000 0) Comment: Performed By: #### LAC, CBC, ADIFF, ANEU, LD, MG, URIC, BMP, GFR ####[address] [address] Neutrophils/100 WBC Auto 88.6 50.0-75.0 % High 03-03 [facility] ([facility] ([id number]) Comment: Performed By: #### LAC, CBC, ADIFF, ANEU, LD, MG, URIC, BMP, GFR ####[address] [address] oncology progress note on 2018-03-02 Protein Normal 03-02-2018 [facility] ([id number]) infectious disease consultation on 2018-03-02 Infectious Disease Consultation Normal 03-02-2018 [facility] (0000 0) hospitalist progress note on 2018-03-02 Protein Normal 03-02-2018 [facility] ([id number]) hfp on 2018-03-02 Alanine aminotransferase (ALT) 22 10-49 U/L Normal 03-02-2018 [facility]) ([id number]) Comment: Performed By: #### LAC, CBC, ADIFF, ANEU, LD, MG, URIC, BMP, GFR ####[place] [address] Albumin 2.4 3.2-4.8 G/dL Low 03-02-2018 [facility] ([id number]) Comment: Performed By: #### LAC, CBC, ADIFF, ANEU, LD, MG, URIC, BMP, GFR ####[address] [address] Albumin/Globulin Ratio 0.6 0.9-1.6 ratio Low 018 [facility] (0000 0) Comment: Performed By: #### LAC, CBC, ADIFF, ANEU, LD, MG, URIC, BMP, GFR ####[place] [address] Alk Phos 82 38-126 U/L Normal 03-02-2018 [facility] ([id number]) Comment: Performed By: #### LAC, CBC, ADIFF, ANEU, LD, MG, URIC, BMP, GFR ####[place] [address] Aspartate aminotransferase 34 8-34 U/L Normal [facility] ([facility]) (72231) Comment: Performed By: #### LAC, CBC, ADIFF, ANEU, LD, MG, URIC, BMP, GFR ####[place] [address] Bili Direct 0.2 0.0-0.4 mg/dL Normal 03-02-2018 [facility] ([id number]) Comment: Performed By: #### LAC, CBC, ADIFF, ANEU, LD, MG, URIC, BMP, GFR ####[place] [address] Bili Indirect 0.2 0.1-10.0 mg/dL Normal 03-02-2018 [facility] ([facility] ([id number]) Comment: Performed By: #### LAC, CBC, ADIFF, ANEU, LD, MG, URIC, BMP, GFR ####[place] [address] Bili Total 0.4 0.2-1.2 mg/dL Normal 03-02-2018 [facility] ([id number]) Comment: Performed By: #### LAC, CBC, ADIFF, ANEU, LD, MG, URIC, BMP, GFR ####[place] [address] Globulin 4.2 1.5-3.8 G/dL High 03-02-2018 [facility]) ([id number]) Comment: Performed By: #### LAC, CBC, ADIFF, ANEU, LD, MG, URIC, BMP, GFR ####[place] [address] Protein 6.6 6.0-8.5 G/dL Normal 03-02-2018 [facility]) ([id number]) Comment: Performed By: #### LAC, CBC, ADIFF, ANEU, LD, MG, URIC, BMP, GFR ####[place] [address] ent progress note o n 2018-03-02 Protein Normal 03-02-2018 [facility] ([place]) ([id number]) consultation note o n 2018-03-02 Consultation Note Normal 03-02-2018 A [facility] ([place]) ([id number]) cbc on 2018-03-02 Erythrocyte distribution 13.0 11.5-15.5 % Normal 03-02 [facility] Auto Ratio (RBC) [facility] ([place]) ([id number]) Comment: Performed By: #### CBC, ADIF F, ANEU, CAION, BMP, HFP, GFR ####[place] [address] Erythrocytes (RBC) 3.66 4.10-5.30 10 6/mcL Low 03-02-2018 [facility] ([place]) (0000 0) Comment: Performed By: #### CBC, ADIF F, ANEU, CAION, BMP, HFP, GFR ####[place] [address] Hematocrit (HCT) 31.5 34.0-46.0 % Low 03-02-2018 [facility] ([place]) ([id number]) Comment: Performed By: #### CBC, ADIF F, ANEU, CAION, BMP, HFP, GFR ####[place] [address] Hemoglobin mass conc 10.6 12.0-16.0 G/dL Low 8 [facility] (d) ([place]) (0000 0) Comment: Performed By: #### CBC, ADIF F, ANEU, CAION, BMP, HFP, GFR ####[place] [address] MCH 29.0 27.0-33.0 pg Normal 03-02-2018 [facility] ([place]) ([id number]) Comment: Performed By: #### CBC, ADIF F, ANEU, CAION, BMP, HFP, GFR ####[place] [address] MCHC mass conc (RBC) 33.7 32.0-36.0 G/dL Normal 8 [facility] ([place]) (0000 0) Comment: Performed By: #### CBC, ADIF F, ANEU, CAION, BMP, HFP, GFR ####[place] [address] MCV 86.1 80.0-99.0 fL Normal 03-02-2018 [facility] ([place]) ([id number]) Comment: Performed By: #### CBC, ADIF F, ANEU, CAION, BMP, HFP, GFR ####[place] [address] Platelet mean volume 10.8 6.6-10.5 fL High 8 [facility] ([facility]) ([place]) (0000 0) Comment: Performed By: #### CBC, ADIF F, ANEU, CAION, BMP, HFP, GFR ####[place] [address] Platelets 78 150-450 10 3/mcL Low 03-02-2018 [facility] ([place]) ([id number]) Comment: Performed By: #### CBC, ADIF F, ANEU, CAION, BMP, HFP, GFR ####[place] [address] WBC (Leukocytes) 4.70 4.50-10.80 10 3/mcL Normal 03-02-2018 [facility], [facility] ([place]) (0000 0) Comment: Performed By: #### CBC, ADIF F, ANEU, CAION, BMP, HFP, GFR ####[place] [address] caion on 2018-03-02 Calcium Ionized 1.06 1.12-1.32 mmol/L Low 03-02-2018 [facility] ([place]) ([id number]) Comment: Performed By: #### CBC, ADIF F, ANEU, CAION, BMP, HFP, GFR ####[address] [address] bmp on 2018-03-02 BUN/Creatinine Ratio 10.6 10.0-22.0 ratio Normal 8 [facility]) (0000 0) Comment: Performed By: #### CBC, ADIF F, ANEU, CAION, BMP, HFP, GFR ####[place] [address] Calcium 7.8 8.4-10.1 mg/dL Low 03-02-2018 [facility] ([place]) ([id number]) Comment: Performed By: #### CBC, ADIF F, ANEU, CAION, BMP, HFP, GFR ####[place] [address] Chloride 103 98-110 mEq/L Normal 03-02-2018 [facility]) ([id number]) Comment: Performed By: #### CBC, ADIF F, ANEU, CAION, BMP, HFP, GFR ####[place] [address] CO2 24 22-32 mEq/L Normal 03-02-2018 [facility] ([place]) ([id number]) Comment: Performed By: #### CBC, ADIF F, ANEU, CAION, BMP, HFP, GFR ####[place] [address] Creatinine 0.47 0.50-1.20 mg/dL Low 03-02-2018 [facility] ([place]) ([id number]) Comment: Performed By: #### CBC, ADIF F, ANEU, CAION, BMP, HFP, GFR ####[place] [address] Electrolyte Balance 9.0 4.0-15.0 mEq/L Normal 03-02-2018 [facility] ([place]) (0000 0) Comment: Performed By: #### CBC, ADIF F, ANEU, CAION, BMP, HFP, GFR ####[place] [address] Glucose mass conc 120 70-110 mg/dL High 03-02-2018 [facility], [facility] ([place]) ([id number]) Comment: Performed By: #### CBC, ADIF F, ANEU, CAION, BMP, HFP, GFR ####[place] [id number] [place] [address] Potassium molar conc 4.0 3.5-5.0 mEq/L Normal 8 [facility] ([place]) (0000 0) Comment: Performed By: #### CBC, ADIF F, ANEU, CAION, BMP, HFP, GFR ####[place] [address] Sodium 136 136-145 mEq/L Normal 03-02-2018 [facility]) ([id number]) Comment: Performed By: #### CBC, ADIF F, ANEU, CAION, BMP, HFP, GFR ####[place] [address] Urea nitrogen 5.0 8.0-22.0 mg/dL Low 03-02-2018 [facility] ([place]) (01137) Comment: Performed By: #### CBC, ADIF F, ANEU, CAION, BMP, HFP, GFR ####[address] [address] .neuabs on Neutrophil, Absolute 4.10 2.25-8.10 10 3/mcL Normal 8 [facility] ([place]) ([id number]) Comment: Performed By: #### CBC, ADIF F, ANEU, CAION, BMP, HFP, GFR ####[address] [address] .gfr on 2018-03-02 GFR Non- >60 Normal 03-02 [facility]) ([id number]) Comment: Result Comment: GFR Populati on mean for , Non- Americans Ages 20-29 = 116 m L/min/1.73 sq.m. Ages 30-39 = 107 mL/min/1.73 sq.m. Ages 40-49 = 99 mL/min /1.73 sq.m. Ages 50-59 = 93 mL/min/1.73 sq.m. Ages 60-69 = 85 mL/min/1.73 sq.m. Ages 70+ = 75 mL/min/1.73 sq.m.Chronic Kidney Disease: Less than 60 mL/min/1.73 square metersEnd Stage Renal Disease: Less than 15 mL/min /1.73 square meters Performed By: #### LAC, CBC, ADIFF, ANEU, LD, MG, URIC, BMP, GFR ####[address] [address] GFR >60 Normal 8 [facility] [place]) ([id number]) Comment: Result Comment: GFR Populati on mean for , Non- Americans Ages 20-29 = 116 m L/min/1.73 sq.m. Ages 30-39 = 107 mL/min/1.73 sq.m. Ages 40-49 = 99 mL/min /1.73 sq.m. Ages 50-59 = 93 mL/min/1.73 sq.m. Ages 60-69 = 85 mL/min/1.73 sq.m. Ages 70+ = 75 mL/min/1.73 sq.m.Chronic Kidney Disease: Less than 60 mL/min/1.73 square metersEnd Stage Renal Disease: Less than 15 mL/min /1.73 square meters Performed By: #### LAC, CBC, ADIFF, ANEU, LD, MG, URIC, BMP, GFR ####[address] [address] .auto diff on 03-02 Basophils Auto #/vol 0.00 0.00-0.27 10 3/mcL Normal 8 [facility] ([facility]) [facility] ([place]) ([id number]) Comment: Performed By: #### CBC, ADIF F, ANEU, CAION, BMP, HFP, GFR ####[address] [address] Basophils/100 WBC Auto (d) 0.3 0.0-2.5 % Normal 0 03-02-2018 [facility] [place]) (0000 0) Comment: Performed By: #### CBC, ADIF F, ANEU, CAION, BMP, HFP, GFR ####[address] [place] [address] Eosinophils 0.10 0.00-0.65 10 3/[facility] Normal 03-02-2018 [facility]) ([id number]) Comment: Performed By: #### CBC, ADIF F, ANEU, CAION, BMP, HFP, GFR ####[address] [address] Eosinophils/100 leukocytes 1.2 0.0-6.0 % Normal [facility] [place]) (0000 0) Comment: Performed By: #### CBC, ADIF F, ANEU, CAION, BMP, HFP, GFR ####[address] [address] Lymphocytes 0.20 0.90-4.32 10 3/[facility] Low 03-02-2018 [facility] [place]) ([id number]) Comment: Performed By: #### CBC, ADIF F, ANEU, CAION, BMP, HFP, GFR ####[address] [address] Lymphocytes/100 leukocytes 4.9 20.0-40.0 % Low [facility] ([place]) (0000 0) Comment: Performed By: #### CBC, ADIF F, ANEU, CAION, BMP, HFP, GFR ####[address] [address] Monocytes 0.30 0.09-1.40 10 3/[facility] Normal 03-02-2018 [facility] ([place]) ([id number]) Comment: Performed By: #### CBC, ADIF F, ANEU, CAION, BMP, HFP, GFR ####[address] [address] Monocytes/100 leukocytes 5.7 2.0-13.0 % Normal 03-02 [facility] ([place]) (0000 0) Comment: Performed By: #### CBC, ADIF F, ANEU, CAION, BMP, HFP, GFR ####[address] [address] Neutrophils/100 WBC Auto 87.9 50.0-75.0 % High 03-02 [facility] (d) [facility]) ([id number]) Comment: Performed By: #### CBC, ADIF F, ANEU, CAION, BMP, HFP, GFR ####[place] [id number] [place] [address] us procedure record on 2018-03-01 US Procedure Record Normal 03-01-2018 [facility]) ([id number]) us drainage skin abscess with cath on 2018-03-01 US DRAINAGE SKIN ORIGINALNeck abscess Normal [facility] ABSCESS WITH CATH drainage HISTORY: Neck [facility] ([place]) mass/fluid collection on CT. ([id number]) Patient presents for evaluation. PROCEDURE AND FINDINGS: Informed consent was obtained. The left neck was sterilely prepped and draped. Ultrasound images demonstrated a regular hypoechoic fluid collection in the region of the left lower neck, supraclavicular region and this correlates with mass seen on CT imaging. After the administration of lidocaine for local anesthesia, a 5 [place]ien [place] catheter is advanced into the fluid collection under ultrasound guidance. Purulent material was obtained and submitted for culture and sensitivity. The catheter was exchanged over a wire for 8 Nigerien pigtail drainage catheter. This was connected to suction drainage. Approximately 50 mL of purulent material was obtained. The catheter was in appropriate position on ultrasound imaging. IMPRESSION: Ultrasound-guided left lower neck/supraclavicular abscess successfully drained with 8 Nigerien catheter placement to suction. Purulent material obtained, submitted for culture and sensitivity. Interpreted By: Marshal Melton MDPreliminary Report By: Marshal Melton MDElectronically Signed By: Marshal Melton MD Dictated Date: 03/01/2018 3:26:01 PM Prelim Date: 03/01/2018 3:26:01 PM Sign Date: 03/01/2018 3:29:40 PM uric on 2018-03-01 Uric Acid Lvl 6.0 2.3-6.6 mg/dL Normal 03-01-2018 [facility]) ([id number]) Comment: Performed By: #### LAC, CBC, ADIFF, ANEU, LD, MG, URIC, BMP, GFR ####[place] [id number] [place] [address] mg on 2018-03-01 Magnesium 1.5 1.6-2.4 mg/dL Low 03-01-2018 [facility]) ([id number]) Comment: Performed By: #### LAC, CBC, ADIFF, ANEU, LD, MG, URIC, BMP, GFR ####[place] [address] ldh on 2018-03-01 LDH 150 120-246 U/L Normal 03-01-2018 [facility]) ([id number]) Comment: Performed By: #### LAC, CBC, ADIFF, ANEU, LD, MG, URIC, BMP, GFR ####[place] [address] lac on 2018-03-01 Lactic Acid Lvl 0.7 0.2-2.0 mmol/L Normal 03-01-2018 [facility]) ([id number]) Comment: Performed By: #### LAC, CBC, ADIFF, ANEU, LD, MG, URIC, BMP, GFR ####[place] [address] hospitalist progress note on 2018-03-01 Protein Normal 03-01-2018 [facility]) ([id number]) esr on 2018-03-01 Erythrocyte Sed Rate 87 0-20 mm/hr High 8 [facility]) ([id number]) Comment: Performed By: #### ESR, CRPH S ####[place] [address] crphs on 2018-03-01 CRP, High Sensitive 89.40 0.20-3.00 mg/dL High 03-01-2018 [facility]) (0000 0) Comment: Result Comment: Relative Ris k Category and Average hs-CRP Level:Higher Risk: > 5.0 mg/LGuidelines support that hs-CRP can be used as anindependent predictor of increased coron silvia risk; however,hs-CRP results should only be interpreted in conjunction w ith other cardiac risk factors in establishing overall cardiacrisk for a [facility] patient. Performed By: #### ESR, CRPH S ####[place] [address] cbc on 2018-03-01 Erythrocyte distribution 13.1 11.5-15.5 % Normal 03-01 [facility] Auto Ratio (RBC) [facility] ([place]) ([id number]) Comment: Performed By: #### CBC, ADIF F, ANEU, BMP, GFR ####[place] [address] Erythrocytes (RBC) 3.58 4.10-5.30 10 6/mcL Low 03-01-2018 [facility] [place]) (0000 0) Comment: Performed By: #### CBC, ADIF F, ANEU, BMP, GFR ####[place] [address] Hematocrit (HCT) 30.6 34.0-46.0 % Low 03-01-2018 [facility] ([place]) ([id number]) Comment: Performed By: #### CBC, ADIF F, ANEU, BMP, GFR ####[place] [address] Hemoglobin mass conc 10.4 12.0-16.0 G/dL Low [address] [place] [address] ([facility]) ([place]) (0000 0) Comment: Performed By: #### CBC, ADIF F, ANEU, BMP, GFR ####[place] [address] MCH 29.0 27.0-33.0 pg Normal 03-01-2018 [facility] ([place]) ([id number]) Comment: Performed By: #### CBC, ADIF F, ANEU, BMP, GFR ####[place] [address] MCHC mass conc (RBC) 33.8 32.0-36.0 G/dL Normal 8 [facility] ([place]) (0000 0) Comment: Performed By: #### CBC, ADIF F, ANEU, BMP, GFR ####[place] [address] MCV 85.6 80.0-99.0 fL Normal 03-01-2018 [facility] ([place]) ([id number]) Comment: Performed By: #### CBC, ADIF F, ANEU, BMP, GFR ####[place] [address] Platelet mean volume 11.0 6.6-10.5 fL High 8 [facility] ([facility]) ([place]) (0000 0) Comment: Performed By: #### CBC, ADIF F, ANEU, BMP, GFR ####[place] [address] Platelets 67 150-450 10 3/mcL Low 03-01-2018 [facility] ([place]) ([id number]) Comment: Performed By: #### CBC, ADIF F, ANEU, BMP, GFR ####[place] [address] WBC (Leukocytes) 6.40 4.50-10.80 10 3/mcL Normal 03-01-2018 [facility] ([place]) (0000 0) Comment: Performed By: #### CBC, ADIF F, ANEU, BMP, GFR ####[place] [address] Erythrocyte distribution 13.3 11.5-15.5 % Normal 03-01 [facility] Auto Ratio (RBC) [facility] ([place]) ([id number]) Comment: Performed By: #### LAC, CBC, ADIFF, ANEU, LD, MG, URIC, BMP, GFR ####[place] [address] Erythrocytes (RBC) 3.54 4.10-5.30 10 6/mcL Low 03-01-2018 [facility] [place]) (0000 0) Comment: Performed By: #### LAC, CBC, ADIFF, ANEU, LD, MG, URIC, BMP, GFR ####[place] [address] Hematocrit (HCT) 30.7 34.0-46.0 % Low 03-01-2018 [facility] ([place]) ([id number]) Comment: Performed By: #### LAC, CBC, ADIFF, ANEU, LD, MG, URIC, BMP, GFR ####[place] [address] Hemoglobin mass conc 10.4 12.0-16.0 G/dL Low 8 [facility] ([place]) (0000 0) Comment: Performed By: #### LAC, CBC, ADIFF, ANEU, LD, MG, URIC, BMP, GFR ####[place] [address] MCH 29.4 27.0-33.0 pg Normal 03-01-2018 [facility] ([place]) ([id number]) Comment: Performed By: #### LAC, CBC, ADIFF, ANEU, LD, MG, URIC, BMP, GFR ####[place] [address] MCHC mass conc (RBC) 33.9 32.0-36.0 G/dL Normal 8 [facility] ([place]) (0000 0) Comment: Performed By: #### LAC, CBC, ADIFF, ANEU, LD, MG, URIC, BMP, GFR ####[place] [address] MCV 86.6 80.0-99.0 fL Normal 03-01-2018 [facility] ([place]) ([id number]) Comment: Performed By: #### LAC, CBC, ADIFF, ANEU, LD, MG, URIC, BMP, GFR ####[place] [address] Platelet mean volume 11.2 6.6-10.5 fL High 8 [facility] ([place]) (0000 0) Comment: Performed By: #### LAC, CBC, ADIFF, ANEU, LD, MG, URIC, BMP, GFR ####[place] [address] Platelets 72 150-450 10 3/mcL Low 03-01-2018 [facility] ([place]) ([id number]) Comment: Performed By: #### LAC, CBC, ADIFF, ANEU, LD, MG, URIC, BMP, GFR ####[place] [address] WBC (Leukocytes) 6.60 4.50-10.80 10 3/mcL Normal 03-01-2018 [facility] ([place]) (0000 0) Comment: Performed By: #### LAC, CBC, ADIFF, ANEU, LD, MG, URIC, BMP, GFR ####[address] [address] bmp on 2018-03-01 BUN/Creatinine Ratio 10.5 10.0-22.0 ratio Normal 8 [facility] ([place]) (0000 0) Comment: Performed By: #### CBC, ADIF F, ANEU, BMP, GFR ####[place] [address] Creatinine 0.57 0.50-1.20 mg/dL Normal 03-01-2018 [facility] [place]) ([id number]) Comment: Performed By: #### CBC, ADIF F, ANEU, BMP, GFR ####[place] [address] Calcium 7.6 8.4-10.1 mg/dL Low 03-01-2018 [facility] ([place]) ([id number]) Comment: Performed By: #### CBC, ADIF F, ANEU, BMP, GFR ####[place] [address] Chloride 104 98-110 mEq/L Normal 03-01-2018 [facility] ([place]) ([id number]) Comment: Performed By: #### CBC, ADIF F, ANEU, BMP, GFR ####[place] [address] CO2 24 22-32 mEq/L Normal 03-01-2018 [facility] ([place]) ([id number]) Comment: Performed By: #### CBC, ADIF F, ANEU, BMP, GFR ####[place] [address] Electrolyte Balance 10.0 4.0-15.0 mEq/L Normal 03-01-2018 [facility] [place]) (0000 0) Comment: Performed By: #### CBC, ADIF F, ANEU, BMP, GFR ####[address] [address] Glucose mass conc 113 70-110 mg/dL High 03-01-2018 [facility] ([id number]) Comment: Performed By: #### CBC, ADIF F, ANEU, BMP, GFR ####[place] [address] Potassium molar conc 3.9 3.5-5.0 mEq/L Normal 8 [facility]) (0000 0) Comment: Performed By: #### CBC, ADIF F, ANEU, BMP, GFR ####[place] [address] Sodium 138 136-145 mEq/L Normal 03-01-2018 [facility]) ([id number]) Comment: Performed By: #### CBC, ADIF F, ANEU, BMP, GFR ####[place] [address] Urea nitrogen 6.0 8.0-22.0 mg/dL Low 03-01-2018 [facility] ([place]) ([id number]) Comment: Performed By: #### CBC, ADIF F, ANEU, BMP, GFR ####[place] [address] BUN/Creatinine Ratio 13.8 10.0-22.0 ratio Normal 8 [facility]) (0000 0) Comment: Performed By: #### LAC, CBC, ADIFF, ANEU, LD, MG, URIC, BMP, GFR ####[place] [address] Creatinine 0.58 0.50-1.20 mg/dL Normal 03-01-2018 [facility]) ([id number]) Comment: Performed By: #### LAC, CBC, ADIFF, ANEU, LD, MG, URIC, BMP, GFR ####[place] [address] Calcium 7.6 8.4-10.1 mg/dL Low 03-01-2018 [facility] ([place]) ([id number]) Comment: Performed By: #### LAC, CBC, ADIFF, ANEU, LD, MG, URIC, BMP, GFR ####[place] [address] Chloride 105 98-110 mEq/L Normal 03-01-2018 [facility] ([place]) ([id number]) Comment: Performed By: #### LAC, CBC, ADIFF, ANEU, LD, MG, URIC, BMP, GFR ####[place] [address] CO2 25 22-32 mEq/L Normal 03-01-2018 [facility] ([place]) ([id number]) Comment: Performed By: #### LAC, CBC, ADIFF, ANEU, LD, MG, URIC, BMP, GFR ####[place] [address] Electrolyte Balance 8.0 4.0-15.0 mEq/L Normal 03-01-2018 [facility] ([place]) (0000 0) Comment: Performed By: #### LAC, CBC, ADIFF, ANEU, LD, MG, URIC, BMP, GFR ####[place] [address] Glucose mass conc 116 70-110 mg/dL High 03-01-2018 [facility] ([place]) ([id number]) Comment: Performed By: #### LAC, CBC, ADIFF, ANEU, LD, MG, URIC, BMP, GFR ####[place] [address] Potassium molar conc 3.7 3.5-5.0 mEq/L Normal 8 [facility] ([place]) (0000 0) Comment: Performed By: #### LAC, CBC, ADIFF, ANEU, LD, MG, URIC, BMP, GFR ####[place] [address] Sodium 138 136-145 mEq/L Normal 03-01-2018 [facility] ([place]) ([id number]) Comment: Performed By: #### LAC, CBC, ADIFF, ANEU, LD, MG, URIC, BMP, GFR ####[place] [address] Urea nitrogen 8.0 8.0-22.0 mg/dL Normal 03-01-2018 [facility] ([place]) ([id number]) Comment: Performed By: #### LAC, CBC, ADIFF, ANEU, LD, MG, URIC, BMP, GFR ####[place] [address] .neuabs on Neutrophil, Absolute 5.70 2.25-8.10 10 3/mcL Normal 8 [facility] ([place]) ([id number]) Comment: Performed By: #### CBC, ADIF F, ANEU, BMP, GFR ####[place] [address] Neutrophil, Absolute 5.90 2.25-8.10 10 3/mcL Normal 8 [facility] ([place]) ([id number]) Comment: Performed By: #### LAC, CBC, ADIFF, ANEU, LD, MG, URIC, BMP, GFR ####[place] [address] .gfr on 2018-03-01 GFR >60 Normal 8 [facility] ([place]) ([id number]) Comment: Result Comment: GFR Populati on mean for , Non- Americans Ages 20-29 = 116 m L/min/1.73 sq.m. Ages 30-39 = 107 mL/min/1.73 sq.m. Ages 40-49 = 99 mL/min /1.73 sq.m. Ages 50-59 = 93 mL/min/1.73 sq.m. Ages 60-69 = 85 mL/min/1.73 sq.m. Ages 70+ = 75 mL/min/1.73 sq.m.Chronic Kidney Disease: Less than 60 mL/min/1.73 square metersEnd Stage Renal Disease: Less than 15 mL/min /1.73 square meters Performed By: #### CBC, ADIF F, ANEU, BMP, GFR ####[place] [address] GFR Non- >60 Normal 03-01 [facility] [place]) ([id number]) Comment: Result Comment: GFR Populati on mean for , Non- Americans Ages 20-29 = 116 m L/min/1.73 sq.m. Ages 30-39 = 107 mL/min/1.73 sq.m. Ages 40-49 = 99 mL/min /1.73 sq.m. Ages 50-59 = 93 mL/min/1.73 sq.m. Ages 60-69 = 85 mL/min/1.73 sq.m. Ages 70+ = 75 mL/min/1.73 sq.m.Chronic Kidney Disease: Less than 60 mL/min/1.73 square metersEnd Stage Renal Disease: Less than 15 mL/min /1.73 square meters Performed By: #### CBC, ADIF F, ANEU, BMP, GFR ####[place] [address] [place] [address] GFR Non- >60 Normal 03-01 [facility] ([place]) ([id number]) Comment: Result Comment: GFR Populati on mean for , Non- Americans Ages 20-29 = 116 m L/min/1.73 sq.m. Ages 30-39 = 107 mL/min/1.73 sq.m. Ages 40-49 = 99 mL/min /1.73 sq.m. Ages 50-59 = 93 mL/min/1.73 sq.m. Ages 60-69 = 85 mL/min/1.73 sq.m. Ages 70+ = 75 mL/min/1.73 sq.m.Chronic Kidney Disease: Less than 60 mL/min/1.73 square metersEnd Stage Renal Disease: Less than 15 mL/min /1.73 square meters Performed By: #### LAC, CBC, ADIFF, ANEU, LD, MG, URIC, BMP, GFR ####[place] [address] [place] [address] GFR >60 Normal [facility] [place]) ([id number]) Comment: Result Comment: GFR Populati on mean for , Non- Americans Ages 20-29 = 116 m L/min/1.73 sq.m. Ages 30-39 = 107 mL/min/1.73 sq.m. Ages 40-49 = 99 mL/min /1.73 sq.m. Ages 50-59 = 93 mL/min/1.73 sq.m. Ages 60-69 = 85 mL/min/1.73 sq.m. Ages 70+ = 75 mL/min/1.73 sq.m.Chronic Kidney Disease: Less than 60 mL/min/1.73 square metersEnd Stage Renal Disease: Less than 15 mL/min /1.73 square meters Performed By: #### LAC, CBC, ADIFF, ANEU, LD, MG, URIC, BMP, GFR ####[address] [address] .auto diff on 03-01 Basophils Auto #/vol 0.00 0.00-0.27 10 3/[facility] Normal 8 [facility] ([facility]) [facility] ([place]) ([id number]) Comment: Performed By: #### CBC, ADIF F, ANEU, BMP, GFR ####[place] [address] Basophils/100 WBC Auto (d) 0.2 0.0-2.5 % Normal 0 03-01-2018 [facility] ([place]) (0000 0) Comment: Performed By: #### CBC, ADIF F, ANEU, BMP, GFR ####[address] [address] Eosinophils 0.00 0.00-0.65 10 3/[facility] Normal 03-01-2018 [facility] ([place]) ([id number]) Comment: Performed By: #### CBC, ADIF F, ANEU, BMP, GFR ####[address] [address] Eosinophils/100 leukocytes 0.6 0.0-6.0 % Normal [facility] ([place]) (0000 0) Comment: Performed By: #### CBC, ADIF F, ANEU, BMP, GFR ####[address] [address] Lymphocytes 0.30 0.90-4.32 10 3/mcL Low 03-01-2018 [facility] ([place]) ([id number]) Comment: Performed By: #### CBC, ADIF F, ANEU, BMP, GFR ####[address] [address] Lymphocytes/100 leukocytes 4.6 20.0-40.0 % Low [facility] (0000 0) Comment: Performed By: #### CBC, ADIF F, ANEU, BMP, GFR ####[address] [address] Monocytes 0.40 0.09-1.40 10 3/mcL Normal 03-01-2018 [facility] ([place]) ([id number]) Comment: Performed By: #### CBC, ADIF F, ANEU, BMP, GFR ####[address] [address] Monocytes/100 leukocytes 5.8 2.0-13.0 % Normal 03-01 [facility]) (0000 0) Comment: Performed By: #### CBC, ADIF F, ANEU, BMP, GFR ####[address] [address] Neutrophils/100 WBC Auto 88.8 50.0-75.0 % High 03-01 [facility]) ([id number]) Comment: Performed By: #### CBC, ADIF F, ANEU, BMP, GFR ####[address] [address] Basophils Auto #/vol 0.00 0.00-0.27 10 3/mcL Normal 8 [facility]) ([id number]) Comment: Performed By: #### LAC, CBC, ADIFF, ANEU, LD, MG, URIC, BMP, GFR ####[address] [address] Basophils/100 WBC Auto ([facility]) 0.1 0.0-2.5 % Normal 0 03-01-2018 [facility] ([place]) (0000 0) Comment: Performed By: #### LAC, CBC, ADIFF, ANEU, LD, MG, URIC, BMP, GFR ####[address] [address] Eosinophils 0.00 0.00-0.65 10 3/[facility] Normal 03-01-2018 [facility] ([id number]) Comment: Performed By: #### LAC, CBC, ADIFF, ANEU, LD, MG, URIC, BMP, GFR ####[address] [address] Eosinophils/100 leukocytes 0.6 0.0-6.0 % Normal [facility]) (0000 0) Comment: Performed By: #### LAC, CBC, ADIFF, ANEU, LD, MG, URIC, BMP, GFR ####[address] [address] Lymphocytes 0.30 0.90-4.32 10 3/[facility] Low 03-01-2018 [facility] [place]) ([id number]) Comment: Performed By: #### LAC, CBC, ADIFF, ANEU, LD, MG, URIC, BMP, GFR ####[address] [address] Lymphocytes/100 leukocytes 4.5 20.0-40.0 % Low [facility] ([place]) (0000 0) Comment: Performed By: #### LAC, CBC, ADIFF, ANEU, LD, MG, URIC, BMP, GFR ####[address] [address] Monocytes 0.40 0.09-1.40 10 3/[facility] Normal 03-01-2018 [facility] ([place]) ([id number]) Comment: Performed By: #### LAC, CBC, ADIFF, ANEU, LD, MG, URIC, BMP, GFR ####[address] [address] Monocytes/100 leukocytes 5.4 2.0-13.0 % Normal 03-01 [facility] ([place]) (0000 0) Comment: Performed By: #### LAC, CBC, ADIFF, ANEU, LD, MG, URIC, BMP, GFR ####[address] [address] Neutrophils/100 WBC Auto 89.4 50.0-75.0 % High 03-01 [facility] ([facility]) [facility]) ([id number]) Comment: Performed By: #### LAC, CBC, ADIFF, ANEU, LD, MG, URIC, BMP, GFR ####[facility] [place] [address] history and physical on 2018-02-28 History and Physical Normal 8 [facility]) ([id number]) [place] note on 2017-06-18 [facility] Note Normal 0 06-18-2017 [facility]) ([id number]) patient summary documents on 2017-06-17 Patient Summary Documents Normal 08-3 [facility]) ([id number]) Encounters Date Type Reason Provider Location 06-17-2017 - Emergency [facility] Facility:B 06-17-2017 department patient [facility] visit 02-28-2018 - [facility] [place] [place] Facility: A 03-04-2018 management of MEEL Anibal MICHEL inpatient BERTA NELSON NONE PHYSICIAN SALO PRIETO NEMChristoph SINGH 04-28-2018 Patient encounter NABEEL SANDERS Facility: B NABEEL SANDERS 04-26-2018 - Patient encounter Streptococcal NABEEL SANDERS Facility :B 05-01-2018 pharyngitis NABEEL SANDERS 11-11-2018 - Patient encounter [facility] 11-12-[address] [facility] (0 0000) A ESTEE FELICITA A ESTEE 06-28-2018 - Patient encounter [facility] 06-29-[address] [facility] (0 0000) A ESTEE FELICITA A ESTEE 05-13-2018 - Patient encounter [facility] 05-14-[address] [facility] (0 0000) A ESTEE FELICITA A ESTEE 04-15-2018 - Patient encounter [facility] 04-16-[address] [facility] (0 0000) A ESTEE FELICITA A ESTEE Procedures Procedure Name Date Provider Location Electrocardiogram 05-07-2019 [facility] ([id number]) Payers Payer Name Policy Number Location [facility] [id number] [facility] ([place]) ([id number]) [facility] [id number] [facility] ([id number]) [employer] [id number] [facility] ([place] ([id number]) [id number] [facility] ital ([id number]) [id number] [facility] (70906) [id number] [facility] (89491) [id number] [facility] (07652) The following information is from the original human readable contentNo Payer Records FoundNo Payer Records FoundNo Payer Records FoundNo Payer Records FoundNo Payer Records Found Summary Purpose Family History No Family History Records FoundNo Family History Records FoundNo Family History Records FoundNo Family History Records FoundNo Family History Records Found Advance Directives No Advanced Directives Records FoundNo Advanced Directives Records FoundNo Advanced Directives Records FoundNo Advanced Directives Records FoundNo Advanced Directives Records Found Additional Source Comments FOR RECORDS PERTAINING TO PATIENTS WHO ARE OR HAVE BEEN ENROLLED IN A CHEMICAL DEPENDENCY/SUBSTANCE ABUSE PROGRAM, SOME INFORMATION MAY BE OMITTED. This clinical summary was aggregated from multiple sources. Caution should be exercised in using it in the provision of clinical care. This summary normalizes information from multiple sources, and as a consequence, information in this document may materially changethe coding, format and clinical context of patient data. In addition, data may be omittedin some cases. CLINICAL DECISIONS SHOULD BE BASED ON THE PRIMARY CLINICAL RECORDS. [facility] provides no warranty or guarantee of the accuracy or completeness of information in this document. UNRECOGNIZED CONTENT PROVIDED BELOW FOR UNRECOGNIZED SECTION INFORMATION SOURCE DATE CREATED AUTHOR AUTHOR'S ORGANIZATIO N 05/10/2018 [facility] ([place]) DATE CREATED AUTHOR AUTHOR'S ORGANIZATIO N 12/28/2018 [facility] ital DATE CREATED AUTHOR AUTHOR'S ORGANIZATIO N 03/25/2019 [facility] DATE CREATED AUTHOR AUTHOR'S ORGANIZATIO N 05/08/2019 [facility] DATE CREATED AUTHOR AUTHOR'S ORGANIZATIO N 05/19/2019 [facility]
== END ==
PROVIDERS: Referring Provider Obstetrics & Gynecology; Visit Provider Obstetrics & Gynecology
DX: Z01.818 Encounter for other preprocedural examination (principal)

== ENCOUNTER 2019-02-14 11:12 | Inpatient (IN) | payer OTHER, MEDICAID, SELFPAY ==
[2019-02-14] VITALS (13 sets, daily range): BP systolic 126–157; BP diastolic 91–115; PULSE 104–141; RESP 12–38; TEMP 37–38.7; O2SAT 93–100; BMI 45.7; BMI 45.8
--- NOTE | 2019-02-14 11:25 | EKG12_ITS ---
Test Reason : Blood Pressure : / mmHG Vent. Rate : 112 BPM Atrial Rate : 112 BPM P-R Int : 116 ms QRS Dur : 086 ms QT Int : 322 ms P-R-T Axes : 003 006 030 degrees QTc Int : 439 ms Sinus tachycardia Cannot rule out Inferior infarct , age undetermined Possible Anterior infarct , age undetermined Abnormal ECG Confirmed by CHELSEA TIRADO ([id number]), visual effects editor ELLIE BETTENCOURT ([id number]) on 02/20/2019 2:13:46 PM Referred By: FELY Confirmed By:LUIS TIRADO
--- NOTE | 2019-02-14 11:26 | ED.VIS.GEN ---
History of Present Illness Chief Complaint: Shortness of Breath Informant: Patient Onset: Days Context: Sudden Onset Timing: Intermittent Quality: Cough, shortness of breath documented temperature of 103.0 ?F Location: Respiratory Current Severity: Mild Maximum Severity: Moderate Worsened by: Activity Relieved by: Nothing Associated Symptoms: Fever, chills, cough, FRANCO and sore throat Narrative: Patient is a 33-year-old woman with history of lupus who presents with mild nasal congestion, sore throat, cough, dyspnea and dyspnea on exertion. She denies history of PE or DVT. She denies leg pain, swelling discoloration. She has discoloration of her extremities, which she states is not abnormal for her especially if the weather gets cold. She denies Raynaud phenomenon. She denies discoloration of her digits when it becomes cold. She is on Medication specifically for lupus as well as daily prednisone. She denies joint pain, joint swelling or redness. She states she has mild proteinuria and her branch manager trainee referred her to nephrology. Prior similar symptoms: No Recent Illness/Hospitalization: No - Past Medical History (1) History of systemic lupus erythematosus Status: Acute (2) Leukopenia due to antineoplastic chemotherapy Status: Acute (3) Thrombocytopenia Status: Acute (4) Hypothyroidism Status: Chronic (5) cardiomyopathy Status: Chronic (6) Acute systolic CHF (congestive heart failure) Status: Resolved Past Medical History - Allergies and Home Meds Allergies/Adverse Reactions: Allergies acetaminophen [From Percocet] Allergy (Verified 02/14/19 11:15) Rash amoxicillin Allergy (Verified 02/14/19 11:15) Rash cephalexin [From Keflex] Allergy (Verified 02/14/19 11:27) Rash clindamycin Allergy (Verified 02/14/19 11:27) Rash doxycycline Allergy (Verified 02/14/19 11:15) Hives Iodinated Contrast- Oral and IV Dye [CONTRASTS] Allergy (Verified 02/14/19 11:15) Shortness of breath morphine Allergy (Verified 02/14/19 11:15) Swelling oxycodone Allergy (Verified 02/14/19 11:15) Hives Penicillins Allergy (Verified 02/14/19 11:15) Rash codeine Adverse Reaction (Verified 02/14/19 11:15) Nausea Primary Care Physician: Susanne Sanders DO [Primary Care Provider] - Prior records reviewed: Yes Surgical History: appendectomy, cholecystectomy, - - s/p 2 CS Smoking Status: Never smoker - Family History Maternal Family History: Reports: No pertinent history Paternal Family History: Reports: Unknown Review of Systems General: Reports: Chills, Fever, Malaise, Sweats. Denies: Subjective, Weight loss Eyes: Denies: Visual changes - bilaterally, Blurred Vision - bilaterally, Diplopia ENT: Reports: Sore throat. Denies: Bilateral ear pain, Rhinorrhea Cardiovascular: Denies: Chest pain, Palpitations, Heart racing Respiratory: Reports: Dyspnea, Cough, Dyspnea on exertion. Denies: Orthopnea Gastrointestinal: Denies: Abdominal pain, Nausea, Vomiting, Diarrhea, Melena, Hematochezia Genitourinary: Denies: Dysuria, Hematuria, Frequency Musculoskeletal: Denies: Back pain, Extremity Pain Skin: Reports: Rash Neurological: Denies: Headache, Weakness, Numbness Hematologic: Denies: Easy bruising, Easy bleeding Allergy: Reports: Uticaria - To various medications Physical Exam Vital Signs/Narrative: Vital Signs Temp Pulse Resp BP Pulse Ox 02/14/19 11:13 98.6 F 117 H 20 H 131/104 H 95 Inital Vital Signs reviewed: Yes General: Well nourished, Well developed, Obese, Acute Distress Head: Normocephalic, Atraumatic Eyes: Perrl, EOMI. Negative for: Pale conjunctiva, Scleral icterus, - ENT: Moist mucous membranes, No rhinorrhea, TM's clear Neck: Supple, Nontender. Negative for: No lymphadenopathy, No JVD, - Cardiovascular: Regular rhythm, No murmurs, Normal S1, Normal S2, Tachycardia Respiratory: CTA bilaterally, Chest nontender. Negative for: No distress Abdomen: Soft, Nontender, Nondistended, Normal bowel sounds Back: Nontender, Normal Inspection Extremities: Nontender, No edema, - - There is no asymmetry, swelling, discoloration, leg vein distention, palpable cords or tenderness along the distribution of the deep venous system. Skin: Normal color, Rash - She has a lenticular rash with diminished capillary refill, 3 seconds.. Negative for: Cyanosis, Jaundice Neurological: Alert, Oriented x3, Cranial nerves II-XII grossly intact, Normal Strength, Normal Sensation Psychological: Normal affect, Normal Mood Diagnostic/Tx/Re-eval Chest X-Ray - ED: 2 View, Read by ED Physician, Heart, Mediastinum, - - Limited inspiratory volume and underpenetration, which makes feel difficult to read. There is no effusion or obvious infiltrate. The film is also slightly rotated. There is no cephalization or curly B-lines noted. 02/14/19 12:35 Chest PA and Lateral [RAD] Stat 02/14/19 12:46 CTA Chest W/WO Contrast [CT] Stat Laboratory Results 02/14/19 02/14/19 02/14/19 12:00 12:00 12:00 RBC 3.81 L Hgb 11.0 L Hct 32.5 L MCV 85.3 MCH 28.9 MCHC 33.8 RDW 13.1 RDW Differential 41.0 Plt Count 58 L MPV 13.4 H Immature Gran % (Auto) 1.400 H Neut % (Auto) 31.5 L Lymph % (Auto) 22.9 [place] % (Auto) 41.4 H Eos % (Auto) 1.4 Baso % (Auto) 1.4 H Absolute Neuts (auto) 0.2 L Absolute Lymphs (auto) 0.16 L Sodium 137 Potassium 3.7 Chloride 103 Carbon Dioxide 26.0 Anion Gap 8 BUN 16 Creatinine 0.82 Estim Creat Clear Calc 86.17 Est GFR (MDRD) Af Amer 102 Est GFR (MDRD) Non-Af 84 BUN/Creatinine Ratio 19.5 Glucose 144 H Lactic Acid 1.3 Calcium 8.3 L Radiologist contacted me regarding CTA. CTA reveals left upper lobe pulmonary embolus possible lower lobe infiltrates and large pericardial effusion. The pericardial effusion may be secondary to lupus. Will obtain echo to determine if there is evidence of tamponade. IMPRESSION: Small nonocclusive intraluminal filling defects in the branches of the left upper lobe pulmonary artery. Large pericardial effusion. Left basilar atelectasis and/or infiltrate with a small left effusion. N.B. : The above information has been verbally conveyed by Kyle Almanzar to Valente Dodson MD, on 02/14/2019 14:29:02 (ET). Electronically Signed: Kyle Almanzar, at 14:30 EDT , Service support , - Rhythm Strip Rhythm Strip: Sinus Rhythm Rate: 120 Ectopy: None - EKG Initial EKG Interpretation: Sinus Tachycardia - Ventricular rate is 112. Every 4 hours. NH interval, QRS duration, QT interval and axis are normal. - Medical Decision Making Patient symptoms are consistent with infectious etiology. Will obtain EKG to look for evidence of right heart strain. Chest x-ray to assess for pneumothorax, infiltrate. Blood work was obtained especially BMP to assess renal function since a CTA may be needed. Differential would include bronchitis, pneumonia, pneumothorax, pulmonary embolus. The latter is less likely with temperature 103.0 ?F and complaint of sore throat. With worsening chest pain, shortness of breath and hypoxia in the emergency department and no obvious abnormality on x-ray which has its limitations a CTA of the chest was obtained to evaluate for pulmonary embolus. Patient was not anticoagulated even though there is evidence of a pulmonary embolus in the event that she would require a procedure i.e. pericardiocentesis or window. I was informed at 1545 the patient's temperature was 100.9 ?F. Since she is neutropenic will obtain blood cultures and since there is concern for infiltrate she was treated with 750 mg of levofloxacin. Patient was informed that the fluid collection or help with small formal echocardiogram. She was informed that she does have a blood clot. She was informed there are 3 options. Lovenox and Coumadin versus Xarelto versus Eliquis. After explaining risk benefits of all 3 agents and results of recent published studies she chose Eliquis. Will administer first dose of Eliquis. - Critical Care Time Critical care time (excluding procedures): 30-74 minutes - 33 minutees, Discussing w/Patient &/or Family/Can Tender, Discussing w/Consultants, Arranging Admission or Transfer ED Disposition - Plan for ED Patient: Diagnosis: Pulmonary embolus, Pericardial effusion, Neutropenia associated with autoimmune disease, History of systemic lupus erythematosus, Hypoxia, Fever and neutropenia Referrals: Susanne Sanders DO [Primary Care Provider] -
[2019-02-14 12:14] LABS: Absolute Lymphocyte Count 0.16 X10^3/ul (0.83-4.51); Absolute Neutrophil Count 0.2 X10^3/uL (2.0-7.7); Basophil# 0.01 X10^3/uL; Basophil% 1.4 % (0-1); Eosinophil# 0.01 X10^3/uL; Eosinophils% 1.4 % (0-5); Hematocrit 32.5 % (37-47); Lymphocyte # 0.16 X10^3/ul (4.0); Lymphocyte % 22.9 % (19-41); Mean Corp Hgb Conc 33.8 g/gl (32-36); Mean Corpuscular Hgb 28.9 pg (27.0-32.0); Mean Corpuscular Volume 85.3 fL (81-99); Mean Platelet Vol. 13.4 fl (6.2-12.0); Monocyte# 0.29 X10^3/uL; Monocyte% 41.4 % (0-10); Neutrophil # 0.22 X10^3/uL (2.7-7.7); Neutrophil % 31.5 % (47-70); Platelet Count 58 K/mm3 (150-450); RBC Distribution Width CV 13.1 % (11.6-14.6); Red Blood Count 3.81 M/mm3 (4.2-5.4)
[2019-02-14 12:20] LABS: Differential Indicated SCAN CRITERIA MET; POSITIVE COUNT YES; POSITIVE DIFFERENTIAL YES; POSITIVE MORPHOLOGY YES; White Blood Count 0.7 K/mm3 (4.4-11.0)
--- NOTE | 2019-02-14 12:21 | ED.RN ---
wbc 0.7 called from the lab . dr vazquez aware
[2019-02-14 12:35] LABS: Glucose 144 mg/dL (74-106)
--- NOTE | 2019-02-14 12:35 | RAD_ITS ---
STUDY: X-RAY CHEST REASON FOR EXAM: Female, 33 years old. 3 day history of worsening cough, fever and shortness of breath. TECHNIQUE: AP and lateral views of the chest. COMPARISON: Comparison is made with prior study dated January 19, 2019. FINDINGS: EKG electrodes are seen. No evidence of vascular congestion and mild degree of CHF. There is no demonstrated pleural abnormality. There is moderate cardiac enlargement. Normal mediastinum and benedict. Normal visualized pulmonary arteries. Normal visualized aortic arch and descending thoracic aorta. Normal visualized thoracic spine. Normal visualized ribs, clavicles, and shoulders. There is no demonstrated abnormality of the visualized soft tissue structures of the upper abdomen. RAD/Chest PA and Lateral IMPRESSION: Cardiomegaly and mild degree of CHF. Electronically Signed: Kyle Almanzar, at 13:27 EDT , Service support ,
[2019-02-14 12:36] LABS: Anion Gap 8 (5-15); BUN 16 mg/dL (7-18); BUN/Creat Ratio 19.5 RATIO (10-20); Calcium,Total 8.3 mg/dL (8.5-10.1); Chloride 103 mmol/L (98-107); Creatinine, Serum 0.82 mg/dL (0.55-1.02); EST Glomerular Filtration Rate 84 mL/min (>60); Est Glom Filt Rate - Afr Amer 102 mL/min (>60); Estimated Creatinine Clearance 86.17 ml/min; Sodium Level 137 mmol/L (136-145)
[2019-02-14 12:37] LABS: Lactic Acid 1.3 mmol/L (0.4-2.0)
--- NOTE | 2019-02-14 12:46 | CT_ITS ---
STUDY: CTA CHEST REASON FOR EXAM: Female, 33 years old. Chest pain, hypoxia and tachypnea. Shortness of breath. RADIATION DOSAGE (If Supplied By Facility): CTDIvol = ( 15.04 ) mGy, DLP = ( 498.30 ) mGycm TECHNIQUE: The examination was performed with the intravenous administration of 100 IV Isovue 370. Post-processing of the angiographic images was performed, with multiplanar reformation and 3D reconstruction. Individualized dose optimization techniques were used for this CT. COMPARISON: Comparison is made with prior study dated February 28, 2018. FINDINGS: Small bilateral benign-appearing axillary lymph nodes. There are several nonocclusive small intraluminal filling defects in branches of the left upper lobe pulmonary artery. Normal thoracic aorta and visualized great vessels. There is no demonstrated aortic dissection. Large pericardial effusion. There are visualized mediastinal lymph nodes, which are within normal size limits, and with normal morphology. Normal hilar regions. Normal visualized trachea and bronchi. The lungs are well expanded. Infiltrate and/or atelectasis at the left lung base with a small left effusion. Normal chest wall structures. Normal osseous structures. Normal visualized upper abdomen. CT/CTA Chest W/WO Contrast IMPRESSION: Small nonocclusive intraluminal filling defects in the branches of the left upper lobe pulmonary artery. Large pericardial effusion. Left basilar atelectasis and/or infiltrate with a small left effusion. N.B. : The above information has been verbally conveyed by Kyle Almanzar to Valente Dodson MD, on 02/14/2019 14:29:02 (ET). Electronically Signed: Kyle Almanzar, at 14:30 EDT , Service support ,
[2019-02-14] MEDS: Ondansetron 4 MG/2 ML Vial IV (12:47)
[2019-02-14] MEDS: Ketorolac 15 MG/ML Vial IV (12:47)
[2019-02-14 13:12] LABS: Differential Comment SCANNED
[2019-02-14] MEDS: DiphenhydrAMINE 50 MG/ML Syringe 25 MG IV (13:17)
[2019-02-14] MEDS: Famotidine 20 MG Tablet PO (13:20)
--- NOTE | 2019-02-14 14:28 | ECHOCS_ITS ---
Reason For Study: DYSPNEA/SOB Procedure This was a 2D Doppler, Color Flow transthoracic echocardiogram. The study was technically difficult. Contrast injection was performed. Exam performed portable in ED. Left Ventricle Normal LV size. Mild concentric left ventricular hypertrophy. Left ventricular systolic function is normal. The estimated ejection fraction is 60 %. Transmitral doppler flow suggestive of impaired relaxation of left ventricle. No regional wall motion abnormalities noted. Right Ventricle Normal RV size. Normal systolic function. Atria Normal left atrium. Normal right atrium. No doppler evidence for ASD. Mitral Valve There is no mitral annular calcification. Normal mitral valve. Trivial mitral valve insufficiency. Tricuspid Valve Normal tricuspid valve. Trivial tricuspid valve insufficiency. Unable to estimate RV systolic pressure/pulmonary artery pressure due to technically difficult study. Aortic Valve Trisinus/trileaflet aortic valve. Normal aortic valve. Pulmonic Valve The pulmonic valve is not well visualized. Great Vessels Normal sized aortic root. Pericardium/Pleural Small pericardial effusion. There are no echocardiographic indications of cardiac tamponade. Medication Diluted definity 2.0ml given slow IV push to enhance endocardial definition. MMode/2D Measurements & Calculations LVIDd: 5.7 cm IVSd: 1.3 cm Ao root diam: 3.6 cm LVIDs: 3.9 cm LVPWd: 1.3 cm RVDd: 3.2 cm FS: 31.7 % LAV(MOD-bp): 46.5 ml LA A4 area: 17.1 cm2 LA dimension(2D): 4.0 cm LAV(MOD-bp) Indexed: 20.5 ml/m2 LAV(MOD-sp2): 49.5 ml LAV(MOD-sp4): 44.0 ml Doppler Measurements & Calculations MV E max anna: 75.4 cm/sec Ao V2 max: 152.8 cm/sec LV V1 max: 106.8 cm/sec MV A max anna: 93.3 cm/sec Ao max P.3 mmHg LV V1 max P.6 mmHg MV E/A: 0.81 PA V2 max: 97.4 cm/sec Interpretation Summary The study was technically difficult. Contrast injection was performed. Left ventricular systolic function is normal. The estimated ejection fraction is 60 %. Mild concentric left ventricular hypertrophy. Trivial mitral valve insufficiency. Trivial tricuspid valve insufficiency. Small pericardial effusion. There are no echocardiographic indications of cardiac tamponade. Unable to estimate RV systolic pressure/pulmonary artery pressure due to technically difficult study. Transmitral doppler flow suggestive of impaired relaxation of left ventricle Ordering Physician: Valente Dodson Referring Physician: Susanne Sanders Performed By: Tonia German RDCS, RVT
--- NOTE | 2019-02-14 16:12 | NURSING ---
DR DUARTE FOR DR GEIGER
--- NOTE | 2019-02-14 16:17 | NURSING ---
PCU ASHELFAH NEUTROPENIC FEVER, PULMONARY EMBOLUS, HYPOXIA, SLE, PERICARDIAL EFFUSION
[2019-02-14] MEDS: APIXABAN 5 MG TABLET 10 MG PO ×2 (16:20→22:41)
[2019-02-14 16:22] LABS: Potassium 3.7 mmol/L (3.5-5.1)
--- NOTE | 2019-02-14 16:24 | NURSING ---
DR DUARTE IN ER
[2019-02-14] MEDS: levoFLOXacin IV 750 MG/150 ML BAG 100 MG IV (16:26)
--- NOTE | 2019-02-14 16:45 | PCM.HP.STD ---
Problem List (1) History of systemic lupus erythematosus Status: Chronic (2) Pulmonary embolus Status: Acute (3) Pericardial effusion Status: Acute (4) Fever and neutropenia Status: Acute (5) cardiomyopathy Status: Chronic (6) GERD (gastroesophageal reflux disease) Status: Chronic Qualifiers: Esophagitis presence: esophagitis presence not specified Qualified Code(s): K21.9 - Gastro-esophageal reflux disease without esophagitis (7) Hypothyroidism Status: Chronic Qualifiers: Hypothyroidism type: unspecified Qualified Code(s): E03.9 - Hypothyroidism, unspecified History of Present Illness Date of Admission: 02/14/19 Chief Complaint: Fever, shortness of breath. The patient is a 33 year old F with past medical history as mentioned above presented to the emergency room because of fever and shortness of breath. Her symptoms started 2 days ago with low-grade fever of up to 100 Fahrenheit and shortness of breath on exertion, progressed to become even at rest sometimes, associated with dry cough, weakness and fatigue. Also, she complained of vague chest pain, the left side of her chest, dull aching pain, aggravated by taking a deep breath, associated with shortness of breath and without relieving factors. She continued to have fever, shortness of breath continued to worsen and she decided to come to the emergency department today. In the emergency department, she was febrile, tachycardic, blood pressure was stable and pulse ox was 98% on room air. Routine blood work was remarkable for severe leukopenia, neutropenia and thrombocytopenia, BMP was unremarkable. Lactic acid was 1.3. Chest x-ray showed cardiomegaly, no acute findings. Because patient was tachycardic, CTA chest done and revealed several nonocclusive small filling defect in the branches of the left upper lobe pulmonary artery, revealed large pericardial effusion and left basilar infiltrate and small left effusion. EKG reviewed sinus tachycardia without evidence of acute ischemic changes. 2D echocardiogram performed in the ER and revealed ejection fraction of 60%, small pericardial effusion, unable to estimate right ventricular systolic pressure. She is being admitted for acute left upper lobe small non-occlusive PEs, left lower lung healthcare associated pneumonia and febrile neutropenia as well as thrombocytopenia Past Medical History Past Medical History (Chronic Problems): Chronic Problems (Last Updated 02/14/19 @ 16:45 by Jackie Rivera MD) History of systemic lupus erythematosus (Chronic) cardiomyopathy (Chronic) GERD (gastroesophageal reflux disease) (Chronic) Obesity (BMI 30.0-34.9) (Chronic) Hypothyroidism (Chronic) Medical History: Medical History (Last Updated 02/14/19 @ 16:45 by Jackie Rivera MD) cardiomyopathy (Chronic) O90.3 GERD (gastroesophageal reflux disease) (Chronic) K21.9 Obesity (BMI 30.0-34.9) (Chronic) E66.9 Hypothyroidism (Chronic) E03.9 Psoriatic arthritis L40.50 Rheumatoid arthritis M06.9 Hypertension I10 Allergies acetaminophen [From Percocet] Allergy (Verified 02/14/19 11:15) Rash amoxicillin Allergy (Verified 02/14/19 11:15) Rash cephalexin [From Keflex] Allergy (Verified 02/14/19 11:27) Rash clindamycin Allergy (Verified 02/14/19 11:27) Rash doxycycline Allergy (Verified 02/14/19 11:15) Hives Iodinated Contrast- Oral and IV Dye [CONTRASTS] Allergy (Verified 02/14/19 11:15) Shortness of breath morphine Allergy (Verified 02/14/19 11:15) Swelling oxycodone Allergy (Verified 02/14/19 11:15) Hives Penicillins Allergy (Verified 02/14/19 11:15) Rash codeine Adverse Reaction (Verified 02/14/19 11:15) Nausea Home Medications: Ambulatory Orders Medication Instructions Recorded Belimumab [Benlysta] 200 mg SQ TONG 01/19/19 Duloxetine HCl 30 mg PO BID 01/19/19 Prednisone 10 mg PO DAILY 01/19/19 Surgical History: Surgical History (Last Updated 11/17/17 @ 13:53 by Luisa Negron) History of Z98.891 Surgical History: appendectomy, cholecystectomy, - - s/p 2 CS Lives: Spouse/ Significant Other Smoking Status: Never smoker Alcohol: None Drugs: None - *Family History Maternal History Items: No pertinent history Paternal History Items: Unknown Review of Systems Constitutional: Reports: Fever, Weakness, Fatigue. Denies: Anorexia, Chills Eyes: Denies: Blurred vision, Double vision, Drainage, Redness HEENT: Denies: Difficulty Hearing, Ear Pain, Eye Pain, Nasal Congestion, Sore Throat Cardiovascular: Reports: Chest Pain. Denies: Edema, Heaviness, Light Headedness, Orthopnea, Palpitations, Syncope Respiratory: Reports: Cough, Shortness of Breath, Shortness of breath at rest, Shortness of breath upon exertion. Denies: Sputum production, Wheezing Gastrointestinal: Reports: Nausea. Denies: Abdominal Pain, Constipation, Diarrhea, Vomiting Genitourinary: Denies: Dysuria, Frequency, Hematuria Musculoskeletal: Denies: Arm Pain, Back Pain, Foot Pain Skin: Denies: Dryness, Rash Neurological: Denies: Balance problems, Double vision, Change in Speech, Slurred speech, Confusion, Headaches, Incoordination Psychiatric: Denies: Anxiety, Depression Endocrine: Denies: Change in Body Habitus, Polydipsia VTE Information - Inpt Only VTE Present on Admission: No VTE Mechan Device Prophylaxis: None VTE Pharm Prophylaxis ordered?: No Patient Problems: Active and Suspected Problems (Last Updated 02/14/19 @ 16:45 by Jackie Rivera MD) Hypoxia (Acute) Pulmonary embolus (Acute) Pericardial effusion (Acute) Neutropenia associated with autoimmune disease (Acute) Fever and neutropenia (Acute) - Physical Exam General: Alert, Oriented x3, Cooperative, - - Moderately short of breath. HEENT: PERRLA, Normocephalic Oral: Moist Mucosa, No Gingival or Mucosal Lesions/ Ulcerations Neck: Supple, No JVD, Negative Carotid Bruits, Trachea Midline, Thyroid Normal Size and Texture Lungs: No rhonchi, No wheeze, Diminished, Rales, - - Decreased breath sounds on the left base, coarse crackles in the left base. Cardiovascular: Regular rate, Regular Rhythm, Normal S1, Normal S2, PMI Normal, Tachycardic Abdomen: Bowel Sounds Present, Soft, Non Tender, Non-Distended, No Hepato-splenomegaly, Obese Extremities: No clubbing, No cyanosis, No edema Skin: No rashes, No breakdown Lymphatic: No Cervical, Supraclavicular, or Inguinal Adenopathy Neurological: Cranial nerves II-XII grossly intact, Motor Exam 5/5 strength throughout Psych/Mental Status: Normal Affect, Appropriate, Alert and oriented to time, place, person, mood and affect Vital Signs Temp Pulse Resp BP Pulse Ox 100.9 F H 115 H 12 149/103 H 99 02/14/19 15:51 02/14/19 16:30 02/14/19 16:30 02/14/19 16:30 02/14/19 16:30 Oxygen Delivery Method Room Air Weight: 275 lb Body Mass Index (BMI) 45.7 Laboratory Tests Past 24 Hrs 02/14/19 02/14/19 02/14/19 12:00 12:00 12:00 WBC 0.7 L* RBC 3.81 L Hgb 11.0 L Hct 32.5 L MCV 85.3 MCH 28.9 MCHC 33.8 RDW 13.1 RDW Differential 41.0 Plt Count 58 L MPV 13.4 H Immature Gran % (Auto) 1.400 H Neut % (Auto) 31.5 L Lymph % (Auto) 22.9 [facility] % (Auto) 41.4 H Eos % (Auto) 1.4 Baso % (Auto) 1.4 H Absolute Neuts (auto) 0.2 L Absolute Lymphs (auto) 0.16 L Total Counted Not Reportable Differential Comment SCANNED Diff Path Review February Sodium 137 Potassium 3.7 Chloride 103 Carbon Dioxide 26.0 Anion Gap 8 BUN 16 Creatinine 0.82 Estim Creat Clear Calc 86.17 Est GFR (MDRD) Af Amer 102 Est GFR (MDRD) Non-Af 84 BUN/Creatinine Ratio 19.5 Glucose 144 H Lactic Acid 1.3 Calcium 8.3 L Clinical Impression(s) from Imaging Studies Chest X-Ray 02/14/19 12:35 IMPRESSION: Cardiomegaly and mild degree of CHF. Electronically Signed: Kyle Almanzar, at 13:27 EDT , Service support , Chest CTA 02/14/19 12:46 IMPRESSION: Small nonocclusive intraluminal filling defects in the branches of the left upper lobe pulmonary artery. Large pericardial effusion. Left basilar atelectasis and/or infiltrate with a small left effusion. N.B. : The above information has been verbally conveyed by Kyle Almanzar to Valente Dodson MD, on 02/14/2019 14:29:02 (ET). Electronically Signed: Kyle Almanzar, at 14:30 EDT , Service support , ADDENDUM: 02/14/19 1437 IMPRESSION: Small nonocclusive intraluminal filling defects in the branches of the left upper lobe pulmonary artery. Large pericardial effusion. Left basilar atelectasis and/or infiltrate with a small left effusion. N.B. : The above information has been verbally conveyed by Kyle Almanzar to Valente Dodson MD, on 02/14/2019 14:29:02 (ET). Electronically Signed: Kyle Almanzar, at 14:30 EDT , Service support , Assessment/Plan All Active Problems (Last Updated 02/14/19 @ 16:45 by Jackie Rivera MD) Hypoxia (Acute) Pulmonary embolus (Acute) Pericardial effusion (Acute) Neutropenia associated with autoimmune disease (Acute) Fever and neutropenia (Acute) This is a 33 years old female patient presented to the emergency room because of fever, shortness of breath, pleuritic chest pain and she was found to have acute pulmonary embolus, left lower lobe healthcare associated pneumonia and febrile neutropenia. #1 acute multiple small nonocclusive PEs of the left upper lobe pulmonary artery: Probably provoked secondary to history of autoimmune disease being on Benlysta. CTA chest reviewed. She is tachycardic, blood pressure stable, pulse ox is maintained on room air. 2D echocardiogram reviewed as above. She received a loading dose of Eliquis in the ED. Plan: Admit to PCU, cardiac monitoring, serial cardiac enzymes, Eliquis 10 mg p.o. twice daily, IV morphine PRN for pain, IV antiemetics, stress dose of IV steroids because she has been on long-term prednisone, PT OT reevaluation and treatment. #2 left lower lobe healthcare associated pneumonia: Patient has been febrile, she has severe leukopenia and neutropenia. CTA chest reviewed. Because she is receiving biologic therapy and being leukopenic and neutropenic, this is healthcare associated pneumonia. Plan: Sputum culture, pneumococcal and Legionella antigen, start IV Levaquin and meropenem, urinalysis, urine culture. Mucinex twice daily, #3 febrile neutropenia/thrombocytopenia: Probably secondary to Benlysta. Her white blood cell count is 700, absolute neutrophil count is 200. Her platelet count is 58,000, she is chronically thrombocytopenic. Plan: Neutropenic precautions, blood culture, urine culture, IV meropenem and Levaquin as above, infectious disease consult. #4 pericardial effusion: On the CTA chest, it was reported as large pericardial effusion. 2D echocardiogram done and revealed ejection fraction 60%, small pericardial effusion, no cardiac tamponade. #5 systemic lupus erythematosus: She is on weekly injections of Benlysta as well as long-term prednisone. Because of his acute illness, I will start him on stress dose of IV hydrocortisone, hold prednisone for now. #6 hypothyroidism: Listed on her home medication list, not on replacement. Will check her TSH. #7 history of cardiomyopathy: Clinically compensated, no evidence of acute CHF. Ejection fraction 60% on echocardiogram. #8 DVT prophylaxis: She will be on Eliquis. This note was generated with [employer] dictation software. It may contain incorrect words, spelling, and punctuation that were not noted in checking the note before signing. Code Visit Inpatient E&M: 57811 Init Hosp L3
--- NOTE | 2019-02-14 16:51 | HP.PCM_ITS ---
Problem List (1) History of systemic lupus erythematosus Status: Chronic (2) Pulmonary embolus Status: Acute (3) Pericardial effusion Status: Acute (4) Fever and neutropenia Status: Acute (5) cardiomyopathy Status: Chronic (6) GERD (gastroesophageal reflux disease) Status: Chronic Qualifiers: Esophagitis presence: esophagitis presence not specified Qualified Code(s): K21.9 - Gastro-esophageal reflux disease without esophagitis (7) Hypothyroidism Status: Chronic Qualifiers: Hypothyroidism type: unspecified Qualified Code(s): E03.9 - Hypothyroidism, unspecified History of Present Illness Date of Admission: 02/14/19 Chief Complaint: Fever, shortness of breath. The patient is a 33 year old F with past medical history as mentioned above presented to the emergency room because of fever and shortness of breath. Her symptoms started 2 days ago with low-grade fever of up to 100 Fahrenheit and shortness of breath on exertion, progressed to become even at rest sometimes, associated with dry cough, weakness and fatigue. Also, she complained of vague chest pain, the left side of her chest, dull aching pain, aggravated by taking a deep breath, associated with shortness of breath and without relieving factors. She continued to have fever, shortness of breath continued to worsen and she decided to come to the emergency department today. In the emergency department, she was febrile, tachycardic, blood pressure was stable and pulse ox was 98% on room air. Routine blood work was remarkable for severe leukopenia, neutropenia and thrombocytopenia, BMP was unremarkable. Lactic acid was 1.3. Chest x-ray showed cardiomegaly, no acute findings. Because patient was tachycardic, CTA chest done and revealed several nonocclusive small filling defect in the branches of the left upper lobe pulmonary artery, revealed large pericardial effusion and left basilar infiltrate and small left effusion. EKG reviewed sinus tachycardia without evidence of acute ischemic changes. 2D echocardiogram performed in the ER and revealed ejection fraction of 60%, small pericardial effusion, unable to estimate right ventricular systolic pressure. She is being admitted for acute left upper lobe small non-occlusive PEs, left lower lung healthcare associated pneumonia and febrile neutropenia as well as thrombocytopenia Past Medical History Past Medical History (Chronic Problems): Chronic Problems (Last Updated 02/14/19 @ 16:45 by Jackie Rivera MD) History of systemic lupus erythematosus (Chronic) cardiomyopathy (Chronic) GERD (gastroesophageal reflux disease) (Chronic) Obesity (BMI 30.0-34.9) (Chronic) Hypothyroidism (Chronic) Medical History: Medical History (Last Updated 02/14/19 @ 16:45 by Jackie Rivera MD) cardiomyopathy (Chronic) O90.3 GERD (gastroesophageal reflux disease) (Chronic) K21.9 Obesity (BMI 30.0-34.9) (Chronic) E66.9 Hypothyroidism (Chronic) E03.9 Psoriatic arthritis L40.50 Rheumatoid arthritis M06.9 Hypertension I10 Allergies acetaminophen [From Percocet] Allergy (Verified 02/14/19 11:15) Rash amoxicillin Allergy (Verified 02/14/19 11:15) Rash cephalexin [From Keflex] Allergy (Verified 02/14/19 11:27) Rash clindamycin Allergy (Verified 02/14/19 11:27) Rash doxycycline Allergy (Verified 02/14/19 11:15) Hives Iodinated Contrast- Oral and IV Dye [CONTRASTS] Allergy (Verified 02/14/19 11:15) Shortness of breath morphine Allergy (Verified 02/14/19 11:15) Swelling oxycodone Allergy (Verified 02/14/19 11:15) Hives Penicillins Allergy (Verified 02/14/19 11:15) Rash codeine Adverse Reaction (Verified 02/14/19 11:15) Nausea Home Medications: Ambulatory Orders Medication Instructions Recorded Belimumab [Benlysta] 200 mg SQ TONG 01/19/19 Duloxetine HCl 30 mg PO BID 01/19/19 Prednisone 10 mg PO DAILY 01/19/19 Surgical History: Surgical History (Last Updated 11/17/17 @ 13:53 by Luisa Negron) History of Z98.891 Surgical History: appendectomy, cholecystectomy, - - s/p 2 CS Lives: Spouse/ Significant Other Smoking Status: Never smoker Alcohol: None Drugs: None - *Family History Maternal History Items: No pertinent history Paternal History Items: Unknown Review of Systems Constitutional: Reports: Fever, Weakness, Fatigue. Denies: Anorexia, Chills Eyes: Denies: Blurred vision, Double vision, Drainage, Redness HEENT: Denies: Difficulty Hearing, Ear Pain, Eye Pain, Nasal Congestion, Sore Throat Cardiovascular: Reports: Chest Pain. Denies: Edema, Heaviness, Light Headedness, Orthopnea, Palpitations, Syncope Respiratory: Reports: Cough, Shortness of Breath, Shortness of breath at rest, Shortness of breath upon exertion. Denies: Sputum production, Wheezing Gastrointestinal: Reports: Nausea. Denies: Abdominal Pain, Constipation, Diarrhea, Vomiting Genitourinary: Denies: Dysuria, Frequency, Hematuria Musculoskeletal: Denies: Arm Pain, Back Pain, Foot Pain Skin: Denies: Dryness, Rash Neurological: Denies: Balance problems, Double vision, Change in Speech, Slurred speech, Confusion, Headaches, Incoordination Psychiatric: Denies: Anxiety, Depression Endocrine: Denies: Change in Body Habitus, Polydipsia VTE Information - Inpt Only VTE Present on Admission: No VTE Mechan Device Prophylaxis: None VTE Pharm Prophylaxis ordered?: No Patient Problems: Active and Suspected Problems (Last Updated 02/14/19 @ 16:45 by Jackie Rivera MD) Hypoxia (Acute) Pulmonary embolus (Acute) Pericardial effusion (Acute) Neutropenia associated with autoimmune disease (Acute) Fever and neutropenia (Acute) - Physical Exam General: Alert, Oriented x3, Cooperative, - - Moderately short of breath. HEENT: PERRLA, Normocephalic Oral: Moist Mucosa, No Gingival or Mucosal Lesions/ Ulcerations Neck: Supple, No JVD, Negative Carotid Bruits, Trachea Midline, Thyroid Normal Size and Texture Lungs: No rhonchi, No wheeze, Diminished, Rales, - - Decreased breath sounds on the left base, coarse crackles in the left base. Cardiovascular: Regular rate, Regular Rhythm, Normal S1, Normal S2, PMI Normal, Tachycardic Abdomen: Bowel Sounds Present, Soft, Non Tender, Non-Distended, No Hepato- splenomegaly, Obese Extremities: No clubbing, No cyanosis, No edema Skin: No rashes, No breakdown Lymphatic: No Cervical, Supraclavicular, or Inguinal Adenopathy Neurological: Cranial nerves II-XII grossly intact, Motor Exam 5/5 strength throughout Psych/Mental Status: Normal Affect, Appropriate, Alert and oriented to time, place, person, mood and affect Vital Signs Temp Pulse Resp BP Pulse Ox 100.9 F H 115 H 12 149/103 H 99 02/14/19 15:51 02/14/19 16:30 02/14/19 16:30 02/14/19 16:30 02/14/19 16:30 Oxygen Delivery Method Room Air Weight: 275 lb Body Mass Index (BMI) 45.7 Laboratory Tests Past 24 Hrs 02/14/19 02/14/19 02/14/19 12:00 12:00 12:00 WBC 0.7 L* RBC 3.81 L Hgb 11.0 L Hct 32.5 L MCV 85.3 MCH 28.9 MCHC 33.8 RDW 13.1 RDW Differential 41.0 Plt Count 58 L MPV 13.4 H Immature Gran % (Auto) 1.400 H Neut % (Auto) 31.5 L Lymph % (Auto) 22.9 [facility] % (Auto) 41.4 H Eos % (Auto) 1.4 Baso % (Auto) 1.4 H Absolute Neuts (auto) 0.2 L Absolute Lymphs (auto) 0.16 L Total Counted Not Reportable Differential Comment SCANNED Diff Path Review February Sodium 137 Potassium 3.7 Chloride 103 Carbon Dioxide 26.0 Anion Gap 8 BUN 16 Creatinine 0.82 Estim Creat Clear Calc 86.17 Est GFR (MDRD) Af Amer 102 Est GFR (MDRD) Non-Af 84 BUN/Creatinine Ratio 19.5 Glucose 144 H Lactic Acid 1.3 Calcium 8.3 L Clinical Impression(s) from Imaging Studies Chest X-Ray 02/14/19 12:35 IMPRESSION: Cardiomegaly and mild degree of CHF. Electronically Signed: Kyle Almanzar, at 13:27 EDT , Service support , Chest CTA 02/14/19 12:46 IMPRESSION: Small nonocclusive intraluminal filling defects in the branches of the left upper lobe pulmonary artery. Large pericardial effusion. Left basilar atelectasis and/or infiltrate with a small left effusion. N.B. : The above information has been verbally conveyed by Kyle Almanzar to Valente Dodson MD, on 02/14/2019 14:29:02 (ET). Electronically Signed: Kyle Almanzar, at 14:30 EDT , Service support , ADDENDUM: 02/14/19 1437 IMPRESSION: Small nonocclusive intraluminal filling defects in the branches of the left upper lobe pulmonary artery. Large pericardial effusion. Left basilar atelectasis and/or infiltrate with a small left effusion. N.B. : The above information has been verbally conveyed by Kyle Almanzar to Valente Dodson MD, on 02/14/2019 14:29:02 (ET). Electronically Signed: Kyle Almanzar, at 14:30 EDT , Service support , Assessment/Plan All Active Problems (Last Updated 02/14/19 @ 16:45 by Jackie Rivera MD) Hypoxia (Acute) Pulmonary embolus (Acute) Pericardial effusion (Acute) Neutropenia associated with autoimmune disease (Acute) Fever and neutropenia (Acute) This is a 33 years old female patient presented to the emergency room because of fever, shortness of breath, pleuritic chest pain and she was found to have acute pulmonary embolus, left lower lobe healthcare associated pneumonia and febrile neutropenia. #1 acute multiple small nonocclusive PEs of the left upper lobe pulmonary artery: Probably provoked secondary to history of autoimmune disease being on Benlysta. CTA chest reviewed. She is tachycardic, blood pressure stable, pulse ox is maintained on room air. 2D echocardiogram reviewed as above. She received a loading dose of Eliquis in the ED. Plan: Admit to PCU, cardiac monitoring, serial cardiac enzymes, Eliquis 10 mg p.o. twice daily, IV morphine PRN for pain, IV antiemetics, stress dose of IV steroids because she has been on long-term prednisone, PT OT reevaluation and treatment. #2 left lower lobe healthcare associated pneumonia: Patient has been febrile, she has severe leukopenia and neutropenia. CTA chest reviewed. Because she is receiving biologic therapy and being leukopenic and neutropenic, this is healthcare associated pneumonia. Plan: Sputum culture, pneumococcal and Legionella antigen, start IV Levaquin and meropenem, urinalysis, urine culture. Mucinex twice daily, #3 febrile neutropenia/thrombocytopenia: Probably secondary to Benlysta. Her white blood cell count is 700, absolute neutrophil count is 200. Her platelet count is 58,000, she is chronically thrombocytopenic. Plan: Neutropenic precautions, blood culture, urine culture, IV meropenem and Levaquin as above, infectious disease consult. #4 pericardial effusion: On the CTA chest, it was reported as large pericardial effusion. 2D echocardiogram done and revealed ejection fraction 60%, small pericardial effusion, no cardiac tamponade. #5 systemic lupus erythematosus: She is on weekly injections of Benlysta as well as long-term prednisone. Because of his acute illness, I will start him on stress dose of IV hydrocortisone, hold prednisone for now. #6 hypothyroidism: Listed on her home medication list, not on replacement. Will check her TSH. #7 history of cardiomyopathy: Clinically compensated, no evidence of acute CHF. Ejection fraction 60% on echocardiogram. #8 DVT prophylaxis: She will be on Eliquis. This note was generated with [employer] dictation software. It may contain incorrect words, spelling, and punctuation that were not noted in checking the note before signing. Code Visit Inpatient E&M: 91976 Init Hosp L3
[2019-02-14 18:08] LABS: Bacteria 0 SEEN /hpf (None Seen); Mucous, Urine 0 SEEN /hpf (<or=2+)
[2019-02-14 18:27] LABS: Color, Urine Yellow (Yellow); Glucose, Dipstick Normal (Normal); Ketone-Dipstick Negative (Negative); Leukocyte Esterase-Dipstick 25 /ul (Negative); Nitrite-Dipstick Negative (Negative); Occult Blood-Urine 150 /ul (Negative); Protein-Dipstick 500 mg/dl (Negative); Specific Gravity, Urine 1.005 (1.002-1.030); Urine Bilirubin Dipstick Negative (Negative); Urine Clarity Clear (Clear); Urine Urobilinogen 4 mg/dl (Normal)
[2019-02-14] MEDS: 0.9% Normal Saline 1,000 ML 100 ML IV (18:29)
[2019-02-14 18:31] LABS: Thyroid Stim Hormone (TSH) 5.05 uIU/mL (0.358-3.74)
[2019-02-14 18:32] LABS: White Blood Cells 0-5 SEEN /hpf (0-5)
[2019-02-14] MEDS: Ibuprofen 600 MG Tablet PO (18:32)
[2019-02-14 18:33] LABS: Red Blood Cells-Urine 5-10 SEEN /hpf (0-5); Squamous Epithelial Cells - UA 0-5 SEEN /hpf (5-10)
[2019-02-14] MEDS: BENZOCAINE/MENTHOL 1 LOZENGE MUCOUS MEM (18:40)
[2019-02-14] MEDS: DULoxetine Hcl 30 MG Capsule PO (21:39)
[2019-02-14] MEDS: Hydrocortisone Sod Succinate 100 MG/2 ML Vial 50 MG IV (21:40)
[2019-02-14] MEDS: guaiFENesin 1,200 MG Tablet 1200 MG PO (21:40)
[2019-02-14] MEDS: Acetaminophen 325 MG Tablet 650 MG PO (21:41)
[2019-02-14] MEDS: 0.9% NaCl Peripheral Flush Adult/Peds IV ×2 (21:53→21:54)
[2019-02-15] VITALS (11 sets, daily range): BP systolic 119–151; BP diastolic 76–108; PULSE 89–105; RESP 16–29; TEMP 36.4–36.9; O2SAT 94–99
[2019-02-15 05:53] LABS: Anion Gap 8 (5-15); BUN 15 mg/dL (7-18); BUN/Creat Ratio 19.5 RATIO (10-20); Calcium,Total 7.8 mg/dL (8.5-10.1); Chloride 108 mmol/L (98-107); Creatinine, Serum 0.77 mg/dL (0.55-1.02); EST Glomerular Filtration Rate 90 mL/min (>60); Est Glom Filt Rate - Afr Amer 109 mL/min (>60); Estimated Creatinine Clearance 91.76 ml/min; Glucose 116 mg/dL (74-106); Potassium 4.2 mmol/L (3.5-5.1); Sodium Level 139 mmol/L (136-145)
[2019-02-15] MEDS: 0.9% NaCl Peripheral Flush Adult/Peds IV ×4 (05:53→21:01)
[2019-02-15] MEDS: Hydrocortisone Sod Succinate 100 MG/2 ML Vial 50 MG IV ×3 (05:56→21:00)
[2019-02-15] MEDS: Ibuprofen 600 MG Tablet PO ×2 (05:59→14:43)
[2019-02-15 06:11] LABS: Absolute Lymphocyte Count 0.18 X10^3/ul (0.83-4.51); Absolute Neutrophil Count 0.5 X10^3/uL (2.0-7.7); Hematocrit 31.1 % (37-47); Hemoglobin 10.2 g/dl (12.0-15.0); Lymphocyte # 0.18 X10^3/ul (4.0); Lymphocyte % 16.2 % (19-41); Mean Corp Hgb Conc 32.8 g/gl (32-36); Mean Corpuscular Hgb 28.3 pg (27.0-32.0); Mean Corpuscular Volume 86.4 fL (81-99); Mean Platelet Vol. 12.1 fl (6.2-12.0); Monocyte# 0.39 X10^3/uL; Monocyte% 35.1 % (0-10); Neutrophil # 0.52 X10^3/uL (2.7-7.7); Neutrophil % 46.9 % (47-70); Platelet Count 52 K/mm3 (150-450); RBC Distribution Width CV 13.2 % (11.6-14.6); RBC Distribution Width SD 42.2 fl (35.1-43.9)
[2019-02-15 06:24] LABS: Differential Indicated SCAN CRITERIA MET; POSITIVE COUNT YES; POSITIVE DIFFERENTIAL YES; POSITIVE MORPHOLOGY NO; White Blood Count 1.1 K/mm3 (4.4-11.0)
[2019-02-15 06:37] LABS: Differential Comment SCANNED; Platelet Estimate MOD DEC (ADEQ)
[2019-02-15] MEDS: guaiFENesin 1,200 MG Tablet 1200 MG PO ×2 (09:06→20:59)
[2019-02-15] MEDS: APIXABAN 5 MG TABLET 10 MG PO ×2 (09:06→20:59)
[2019-02-15] MEDS: DULoxetine Hcl 30 MG Capsule PO ×2 (09:06→20:59)
[2019-02-15] MEDS: levoFLOXacin IV 750 MG/150 ML BAG 100 MG IV (09:14)
--- NOTE | 2019-02-15 10:30 | CASEMGMT ---
VAHID STRICKLAND assessment: Face to Face with patient for initial transition planning/care coordination assessment. VAHID STRICKLAND introduced self and role at [facility], pt voices understanding and consents to assessment at this time. Pt is sitting up in bed in no distress at this time. Pt is A/Ox4 at this time and answers all questions appropriately at this time. Care providers, pharmacy, and demographics verified at this time. PCP: Susanne Sanders Specialists: Manoj, cardio; Mercy, onc; Felicita Jara, endocrinology in [place] Preferred Pharmacy: [facility] Insurance: [employer]/ [employer] Prescription Benefit: [employer] Living Will/HPOA: Pt states that she does not have LW/HPOA and declines info at this time. LNOK: Gisell Desir, sister Living Arrangements: Pt states lives with her 2 daughters in 1 story home and states no concerns at home at this time. Pt states is independent with ADL's. Transportation: Pt states drives self and states no transportation concerns at this time. DME/HHC: Pt states does not have any currently DME or need for any at this time. Pt states no hx of HHC or SNF. Pt states no concerns with going home at time of discharge. 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 Pt states does not smoke or drink ETOH. Pt states no further concerns/needs at this time. CM to follow for any further discharge planning/needs. Advised pt to ask for CM if any further questions/concerns/needs arise, voices understanding. Pt Goal: Home Plan[place] VAHID STRICKLAND
--- NOTE | 2019-02-15 14:46 | CPS ---
Patient stated she is working on PEP Therapy on own.
--- NOTE | 2019-02-15 15:40 | PCM.HP.ID ---
Problem List (1) Fever and neutropenia Status: Acute Reason for Consult: fever Consulted by: Dr. Rivera History of Present Illness: The patient is a 33 year old F with SLE, on Benlysta, presented with several days of sharp L sided chest pain and SOB. Pain worse with deep breath. Some dry cough. No sputum. Developed fever, chills, shakes. Some dry heaves. No abd pain, no diarrhea, no dysuria. Chronic pain in joint and some rash, at baseline. Came to ED, dx with PE, found to have neutropenic fever. Admitted on meropenem and levaquin. Feeling ok, fever improved. Full ROS Performed and neg except as noted above. - Medical History Past Medical History (Chronic Problems): Chronic Problems (Last Updated 02/14/19 @ 16:45 by Jackie Rivera MD) History of systemic lupus erythematosus (Chronic) cardiomyopathy (Chronic) GERD (gastroesophageal reflux disease) (Chronic) Obesity (BMI 30.0-34.9) (Chronic) Hypothyroidism (Chronic) Allergies/Adverse Reactions: Allergies acetaminophen [From Percocet] Allergy (Verified 02/14/19 11:15) Rash amoxicillin Allergy (Verified 02/14/19 11:15) Rash cephalexin [From Keflex] Allergy (Verified 02/14/19 11:27) Rash clindamycin Allergy (Verified 02/14/19 11:27) Rash doxycycline Allergy (Verified 02/14/19 11:15) Hives Iodinated Contrast- Oral and IV Dye [CONTRASTS] Allergy (Verified 02/14/19 11:15) Shortness of breath morphine Allergy (Verified 02/14/19 11:15) Swelling oxycodone Allergy (Verified 02/14/19 11:15) Hives Penicillins Allergy (Verified 02/14/19 11:15) Rash codeine Adverse Reaction (Verified 02/14/19 11:15) Nausea Home Medications: Ambulatory Orders Medication Instructions Recorded Belimumab [Benlysta] 200 mg SQ TONG 01/19/19 Duloxetine HCl 30 mg PO BID 01/19/19 Prednisone 10 mg PO DAILY 01/19/19 - Social History Tobacco Use: non-smoker Vital Signs Temp Pulse Resp BP Pulse Ox 98.5 F 95 16 144/89 H 95 02/15/19 14:50 02/15/19 14:50 02/15/19 14:50 02/15/19 14:50 02/15/19 14:50 Oxygen Delivery Method Room Air Weight: 124.7 kg Body Mass Index (BMI) 45.7 Microbiology Past 72 Hours 02/14/19 Unknown Streptococcus pneumoniae Antigen (M - Final Urine, Clean Catch 02/14/19 Unknown Legionella Antigen - Final Urine, Clean Catch Laboratory Tests Past 24 Hrs 02/14/19 02/14/19 02/14/19 12:00 12:00 18:37 WBC RBC Hgb Hct MCV MCH MCHC RDW RDW Differential Plt Count MPV Immature Gran % (Auto) Neut % (Auto) Lymph % (Auto) [place] % (Auto) Eos % (Auto) Baso % (Auto) Absolute Neuts (auto) Absolute Lymphs (auto) Total Counted Differential Comment Diff Path Review Platelet Estimate Sodium Potassium 3.7 Chloride Carbon Dioxide Anion Gap BUN Creatinine Estim Creat Clear Calc Est GFR (MDRD) Af Amer Est GFR (MDRD) Non-Af BUN/Creatinine Ratio Glucose Calcium Troponin I < 0.015 TSH 5.05 H Urine Color Urine Clarity Urine pH Ur Specific [place] Urine Protein Urine Glucose (UA) Urine Ketones Urine Occult Blood Urine Nitrite Urine Bilirubin Urine Urobilinogen Ur Leukocyte Esterase Urine RBC Urine WBC Ur Squamous Epith Cells Urine Bacteria Urine Mucus 02/14/19 02/14/19 02/14/19 21:05 23:20 Unknown WBC RBC Hgb Hct MCV MCH MCHC RDW RDW Differential Plt Count MPV Immature Gran % (Auto) Neut % (Auto) Lymph % (Auto) [place] % (Auto) Eos % (Auto) Baso % (Auto) Absolute Neuts (auto) Absolute Lymphs (auto) Total Counted Differential Comment Diff Path Review Platelet Estimate Sodium Potassium Chloride Carbon Dioxide Anion Gap BUN Creatinine Estim Creat Clear Calc Est GFR (MDRD) Af Amer Est GFR (MDRD) Non-Af BUN/Creatinine Ratio Glucose Calcium Troponin I < 0.015 < 0.015 TSH Urine Color Yellow Urine Clarity Clear Urine pH 7.0 Ur Specific [place] 1.005 Urine Protein 500 H Urine Glucose (UA) Normal Urine Ketones Negative Urine Occult Blood 150 H Urine Nitrite Negative Urine Bilirubin Negative Urine Urobilinogen 4 H Ur Leukocyte Esterase 25 H Urine RBC 5-10 SEEN Urine WBC 0-5 SEEN Ur Squamous Epith Cells 0-5 SEEN Urine Bacteria 0 SEEN Urine Mucus 0 SEEN 02/15/19 02/15/19 05:12 05:12 WBC 1.1 L* RBC 3.60 L Hgb 10.2 L Hct 31.1 L MCV 86.4 MCH 28.3 MCHC 32.8 RDW 13.2 RDW Differential 42.2 Plt Count 52 L MPV 12.1 H Immature Gran % (Auto) 1.800 H Neut % (Auto) 46.9 L Lymph % (Auto) 16.2 L [place] % (Auto) 35.1 H Eos % (Auto) 0.0 Baso % (Auto) 0.0 Absolute Neuts (auto) 0.5 L Absolute Lymphs (auto) 0.18 L Total Counted Not Reportable Differential Comment SCANNED Diff Path Review May foll Platelet Estimate MOD DEC Sodium 139 Potassium 4.2 Chloride 108 H Carbon Dioxide 23.0 Anion Gap 8 BUN 15 Creatinine 0.77 Estim Creat Clear Calc 91.76 Est GFR (MDRD) Af Amer 109 Est GFR (MDRD) Non-Af 90 BUN/Creatinine Ratio 19.5 Glucose 116 H Calcium 7.8 L Troponin I TSH Urine Color Urine Clarity Urine pH Ur Specific [place] Urine Protein Urine Glucose (UA) Urine Ketones Urine Occult Blood Urine Nitrite Urine Bilirubin Urine Urobilinogen Ur Leukocyte Esterase Urine RBC Urine WBC Ur Squamous Epith Cells Urine Bacteria Urine Mucus - Other Studies Radiology: [] reviewed Other Studies: [] Route of nutrition/ use of supplements: [] Nutritional Intake: [] IV Site: [] [place] Catheter: [] - Physical Exam General: Alert, Oriented x3, Cooperative, No apparent distress HEENT: Atraumatic, PERRLA, EOMI, - - no thrush Neck: Supple, No Nodes Lungs: Normal air movement, Rales - L base Cardiovascular: Regular rate, Regular Rhythm, No murmurs Abdomen: Soft, Non Tender, Non-Distended Extremities: No edema Skin: Rash Present - on face IV Site: Peripheral, without redness Musculoskeletal: No Tenderness to Palpation of Joints or Extremities Neurological: Cranial nerves II-XII grossly intact - Assessment/Plan Antibiotics: [] Assessment/Plan: [] Active and Suspected Problems (Last Updated 02/14/19 @ 16:45 by Jackie Rivera MD) Hypoxia (Acute) Pulmonary embolus (Acute) Pericardial effusion (Acute) Neutropenia associated with autoimmune disease (Acute) Fever and neutropenia (Acute) Neutropenic fever - stop levaquin, continue meropenem. Not clear if true pneumonia vs atelectasis related to new PE. Neutropenia limits her ability to mount an inflammatory response, so difficult to rule focal infection. Will consult hematology; has seen Dr. Madrid in the past. May benefit from GCSF. Will follow, thank you.
--- NOTE | 2019-02-15 17:02 | VDLE_ITS ---
RIGHT LEFT GSV is normal. GSV is normal. CFV is compressible, spontaneous, phasic, CFV is compressible, spontaneous, phasic, competent and demonstrates normal competent, and demonstrates normal augmentation. augmentation. FV is compressible, spontaneous, phasic, FV is compressible, spontaneous, phasic, competent and demonstrates normal competent and demonstrates normal augmentation. augmentation. POP V is compressible, spontaneous, phasic, POP V is compressible, spontaneous, phasic, competent and demonstrates normal competent and demonstrates normal augmentation. augmentation. T/P Trunk is compressible. T/P Trunk is compressible. PTV is compressible. PTV is compressible. RT PerV is compressible. LT PerV is compressible. Procedure Exam performed portable in patient room. The exam was diagnostic. A preliminary report was called and/or faxed to the pt's RN. Interpretation Summary No evidence for acute deep venous thrombosis bilateral lower extremities with patent and compressible bilateral great saphenous veins. Ordering Physician: Rosita Naylor Performed By: Michael Marquez RVT
--- NOTE | 2019-02-15 17:30 | CON.PCM_ITS ---
Problem List (1) Neutropenia associated with autoimmune disease Status: Acute (2) Thrombocytopenia Status: Acute (3) Anemia Status: Acute Qualifiers: Anemia type: unspecified type Qualified Code(s): D64.9 - Anemia, unspecified (4) Pulmonary embolus Status: Acute Qualifiers: Pulmonary embolism type: unspecified Chronicity: acute Acute cor pulmonale presence: without acute cor pulmonale Qualified Code(s): I26.99 - Other pulmonary embolism without acute cor pulmonale - Consult Date of Consult: 02/15/[address] López regarding patient with pancytopenia, neutropenic fever and history of lupus. My final recommendation will be communicated to the nursing staff and by electronic medical record. - Reason for Consult History of Present Illness Date of Admission: 02/14/19 The patient is a 33 year old F with past medical history lupus and psoriatic arthritis presented to the emergency room because of fever and acute shortness of breath. Her symptoms started 2 days ago with low-grade fever of up to 100 Fahrenheit and shortness of breath on exertion, progressed to become even at rest sometimes, associated with dry cough, weakness and fatigue progressive over the last month. She also complained of vague chest pain, the left side of her chest, dull aching pain, aggravated by taking a deep breath, associated with shortness of breath and without relieving factors. She is on prednisone and Belimumab which she started 2 months ago. She is sexually active, no history of HIV or hepatitis. She started her menstrual bleeding recently. No history of DVT or pulmonary embolism. She denies any jaundice, or difficulty with urination. She continued to have fever of 102, shortness of breath continued to worsen and she decided to come to the emergency department. In the emergency department, she was febrile, tachycardic, blood pressure was stable and pulse ox was 98% on room air. Routine blood work was remarkable for severe leukopenia, neutropenia and thrombocytopenia, BMP was unremarkable. Lactic acid was 1.3. Chest x-ray showed cardiomegaly, no acute findings. Because patient was tachycardic, CTA chest done and revealed several nonocclusive small filling defect in the branches of the left upper lobe pulmonary artery, revealed large pericardial effusion and left basilar infiltrate and small left effusion. EKG reviewed sinus tachycardia without evidence of acute ischemic changes. 2D echocardiogram performed in the ER and revealed ejection fraction of 60%, small pericardial effusion, unable to estimate right ventricular systolic pressure. She was admitted for acute left upper lobe small non-occlusive PEs, left lower lung healthcare associated pneumonia, neutropenic fever and thrombocytopenia Past Medical History Past Medical History (Chronic Problems): Chronic Problems (Last Updated 02/14/19 @ 16:45 by Jackie Rivera MD) History of systemic lupus erythematosus (Chronic) cardiomyopathy (Chronic) GERD (gastroesophageal reflux disease) (Chronic) Obesity (BMI 30.0-34.9) (Chronic) Hypothyroidism (Chronic) Medical History: Medical History (Last Updated 02/14/19 @ 16:45 by Jackie Rivera MD) cardiomyopathy (Chronic) O90.3 GERD (gastroesophageal reflux disease) (Chronic) K21.9 Obesity (BMI 30.0-34.9) (Chronic) E66.9 Hypothyroidism (Chronic) E03.9 Psoriatic arthritis L40.50 Rheumatoid arthritis M06.9 Hypertension I10 Allergies acetaminophen [From Percocet] Allergy (Verified 02/14/19 11:15) Rash amoxicillin Allergy (Verified 02/14/19 11:15) Rash cephalexin [From Keflex] Allergy (Verified 02/14/19 11:27) Rash clindamycin Allergy (Verified 02/14/19 11:27) Rash doxycycline Allergy (Verified 02/14/19 11:15) Hives Iodinated Contrast- Oral and IV Dye [CONTRASTS] Allergy (Verified 02/14/19 11:15) Shortness of breath morphine Allergy (Verified 02/14/19 11:15) Swelling oxycodone Allergy (Verified 02/14/19 11:15) Hives Penicillins Allergy (Verified 02/14/19 11:15) Rash codeine Adverse Reaction (Verified 02/14/19 11:15) Nausea Home Medications: Ambulatory Orders Medication Instructions Recorded Belimumab [Benlysta] 200 mg SQ TONG 01/19/19 Duloxetine HCl 30 mg PO BID 01/19/19 Prednisone 10 mg PO DAILY 01/19/19 Surgical History: Surgical History (Last Updated 11/17/17 @ 13:53 by Luisa Negron) History of Z98.891 Surgical History: appendectomy, cholecystectomy, - - s/p 2 CS Lives: Spouse/ Significant Other Smoking Status: Never smoker Alcohol: None Drugs: None - *Family History Maternal History Items: No pertinent history Paternal History Items: Unknown Review of Systems Constitutional: Reports: Fever, Weakness, Fatigue. Denies: Anorexia, Chills Eyes: Denies: Blurred vision, Double vision, Drainage, Redness HEENT: Denies: Difficulty Hearing, Ear Pain, Eye Pain, Nasal Congestion, Sore Throat Cardiovascular: Reports: Chest Pain. Denies: Edema, Heaviness, Light Headedness, Orthopnea, Palpitations, Syncope Respiratory: Reports: Cough, Shortness of Breath, Shortness of breath at rest, Shortness of breath upon exertion. Denies: Sputum production, Wheezing Gastrointestinal: Reports: Nausea. Denies: Abdominal Pain, Constipation, Diarrhea, Vomiting Genitourinary: Denies: Dysuria, Frequency, Hematuria Musculoskeletal: Denies: Arm Pain, Back Pain, Foot Pain Skin: Denies: Dryness, Rash Neurological: Denies: Balance problems, Double vision, Change in Speech, Slurred speech, Confusion, Headaches, Incoordination Psychiatric: Denies: Anxiety, Depression Endocrine: Denies: Change in Body Habitus, Polydipsia Hypoxia (Acute) Pulmonary embolus (Acute) Pericardial effusion (Acute) Neutropenia associated with autoimmune disease (Acute) Fever and neutropenia (Acute) Thrombocytopenia (Acute) Vital Signs - 24 hr Temp Pulse Resp BP Pulse Ox 02/15/19 15:00 94 02/15/19 14:50 98.5 F 95 16 144/89 H 95 02/15/19 09:00 94 02/15/19 08:50 97.6 F L 105 H 18 146/108 H 94 02/15/19 07:17 97 02/15/19 03:05 89 02/15/19 02:50 97.5 F L 94 21 H 124/76 H 96 02/15/19 00:44 98.2 F 89 29 H 119/78 95 02/14/19 23:00 104 H 02/14/19 21:04 141 H 02/14/19 20:49 101.7 F H 02/14/19 19:14 93 02/14/19 18:50 113 H 02/14/19 18:44 99.5 F H 118 H 18 151/95 H 95 02/14/19 17:35 130 H 02/14/19 17:29 100.4 F H 136 H 18 157/115 H 98 - Physical Exam General: Alert, Oriented x3, Cooperative, - - Moderately short of breath. HEENT: PERRLA, Normocephalic; rash with open sores on face. Oral: Moist Mucosa, No Gingival or Mucosal Lesions/ Ulcerations; no thrush. Neck: Supple, No JVD, Negative Carotid Bruits, Trachea Midline, Thyroid Normal Size and Texture Lungs: No rhonchi, No wheeze, Diminished, Rales, - - Decreased breath sounds on the left base, coarse crackles in the left base. Cardiovascular: Regular rate, Regular Rhythm, Normal S1, Normal S2, PMI Normal, Tachycardic Abdomen: bowel Sounds Present, Soft, Non Tender, Non-Distended, No Hepato- splenomegaly, Obese Extremities: No clubbing, No cyanosis, No edema Skin: No rashes, No breakdown Lymphatic: No Cervical, Supraclavicular, or Inguinal Adenopathy Neurological: Cranial nerves II-XII grossly intact, Motor Exam 5/5 strength throughout Psych/Mental Status: Normal Affect, Appropriate, Alert and oriented to time, place, person, mood and affect Microbiology Past 72 Hours 02/14/19 Unknown Urine, Clean Catch Streptococcus pneumoniae Antigen (M - Final 02/14/19 Unknown Urine, Clean Catch Legionella Antigen - Final Laboratory Results 02/14/19 12:00: TSH 5.05 H 02/14/19 18:37: Troponin I < 0.015 02/14/19 21:05: Troponin I < 0.015 02/14/19 23:20: Troponin I < 0.015 02/14/19 : Urine Color Yellow, Urine Clarity Clear, Urine pH 7.0, Ur Specific [place] 1.005, Urine Protein 500 H, Urine Glucose (UA) Normal, Urine Ketones Negative, Urine Occult Blood 150 H, Urine Nitrite Negative, Urine Bilirubin Negative, Urine Urobilinogen 4 H, Ur Leukocyte Esterase 25 H, Urine RBC 5-10 SEEN, Urine WBC 0-5 SEEN, Ur Squamous Epith Cells 0-5 SEEN, Urine Bacteria 0 SEEN, Urine Mucus 0 SEEN 02/15/19 05:12: WBC 1.1 L*, RBC 3.60 L, Hgb 10.2 L, Hct 31.1 L, MCV 86.4, MCH 28.3, MCHC 32.8, RDW 13.2, RDW Differential 42.2, Plt Count 52 L, MPV 12.1 H, Immature Gran % (Auto) 1.800 H, Neut % (Auto) 46.9 L, Lymph % (Auto) 16.2 L, [place] % (Auto) 35.1 H, Eos % (Auto) 0.0, Baso % (Auto) 0.0, Absolute Neuts (auto) 0.5 L, Absolute Lymphs (auto) 0.18 L, Total Counted Not Reportable, Differential Comment SCANNED, Diff Path Review February foll, Platelet Estimate MOD 02/15/19 05:12: Sodium 139, Potassium 4.2, Chloride 108 H, Carbon Dioxide 23.0, Anion Gap 8, BUN 15, Creatinine 0.77, Estim Creat Clear Calc 91.76, Est GFR (MDRD) Af Amer 109, Est GFR (MDRD) Non-Af 90, BUN/Creatinine Ratio 19.5, Glucose 116 H, Calcium 7.8 L Oxygen Delivery Method Room Air Weight: 275 lb Body Mass Index (BMI) 45.7 Clinical Impression(s) from Imaging Studies Chest X-Ray 02/14/19 12:35 IMPRESSION: Cardiomegaly and mild degree of CHF. Electronically Signed: Kyle Almanzar, at 13:27 EDT , Service support , Chest CTA 02/14/19 12:46 IMPRESSION: Small nonocclusive intraluminal filling defects in the branches of the left upper lobe pulmonary artery. Large pericardial effusion. Left basilar atelectasis and/or infiltrate with a small left effusion. N.B. : The above information has been verbally conveyed by Kyle Almanzar to Valente Dodson MD, on 02/14/2019 14:29:02 (ET). Electronically Signed: Kyle Almanzar, at 14:30 EDT , Service support , ADDENDUM: 02/14/19 1437 IMPRESSION: Small nonocclusive intraluminal filling defects in the branches of the left upper lobe pulmonary artery. Large pericardial effusion. Left basilar atelectasis and/or infiltrate with a small left effusion. N.B. : The above information has been verbally conveyed by Kyle Almanzar to Valente Dodson MD, on 02/14/2019 14:29:02 (ET). Electronically Signed: Kyle Jenelle, at 14:30 EDT , Service support , Peripheral blood smear: Normocytic normochromic anemia with increased anisocytosis. There is no schistocytes or reticulocytosis Platelet is decrease, neutropenia as well as lymphopenia. No immature granulocytes or blasts. Assessment/Plan 33-year-old with history of psoriatic arthritis and lupus presenting with neutropenic fever, thrombocytopenia and pulmonary embolism. Patient present with cough and shortness of breath, etiology unknown- possible viral versus hospital-acquired pneumonia. Recommendations: -Continue Eliquis but hold if platelet count is less than 50,000 or if she has problems with bleeding on Eliquis -Bilateral venous doppler study of lower extremity tomorrow morning -Check reticulocyte panel, LDH, haptoglobin, and liver functions -Respiratory viral panel, HIV, and hepatitis ABC -Follow-up with infectious disease. -I would stop her Belimumab [Benlysta], because of grade 4 neutropenia and thrombocytopenia may be related to her underlying disease or treatment for lupus. Neutropenia and Belimumab treatment may put her at significant risks for recurrent infection. cc: Dr. Susanne Sanders; Dr. Cordell López, Dr. Hiram Carter, Dr. Becker Dayday
[2019-02-15 18:52] LABS: Immature Platelet Fraction 18.4 % (1.0-7.9); RET-HE 18.8 pg (30-35); Reticulocyte Count 1.31 % (0.5-1.5)
[2019-02-15 18:54] LABS: AST(SGOT) 20 U/L (15-37); Alanine Aminotransfer ALT/SGPT 13 U/L (13-56); Albumin, Serum 1.9 g/dL (3.2-5.0); Alkaline Phosphatase 48 U/L (45-117); Bilirubin, Direct 0.08 mg/dL (0.00-0.30); Globulin 4.2 g/dL (2.2-4.2); LDH 200 U/L (84-246); Protein, Total 6.1 g/dL (6.4-8.2)
--- NOTE | 2019-02-15 18:57 | PN_ITS ---
Subjective: Patient was seen and examined today, I talked briefly with infectious diseases who wrote for hematology to see the patient in consultation today. There is a question whether the patient has a left lower lobe pneumonia, infectious diseases stop the patient's Levaquin today and maintained her on meropenem. It is unclear what has caused the patient's neutropenia, she had been seen last year for the same reason and had seen Dr. Madrid as an outpatient but according to the patient, no sure diagnosis was given to the patient why she was neutropenic. 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 - Physical Exam General: Alert, Oriented x3, Cooperative, No apparent distress, Well developed, Well nourished HEENT: Atraumatic, PERRLA, EOMI, Normocephalic Oral: Moist Mucosa Neck: Supple, No JVD, No Nuchal Rigidity, Trachea Midline, Thyroid Normal Size and Texture Lungs: Clear to auscultation, Normal air movement, No rhonchi, No wheeze, No rales Cardiovascular: Regular rate, Regular Rhythm, Normal S1, Normal S2, No murmurs, No Ectopic Activity, PMI Normal, No rub noted, No Gallop Abdomen: Bowel Sounds Present, Soft, Non Tender, Non-Distended, No hernias noted Extremities: No clubbing, No cyanosis, No edema, Capillary Refill Less than 3 Seconds Skin: No rashes, No breakdown Musculoskeletal: No Tenderness to Palpation of Joints or Extremities Neurological: Cranial nerves II-XII grossly intact, Neuro grossly intact, Sensory exam intact to light touch and pain Psych/Mental Status: Normal Affect, Appropriate, Alert and oriented to time, place, person, mood and affect Vital Signs Temp Pulse Resp BP Pulse Ox 98.5 F 94 16 144/89 H 95 02/15/19 14:50 02/15/19 15:00 02/15/19 14:50 02/15/19 14:50 02/15/19 14:50 Oxygen Delivery Method Room Air Weight: 124.7 kg Body Mass Index (BMI) 45.7 Intake and Output for Last 24 Hours 02/13/19 02/14/19 02/15/19 23:59 23:59 23:59 Intake Total 1534 / 1534 1879.3 / 1879.3 Balance 1534 / 1534 1879.3 / 1879.3 Microbiology Past 72 Hours 02/14/19 Unknown Streptococcus pneumoniae Antigen (M - Final Urine, Clean Catch 02/14/19 Unknown Legionella Antigen - Final Urine, Clean Catch Laboratory Tests Past 24 Hrs 02/14/19 02/14/19 02/14/19 18:37 21:05 23:20 WBC RBC Hgb Hct MCV MCH MCHC RDW RDW Differential Plt Count MPV Immature Gran % (Auto) Neut % (Auto) Lymph % (Auto) [place] % (Auto) Eos % (Auto) Baso % (Auto) Absolute Neuts (auto) Absolute Lymphs (auto) Total Counted Differential Comment Diff Path Review Platelet Estimate Immature Plt Fraction Retic Count Immature Retic Fraction Retic Hgb Equivalent Sodium Potassium Chloride Carbon Dioxide Anion Gap BUN Creatinine Estim Creat Clear Calc Est GFR (MDRD) Af Amer Est GFR (MDRD) Non-Af BUN/Creatinine Ratio Glucose Calcium Total Bilirubin Direct Bilirubin AST ALT Alkaline Phosphatase Lactate Dehydrogenase Troponin I < 0.015 < 0.015 < 0.015 Total Protein Albumin Globulin 02/15/19 02/15/19 02/15/19 05:12 05:12 05:12 WBC 1.1 L* RBC 3.60 L Hgb 10.2 L Hct 31.1 L MCV 86.4 MCH 28.3 MCHC 32.8 RDW 13.2 RDW Differential 42.2 Plt Count 52 L MPV 12.1 H Immature Gran % (Auto) 1.800 H Neut % (Auto) 46.9 L Lymph % (Auto) 16.2 L [place] % (Auto) 35.1 H Eos % (Auto) 0.0 Baso % (Auto) 0.0 Absolute Neuts (auto) 0.5 L Absolute Lymphs (auto) 0.18 L Total Counted Not Reportable Differential Comment SCANNED Diff Path Review May foll Platelet Estimate MOD DEC Immature Plt Fraction 18.4 H Retic Count 1.31 Immature Retic Fraction 2.70 L Retic Hgb Equivalent 18.8 L Sodium 139 Potassium 4.2 Chloride 108 H Carbon Dioxide 23.0 Anion Gap 8 BUN 15 Creatinine 0.77 Estim Creat Clear Calc 91.76 Est GFR (MDRD) Af Amer 109 Est GFR (MDRD) Non-Af 90 BUN/Creatinine Ratio 19.5 Glucose 116 H Calcium 7.8 L Total Bilirubin Direct Bilirubin AST ALT Alkaline Phosphatase Lactate Dehydrogenase Troponin I Total Protein Albumin Globulin 02/15/19 05:12 WBC RBC Hgb Hct MCV MCH MCHC RDW RDW Differential Plt Count MPV Immature Gran % (Auto) Neut % (Auto) Lymph % (Auto) [place] % (Auto) Eos % (Auto) Baso % (Auto) Absolute Neuts (auto) Absolute Lymphs (auto) Total Counted Differential Comment Diff Path Review Platelet Estimate Immature Plt Fraction Retic Count Immature Retic Fraction Retic Hgb Equivalent Sodium Potassium Chloride Carbon Dioxide Anion Gap BUN Creatinine Estim Creat Clear Calc Est GFR (MDRD) Af Amer Est GFR (MDRD) Non-Af BUN/Creatinine Ratio Glucose Calcium Total Bilirubin 0.30 Direct Bilirubin 0.08 AST 20 ALT 13 Alkaline Phosphatase 48 Lactate Dehydrogenase 200 Troponin I Total Protein 6.1 L Albumin 1.9 L Globulin 4.2 Medical Necessity - Tobacco Use Smoking Status: Never smoker Assessment/Plan All Active Problems (Last Updated 02/14/19 @ 16:45 by Jackie Rivera MD) Hypoxia (Acute) Thrombocytopenia (Acute) Anemia (Acute) Pulmonary embolus (Acute) Pericardial effusion (Acute) Neutropenia associated with autoimmune disease (Acute) Fever and neutropenia (Acute) #1 acute pulmonary embolus-patient will remain on Eliquis #2 possible community-acquired pneumonia-I talked with infectious diseases about her care today, patient's Levaquin was discontinued and she will remain on meropenem for now. I am not sure if patient really has pneumonia, she has very little symptoms consistent with a community-acquired pneumonia. #3 neutropenia-possibly secondary to rheumatoid arthritis, labs will be mon itored #4 rheumatoid arthritis #5 Lupus erythematosus Code Visit Inpatient E&M: 63778 Subs Hosp L2
[2019-02-15] MEDS: Zolpidem Tartrate 5 MG Tablet PO (22:54)
[2019-02-16] VITALS (7 sets, daily range): BP systolic 147–149; BP diastolic 96–104; PULSE 98–141; RESP 16–18; TEMP 36.9–37; O2SAT 92–100
[2019-02-16] MEDS: Hydrocortisone Sod Succinate 100 MG/2 ML Vial 50 MG IV (05:05)
[2019-02-16] MEDS: 0.9% NaCl Peripheral Flush Adult/Peds IV ×2 (05:06→05:08)
[2019-02-16] MEDS: Ibuprofen 600 MG Tablet PO (05:24)
[2019-02-16 06:12] LABS: Absolute Lymphocyte Count 0.27 X10^3/ul (0.83-4.51); Absolute Neutrophil Count 1.7 X10^3/uL (2.0-7.7); Hemoglobin 10.9 g/dl (12.0-15.0); Lymphocyte # 0.27 X10^3/ul (4.0); Lymphocyte % 10.7 % (19-41); Mean Corpuscular Hgb 28.2 pg (27.0-32.0); Mean Corpuscular Volume 85.5 fL (81-99); Mean Platelet Vol. 13.2 fl (6.2-12.0); Monocyte# 0.49 X10^3/uL; Monocyte% 19.4 % (0-10); Neutrophil # 1.72 X10^3/uL (2.7-7.7); Neutrophil % 68.3 % (47-70); Platelet Count 74 K/mm3 (150-450); RBC Distribution Width SD 39.7 fl (35.1-43.9); Red Blood Count 3.86 M/mm3 (4.2-5.4); White Blood Count 2.5 K/mm3 (4.4-11.0)
[2019-02-16 06:14] LABS: Differential Indicated SCAN CRITERIA MET; POSITIVE COUNT NO; POSITIVE DIFFERENTIAL YES; POSITIVE MORPHOLOGY YES
[2019-02-16 06:24] LABS: Differential Comment SCANNED; Platelet Estimate SLT DEC (ADEQ)
[2019-02-16 07:10] LABS: HIV - WCH Non-Reactive (Nonreactive)
[2019-02-16] MEDS: guaiFENesin 1,200 MG Tablet 1200 MG PO (07:52)
[2019-02-16] MEDS: DULoxetine Hcl 30 MG Capsule PO (07:52)
[2019-02-16] MEDS: APIXABAN 5 MG TABLET 10 MG PO (07:53)
[2019-02-16 09:24] LABS: Pathologist Review Reviewed
[2019-02-16 09:29] LABS: Pathologist Review Reviewed
--- NOTE | 2019-02-16 10:11 | PCM.DC ---
- Discharge Diagnoses Current Active Problems: Current Active and Chronic Problems (Last Updated 02/14/19 @ 16:45 by Jackie Rivera MD) Hypoxia (Acute) Thrombocytopenia (Acute) Anemia (Acute) History of systemic lupus erythematosus (Chronic) Pulmonary embolus (Acute) Pericardial effusion (Acute) Neutropenia associated with autoimmune disease (Acute) Fever and neutropenia (Acute) You will use the following diet at home:: No restrictions Your food should be the consistency of: Regular Your liquids should be the consistency of: Regular/Thin Discharge Activity: Return to Normal Activity Return to work on:: 02/20/19 Weight Bearing Status: Full weight bearing Additional Instructions: Take Tylenol for pain-avoid Ibuprofen, aspirin, and Alleve. 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 about when to resume [place] Allergies/Adverse Reactions: Allergies acetaminophen [From Percocet] Allergy (Verified 02/14/19 11:15) Rash amoxicillin Allergy (Verified 02/14/19 11:15) Rash cephalexin [From Keflex] Allergy (Verified 02/14/19 11:27) Rash clindamycin Allergy (Verified 02/14/19 11:27) Rash doxycycline Allergy (Verified 02/14/19 11:15) Hives Iodinated Contrast- Oral and IV Dye [CONTRASTS] Allergy (Verified 02/14/19 11:15) Shortness of breath morphine Allergy (Verified 02/14/19 11:15) Swelling oxycodone Allergy (Verified 02/14/19 11:15) Hives Penicillins Allergy (Verified 02/14/19 11:15) Rash codeine Adverse Reaction (Verified 02/14/19 11:15) Nausea Medications to take at Discharge Duloxetine HCl 30 mg PO BID 01/19/19 Prednisone 10 mg PO DAILY 01/19/19 Acetaminophen [Tylenol Tablet] 650 mg PO Q6H PRN PRN tablet 02/16/19 Apixaban [Eliquis] 10 mg PO BID #12 tablet 02/16/19 Primary Care Physician: Susanne Sanders DO [Primary Care Provider] - Please follow up with your Primary Care Physician in: in one week Test Results: Test results from this visit will be discussed in further detail at your follow-up appointment, if applicable.
--- NOTE | 2019-02-16 10:13 | PCM.PN.ID ---
Patient Problems: Active and Suspected Problems (Last Updated 02/14/19 @ 16:45 by Jackie Rivera MD) Hypoxia (Acute) Thrombocytopenia (Acute) Anemia (Acute) Pulmonary embolus (Acute) Pericardial effusion (Acute) Neutropenia associated with autoimmune disease (Acute) Fever and neutropenia (Acute) Subjective: Chest pain improved, no sputum, no fever overnight, feeling much better. - Physical Exam General: Alert, Cooperative, No apparent distress Lungs: Rales - L base Cardiovascular: Regular rate, Regular Rhythm Abdomen: Soft, Non Tender, Non-Distended Skin: Rash Present - stable Vital Signs Temp Pulse Resp BP Pulse Ox 98.6 F 107 H 16 149/104 H 100 02/16/19 07:58 02/16/19 07:58 02/16/19 07:58 02/16/19 07:58 02/16/19 07:58 Oxygen Delivery Method Room Air Weight: 124.7 kg Body Mass Index (BMI) 45.7 Intake and Output for Last 24 Hours 02/14/19 02/15/19 02/16/19 23:59 23:59 23:59 Intake Total 1534 / 1534 2410.3 / 2410.3 600 / 600 Balance 1534 / 1534 2410.3 / 2410.3 600 / 600 Microbiology Past 72 Hours 02/14/19 Unknown Streptococcus pneumoniae Antigen (M - Final Urine, Clean Catch 02/14/19 Unknown Legionella Antigen - Final Urine, Clean Catch Laboratory Tests Past 24 Hrs 02/14/19 02/15/19 02/15/19 12:00 05:12 05:12 WBC RBC Hgb Hct MCV MCH MCHC RDW RDW Differential Plt Count MPV Immature Gran % (Auto) Neut % (Auto) Lymph % (Auto) [place] % (Auto) Eos % (Auto) Baso % (Auto) Absolute Neuts (auto) Absolute Lymphs (auto) Total Counted Differential Comment Diff Path Review Reviewed Reviewed Platelet Estimate Immature Plt Fraction 18.4 H Retic Count 1.31 Immature Retic Fraction 2.70 L Retic Hgb Equivalent 18.8 L Haptoglobin Total Bilirubin Direct Bilirubin AST ALT Alkaline Phosphatase Lactate Dehydrogenase Total Protein Albumin Globulin Hepatitis A IgM Ab Hepatitis A Ab Total Hep Bs Antigen Hep B Core Total Ab Hep B Core IgM Ab HIV 1&2 Antibody 02/15/19 02/16/19 02/16/19 05:12 05:14 05:14 WBC RBC Hgb Hct MCV MCH MCHC RDW RDW Differential Plt Count MPV Immature Gran % (Auto) Neut % (Auto) Lymph % (Auto) [place] % (Auto) Eos % (Auto) Baso % (Auto) Absolute Neuts (auto) Absolute Lymphs (auto) Total Counted Differential Comment Diff Path Review Platelet Estimate Immature Plt Fraction Retic Count Immature Retic Fraction Retic Hgb Equivalent Haptoglobin Total Bilirubin 0.30 Direct Bilirubin 0.08 AST 20 ALT 13 Alkaline Phosphatase 48 Lactate Dehydrogenase 200 Total Protein 6.1 L Albumin 1.9 L Globulin 4.2 Hepatitis A IgM Ab Pending Hepatitis A Ab Total Pending Hep Bs Antigen Pending Hep B Core Total Ab Pending Hep B Core IgM Ab Pending HIV 1&2 Antibody Non-Reactive 02/16/19 02/16/19 05:14 05:14 WBC 2.5 L RBC 3.86 L Hgb 10.9 L Hct 33.0 L MCV 85.5 MCH 28.2 MCHC 33.0 RDW 13.0 RDW Differential 39.7 Plt Count 74 L MPV 13.2 H Immature Gran % (Auto) 1.600 H Neut % (Auto) 68.3 Lymph % (Auto) 10.7 L [place] % (Auto) 19.4 H Eos % (Auto) 0.0 Baso % (Auto) 0.0 Absolute Neuts (auto) 1.7 L Absolute Lymphs (auto) 0.27 L Total Counted Not Reportable Differential Comment SCANNED Diff Path Review Platelet Estimate SLT DEC Immature Plt Fraction Retic Count Immature Retic Fraction Retic Hgb Equivalent Haptoglobin Pending Total Bilirubin Direct Bilirubin AST ALT Alkaline Phosphatase Lactate Dehydrogenase Total Protein Albumin Globulin Hepatitis A IgM Ab Hepatitis A Ab Total Hep Bs Antigen Hep B Core Total Ab Hep B Core IgM Ab HIV 1&2 Antibody Medical Necessity - Tobacco Use Smoking Status: Never smoker Route of nutrition/ use of supplements: [] Nutritional Intake: [] IV Site: [] [place] Catheter: [] - Assessment/Plan Antibiotics: [] Assessment/Plan: [] Active and Suspected Problems (Last Updated 02/14/19 @ 16:45 by Jackie Rivera MD) Hypoxia (Acute) Pulmonary embolus (Acute) Pericardial effusion (Acute) Neutropenia associated with autoimmune disease (Acute) Fever and neutropenia (Acute) Neutropenic fever - Counts improved, ANC now 1700. No fever. Feeling much better. Appreciate heme eval. Will stop meropenem, ok for d/c home from [facility]. She is to call with any fever or worsening SOB. Will follow, d/w Dr. Liu.
--- NOTE | 2019-02-16 10:48 | PHA.DC.MC ---
Pharmacy Service has performed discharge medication reconciliation and counseling for this patient. The patient's discharge medication list was reviewed for discrepancies and discrepancies were resolved. The patient was counseled on the following discharge medications and changes in medications for homegoing were reviewed. 1. ELIQUIS The Reason for Use, instructions for use, and potential side effects were reviewed for all new medications. The patient's questions regarding all of their medications were answered. The patient was able to verbally demonstrate an understanding of their discharge medications. Home Medications Duloxetine HCl 30 mg PO BID 01/19/19 Prednisone 10 mg PO DAILY 01/19/19 Acetaminophen [Tylenol Tablet] 650 mg PO Q6H PRN PRN tablet 02/16/19 Apixaban [Eliquis] 10 mg PO BID #12 tablet 02/16/19
--- NOTE | 2019-02-16 11:07 | CASEMGMT ---
Dr Liu called Eliquis into [facility] previously and he states that the pharmacist states there was no co-pay for the Eliquis at this time. Godfrey REDDING CM
--- NOTE | 2019-02-16 12:06 | NURSING ---
Reviewed and agreed on all charting with Vicente Banks RN
[2019-02-17 05:06] LABS: HEPATITIS B SURFACE AG Negative (Negative); Hepatitis A AB, Total Negative (Negative); Hepatitis A IgM Antibody Negative (Negative); Hepatitis B Core AB IgM Negative (Negative); Hepatitis B Core Ab Total Negative (Negative); Hepatitis C Ab <0.1 s/co ratio (0.0-0.9)
[2019-02-17 12:17] LABS: Haptoglobin 368 mg/dL (34-200)
[2019-02-17 12:24] LABS: Hep B Surface Antibodies Non Reactive (.)
--- NOTE | 2019-02-17 13:29 | CASEMGMT ---
VAHID STRICKLAND Discharge Follow-Up Phone Call. Lace: 11 Strata: 3 Discharge Date: 02/16/19 Adm Dx: Acute PE, pneumonia, febrile neutropenia Attempted discharge follow-up phone call. No answer. Left message for pt to return call to DREDGE CAPTAINHyacinth REDDING CM if she has any questions about the discharge instructions, medications, appts, or any other concerns. Phone number provided. Leo KING RN, CM
--- NOTE | 2019-02-19 18:58 | PCM.DC.SUM ---
Discharge Date and Diagnosis Date of Admission: 02/14/19 Date of Discharge: 02/16/19 - Primary Discharge Diagnosis #1 acute pulmonary embolus #2 Community-acquired pneumonia was ruled out #3 neutropenia-possibly secondary to rheumatoid arthritis #4 rheumatoid arthritis #5 Lupus erythematosus #6 thrombocytopenia-etiology unclear #7 morbid obesity - Secondary Discharge Diagnosis Chronic Problems (Last Updated 02/14/19 @ 16:45 by Jackie Rivera MD) History of systemic lupus erythematosus (Chronic) cardiomyopathy (Chronic) GERD (gastroesophageal reflux disease) (Chronic) Obesity (BMI 30.0-34.9) (Chronic) Hypothyroidism (Chronic) Hospital Course and Treatment Operations: None Procedures: 2-D Echocardiogram Summary of Care Provided: The patient is a 33 year old F seen in the emergency room with a chief complaint of shortness of breath, patient also had complaints of fever and sore throat. Work-up in the emergency room included a CT of the chest which showed small nonocclusive filling defects in keeping with pulmonary emboli in the left upper lobe pulmonary artery, large pericardial effusion was read out, and infiltrate and/or atelectasis of the left lung base with a small left pleural effusion was noted. Labs showed the patient to be neutropenic with an absolute neutrophil count of 200, urinalysis was unremarkable, and troponin was normal. Patient was admitted to PCU for pulmonary embolus, she was started on Eliquis, she was treated for possible left lobe healthcare associated pneumonia with IV antibiotics, and her labs were monitored. CTA of the chest had reported a large pericardial effusion, 2D echocardiogram was done and it revealed no large pericardial effusion with normal EF. Patient was seen in consultation by infectious diseases who did not feel the patient had a pneumonia, over the next 48 hours the patient's white blood cell count increased, she did not require oxygen. On 02/16/2019, patient was seen and examined: On examination she appeared in good health and spirits. Vital signs as documented. Skin warm and dry and without overt rashes. Neck without JVD. Lungs clear. Heart exam notable for regular rhythm, normal sounds and absence of murmurs, rubs or gallops. Abdomen unremarkable and without evidence of organomegaly, masses, or abdominal aortic enlargement. Extremities nonedematous. Neuro: Cranial nerves II through XII are grossly intact, no focal motor deficits were noted, sensation to light touch and pinprick is intact. Psych: Patient is alert and oriented x3, she does not appear anxious or depressed On 02/16/2019, patient was seen and examined and felt to be in stable condition for discharge home - Physical Exam Vital Signs Temp Pulse Resp BP Pulse Ox 98.6 F 118 H 16 149/104 H 100 02/16/19 07:58 02/16/19 10:00 02/16/19 07:58 02/16/19 07:58 02/16/19 07:58 Oxygen Delivery Method Room Air Weight: 124.7 kg Body Mass Index (BMI) 45.7 Microbiology Past 72 Hours 02/14/19 16:20 Blood Culture - Preliminary Blood Culture (Wb) - Anticubital Right No growth in 48 hours. 02/14/19 16:05 Blood Culture - Preliminary Blood Culture (Wb) - Anticubital Left No growth in 48 hours. Discharge Activity: Return to Normal Activity Return to work on:: 02/20/19 Weight Bearing Status: Full weight bearing Home Medications: Medications to take at Discharge Duloxetine HCl 30 mg PO BID 01/19/19 Prednisone 10 mg PO DAILY 01/19/19 Acetaminophen [Tylenol Tablet] 650 mg PO Q6H PRN PRN tablet 02/16/19 Apixaban [Eliquis] 10 mg PO BID #12 tablet 02/16/19 Primary Care Physician: Susanne Sanders DO [Primary Care Provider] - Please follow up with your Primary Care Physician in: in one week Please Follow Up With: Susanne Sanders DO Disposition: Home Minutes spent on discharge:: 32 Patient Condition:: Stable Medical Necessity - Tobacco Use Smoking Status: Never smoker Meaningful Use Info Meaningful Use Diagnoses (Choose all that apply): VTE - VTE Anticoag overlap given w/in hospital stay or rx'd at dc?: No Pt receive overlap for 5 days?: No Reason overlap not ordered, prescribed, or given for 5 days: Treatment Not Indicated Code Visit Inpatient E&M: 35690 Disch Hosp
== END 2019-02-16 12:45 | disposition home or self-care (01) | DRG 176 ==
LOC: ED 11:35 → PCU 16:52
PROVIDERS: Internal Medicine Hematology & Oncology; Admitting Provider Hospitalist; Emergency Provider Emergency Medicine; Visit Provider Internal Medicine
DX: I26.99 Other pulmonary embolism without acute cor pulmonale (principal); Z68.42 Body mass index [BMI] 45.0-49.9, adult; M32.9 Systemic lupus erythematosus, unspecified; D70.9 Neutropenia, unspecified; D69.6 Thrombocytopenia, unspecified; R09.02 Hypoxemia; M06.9 Rheumatoid arthritis, unspecified; E66.01 Morbid (severe) obesity due to excess calories; K21.9 Gastro-esophageal reflux disease without esophagitis; E03.9 Hypothyroidism, unspecified; Z79.899 Other long term (current) drug therapy; Z79.52 Long term (current) use of systemic steroids
CPT/HCPCS: 36415; 71046; 71275; 80048; 80076; 81001; 83010; 83605; 83615; 84443; 84484; 85025; 85045; 86703; 86704; 86705; 86706; 86708; 86709; 86803; 87040; 87340; 87449; 87633; 93005; 93306; 93970; 94667; 99285; J2185; J7030; J7040; J7050; Q9957; Q9967; A4216; C8929; J2405

== ENCOUNTER 2019-03-05 11:43 | Emergency (ER) | payer OTHER, MEDICAID, SELFPAY ==
[2019-02-14 17:35] VITALS: BMI 45.7
[2019-03-05] VITALS (10 sets, daily range): BP systolic 112–159; BP diastolic 81–114; PULSE 126–144; RESP 19–49; TEMP 37.6–37.7; O2SAT 88–98; BMI 46.3
--- NOTE | 2019-03-05 11:59 | EKG12_ITS ---
Test Reason : SOB Blood Pressure : / mmHG Vent. Rate : 139 BPM Atrial Rate : 139 BPM P-R Int : 120 ms QRS Dur : 078 ms QT Int : 290 ms P-R-T Axes : 036 007 051 degrees QTc Int : 441 ms Sinus tachycardia Otherwise normal ECG Confirmed by LAYA TRONCOSO, MODE ([id number]), international editorial producer ELLIE BETTENCOURT ([id number]) on 03/06/2019 3:48:30 PM Referred By: BB Confirmed By:MODE ASIF MD
--- NOTE | 2019-03-05 12:08 | ED.DCSUM_ITS ---
History of Present Illness Chief Complaint: Shortness of Breath Informant: Patient Onset: Yesterday Activity at onset: - - grad onset, worse this AM Timing: Continuous Current Severity: Severe Maximum Severity: Severe Worsened by: Coughing, Exertion Relieved by: Nothing Associated Symptoms: Cough, Yellow sputum. Negative for: Fever Chest Pain: Continuous, Aching - central/sternal Narrative: Patient was here with similar symptoms 3 weeks ago when she was diagnosed with a pulmonary embolus, she was admitted to the hospital and had a cough at that time, she was treated with some antibiotics which were not continued as an outpatient. She has been on Eliquis. She states yesterday that seemed chest discomfort became a lot worse, it is up into her shoulders, her shoulders hurt worse when she takes a deep breath in addition to her chest. Yesterday the cough also became worse as well as sputum production which was not there before. She denies any hemoptysis. No fevers. No abdominal discomfort or nausea/vomiting. Her legs have felt a little swollen lately, no history of DVT and she was scanned while she was an inpatient. Prior similar symptoms: Yes - PE Recent Illness/Hospitalization: Yes - PE - Past Medical History (1) Anemia Status: Chronic (2) Pericardial effusion Status: Acute Comment: on CT 02/14/19 (3) Pulmonary embolus Status: Chronic (4) Thrombocytopenia Status: Chronic (5) GERD (gastroesophageal reflux disease) Status: Chronic (6) History of systemic lupus erythematosus Status: Chronic (7) Hypothyroidism Status: Chronic (8) cardiomyopathy Status: Resolved Past Medical History - Allergies and Home Meds Allergies/Adverse Reactions: Allergies acetaminophen [From Percocet] Allergy (Verified 03/05/19 11:44) Rash amoxicillin Allergy (Verified 03/05/19 11:44) Rash cephalexin [From Keflex] Allergy (Verified 03/05/19 11:44) Rash clindamycin Allergy (Verified 03/05/19 11:44) Rash doxycycline Allergy (Verified 03/05/19 11:44) Hives Iodinated Contrast- Oral and IV Dye [CONTRASTS] Allergy (Verified 03/05/19 11:44) Shortness of breath morphine Allergy (Verified 03/05/19 11:44) Swelling oxycodone Allergy (Verified 03/05/19 11:44) Hives Penicillins Allergy (Verified 03/05/19 11:44) Rash codeine Adverse Reaction (Verified 03/05/19 11:44) Nausea Primary Care Physician: Susanne Sanders DO [Primary Care Provider] - Surgical History: appendectomy, cholecystectomy, - - s/p 2 CS Smoking Status: Never smoker - Family History Maternal Family History: Reports: No pertinent history Paternal Family History: Reports: Unknown Review of Systems General: Reports: Malaise. Denies: Chills, Fever, Sweats Eyes: Denies: Visual changes - bilaterally, Diplopia ENT: Denies: Rhinorrhea, Sore throat Cardiovascular: Reports: Chest pain. Denies: Palpitations Respiratory: Reports: Dyspnea, Cough, Sputum Gastrointestinal: Denies: Abdominal pain, Nausea, Vomiting, Diarrhea, Melena, Hematochezia Genitourinary: Denies: Dysuria, Hematuria, Frequency Musculoskeletal: Reports: Arthralgias - chronic, Swelling. Denies: Back pain, Extremity Pain Skin: Denies: Rash, Wounds Neurological: Denies: Headache, Weakness, Numbness Psych: Reports: Anxiety. Denies: Suicidal thoughts Physical Exam Vital Signs/Narrative: Vital Signs Temp Pulse Resp BP Pulse Ox 03/05/19 11:45 99.6 F H 130 H 36 H 159/114 H 88 Inital Vital Signs reviewed: Yes General: Well nourished, Well developed, Obese, Acute Distress - mild respiratory Head: Normocephalic, Atraumatic Eyes: Perrl, EOMI ENT: Moist mucous membranes, No rhinorrhea Neck: Supple, Nontender, No JVD Cardiovascular: Regular rhythm, No murmurs, Tachycardia Respiratory: CTA bilaterally, Chest nontender, - - speaking in 5-10 word sentences; mild distress, dyspneic. Abdomen: Soft, Nontender, Nondistended, Normal bowel sounds Back: Nontender, Normal Inspection Extremities: Nontender, No edema. Negative for: Calf Tenderness Skin: Normal color, No rash, No Trauma Neurological: Alert, Oriented x3, Cranial nerves II-XII grossly intact, Normal Strength, Normal Sensation Psychological: Normal Mood, - - a little anxious Diagnostic/Tx/Re-eval Impressions Chest X-Ray 03/05/19 12:11 IMPRESSION: Possible right basilar infiltrate/atelectasis. Cardiomegaly. Pericardial effusion cannot be excluded. Electronically Signed: Jose G Damon DO at 13:14 EDT Tel [phone], Service support , 03/05/19 12:11 Chest 1 View (Portable) [RAD] Stat Laboratory Results 03/05/19 03/05/19 03/05/19 12:43 13:11 13:11 PT 12.5 INR 1.0 APTT 28.9 Sodium Potassium Chloride Carbon Dioxide Anion Gap BUN Creatinine Estim Creat Clear Calc Est GFR (MDRD) Af Amer Est GFR (MDRD) Non-Af BUN/Creatinine Ratio Glucose Lactic Acid Calcium Total Bilirubin AST ALT Alkaline Phosphatase Troponin I Total Protein Albumin Globulin Albumin/Globulin Ratio Urine Color Yellow Urine Clarity Sl. Cloudy Urine pH 6.0 Ur Specific [place] 1.015 Urine Protein 500 H Urine Glucose (UA) Normal Urine Ketones Negative Urine Occult Blood 150 H Urine Nitrite Negative Urine Bilirubin Negative Urine Urobilinogen Normal Ur Leukocyte Esterase 25 H Urine RBC 0-5 SEEN Urine WBC 10-25 SEEN Ur Squamous Epith Cells 0 SEEN Amorphous Sediment 1+ Urine Bacteria 0 SEEN Fine Granular Casts 0-5 SEEN Urine Mucus 0 SEEN 03/05/19 03/05/19 03/05/19 13:11 13:11 13:53 WBC 5.2 Corrected WBC RBC 3.87 L Hgb 10.8 L Hct 33.2 L MCV 85.8 MCH 27.9 MCHC 32.5 RDW 14.2 RDW Differential 43.9 Plt Count 56 L MPV Immature Gran % (Auto) 0.600 Neut % (Auto) 90.0 H Lymph % (Auto) 2.3 L [place] % (Auto) 7.1 Eos % (Auto) 0.0 Baso % (Auto) 0.0 Immature Gran # (Auto) Absolute Neuts (auto) 4.7 Absolute Lymphs (auto) 0.12 L Absolute Monos (auto) Total Counted Not Reportable Neutrophils % (Manual) Band Neutrophils % Lymphocytes % (Manual) Monocytes % (Manual) Eosinophils % (Manual) Basophils % (Manual) Metamyelocytes % Myelocytes % Promyelocytes % Blast Cells % Plasma Cell % (Manual) Other Cells % Lymphocytes # Nucleated RBCs/100 WBC Differential Comment Diff Path Review Hypersegmented Neuts Atypical Lymphocytes Reactive Lymphocytes Smudge Cells Eosinophilia # Basophilia # Toxic Granulation Dohle Bodies Saad Rods Platelet Estimate MKD DEC Plt Morphology Comment RBC Morphology Polychromasia Hypochromasia Poikilocytosis Basophilic Stippling Anisocytosis Microcytosis Macrocytosis Spherocytes Sickle Cells Target Cells Tear Drop Cells Ovalocytes Stomatocytes Ambriz-Modale Bodies Tj Cells Bite Cells Acanthocytes (Spur) Rouleaux Schistocytes PT INR APTT Sodium 135 L Potassium 5.3 H Chloride 103 Carbon Dioxide 23.0 Anion Gap 9 BUN 14 Creatinine 0.86 Estim Creat Clear Calc 82.16 Est GFR (MDRD) Af Amer 96 Est GFR (MDRD) Non-Af 80 BUN/Creatinine Ratio 16.3 Glucose 217 H Lactic Acid 1.2 Calcium 7.8 L Total Bilirubin 0.40 AST 44 H ALT 22 Alkaline Phosphatase 68 Troponin I < 0.015 Total Protein 6.7 Albumin 2.2 L Globulin 4.5 H Albumin/Globulin Ratio 0.5 L Urine Color Urine Clarity Urine pH Ur Specific [place] Urine Protein Urine Glucose (UA) Urine Ketones Urine Occult Blood Urine Nitrite Urine Bilirubin Urine Urobilinogen Ur Leukocyte Esterase Urine RBC Urine WBC Ur Squamous Epith Cells Amorphous Sediment Urine Bacteria Fine Granular Casts Urine Mucus - Rhythm Strip Rhythm Strip: Sinus Tach Rate: 139 Ectopy: None - EKG Initial EKG Interpretation: No Acute Injury Pattern, Sinus Tachycardia, - - subtle electrical alternans present Prior: Unchanged Treatment - Dyspnea: Albuterol Repeat Evaluation: Improved - but still in pain - Medical Decision Making With the possibility of an infiltrate in the right lower lobe on x-ray, along with her symptoms of now having a significantly productive cough and more shortness of breath, I am treating her empirically for pneumonia. Technically this is healthcare associated, however she is allergic to many antibiotics, and all of the ones we would typically use for healthcare associated pneumonia so I am giving her Levaquin. Blood cultures were sent. Her lactate is within normal limits. I did a bedside ultrasound with our screening ED ultrasound, she definitely has a significant pericardial effusion which was seen on her CT scan 3 weeks ago which also showed several subsegmental pulmonary emboli. She has been on Eliquis since then. She is breathing better after an albuterol treatment, still complaining of lots of discomfort when she breathes, so this was treated with fentanyl and now she is feeling a little better still. However still breathing in the 40s as far as respiratory rate. She is not hypoxic. She is very tachycardic. I see subtle electrical alternans on the EKG. My concern is that her effusion is related to her symptoms, and may be worsening, which could be the tamponade which clinically she is not in right now given no JVD and normal blood pressure level of alertness. At this time clinically she is in no distress. I discussed with cardiology for the purpose of obtaining a stat echocardiogram. However, Dr. Shen believes this patient would be better served at a tertiary care center, which I am not in disagreement with. Discussed with the patient, she prefers to go to an [facility] since it is the closest, and prefers [facility] when given options. Discussed w/ several physicians there, accepted by Dr. Wahl. I do not think a repeat CTA chest will change our disposition right now, so since we are transferring her regardless, I held off on repeating that. ED Disposition - Plan for ED Patient: Disposition: [facility] Diagnosis: HCAP (healthcare-associated pneumonia), Pulmonary embolism, Pericardial effusion without cardiac tamponade, Chest pain, History of systemic lupus erythematosus, Sepsis, Anticoagulated Referrals: Susanne Sanders DO [Primary Care Provider] -
--- NOTE | 2019-03-05 12:11 | RAD_ITS ---
STUDY: X-RAY CHEST REASON FOR EXAM: Female, 33 years old. Shortness of breath TECHNIQUE: Frontal view COMPARISON: February 14, 2019 FINDINGS: The lungs are not fully expanded. Questionable right basilar infiltrate/atelectasis. Cardiomegaly. Normal mediastinum and benedict. Normal visualized pulmonary arteries. Normal visualized aortic arch and descending thoracic aorta. Normal visualized thoracic spine. Normal visualized ribs, clavicles, and shoulders. There is no demonstrated abnormality of the visualized soft tissue structures of the upper abdomen. RAD/Chest 1 View (Portable) IMPRESSION: Possible right basilar infiltrate/atelectasis. Cardiomegaly. Pericardial effusion cannot be excluded. Electronically Signed: Jose G Damon DO at 13:14 EDT Tel [phone], Service support ,
[2019-03-05] MEDS: Albuterol 2.5 MG/3 ML VIAL.NEB. INHALATION (12:12)
[2019-03-05 12:47] LABS: Bacteria 0 SEEN /hpf (None Seen); Mucous, Urine 0 SEEN /hpf (<or=2+); Squamous Epithelial Cells - UA 0 SEEN /hpf (5-10)
[2019-03-05] MEDS: 0.9% Normal Saline 1,000 ML 150 ML IV (13:21)
[2019-03-05 13:23] LABS: Color, Urine Yellow (Yellow); Glucose, Dipstick Normal (Normal); Ketone-Dipstick Negative (Negative); Leukocyte Esterase-Dipstick 25 /ul (Negative); Nitrite-Dipstick Negative (Negative); Occult Blood-Urine 150 /ul (Negative); Protein-Dipstick 500 mg/dl (Negative); Specific Gravity, Urine 1.015 (1.002-1.030); Urine Bilirubin Dipstick Negative (Negative); Urine Clarity Sl. Cloudy (Clear); Urine Urobilinogen Normal (Normal)
[2019-03-05 13:30] LABS: White Blood Cells 10-25 SEEN /hpf (0-5)
[2019-03-05 13:31] LABS: Amorphous Sediment 1+; Red Blood Cells-Urine 0-5 SEEN /hpf (0-5)
[2019-03-05 13:32] LABS: Fine Granular Cast- Urine 0-5 SEEN /lpf (0-5)
[2019-03-05 13:43] LABS: Partial Thromboplast Time 28.9 Seconds (24.1-36.2); Prothrombin Time (Protime)PT. 12.5 SECONDS (11.7-14.9)
[2019-03-05 13:54] LABS: ALB/GLOB Ratio 0.5 RATIO (0.9-2.4); AST(SGOT) 44 U/L (15-37); Alanine Aminotransfer ALT/SGPT 22 U/L (13-56); Albumin, Serum 2.2 g/dL (3.2-5.0); Alkaline Phosphatase 68 U/L (45-117); Anion Gap 9 (5-15); BUN 14 mg/dL (7-18); BUN/Creat Ratio 16.3 RATIO (10-20); Calcium,Total 7.8 mg/dL (8.5-10.1); Chloride 103 mmol/L (98-107); Creatinine, Serum 0.86 mg/dL (0.55-1.02); EST Glomerular Filtration Rate 80 mL/min (>60); Est Glom Filt Rate - Afr Amer 96 mL/min (>60); Estimated Creatinine Clearance 82.16 ml/min; Globulin 4.5 g/dL (2.2-4.2); Glucose 217 mg/dL (74-106); Lactic Acid 1.2 mmol/L (0.4-2.0); Potassium 5.3 mmol/L (3.5-5.1); Protein, Total 6.7 g/dL (6.4-8.2); Sodium Level 135 mmol/L (136-145)
[2019-03-05] MEDS: levoFLOXacin IV 750 MG/150 ML BAG 100 MG IV (14:41)
[2019-03-05 14:43] LABS: Platelet Estimate MKD DEC (ADEQ)
[2019-03-05 14:44] LABS: Absolute Lymphocyte Count 0.12 X10^3/ul (0.83-4.51); Absolute Neutrophil Count 4.7 X10^3/uL (2.0-7.7); Hematocrit 33.2 % (37-47); Hemoglobin 10.8 g/dl (12.0-15.0); Lymphocyte # 0.12 X10^3/ul (4.0); Lymphocyte % 2.3 % (19-41); Mean Corp Hgb Conc 32.5 g/gl (32-36); Mean Corpuscular Hgb 27.9 pg (27.0-32.0); Mean Corpuscular Volume 85.8 fL (81-99); Monocyte# 0.37 X10^3/uL; Monocyte% 7.1 % (0-10); Neutrophil # 4.68 X10^3/uL (2.7-7.7); POSITIVE COUNT NO; POSITIVE DIFFERENTIAL YES; POSITIVE MORPHOLOGY YES; Platelet Count 56 K/mm3 (150-450); RBC Distribution Width CV 14.2 % (11.6-14.6); RBC Distribution Width SD 43.9 fl (35.1-43.9); Red Blood Count 3.87 M/mm3 (4.2-5.4); White Blood Count 5.2 K/mm3 (4.4-11.0)
[2019-03-05 14:45] LABS: Differential Indicated SCAN CRITERIA MET
[2019-03-05] MEDS: fentaNYL 100 MCG/2 ML Ampul 50 MCG IV ×2 (14:50→16:48)
--- NOTE | 2019-03-05 15:35 | NURSING ---
CALLING [facility] FOR TRANSFER
--- NOTE | 2019-03-05 16:09 | NURSING ---
DR CHENTE HAMM
--- NOTE | 2019-03-05 16:28 | NURSING ---
[facility] [id number] NURSE TO NURSE [phone] ELLISON
--- NOTE | 2019-03-05 16:41 | NURSING ---
[facility] CALLED FOR TRANSPORT.
== END 2019-03-05 18:00 | disposition short-term general hospital (02) ==
PROVIDERS: Emergency Provider Emergency Medicine
DX: A41.9 Sepsis, unspecified organism (principal); J18.9 Pneumonia, unspecified organism; Y95 Nosocomial condition; I26.99 Other pulmonary embolism without acute cor pulmonale; I31.3 Pericardial effusion (noninflammatory); R07.9 Chest pain, unspecified; M32.9 Systemic lupus erythematosus, unspecified; Z86.711 Personal history of pulmonary embolism; Z79.01 Long term (current) use of anticoagulants; Z79.899 Other long term (current) drug therapy
CPT/HCPCS: 36415; 71045; 80053; 81001; 83605; 84484; 85025; 85610; 85730; 87040; 87086; 93005; 94640; 96365; 96366; 96375; 96376; 99285; J7030; J7040; A4216

== ENCOUNTER 2019-04-26 16:53 | Emergency (ER) | payer MEDICAID, SELFPAY ==
[2019-03-05 11:45] VITALS: BMI 46.3
[2019-04-26 16:54] VITALS: BP 170/117; PULSE 110; RESP 22; TEMP 37; O2SAT 98; BMI 46.2
[2019-04-26 16:59] VITALS: RESP 22; O2SAT 100
--- NOTE | 2019-04-26 17:10 | EKG12_ITS ---
Test Reason : CP Blood Pressure : / mmHG Vent. Rate : 107 BPM Atrial Rate : 107 BPM P-R Int : 130 ms QRS Dur : 082 ms QT Int : 318 ms P-R-T Axes : 029 001 024 degrees QTc Int : 424 ms Sinus tachycardia Inferior infarct , age undetermined Abnormal ECG Confirmed by CANDIDA TRONCOSO, CHELSEA ([id number]), film or videotape editor JUSTEN SHEA ([id number]) on 04/28/2019 12:28:23 PM Referred By: ROBERTO/AGUSTIN/DIGNA/ОЛЬГА Confirmed By:LUIS TIRADO MD
--- NOTE | 2019-04-26 17:15 | RAD_ITS ---
STUDY: X-RAY CHEST REASON FOR EXAM: Female, 34 years old. Chest pain TECHNIQUE: Frontal view of the chest COMPARISON: X-ray chest March 05, 2019 FINDINGS: The lungs are clear. There are no pleural effusions. There is no pneumothorax. The heart is enlarged. The visualized osseous structures are within normal limits. RAD/Chest 1 View (Portable) IMPRESSION: No acute thoracic pathology. Cardiomegaly. Electronically Signed: Artie Guaman, at 17:30 EDT Tel , Service support ,
[2019-04-26 17:32] LABS: Absolute Lymphocyte Count 0.36 X10^3/ul (0.83-4.51); Absolute Neutrophil Count 5.9 X10^3/uL (2.0-7.7); Hematocrit 33.4 % (37-47); Hemoglobin 10.7 g/dl (12.0-15.0); Lymphocyte # 0.36 X10^3/ul (4.0); Lymphocyte % 5.4 % (19-41); Mean Corpuscular Hgb 27.6 pg (27.0-32.0); Mean Corpuscular Volume 86.1 fL (81-99); Mean Platelet Vol. 11.9 fl (6.2-12.0); Monocyte# 0.39 X10^3/uL; Monocyte% 5.8 % (0-10); Neutrophil # 5.92 X10^3/uL (2.7-7.7); Neutrophil % 88.7 % (47-70); Platelet Count 123 K/mm3 (150-450); RBC Distribution Width CV 15.7 % (11.6-14.6); RBC Distribution Width SD 49.2 fl (35.1-43.9); Red Blood Count 3.88 M/mm3 (4.2-5.4); White Blood Count 6.7 K/mm3 (4.4-11.0)
[2019-04-26 17:33] LABS: Differential Indicated SCAN CRITERIA MET; POSITIVE COUNT NO; POSITIVE DIFFERENTIAL YES; POSITIVE MORPHOLOGY YES
--- NOTE | 2019-04-26 17:33 | CT_ITS ---
STUDY: CTA CHEST REASON FOR EXAM: Female, 34 years old. Dyspnea RADIATION DOSAGE (If Supplied By Facility): CTDIvol = ( 13.85 ) mGy, DLP = ( 536.69 ) mGycm TECHNIQUE: The examination was performed with the intravenous administration of 100ml IV Isovue 300. Post-processing of the angiographic images was performed, with multiplanar reformation and 3D reconstruction. Individualized dose optimization techniques were used for this CT. COMPARISON: CT chest February 14, 2019 FINDINGS: Normal enhancement of the main pulmonary artery and right and left pulmonary arteries. Normal enhancement of the bilateral peripheral pulmonary arteries. There is no demonstrated pulmonary embolism. Normal thoracic aorta and visualized great vessels. There is no demonstrated aortic dissection. Heart size is normal. There is a moderate pericardial effusion. Normal mediastinum. Normal hilar regions. Normal visualized trachea and bronchi. The lungs are well expanded. There is a right lower lobe 3 mm nodule, series 2 image 87. There is a right lower lobe 4 mm nodule, series 2 image 111. Several small right sided pleural based nodules are noted. Normal pleura. Normal chest wall structures. Normal osseous structures. Normal visualized upper abdomen. CT/CTA Chest W/WO Contrast IMPRESSION: No evidence of pulmonary embolus. Moderate pericardial effusion. Right lower lobe 3 mm nodules. One-year follow-up is recommended. No consolidation. Electronically Signed: Artie Guaman, at 19:42 EDT Tel , Service support ,
[2019-04-26 17:42] LABS: Anion Gap 8 (5-15); BUN 23 mg/dL (7-18); BUN/Creat Ratio 26.9 RATIO (10-20); Calcium,Total 8.4 mg/dL (8.5-10.1); Chloride 107 mmol/L (98-107); Creatinine, Serum 0.86 mg/dL (0.55-1.02); EST Glomerular Filtration Rate 80 mL/min (>60); Est Glom Filt Rate - Afr Amer 97 mL/min (>60); Estimated Creatinine Clearance 81.38 ml/min; Glucose 228 mg/dL (74-106); Potassium 4.3 mmol/L (3.5-5.1); Sodium Level 141 mmol/L (136-145)
[2019-04-26 17:54] LABS: Differential Comment SCANNED
[2019-04-26 18:02] VITALS: BP 164/111; PULSE 104; RESP 20; TEMP 36.6; O2SAT 100
[2019-04-26] MEDS: MethylPREDNISolone 125 MG/2 ML Vial IV (18:05)
[2019-04-26] MEDS: DiphenhydrAMINE 50 MG/ML Syringe 25 MG IV (18:05)
--- NOTE | 2019-04-26 18:10 | ED.RN ---
PT MEDICATED FOR CT. SCHEDULED AT 1909
[2019-04-26 18:19] LABS: D-Dimer Quantitative (DVT/PE) 1.81 FEU/ug/m (0.27-0.49)
[2019-04-26 19:43] VITALS: BP 161/112; PULSE 100; RESP 28; TEMP 36.7; O2SAT 100
--- NOTE | 2019-04-26 19:57 | ED.DCSUM_ITS ---
- ER Visit Summary Date of Service: 04/26/19 Chief Complaint: Chest pain shortness of breath History of Present Illness: The patient is a 34 F history of recent pulmonary emboli and then also shortly after diagnosed with PE developed pericardial effusion. She does have a history of lupus. Pericardial effusion had to be drained at [facility]. She states today she started having pleuritic chest pain or shortness of breath. Pain in both shoulders for the last week. She denies any fever, cough nor hemoptysis. Physical Examination: Young female no acute distress vital signs are stable afebrile. Pulse ox 90% on room air no hypoxia. HEENT exam unremarkable. Neck nontender no JVD no lymphadenopathy. Lungs clear to auscultation bilaterally. Heart tachycardic rate about 110 no murmur. Abdomen soft nontender. Extremities moves all 4. Calves nontender no edema no cords. Equal symmetrical radial pulses. Neurologically awake alert no focal motor deficits. Test Results: Chest x-ray portable one view shows moderate cardiomegaly read both myself and the radiologist. CBC shows white count 6. Hemoglobin 10.7 which is her baseline chronic anemia. Electro lites unremarkable glucose elevated to 28. Normal troponin d-dimer elevated 1.81 EKG sinus tachycardia rate of 107 no acute signs of [place] or ischemia. A CT of the chest was done there is no PE but there is a moderate pericardial effusion. Which is consistent with her history and symptoms. Emergency Department Course and Treatment: Patient treated with IV Solu-Medrol and Benadryl prior to the CAT scan. She was also given Toradol for the pain. She denied discussed all of her test results. Treatment Plan: Discussed with [facility] transfer line. Patient be transferred to their facility via ground squad. She is currently stable on repeat exam with stable vital signs. Disposition: Transfer to [facility]. Impression: Acute pleuritic chest pain and dyspnea secondary to recurrent moderate pericardial effusion History of prior pericardial effusion History of prior PE History of systemic lupus This note was generated with [employer] dictation software. It may contain incorrect words, spelling, and punctuation that were not noted in review of the chart prior to signing ED Disposition - Plan for ED Patient: Referrals: Susanne Sanders DO [Primary Care Provider] -
[2019-04-26] MEDS: Ketorolac 30 MG/ML Syringe IV (20:15)
--- NOTE | 2019-04-26 22:01 | ED.RN ---
[id number] attempt to call report x2 to [facility], informed nurse doing a drsg change on her pt will call back.
[2019-04-26 22:18] VITALS: BP 156/119; PULSE 104; RESP 24; TEMP 36.7; O2SAT 98
[2019-04-26 22:20] VITALS: BP 156/118; PULSE 97; RESP 24; TEMP 36.7; O2SAT 96
== END 2019-04-26 23:24 | disposition short-term general hospital (02) ==
PROVIDERS: Emergency Provider Emergency Medicine
DX: R07.89 Other chest pain (principal); R06.00 Dyspnea, unspecified; R79.89 Other specified abnormal findings of blood chemistry; I31.3 Pericardial effusion (noninflammatory); M32.9 Systemic lupus erythematosus, unspecified; Z86.711 Personal history of pulmonary embolism; D53.9 Nutritional anemia, unspecified; Z79.899 Other long term (current) drug therapy
CPT/HCPCS: 71045; 71275; 80048; 84484; 85025; 85379; 93005; 96374; 96375; 99285; J7030; Q9967; A4216

== ENCOUNTER → 2019-05-17 15:00 | Outpatient (CLI) | payer MEDICAID, SELFPAY ==
[2019-05-10 12:59] VITALS: BMI 46.0
--- NOTE | 2019-05-17 15:02 | ECHOL_ITS ---
Reason For Study: pericardial effusion Procedure This was a limited 2D transthoracic echocardiogram. The exam was diagnostic. Due to body habitus. Exam performed in department. Left Ventricle Normal LV size. Left ventricular systolic function is normal. The estimated ejection fraction is 65 %. No regional wall motion abnormalities noted. Right Ventricle Normal RV size. Normal systolic function. Atria Normal left atrium. Normal right atrium. Mitral Valve Normal mitral valve. Tricuspid Valve The tricuspid valve is not well visualized. Aortic Valve The aortic valve is not well visualized. Pericardium/Pleural Moderate pericardial effusion. There are no echocardiographic indications of cardiac tamponade. Effusion appears to be primarily around the LV posterior wall only. MMode/2D Measurements & Calculations LVIDd: 5.0 cm IVSd: 1.4 cm Ao root diam: 3.2 cm LVIDs: 3.0 cm LVPWd: 1.4 cm RVDd: 2.8 cm FS: 39.0 % LAV(MOD-bp): 42.2 ml EDV(MOD-sp4): 63.9 ml EDV(MOD-sp2): 44.6 ml ESV(MOD-sp4): 21.1 ml EF(MOD-sp2): 63.2 % LAV(MOD-bp) Indexed: 18.8 ml/m2 EF(MOD-sp4): 66.9 % LAV(MOD-sp2): 38.8 ml LAV(MOD-sp4): 44.7 ml SV(MOD-sp4): 42.7 ml SV(MOD-sp2): 28.2 ml LA A4 area: 17.2 cm2 LA dimension(2D): 4.0 cm RA A4 area: 11.8 cm2 Interpretation Summary Normal LV size. Left ventricular systolic function is normal. The estimated ejection fraction is 65 %. Moderate pericardial effusion. There are no echocardiographic indications of cardiac tamponade. Effusion appears to be primarily around the LV posterior wall only Ordering Physician: Lon Aranda Referring Physician: Susanne Sanders Performed By: Tonia German, SARA, RVT
== END ==
PROVIDERS: Referring Provider Internal Medicine Cardiovascular Disease; Visit Provider Internal Medicine Cardiovascular Disease
DX: I31.3 Pericardial effusion (noninflammatory) (principal); I26.99 Other pulmonary embolism without acute cor pulmonale; I10 Essential (primary) hypertension
CPT/HCPCS: 93308

== ENCOUNTER 2019-05-28 13:08 | Emergency (ER) | payer MEDICAID, SELFPAY ==
[2019-05-10 12:59] VITALS: BMI 46.0
[2019-05-28 13:09] VITALS: BP 152/114; PULSE 122; RESP 16; TEMP 36.6; O2SAT 98; BMI 46.0
--- NOTE | 2019-05-28 13:39 | ED.VIS.GEN ---
History of Present Illness Chief Complaint: Female C/O Detail of Chief Complaint: Vaginal pain Informant: Patient Onset: Days Context: Gradual Onset Current Severity: Moderate Maximum Severity: Moderate Narrative: Patient presents with vaginal pain for the past 9 days. Patient states that on 19 May she was pulling around with her boyfriend. He was using his fingers on her but there was no actual intercourse. She states that she felt as if something tore. Since that time she had increasing pain. She tried to do a self-exam and thought she saw some lesions. She has had dysuria. Last menstrual cycle was a week and a half ago. Past Medical History - Allergies and Home Meds Allergies/Adverse Reactions: Allergies acetaminophen [From Percocet] Allergy (Verified 05/28/19 13:11) Rash amoxicillin Allergy (Verified 05/28/19 13:11) Rash cephalexin [From Keflex] Allergy (Verified 05/28/19 13:11) Rash clindamycin Allergy (Verified 05/28/19 13:11) Rash doxycycline Allergy (Verified 05/28/19 13:11) Hives Iodinated Contrast Media [CONTRASTS] Allergy (Verified 05/28/19 13:11) Shortness of breath morphine Allergy (Verified 05/28/19 13:11) Swelling oxycodone Allergy (Verified 05/28/19 13:11) Hives Penicillins Allergy (Verified 05/28/19 13:11) Rash codeine Adverse Reaction (Verified 05/28/19 13:11) Nausea Primary Care Physician: Susanne Sanders DO [Primary Care Provider] - Surgical History: appendectomy, cholecystectomy, - - s/p 2 CS Smoking Status: Never smoker - Family History Maternal Family History: Reports: No pertinent history Paternal Family History: Reports: Unknown Review of Systems General: Denies: Chills, Fever Eyes: Denies: Visual changes - bilaterally ENT: Denies: Bilateral ear pain Cardiovascular: Denies: Chest pain Respiratory: Denies: Dyspnea, Cough Gastrointestinal: Denies: Abdominal pain, Nausea, Vomiting Genitourinary: Reports: Dysuria Musculoskeletal: Denies: Back pain Skin: Reports: Wounds Neurological: Denies: Headache Endocrine: Denies: Polyuria, Polydipsia Hematologic: Denies: Easy bruising Allergy: Denies: Uticaria Physical Exam Vital Signs/Narrative: Vital Signs Temp Pulse Resp BP Pulse Ox 05/28/19 13:09 97.9 F 122 H 16 152/114 H 98 Inital Vital Signs reviewed: Yes General: Well nourished, Well developed Eyes: Perrl ENT: Moist mucous membranes Neck: Supple Cardiovascular: Regular rate, Regular rhythm Respiratory: No distress, CTA bilaterally Abdomen: Soft, Nontender : - - On examination, patient has approximately 8 linear superficial lacerations around the vaginal orifice. They appear to be infected with yeast. I do not see any ulcerations or signs of herpes or other STD. She is not having any bleeding. Extremities: Nontender Skin: Normal color Neurological: Alert, Oriented x3 Psychological: Normal affect Diagnostic/Tx/Re-eval Laboratory Results 05/28/19 05/28/19 13:50 13:50 Urine Color Yellow Urine Clarity Sl. Cloudy Urine pH 6.0 Ur Specific [place] 1.020 Urine Protein 500 H Urine Glucose (UA) Normal Urine Ketones 5 H Urine Occult Blood 50 H Urine Nitrite Negative Urine Bilirubin Negative Urine Urobilinogen Normal Ur Leukocyte Esterase 100 H Urine RBC 0 SEEN Urine WBC 25-50 SEEN Ur Squamous Epith Cells 0-5 SEEN Urine Bacteria RARE Fine Granular Casts 0-5 SEEN Urine Mucus 0 SEEN Urine Test Negative - Medical Decision Making Patient be treated with a course of Bactrim for cystitis will be given Diflucan both now and at the end of her antibiotic course. She will follow-up with Dr. Alcantara, her [employer]. ED Disposition - Plan for ED Patient: Disposition: Home or Assisted Living Diagnosis: Superficial injury of perineum with infection Instructions: Vaginal Infection: Yeast (Candidiasis) Prescriptions: Smz/Tmp Ds [Bactrim Ds] 1 tablet PO BID #6 tablet Fluconazole [Diflucan] 150 mg PO X1 #1 tablet Hydrocodone Bitart/Apap 5-325 [Farley 5MG-325MG] 1 tablet PO Q6H PRN PRN 3 Days #10 tablet PRN Reason: Pain Referrals: Susanne Sanders DO [Primary Care Provider] - Savanna Alcantara MD [STAFF PHYSICIAN] - 1 Week
[2019-05-28 14:02] LABS: Mucous, Urine 0 SEEN /hpf (<or=2+); Red Blood Cells-Urine 0 SEEN /hpf (0-5)
[2019-05-28 14:04] LABS: Color, Urine Yellow (Yellow); Glucose, Dipstick Normal (Normal); Ketone-Dipstick 5 mg/dl (Negative); Leukocyte Esterase-Dipstick 100 /ul (Negative); Nitrite-Dipstick Negative (Negative); Occult Blood-Urine 50 /ul (Negative); Protein-Dipstick 500 mg/dl (Negative); Urine Bilirubin Dipstick Negative (Negative); Urine Clarity Sl. Cloudy (Clear); Urine Urobilinogen Normal (Normal)
[2019-05-28 14:05] LABS: Internal QC Validated? YES +Cl - CLEAR BKGD; Pregnancy, Urine Negative Negative
[2019-05-28 14:11] LABS: White Blood Cells 25-50 SEEN /hpf (0-5)
[2019-05-28 14:12] LABS: Squamous Epithelial Cells - UA 0-5 SEEN /hpf (5-10)
[2019-05-28 14:13] LABS: Bacteria RARE /hpf (None Seen); Fine Granular Cast- Urine 0-5 SEEN /lpf (0-5)
[2019-05-28 14:47] VITALS: PULSE 108; RESP 16
[2019-05-28] MEDS: Smz/Tmp Ds Tablet 1 TABLET PO (14:47)
[2019-05-28] MEDS: Fluconazole 100 MG Tablet 200 MG PO (14:47)
== END 2019-05-28 14:49 | disposition home or self-care (01) ==
PROVIDERS: Emergency Provider Emergency Medicine
DX: S31.41XA Laceration without foreign body of vagina and vulva, initial encounter (principal); X58.XXXA Exposure to other specified factors, initial encounter; Y93.89 Activity, other specified; B37.3 Candidiasis of vulva and vagina; N30.90 Cystitis, unspecified without hematuria
CPT/HCPCS: 81001; 81025; 87086; 87088; 99283

== ENCOUNTER 2019-06-24 09:28 | Emergency (ER) | payer MEDICAID, SELFPAY ==
[2019-06-24 09:30] VITALS: BP 152/119; PULSE 126; RESP 20; TEMP 37; O2SAT 92; BMI 45.2
--- NOTE | 2019-06-24 09:53 | EKG12_ITS ---
Test Reason : DYSRHYTHMIA Blood Pressure : / mmHG Vent. Rate : 111 BPM Atrial Rate : 111 BPM P-R Int : 130 ms QRS Dur : 084 ms QT Int : 324 ms P-R-T Axes : 024 -06 031 degrees QTc Int : 440 ms Sinus tachycardia Cannot rule out Anterior infarct , age undetermined Abnormal ECG Confirmed by SOLEDAD ASIF ([id number]), publishing editor ELLIE BETTENCOURT ([id number]) on 07/03/2019 2:52:37 PM Referred By: TAISHA Confirmed By:SOLEDAD ASIF
--- NOTE | 2019-06-24 09:53 | CT_ITS ---
STUDY: CTA CHEST REASON FOR EXAM: Female, 34 years old. Chest pain or shortness of breath. RADIATION DOSAGE (If Supplied By Facility): CTDIvol = ( 13.85 ) mGy, DLP = ( 534.71 ) mGycm TECHNIQUE: The examination was performed with the intravenous administration of 100 IV Isovue 370. Post-processing of the angiographic images was performed, with multiplanar reformation and 3D reconstruction. Individualized dose optimization techniques were used for this CT. COMPARISON: 02/14/2019. FINDINGS: There is limited enhancement of the main pulmonary artery and right and left pulmonary arteries. There is limited enhancement of the bilateral peripheral pulmonary arteries. There is no evidence of central pulmonary embolism. Small peripheral emboli are difficult to entirely exclude. There is atherosclerotic tortuosity of the aortic arch and descending thoracic aorta. There is no demonstrated aortic dissection. The heart size is normal. There is small to moderate pericardial effusion. Normal mediastinum. Normal hilar regions. Normal visualized trachea and bronchi. The lungs are well expanded. There are no pulmonary infiltrates. There are few small nodules in the right lower lobe measuring 2-3 mm in size essentially unchanged since the prior examination. There are no pleural effusions. Normal chest wall structures. Normal osseous structures. Normal visualized upper abdomen. CT/CTA Chest W/WO Contrast IMPRESSION: 1. No evidence of central pulmonary embolism. Suboptimal evaluation of the peripheral branches. 2. No infiltrate is seen. 3. Few small right lower lobe nodules for which a follow-up exam in 6 months is recommended. Electronically Signed: Sridhar Whittaker MD at 11:28 EDT Tel , Service support ,
[2019-06-24 10:00] VITALS: O2SAT 97
[2019-06-24 10:03] VITALS: O2SAT 96
[2019-06-24] MEDS: DiphenhydrAMINE 50 MG/ML Syringe 25 MG IV (10:12)
[2019-06-24] MEDS: MethylPREDNISolone 125 MG/2 ML Vial IV (10:12)
[2019-06-24 10:21] LABS: Anion Gap 5 (5-15); BUN 16 mg/dL (7-18); BUN/Creat Ratio 23.8 RATIO (10-20); Calcium,Total 7.7 mg/dL (8.5-10.1); Chloride 113 mmol/L (98-107); Creatinine, Serum 0.67 mg/dL (0.55-1.02); EST Glomerular Filtration Rate 106 mL/min (>60); Est Glom Filt Rate - Afr Amer 128 mL/min (>60); Estimated Creatinine Clearance 104.45 ml/min; Glucose 127 mg/dL (74-106); Potassium 3.8 mmol/L (3.5-5.1); Sodium Level 142 mmol/L (136-145)
[2019-06-24 10:28] LABS: Absolute Lymphocyte Count 0.24 X10^3/uL (0.83-4.51); Absolute Neutrophil Count 3.4 X10^3/uL (2.0-7.7); Basophil# 0.01 X10^3/uL; Basophil% 0.3 % (0-1); Eosinophil# 0.02 X10^3/uL; Eosinophils% 0.5 % (0-5); Hematocrit 36.1 % (37-47); Hemoglobin 11.6 g/dL (12.0-15.0); Lymphocyte # 0.24 X10^3/ul (4.0); Lymphocyte % 6.2 % (19-41); Mean Corp Hgb Conc 32.1 g/dL (32-36); Mean Corpuscular Hgb 27.1 pg (27.0-32.0); Mean Corpuscular Volume 84.3 fL (81-99); Monocyte# 0.21 X10^3/uL; Monocyte% 5.4 % (0-10); NRBC Flagged by Analyzer 0 % (0-5); Neutrophil # 3.41 X10^3/uL (2.7-7.7); Neutrophil % 87.3 % (47-70); POSITIVE DIFFERENTIAL YES; Platelet Count 73 K/mm3 (150-450); RBC Distribution Width CV 14.1 % (11.6-14.6); RBC Distribution Width SD 42.9 fl (35.1-43.9); Red Blood Count 4.28 M/mm3 (4.2-5.4); White Blood Count 3.9 K/mm3 (4.4-11.0)
[2019-06-24 10:30] LABS: Differential Indicated SCAN CRITERIA MET; International Normalized Ratio 0.9; Partial Thromboplast Time 27.1 Seconds (24.1-36.2)
[2019-06-24 10:54] LABS: Differential Comment SCANNED; Platelet Estimate SLT DEC (ADEQ); Platelet Morphology LARGE
--- NOTE | 2019-06-24 11:25 | ED.DCSUM_ITS ---
History of Present Illness Chief Complaint: Shortness of Breath Narrative: Patient presenting for evaluation secondary to chest pain. Patient unfortunately has a rather complicated history with a history of lupus, PEs, pericardial effusions that have required drainage in the past. Patient also has some proteinuria which recently has been getting worked up by nephrology. Patient states that up until 3 days ago she was off of her Eliquis due to preparations for a renal biopsy, but the renal biopsy was unable to be performed, and she restarted her Eliquis 3 days ago. Patient states that today she developed chest pain and shortness of breath. Pain is pleuritic worse with taking deep breath and is associated with feelings of shortness of breath. No orthopnea. Patient denies recent infections such as fever cough nausea vomiting or diarrhea. Review of systems otherwise negative. Past Medical History - Allergies and Home Meds Allergies/Adverse Reactions: Allergies acetaminophen [From Percocet] Allergy (Verified 06/24/19 09:29) Rash amoxicillin Allergy (Verified 06/24/19 09:29) Rash cephalexin [From Keflex] Allergy (Verified 06/24/19 09:29) Rash clindamycin Allergy (Verified 06/24/19 09:29) Rash doxycycline Allergy (Verified 06/24/19 09:29) Hives Iodinated Contrast Media [CONTRASTS] Allergy (Verified 06/24/19 09:29) Shortness of breath morphine Allergy (Verified 06/24/19 09:29) Swelling oxycodone Allergy (Verified 06/24/19 09:29) Hives Penicillins Allergy (Verified 06/24/19 09:29) Rash codeine Adverse Reaction (Verified 06/24/19 09:29) Nausea Primary Care Physician: Susanne Sanders DO [Primary Care Provider] - Past Medical History: - - Lupus, pulmonary embolism, pericardial effusion Surgical History: appendectomy, cholecystectomy, - - s/p 2 CS Smoking Status: Never smoker - Family History Maternal Family History: Reports: No pertinent history Paternal Family History: Reports: Unknown Review of Systems All systems negative except as indicated General: Denies: Chills, Fever Cardiovascular: Reports: Chest pain. Denies: Palpitations Respiratory: Reports: Dyspnea. Denies: Cough Gastrointestinal: Denies: Nausea, Vomiting Musculoskeletal: Reports: Swelling Physical Exam Vital Signs/Narrative: Vital Signs Temp Pulse Resp BP Pulse Ox 06/24/19 10:03 96 06/24/19 09:30 98.6 F 126 H 20 H 152/119 H 92 Inital Vital Signs reviewed: Yes General: Well nourished, Well developed, Obese, No Acute Distress Head: Normocephalic, Atraumatic Eyes: Perrl, EOMI ENT: Moist mucous membranes, No rhinorrhea Neck: Supple, Nontender Cardiovascular: Regular rhythm, No murmurs, Tachycardia, - - 2+ radial pulses bilaterally symmetric Respiratory: No distress, CTA bilaterally, Chest nontender Abdomen: Soft, Nontender, Nondistended, Normal bowel sounds Extremities: Nontender, Edema Skin: Normal color, No rash Neurological: Alert, Oriented x3, Cranial nerves II-XII grossly intact, Normal Strength, Normal Sensation Psychological: Normal affect, Normal Mood Diagnostic/Tx/Re-eval - EKG Initial EKG Interpretation: - - Regular rate of 111. Isoelectric ST segments, normal upright T waves. No evidence of acute ischemia or arrhythmia. No stigmata of right ventricular strain. - Medical Decision Making Patient presented secondary to chest pain. I did evaluate the patient with a bedside ultrasound which to my interpretation demonstrates pericardial effusion but does not seem to demonstrate tamponade pathology. CBC demonstrated a leukopenia of 3.9 with a neutrophilic predominance. Chemistry grossly unremarkable. Troponin was negative. Coags were found to be normal. CT angiogram of the chest does not show any evidence of central pulmonary emboli, although bolus timing was somewhat off and smaller vasculature was unable to be assessed. Patient continues to have chest pain in the emergency department and has some tachycardia with heart rates of 105-110 with normal oxygenation. Given her underlying general illness and do not feel that given her tachycardia and chest pain she is appropriate for discharge. I did attempt to get a formal echocardiogram to confirm my findings of pericardial effusion without tamponade pathology, but the echo techs had left today at 11 AM. Discussed patient's case with the hospitalist. Hospitalist requests cardiology consultation. Dr. Bajwa stated that he felt the patient potentially would be appropriate for staying at this facility, to hold Eliquis, and to start NSAID treatment. I informed the hospitalist of this. Hospitalist evaluated the patient, and requested the patient to be transferred as there is documentation from cardiology in the past the potentially the patient would benefit from a pericardial window. I will discuss this with [facility] as the patient has been seen there in the past. ED Disposition - Plan for ED Patient: Disposition: Acute Care Hospital [facility] Diagnosis: Chest pain, Pericardial effusion, Lupus, Tachycardia Referrals: Susanne Sanders DO [Primary Care Provider] -
[2019-06-24 11:42] VITALS: BP 135/95; PULSE 114; RESP 36; O2SAT 96
[2019-06-24 15:59] VITALS: BP 140/104; PULSE 113; RESP 20; O2SAT 95
[2019-06-24 17:10] VITALS: BP 137/110; PULSE 104; RESP 20; O2SAT 98
== END 2019-06-24 17:22 | disposition short-term general hospital (02) ==
PROVIDERS: Emergency Provider Emergency Medicine
DX: R07.9 Chest pain, unspecified (principal); I31.3 Pericardial effusion (noninflammatory); R00.0 Tachycardia, unspecified; M32.9 Systemic lupus erythematosus, unspecified; E66.9 Obesity, unspecified; Z86.711 Personal history of pulmonary embolism; Z79.01 Long term (current) use of anticoagulants; Z79.899 Other long term (current) drug therapy
CPT/HCPCS: 71275; 80048; 84484; 85025; 85610; 85730; 93005; 96374; 96375; 99285; Q9967; A4216

== ENCOUNTER → 2019-08-07 14:51 | Outpatient (CLI) | payer MEDICAID, SELFPAY ==
--- NOTE | 2019-08-07 15:00 | ECHOL_ITS ---
Reason For Study: PERICARDIAL EFFUSION Procedure This was a limited 2D transthoracic echocardiogram. The study was technically difficult. Exam performed in department. Left Ventricle Normal LV size. Left ventricular systolic function is normal. The estimated ejection fraction is 55 %. No regional wall motion abnormalities noted. Pericardium/Pleural Small pericardial effusion. There are no echocardiographic indications of cardiac tamponade. MMode/2D Measurements & Calculations LVIDd: 4.8 cm IVSd: 1.2 cm LVIDs: 3.3 cm LVPWd: 1.2 cm FS: 31.7 % Interpretation Summary Normal LV size. Left ventricular systolic function is normal. The estimated ejection fraction is 55 %. Small pericardial effusion. There are no echocardiographic indications of cardiac tamponade. Essentially unchanged from before Ordering Physician: Lon Aranda Referring Physician: NABEEL CASTANON Performed By: Ria Morgan, SARA, RVT
[2019-08-07 16:51] LABS: T4 Total, Thyroxin 12.4 ug/dL (4.8-13.9); Thyroid Stim Hormone (TSH) 1.54 uIU/mL (0.358-3.74)
== END ==
PROVIDERS: Referring Provider Internal Medicine Cardiovascular Disease; Visit Provider Internal Medicine Cardiovascular Disease
DX: I31.3 Pericardial effusion (noninflammatory) (principal); I26.99 Other pulmonary embolism without acute cor pulmonale; I10 Essential (primary) hypertension
CPT/HCPCS: 36415; 84436; 84443; 93308

== ENCOUNTER → 2019-10-24 13:56 | Outpatient (CLI) | payer MEDICAID, SELFPAY ==
[2019-08-16 12:41] VITALS: BMI 45.7
[2019-10-24 14:12] VITALS: BP 151/103; PULSE 95; RESP 18; TEMP 36.7; O2SAT 96; BMI 44.9
[2019-10-24 15:52] VITALS: BP 146/115; PULSE 84; RESP 18
== END ==
DX: M32.14 Glomerular disease in systemic lupus erythematosus (principal)
CPT/HCPCS: 96365; 96366; A4216; J2930

== ENCOUNTER → 2019-10-25 10:22 | Outpatient (CLI) | payer MEDICAID, SELFPAY ==
[2019-08-16 12:41] VITALS: BMI 45.7
[2019-10-24 14:12] VITALS: BMI 44.9
[2019-10-25 10:38] VITALS: BP 162/92; PULSE 98; RESP 16; TEMP 36.4; O2SAT 98; BMI 44.9
== END ==
DX: M32.14 Glomerular disease in systemic lupus erythematosus (principal)
CPT/HCPCS: 96365; 96366; A4216; J2930

== ENCOUNTER → 2019-10-26 10:34 | Outpatient (CLI) | payer MEDICAID, SELFPAY ==
[2019-08-16 12:41] VITALS: BMI 45.7
[2019-10-25 10:38] VITALS: BMI 44.9
[2019-10-26 11:17] VITALS: BP 180/116; PULSE 94; RESP 16; TEMP 36.4; O2SAT 99; BMI 44.9
== END ==
DX: M32.14 Glomerular disease in systemic lupus erythematosus (principal)
CPT/HCPCS: 96365; 96367; J7050; A4216; J2930; J9070

== ENCOUNTER → 2019-11-09 10:18 | Outpatient (CLI) | payer MEDICAID, SELFPAY ==
[2019-10-26 11:17] VITALS: BMI 44.9
[2019-11-09 10:25] VITALS: BP 160/100; PULSE 98; RESP 18; TEMP 36.2; O2SAT 100; BMI 44.4
== END ==
DX: M32.14 Glomerular disease in systemic lupus erythematosus (principal)
CPT/HCPCS: 96365; J7050; A4216; J9070

== ENCOUNTER 2019-11-10 07:38 | Emergency (ER) | payer MEDICAID, SELFPAY ==
[2019-11-09 10:25] VITALS: BMI 44.4
[2019-11-10 07:38] VITALS: BP 218/164; PULSE 130; RESP 24; TEMP 36.6; O2SAT 100; BMI 44.4
--- NOTE | 2019-11-10 07:52 | RAD_ITS ---
STUDY: X-RAY CHEST REASON FOR EXAM: Female, 34 years old. CHEST PAIN, SHORTNESS OF BREATH. HISTORY OF PULMONARY EMBOLISM IN LEFT LUNG, PERICARDIAL EFFUSION. TECHNIQUE: Single AP portable view of the chest. COMPARISON: Comparison is made with prior study dated April 26, 2019. FINDINGS: EKG electrodes are seen. The lungs are clear and expanded. There is no demonstrated pleural abnormality. There is moderate cardiac enlargement. Normal mediastinum and benedict. Normal visualized pulmonary arteries. Normal visualized aortic arch and descending thoracic aorta. Normal visualized thoracic spine. Normal visualized ribs, clavicles, and shoulders. There is no demonstrated abnormality of the visualized soft tissue structures of the upper abdomen. RAD/Chest 1 View (Portable) IMPRESSION: Moderate cardiomegaly. Electronically Signed: Kyle Almanzar, at 8:17 EST , Service support ,
--- NOTE | 2019-11-10 07:52 | EKG12_ITS ---
Test Reason : SOB Blood Pressure : / mmHG Vent. Rate : 106 BPM Atrial Rate : 106 BPM P-R Int : 136 ms QRS Dur : 088 ms QT Int : 328 ms P-R-T Axes : 034 -06 029 degrees QTc Int : 435 ms Sinus tachycardia Cannot rule out Anterior infarct (cited on or before 26-APR-2019) Abnormal ECG Confirmed by LAYA TRONCOSO, MODE ([id number]), writer editor JUSTEN SHEA ([id number]) on 11/13/2019 12:10:31 PM Referred By: JENNA Confirmed By:MODE ASIF MD
[2019-11-10 07:56] VITALS: O2SAT 98
--- NOTE | 2019-11-10 08:16 | ED.VISSUMM ---
- ER Visit Summary Date of Service: 11/10/19 Chief Complaint: Chest pain and shortness of breath History of Present Illness: The patient is a 34 F history of lupus, pericardial effusion, renal insufficiency C, type II diet-controlled diabetes and one prior pulmonary emboli. Patient states last night around midnight she awoke short of breath with anterior chest pain. Chest pain is worse supine. She denies any fever chills or chills. No significant cough. No hemoptysis. No leg pain or swelling. No recent travel or surgery. She has no known cardiac disease. States it feels similar to her prior pericardial effusion less so to her prior pulmonary emboli. Physical Examination: Young female no acute distress vital signs are stable. Patient blood pressure is elevated 218/164 as is her pulse at 130 both may be secondary to pain and anxiety. Pulse ox 90% on room air no signs of hypoxia. H EENT exam unremarkable. Neck nontender. No lymphadenopathy. Lungs clear to auscultation bilaterally. Heart regular rhythm rate about 120 no murmur chest wall diffusely tender anteriorly. Reproducible pain. No signs of trauma. No subcu air or crepitance. Abdomen is soft and nontender normal bowel sounds no peritoneal signs. Patient is moving all 4 extremities. Calves are nontender without edema or cords. Radial pulses are equal and symmetrical. Neurologically she is awake and alert with no focal motor deficits. Test Results: Portable 1 view chest x-ray shows cardiomegaly. She has had this on prior chest x-rays. No infiltrate. EKG sinus tachycardia rate of 106 with no acute signs of DC nor ischemia. CBC shows a normal white count of 3. Hemoglobin 11 which is her baseline platelet count of 60,000 again baseline. Chemistries unremarkable normal creatinine and gap. Troponin normal. D-dimer is elevated 0.7. Due to the d-dimer being elevated she will need a CTA of her chest also because of her prior history of a PE. She will be pretreated due to an IV contrast allergy before the CTA with IV Solu-Medrol and Benadryl. CTA as read by the radiologist reviewed by me shows bilateral lower lobe filling defects consistent with bilateral pulmonary emboli and also in the left upper lobe. All this was discussed the patient. Emergency Department Course and Treatment: Chest pain and subjective shortness of breath. Pulse ox 100%. Clinically I think is very unlikely this is a pulmonary emboli. She has reproducible chest wall pain. However it is in the differential diagnosis. Also I do not think it is cardiac unless it would be a recurrent effusion. We will undergo a cardiac work-up with a d-dimer. Treatment Plan: Patient I discussed treatment options. She did not want to be hospitalized. She was up and ambulated. She becomes tachycardic but does not get hypoxic. Her pulse ox remains 95% or better. She will be started on Eliquis 10 mg twice daily with the first dose given in ER. After 7 days of the 5 mg twice daily. I spoke to her primary care physician's office 1 of the physicians covering for her doctor. And they will ensure close follow-up. She knows to return if worse. She has been on Eliquis for a PE in the past. Disposition: Discharge Impression: Acute chest pain with subjective dyspnea secondary to bilateral lower lobe and left upper lobe multiple pulmonary emboli Reproducible chest wall pain Small pericardial effusion History of lupus History of prior pulmonary emboli and prior pericardial effusion This note was generated with [employer] dictation software. It may contain incorrect words, spelling, and punctuation that were not noted in review of the chart prior to signing ED Disposition - Plan for ED Patient: Referrals: Susanne Sanders DO [Primary Care Provider] -
[2019-11-10 09:19] VITALS: BP 156/109; PULSE 103; RESP 18; O2SAT 96
[2019-11-10 09:20] LABS: Absolute Lymphocyte Count 0.11 X10^3/uL (0.83-4.51); Absolute Neutrophil Count 3.3 X10^3/uL (2.0-7.7); Eosinophil# 0.01 X10^3/uL; Eosinophils% 0.3 % (0-5); Hematocrit 34.1 % (37-47); Lymphocyte # 0.11 X10^3/ul (4.0); Lymphocyte % 3.1 % (19-41); Mean Corp Hgb Conc 32.3 g/dL (32-36); Mean Corpuscular Hgb 27.1 pg (27.0-32.0); Mean Platelet Vol. 12.3 fl (6.2-12.0); Monocyte% 5.6 % (0-10); NRBC Flagged by Analyzer 0 % (0-5); Neutrophil # 3.28 X10^3/uL (2.7-7.7); POSITIVE COUNT YES; POSITIVE DIFFERENTIAL YES; Platelet Count 60 K/mm3 (150-450); RBC Distribution Width CV 14.2 % (11.6-14.6); RBC Distribution Width SD 42.4 fl (35.1-43.9); Red Blood Count 4.06 M/mm3 (4.2-5.4); White Blood Count 3.6 K/mm3 (4.4-11.0)
[2019-11-10] MEDS: Ketorolac 30 MG/ML Syringe IV (09:20)
[2019-11-10 09:22] LABS: Differential Indicated SCAN CRITERIA MET
[2019-11-10 09:34] LABS: Anion Gap 6 (5-15); BUN 11 mg/dL (7-18); BUN/Creat Ratio 19.5 RATIO (10-20); Calcium,Total 8.5 mg/dL (8.5-10.1); Chloride 103 mmol/L (98-107); Creatinine, Serum 0.56 mg/dL (0.55-1.02); EST Glomerular Filtration Rate 129 mL/min (>60); Est Glom Filt Rate - Afr Amer 156 mL/min (>60); Estimated Creatinine Clearance 124.97 ml/min; Glucose 173 mg/dL (74-106); Potassium 3.6 mmol/L (3.5-5.1); Sodium Level 138 mmol/L (136-145)
[2019-11-10 09:39] LABS: D-Dimer Quantitative (DVT/PE) 0.72 FEU/ug/m (0.27-0.49)
--- NOTE | 2019-11-10 09:42 | CT_ITS ---
STUDY: CTA CHEST REASON FOR EXAM: Female, 34 years old. CP, ELEVATED D-DIMER, HX PE RADIATION DOSAGE (If Supplied By Facility): CTDIvol = ( 11.48 ) mGy, DLP = ( 520.46 ) mGycm TECHNIQUE: The examination was performed with the intravenous administration of Isovue 370 100ml. Post-processing of the angiographic images was performed, with multiplanar reformation and 3D reconstruction. Individualized dose optimization techniques were used for this CT. COMPARISON: Comparison is made with prior examination dated June 24, 2019. FINDINGS: Intraluminal filling defects are seen in branches of the right lower lobe and left lower lobe pulmonary artery. There is also evidence of intraluminal filling defects in branches of the left upper lobe pulmonary artery.. Normal thoracic aorta and visualized great vessels. There is no demonstrated aortic dissection. Small pericardial effusion. Normal mediastinum. Normal hilar regions. Normal visualized trachea and bronchi. The lungs are well expanded. Mild increased markings at the left lung base suggestive of atelectasis. Normal pleura. Normal chest wall structures. Normal osseous structures. Normal visualized upper abdomen. CT/CTA Chest W/WO Contrast IMPRESSION: Bilateral pulmonary emboli as described. Small pericardial effusion. Electronically Signed: Kyle Almanzar, at 11:32 EST , Service support ,
[2019-11-10 09:50] LABS: Platelet Estimate MKD DEC (ADEQ)
[2019-11-10] MEDS: 0.9% Normal Saline 1,000 ML 999 ML IV (09:58)
[2019-11-10] MEDS: DiphenhydrAMINE 50 MG/ML Syringe 25 MG IV (09:58)
[2019-11-10] MEDS: MethylPREDNISolone 125 MG/2 ML Vial IV (09:59)
[2019-11-10 11:07] VITALS: BP 160/118; PULSE 97; RESP 16; O2SAT 94
--- NOTE | 2019-11-10 12:03 | NURSING ---
CALLED DR CASTANON [phone] MESSAGE AND CALL BACK NUMBER
--- NOTE | 2019-11-10 12:21 | ED.DEP ---
ED Disposition - Plan for ED Patient: Disposition: Home or Assisted Living Instructions: Pulmonary Embolism Prescriptions: Apixaban [Eliquis] 5 mg PO BID #60 tab Prescription Printed Hydrocodone/Acetaminophen [Charlton 5-325 Tablet] 1 ea PO 4X/DAY PRN PRN #20 tab PRN Reason: Pain Or Fever Prescription Printed Referrals: Susanne Sanders, [Primary Care Provider] - As soon as possible Additional Instructions: Return to the ER if you are feeling worse. Charlton for pain. Eliquis he will take 10 mg twice a day for the first week we gave you your first dose today we will need to take it again this evening. I would take it in the mornings and after dinner the next 7 days. After 7 days he will be on 5 mg twice a day. I spoke to her primary care physician's office he need to follow-up and see them next week. Return to the emergency department if you are feeling worse.
[2019-11-10 12:22] VITALS: BP 150/98; PULSE 128; RESP 22; O2SAT 97
[2019-11-10] MEDS: APIXABAN 5 MG TABLET 10 MG PO (12:35)
[2019-11-13 12:19] LABS: Pathologist Review Reviewed
== END 2019-11-10 12:35 | disposition home or self-care (01) ==
PROVIDERS: Emergency Provider Emergency Medicine
DX: I26.99 Other pulmonary embolism without acute cor pulmonale (principal); R07.89 Other chest pain; I31.3 Pericardial effusion (noninflammatory); M32.9 Systemic lupus erythematosus, unspecified; N28.9 Disorder of kidney and ureter, unspecified; E11.9 Type 2 diabetes mellitus without complications; Z86.711 Personal history of pulmonary embolism; Z79.01 Long term (current) use of anticoagulants; Z79.899 Other long term (current) drug therapy
CPT/HCPCS: 71045; 71275; 80048; 84484; 85025; 85379; 93005; 96361; 96374; 96375; 99285; J7030; Q9967; A4216

== ENCOUNTER → 2019-11-22 14:54 | Outpatient (CLI) | payer MEDICAID, SELFPAY ==
[2019-11-16 16:11] VITALS: BMI 44.4
== END ==
PROVIDERS: Referring Provider Nurse Practitioner Family; Visit Provider Nurse Practitioner Family
DX: M32.9 Systemic lupus erythematosus, unspecified (principal)
CPT/HCPCS: 93308; Q9957; A4216; C8924

== ENCOUNTER → 2019-11-23 10:30 | Outpatient (CLI) | payer MEDICAID, SELFPAY ==
[2019-10-26 11:17] VITALS: BMI 44.9
[2019-11-16 16:11] VITALS: BMI 44.4
[2019-11-23 10:52] VITALS: BP 148/89; PULSE 89; RESP 16; TEMP 36.4; O2SAT 97; BMI 44.6
[2019-11-23 12:47] VITALS: BP 142/93; PULSE 98; RESP 18
== END ==
DX: M32.14 Glomerular disease in systemic lupus erythematosus (principal)
CPT/HCPCS: 96413; J7050; A4216; J9070

== ENCOUNTER → 2019-12-07 10:26 | Outpatient (CLI) | payer MEDICAID, SELFPAY ==
[2019-10-26 11:17] VITALS: BMI 44.9
[2019-11-23 10:52] VITALS: BMI 44.6
[2019-12-07 10:52] VITALS: BP 153/93; PULSE 93; RESP 16; TEMP 36.9; O2SAT 97; BMI 44.4
== END ==
DX: M32.9 Systemic lupus erythematosus, unspecified (principal)
CPT/HCPCS: 96365; J7050; A4216; J9070

== ENCOUNTER → 2019-12-21 10:27 | Outpatient (CLI) | payer MEDICAID, SELFPAY ==
[2019-10-26 11:17] VITALS: BMI 44.9
[2019-12-07 10:52] VITALS: BMI 44.4
[2019-12-21 10:36] VITALS: BP 141/95; PULSE 98; RESP 18; TEMP 35.8; O2SAT 100; BMI 44.1
[2019-12-21 12:18] VITALS: BP 153/102; PULSE 94; RESP 18
== END ==
DX: M32.19 Other organ or system involvement in systemic lupus erythematosus (principal)
CPT/HCPCS: 96413; J7050; A4216; J9070

== ENCOUNTER → 2020-01-04 10:23 | Outpatient (CLI) | payer MEDICAID, SELFPAY ==
[2019-10-26 11:17] VITALS: BMI 44.9
[2019-12-21 10:36] VITALS: BMI 44.1
[2020-01-04] MEDS: 0.9% NaCl IVPB Med Flush (250 mL) 15 ML IV (10:33)
[2020-01-04 10:38] VITALS: BP 144/99; PULSE 67; RESP 16; TEMP 36.6; O2SAT 98; BMI 45.7
[2020-01-04 12:02] VITALS: BP 142/89; PULSE 88; RESP 16; TEMP 37.1
== END ==
DX: M32.19 Other organ or system involvement in systemic lupus erythematosus (principal)
CPT/HCPCS: 96413; J7050; A4216; J9070

== ENCOUNTER → 2020-04-08 14:49 | Outpatient (CLI) | payer MEDICAID, SELFPAY ==
[2020-01-04 10:38] VITALS: BMI 45.7
== END ==
PROVIDERS: Referring Provider Nurse Practitioner Family; Visit Provider Nurse Practitioner Family
DX: I31.3 Pericardial effusion (noninflammatory) (principal); M32.9 Systemic lupus erythematosus, unspecified; D70.4 Cyclic neutropenia; M35.9 Systemic involvement of connective tissue, unspecified; I26.99 Other pulmonary embolism without acute cor pulmonale; I10 Essential (primary) hypertension; D64.9 Anemia, unspecified; R07.9 Chest pain, unspecified
CPT/HCPCS: 93308; Q9957; A4216; C8924

== ENCOUNTER → 2020-07-29 11:53 | Outpatient (CLI) | payer MEDICAID, SELFPAY ==
[2020-01-04 10:38] VITALS: BMI 45.7
--- NOTE | 2020-07-29 11:55 | RAD_ITS ---
STUDY: X-RAY - RIGHT KNEE REASON FOR EXAM: Female, 35 years old. LUPUS PATIENT WANTING TO GET OFF STEROIDS AFTER 7 YEARS TECHNIQUE: 3 view(s) of the knee. COMPARISON: None. FINDINGS: Normal visualized distal femur. Normal visualized proximal tibia and fibula. Normal proximal tibiofibular articulation. Normal medial femorotibial compartment. Normal lateral femorotibial compartment. Normal patellofemoral articulation. The soft tissue structures are unremarkable. RAD/Knee 3 Views IMPRESSION: Normal x-ray examination of the knee. Electronically Signed: Kyle Almanzar, at 15:33 EDT , Service support ,
--- NOTE | 2020-07-29 11:55 | RAD_ITS ---
STUDY: X-RAY - LEFT KNEE REASON FOR EXAM: Female, 35 years old. LUPUS PATIENT WANTING TO GET OFF STEROIDS AFTER 7 YEARS TECHNIQUE: 3 view(s) of the knee. COMPARISON: None. FINDINGS: Normal visualized distal femur. Normal visualized proximal tibia and fibula. Normal proximal tibiofibular articulation. Normal medial femorotibial compartment. Normal lateral femorotibial compartment. Normal patellofemoral articulation. The soft tissue structures are unremarkable. RAD/Knee 3 Views IMPRESSION: Normal x-ray examination of the knee. Electronically Signed: Kyle Almanzar, at 15:33 EDT , Service support ,
--- NOTE | 2020-07-29 11:55 | RAD_ITS ---
STUDY: X-RAY - LUMBAR SPINE REASON FOR EXAM: Female, 35 years old. LUPUS PATIENT WANTING TO GET OFF STEROIDS AFTER 7 YEARS TECHNIQUE: 3 view(s) of the lumbar spine were obtained. COMPARISON: None FINDINGS: Normal lumbar lordosis. There is a levoscoliosis of the lumbar spine. There is a normal alignment of the vertebrae. Mild degree of disc space narrowing and anterior spondylosis at the L3-L4 and L4-L5 levels. The soft tissue structures are unremarkable. RAD/Lumbar Spine 2 or 3 Views IMPRESSION: Degenerative changes of the spine, as detailed above. Levoscoliosis. Electronically Signed: Kyle Almanzar, at 15:34 EDT , Service support ,
--- NOTE | 2020-07-29 11:56 | RAD_ITS ---
STUDY: X-RAY - CERVICAL SPINE REASON FOR EXAM: Female, 35 years old. LUPUS PATIENT WANTING TO GET OFF STEROIDS AFTER 7 YEARS TECHNIQUE: 3 view(s) of the cervical spine were obtained. COMPARISON: None FINDINGS: Normal anterior atlantoaxial articulation. Normal odontoid process. There is straightening of the normal cervical lordosis. Minimal anterior spondylosis at the C5-C6 and C6-C7 levels. Normal disc space heights. Normal visualized intervertebral neuroforamina. The soft tissue structures are unremarkable. RAD/Cerv Spine 2 or 3 Views IMPRESSION: Minimal anterior spondylosis at the C5-C6 and C6-C7 levels. Electronically Signed: Kyle Almanzar, at 15:35 EDT , Service support ,
== END ==
PROVIDERS: Referring Provider Anesthesiology Pain Medicine; Visit Provider Anesthesiology Pain Medicine
DX: M54.9 Dorsalgia, unspecified (principal); M25.569 Pain in unspecified knee
CPT/HCPCS: 72040; 72100; 73562

== ENCOUNTER 2020-11-14 09:30 | Outpatient (RCR) | payer MEDICAID, SELFPAY ==
[2020-01-04 10:38] VITALS: BMI 45.7
--- NOTE | 2020-10-29 17:17 | HP.PTEVAL_ITS ---
Patient's Visit Information MARYANNE BOO is a 35 year old F referred to Physical Therapy by Dr. Presley Low MD with a diagnosis of neck pain, knee pain. Date of Evaluation: 10/29/20 Physical Therapist: Alton Rodriguez, DPT, OCS, CSCS - Visit Plan Frequency: 2x /Week Duration: 4-6 Weeks Plan: 2x/week for 4-6 weeks for aquatic therapy to emphasize: Scap adn shoulder stabs. postural strength. LE and core strength. calorie burning. Emphasize at home posture, ergonomics at office desk and progress to [facility] pool program as patient has access to [employer] - Subjective I have Lupus diagnosed at 28 yo, been on steroid ever since for 7 years. Trying to wean off b/c she doesn't like side effects but it is the only thing that helps. Has some OA in neck says her x rays. L knee is not painful now but is intermittently painful for no reason. Weaning down steroid since 3-5 months ago. Neck posteriorly constant 6/10 for the last couple weeks. Painful since early September. Knee pain L anterior is mild at 3/10 with WB only. Pressure. Sleep: Hard to get comfortable due to neck. Fingers and hand joints hurt intermittently. No numbness or tingly. Feels weak. 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 Has adjusted work station and it doesn't help much. Neck gets worse after working for a while. [facility] ADLs are getting done but painful. Sometimes R shoulder hurts to put shirt on. Hobbies include children and social butterfly. Kids are priority adn 8 [address] ride to [place] may have started this in September. Kids are 10,6. Cleans at home. No other exercises. Feels like it is hard to hold head up. - Pain neck Pain Intensity (Out of 10): 6 Pain Intensity Range: 6 L knee Pain Intensity (Out of 10): 0 Pain Intensity Range: 0, 3 - Objective Pt walks and transfers I without evidence of pain. Posture is forward head and kyphotic throacic posture. tender to alpation soft tissue neck parspinals and UT into sub occ B. Also tender over supraspinatus insertion R. + HK and + neer on R , - ext rotation lag test adn - drop arm. Neck ROM 45 ext, 65 L rot, 70 R rotation, SB are full, slight pain end range of ext and retraction whcih is also limited. reflexes 2/3 bi, tri, patella adn achilles. Sensation UE WNL to gross light touch. End range R IR behind back is painful. Strength UE 3+/5 shoulders and pain with R empty can adn abduction. 3+ ext rotation R and other rotations and biceps/triceps 4 B. wrist adn thumb ROM and strength WFL/unremarkable. HS mod tight B. ARM knees and hips WFL. 4-/5 strength throughout LE except hip abd and ext 3+ B. No antalgia in gait, balance is good - Balance Scores Functional Gait Assessment Score: 29 % Disability: 3.3400 - Goals Goal 1:: Neck oswestry score 15 or less Goal Time Frame: 4-6 Weeks Goal 2:: Full aROM neck and UE without increased pain. Goal Time Frame: 4-6 Weeks Goal 3:: Pt feel 75% better overall with pain and acitivity Goal Time Frame: 4-6 Weeks Goal 4:: Sleep 6 hours without discomfort Goal Time Frame: 4-6 Weeks Goal 5:: I approp home pool program as pt has access Goal Time Frame: 4-6 Weeks - Rehabilitation Potential Physical Therapy Diagnosis: postural related neck pain and intermittent knee pain. Rehabilitation Potential: Fair - Anticipated Interventions Patient/Client Instruction: Educate patient on: Plan of Care For the Purpose of:: To decrease pain, To improve muscle performance and motor function Therapeutic Exercise to Include: Strength training, Postural training, Flexibilty training, In an aquatic setting, Passive ROM, Active ROM, Scapular Strength/Stabilization For the Purpose of:: To decrease pain, To improve nutrient delivery to tissue, To improve muscle performance and motor function, To increase tolerance to activity/condition/position, To improve gait and locomotor functions Thank you for the opportunity to evaluate your patient. For Medicare and Medicare HMO plans, please review the plan of care and approve it. It will need to be FAXED BACK to us at [phone] for Medicare purposes. For Medicare only, by signing this I certify the plan of care. Please let me know if there are questions or concerns regarding this plan of care. Physician Signature: Date:
--- NOTE | 2020-12-19 15:23 | HP.PT.NRP ---
MARYANNE BOO was seen in my office for initial evaluation on 10/29/20. The following Plan of Care was established for this patient: Initial Frequency: 2x /Week Initial Duration: 4-6 Weeks Patient/Client Instruction: Educate patient on: Plan of Care For the Purpose of:: To decrease pain, To improve muscle performance and motor function Therapeutic Exercise to Include: Strength training, Postural training, Flexibilty training, In an aquatic setting, Passive ROM, Active ROM, Scapular Strength/Stabilization For the Purpose of:: To decrease pain, To improve nutrient delivery to tissue, To improve muscle performance and motor function, To increase tolerance to activity/condition/position, To improve gait and locomotor functions This patient was last seen in our office 11/14/20. Pertinent comments regarding their Physical therapy will appear below: Pt seen for 3 visits of POC in the pool. She neglected to scedule or attend the rest of her visits. I will discontinue due to nonattendance as it has been nearly 5 weeks. At this point I will be discontinuing this patient from physical therapy. I would be happy to see this patient again in the future if found appropriate by the physician. Thank you! Alton Rodriguez, DPT, OCS, CSCS
== END 2020-11-14 19:00 | disposition home or self-care (01) ==
LOC: PT 09:30
PROVIDERS: Referring Provider Anesthesiology Pain Medicine; Visit Provider Anesthesiology Pain Medicine
DX: M54.2 Cervicalgia (principal); M25.569 Pain in unspecified knee
CPT/HCPCS: 97113; 97162

== ENCOUNTER 2021-03-30 17:05 | Emergency (ER) | payer OTHER, MEDICAID, SELFPAY ==
[2020-01-04 10:38] VITALS: BMI 45.7
[2021-03-30 17:06] VITALS: BP 161/109; PULSE 112; RESP 20; TEMP 36.2; O2SAT 95; BMI 48.7
--- NOTE | 2021-03-30 17:34 | EKG12_ITS ---
Test Reason : CP Blood Pressure : / mmHG Vent. Rate : 097 BPM Atrial Rate : 097 BPM P-R Int : 146 ms QRS Dur : 090 ms QT Int : 332 ms P-R-T Axes : 035 -15 011 degrees QTc Int : 421 ms Normal sinus rhythm Normal ECG When compared with ECG of 10-NOV-2019 08:03, No significant change was found Confirmed by CANDIDA TRONCOSO, CHELSEA ([id number]), digital editor ARSH HERNDON ([id number]) on 04/07/2021 11:18:29 A M Referred By: MR Confirmed By:LUIS TIRADO MD
--- NOTE | 2021-03-30 17:36 | CT_ITS ---
STUDY: CTA CHEST REASON FOR EXAM: Female, 36 years old. Hx of PE, CP/SOB, off anticoag RADIATION DOSAGE (If Supplied By Facility): CTDIvol = ( 12.67 ) mGy, DLP = ( 489.49 ) mGycm TECHNIQUE: The examination was performed with the intravenous administration of IV 100mL Isovue-370. Post-processing of the angiographic images was performed, with multiplanar reformation and 3D reconstruction. Individualized dose optimization techniques were used for this CT. COMPARISON: CTA 11/10/2019 FINDINGS: Normal enhancement of the main pulmonary artery and right and left pulmonary arteries. There is limited enhancement of the bilateral peripheral pulmonary arteries. There is no demonstrated pulmonary embolism. Normal thoracic aorta and visualized great vessels. There is no demonstrated aortic dissection. Normal heart and pericardium. Normal mediastinum. Normal hilar regions. Normal visualized trachea and bronchi. The lungs are well expanded. Normal pulmonary parenchyma. Normal pleura. Normal chest wall structures. Normal osseous structures. Normal visualized upper abdomen. CT/CTA Chest W/WO Contrast IMPRESSION: Limited by contrast timing/pulmonary artery opacification. No central or obvious segmental pulmonary embolism. Electronically Signed: Eugenio Marquez MD ([place]) at 18:55 EDT , Service support ,
[2021-03-30 17:56] LABS: Absolute Lymphocyte Count 0.42 X10^3/uL (0.83-4.51); Absolute Neutrophil Count 3.3 X10^3/uL (2.0-7.7); Basophil# 0.02 X10^3/uL; Basophil% 0.5 % (0-1); Eosinophil# 0.04 X10^3/uL; Eosinophils% 0.9 % (0-5); Hematocrit 38.8 % (37-47); Hemoglobin 12.7 g/dL (12.0-15.0); Lymphocyte # 0.42 X10^3/ul (0.83-4.51); Lymphocyte % 9.9 % (19-41); Mean Corp Hgb Conc 32.7 g/dL (32-36); Mean Corpuscular Hgb 28.5 pg (27.0-32.0); Mean Corpuscular Volume 87.2 fL (81-99); Mean Platelet Vol. 11.1 fl (6.2-12.0); Monocyte# 0.48 X10^3/uL; Monocyte% 11.3 % (0-10); NRBC Flagged by Analyzer 0 % (0-5); Neutrophil # 3.28 X10^3/uL (2.7-7.7); Neutrophil % 76.9 % (47-70); POSITIVE DIFFERENTIAL YES; Platelet Count 162 K/mm3 (150-450); RBC Distribution Width CV 12.8 % (11.6-14.6); RBC Distribution Width SD 40.6 fl (35.1-43.9); Red Blood Count 4.45 M/mm3 (4.2-5.4); White Blood Count 4.3 K/mm3 (4.4-11.0)
[2021-03-30 17:57] LABS: Differential Indicated SCAN CRITERIA MET
[2021-03-30] MEDS: Ketorolac 15 MG/ML Vial IV (17:59)
[2021-03-30] MEDS: DiphenhydrAMINE 50 MG/ML Syringe IV (17:59)
[2021-03-30 18:09] VITALS: BP 130/90; PULSE 94; RESP 16; O2SAT 97
[2021-03-30 18:17] LABS: Anion Gap 7 (5-15); BUN 13 mg/dL (7-18); BUN/Creat Ratio 24.1 RATIO (10-20); Calcium,Total 8.8 mg/dL (8.5-10.1); Chloride 105 mmol/L (98-107); Creatinine, Serum 0.54 mg/dL (0.55-1.02); EST Glomerular Filtration Rate 134 mL/min (>60); Est Glom Filt Rate - Afr Amer 163 mL/min (>60); Estimated Creatinine Clearance 127.11 ml/min; Glucose 88 mg/dL (74-106); Potassium 3.4 mmol/L (3.5-5.1); Sodium Level 139 mmol/L (136-145)
--- NOTE | 2021-03-30 18:20 | EDS_ITS ---
HPI History of Present Illness Chief Complaint: Chest Pain Informant: patient Narrative Narrative: Patient is a 36-year-old female with a past medical history of lupus, PE who presents to the emergency department for chest pain or shortness of breath. Her initial symptoms started yesterday. She states that she has not been compliant with taking her anticoagulation over the past 2 weeks. No known aggravating or relieving factors for her pain. She currently rates as an 8 out of 10. She has not been taking anything for it. She does have a cough but is only in the mornings. Nonproductive. She denies any fevers. She has not been vaccinated for Covid. She denies any leg swelling or calf pain. No abdominal pain or back pain. No nausea/vomiting. No change in moving her bowels or urinating difficulties. She denies a smoking history. [facility] Medical History (Updated 03/30/21 @ 19:[address] Jacques Fermin, ) Alcohol use Anemia Anxiety Arthritis Back pain Cardiology follow-up encounter Chest pain Depression Diabetes Essential (primary) hypertension Fever and neutropenia GERD (gastroesophageal reflux disease) History of edema History of renal disease History of steroid therapy History of stress test History of systemic lupus erythematosus Hx of echocardiogram Left pulmonary embolus Lupus Morbid obesity Neutropenia associated with autoimmune disease Non-smoker Pericardial effusion cardiomyopathy Psoriatic arthritis Pulmonary embolism Rash Renal failure Thrombocytopenia Wears glasses Home Medications duloxetine 60 mg PO BID 01/19/19 [History Last Taken 02/13/19] apixaban 5 mg PO BID #60 tab 11/10/19 [Rx Last Taken Unknown] amlodipine [Norvasc] 10 mg PO DAILY 03/28/21 [History Last Taken Unknown] belimumab [Benlysta] 200 mg SUBCUT TU 03/28/21 [History Last Taken Unknown] buspirone 5 mg PO TID 03/28/21 [History Last Taken Unknown] dulaglutide [Trulicity] 0.75 mg SUBCUT TU 03/28/21 [History Last Taken Unknown] mycophenolate mofetil [CellCept] 1,500 mg PO BID 03/28/21 [History Last Taken Unknown] norethindrone-ethin estradiol 1 tab PO DAILY 03/28/21 [History Last Taken Unknown] Allergy/AdvReac Type Severity Reaction Status Date / Time acetaminophen [From Percocet] Allergy Rash Verified 03/28/21 10:10 amoxicillin Allergy Rash Verified 03/28/21 10:10 cephalexin [From Keflex] Allergy Rash Verified 03/28/21 10:10 clindamycin Allergy Rash Verified 03/28/21 10:10 doxycycline Allergy Hives Verified 03/28/21 10:10 Iodinated Contrast Media Allergy Shortness Verified 03/28/21 10:10 [CONTRASTS] of breath morphine Allergy Swelling Verified 03/28/21 10:10 oxycodone Allergy Hives Verified 03/28/21 10:10 Penicillins Allergy Rash Verified 03/28/21 10:10 codeine AdvReac Nausea Verified 03/28/21 10:10 Surgical History History of appendectomy History of biopsy History of Hx of cholecystectomy S/P pericardiocentesis (03/06/19) Social History Smoking Status: Never smoker ROS ROS ED Constitutional Constitutional ED: Denies chills or fever(s) Eyes Eyes: Denies change in vision ENT ENT ED: Denies epistaxis or rhinorrhea Cardiovascular Cardiovascular: Reports chest pain; Denies palpitations Respiratory/Chest Respiratory/Chest: Reports cough and dyspnea Gastrointestinal Gastrointestinal: Denies abdominal pain, diarrhea, nausea or vomiting Genitourinary Genitourinary ED: Denies dysuria, hematuria or urinary frequency Musculoskeletal Musculoskeletal: Denies back pain or neck pain Integumentary Denies rash Neurologic Neurologic: Denies dizziness, headache(s) or weakness EXAM Physical Exam Const Vital Signs: 03/30/21 17:06 03/30/21 18:09 03/30/21 18:10 Temperature 97.1 F L Temperature Source Temporal Pulse Rate 112 H 94 Respiratory Rate 20 H 16 Respiratory Effort Normal Blood Pressure 161/109 H 130/90 H Blood Pressure Mean 126 103 Pulse Ox 95 97 Oxygen Delivery Method Room Air Room Air 03/30/21 19:34 Temperature Temperature Source Pulse Rate 74 Respiratory Rate 18 Respiratory Effort Blood Pressure 148/88 H Blood Pressure Mean Pulse Ox 92 Oxygen Delivery Method Positive well nourished and well developed General Appearance ED: well developed and NAD HEENT Reports normocephalic, head/scalp atraumatic and moist mucous membranes Eyes PERRL and EOMs intact bilaterally Neck supple Chest Wall inspection of chest normal Resp normal respiratory effort and clear to auscultation bilaterally Resp Narrative: Chest wall tenderness Auscultation: Negative for rales, rhonchi or wheezes Cardio regular rhythm and no murmurs Cardio Narrative: Borderline tachycardic GI normal to inspection, nondistended, normoactive bowel sounds and non-tender Palpation: soft; Negative for guarding or rebound tenderness present Back/Spine no CVA tenderness Extremity normal to inspection General Extremety ED: Negative for edema or tenderness General Extremity: Negative for edema Neuro oriented x3, CN's II-XII intact bilaterally and no sensory deficits noted Sensorium / Orientation: alert Motor Exam: strength 5/5 throughout Psych mental status grossly normal Skin no rashes or lesions noted MDM MDM MDM Narrative Medical decision making narrative: Patient presents the ED for chest pain and shortness of breath. Upon arrival to the emerge department she is borderline tachycardic and satting 95% on room air. No increased work of breathing. She has been noncompliant with taking her Eliquis over the past 2 weeks. Given her significant risk factors she will require CTA. She states she does have a contrast allergy for which she gets short of breath and feels something pushing on her chest. She has been pretreated with steroids and Benadryl before and has done well with that before. She does feel comfortable doing this again. Will check basic lab work. She is given a dose of Toradol for her pain as her chest wall was tender. Patient CT scan was limited due to timing of contrast. But no obvious large/central PE. The rest of her lab work did not reveal a significant acute abnormality. Troponin is negative. I did offer to do delta troponin but patient refusing. Since her symptoms are reproducible I do have low concern for ACS. She has a low heart score. Low concern for aortic catastrophe given normal CT. She is advised to restart her Eliquis. She actually has a planned surgery this coming . She is to discuss this with her PCP. Return precautions are reviewed including any worsening pain or developing worsening shortness of breath. She understands and is agreeable to plan. Discharged home in stable condition. All questions were answered. Lab Data Labs: Laboratory Results - last 24 hr 03/30/21 03/30/21 17:50 17:50 WBC 4.3 L RBC 4.45 Hgb 12.7 Hct 38.8 MCV 87.2 MCH 28.5 MCHC 32.7 RDW Std Deviation 40.6 RDW Coeff of Dennis 12.8 Plt Count 162 MPV 11.1 Immature Gran % (Auto) 0.500 Neut % (Auto) 76.9 H Lymph % (Auto) 9.9 L [place] % (Auto) 11.3 H Eos % (Auto) 0.9 Baso % (Auto) 0.5 Absolute Neuts (auto) 3.3 Absolute Lymphs (auto) 0.42 L Nucleated RBC % 0 Differential Comment SCANNED Diff Path Review February foll Sodium 139 Potassium 3.4 L Chloride 105 Carbon Dioxide 27.0 Anion Gap 7 BUN 13 Creatinine 0.54 L Estim Creat Clear Calc 127.11 Est GFR (MDRD) Af Amer 163 Est GFR (MDRD) Non-Af 134 BUN/Creatinine Ratio 24.1 H Glucose 88 Calcium 8.8 Troponin I < 0.015 Radiography Diagnostic Testing: Radiology Impression Chest CTA 03/30/21 17:36 IMPRESSION: Limited by contrast timing/pulmonary artery opacification. No central or obvious segmental pulmonary embolism. Electronically Signed: Eugenio Marquez MD ([place]) at 18:55 EDT , Service support , EKG Initial EKG: Attestation: I personally reviewed and interpreted this EKG as follows: (Rate of 97 bpm and normal sinus rhythm. Normal intervals. Normal axis. No significant ST elevations or depressions. No T wave abnormalities.) Discharge Plan Triage Chief Complaint: Chest Pain ED Provider: Jacques Fermin Dx/Rx/DC Orders Clinical Impression: Chest wall pain Instructions: ED Chest Pain Wall Costochond Ch Prescriptions: No Action duloxetine 30 MG capsule,delayed release(DR/EC) 60 mg PO BID RF: 0 apixaban 5 MG tablet 5 mg PO BID Qty: 60 RF: 0 buspirone 5 mg Tablet 5 mg PO TID RF: 0 mycophenolate mofetil [CellCept] 500 mg Tablet 1,500 mg PO BID RF: 0 amlodipine [Norvasc] 10 mg Tablet 10 mg PO DAILY RF: 0 Trulicity 0.75 mg/0.5 mL Pen Injector 0.75 mg SUBCUT TU RF: 0 Benlysta 200 mg/mL Auto-Injector 200 mg SUBCUT TU RF: 0 norethindrone-ethin estradiol 0.5-35 mg-mcg (21) Tablet 1 tab PO DAILY RF: 0 Primary Care Provider: Susanne Sanders Referrals: Susanne Sanders, [Primary Care Provider] - 2 Days Disposition Disposition: Home, self care Discharge Date/Time: 03/30/21 19:36
[2021-03-30 18:22] LABS: Differential Comment SCANNED
[2021-03-30 19:34] VITALS: BP 148/88; PULSE 74; RESP 18; O2SAT 92
[2021-03-31 13:58] LABS: Pathologist Review Reviewed
== END 2021-03-30 19:36 | disposition home or self-care (01) ==
PROVIDERS: Emergency Provider Emergency Medicine
DX: R07.89 Other chest pain (principal); E66.01 Morbid (severe) obesity due to excess calories
CPT/HCPCS: 71275; 80048; 84484; 85025; 93005; 96374; 96375; 99284; Q9967; A4216

== ENCOUNTER 2021-04-03 06:00 | Day surgery (SDC) | payer OTHER, MEDICAID, SELFPAY ==
[2020-01-04 10:38] VITALS: BMI 45.7
--- NOTE | 2021-04-01 14:02 | EKG12_ITS ---
Test Reason : PREOP Blood Pressure : / mmHG Vent. Rate : 104 BPM Atrial Rate : 104 BPM P-R Int : 134 ms QRS Dur : 090 ms QT Int : 324 ms P-R-T Axes : 036 -27 033 degrees QTc Int : 426 ms Sinus tachycardia Otherwise normal ECG Confirmed by LAYA TRONCOSO, MODE ([id number]), editorial cartoonist ARSH HERNDON ([id number]) on 04/02/2021 7:56:18 AM Referred By: Savanna Alcantara Confirmed By:MODE ASFI MD
--- NOTE | 2021-04-01 14:08 | PCM.HP.BLA ---
History and Physical Date of Admission: 04/03/21 HPI: The patient is a 36 year old female presenting for pre-operative visit. She is scheduled for laparoscopic bilateral salpintectomy and hysteroscopy with endometrial ablation and Liletta IUD insertion, for menorrhagia and sterilization request on 04/03/2021. Procedure discussed along with risks, benefits and complications. Other alternatives discussed for management. Consent form signed? Yes. ? ? PAST MEDICAL HISTORY PAST MEDICAL HISTORY Diagnosis Date ? Abnormal glandular Papanicolaou smear of cervix ? ? Abn. Pap smear (cervix) ? Cardiomyopathy 01/21/2010 ? post ? Carpal tunnel syndrome ? ? Diabetes (HCC) ? ? Dysthymic disorder ? ? Depression (non-psychotic) ? Gestational diabetes mellitus, antepartum 03/16/2014 ? Hypertension 03/10/2019 ? Lupus (HCC) ? ? Migraine, unspecified, with intractable migraine, so stated, without mention of status migrainosus ? ? Migraine ? Obesity ? ? depression ? ? Psoriatic arthritis (HCC) ? ? Rheumatoid arthritis (HCC) ? ? Systemic lupus erythematosus (HCC) ? ? ? PAST SURGICAL HISTORY PAST SURGICAL HISTORY Procedure Laterality Date ? ANESTH, SECTION ? 03/22/2014 ? APPENDECTOMY ? ? ? DELIVERY ONLY ? 01/14/2010 ? , low transverse ? COLPOSCOPY (VAGINOSCOPY) ? ? ? Colposcopy ? D+C ? 11/2017 ? LAP CHOLECYSTOENTEROSTOMY ? 06/2011 ? ? ? CURRENT MEDICATIONS Current Outpatient Medications Medication Sig Dispense Refill ? busPIRone (BUSPAR) 5 mg tablet Take 5 mg by mouth three times daily. ? ? ? TRULICITY 0.75 mg/0.5 mL pen injector INJECT 0.5 ML SUBCUTANEOUSLY ONCE A WEEK. ROTATE INJECTION SITES ? ? ? Norethindrone, Contraceptive, 0.35 mg tablet TAKE 1 TABLET BY MOUTH EVERY DAY 28 tablet 3 ? cyclophosphamide (CYTOXAN) 1 gram injection Cyclophosphamide Cyclophosphamide Active 0 MG .COMPLEX November 10, 2019 7:48am infusion every other week 11-10-2019 [facility] ([id number]) (Patient not taking: Reported on 02/11/2021) ? ? ? ascorbic acid, vitamin C, (VITAMIN C) 500 mg tablet Take 1 tablet by mouth twice daily. (Patient not taking: Reported on 11/30/2019 ) 60 tablet 0 ? aspirin 81 mg chewable tablet Take 1 tablet by mouth once daily. (Patient not taking: Reported on 11/30/2019 ) 30 tablet 0 ? ferrous sulfate 325 mg (65 mg iron) tablet Take 1 tablet by mouth daily with breakfast. (Patient not taking: Reported on 11/30/2019 ) 30 tablet 0 ? metoprolol tartrate, short acting, (LOPRESSOR) 25 mg tablet Take 0.5 tablets by mouth every 12 hours. (Patient not taking: Reported on 11/30/2019 ) 30 tablet 1 ? DULoxetine (CYMBALTA) 30 mg capsule Take 1 capsule by mouth twice daily. (Patient taking differently: Take 60 mg by mouth twice daily. ) ? ? ? metFORMIN (GLUCOPHAGE) 500 mg tablet Take 1 tablet by mouth twice daily with meals. (Patient not taking: Reported on 11/30/2019 ) 60 tablet 2 ? lidocaine 5 % gel Apply 1 application to affected area three times daily as needed. (Patient not taking: Reported on 11/30/2019 ) 1 Tube 1 ? colchicine 0.6 mg tablet Take 1 tablet by mouth twice daily. (Patient not taking: Reported on 02/11/2021 ) 60 tablet 2 ? predniSONE (DELTASONE) 20 mg tablet Take 1 tablet by mouth once daily. (Patient taking differently: Take 5 mg by mouth once daily. ) 30 tablet 0 ? apixaban (ELIQUIS) 5 mg tab(s) Take 1 tablet by mouth twice daily. 60 tablet 0 ? spironolactone (ALDACTONE) 100 mg tablet Take 1 tablet by mouth once daily. (Patient not taking: Reported on 02/11/2021 ) 30 tablet 0 ? furosemide (LASIX) 20 mg tablet Take 1 tablet by mouth as needed (leg swelling). (Patient not taking: Reported on 02/11/2021 ) 30 tablet 0 ? mycophenolate Mofetil (CELLCEPT) 500 mg tablet Take 1,500 mg by mouth twice daily. ? ? 3 ? amLODIPine (NORVASC) 10 mg tablet Take 10 mg by mouth once daily. (Patient not taking: Reported on 02/11/2021 ) ? 1 ? belimumab (BENLYSTA SUBCUTANEOUS) Inject 200 mg subcutaneously once each week. ? acetaminophen (TYLENOL) 500 mg tablet Take 1 tablet by mouth every 8 hours as needed for Pain. (Patient not taking: Reported on 11/30/2019 ) 50 tablet 0 ? No current facility-administered medications for this visit. ? ? ALLERGIES: Codeine, Doxycycline, Percocet [Oxycodone-Acetaminophen], Clindamycin, Iv Contrast [Iodine], Morphine, and Penicillins ? PERSONAL HISTORY: SOCIAL HISTORY Social History ? Tobacco Use ? Smoking status: Never Smoker ? Smokeless tobacco: Never Used Vaping Use ? Vaping Use: Never used Substance Use Topics ? Alcohol use: Yes ? ? Comment: social alcohol use, not while ? Drug use: No ? FAMILY HISTORY: FAMILY HISTORY FAMILY HISTORY Problem Relation Age of Onset ? Arthritis Mother ? ? rheumatoid ? Thyroid Mother ? ? Heart Mother ? ? Lipids Father ? ? Cancer Maternal Grandmother ? ? LUNG CANCER ? Heart Maternal Grandmother ? ? Thyroid Maternal Grandmother ? ? Heart Paternal Grandmother ? ? Thyroid Maternal Aunt ? ? Thyroid Maternal Aunt ? ? ? REVIEW OF SYMPTOMS: GENERAL: denies fevers or chills ENDOCRINOLOGY: has not been on steroids Cardiology : denies palpitations or chest pain Respiratory: denies SOB or cough Hematology: denies history of prolonged bleeding or easy bruising or VTE Allergy: Denies history of personal or family history of allergy to anesthesia ? PHYSICAL EXAMINATION: ? VITALS: Last menstrual period 02/22/2021. ? GENERAL: The patient is well nourished, well hydrated in no acute distress. , The patient is oriented to time, place, and person. NECK: Supple. No lynphadenopathy, normal thyroid, no thyromegaly. LUNGS: Clear to auscultation bilaterally. no wheezes, rhonchi or rales HEART: Regular rate and rhythm, Normal heart sounds and No murmurs or gallops ? ? IMPRESSION: sterilization request, menorrhagia ? PLAN: The risks/benefits/alternatives and personal involved for the planned laparoscopic bilateral salpingectomy and hysteroscopy with endometrial ablation and Liletta IUD insertion were reviewed with the patient. Her questions were answered to her satisfaction and she desires to proceed. Consent was signed. I reviewed with her postop instructions and expectations. ? ? I have reviewed and updated past medical and surgical history, medications and allergies
[2021-04-01 15:11] LABS: Hematocrit 39.4 % (37-47); Hemoglobin 13.1 g/dL (12.0-15.0); Mean Corp Hgb Conc 33.2 g/dL (32-36); Mean Corpuscular Hgb 28.6 pg (27.0-32.0); Mean Platelet Vol. 11.4 fl (6.2-12.0); Platelet Count 198 K/mm3 (150-450); RBC Distribution Width CV 13.2 % (11.6-14.6); RBC Distribution Width SD 40.3 fl (35.1-43.9); Red Blood Count 4.58 M/mm3 (4.2-5.4); White Blood Count 6.1 K/mm3 (4.4-11.0)
[2021-04-01 15:34] LABS: Hemoglobin A1c 5.8 % (3.8-5.6)
[2021-04-01 15:39] LABS: Anion Gap 7 (5-15); BUN 11 mg/dL (7-18); BUN/Creat Ratio 16.6 RATIO (10-20); Calcium,Total 8.8 mg/dL (8.5-10.1); Chloride 106 mmol/L (98-107); Creatinine, Serum 0.66 mg/dL (0.55-1.02); EST Glomerular Filtration Rate 106 mL/min (>60); Est Glom Filt Rate - Afr Amer 128 mL/min (>60); Glucose 139 mg/dL (74-106); Potassium 3.8 mmol/L (3.5-5.1); Sodium Level 140 mmol/L (136-145)
[2021-04-03] VITALS (9 sets, daily range): BP systolic 139–169; BP diastolic 93–125; PULSE 88–108; RESP 12–18; TEMP 36.1–36.5; O2SAT 93–100; BMI 48.6
[2021-04-03 06:26] LABS: Internal QC Validated? YES +Cl - CLEAR BKGD; Pregnancy, Urine Negative Negative
[2021-04-03 06:36] LABS: Bedside Glucose 129 mg/dL (70-110)
[2021-04-03] MEDS: Acetaminophen 500 MG Tablet 1000 MG PO (06:42)
[2021-04-03] MEDS: Lactated Ringers 1,000 ML 100 ML IV (06:45)
[2021-04-03] MEDS: Levonorgestrel IUD (Liletta) 1 EACH INTRA-UTER (07:45)
[2021-04-03] MEDS: Lubricating Jelly 60 GM Tube 30 GM TOPICAL (08:01)
[2021-04-03] MEDS: Bupivacaine Mpf 0.5% 30 ML VIAL (08:01)
--- NOTE | 2021-04-03 08:52 | OP.PCM_ITS ---
Problems Associated Problem List Diagnoses (1) Menorrhagia: (2) Sterilization: Report of Operation Date of Procedure: 04/03/21 Pre-Operative Diagnosis: sterilization request, menorrhagia Post-Operative Diagnosis: same Surgery/Procedure Performed:: Laparoscopic tubal ligation with Filshie clips, Hysteroscopy with Yaneth endometrial ablation, Liletta IUD insertion Description of Surgical Findings:: Adhesions of the uterus to the anterior abdominal wall, some adhesions of the ovaries and tubes to the abdominal wall and also to the posterior uterus. Adhesions extensively on the left side of the abdomen from the umbilicus lateral and superior Surgeon: Savanna Alcantara package line relief operator: Eric Vargas package line relief operator: robbi cohen Type of Anesthesia: General Anesthesiologist: Lalitha Howard Special Medications: none Specimen's removed: none Drains: none Estimated Blood Loss (mL): 20 Fluids Replaced: 700 Description of Procedure: The patient was taken to the operating room where she was prepped and draped in the dorsolithotomy position. A weighted speculum was placed in the vagina and the anterior lip of the cervix was grasped with a tenaculum. The Azalia uterine manipulator was placed and the remainder of the instruments were removed from the vagina. Attention was turned to the abdomen. All port sites were infiltrated with 0.5% Marcaine before skin incisions were made. A 5 mm intraumbilical incision was made. The anterior abdominal wall was tented up with 2 towel clamps while a 5 m m blade less trocar and sleeve were entry into the peritoneal cavity was performed on the first attempt. Intraperitoneal placement was confirmed with the laparoscope. The pneumoperitoneum was created and the underlying abdominal contents were intact. The patient was placed in Trendelenburg. Right and left lower quadrant ports were placed under direct visualization lateral to the inferior epigastric vessels. The bowel was swept away and the above findings were noted. Decision was made that it be technically difficult and require lab dissection to do a bilateral salpingectomy. Decision was made to proceed with Filshie clips. Both tubes were identified. Filshie clip was placed as close to the cornual insertion of the tube as possible. Clamp was placed over the entire tubal lumen and pressure was held for 5 seconds and the applicator was released. Hemostasis and excellent placement was noted. Was noted that there was some bleeding from the omentum for manipulation during the procedure. Suction database designer was used to clear the blood and some Kings was placed over this. No active bleeding was noted at the end of the procedure. The pneumoperitoneum was released. Attention was then turned to the vaginal portion of the case. The cervix was dilated serially with Hegar dilators. The 5mm hysteroscope was placed into the uterine cavity and the above findings were noted. Bilateral tubal ostia were identified. The uterus sounded to 9 cm and the cervical length was 4.5cm. The endometrial cavity length was 4.5cm. The hysteroscope was removed. The Yaneth device was set to 4.5cm. The instrument was then seated into the endometrial cavity and the indicator was in the green. The cervical seal balloon was inflated and the uterine integrity test was passed. The ablation procedure was initiated and completed without interruption. During the ablation procedure gentle traction was held on the tenaculum and the Yaneth device was held up against the uterine fundus. When the ablation procedure was completed the Yaneth was removed. The Liletta IUD was then readied and inserted in the usual sterile fashion. The strings were trimmed to 2 cm. The tenaculum was removed and the tenaculum site was noted to be hemostatic. All sponge and needle counts were correct. A vaginal sweep was performed by me. The patient was awakened and taken to the recovery room in stable condition. Hysteroscopic ins: 350cc normal saline Hysteroscopic outs:250cc Findings: Endometrial cavity: Normal, no fibroids or polyps noted Cervix: Normal Vagina: Normal The skin incisions were closed with Monocryl suture in a subcuticular fashion and skin glue by the HISTORICAL ARCHEOLOGIST. The HISTORICAL ARCHEOLOGIST provided camera guidance, and tissue manipulation during the procedure.. The vaginal instruments were removed and the vaginal sweep was completed by me. The procedure was performed by me with assistance other than as dictated above. All sponge and needle counts were correct and the patient was taken to the recovery room in stable condition. Grafts/Implants Used: Liletta IUD Procedure Start Time: 08:01 Procedure Stop Time: 08:54 Complications none Admit VTE Documentation VTE Present on Admission: No VTE Mechan Device Prophylaxis: SCD's VTE Pharm Prophylaxis ordered?: No Reason prophylaxis not ordered:: Procedure Not Indicated
--- NOTE | 2021-04-03 08:58 | PCM.DC ---
Discharge Instructions Diet Discharge Diet: No restrictions Activity Return to work on:: 04/07/21 May shower in (days): 1 May resume sexual activity in: 2 weeks Dressing / Incision Call your doctor if your incision/area has: Sudden Increased Bleeding and Foul Smelling Discharge Call your doctor if you observe: Fever of 101 or Higher Cleanse incision/area with: Soap & Water (Your incisions have skin glue and it can get wet. Leave on until it falls off) Follow Up Care Please Follow Up With: Savanna Alcantara MD When: In my office or virtual visit in 1-2 weeks or as needed Test Results: Test results from this visit will be discussed in further detail at your follow-up appointment, if applicable. Discharge Plan Admission Primary Reason for Your Visit: sterilization, endometrial ablation Attending Provider: Savanna Alcantara Primary Care Provider: Susanne Sanders Discharge Orders/Prescriptions Prescriptions: Continued duloxetine 30 MG capsule,delayed release(DR/EC) 60 mg PO BID RF: 0 apixaban 5 MG tablet 5 mg PO BID Qty: 60 RF: 0 buspirone 5 mg Tablet 5 mg PO TID RF: 0 mycophenolate mofetil [CellCept] 500 mg Tablet 1,500 mg PO BID RF: 0 amlodipine [Norvasc] 10 mg Tablet 10 mg PO DAILY RF: 0 Trulicity 0.75 mg/0.5 mL Pen Injector 0.75 mg SUBCUT TU RF: 0 Benlysta 200 mg/mL Auto-Injector 200 mg SUBCUT TU RF: 0 norethindrone-ethin estradiol 0.5-35 mg-mcg (21) Tablet 1 tab PO DAILY RF: 0 Referrals / Follow Up: Susanne Sanders, [Primary Care Provider] - Disposition Disposition (needs filled in before D/C Order can be placed): Home, self care
== END 2021-04-03 10:46 | disposition home or self-care (01) ==
LOC: SDC 06:00 → AC 06:00
PROVIDERS: Anesthesiology; Referring Provider Obstetrics & Gynecology; Visit Provider Obstetrics & Gynecology
PROC: (CPT 58661; principal; 2021-04-03 07:15)
PROC: 0U5B8ZZ Destruction of Endometrium, Via Natural or Artificial Opening Endoscopic (ICD-10-PCS; CPT 58558; 2021-04-03 07:15)
DX: Z30.2 Encounter for sterilization (principal); N92.0 Excessive and frequent menstruation with regular cycle; I42.9 Cardiomyopathy, unspecified; E11.9 Type 2 diabetes mellitus without complications; F32.9 Major depressive disorder, single episode, unspecified; I10 Essential (primary) hypertension; D64.9 Anemia, unspecified; F41.9 Anxiety disorder, unspecified; M32.9 Systemic lupus erythematosus, unspecified; L40.50 Arthropathic psoriasis, unspecified; M06.9 Rheumatoid arthritis, unspecified; Z79.899 Other long term (current) drug therapy; Z79.82 Long term (current) use of aspirin; Z79.84 Long term (current) use of oral hypoglycemic drugs; K21.9 Gastro-esophageal reflux disease without esophagitis; E66.01 Morbid (severe) obesity due to excess calories; Z86.711 Personal history of pulmonary embolism; Z68.42 Body mass index [BMI] 45.0-49.9, adult; Z79.01 Long term (current) use of anticoagulants
CPT/HCPCS: 00851; 58300; 58563; 58671; 36415; 80048; 81025; 82962; 83036; 85027; 87426; 93005; C9803; J7120; J2405

== ENCOUNTER → 2021-05-01 09:53 | Outpatient (CLI) | payer OTHER, MEDICAID, SELFPAY ==
[2021-04-03 06:38] VITALS: BMI 48.6
[2021-04-29 16:12] VITALS: BMI 49.6
--- NOTE | 2021-05-01 09:54 | ECHOD_ITS ---
Reason For Study: Hx of pericardial effusion Procedure This was a 2D Doppler, Color Flow transthoracic echocardiogram. Exam performed in department. Left Ventricle Normal LV size. Left ventricular systolic function is normal. The estimated ejection fraction is 55 %. No regional wall motion abnormalities noted. Right Ventricle Normal RV size. Normal systolic function. Atria Normal left atrium. Normal right atrium. Tricuspid Valve Normal tricuspid valve. Mild tricuspid valve insufficiency. Pulmonic Valve The pulmonic valve is not well visualized. Great Vessels Normal aortic root. Pericardium/Pleural Trivial pericardial effusion. MMode/2D Measurements & Calculations LVIDd: 4.6 cm IVSd: 1.1 cm Ao root diam: 3.3 cm LVIDs: 2.6 cm LVPWd: 1.0 cm RVDd: 3.2 cm FS: 42.9 % LAV(MOD-bp): 42.7 ml SV(MOD-sp4): 56.1 ml LVAd ap4: 30.6 cm2 LAV(MOD-bp) Indexed: 18.3 ml/m2 LVLd ap4: 7.6 cm LAV(MOD-sp2): 38.1 ml EDV(MOD-sp4): 104.2 ml LAV(MOD-sp4): 41.6 ml EDV(sp4-el): 104.7 ml LVAs ap4: 19.6 cm2 LVLs ap4: 7.0 cm ESV(MOD-sp4): 48.1 ml ESV(sp4-el): 46.9 ml EF(MOD-sp4): 53.9 % EF(sp4-el): 55.2 % SV(sp4-el): 57.7 ml LA dimension(2D): 3.1 cm LA A4 area: 16.7 cm2 RA A4 area: 16.0 cm2 Doppler Measurements & Calculations MV E max edmundo: 82.0 cm/sec Lat Peak E' Edmundo: 7.8 cm/sec Med Peak E' Edmundo: 5.4 cm/sec MV A max edmundo: 78.2 cm/sec E/E' lat: 10.5 E/E' med: 15.3 MV E/A: 1.0 Ao V2 max: 135.8 cm/sec LV V1 max: 98.3 cm/sec PA V2 max: 86.1 cm/sec Ao max P.4 mmHg LV V1 max P.9 mmHg TR max edmundo: 225.2 cm/sec TR max P.3 mmHg ECHO/Echo Complete Interpretation Summary Normal LV size. Left ventricular systolic function is normal. The estimated ejection fraction is 55 %. Trivial pericardial effusion. Mild tricuspid valve insufficiency. Ordering Physician: Melvin Valentino/Lon Aranda Referring Physician: Susanne Sanders Performed By: Princess Nelson RDCS
== END ==
PROVIDERS: Referring Provider Nurse Practitioner Family; Visit Provider Nurse Practitioner Family
DX: I31.3 Pericardial effusion (noninflammatory) (principal); R00.0 Tachycardia, unspecified; I26.99 Other pulmonary embolism without acute cor pulmonale; M32.9 Systemic lupus erythematosus, unspecified
CPT/HCPCS: 93306

== ENCOUNTER 2021-06-10 09:50 | Emergency (ER) | payer OTHER, MEDICAID, SELFPAY ==
[2021-06-10 09:51] VITALS: BP 117/92; PULSE 105; RESP 18; TEMP 36.4; O2SAT 98; BMI 47.5
--- NOTE | 2021-06-10 10:11 | EKG12_ITS ---
Test Reason : CHEST PAIN Blood Pressure : / mmHG Vent. Rate : 093 BPM Atrial Rate : 093 BPM P-R Int : 144 ms QRS Dur : 088 ms QT Int : 346 ms P-R-T Axes : 036 012 023 degrees QTc Int : 430 ms Normal sinus rhythm Poor R wave progression Confirmed by ERNESTO TRONCOSO, ELIZABETH ([id number]), primer expeditor and drier ARSH HERNDON ([id number]) on 06/12/2021 9:57:36 AM Referred By: YING Confirmed By:ELIZABETH OROZCO MD
--- NOTE | 2021-06-10 10:11 | RAD_ITS ---
STUDY: X-RAY CHEST REASON FOR EXAM: Female, 36 years old. Chest pain TECHNIQUE: Single AP portable view of the chest. COMPARISON: Comparison is made with prior study dated 11/10/2019. FINDINGS: EKG electrodes are seen. The lungs are clear and expanded. There is no demonstrated pleural abnormality. There is mild cardiac enlargement. Normal mediastinum and benedict. Normal visualized pulmonary arteries. Normal visualized aortic arch and descending thoracic aorta. Normal visualized thoracic spine. Normal visualized ribs, clavicles, and shoulders. There is no demonstrated abnormality of the visualized soft tissue structures of the upper abdomen. RAD/Chest 1 View (Portable) IMPRESSION: Mild cardiomegaly. Electronically Signed: Kyle Almanzar MD at 11:44 EDT , Service support ,
--- NOTE | 2021-06-10 10:12 | EDS_ITS ---
HPI History of Present Illness Chief Complaint: Chest Other Informant: patient Onset/Context/Timing Onset: Days (10 or so) Activity at onset: gradual Timing: Continuous Quality: Positive for Pain (pleuritic) Location: - (Entire chest from [id number]) Current Severity: Moderate Maximum Severity: Severe Worsened By: - (lying supine) Relieved By: - (sitting up) Associated Symptoms: Positive for Dyspnea (only when lying down due to increased pain) and Fever (low-grade, 99.9 last 2d); Negative for Nausea, Vomiting, Cough, Lightheadedness, Acid Reflux and Palpitations Narrative Narrative: Patient presenting with about 10 days of chest discomfort worse with lying down specially last night, hence coming to the emergency department today since symptoms seem like they are getting worse. They are pleuritic and bilateral, when she bends forward here in the exam room the pain worsens but just over to the right side. Feels like pericarditis that she had in the past. She has history of pulmonary emboli for which she is on Eliquis and has been compliant with it, no bleeding recently, no coughing, she has a history of lupus that she is on medications for as well. She has not taken anything for the discomfort, she was advised not to take NSAIDs both because of being on Eliquis and having a history of kidney issues in the past. Prior Similar Symptoms: Yes and - (Pericarditis) [facility] Medical History Alcohol use Anemia Anxiety Arthritis Back pain Cardiology follow-up encounter Chest pain Depression Diabetes Essential (primary) hypertension Fever and neutropenia GERD (gastroesophageal reflux disease) History of edema History of pulmonary embolism History of renal disease History of steroid therapy History of stress test History of systemic lupus erythematosus Hx of echocardiogram Left pulmonary embolus Lupus Morbid obesity Neutropenia associated with autoimmune disease Non-smoker Pericardial effusion cardiomyopathy Psoriatic arthritis Pulmonary embolism Rash Renal failure Thrombocytopenia Wears glasses Home Medications duloxetine 60 mg PO BID 01/19/19 [History Last Taken 02/13/19] apixaban 5 mg PO BID #60 tab 11/10/19 [Rx Last Taken Unknown] Benlysta 200 mg SUBCUT 03/28/21 [History Last Taken Unknown] Trulicity 0.75 mg SUBCUT 03/28/21 [History Last Taken Unknown] amlodipine [Norvasc] 10 mg PO DAILY 03/28/21 [History Last Taken Unknown] buspirone 5 mg PO TID 03/28/21 [History Last Taken Unknown] mycophenolate mofetil [CellCept] 1,500 mg PO BID 03/28/21 [History Last Taken Unknown] hydrocodone-acetaminophen 1 tab PO Q4H PRN PRN 2 Days #10 tablet 06/10/21 [Rx Last Taken Unknown] Allergy/AdvReac Type Severity Reaction Status Date / Time amoxicillin Allergy Rash Verified 04/29/21 16:13 cephalexin [From Keflex] Allergy Rash Verified 04/29/21 16:13 clindamycin Allergy Rash Verified 04/29/21 16:13 doxycycline Allergy Hives Verified 04/29/21 16:13 Iodinated Contrast Media Allergy Shortness Verified 04/29/21 16:13 [CONTRASTS] of breath morphine Allergy Swelling Verified 04/29/21 16:13 oxycodone Allergy Hives Verified 04/29/21 16:13 Penicillins Allergy Rash Verified 04/29/21 16:13 codeine AdvReac Nausea Verified 04/29/21 16:13 Surgical History History of appendectomy History of appendectomy History of biopsy History of History of endometrial ablation (04/02/21) Hx of cholecystectomy S/P pericardiocentesis (03/06/19) Social History Smoking Status: Never smoker alcohol intake: never substance use type: does not use caffeine: Yes Type: coffee Number of servings: 1 ROS ROS ED Constitutional Constitutional ED: Reports as per HPI and fever(s); Denies body ache(s) or chills Eyes Eyes: Denies change in vision or diplopia ENT ENT ED: Denies rhinorrhea or sore throat Cardiovascular Cardiovascular: Reports chest pain; Denies edema, erythema on extremities or palpitations Respiratory/Chest Respiratory/Chest: Reports as per HPI and dyspnea; Denies cough Gastrointestinal Gastrointestinal: Denies abdominal pain, diarrhea, nausea or vomiting Genitourinary Genitourinary ED: Denies dysuria or hematuria Musculoskeletal Musculoskeletal: Denies back pain or neck pain Integumentary Denies abscess or rash Neurologic Neurologic: Denies headache(s), paresthesias or weakness Psychiatric Psychiatric: Denies anxiety or suicidal thoughts EXAM Physical Exam Const Vital Signs: 06/10/21 09:51 06/10/21 10:46 06/10/21 12:45 Temperature 97.6 F L Temperature Source Temporal Pulse Rate 105 H 88 Respiratory Rate 18 14 Respiratory Effort Normal Respiratory Pattern Normal Blood Pressure 117/92 H 136/65 H Blood Pressure Mean 100 88 Pulse Ox 98 98 Oxygen Delivery Method Room Air Positive well nourished, well developed and obese General Appearance ED: well developed and NAD Nutritional Appearance: obese HEENT Reports moist mucous membranes normocephalic and atraumatic Eyes PERRL and EOMs intact bilaterally Neck full ROM and supple Resp normal respiratory effort and clear to auscultation bilaterally Cardio regular rate, regular rhythm, no murmurs, no rub, no clicks, no JVD and peripheral pulses 2+ throughout; Negative for diaphoretic Cardio Narrative: Mild tachycardia just over 100 GI non-tender and non-distended Auscultation: normoactive bowel sounds Palpation: soft Back/Spine no CVA tenderness General Back: other FROM Extremity normal to inspection, full ROM and no calf tenderness General Extremety ED: Negative for edema, pulses abnormal or tenderness General Extremity: Negative for edema or pulses abnormal Neuro oriented x3, CN's II-XII intact bilaterally and no sensory deficits noted Sensorium / Orientation: awake and alert Motor Exam: strength 5/5 throughout Skin no rashes or lesions noted and no wounds Heart Score History: Slightly/Non-Suspicious ECG: Normal Age: </= 45 years Risk Factors: 1 or 2 Risk Factors Troponin: </= Normal Limit Score: 1 MDM MDM MDM Narrative Medical decision making narrative: Patient is anticoagulated and therefore NSAIDs were avoided, she was given a tramadol which did not help her discomfort. Her EKG does not show changes of pericarditis at this time, and the rest of her labs are normal but her chest x-ray shows cardiomegaly my interpretation, radiologist is in agreement. Clinically the patient is not in tamponade. I discussed with Dr. Aranda, who given her history approves a stat echo to be obtained since patient is here during the day when the echo was here in the hospital. This was obtained. It showed a trivial pericardial effusion, which is what the patient suggest she had when she was screened while feeling well. Given this, close outpatient follow-up was advised in symptomatic care. She cannot get NSAIDs, tramadol did not help so we gave her Vera here which helped some and I will give her a short prescription for some. Pericarditis past the timeframe of EKG changes and is in the differential, as is pleurisy. Lab Data Attestation: I reviewed the patient's lab results. Labs: Laboratory Results - last 24 hr 06/10/21 06/10/21 10:30 10:30 WBC 4.4 RBC 4.32 Hgb 12.7 Hct 37.9 MCV 87.7 MCH 29.4 MCHC 33.5 RDW Std Deviation 41.8 RDW Coeff of Dennis 13.1 Plt Count 174 MPV 11.3 Immature Gran % (Auto) 0.700 Neut % (Auto) 77.0 H Lymph % (Auto) 10.2 L [place] % (Auto) 10.2 H Eos % (Auto) 1.4 Baso % (Auto) 0.5 Absolute Neuts (auto) 3.4 Absolute Lymphs (auto) 0.45 L Nucleated RBC % 0 Sodium 139 Potassium 4.0 Chloride 108 H Carbon Dioxide 27.0 Anion Gap 4 L BUN 13 Creatinine 0.49 L Estim Creat Clear Calc 140.08 Est GFR (MDRD) Af Amer 182 Est GFR (MDRD) Non-Af 150 BUN/Creatinine Ratio 26.6 H Glucose 102 Calcium 9.0 Troponin I High Sens 6 Radiography Chest X-Ray - ED: 1 View, Read by ED Physician, Cardiomegaly and No Infiltrates Diagnostic Testing: Radiology Impression Chest X-Ray 06/10/21 10:11 IMPRESSION: Mild cardiomegaly. Electronically Signed: Kyle Almanzar MD at 11:44 EDT , Service support , EKG Initial EKG: Attestation: I personally reviewed and interpreted this EKG as follows: Interpretation: Sinus Rhythm and No Acute Injury Pattern Comments: Normal EKG Discharge Plan Triage Chief Complaint: Chest Other ED Provider: Terry Read Dx/Rx/DC Orders Clinical Impression: Chest pain, pleuritic Instructions: ED Chest Pain, Uncertain Cause Prescriptions: New hydrocodone-acetaminophen [hydrocodone-acetaminophen] 1 TABLET tablet 1 tab PO Q4H PRN PRN (Reason: Pain) 2 Days Qty: 10 RF: 0 No Action duloxetine 30 MG capsule,delayed release(DR/EC) 60 mg PO BID RF: 0 apixaban 5 MG tablet 5 mg PO BID Qty: 60 RF: 0 buspirone 5 mg Tablet 5 mg PO TID RF: 0 mycophenolate mofetil [CellCept] 500 mg Tablet 1,500 mg PO BID RF: 0 amlodipine [Norvasc] 10 mg Tablet 10 mg PO DAILY RF: 0 Trulicity 0.75 mg/0.5 mL Pen Injector 0.75 mg SUBCUT TU RF: 0 Benlysta 200 mg/mL Auto-Injector 200 mg SUBCUT TU RF: 0 Primary Care Provider: Susanne Sanders Referrals: Lon Aranda MD [STAFF PHYSICIAN] - (Call for appointment to be seen within the next week or so) Susanne Sanders DO [Primary Care Provider] - Disposition Disposition: Home, Self Care
[2021-06-10] MEDS: traMADol 50 MG Tablet PO (10:30)
[2021-06-10 10:55] LABS: Absolute Lymphocyte Count 0.45 X10^3/uL (0.83-4.51); Absolute Neutrophil Count 3.4 X10^3/uL (2.0-7.7); Basophil# 0.02 X10^3/uL; Basophil% 0.5 % (0-1); Eosinophil# 0.06 X10^3/uL; Eosinophils% 1.4 % (0-5); Hematocrit 37.9 % (37-47); Hemoglobin 12.7 g/dL (12.0-15.0); Lymphocyte # 0.45 X10^3/ul (0.83-4.51); Lymphocyte % 10.2 % (19-41); Mean Corp Hgb Conc 33.5 g/dL (32-36); Mean Corpuscular Hgb 29.4 pg (27.0-32.0); Mean Corpuscular Volume 87.7 fL (81-99); Mean Platelet Vol. 11.3 fl (6.2-12.0); Monocyte# 0.45 X10^3/uL; Monocyte% 10.2 % (0-10); NRBC Flagged by Analyzer 0 % (0-5); Neutrophil # 3.41 X10^3/uL (2.7-7.7); POSITIVE DIFFERENTIAL YES; Platelet Count 174 K/mm3 (150-450); RBC Distribution Width CV 13.1 % (11.6-14.6); RBC Distribution Width SD 41.8 fl (35.1-43.9); Red Blood Count 4.32 M/mm3 (4.2-5.4); White Blood Count 4.4 K/mm3 (4.4-11.0)
[2021-06-10 10:57] LABS: Differential Indicated SCAN CRITERIA MET
[2021-06-10 11:13] LABS: Anion Gap 4 (5-15); BUN 13 mg/dL (7-18); BUN/Creat Ratio 26.6 RATIO (10-20); Chloride 108 mmol/L (98-107); Creatinine, Serum 0.49 mg/dL (0.55-1.02); EST Glomerular Filtration Rate 150 mL/min (>60); Est Glom Filt Rate - Afr Amer 182 mL/min (>60); Estimated Creatinine Clearance 140.08 ml/min; Glucose 102 mg/dL (74-106); Sodium Level 139 mmol/L (136-145); Troponin-I HS 6 pg/mL (3.0-54.0)
[2021-06-10 12:45] VITALS: BP 136/65; PULSE 88; RESP 14; O2SAT 98
--- NOTE | 2021-06-10 12:46 | ECHOL_ITS ---
Reason For Study: chest pain, pericardial effusion Procedure This was a limited 2D transthoracic echocardiogram. Exam performed portable in ED. Left Ventricle Normal LV size. The estimated ejection fraction is 50 %. No regional wall motion abnormalities noted. Pericardium/Pleural Small pericardial effusion. There are no echocardiographic indications of cardiac tamponade. MMode/2D Measurements & Calculations LVIDd: 4.7 cm IVSd: 1.4 cm LA dimension(2D): 3.7 cm LVIDs: 3.2 cm LVPWd: 1.3 cm FS: 31.6 % ECHO/Echo, Limited Study Interpretation Summary Normal LV size. The estimated ejection fraction is 50 %. Small pericardial effusion. There are no echocardiographic indications of cardiac tamponade. Ordering Physician: Terry Read Performed By: Ria Morgan, SARA, RVT
[2021-06-10] MEDS: HYDROcodone Bitartrate/Apap 5/325 Tablet PO (13:24)
[2021-06-10 14:58] VITALS: BP 132/78; PULSE 88; RESP 16; O2SAT 99
== END 2021-06-10 14:59 | disposition home or self-care (01) ==
PROVIDERS: Emergency Provider Emergency Medicine
DX: R07.81 Pleurodynia (principal); F41.9 Anxiety disorder, unspecified; I10 Essential (primary) hypertension; M32.9 Systemic lupus erythematosus, unspecified; M19.90 Unspecified osteoarthritis, unspecified site; F32.9 Major depressive disorder, single episode, unspecified; L40.50 Arthropathic psoriasis, unspecified; Z79.899 Other long term (current) drug therapy; Z86.711 Personal history of pulmonary embolism; Z79.01 Long term (current) use of anticoagulants
CPT/HCPCS: 71045; 80048; 84484; 85025; 93005; 93308; 99285; A4216

== ENCOUNTER → 2021-09-24 10:56 | Outpatient (CLI) | payer OTHER, MEDICAID, SELFPAY ==
[2021-09-24] MEDS: Ondansetron 8 MG Tablet 24 MG PO (11:39)
[2021-09-24] MEDS: 0.9% NaCl Peripheral Flush Adult/Peds IV (11:39)
[2021-09-24 11:43] VITALS: BP 179/116; PULSE 99; RESP 16; TEMP 35.6; O2SAT 98; BMI 44.9
== END ==
DX: M32.14 Glomerular disease in systemic lupus erythematosus (principal)
CPT/HCPCS: 96365; 96367; J7040; J7050; J9209; A4216; J3490; J9070

== ENCOUNTER → 2021-10-08 10:58 | Outpatient (CLI) | payer OTHER, MEDICAID, SELFPAY ==
[2021-10-08 11:15] VITALS: BP 150/95; PULSE 100; RESP 16; TEMP 35.9; O2SAT 95; BMI 44.6
[2021-10-08] MEDS: Ondansetron 8 MG Tablet 24 MG PO (11:22)
[2021-10-08] MEDS: 0.9% NaCl IVPB Med Flush (250 mL) 15 ML IV (11:28)
[2021-10-08] MEDS: 0.9% NaCl Peripheral Flush Adult/Peds IV (11:30)
[2021-10-08 13:30] VITALS: BP 134/82; PULSE 82; RESP 16; O2SAT 98
== END ==
DX: M32.14 Glomerular disease in systemic lupus erythematosus (principal)
CPT/HCPCS: 96367; 96413; J7040; J7050; J9209; A4216; J3490; J9070

== ENCOUNTER → 2021-10-22 10:56 | Outpatient (CLI) | payer OTHER, MEDICAID, SELFPAY ==
[2021-10-22] MEDS: Ondansetron 8 MG Tablet 24 MG PO (11:10)
[2021-10-22 11:15] VITALS: BP 176/100; PULSE 97; RESP 16; TEMP 36.1; O2SAT 98; BMI 44.9
[2021-10-22] MEDS: 0.9% NaCl Peripheral Flush Adult/Peds IV (11:17)
[2021-10-22] MEDS: 0.9% NaCl IVPB Med Flush (250 mL) 15 ML IV (11:27)
== END ==
DX: M32.14 Glomerular disease in systemic lupus erythematosus (principal)
CPT/HCPCS: 96361; 96367; 96375; 96376; 96413; J7040; J7050; J9209; A4216; J3490; J9070

== ENCOUNTER 2021-11-03 10:57 | Emergency (ER) | payer OTHER, MEDICAID, SELFPAY ==
[2021-11-03 10:58] VITALS: BP 188/128; PULSE 97; RESP 20; TEMP 36; O2SAT 100; BMI 44.9
--- NOTE | 2021-11-03 11:04 | EKG12_ITS ---
Test Reason : CP Blood Pressure : / mmHG Vent. Rate : 091 BPM Atrial Rate : 091 BPM P-R Int : 138 ms QRS Dur : 090 ms QT Int : 372 ms P-R-T Axes : 031 -08 047 degrees QTc Int : 457 ms Normal sinus rhythm Poor R wave progression Confirmed by ERNESTO TRONCOSO, ELIZABETH ([id number]), features editor ARSH HERNDON ([id number]) on 11/05/2021 9:38:35 AM Referred By: ALLI Confirmed By:ELIZABETH OROZCO MD
--- NOTE | 2021-11-03 11:15 | RAD_ITS ---
STUDY: X-RAY CHEST REASON FOR EXAM: Female, 36 years old. Chest pain TECHNIQUE: Single AP portable view of the chest. COMPARISON: Comparison is made with prior study dated 06/10/2021. FINDINGS: The lungs are clear and expanded. There is no demonstrated pleural abnormality. There is mild cardiac enlargement. Normal mediastinum and benedict. Normal visualized pulmonary arteries. Normal visualized aortic arch and descending thoracic aorta. Normal visualized thoracic spine. Normal visualized ribs, clavicles, and shoulders. There is no demonstrated abnormality of the visualized soft tissue structures of the upper abdomen. RAD/Chest 1 View (Portable) IMPRESSION: Mild cardiomegaly. Stable examination. Electronically Signed: Kyle Almanzar MD at 11:31 EST , Service support ,
--- NOTE | 2021-11-03 11:23 | EDS_ITS ---
HPI History of Present Illness Chief Complaint: Shortness of Breath Narrative Narrative: 36 year old female presenting with chest pain and shortness of breath X 4 days. Patient states that the pain has been progressively been getting worse. Patient states that when she gets up and walks around the house she feels dyspneic and then when she sits down she has chest pain which initially started on the right side of her chest and now radiates across to the left. Patient states she had low-grade fevers for the past 4 days. She also states that yesterday she developed a cough. She was not vaccinated for COVID-19 because she has lupus and her roll examiner told her that she should not. Patient has not had COVID-19 previously. She does have a history of pericardial effusion in 2019 which needed pericardiocentesis. She presented to [facility] for this and was transferred to [place] for this procedure. Patient states she has not had a return of this. Patient also states that she is on Cytoxan every other week and she has taken her third dose. She is unsure if this would be causing her symptoms. In addition to this the patient states he has a history of pleurisy and this does feel somewhat similar to that as well. She has history of PE but is anticoagulated on Eliquis. [facility] Medical History Alcohol use Allergies Anemia Anxiety Arthritis Back pain Cardiology follow-up encounter Chest pain Chronic neck pain Chronic thoracic back pain Depression Diabetes Essential (primary) hypertension Fever and neutropenia GERD (gastroesophageal reflux disease) History of edema History of pulmonary embolism History of renal disease History of steroid therapy History of stress test History of systemic lupus erythematosus Hx of echocardiogram Intertrigo Left pulmonary embolus Lupus Macromastia Morbid obesity Neutropenia associated with autoimmune disease Non-smoker Pericardial effusion cardiomyopathy Psoriatic arthritis Pulmonary embolism Rash Recent weight loss Renal failure Shoulder pain Thrombocytopenia Wears glasses Home Medications duloxetine 60 mg PO BID 01/19/19 [History Last Taken 02/13/19] apixaban 5 mg PO BID #60 tab 11/10/19 [Rx Last Taken Unknown] Benlysta 200 mg SUBCUT TU 03/28/21 [History Last Taken Unknown] Trulicity 0.75 mg SUBCUT TU 03/28/21 [History Last Taken Unknown] buspirone 5 mg PO TID 03/28/21 [History Last Taken Unknown] amlodipine 10 mg tablet 5 mg PO DAILY tab 06/17/21 [History Last Taken Unknown] prednisone 40 mg PO DAILY 09/24/21 [History Last Taken Unknown] Allergy/AdvReac Type Severity Reaction Status Date / Time amoxicillin Allergy Rash Verified 11/03/21 11:00 cephalexin [From Keflex] Allergy Rash Verified 11/03/21 11:00 clindamycin Allergy Rash Verified 11/03/21 11:00 doxycycline Allergy Hives Verified 11/03/21 11:00 Iodinated Contrast Media Allergy Shortness Verified 11/03/21 11:00 [CONTRASTS] of breath morphine Allergy Swelling Verified 11/03/21 11:00 oxycodone Allergy Hives Verified 11/03/21 11:00 Penicillins Allergy Rash Verified 11/03/21 11:00 codeine AdvReac Nausea Verified 11/03/21 11:00 Family History Other Arthritis Thyroid disorder Surgical History History of appendectomy History of appendectomy History of biopsy History of History of endometrial ablation (04/02/21) History of tubal ligation Hx of cholecystectomy S/P pericardiocentesis (03/06/19) Social History Smoking Status: Never smoker alcohol intake: never substance use type: does not use caffeine: Yes Type: coffee Number of servings: 1 additional social history: Does Take Aspirin Does Not Take Ibuprofen ROS ROS ED Constitutional Constitutional ED: Reports chills and fever(s) Eyes Eyes: Denies blurry vision or change in vision ENT ENT ED: Denies rhinorrhea or sore throat Cardiovascular Cardiovascular: Reports as per HPI Respiratory/Chest Respiratory/Chest: Reports cough, dyspnea and dyspnea on exertion Gastrointestinal Gastrointestinal: Denies abdominal pain or nausea Genitourinary Genitourinary ED: Denies dysuria or hematuria Musculoskeletal Musculoskeletal: Denies arthralgias or myalgias Integumentary Denies rash Neurologic Neurologic: Denies headache(s) or paresthesias EXAM Physical Exam Const Vital Signs: 11/03/21 10:58 11/03/21 11:52 11/03/21 13:04 Temperature 96.8 F L Temperature Source Temporal Pulse Rate 97 75 Respiratory Rate 20 H 18 Respiratory Effort Normal Non-Labored Blood Pressure 188/128 H Blood Pressure Mean 148 Pulse Ox 100 97 Oxygen Delivery Method Room Air Room Air 11/03/21 14:29 Temperature Temperature Source Pulse Rate 81 Respiratory Rate 18 Respiratory Effort Blood Pressure 152/109 H Blood Pressure Mean Pulse Ox 98 Oxygen Delivery Method Positive well developed General Appearance ED: well developed and NAD; Negative for pallor HEENT Reports moist mucous membranes normocephalic and atraumatic Eyes PERRL and EOMs intact bilaterally Neck no lymphadenopathy and supple Chest Wall inspection of chest normal and palpation of chest normal Resp normal respiratory effort Effort and Inspection: respiratory distress Cardio regular rate and regular rhythm Neuro oriented x3 Sensorium / Orientation: awake Psych mental status grossly normal Skin no rashes or lesions noted and no wounds General Skin Exam: Negative for jaundice or pallor Heart Score History: Slightly/Non-Suspicious ECG: Normal Age: </= 45 years Risk Factors: 1 or 2 Risk Factors Score: 1 MDM MDM MDM Narrative Medical decision making narrative: Patient presenting with chest pain and shortness of breath. She is also complaining of low-grade fevers. Patient was tested for COVID-19 and this is negative on the rapid test. EKG on my interpretation is sinus rhythm with a ventricular rate of 91 bpm without sign of ischemic change. Chest x-ray on my interpretation shows cardiomegaly without any acute pulmonary process. The radiologist does agree. Patient anticoagula andres on Eliquis and I do not have suspicion for PE as a cause of her pain. CBC and BMP are unremarkable. High-sensitivity troponin is eight and the delta troponin is seven. Patient states that her pain is improved with the tramadol. I did not give her Toradol due to her history of renal failure although her kidneys appear to be functioning well today. Rapid COVID-19 test is negative. Given her negative work-up I feel the patient stable to be discharged home. She will follow-up with her washcoat wiper to determine with the Cytoxan could be causing some of the side effects. She also has follow-up with her PCP next week. Patient given return precautions. Impression: 1. Dyspnea 2. Chest pain noncardiac Lab Data Attestation: I reviewed the patient's lab results. Labs: Laboratory Results - last 24 hr 11/03/21 11/03/21 11/03/21 11:33 11:33 11:33 WBC 6.3 RBC 4.50 Hgb 13.4 Hct 39.4 MCV 87.6 MCH 29.8 MCHC 34.0 RDW Std Deviation 41.4 RDW Coeff of Dennis 12.8 Plt Count 194 MPV 10.6 Immature Gran % (Auto) 0.500 Neut % (Auto) 81.3 H Lymph % (Auto) 11.1 L [place] % (Auto) 6.7 Eos % (Auto) 0.2 Baso % (Auto) 0.2 Absolute Neuts (auto) 5.1 Absolute Lymphs (auto) 0.70 L Nucleated RBC % 0 Sodium 140 Potassium 3.8 Chloride 107 Carbon Dioxide 26.0 Anion Gap 7 BUN 13 Creatinine 0.62 Estim Creat Clear Calc 110.71 Est GFR (MDRD) Af Amer 138 Est GFR (MDRD) Non-Af 114 BUN/Creatinine Ratio 21.0 H Glucose 131 H Calcium 8.2 L Troponin I High Sens 8 7 11/03/21 13:32 WBC RBC Hgb Hct MCV MCH MCHC RDW Std Deviation RDW Coeff of Dennis Plt Count MPV Immature Gran % (Auto) Neut % (Auto) Lymph % (Auto) [place] % (Auto) Eos % (Auto) Baso % (Auto) Absolute Neuts (auto) Absolute Lymphs (auto) Nucleated RBC % Sodium Potassium Chloride Carbon Dioxide Anion Gap BUN Creatinine Estim Creat Clear Calc Est GFR (MDRD) Af Amer Est GFR (MDRD) Non-Af BUN/Creatinine Ratio Glucose Calcium Troponin I High Sens 6 Radiography Diagnostic Testing: Clinical Impression(s) from Imaging Studies Chest X-Ray 11/03/21 11:15 IMPRESSION: Mild cardiomegaly. Stable examination. Electronically Signed: Kyle Almanzar MD at 11:31 EST , Service support , Discharge Plan Triage Chief Complaint: Shortness of Breath ED Provider: Janak Ayala Dx/Rx/DC Orders Instructions: ED Chest Pain, Noncardiac Prescriptions: No Action duloxetine 30 MG capsule,delayed release(DR/EC) 60 mg PO BID RF: 0 apixaban 5 MG tablet 5 mg PO BID Qty: 60 RF: 0 buspirone 5 mg Tablet 5 mg PO TID RF: 0 Trulicity 0.75 mg/0.5 mL Pen Injector 0.75 mg SUBCUT TU RF: 0 Benlysta 200 mg/mL Auto-Injector 200 mg SUBCUT TU RF: 0 amlodipine [Norvasc] 10 mg tablet 5 mg PO DAILY RF: 0 prednisone 20 mg tablet 40 mg PO DAILY RF: 0 Primary Care Provider: Susanne Sanders Referrals: Susanne Sanders DO [Primary Care Provider] - Disposition Disposition: Home, Self Care Discharge Date/Time: 11/03/21 14:35
[2021-11-03] MEDS: traMADol 50 MG Tablet PO (11:48)
[2021-11-03 11:54] LABS: Absolute Neutrophil Count 5.1 X10^3/uL (2.0-7.7); Basophil# 0.01 X10^3/uL; Basophil% 0.2 % (0-1); Eosinophil# 0.01 X10^3/uL; Eosinophils% 0.2 % (0-5); Hematocrit 39.4 % (37-47); Hemoglobin 13.4 g/dL (12.0-15.0); Lymphocyte % 11.1 % (19-41); Mean Corpuscular Hgb 29.8 pg (27.0-32.0); Mean Corpuscular Volume 87.6 fL (81-99); Mean Platelet Vol. 10.6 fl (6.2-12.0); Monocyte# 0.42 X10^3/uL; Monocyte% 6.7 % (0-10); NRBC Flagged by Analyzer 0 % (0-5); Neutrophil # 5.13 X10^3/uL (2.7-7.7); Neutrophil % 81.3 % (47-70); Platelet Count 194 K/mm3 (150-450); RBC Distribution Width CV 12.8 % (11.6-14.6); RBC Distribution Width SD 41.4 fl (35.1-43.9); White Blood Count 6.3 K/mm3 (4.4-11.0)
[2021-11-03 12:12] LABS: Anion Gap 7 (5-15); BUN 13 mg/dL (7-18); Calcium,Total 8.2 mg/dL (8.5-10.1); Chloride 107 mmol/L (98-107); Creatinine, Serum 0.62 mg/dL (0.55-1.02); EST Glomerular Filtration Rate 114 mL/min (>60); Est Glom Filt Rate - Afr Amer 138 mL/min (>60); Estimated Creatinine Clearance 110.71 ml/min; Glucose 131 mg/dL (74-106); Potassium 3.8 mmol/L (3.5-5.1); Sodium Level 140 mmol/L (136-145); Troponin-I HS 7 pg/mL (3.0-54.0); Troponin-I HS 8 pg/mL (3.0-54.0)
[2021-11-03 13:04] VITALS: PULSE 75; RESP 18; O2SAT 97
[2021-11-03 14:03] LABS: Troponin-I HS 6 pg/mL (3.0-54.0)
[2021-11-03 14:29] VITALS: BP 152/109; PULSE 81; RESP 18; O2SAT 98
== END 2021-11-03 14:35 | disposition home or self-care (01) ==
PROVIDERS: Emergency Provider Student in an Organized Health Care Education/Training Program; Visit Provider Student in an Organized Health Care Education/Training Program
DX: R06.02 Shortness of breath (principal); M32.9 Systemic lupus erythematosus, unspecified; E66.01 Morbid (severe) obesity due to excess calories; Z68.41 Body mass index [BMI] 40.0-44.9, adult; E11.9 Type 2 diabetes mellitus without complications; R07.89 Other chest pain; I10 Essential (primary) hypertension; M19.90 Unspecified osteoarthritis, unspecified site; F32.A Depression, unspecified; F41.9 Anxiety disorder, unspecified; Z79.82 Long term (current) use of aspirin; Z79.01 Long term (current) use of anticoagulants; Z79.899 Other long term (current) drug therapy
CPT/HCPCS: 71045; 80048; 84484; 85025; 87426; 93005; 99285; A4216

== ENCOUNTER → 2021-11-05 11:01 | Outpatient (CLI) | payer OTHER, MEDICAID, SELFPAY ==
[2021-11-05] MEDS: 0.9% NaCl Peripheral Flush Adult/Peds IV (11:23)
[2021-11-05] MEDS: 0.9% NaCl IVPB Med Flush (250 mL) 15 ML IV (11:29)
[2021-11-05] MEDS: Ondansetron 8 MG Tablet 24 MG PO (11:34)
[2021-11-05 11:36] VITALS: BP 136/100; PULSE 99; RESP 16; TEMP 35.7; O2SAT 97; BMI 44.9
[2021-11-05 14:42] VITALS: BP 160/105; PULSE 105; RESP 18; O2SAT 97
== END ==
DX: M32.14 Glomerular disease in systemic lupus erythematosus (principal)
CPT/HCPCS: 96367; 96375; 96413; J7040; J7050; J9209; A4216; J3490; J9070

== ENCOUNTER 2021-11-07 13:48 | Outpatient (CLI) | payer OTHER, MEDICAID, SELFPAY ==
--- NOTE | 2021-11-07 13:50 | ECHOLC_ITS ---
Reason For Study: Chest Pain, Hx of Pericardial Effusion Procedure This was a limited 2D transthoracic echocardiogram. Contrast injection was performed. Exam performed in department. Left Ventricle Normal LV size. Left ventricular systolic function is normal. The estimated ejection fraction is 55 %. No regional wall motion abnormalities noted. Right Ventricle Normal RV size. Normal systolic function. Atria Normal left atrium. Normal right atrium. Great Vessels Normal aortic root. The pulmonary artery is normal size. Normal inferior vena cava. Pericardium/Pleural Small pericardial effusion. There are no echocardiographic indications of cardiac tamponade. Medication Diluted definity 2ml given slow IV push to enhance endocardial definition. MMode/2D Measurements & Calculations LVIDd: 5.2 cm IVSd: 1.3 cm Ao root diam: 4.0 cm LVIDs: 3.7 cm LVPWd: 1.4 cm RVDd: 3.1 cm FS: 29.7 % Doppler Measurements & Calculations MV E max edmundo: 80.4 cm/sec Lat Peak E' Edmundo: 8.1 cm/sec Med Peak E' Edmundo: 7.0 cm/sec MV A max edmundo: 86.4 cm/sec E/E' lat: 10.0 E/E' med: 11.4 MV E/A: 0.93 Ao V2 max: 157.0 cm/sec TR max edmundo: 250.6 cm/sec Ao max P.9 mmHg TR max P.1 mmHg Ao V2 mean: 105.7 cm/sec Ao mean P.0 mmHg Ao V2 VTI: 25.7 cm ECHO/Echo Limited w/Contrast Interpretation Summary Normal LV size. Left ventricular systolic function is normal. The estimated ejection fraction is 55 %. Small pericardial effusion. There are no echocardiographic indications of cardiac tamponade. Compared to the previous the extent of the effusion is mildly worse. Ordering Physician: Chantal Arreola Referring Physician: Susanne Sanders Performed By: Anna Valentino, SARA, RVT
== END 2021-11-07 23:59 | disposition short-term general hospital (02) ==
LOC: CVS 13:49
PROVIDERS: Referring Provider Internal Medicine Cardiovascular Disease; Visit Provider Internal Medicine Cardiovascular Disease
DX: I31.3 Pericardial effusion (noninflammatory) (principal); R07.81 Pleurodynia
CPT/HCPCS: 93308; Q9957; A4216; C8924

== ENCOUNTER 2021-11-19 10:54 | Outpatient (CLI) | payer OTHER, MEDICAID, SELFPAY ==
[2021-11-19 11:14] VITALS: BP 124/96; PULSE 101; RESP 16; TEMP 36.2; O2SAT 98; BMI 44.9
[2021-11-19] MEDS: Ondansetron 8 MG Tablet 24 MG PO (11:32)
== END 2021-11-19 23:59 | disposition short-term general hospital (02) ==
LOC: MEDOUTP 10:54
PROVIDERS: Referring Provider Internal Medicine Nephrology; Visit Provider Internal Medicine Nephrology
DX: M32.14 Glomerular disease in systemic lupus erythematosus (principal)
CPT/HCPCS: 96365; 96367; J7040; J7050; J9209; A4216; J3490; J9070

== ENCOUNTER 2021-12-03 11:00 | Outpatient (CLI) | payer OTHER, MEDICAID, SELFPAY ==
[2021-12-03 11:45] VITALS: BP 133/90; PULSE 108; RESP 16; TEMP 36.3; O2SAT 97
[2021-12-03] MEDS: 0.9% NaCl IVPB Med Flush (250 mL) 15 ML IV (12:05)
[2021-12-03] MEDS: Ondansetron 8 MG Tablet 24 MG PO (12:15)
[2021-12-03 14:32] VITALS: BP 153/91; PULSE 101; RESP 16; TEMP 36; O2SAT 97
== END 2021-12-03 23:59 | disposition home or self-care (01) ==
LOC: MEDOUTP 11:00
PROVIDERS: Referring Provider Internal Medicine Nephrology; Visit Provider Internal Medicine Nephrology
DX: M32.14 Glomerular disease in systemic lupus erythematosus (principal)
CPT/HCPCS: 96366; 96413; J7040; J7050; J9209; J3490; J9070

== ENCOUNTER → 2022-06-04 | Outpatient (CLI) | payer OTHER, MEDICAID, SELFPAY ==
--- NOTE | 2022-06-04 07:56 | ECHOLC_ITS ---
Version 2 Reason For Study: PERICARDIAL EFFUSION Procedure This was a limited 2D transthoracic echocardiogram. The study was technically difficult. Contrast injection was performed. Exam performed in department. Left Ventricle Normal LV size. Left ventricular systolic function is normal. The estimated ejection fraction is 60 %. No regional wall motion abnormalities noted. Right Ventricle Normal RV size. Normal systolic function. Atria Normal left atrium. Normal right atrium. Mitral Valve Normal mitral valve. Tricuspid Valve Normal tricuspid valve. Aortic Valve Normal aortic valve. Pulmonic Valve The pulmonic valve is not well visualized. Great Vessels Normal aortic root. The pulmonary artery is normal size. Normal inferior vena cava. Pericardium/Pleural No pericardial effusion. Medication 22 gauge I.V. with prn adaptor inserted into left arm. Diluted definity 2ml given slow IV push to enhance endocardial definition. MMode/2D Measurements & Calculations LVIDd: 4.4 cm IVSd: 1.6 cm LAV(MOD-sp4): 57.3 ml LVIDs: 3.2 cm LVPWd: 1.8 cm FS: 26.6 % LVAd ap4: 36.1 cm2 SV(MOD-sp4): 69.5 ml SV(sp4-el): 71.5 ml LVLd ap4: 8.6 cm EDV(MOD-sp4): 125.5 ml EDV(sp4-el): 127.9 ml LVAs ap4: 22.8 cm2 LVLs ap4: 7.8 cm ESV(MOD-sp4): 56.0 ml ESV(sp4-el): 56.4 ml EF(MOD-sp4): 55.4 % EF(sp4-el): 55.9 % LA A4 area: 19.6 cm2 LA dimension(2D): 4.1 cm RA A4 area: 15.3 cm2 ECHO/Echo Limited w/Contrast Interpretation Summary Normal LV size. Left ventricular systolic function is normal. The estimated ejection fraction is 60 %. Contrast injection was performed. Ordering Physician: Chantal Arreola Referring Physician: Chantal Arreola Performed By: Margi Omalley RCS
== END | disposition home or self-care (01) ==
LOC: CVS 07:55
PROVIDERS: Referring Provider Physician Assistant Medical; Visit Provider Physician Assistant Medical
DX: I31.3 Pericardial effusion (noninflammatory) (principal); D70.4 Cyclic neutropenia; M35.9 Systemic involvement of connective tissue, unspecified; I10 Essential (primary) hypertension
CPT/HCPCS: 93308; Q9957; A4216; C8924

== ENCOUNTER 2022-09-08 08:29 | Emergency (ER) | payer OTHER, MEDICAID, SELFPAY ==
[2022-09-08 08:30] VITALS: BP 133/98; PULSE 128; RESP 16; TEMP 36.1; O2SAT 100; BMI 44.6
--- NOTE | 2022-09-08 08:47 | EX.ED.DYSGE1 ---
HPI History of Present Illness Chief Complaint: Nausea/Vomiting/Diarrhea Informant: patient Onset/Context/Timing Onset: Days (7-day) Context: Gradual Onset Timing: Waxes and wanes Narrative Narrative: Patient presents secondary to vomiting and diarrhea. She said she had diarrhea for the past 7 days. She had 2 days where she had nausea and vomiting but that seems to have subsided. No fever or chills. She complains of left sided flank pain as well as generalized abdominal cramping. She called her PCP who told her to take Imodium. When this did not improve her symptoms she was advised to come to the emergency room. [facility] Medical History Alcohol use Allergies Anemia Anxiety Arthritis Back pain Cardiology follow-up encounter Chest pain Chronic neck pain Chronic thoracic back pain Depression Diabetes Essential (primary) hypertension Fever and neutropenia GERD (gastroesophageal reflux disease) History of edema History of pulmonary embolism History of renal disease History of steroid therapy History of stress test History of systemic lupus erythematosus Hx of echocardiogram Intertrigo Left pulmonary embolus Lupus Macromastia Morbid obesity Neutropenia associated with autoimmune disease Non-smoker Pericardial effusion cardiomyopathy Psoriatic arthritis Pulmonary embolism Rash Recent weight loss Renal failure Shoulder pain Thrombocytopenia Wears glasses Home Medications duloxetine 30 mg capsule,delayed release 60 mg PO BID anxiety 01/19/19 [History Last Taken 02/13/19] apixaban 5 mg tablet 5 mg PO BID #60 tabs 11/10/19 [Rx Last Taken Unknown] buspirone 5 mg tablet 5 mg PO TID 03/28/21 [History Last Taken Unknown] dulaglutide 0.75 mg/0.5 mL subcutaneous pen injector (Trulicity) 0.75 mg subcut TU 03/28/21 [History Last Taken Unknown] amlodipine 10 mg tablet (Norvasc) 5 mg PO DAILY 06/17/21 [History Last Taken Unknown] mycophenolate mofetil 500 mg tablet 1,000 mg PO BID 05/25/22 [History Last Taken Unknown] prednisone 5 mg tablet 5 mg PO DAILY 05/25/22 [History Last Taken Unknown] voclosporin 7.9 mg capsule (Lupkynis) 23.7 mg PO BID 05/25/22 [History Last Taken Unknown] colchicine 0.6 mg tablet 0.6 mg PO DAILY #90 tabs 05/27/22 [Rx Last Taken Unknown] tramadol 50 mg tablet 50 mg PO Q6H PRN pain #14 tabs 09/08/22 [Rx Last Taken Unknown] Allergy/AdvReac Type Severity Reaction Status Date / Time amoxicillin Allergy Rash Verified 09/08/22 08:32 cephalexin [From Keflex] Allergy Rash Verified 09/08/22 08:32 clindamycin Allergy Rash Verified 09/08/22 08:32 doxycycline Allergy Hives Verified 09/08/22 08:32 Iodinated Contrast Media Allergy Shortness Verified 09/08/22 08:32 [CONTRASTS] of breath morphine Allergy Swelling Verified 09/08/22 08:32 oxycodone Allergy Hives Verified 09/08/22 08:32 Penicillins Allergy Rash Verified 09/08/22 08:32 codeine AdvReac Nausea Verified 09/08/22 08:32 Family History Other Arthritis Thyroid disorder Surgical History History of appendectomy History of appendectomy History of biopsy History of History of endometrial ablation (04/02/21) History of tubal ligation Hx of cholecystectomy S/P pericardiocentesis (03/06/19) Social History Smoking Status: Never smoker alcohol intake: never substance use type: does not use caffeine: Yes Type: coffee Number of servings: 1 additional social history: Does Take Aspirin Does Not Take Ibuprofen ROS ROS ED Constitutional Constitutional ED: Denies chills or fever(s) Eyes Eyes: Denies change in vision or discharge from eye(s) ENT ENT ED: Denies discharge from eye(s), rhinorrhea or sore throat Cardiovascular Cardiovascular: Denies chest pain or palpitations Respiratory/Chest Respiratory/Chest: Denies cough or dyspnea Gastrointestinal Gastrointestinal: Reports abdominal pain, diarrhea, nausea and vomiting Genitourinary Genitourinary ED: Reports other Details: Decreased urine output ; Denies dysuria Musculoskeletal Musculoskeletal: Reports back pain; Denies extremity pain Integumentary Denies Abrasions or rash Neurologic Neurologic: Denies headache(s) or weakness Psychiatric Psychiatric: Denies anxiety or depression Allergic/Immunologic Allergic/Immunologic ED: Denies lip swelling or urticaria EXAM Physical Exam Const Vital Signs: 09/08/22 08:30 09/08/22 11:00 Temperature 97.0 F L Temperature Source Temporal Pulse Rate 128 H 109 H Respiratory Rate 16 18 Blood Pressure 133/98 H 148/106 H Blood Pressure Mean 109 120 Pulse Ox 100 99 Oxygen Delivery Method Room Air Room Air Positive well nourished and well developed General Appearance ED: well developed HEENT Reports normocephalic and head/scalp atraumatic Eyes PERRL and EOMs intact bilaterally Neck supple Chest Wall inspection of chest normal and palpation of chest normal Resp normal respiratory effort and clear to auscultation bilaterally Cardio regular rhythm Rate: tachycardic GI GI Narrative: Abdomen soft with diffuse tenderness outpatient. No guarding or rebound. Hypoactive bowel sounds are present. Palpation: soft Back/Spine Back/Spine Narrative: Tenderness in the left lumbar paraspinal region. Extremity normal to inspection Neuro oriented x3 and no sensory deficits noted Sensorium / Orientation: alert Motor Exam: strength 5/5 throughout Psych mental status grossly normal Skin no rashes or lesions noted MDM MDM MDM Narrative Medical decision making narrative: Given Dilaudid and Zofran along with IV fluids. Lab work and urinalysis obtained along with CT flank. Lab Data Attestation: I reviewed the patient's lab results. Labs: Laboratory Results - last 24 hr 09/08/22 09/08/22 09/08/22 09:05 09:05 09:05 WBC 4.6 RBC 4.79 Hgb 14.3 Hct 41.7 MCV 87.1 MCH 29.9 MCHC 34.3 RDW Std Deviation 38.8 RDW Coeff of Dennis 12.3 Plt Count 242 MPV 11.2 Immature Gran % (Auto) 0.600 Neut % (Auto) 71.5 H Lymph % (Auto) 11.2 L [place] % (Auto) 15.9 H Eos % (Auto) 0.4 Baso % (Auto) 0.4 Absolute Neuts (auto) 3.3 Absolute Lymphs (auto) 0.52 L Nucleated RBC % 0 Sodium 138 Potassium 3.5 Chloride 110 H Carbon Dioxide 19.0 L Anion Gap 9 BUN 28 H Creatinine 1.36 H Estim Creat Clear Calc 49.97 Est GFR (MDRD) Af Amer 56 L Est GFR (MDRD) Non-Af 46 L BUN/Creatinine Ratio 20.6 H Glucose 149 H Calcium 9.1 Total Bilirubin 1.00 Direct Bilirubin 0.45 H AST 45 H ALT 70 H Alkaline Phosphatase 110 Total Protein 7.9 Albumin 3.7 Globulin 4.2 Lipase 114 Serum , Qual NEGATIVE Urine Color Urine Clarity Urine pH Ur Specific [place] Urine Protein Urine Glucose (UA) Urine Ketones Urine Occult Blood Urine Nitrite Urine Bilirubin Urine Urobilinogen Ur Leukocyte Esterase Urine RBC Urine WBC Ur Squamous Epith Cells Urine Bacteria Urine Mucus 09/08/22 09:05 WBC RBC Hgb Hct MCV MCH MCHC RDW Std Deviation RDW Coeff of Dennis Plt Count MPV Immature Gran % (Auto) Neut % (Auto) Lymph % (Auto) [place] % (Auto) Eos % (Auto) Baso % (Auto) Absolute Neuts (auto) Absolute Lymphs (auto) Nucleated RBC % Sodium Potassium Chloride Carbon Dioxide Anion Gap BUN Creatinine Estim Creat Clear Calc Est GFR (MDRD) Af Amer Est GFR (MDRD) Non-Af BUN/Creatinine Ratio Glucose Calcium Total Bilirubin Direct Bilirubin AST ALT Alkaline Phosphatase Total Protein Albumin Globulin Lipase Serum , Qual Urine Color Yellow Urine Clarity Sl. Cloudy Urine pH 5.0 Ur Specific [place] 1.020 Urine Protein 100 H Urine Glucose (UA) Normal Urine Ketones 5 H Urine Occult Blood 250 H Urine Nitrite Negative Urine Bilirubin 3 H Urine Urobilinogen 4 H Ur Leukocyte Esterase 25 H Urine RBC 0 SEEN Urine WBC 0-5 SEEN Ur Squamous Epith Cells 10-25 SEEN Urine Bacteria 2+ Urine Mucus 0 SEEN Radiography Diagnostic Testing: Clinical Impression(s) from Imaging Studies Abdomen/Pelvis CT 09/08/22 10:05 IMPRESSION: Mild fluid distention of bowel which can be seen with gastroenteritis, diarrheal illness. 4.3 cm right ovarian cyst. Negative examination for renal stone. Electronically Signed: Meghan Ghotra MD at 10:48 EST , Treatment and Re-Evaluation Narrative: CBC reveals normal white count with no left shift. Chemistry studies reveal slight dehydration with a bicarb of 19 and a creatinine 1.36. LFTs largely unremarkable. Lipase normal. test is negative. Urinalysis reveals epithelial cells and bacteria with 0-5 white cells and no nitrites. CT flank reveals mild fluid distention of the bowel which can be seen with gastroenteritis. A 4.3 similar right ovarian cyst is noted. On repeat evaluation patient does feel somewhat improved. Heart rate is down to 107. I advised her that I believe the symptoms are all viral in nature. There is no focal wall thickening of the bowel. I will treat her with tramadol for pain. She does not believe she needs anything for nausea. Return instructions given. Discharge Plan Triage Chief Complaint: Nausea/Vomiting/Diarrhea ED Provider: Emmanuelle Godfrey Dx/Rx/DC Orders Clinical Impression: Viral gastroenteritis Instructions: ED Gastroenteritis, Viral (Adult) Prescriptions: New tramadol 50 mg tablet 50 mg PO Q6H PRN (Reason: pain) Qty: 14 0RF No Action prednisone 5 mg tablet 5 mg PO DAILY mycophenolate mofetil 500 mg tablet 1,000 mg PO BID Lupkynis 7.9 mg capsule 23.7 mg PO BID colchicine 0.6 mg tablet 0.6 mg PO DAILY Qty: 90 0RF duloxetine 30 MG capsule,delayed release(DR/EC) 60 mg PO BID apixaban 5 MG tablet 5 mg PO BID Qty: 60 0RF Rx Instructions: For the first 7 days you will take 10 mg which is 2 of your 5 mg pills once a day. After the first 7 days on day 8 he will begin taking only 1 pill or 5 mg twice a day and will stay on that until your primary care physician takes you off of the medication. You will need refills of this prescription. buspirone 5 mg Tablet 5 mg PO TID Trulicity 0.75 mg/0.5 mL Pen Injector 0.75 mg SUBCUT TU amlodipine [Norvasc] 10 mg tablet 5 mg PO DAILY Primary Care Provider: Susanne Sanders Referrals: Susanne Sanders, [Primary Care Provider] - 1-2 Weeks Disposition Disposition: Home, Self Care
[2022-09-08 09:14] LABS: Mucous, Urine 0 SEEN /hpf (<or=2+); Red Blood Cells-Urine 0 SEEN /hpf (0-5)
[2022-09-08] MEDS: HYDROmorphone 1 MG/ML Syringe 0.5 MG IV (09:18)
[2022-09-08] MEDS: Ondansetron 4 MG/2 ML Vial IV (09:18)
[2022-09-08 09:19] LABS: Color, Urine Yellow (Yellow); Glucose, Dipstick Normal (Normal); Ketone-Dipstick 5 mg/dl (Negative); Leukocyte Esterase-Dipstick 25 /ul (Negative); Nitrite-Dipstick Negative (Negative); Occult Blood-Urine 250 /ul (Negative); Protein-Dipstick 100 mg/dl (Negative); Urine Clarity Sl. Cloudy (Clear); Urine Urobilinogen 4 mg/dl (Normal)
[2022-09-08] MEDS: 0.9% Normal Saline 1,000 ML 1000 ML IV (09:19)
[2022-09-08 09:22] LABS: Absolute Lymphocyte Count 0.52 X10^3/uL (0.83-4.51); Absolute Neutrophil Count 3.3 X10^3/uL (2.0-7.7); Basophil# 0.02 X10^3/uL; Basophil% 0.4 % (0-1); Eosinophil# 0.02 X10^3/uL; Eosinophils% 0.4 % (0-5); Hematocrit 41.7 % (37-47); Hemoglobin 14.3 g/dL (12.0-15.0); Lymphocyte # 0.52 X10^3/ul (0.83-4.51); Lymphocyte % 11.2 % (19-41); Mean Corp Hgb Conc 34.3 g/dL (32-36); Mean Corpuscular Hgb 29.9 pg (27.0-32.0); Mean Corpuscular Volume 87.1 fL (81-99); Mean Platelet Vol. 11.2 fl (6.2-12.0); Monocyte# 0.74 X10^3/uL; Monocyte% 15.9 % (0-10); NRBC Flagged by Analyzer 0 % (0-5); Neutrophil # 3.31 X10^3/uL (2.7-7.7); Neutrophil % 71.5 % (47-70); POSITIVE DIFFERENTIAL YES; Platelet Count 242 K/mm3 (150-450); RBC Distribution Width CV 12.3 % (11.6-14.6); RBC Distribution Width SD 38.8 fl (35.1-43.9); Red Blood Count 4.79 M/mm3 (4.2-5.4); Urine Bilirubin Dipstick 3 mg/dL (Negative); White Blood Count 4.6 K/mm3 (4.4-11.0)
[2022-09-08 09:23] LABS: Differential Indicated SCAN CRITERIA MET
[2022-09-08 09:30] LABS: Internal QC Validated? YES +Cl - CLEAR BKGD; Pregnancy, Serum, hCG Quali. NEGATIVE Negative
[2022-09-08 09:34] LABS: Bacteria 2+ /hpf (None Seen); Squamous Epithelial Cells - UA 10-25 SEEN /hpf (5-10); White Blood Cells 0-5 SEEN /hpf (0-5)
[2022-09-08 09:36] LABS: AST(SGOT) 45 U/L (15-37); Alanine Aminotransfer ALT/SGPT 70 U/L (13-56); Albumin, Serum 3.7 g/dL (3.2-5.0); Alkaline Phosphatase 110 U/L (45-117); Anion Gap 9 (5-15); BUN 28 mg/dL (7-18); BUN/Creat Ratio 20.6 RATIO (10-20); Bilirubin, Direct 0.45 mg/dL (0.00-0.30); Calcium,Total 9.1 mg/dL (8.5-10.1); Chloride 110 mmol/L (98-107); Creatinine, Serum 1.36 mg/dL (0.55-1.02); EST Glomerular Filtration Rate 46 mL/min (>60); Est Glom Filt Rate - Afr Amer 56 mL/min (>60); Estimated Creatinine Clearance 49.97 ml/min; Globulin 4.2 g/dL (2.2-4.2); Glucose 149 mg/dL (74-106); Lipase 114 U/L (73-393); Potassium 3.5 mmol/L (3.5-5.1); Protein, Total 7.9 g/dL (6.4-8.2); Sodium Level 138 mmol/L (136-145)
--- NOTE | 2022-09-08 10:05 | CT_ITS ---
HISTORY: Left flank pain, diarrhea x 1 week. History of lupus, diabetes, cholecystectomy, appendectomy, tubal ligation, endometrial ablation, . TECHNIQUE: Helically acquired images were obtained of the abdomen and pelvis without oral or IV contrast. A radiation dose optimization technique was used for this scan. 522 images. COMPARISON: None. FINDINGS: LOWER CHEST: Lung bases clear. BOWEL: Bowel nondilated. Mild fluid distention of small bowel and colon. No focal pericolonic inflammatory change. PERITONEUM: No significant free fluid. LIVER/SPLEEN/PANCREAS: Nonenlarged. GALLBLADDER/BILIARY TREE: Gallbladder absent. KIDNEYS AND URETERS: No nephrolithiasis or obstructing renal calculus. ADRENAL GLANDS: No nodules. VESSELS: No abdominal aortic aneurysm. PELVIC ORGANS: Tubal ligation clips and intrauterine device in place. 3.7 x 4.3 cm right adnexal cyst. BONES: Mild lumbar dextrocurvature. CT/Abdomen/Pelvis without Cont IMPRESSION: Mild fluid distention of bowel which can be seen with gastroenteritis, diarrheal illness. 4.3 cm right ovarian cyst. Negative examination for renal stone. Electronically Signed: Meghan Ghotra MD at 10:48 EST ,
[2022-09-08] MEDS: 0.9% Normal Saline 1,000 ML 150 ML IV (10:40)
[2022-09-08 11:00] VITALS: BP 148/106; PULSE 109; RESP 18; O2SAT 99
[2022-09-08 13:31] VITALS: BP 148/104; PULSE 76; RESP 16; O2SAT 99
== END 2022-09-08 13:32 | disposition home or self-care (01) ==
PROVIDERS: Emergency Provider Emergency Medicine; Visit Provider Emergency Medicine
DX: A08.4 Viral intestinal infection, unspecified (principal); Z86.711 Personal history of pulmonary embolism
CPT/HCPCS: 74176; 80048; 80076; 81001; 83690; 84703; 85025; 96361; 96374; 96375; 99284; J7030; A4216; J2405

== ENCOUNTER 2023-02-27 10:47 | Emergency (ER) | payer OTHER, MEDICAID, SELFPAY ==
[2023-02-27 10:49] VITALS: BP 124/90; PULSE 116; RESP 18; TEMP 36.4; O2SAT 99; BMI 43.7
[2023-02-27 11:07] VITALS: BP 147/105; PULSE 106; RESP 16; O2SAT 97
--- NOTE | 2023-02-27 11:07 | EDS_ITS ---
HPI <TADEO Elias - Last Filed: 02/27/23 13:56> History of Present Illness Chief Complaint: Allergic Reaction Narrative Narrative: Patient presenting with allergic reaction.. She states that she had a bilateral breast reduction performed on Wednesday and when she woke up morning she noticed that her uvula was swollen and she had several pruritic papular bumps across her upper arms and chest. Since then, the rash has worsened and has become widespread across her chest, upper arms, and torso. She feels that her uvula is swollen more but she is still tolerating secretions and eating and drinking without difficulty. She denies any shortness of breath or difficulty breathing. Has been taking Benadryl since without any relief. She states she does have an allergy to oxycodone and was given this after surgery but she stopped taking it on . PFSH <TADEO Elias - Last Filed: 02/27/23 13:56> [facility] Medical History Alcohol use Allergies Anemia Anxiety Arthritis Back pain Bilateral pendulous breasts Cardiology follow-up encounter Cardiomyopathy Chest pain Chronic neck pain Chronic thoracic back pain CKD (chronic kidney disease) Depression Diabetes Diarrhea Essential (primary) hypertension Fever and neutropenia History of edema History of pulmonary embolism History of renal disease History of steroid therapy History of stress test History of systemic lupus erythematosus Hx of echocardiogram Intertrigo Irritable colon Left pulmonary embolus Lupus Macromastia Morbid obesity Neutropenia associated with autoimmune disease Non-smoker Pericardial effusion cardiomyopathy Psoriatic arthritis Pulmonary embolism Rash Recent weight loss Renal failure Shoulder pain SLE (systemic lupus erythematosus) Thrombocytopenia Wears glasses Home Medications duloxetine 30 mg capsule,delayed release 60 mg PO BID anxiety 01/19/19 [History Last Taken 02/13/19] apixaban 5 mg tablet 5 mg PO BID #60 tabs 11/10/19 [Rx Last Taken Unknown] buspirone 5 mg tablet 5 mg PO TID 03/28/21 [History Last Taken Unknown] dulaglutide 0.75 mg/0.5 mL subcutaneous pen injector (Trulicity) 0.75 mg subcut TU 03/28/21 [History Last Taken Unknown] voclosporin 7.9 mg capsule (Lupkynis) 23.7 mg PO BID 05/25/22 [History Last Lamont en Unknown] levonorgestrel 20.4 mcg/24 hrs (8 yrs) 52 mg intrauterine device (Liletta) 1 device intrauterine ONCE 09/24/22 [History Last Taken Unknown] amlodipine 5 mg tablet (Norvasc) 5 mg PO DAILY 01/18/23 [History Last Taken Unknown] mycophenolate mofetil 500 mg tablet (CellCept) 1,500 mg PO BID 01/18/23 [History Last Taken Unknown] epinephrine 0.3 mg/0.3 mL injection, auto-injector (EpiPen) 0.3 mg (0.3 mL) IM .once PRN hypersensitivity reaction #2 ea 02/27/23 [Rx Last Taken Unknown] prednisone 20 mg tablet 40 mg PO DAILY 4 days #8 tabs 02/27/23 [Rx Last Taken Unknown] Allergy/AdvReac Type Severity Reaction Status Date / Time amoxicillin Allergy Rash Verified 02/27/23 10:51 cephalexin [From Keflex] Allergy Rash Verified 02/27/23 10:51 clindamycin Allergy Rash Verified 02/27/23 10:51 doxycycline Allergy Hives Verified 02/27/23 10:51 Iodinated Contrast Media Allergy Shortness Verified 02/27/23 10:51 [CONTRASTS] of breath morphine Allergy Swelling Verified 02/27/23 10:51 oxycodone Allergy Hives Verified 02/27/23 10:51 Penicillins Allergy Rash Verified 02/27/23 10:51 codeine AdvReac Nausea Verified 02/27/23 10:51 Family History Mother Arthritis Osteoporosis Rheumatoid arthritis Father Arthritis Hypertension Other Thyroid disorder Surgical History History of appendectomy History of appendectomy History of biopsy History of History of endometrial ablation (04/02/21) History of tubal ligation Hx of breast reduction, elective Hx of cholecystectomy S/P pericardiocentesis (03/06/19) Social History Smoking Status: Never smoker alcohol intake: never substance use type: does not use caffeine: Yes Type: coffee Number of servings: 1 additional social history: Does Take Aspirin Does Not Take Ibuprofen ROS <TADEO Elias - Last Filed: 02/27/23 13:56> ROS ED Constitutional Constitutional ED: Denies chills or fever(s) Cardiovascular Cardiovascular: Denies chest pain or palpitations Respiratory/Chest Respiratory/Chest: Denies cough, dyspnea, stridor, tachypnea or wheezing Gastrointestinal Gastrointestinal: Denies abdominal pain, nausea or vomiting Musculoskeletal Musculoskeletal: Denies arthralgias or myalgias Integumentary Reports rash; Denies abscess or Abrasions Neurologic Neurologic: Denies weakness Psychiatric Psychiatric: Denies anxiety or depression Allergic/Immunologic Allergic/Immunologic ED: Reports mouth swelling and urticaria; Denies lip swelling EXAM <TADEO Elias - Last Filed: 02/27/23 13:56> Physical Exam Const Vital Signs: 02/27/23 10:49 02/27/23 11:07 02/27/23 12:35 Temperature 97.5 F L Temperature Source Temporal Pulse Rate 116 H 106 H 98 Respiratory Rate 18 16 18 Blood Pressure 124/90 H 147/105 H 142/86 H Blood Pressure Mean 101 119 104 Pulse Ox 99 97 95 Oxygen Delivery Method Room Air Room Air Room Air 02/27/23 13:17 Temperature Temperature Source Pulse Rate 88 Respiratory Rate 16 Blood Pressure 130/90 H Blood Pressure Mean Pulse Ox 99 Oxygen Delivery Method Positive well developed and no apparent distress General Appearance ED: well developed HEENT Reports normocephalic and head/scalp atraumatic HEENT Narrative: Uvula slightly swollen. Mouth ED: Yes moist mucous membranes normal Eyes PERRL and EOMs intact bilaterally Neck full ROM and supple Chest Wall inspection of chest normal Chest Narrative: Bilateral breast reduction incisions covered with bandage with no obvious erythema, edema, or purulent discharge. Resp normal respiratory effort and clear to auscultation bilaterally Cardio regular rate and regular rhythm GI soft to palpation, non-tender, non-distended and no masses Back/Spine normal ROM and normal to inspection Extremity normal to inspection and full ROM Neuro oriented x3, CN's II-XII intact bilaterally, moves all extremities, no focal motor deficits and no sensory deficits noted Sensorium / Orientation: awake and alert Psych mental status grossly normal and thought process normal Skin no wounds Skin Narrative: Diffuse papular rash across breast, upper arms, and torso. <Dr. Jaiden Almonte DO - Last Filed: 02/27/23 19:36> Physical Exam Const Vital Signs: 02/27/23 10:49 02/27/23 11:07 02/27/23 12:35 Temperature 97.5 F L Temperature Source Temporal Pulse Rate 116 H 106 H 98 Respiratory Rate 18 16 18 Blood Pressure 124/90 H 147/105 H 142/86 H Blood Pressure Mean 101 119 104 Pulse Ox 99 97 95 Oxygen Delivery Method Room Air Room Air Room Air 02/27/23 13:17 Temperature Temperature Source Pulse Rate 88 Respiratory Rate 16 Blood Pressure 130/90 H Blood Pressure Mean Pulse Ox 99 Oxygen Delivery Method [facility] <TADEO Elias - Last Filed: 02/27/23 13:56> [facility] Narrative Medical decision making narrative: Patient presenting due to an allergic reaction that began on when she woke up after having a breast reduction on Wednesday. She thinks that it is from the oxycodone that she took Wednesday as she does have known allergy to this. She is well-appearing and in no acute distress. She does have a diffuse pruritic papular rash across her torso, upper arms, and chest. No swelling to her tongue or lips. She reports a mild swelling to her uvula. Her airway is intact, there is no stridor and she is tolerating secretions. She has been given IV Solu-Medrol, Benadryl, p.o. Pepcid. Patient was observed for over 2 hours and on reexamination she states she feels much better, the rash is much less itchy and she denies any throat swelling. I given her a prescription for prednisone and she can continue to take the Benadryl as needed. I have given her prescription for an EpiPen with instructions to take if she feels her airway is becoming compromised. She has been given strict return instructions and discharged home in stable condition. She is comfortable with plan. <Dr. Jaiden Almonte DO - Last Filed: 02/27/23 19:36> [facility] Narrative Medical decision making narrative: Patient presenting due to an allergic reaction that began on when she woke up after having a breast reduction on Wednesday. She thinks that it is from the oxycodone that she took Wednesday as she does have known allergy to this. She is well-appearing and in no acute distress. She does have a diffuse pruritic papular rash across her torso, upper arms, and chest. No swelling to her tongue or lips. She reports a mild swelling to her uvula. Her airway is intact, there is no stridor and she is tolerating secretions. She has been given IV Solu-Medrol, Benadryl, p.o. Pepcid. Patient was observed for over 2 hours and on reexamination she states she feels much better, the rash is much less itchy and she denies any throat swelling. I given her a prescription for prednisone and she can continue to take the Benadryl as needed. I have given her prescription for an EpiPen with instructions to take if she feels her airway is becoming compromised. She has been given strict return instructions and discharged home in stable condition. She is comfortable with plan. 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 I perform my own [id number] evaluation. I agree with the plan of work-up. Allergic reaction to the medication oxycodone. 2 days postop breast reduction. Was given oxycodone for which she has had hives in the past. Symptoms started following day has not continued the oxycodone noted increasing rash on her upper torso she states her uvula is swollen. No trouble swallowing. Exam there is some mild swelling to the uvula airway patent no stridor. There is erythema upper torso. Patient treated with steroids Benadryl Pepcid in the ED. She is monitored clinically improving symptoms. Continue prescriptions for allergy treatment and epinephrine pen. She will continue to hold oxycodone. She will follow-up with her doctors. Discharge Plan Triage Chief Complaint: Allergic Reaction ED Midlevel Provider: Jesika Jimenez ED Provider: Jaiden Almonte Dx/Rx/DC Orders Clinical Impression: Allergic reaction Instructions: ED General Allergic Reactions Prescriptions: New prednisone 20 mg tablet 40 mg PO DAILY 4 Days Qty: 8 0RF epinephrine [EpiPen] 0.3 mg/0.3 mL auto-injector 0.3 mg IM .once PRN (Reason: hypersensitivity reaction) Qty: 2 0RF Rx Instructions: You can adminster a second dose 5-15 minutes after the first if symptoms do not resolve, do not give more than 2 doses. Seek medical attention if symptoms persist. No Action Lupkynis 7.9 mg capsule 23.7 mg PO BID Liletta 20.4 mcg/24 hrs (8 yrs) 52 mg intrauterine device 1 device intrauterine ONCE Rx Instructions: as a single dose amlodipine [Norvasc] 5 mg tablet 5 mg PO DAILY mycophenolate mofetil [CellCept] 500 mg tablet 1,500 mg PO BID duloxetine 30 MG capsule,delayed release(DR/EC) 60 mg PO BID apixaban 5 MG tablet 5 mg PO BID Qty: 60 0RF Rx Instructions: For the first 7 days you will take 10 mg which is 2 of your 5 mg pills once a day. After the first 7 days on day 8 he will begin taking only 1 pill or 5 mg twice a day and will stay on that until your primary care physician takes you off of the medication. You will need refills of this prescription. buspirone 5 mg Tablet 5 mg PO TID Trulicity 0.75 mg/0.5 mL Pen Injector 0.75 mg SUBCUT TU Primary Care Provider: Susanne Sanders Referrals: Susanne Sanders, [Primary Care Provider] - 3-5 Days Activity Restrictions/Additional Instructions: Please return for any worsening of symptoms especially if you notice any worsening of swelling in your throat, lips, tongue. Please follow-up with your PCP. Disposition Disposition: Home, Self Care Discharge Date/Time: 02/27/23 13:17
[2023-02-27] MEDS: Famotidine 20 MG Tablet PO (11:26)
[2023-02-27] MEDS: DiphenhydrAMINE 50 MG/ML Syringe 25 MG IV (11:26)
[2023-02-27] MEDS: MethylPREDNISolone 125 MG/2 ML Vial IV (11:28)
[2023-02-27 12:35] VITALS: BP 142/86; PULSE 98; RESP 18; O2SAT 95
[2023-02-27 13:17] VITALS: BP 130/90; PULSE 88; RESP 16; O2SAT 99
== END 2023-02-27 13:17 | disposition home or self-care (01) ==
PROVIDERS: Emergency Provider Emergency Medicine; Visit Provider Emergency Medicine
DX: R21 Rash and other nonspecific skin eruption (principal); T40.2X5A Adverse effect of other opioids, initial encounter; N18.9 Chronic kidney disease, unspecified; Z86.711 Personal history of pulmonary embolism
CPT/HCPCS: 96374; 96375; 99285; A4216

== ENCOUNTER 2023-04-02 10:31 | Emergency (ER) | payer OTHER, MEDICAID, SELFPAY ==
[2023-04-02 10:33] VITALS: BP 150/127; PULSE 112; RESP 24; TEMP 35.9; O2SAT 100; BMI 43.4
--- NOTE | 2023-04-02 10:45 | CT_ITS ---
STUDY: CTA CHEST REASON FOR EXAM: Female, 38 years old. Chest pain with radiation to the left upper extremity. Shortness of breath. RADIATION DOSAGE (If Supplied By Facility): CTDIvol = ( 16.22 ) mGy, DLP = ( 529.17 ) mGycm TECHNIQUE: The examination was performed with the intravenous administration of IV 100mL Isovue-370. Post-processing of the angiographic images was performed, with multiplanar reformation and 3D reconstruction. Individualized dose optimization techniques were used for this CT. COMPARISON: Comparison is made with prior study dated March 30, 2021. FINDINGS: There is a 2.9 cm x 1.9 cm mass in the left breast. Normal enhancement of the main pulmonary artery and right and left pulmonary arteries. Normal enhancement of the bilateral peripheral pulmonary arteries. There is no demonstrated pulmonary embolism. Study is slightly limited by contrast timing/pulmonary opacification. Normal thoracic aorta and visualized great vessels. There is no demonstrated aortic dissection. Normal heart and pericardium. No coronary artery calcification is seen. Normal mediastinum. Normal hilar regions. Normal visualized trachea and bronchi. The lungs are well expanded. Normal pulmonary parenchyma. Normal pleura. Normal chest wall structures. There are degenerative changes of thoracic spine. Normal visualized upper abdomen. CT/CTA Chest W/WO Contrast IMPRESSION: No evidence of pulmonary embolism. 2.9 Bob by 1.9 cm mass in the left breast. Electronically Signed: Kyle Almanzar MD at 13:33 EDT ,
--- NOTE | 2023-04-02 10:45 | EKG12_ITS ---
Test Reason : CP Blood Pressure : / mmHG Vent. Rate : 114 BPM Atrial Rate : 114 BPM P-R Int : 140 ms QRS Dur : 086 ms QT Int : 330 ms P-R-T Axes : 046 -09 054 degrees QTc Int : 454 ms Sinus tachycardia with Premature atrial complexes Otherwise normal ECG Confirmed by CANDIDA TRONCOSO, CHELSEA ([id number]), editor school photograph ARSH HERNDON ([id number]) on 04/05/2023 10:49:33 A M Referred By: ROSELIA Confirmed By:LUIS TIRADO MD
--- NOTE | 2023-04-02 11:01 | ED.VIS.CHEST ---
HPI History of Present Illness Chief Complaint: Chest Pain Informant: patient Onset/Context/Timing Onset: Today and Hours (3) Activity at onset: sudden Timing: Continuous Quality: Positive for Pressure Location: Substernal, Left Parasternal and Left Chest Worsened By: - (Laying down) Relieved By: - (Sitting up) Associated Symptoms: Positive for Lightheadedness; Negative for Nausea, Vomiting, Diaphoresis, Dyspnea, Cough, Fever, Acid Reflux or Palpitations Narrative Narrative: Patient presents with chest pain that began approximately 3 hours prior to arrival. Patient states it began rather suddenly. Patient states it is constant. Patient states it feels like a pressure. Patient states it is over the substernal area and then radiates to the left side of her chest. Patient states it is worse when she lays down and better when she sits up. Patient admits to some lightheadedness with this. Patient denies any shortness of breath or cough. Patient denies any palpitations. Patient did have a recent breast reduction surgery. Patient states she has had a PE in the past. Patient is on Eliquis. CVD Risk Factors: Negative for Hypertension, Diabetes, Hypercholesterolemia, Family History 1' </=55 or Smoking PE Risk Factors: Positive for Recent Travel/Surgery and Prior DVT or PE; Negative for Recent Immobilization, Cancer or OCP + Smoking + >/=35 PFSH PFSH Medical History Alcohol use Allergies Anemia Anxiety Arthritis Back pain Bilateral pendulous breasts Cardiology follow-up encounter Cardiomyopathy Chest pain Chronic neck pain Chronic thoracic back pain CKD (chronic kidney disease) Depression Diabetes Diarrhea Essential (primary) hypertension Fever and neutropenia History of edema History of pulmonary embolism History of renal disease History of steroid therapy History of stress test History of systemic lupus erythematosus Hx of echocardiogram Intertrigo Irritable colon Left pulmonary embolus Lupus Macromastia Morbid obesity Neutropenia associated with autoimmune disease Non-smoker Pericardial effusion cardiomyopathy Psoriatic arthritis Pulmonary embolism Rash Recent weight loss Renal failure Shoulder pain SLE (systemic lupus erythematosus) Thrombocytopenia Wears glasses Home Medications duloxetine 30 mg capsule,delayed release 60 mg PO BID anxiety 01/19/19 [History Last Taken 02/13/19] apixaban 5 mg tablet 5 mg PO BID #60 tabs 11/10/19 [Rx Last Taken Unknown] buspirone 5 mg tablet 5 mg PO TID 03/28/21 [History Last Taken Unknown] dulaglutide 0.75 mg/0.5 mL subcutaneous pen injector (Trulicity) 0.75 mg subcut TU 03/28/21 [History Last Taken Unknown] voclosporin 7.9 mg capsule (Lupkynis) 23.7 mg PO BID 05/25/22 [History Last Taken Unknown] levonorgestrel 20.4 mcg/24 hrs (8 yrs) 52 mg intrauterine device (Liletta) 1 device intrauterine ONCE 09/24/22 [History Last Taken Unknown] amlodipine 5 mg tablet (Norvasc) 5 mg PO DAILY 01/18/23 [History Last Taken Unknown] mycophenolate mofetil 500 mg tablet (CellCept) 1,500 mg PO BID 01/18/23 [History Last Taken Unknown] epinephrine 0.3 mg/0.3 mL injection, auto-injector (EpiPen) 0.3 mg (0.3 mL) IM .once PRN hypersensitivity reaction #2 ea 02/27/23 [Rx Last Taken Unknown] prednisone 20 mg tablet 40 mg PO DAILY 4 days #8 tabs 02/27/23 [Rx Last Taken Unknown] hydrocodone-acetaminophen 5-325mg 5mg-325mg 1 tab PO Q6H PRN PRN Pain 3 days #10 TABLETS 04/02/23 [Rx Last Taken Unknown] Allergy/AdvReac Type Severity Reaction Status Date / Time amoxicillin Allergy Rash Verified 04/02/23 10:32 cephalexin [From Keflex] Allergy Rash Verified 04/02/23 10:32 clindamycin Allergy Rash Verified 04/02/23 10:32 doxycycline Allergy Hives Verified 04/02/23 10:32 Iodinated Contrast Media Allergy Shortness Verified 04/02/23 10:32 [CONTRASTS] of breath morphine Allergy Swelling Verified 04/02/23 10:32 oxycodone Allergy Hives Verified 04/02/23 10:32 Penicillins Allergy Rash Verified 04/02/23 10:32 codeine AdvReac Nausea Verified 04/02/23 10:32 Family History Mother Arthritis Osteoporosis Rheumatoid arthritis Father Arthritis Hypertension Other Thyroid disorder Surgical History History of appendectomy History of appendectomy History of biopsy History of History of endometrial ablation (04/02/21) History of tubal ligation Hx of breast reduction, elective Hx of cholecystectomy S/P pericardiocentesis (03/06/19) Social History Smoking Status: Never smoker alcohol intake: never substance use type: does not use caffeine: Yes Type: coffee Number of servings: 1 additional social history: Does Take Aspirin Does Not Take Ibuprofen ROS ROS ED Constitutional Constitutional ED: Reports chills and subjective; Denies fever(s) Eyes Eyes: Denies blurry vision or change in vision ENT ENT ED: Denies rhinorrhea or sore throat Cardiovascular Cardiovascular: Reports chest pain; Denies palpitations Respiratory/Chest Respiratory/Chest: Denies dyspnea Gastrointestinal Gastrointestinal: Denies abdominal pain, nausea or vomiting Genitourinary Genitourinary ED: Denies dysuria or hematuria Musculoskeletal Musculoskeletal: Reports neck pain; Denies back pain Integumentary Denies abscess or rash Neurologic Neurologic: Denies headache(s) or weakness Allergic/Immunologic Allergic/Immunologic ED: Denies mouth swelling or urticaria EXAM Physical Exam Const Vital Signs: 04/02/23 10:33 04/02/23 11:05 04/02/23 11:35 Temperature 96.7 F L Temperature Source Temporal Pulse Rate 112 H 104 H Respiratory Rate 24 H Respiratory Effort Short of Breath Blood Pressure 150/127 H 135/99 H Blood Pressure Mean 134 Pulse Ox 100 Oxygen Delivery Method Room Air 04/02/23 11:48 04/02/23 12:35 04/02/23 15:16 Temperature Temperature Source Pulse Rate 91 100 106 H Respiratory Rate 16 18 24 H Respiratory Effort Blood Pressure 100/70 144/93 H 139/91 H Blood Pressure Mean 80 110 107 Pulse Ox 98 100 96 Oxygen Delivery Method Room Air Room Air Room Air Positive well nourished, well developed and obese General Appearance ED: well developed and NAD Nutritional Appearance: obese HEENT normocephalic and atraumatic Eyes PERRL and EOMs intact bilaterally Neck supple and no JVD Chest Wall palpation of chest normal Resp normal respiratory effort and clear to auscultation bilaterally Effort and Inspection: Negative for respiratory distress Cardio regular rhythm Rate: tachycardic GI normal to inspection, nondistended, normoactive bowel sounds, soft to palpation, non-tender and non-distended Extremity normal to inspection General Extremety ED: Negative for edema or tenderness General Extremity: Negative for edema Neuro oriented x3, CN's II-XII intact bilaterally and no sensory deficits noted Sensorium / Orientation: awake and alert Motor Exam: strength 5/5 throughout Psych mental status grossly normal MDM MDM MDM Narrative Medical decision making narrative: Differential diagnosis includes pulmonary embolism, cardiac dysrhythmia, cardiac ischemia, pneumonia, pneumothorax, GERD, and anxiety. EKG will be obtained to assess for cardiac dysrhythmia and cardiac ischemia. CTA of the chest will be obtained to assess for pulmonary embolism. CBC will be obtained to assess for leukocytosis and anemia. Basic metabolic profile will be obtained to assess for electrolyte abnormality and renal function. PT with INR and PTT will be obtained to assess for coagulopathy. High-sensitivity troponin will be obtained to assess for cardiac ischemia. 2-hour high-sensitivity troponin will be obtained to assess for ongoing cardiac ischemia. Lab Data Attestation: I reviewed the patient's lab results. Lab results narrative: CBC was reviewed and was within normal limits. Basic metabolic profile was reviewed and was within normal limits. PT with INR and PTT were reviewed and were within normal limits. High-sensitivity troponin was reviewed and was normal at 6. 2-hour repeat high-sensitivity troponin was reviewed and was normal at 6. Labs: Laboratory Results - last 24 hr 04/02/23 04/02/23 04/02/23 11:30 11:30 11:30 WBC 7.8 RBC 4.24 Hgb 12.7 Hct 37.2 MCV 87.7 MCH 30.0 MCHC 34.1 RDW Std Deviation 38.3 RDW Coeff of Dennis 12.0 Plt Count 266 MPV 11.2 Immature Gran % (Auto) 0.500 Neut % (Auto) 81.2 H Lymph % (Auto) 9.1 L [place] % (Auto) 8.0 Eos % (Auto) 0.9 Baso % (Auto) 0.3 Absolute Neuts (auto) 6.3 Absolute Lymphs (auto) 0.71 L Nucleated RBC % 0 PT 13.4 INR 1.0 APTT 29.5 Sodium 137 Potassium 4.5 Chloride 107 Carbon Dioxide 22.0 Anion Gap 8 BUN 21 H Creatinine 0.66 Estim Creat Clear Calc 101.96 Est GFR (MDRD) Af Amer 127 Est GFR (MDRD) Non-Af 105 BUN/Creatinine Ratio 31.7 H Glucose 115 H Calcium 9.2 Troponin I High Sens 6 04/02/23 13:55 WBC RBC Hgb Hct MCV MCH MCHC RDW Std Deviation RDW Coeff of [place] Plt Count MPV Immature Gran % (Auto) Neut % (Auto) Lymph % (Auto) [place] % (Auto) Eos % (Auto) Baso % (Auto) Absolute Neuts (auto) Absolute Lymphs (auto) Nucleated RBC % PT INR APTT Sodium Potassium Chloride Carbon Dioxide Anion Gap BUN Creatinine Estim Creat Clear Calc Est GFR (MDRD) Af Amer Est GFR (MDRD) Non-Af BUN/Creatinine Ratio Glucose Calcium Troponin I High Sens 6 Radiography Diagnostic Testing: Clinical Impression(s) from Imaging Studies Chest CTA 04/02/23 10:45 IMPRESSION: No evidence of pulmonary embolism. 2.9 Bob by 1.9 cm mass in the left breast. Electronically Signed: Kyle Almanzar MD at 13:33 EDT , Because of the tachycardia and recent surgery, CTA of the chest was obtained. There is no evidence of pulmonary embolism. There is no aortic dissection noted. There is a 2.9 cm x 1.9 cm mass in the left breast. This was interpreted by the radiologist and was also independently reviewed by myself. EKG Initial EKG: Attestation: I personally reviewed and interpreted this EKG as follows: Interpretation: No Acute Injury Pattern and Sinus Tachycardia (With occasional PVCs and PACs with a rate of 114) Comments: EKG was obtained. On my independent interpretation, it showed a sinus tachycardia with a rate of 114. [place] interval, QRS interval, and QTc intervals were all normal. [place] was normal. There are no acute ST or T wave changes. Prior EKG tracings: available for review Prior: Unchanged (01/18/2023) Treatment and Re-Evaluation :: Patient was given a dose of aspirin initially. Patient was given Benadryl and Solu-Medrol prior to CTA due to her contrast allergy. Patient was given a dose of fentanyl for her pain. Patient was advised of her findings. Patient states she was still having pain on reevaluation. Patient was given a dose of Toradol. Patient had no improvement of her pain with this. Patient states she has had Dilaudid in the past which has helped. Patient was given a dose of this. 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 I discussed the case with Dr. Aranda. He states that the patient does not need an echocardiogram. He stated patient has had 2 echocardiograms in the past which did not show any pericardial effusion. There is no pericardial effusion on the CT scan. He states that the patient can follow-up in the office. Patient was advised of this. Patient was instructed to follow-up in 5 to 7 days. Patient understood and was agreeable with the plan. All questions were answered. Discharge Plan Triage Chief Complaint: Chest Pain Other Complaint: Shortness of Breath ED Provider: Alton Hidalgo Dx/Rx/DC Orders Clinical Impression: Chest pain Instructions: ED Chest Pain, Noncardiac Prescriptions: New hydrocodone-acetaminophen [hydrocodone-acetaminophen] 5-325 mg tablet 1 tab PO Q6H PRN PRN (Reason: Pain) 3 Days Qty: 10 0RF No Action Lupkynis 7.9 mg capsule 23.7 mg PO BID Liletta 20.4 mcg/24 hrs (8 yrs) 52 mg intrauterine device 1 device intrauterine ONCE Rx Instructions: as a single dose amlodipine [Norvasc] 5 mg tablet 5 mg PO DAILY mycophenolate mofetil [CellCept] 500 mg tablet 1,500 mg PO BID duloxetine 30 MG capsule,delayed release(DR/EC) 60 mg PO BID apixaban 5 MG tablet 5 mg PO BID Qty: 60 0RF Rx Instructions: For the first 7 days you will take 10 mg which is 2 of your 5 mg pills once a day. After the first 7 days on day 8 he will begin taking only 1 pill or 5 mg twice a day and will stay on that until your primary care physician takes you off of the medication. You will need refills of this prescription. buspirone 5 mg Tablet 5 mg PO TID Trulicity 0.75 mg/0.5 mL Pen Injector 0.75 mg SUBCUT TU prednisone 20 mg tablet 40 mg PO DAILY 4 Days Qty: 8 0RF epinephrine [EpiPen] 0.3 mg/0.3 mL auto-injector 0.3 mg IM .once PRN (Reason: hypersensitivity reaction) Qty: 2 0RF Rx Instructions: You can adminster a second dose 5-15 minutes after the first if symptoms do not resolve, do not give more than 2 doses. Seek medical attention if symptoms persist. Primary Care Provider: Susanne Sanders Referrals: Lon Aranda MD [Med Staff - Active Staff] - 5-7 Days Susanne Sanders DO [Primary Care Provider] - 3-5 Days Disposition Disposition: Home, Self Care Discharge Date/Time: 04/02/23 15:49
[2023-04-02] MEDS: Aspirin 81 MG TAB.CHEW 324 MG PO (11:34)
[2023-04-02] MEDS: DiphenhydrAMINE 50 MG/ML Syringe 25 MG IV (11:34)
[2023-04-02 11:35] VITALS: BP 135/99; PULSE 104
[2023-04-02] MEDS: Nitroglycerin SL (ED/IMG/CATH) 0.4 MG TABLET SL (11:35)
[2023-04-02] MEDS: MethylPREDNISolone 125 MG/2 ML Vial IV (11:46)
[2023-04-02 11:47] LABS: Absolute Lymphocyte Count 0.71 X10^3/uL (0.83-4.51); Absolute Neutrophil Count 6.3 X10^3/uL (2.0-7.7); Basophil# 0.02 X10^3/uL; Basophil% 0.3 % (0-1); Eosinophil# 0.07 X10^3/uL; Eosinophils% 0.9 % (0-5); Hematocrit 37.2 % (37-47); Hemoglobin 12.7 g/dL (12.0-15.0); Lymphocyte # 0.71 X10^3/ul (0.83-4.51); Lymphocyte % 9.1 % (19-41); Mean Corp Hgb Conc 34.1 g/dL (32-36); Mean Corpuscular Volume 87.7 fL (81-99); Mean Platelet Vol. 11.2 fl (6.2-12.0); Monocyte# 0.62 X10^3/uL; NRBC Flagged by Analyzer 0 % (0-5); Neutrophil # 6.33 X10^3/uL (2.7-7.7); Neutrophil % 81.2 % (47-70); Platelet Count 266 K/mm3 (150-450); RBC Distribution Width SD 38.3 fl (35.1-43.9); Red Blood Count 4.24 M/mm3 (4.2-5.4); White Blood Count 7.8 K/mm3 (4.4-11.0)
[2023-04-02 11:48] VITALS: BP 100/70; PULSE 91; RESP 16; O2SAT 98
[2023-04-02 12:07] LABS: Anion Gap 8 (5-15); BUN 21 mg/dL (7-18); BUN/Creat Ratio 31.7 RATIO (10-20); Calcium,Total 9.2 mg/dL (8.5-10.1); Chloride 107 mmol/L (98-107); Creatinine, Serum 0.66 mg/dL (0.55-1.02); EST Glomerular Filtration Rate 105 mL/min (>60); Est Glom Filt Rate - Afr Amer 127 mL/min (>60); Estimated Creatinine Clearance 101.96 ml/min; Glucose 115 mg/dL (74-106); Potassium 4.5 mmol/L (3.5-5.1); Sodium Level 137 mmol/L (136-145); Troponin-I HS (w/2H Reflex) 6 pg/mL (3.0-54.0)
[2023-04-02 12:18] LABS: Partial Thromboplast Time 29.5 Seconds (24.1-36.2); Prothrombin Time (Protime)PT. 13.4 SECONDS (11.7-14.9)
[2023-04-02] MEDS: fentaNYL 100 MCG/2 ML Ampul 50 MCG IV (12:34)
[2023-04-02 12:35] VITALS: BP 144/93; PULSE 100; RESP 18; O2SAT 100
[2023-04-02 13:40] LABS: Reflex Troponin-HS? (from REC) Y
[2023-04-02 14:15] LABS: Troponin-I HS 6 pg/mL (3.0-54.0)
[2023-04-02] MEDS: Ketorolac 30 MG/ML Syringe IV (15:15)
[2023-04-02 15:16] VITALS: BP 139/91; PULSE 106; RESP 24; O2SAT 96
[2023-04-02] MEDS: HYDROmorphone 1 MG/ML Syringe 0.5 MG IV (15:42)
== END 2023-04-02 15:49 | disposition home or self-care (01) ==
PROVIDERS: Emergency Provider Emergency Medicine; Visit Provider Emergency Medicine
DX: R07.9 Chest pain, unspecified (principal); R06.02 Shortness of breath; N18.9 Chronic kidney disease, unspecified; E66.9 Obesity, unspecified; Z86.711 Personal history of pulmonary embolism; Z79.01 Long term (current) use of anticoagulants
CPT/HCPCS: 36415; 71275; 80048; 84484; 85025; 85610; 85730; 93005; 96374; 96375; 99285; Q9967; A4216

== ENCOUNTER 2023-06-08 12:36 | Day surgery (SDC) | payer OTHER, MEDICAID, SELFPAY ==
[2023-06-08] VITALS (7 sets, daily range): BP systolic 126–138; BP diastolic 94–102; PULSE 96–110; RESP 16; TEMP 36.3–37; O2SAT 95–98; BMI 42.0
[2023-06-08 13:14] LABS: Internal QC Validated? YES +Cl - CLEAR BKGD; Pregnancy, Urine Negative Negative
--- NOTE | 2023-06-08 13:14 | HP.PCM_ITS ---
History and Physical Date of Admission: 06/08/23 MARYANNE BOO, is a 37 F who presents to the office today for PMH SLE, alcohol, depression, HTN, DMII, Pulmonary edema, PE, macromastia, obesity, psoriatic arthritis, thrombocytopenia. PSH appendectomy, , tubal ligation, cholecystectomy, pericardiocentesis. FH father esophageal cancer who is currently undergoing treatment with suspicion of reflux as cause tumor in lower part of esophagus and extended into stomach, lymphnode involvement. [facility] ED presentation 09.08.22 with emesis, abd cramping and diarrhea for seven days. Following imaging and biochemical workup symptoms believed to be viral and discharged with tramadol. ? CT abd/pel 09.08.22 abd pain/diarrhea with small bowel and colon mildly distended with fluid, gastroenteritis; right ovarian cyst. PCP seen 09.18.22 with noted resolution of nausea, emesis and diarrhea. *BGI established 3.3. initially referred by with N/V/D, N/V resolved and diarrhea continued watery stools 5+times a day with food noted as a trigger. This was her second occurrence in that year. Diarrhea has now resolved. BM 1- 2/day with soft/formed stool without difficulty. Reflux also a difficulty for which she takes OTC Pepcid PRN which she takes 1-2 times a week, does note food triggers. Symptoms worst during the night and will wake her from sleep. ROS Const Constitutional: No anorexia, fatigue, fever(s), weight change or sleep problems Eyes Eyes: No change in vision ENT ENT: No abnormal hearing, difficulty swallowing, mouth lesions, tongue swelling or throat swelling Resp Respiratory: No cough or shortness of breath Cardio Cardiology: No chest pain at rest, chest pain with exertion, shortness of breath or dyspnea on exertion Gastro GI: No difficulty swallowing Genitourinary-Female: No difficulty urinating or burning urination Musc Musculoskeletal: No joint pain, joint swelling, muscle weakness or decreased muscle mass Skin Skin: No hair loss in leg, yellowing of the eye, itchy eyes, rash, skin ulcer or skin swelling Neuro Neurology: No abnormal hearing, abnormal movements, confusion, unsteady gait/balance or memory loss Psych Psychiatric: No anxiety, No confusion and No memory loss Endo Endocrine: No fatigue or weight change Aller/Imm Allergy/Immunologic: No itchy eyes, throat swelling or tongue swelling Shane/Lymp Hematologic/Lymphatic: No easy bleeding, easy bruising or enlarged lymph nodes Exam Const General: cooperative and comfortable Nutritional Appearance: average body habitus and well nourished [facility] Head: normal to inspection Ears: hearing grossly normal bilaterally Nose: external nose normal Face and sinus: normal facial exam Mouth: oral mucosae normal Throat: posterior oropharynx normal Eyes General: appearance normal, both eyes and all related structures Neck Neck: normal visual inspection Chest Chest palpation & inspection: normal inspection of the chest and normal palpation of entire chest wall Resp Effort & Inspection: normal respiratory effort Auscultation: Bilateral: Clear to Auscultation Cardio Palpation: normal PMI Rate: regular rate Rhythm: regular rhythm GI Inspection: normal to inspection Auscultation: normal bowel sounds Percussion: normal to percussion Palpation: no hepatosplenomegaly Skin General: no rashes or lesions noted Neuro General: patient alert Extrem General: normal to inspection Psych Affect: normal affect Quality Reporting Tobacco Screening ([facility] 138) Smoking Status: Never smoker Assessment and Plan Assessment and Plan (1) GERD (gastroesophageal reflux disease): Status: Chronic Qualifiers: Esophagitis presence: esophagitis presence not specified Qualified Code(s): K21.9 - Gastro-esophageal reflux disease without esophagitis Plan: She has a history of gastroesophageal oxygen has been refractory to diet changes and as needed famotidine. Her father also with esophageal cancer and she would like to be screened for Mcintyre's esophagus or any other abnormality of the upper GI tract. She is at risk for Candice esophagitis due to immunosuppression for lupus nephritis. At this time she does not have any problem with bleeding, abdominal pain, chest pain or shortness of breath. She will not have to stop her Eliquis for this procedure. She was explained alternatives, risk, benefits including outstanding bleeding, infection, sepsis, perforation, need for emergent surgery . She have an ASA of 3. I have examined the patient and the H&P has been reviewed. There are no clinical changes since date of exam.
[2023-06-08] MEDS: Lactated Ringers 1,000 ML 15 ML IV (13:38)
--- NOTE | 2023-06-08 13:45 | EGD_PTH ---
PATIENT: MARYANNE BOO LOC: EN U#:[id number] AGE/SX: 38/F ROOM: RE06/08/[address]: Dr. Nima James DO : 1985 BED: DIS: 06/08/2023 SPEC #: [id number] RECD: 06/09/23 09:24 STATUS: TRES REQ #: [id number] HELEN: 06/08/23 13:[address]: Nima James DEPT: SURGICAL PATHOLOGY RECD BY: Gena Buchanan ENTERED: 06/09/23 09:24 SP TYPE: EGD BIOPSY ABIGAIL DR: Dr. Susanne Sanders DO Tissues: Esophagus, NOS Procedures: Surgery Specimen Level IV Comments: @ Originally on account #[id number] Req #[id number] HEADER OPERATION: EGD with biopsies PRE-OP DIAGNOSIS: GERD TISSUE SUBMITTED: Random esophagus biopsy MICROSCOPIC DIAGNOSIS Esophagus, random biopsy: Fragments of squamous mucosa with minimal chronic inflammation. See comment. SJ: 06/10/2023 COMMENT A few organisms consistent with actinomyces are noted, may represents mouth contaminants. Correlation with clinical, endoscopic findings and appropriate follow up are necessary. MICROSCOPIC DESCRIPTION Slides are reviewed. GROSS DESCRIPTION Received is one container labeled with the patient name and designated esophagus. The specimen consists of multiple irregular fragments of light no soft tissue that in aggregate measure 0.7 x 0.5 x 0.1 cm. The specimen is totally submitted in one cassette. / AM:cc 06/09/23 TC:3 [facility]: [id number]
--- NOTE | 2023-06-08 14:15 | OP.CCLET_ITS ---
06/08/2023 Susanne Sanders Re : Upper GI endoscopy procedure for Kendra Franco Dear Tommy This procedure was performed on Thursday, June 08, 2023. My impressions and recommendations are as follows: Impressions : - Mildly severe reflux esophagitis with no bleeding. - A large amount of a phytobezoar in the stomach. - No gross lesions in the duodenal bulb. - Biopsies were taken with a cold forceps for evaluation of eosinophilic esophagitis. Recommendations : - Discharge patient to home. - Resume previous diet. - Continue present medications. - Await pathology results. - Gastric emptying study My findings are described in the full procedure note, which is enclosed. If I can be of further assistance, please feel free to contact me at . Sincerely, Nima James, 06/08/2023 2:14:50 PM This report has been signed electronically.
--- NOTE | 2023-06-08 14:15 | OP.EGD_ITS ---
Patient Name: Kendra Franco Procedure Date: 06/08/2023 1:52 PM Date of : 1985 Age: 38 Procedure: Upper GI endoscopy Indications: Dyspepsia, Indigestion, Heartburn Providers: Nima James DO Referring MD: Susanne Sanders Medicines: Monitored Anesthesia Care Patient Profile: This is a 38 year old female. Refer to note in patient chart for documentation of history and physical. Patient has symptoms of chronic abdominal distention, chronic epigastric abdominal pain, chronic heartburn and chronic nausea. Complications: No immediate complications. Procedure: Pre-Anesthesia Assessment: - Prior to the procedure, a History and Physical was performed, and patient medications and allergies were reviewed. The patient is competent. The risks and benefits of the procedure and the sedation options and risks were discussed with the patient. All questions were answered and informed consent was obtained. Patient identification and proposed procedure were verified by the physician in the pre-procedure area. Mental Status Examination: alert and oriented. Airway Examination: normal oropharyngeal airway and neck mobility. Respiratory Examination: clear to auscultation. CV Examination: normal. Prophylactic Antibiotics: The patient does not require prophylactic antibiotics. Prior Anticoagulants: The patient has taken no anticoagulant or antiplatelet agents. ASA Grade Assessment: III - A patient with severe systemic disease. After reviewing the risks and benefits, the patient was deemed in satisfactory condition to undergo the procedure. The anesthesia plan was to use monitored anesthesia care (MAC). Immediately prior to administration of medications, the patient was re-assessed for adequacy to receive sedatives. The heart rate, respiratory rate, oxygen saturations, blood pressure, adequacy of pulmonary ventilation, and response to care were monitored throughout the procedure. The physical status of the patient was re-assessed after the procedure. After obtaining informed consent, the endoscope was passed under direct vision. Throughout the procedure, the patient's blood pressure, pulse, and oxygen saturations were monitored continuously. The gastroscope was introduced through the mouth, and advanced to the second part of duodenum. The upper GI endoscopy was accomplished without difficulty. The patient tolerated the procedure well. Scope In: 2:03:44 PM Scope Out: 2:05:33 PM Total Procedure Duration Time 0 hours 1 minute 49 seconds Findings: Mildly severe esophagitis with no bleeding was found 36 to 38 cm from the incisors. Biopsies were obtained from the proximal and distal esophagus with cold forceps for histology of suspected eosinophilic esophagitis. A large amount of a phytobezoar was found in the entire examined stomach. No gross lesions were noted in the duodenal bulb. Impression: - Mildly severe reflux esophagitis with no bleeding. - A large amount of a phytobezoar in the stomach. - No gross lesions in the duodenal bulb. - Biopsies were taken with a cold forceps for evaluation of eosinophilic esophagitis. Recommendation: - Discharge patient to home. - Resume previous diet. - Continue present medications. - Await pathology results. - Gastric emptying study Procedure Code(s): --- Professional --- 48759, Esophagogastroduodenoscopy, flexible, transoral; with biopsy, single or multiple CPT copyright 2021 [employer]. All rights reserved. The codes documented in this report are preliminary and upon web art director review may be revised to meet current compliance requirements. Nima James DO 06/08/2023 2:14:50 PM This report has been signed electronically. Number of Addenda: 0 Note Initiated On: 06/08/2023 1:52 PM
== END 2023-06-08 14:56 | disposition home or self-care (01) ==
LOC: EN 12:43 → AC 12:43
PROVIDERS: Anesthesiology; Visit Provider Internal Medicine Gastroenterology
PROC: 0DJ08ZZ Inspection of Upper Intestinal Tract, Via Natural or Artificial Opening Endoscopic (ICD-10-PCS; CPT 43235; principal; 2023-06-08 13:40)
DX: K21.00 Gastro-esophageal reflux disease with esophagitis, without bleeding (principal); E66.01 Morbid (severe) obesity due to excess calories; Z68.41 Body mass index [BMI] 40.0-44.9, adult; G89.29 Other chronic pain; F41.9 Anxiety disorder, unspecified; F32.A Depression, unspecified; R73.03 Prediabetes; I10 Essential (primary) hypertension; Z79.01 Long term (current) use of anticoagulants; Z79.899 Other long term (current) drug therapy; Z86.711 Personal history of pulmonary embolism
CPT/HCPCS: 43239; 81025; 88305; J7120; J2405

== ENCOUNTER → 2023-06-23 | Outpatient (CLI) | payer OTHER, MEDICAID, SELFPAY ==
--- NOTE | 2023-06-23 10:06 | NM_ITS ---
CLINICAL: 38-year-old female with history of clinical gastroparesis. SEMI-SOLID PHASE 99m Tc SULFUR COLLOID GASTRIC EMPTYING STUDY COMPARISON: None available FINDINGS: The patient was administered 1.0 mCi of 99m Tc sulfur colloid mixed with oatmeal and consumed per os. Image acquisitions in the anterior-posterior projection were obtained for 60 minutes. There is prompt visualization of the stomach. There is no gastroesophageal reflux identified. First order kinetics are maintained throughout the duration of the acquisitions. The T ? linear fit was calculated to be 64.82 minutes, (Normal: 12-56 minutes). NM/Gastric Emptying Study IMPRESSION: 1. ABNORMAL 99m Tc sulfur colloid semi-solid phase (oatmeal) gastric emptying imaging examination. A. There is delayed semi-solid phase gastric emptying compared to normal controls with maintained first order kinetics throughout all components of the examination. (Scotty et al, J Nucl Med Tech 38: 186, 2010). Electronically Signed: Arsenio Valadez DO at 21:10 EDT ,
== END | disposition home or self-care (01) ==
PROVIDERS: Referring Provider Internal Medicine Gastroenterology; Visit Provider Internal Medicine Gastroenterology
DX: K31.84 Gastroparesis (principal)
CPT/HCPCS: 78264; A9541

== ENCOUNTER 2024-01-07 09:56 | Outpatient (CLI) | payer OTHER, SELFPAY ==
[2024-01-07 10:06] VITALS: BP 156/95; PULSE 99; RESP 16; TEMP 36.3; O2SAT 99; BMI 39.1
[2024-01-07 10:23] LABS: Red Blood Cells-Urine 0 SEEN /hpf (0-5)
[2024-01-07 10:35] LABS: Color, Urine Yellow (Yellow); Glucose, Dipstick Normal (Normal); Ketone-Dipstick Negative (Negative); Leukocyte Esterase-Dipstick 25 /ul (Negative); Nitrite-Dipstick Negative (Negative); Occult Blood-Urine Negative /ul (Negative); Protein-Dipstick 15 mg/dl (Negative); Specific Gravity, Urine 1.005 (1.002-1.030); Urine Bilirubin Dipstick Negative (Negative); Urine Clarity Clear (Clear); Urine Urobilinogen Normal (Normal); Urine pH 6.5 (5.0 - 8.0)
[2024-01-07] MEDS: 0.9% NaCl Peripheral Flush Adult/Peds IV (10:45)
[2024-01-07 10:47] LABS: White Blood Cells 0-5 SEEN /hpf (0-5)
[2024-01-07 10:48] LABS: Bacteria 3+ /hpf (None Seen); Mucous, Urine 1+ /hpf (<or=2+); Squamous Epithelial Cells - UA 0-5 SEEN /hpf (5-10)
[2024-01-07 10:53] VITALS: BP 118/85; PULSE 92; RESP 16
[2024-01-07 10:54] LABS: Protein, Urine (Random) 11.5 mg/dL (<11.9); Protein:Creat Ratio 287 mg/g CRE (0-200)
[2024-01-07] MEDS: 0.9% Normal Saline (500mL Bag) 500 ML IV (10:56)
[2024-01-07] MEDS: Ondansetron 8 MG in 0.9% Normal Saline (50mL Bag) 50 ML 216 MG IV (10:56)
[2024-01-07 11:05] LABS: Erythrocyte Sedimentation Rate 28 mm/hr (0-30)
[2024-01-07 11:07] LABS: Absolute Lymphocyte Count 0.47 X10^3/uL (0.83-4.51); Absolute Neutrophil Count 4.4 X10^3/uL (2.0-7.7); Basophil# 0.01 X10^3/uL; Basophil% 0.2 % (0-1); Eosinophil# 0.05 X10^3/uL; Eosinophils% 0.9 % (0-5); Hematocrit 39.2 % (37-47); Hemoglobin 13.4 g/dL (12.0-15.0); Lymphocyte # 0.47 X10^3/ul (0.83-4.51); Lymphocyte % 8.8 % (19-41); Mean Corp Hgb Conc 34.2 g/dL (32-36); Mean Corpuscular Hgb 29.3 pg (27.0-32.0); Mean Corpuscular Volume 85.6 fL (81-99); Mean Platelet Vol. 11.6 fl (6.2-12.0); Monocyte# 0.37 X10^3/uL; Monocyte% 6.9 % (0-10); NRBC Flagged by Analyzer 0 % (0-5); Neutrophil # 4.41 X10^3/uL (2.7-7.7); Neutrophil % 82.8 % (47-70); POSITIVE DIFFERENTIAL YES; Platelet Count 200 K/mm3 (150-450); RBC Distribution Width CV 12.1 % (11.6-14.6); RBC Distribution Width SD 37.4 fl (35.1-43.9); Red Blood Count 4.58 M/mm3 (4.2-5.4); White Blood Count 5.3 K/mm3 (4.4-11.0)
[2024-01-07 11:29] LABS: Vitamin D,25 Hydroxy 38.1 ng/mL
[2024-01-07 11:53] LABS: ALB/GLOB Ratio 0.8 RATIO (0.9-2.4); AST(SGOT) 14 U/L (15-37); Alanine Aminotransfer ALT/SGPT 22 U/L (13-56); Albumin, Serum 3.3 g/dL (3.2-5.0); Alkaline Phosphatase 60 U/L (45-117); Anion Gap 8 (5-15); BUN 19 mg/dL (7-18); BUN/Creat Ratio 26.7 RATIO (10-20); CRP 4.88 mg/L (0.0-3.0); Chloride 104 mmol/L (98-107); Creatinine, Serum 0.71 mg/dL (0.55-1.02); EST Glomerular Filtration Rate 96 mL/min (>60); Est Glom Filt Rate - Afr Amer 117 mL/min (>60); Estimated Creatinine Clearance 127.76 ml/min; Globulin 4.2 g/dL (2.2-4.2); Glucose 116 mg/dL (74-106); Potassium 3.8 mmol/L (3.5-5.1); Protein, Total 7.5 g/dL (6.4-8.2); Sodium Level 134 mmol/L (136-145)
[2024-01-07] MEDS: CYCLOPHOSPHAMIDE IV (12:01)
[2024-01-07] MEDS: NORMAL SALINE 0.9% IV (12:01)
[2024-01-07 13:16] VITALS: BP 131/86; PULSE 97; RESP 16; TEMP 36.3; O2SAT 100
[2024-01-08 08:11] LABS: Complement C3 70 mg/dL (82-167); HEPATITIS B SURFACE AG Negative (Negative); Hep C Antibodies Non Reactive (Non Reactive); Hepatitis A IgM Antibody Negative (Negative); Hepatitis B Core AB IgM Negative (Negative); Immunoglobulin G 1307 mg/dL (586-1602)
[2024-01-10 13:08] LABS: Anti-dsDNA Ab 50 IU/mL (0-9)
== END 2024-01-07 09:57 | disposition home or self-care (01) ==
LOC: MEDOUTP 09:58
DX: M32.14 Glomerular disease in systemic lupus erythematosus (principal)
CPT/HCPCS: 80053; 80074; 81001; 82306; 82570; 82784; 84156; 85025; 85652; 86140; 86160; 86225; 96367; 96413; J7040; J7050; A4216; J2405; J3490; J9070

== ENCOUNTER 2024-01-21 10:03 | Outpatient (CLI) | payer OTHER, SELFPAY ==
[2024-01-21 10:23] VITALS: BP 153/93; PULSE 91; RESP 16; TEMP 36.1; O2SAT 98; BMI 39.2
[2024-01-21] MEDS: 0.9% NaCl Peripheral Flush Adult/Peds IV (10:30)
[2024-01-21] MEDS: 0.9% Normal Saline (500mL Bag) 500 ML 15 ML IV (10:30)
[2024-01-21] MEDS: Ondansetron 8 MG in 0.9% Normal Saline (50mL Bag) 50 ML 216 MG IV (10:30)
[2024-01-21 10:55] LABS: Protein, Urine (Random) 23.7 mg/dL (<11.9); Protein:Creat Ratio 260 mg/g CRE (0-200)
[2024-01-21 10:57] LABS: Color, Urine Yellow (Yellow); Glucose, Dipstick Normal (Normal); Ketone-Dipstick Negative (Negative); Leukocyte Esterase-Dipstick 25 /ul (Negative); Nitrite-Dipstick Negative (Negative); Occult Blood-Urine 10 /ul (Negative); Protein-Dipstick 30 mg/dl (Negative); Specific Gravity, Urine 1.005 (1.002-1.030); Urine Bilirubin Dipstick Negative (Negative); Urine Clarity Sl. Cloudy (Clear); Urine Urobilinogen Normal (Normal)
[2024-01-21 10:59] LABS: Bacteria 1+ /hpf (None Seen); Mucous, Urine RARE /hpf (<or=2+); Red Blood Cells-Urine 0-5 SEEN /hpf (0-5); Squamous Epithelial Cells - UA 5-10 SEEN /hpf (5-10); White Blood Cells 0-5 SEEN /hpf (0-5)
[2024-01-21 11:03] LABS: ALB/GLOB Ratio 0.9 RATIO (0.9-2.4); AST(SGOT) 16 U/L (15-37); Alanine Aminotransfer ALT/SGPT 28 U/L (13-56); Albumin, Serum 3.7 g/dL (3.2-5.0); Alkaline Phosphatase 57 U/L (45-117); Anion Gap 5 (5-15); BUN 12 mg/dL (7-18); BUN/Creat Ratio 17.3 RATIO (10-20); CRP < 2.90 mg/L (0.0-3.0); Calcium,Total 9.1 mg/dL (8.5-10.1); Chloride 105 mmol/L (98-107); Creatinine, Serum 0.69 mg/dL (0.55-1.02); EST Glomerular Filtration Rate 99 mL/min (>60); Est Glom Filt Rate - Afr Amer 120 mL/min (>60); Estimated Creatinine Clearance 131.78 ml/min; Globulin 4.1 g/dL (2.2-4.2); Glucose 83 mg/dL (74-106); Potassium 3.1 mmol/L (3.5-5.1); Protein, Total 7.8 g/dL (6.4-8.2); Sodium Level 137 mmol/L (136-145)
[2024-01-21 11:05] LABS: Erythrocyte Sedimentation Rate 15 mm/hr (0-30)
[2024-01-21 11:07] LABS: Absolute Lymphocyte Count 1.11 X10^3/uL (0.83-4.51); Absolute Neutrophil Count 2.7 X10^3/uL (2.0-7.7); Basophil# 0.02 X10^3/uL; Basophil% 0.4 % (0-1); Eosinophil# 0.05 X10^3/uL; Eosinophils% 1.1 % (0-5); Hematocrit 41.8 % (37-47); Hemoglobin 13.8 g/dL (12.0-15.0); Lymphocyte # 1.11 X10^3/ul (0.83-4.51); Lymphocyte % 24.6 % (19-41); Mean Corpuscular Hgb 28.8 pg (27.0-32.0); Mean Corpuscular Volume 87.1 fL (81-99); Mean Platelet Vol. 10.4 fl (6.2-12.0); Monocyte# 0.58 X10^3/uL; Monocyte% 12.9 % (0-10); NRBC Flagged by Analyzer 0 % (0-5); Neutrophil # 2.72 X10^3/uL (2.7-7.7); Neutrophil % 60.3 % (47-70); Platelet Count 234 K/mm3 (150-450); RBC Distribution Width CV 12.8 % (11.6-14.6); RBC Distribution Width SD 40.1 fl (35.1-43.9); White Blood Count 4.5 K/mm3 (4.4-11.0)
[2024-01-21 11:11] LABS: Vitamin D,25 Hydroxy 42.1 ng/mL
[2024-01-21] MEDS: NORMAL SALINE 0.9% IV (11:37)
[2024-01-21] MEDS: CYCLOPHOSPHAMIDE IV (11:37)
[2024-01-21 12:50] VITALS: BP 132/86; PULSE 99; RESP 16; TEMP 36.4; O2SAT 97
[2024-01-22 10:08] LABS: Complement C3 74 mg/dL (82-167)
[2024-01-24 09:07] LABS: Anti-dsDNA Ab 54 IU/mL (0-9)
== END 2024-01-21 10:04 | disposition home or self-care (01) ==
LOC: MEDOUTP 10:03
DX: M32.14 Glomerular disease in systemic lupus erythematosus (principal); M32.12 Pericarditis in systemic lupus erythematosus; E55.9 Vitamin D deficiency, unspecified; I31.9 Disease of pericardium, unspecified; Z79.899 Other long term (current) drug therapy
CPT/HCPCS: 80053; 81001; 82306; 82570; 84156; 85025; 85652; 86140; 86160; 86225; J7040; J7050; A4216; J2405; J3490; J9075

== ENCOUNTER 2024-02-07 09:54 | Outpatient (CLI) | payer OTHER, SELFPAY ==
[2024-02-07 10:01] VITALS: BP 152/94; PULSE 87; RESP 16; TEMP 35.6; BMI 40.6
[2024-02-07] MEDS: 0.9% NaCl Peripheral Flush Adult/Peds IV (10:12)
[2024-02-07 10:17] LABS: Mucous, Urine 0 SEEN /hpf (<or=2+); Red Blood Cells-Urine 0 SEEN /hpf (0-5)
[2024-02-07 10:24] LABS: Color, Urine Yellow (Yellow); Glucose, Dipstick Normal (Normal); Ketone-Dipstick Negative (Negative); Leukocyte Esterase-Dipstick 25 /ul (Negative); Nitrite-Dipstick Negative (Negative); Occult Blood-Urine 10 /ul (Negative); Protein-Dipstick 30 mg/dl (Negative); Urine Bilirubin Dipstick Negative (Negative); Urine Clarity Clear (Clear); Urine Urobilinogen Normal (Normal); Urine pH 6.5 (5.0 - 8.0)
[2024-02-07 10:33] LABS: Bacteria RARE /hpf (None Seen); Protein, Urine (Random) 43.6 mg/dL (<11.9); Protein:Creat Ratio 423 mg/g CRE (0-200); Squamous Epithelial Cells - UA 0-5 SEEN /hpf (5-10); White Blood Cells 0-5 SEEN /hpf (0-5)
[2024-02-07] MEDS: Ondansetron 8 MG in 0.9% Normal Saline (50mL Bag) 50 ML 216 MG IV (10:38)
[2024-02-07] MEDS: 0.9% Normal Saline (500mL Bag) 500 ML IV (10:42)
[2024-02-07 10:47] LABS: Absolute Lymphocyte Count 0.65 X10^3/uL (0.83-4.51); Absolute Neutrophil Count 3.1 X10^3/uL (2.0-7.7); Basophil# 0.01 X10^3/uL; Basophil% 0.3 % (0-1); Eosinophil# 0.01 X10^3/uL; Eosinophils% 0.3 % (0-5); Hematocrit 34.5 % (37-47); Hemoglobin 11.9 g/dL (12.0-15.0); Lymphocyte # 0.65 X10^3/ul (0.83-4.51); Lymphocyte % 16.6 % (19-41); Mean Corp Hgb Conc 34.5 g/dL (32-36); Mean Corpuscular Hgb 30.1 pg (27.0-32.0); Mean Corpuscular Volume 87.3 fL (81-99); Mean Platelet Vol. 10.4 fl (6.2-12.0); Monocyte# 0.17 X10^3/uL; Monocyte% 4.3 % (0-10); NRBC Flagged by Analyzer 0 % (0-5); Neutrophil # 3.07 X10^3/uL (2.7-7.7); Neutrophil % 78.2 % (47-70); Platelet Count 173 K/mm3 (150-450); RBC Distribution Width CV 13.8 % (11.6-14.6); Red Blood Count 3.95 M/mm3 (4.2-5.4); White Blood Count 3.9 K/mm3 (4.4-11.0)
[2024-02-07 10:55] LABS: Erythrocyte Sedimentation Rate 16 mm/hr (0-30)
[2024-02-07 11:03] LABS: ALB/GLOB Ratio 0.8 RATIO (0.9-2.4); AST(SGOT) 13 U/L (15-37); Alanine Aminotransfer ALT/SGPT 26 U/L (13-56); Albumin, Serum 3.2 g/dL (3.2-5.0); Alkaline Phosphatase 63 U/L (45-117); Anion Gap 2 (5-15); BUN 10 mg/dL (7-18); BUN/Creat Ratio 16.7 RATIO (10-20); CRP < 2.90 mg/L (0.0-3.0); Calcium,Total 8.1 mg/dL (8.5-10.1); Chloride 107 mmol/L (98-107); EST Glomerular Filtration Rate 117 mL/min (>60); Est Glom Filt Rate - Afr Amer 142 mL/min (>60); Estimated Creatinine Clearance 154.33 ml/min; Glucose 134 mg/dL (74-106); Potassium 3.7 mmol/L (3.5-5.1); Protein, Total 7.2 g/dL (6.4-8.2); Sodium Level 137 mmol/L (136-145)
[2024-02-07 11:06] LABS: Vitamin D,25 Hydroxy 54.6 ng/mL
[2024-02-07] MEDS: NORMAL SALINE 0.9% IV (11:34)
[2024-02-07] MEDS: CYCLOPHOSPHAMIDE IV (11:34)
[2024-02-08 08:06] LABS: Complement C3 54 mg/dL (82-167)
[2024-02-08 11:09] LABS: Anti-dsDNA Ab 74 IU/mL (0-9)
== END 2024-02-07 09:55 | disposition home or self-care (01) ==
LOC: MEDOUTP 09:54
DX: M32.14 Glomerular disease in systemic lupus erythematosus (principal); M32.12 Pericarditis in systemic lupus erythematosus; I31.9 Disease of pericardium, unspecified; E55.9 Vitamin D deficiency, unspecified; Z79.899 Other long term (current) drug therapy
CPT/HCPCS: 96365; 36415; 80053; 81001; 82306; 82570; 84156; 85025; 85652; 86140; 86160; 86225; A4216; J2405; J9075

== ENCOUNTER 2024-02-23 09:46 | Outpatient (CLI) | payer OTHER, SELFPAY ==
[2024-02-23 09:53] VITALS: RESP 16
[2024-02-23] MEDS: 0.9% NaCl Peripheral Flush Adult/Peds IV (10:02)
[2024-02-23] MEDS: 0.9% Normal Saline (500mL Bag) 500 ML 250 ML IV (10:04)
[2024-02-23 10:09] LABS: Mucous, Urine 0 SEEN /hpf (<or=2+); Red Blood Cells-Urine 0 SEEN /hpf (0-5)
[2024-02-23] MEDS: Ondansetron 8 MG in 0.9% Normal Saline (50mL Bag) 50 ML 216 MG IV (10:18)
[2024-02-23 10:26] LABS: Protein, Urine (Random) 38.5 mg/dL (<11.9); Protein:Creat Ratio 173 mg/g CRE (0-200)
[2024-02-23 10:38] LABS: Color, Urine Yellow (Yellow); Glucose, Dipstick Normal (Normal); Ketone-Dipstick Negative (Negative); Leukocyte Esterase-Dipstick 25 /ul (Negative); Nitrite-Dipstick Negative (Negative); Occult Blood-Urine Negative /ul (Negative); Protein-Dipstick 30 mg/dl (Negative); Specific Gravity, Urine 1.015 (1.002-1.030); Urine Clarity Sl. Cloudy (Clear); Urine Urobilinogen 1 mg/dl (Normal)
[2024-02-23 10:39] LABS: Urine Bilirubin Dipstick 1 mg/dL (Negative)
[2024-02-23 10:45] LABS: Bacteria 2+ /hpf (None Seen); Squamous Epithelial Cells - UA 5-10 SEEN /hpf (5-10); White Blood Cells 0-5 SEEN /hpf (0-5)
[2024-02-23 10:47] LABS: Absolute Lymphocyte Count 0.98 X10^3/uL (0.83-4.51); Absolute Neutrophil Count 2.7 X10^3/uL (2.0-7.7); Basophil# 0.04 X10^3/uL; Basophil% 0.9 % (0-1); Eosinophil# 0.05 X10^3/uL; Eosinophils% 1.2 % (0-5); Hematocrit 40.5 % (37-47); Hemoglobin 13.7 g/dL (12.0-15.0); Lymphocyte # 0.98 X10^3/ul (0.83-4.51); Mean Corp Hgb Conc 33.8 g/dL (32-36); Mean Corpuscular Hgb 29.9 pg (27.0-32.0); Mean Corpuscular Volume 88.4 fL (81-99); Mean Platelet Vol. 10.9 fl (6.2-12.0); Monocyte# 0.47 X10^3/uL; NRBC Flagged by Analyzer 0 % (0-5); Neutrophil # 2.71 X10^3/uL (2.7-7.7); Neutrophil % 63.4 % (47-70); Platelet Count 219 K/mm3 (150-450); RBC Distribution Width CV 13.4 % (11.6-14.6); Red Blood Count 4.58 M/mm3 (4.2-5.4); White Blood Count 4.3 K/mm3 (4.4-11.0)
[2024-02-23 10:49] LABS: Erythrocyte Sedimentation Rate 23 mm/hr (0-30)
[2024-02-23 11:02] LABS: ALB/GLOB Ratio 0.9 RATIO (0.9-2.4); AST(SGOT) 19 U/L (15-37); Alanine Aminotransfer ALT/SGPT 24 U/L (13-56); Albumin, Serum 3.7 g/dL (3.2-5.0); Alkaline Phosphatase 55 U/L (45-117); Anion Gap 6 (5-15); BUN 17 mg/dL (7-18); BUN/Creat Ratio 22.2 RATIO (10-20); CRP < 2.90 mg/L (0.0-3.0); Calcium,Total 8.9 mg/dL (8.5-10.1); Chloride 108 mmol/L (98-107); Creatinine, Serum 0.77 mg/dL (0.55-1.02); EST Glomerular Filtration Rate 88 mL/min (>60); Est Glom Filt Rate - Afr Amer 107 mL/min (>60); Globulin 4.3 g/dL (2.2-4.2); Glucose 114 mg/dL (74-106); Potassium 3.6 mmol/L (3.5-5.1); Sodium Level 137 mmol/L (136-145)
[2024-02-23] MEDS: CYCLOPHOSPHAMIDE IV (11:18)
[2024-02-23] MEDS: NORMAL SALINE 0.9% IV (11:18)
[2024-02-23 12:41] VITALS: BP 135/95; PULSE 91; RESP 16; TEMP 36.6; O2SAT 100
[2024-02-24 05:07] LABS: Complement C3 72 mg/dL (82-167)
[2024-02-24 13:08] LABS: Anti-dsDNA Ab 73 IU/mL (0-9)
== END 2024-02-23 09:47 | disposition home or self-care (01) ==
LOC: MEDOUTP 09:46
DX: M32.14 Glomerular disease in systemic lupus erythematosus (principal)
CPT/HCPCS: 96365; 96361; 80053; 81001; 82570; 84156; 85025; 85652; 86140; 86160; 86225; J7040; J7050; A4216; J2405; J3490; J9075

== ENCOUNTER 2024-03-08 09:40 | Outpatient (CLI) | payer OTHER, SELFPAY ==
[2024-03-08 09:59] VITALS: BMI 40.4
[2024-03-08 10:22] VITALS: BP 132/95; PULSE 102; RESP 16; TEMP 36.6; O2SAT 100; BMI 40.4
[2024-03-08] MEDS: 0.9% NaCl Peripheral Flush Adult/Peds IV (10:24)
[2024-03-08 10:32] LABS: Mucous, Urine 0 SEEN /hpf (<or=2+); Red Blood Cells-Urine 0 SEEN /hpf (0-5); White Blood Cells 0 SEEN /hpf (0-5)
[2024-03-08] MEDS: Ondansetron 8 MG in 0.9% Normal Saline (50mL Bag) 50 ML 216 MG IV (10:32)
[2024-03-08] MEDS: 0.9% Normal Saline (500mL Bag) 500 ML IV (10:32)
[2024-03-08 10:42] LABS: Absolute Lymphocyte Count 0.83 X10^3/uL (0.83-4.51); Absolute Neutrophil Count 4.1 X10^3/uL (2.0-7.7); Basophil# 0.01 X10^3/uL; Basophil% 0.2 % (0-1); Eosinophil# 0.01 X10^3/uL; Eosinophils% 0.2 % (0-5); Hematocrit 39.2 % (37-47); Hemoglobin 13.2 g/dL (12.0-15.0); Lymphocyte # 0.83 X10^3/ul (0.83-4.51); Lymphocyte % 15.3 % (19-41); Mean Corp Hgb Conc 33.7 g/dL (32-36); Mean Corpuscular Hgb 30.6 pg (27.0-32.0); Mean Platelet Vol. 10.3 fl (6.2-12.0); Monocyte# 0.42 X10^3/uL; Monocyte% 7.8 % (0-10); NRBC Flagged by Analyzer 0 % (0-5); Neutrophil # 4.12 X10^3/uL (2.7-7.7); Neutrophil % 76.1 % (47-70); Platelet Count 247 K/mm3 (150-450); RBC Distribution Width CV 13.3 % (11.6-14.6); RBC Distribution Width SD 44.2 fl (35.1-43.9); Red Blood Count 4.31 M/mm3 (4.2-5.4); White Blood Count 5.4 K/mm3 (4.4-11.0)
[2024-03-08 10:45] LABS: Protein:Creat Ratio 145 mg/g CRE (0-200)
[2024-03-08 10:45] LABS: Erythrocyte Sedimentation Rate 15 mm/hr (0-30)
[2024-03-08 10:49] LABS: Color, Urine Yellow (Yellow); Glucose, Dipstick Normal (Normal); Ketone-Dipstick 5 mg/dl (Negative); Leukocyte Esterase-Dipstick 25 /ul (Negative); Nitrite-Dipstick Negative (Negative); Occult Blood-Urine Negative /ul (Negative); Protein-Dipstick 30 mg/dl (Negative); Specific Gravity, Urine 1.015 (1.002-1.030); Urine Clarity Clear (Clear); Urine Urobilinogen 1 mg/dl (Normal)
[2024-03-08 10:57] LABS: Urine Bilirubin Dipstick 1 mg/dL (Negative)
[2024-03-08 10:59] LABS: ALB/GLOB Ratio 0.8 RATIO (0.9-2.4); AST(SGOT) 17 U/L (15-37); Alanine Aminotransfer ALT/SGPT 21 U/L (13-56); Albumin, Serum 3.4 g/dL (3.2-5.0); Alkaline Phosphatase 56 U/L (45-117); Anion Gap 7 (5-15); BUN 14 mg/dL (7-18); CRP < 2.90 mg/L (0.0-3.0); Calcium,Total 8.9 mg/dL (8.5-10.1); Chloride 105 mmol/L (98-107); Creatinine, Serum 0.78 mg/dL (0.55-1.02); EST Glomerular Filtration Rate 87 mL/min (>60); Est Glom Filt Rate - Afr Amer 105 mL/min (>60); Estimated Creatinine Clearance 118.49 ml/min; Globulin 4.4 g/dL (2.2-4.2); Glucose 103 mg/dL (74-106); Potassium 3.5 mmol/L (3.5-5.1); Protein, Total 7.8 g/dL (6.4-8.2); Sodium Level 138 mmol/L (136-145)
[2024-03-08 11:03] LABS: Bacteria 1+ /hpf (None Seen); Squamous Epithelial Cells - UA 5-10 SEEN /hpf (5-10)
[2024-03-08] MEDS: CYCLOPHOSPHAMIDE IV (11:28)
[2024-03-08] MEDS: NORMAL SALINE 0.9% IV (11:28)
[2024-03-08 11:43] LABS: Vitamin D,25 Hydroxy 51.9 ng/mL
[2024-03-08 12:45] VITALS: BP 137/92; PULSE 94; RESP 16; TEMP 36.6; O2SAT 99
[2024-03-09 05:07] LABS: Complement C3 77 mg/dL (82-167)
[2024-03-09 14:10] LABS: Anti-dsDNA Ab 59 IU/mL (0-9)
== END 2024-03-08 23:59 | disposition home or self-care (01) ==
LOC: MEDOUTP 09:40
DX: M32.14 Glomerular disease in systemic lupus erythematosus (principal)
CPT/HCPCS: 96365; 80053; 81001; 82306; 82570; 84156; 85025; 85652; 86140; 86160; 86225; A4216; J2405; J9075

== ENCOUNTER 2024-03-23 11:25 | Outpatient (CLI) | payer OTHER, SELFPAY ==
[2024-03-23 12:28] VITALS: BP 115/69; PULSE 96; RESP 16; TEMP 35.9; O2SAT 98; BMI 39.1
[2024-03-23 12:29] LABS: Color, Urine Yellow (Yellow); Glucose, Dipstick Normal (Normal); Ketone-Dipstick Negative (Negative); Leukocyte Esterase-Dipstick 100 /ul (Negative); Mucous, Urine 0 SEEN /hpf (<or=2+); Nitrite-Dipstick Negative (Negative); Occult Blood-Urine 25 /ul (Negative); Protein-Dipstick 30 mg/dl (Negative); Red Blood Cells-Urine 0 SEEN /hpf (0-5); Specific Gravity, Urine 1.015 (1.002-1.030); Urine Bilirubin Dipstick Negative (Negative); Urine Clarity Sl. Cloudy (Clear); Urine Urobilinogen 1 mg/dl (Normal)
[2024-03-23 12:36] LABS: Bacteria 3+ /hpf (None Seen); Squamous Epithelial Cells - UA 5-10 SEEN /hpf (5-10); White Blood Cells 0-5 SEEN /hpf (0-5)
[2024-03-23] MEDS: 0.9% NaCl Peripheral Flush Adult/Peds IV (12:50)
[2024-03-23] MEDS: 0.9% NaCl IVPB Med Flush (250 mL) 15 ML IV (12:50)
[2024-03-23] MEDS: 0.9% Normal Saline (500mL Bag) 500 ML IV (12:51)
[2024-03-23] MEDS: Ondansetron 8 MG in 0.9% Normal Saline (50mL Bag) 50 ML 216 MG IV (12:51)
[2024-03-23 13:02] LABS: Protein, Urine (Random) 45.5 mg/dL (<11.9); Protein:Creat Ratio 268 mg/g CRE (0-200)
[2024-03-23 13:11] LABS: Erythrocyte Sedimentation Rate 19 mm/hr (0-30)
[2024-03-23 13:13] LABS: Absolute Neutrophil Count 2.9 X10^3/uL (2.0-7.7); Basophil# 0.02 X10^3/uL; Basophil% 0.6 % (0-1); Hematocrit 36.7 % (37-47); Hemoglobin 12.6 g/dL (12.0-15.0); Lymphocyte % 11.7 % (19-41); Mean Corp Hgb Conc 34.3 g/dL (32-36); Mean Corpuscular Hgb 30.5 pg (27.0-32.0); Mean Corpuscular Volume 88.9 fL (81-99); Mean Platelet Vol. 11.1 fl (6.2-12.0); Monocyte# 0.14 X10^3/uL; Monocyte% 4.1 % (0-10); NRBC Flagged by Analyzer 0 % (0-5); Neutrophil # 2.85 X10^3/uL (2.7-7.7); Neutrophil % 83.3 % (47-70); POSITIVE DIFFERENTIAL YES; Platelet Count 184 K/mm3 (150-450); RBC Distribution Width CV 12.7 % (11.6-14.6); RBC Distribution Width SD 41.3 fl (35.1-43.9); Red Blood Count 4.13 M/mm3 (4.2-5.4); White Blood Count 3.4 K/mm3 (4.4-11.0)
[2024-03-23] MEDS: NORMAL SALINE 0.9% IV (13:25)
[2024-03-23] MEDS: CYCLOPHOSPHAMIDE IV (13:25)
[2024-03-23 13:27] LABS: Vitamin D,25 Hydroxy 57.1 ng/mL
[2024-03-23 13:33] LABS: ALB/GLOB Ratio 0.9 RATIO (0.9-2.4); AST(SGOT) 27 U/L (15-37); Alanine Aminotransfer ALT/SGPT 26 U/L (13-56); Albumin, Serum 3.6 g/dL (3.2-5.0); Alkaline Phosphatase 56 U/L (45-117); Anion Gap 6 (5-15); BUN 12 mg/dL (7-18); BUN/Creat Ratio 17.8 RATIO (10-20); CRP < 2.90 mg/L (0.0-3.0); Calcium,Total 8.7 mg/dL (8.5-10.1); Chloride 107 mmol/L (98-107); Creatinine, Serum 0.68 mg/dL (0.55-1.02); EST Glomerular Filtration Rate 102 mL/min (>60); Est Glom Filt Rate - Afr Amer 124 mL/min (>60); Globulin 4.2 g/dL (2.2-4.2); Glucose 130 mg/dL (74-106); Potassium 3.7 mmol/L (3.5-5.1); Protein, Total 7.8 g/dL (6.4-8.2); Sodium Level 137 mmol/L (136-145)
[2024-03-25 04:08] LABS: Complement C3 71 mg/dL (82-167)
[2024-03-27 12:08] LABS: Anti-dsDNA Ab 50 IU/mL (0-9)
== END 2024-03-23 23:59 | disposition home or self-care (01) ==
LOC: MEDOUTP 11:25
DX: M32.14 Glomerular disease in systemic lupus erythematosus (principal); Z79.899 Other long term (current) drug therapy; I31.9 Disease of pericardium, unspecified; M21.12 Varus deformity, not elsewhere classified, elbow; E55.9 Vitamin D deficiency, unspecified
CPT/HCPCS: 96365; 96367; 96361; 80053; 81001; 82306; 82570; 84156; 85025; 85652; 86140; 86160; 86225; 96368; J7040; J7050; A4216; J2405; J3490; J9075

== ENCOUNTER 2024-09-12 03:35 | Emergency (ER) | payer OTHER, SELFPAY ==
[2024-09-12 03:38] VITALS: BP 128/92; PULSE 96; RESP 18; TEMP 36.7; O2SAT 100; BMI 39.8
--- NOTE | 2024-09-12 04:00 | EDS_ITS ---
HPI History of Present Illness Chief Complaint: Dental Informant: patient Narrative Narrative: Patient is a 39-year-old female with past medical history of hypertension as well as SLE. She states roughly 6 days ago she had bilateral lower wisdom teeth removed. She states the oral surgeon initiated called in clindamycin but when she went to pick this up was informed by the pharmacy staff that she reports this as an allergy. She states she did not want to take it in case she truly was allergic and contacted her surgeon but no new prophylactic antibiotic was prescribed. She states she has been taking tramadol as she does have an allergy to oxycodone but pain has persisted. She denies any fevers or difficulty breathing or swallowing but with persistent pain and concern for underlying infection she presents for evaluation [facility] Medical History (Updated 09/12/24 @ 04:[address] Andrea Collins, ) Gastric reflux Hypertension CKD (chronic kidney disease) SLE (systemic lupus erythematosus) Irritable colon Cardiomyopathy Bilateral pendulous breasts Diarrhea Recent weight loss Intertrigo Shoulder pain Chronic thoracic back pain Chronic neck pain Macromastia Allergies History of pulmonary embolism Wears glasses Depression Anxiety Alcohol use Rash History of steroid therapy Diabetes Arthritis History of renal disease Pulmonary embolism Back pain Non-smoker History of edema Hx of echocardiogram History of stress test Cardiology follow-up encounter Chest pain Lupus Renal failure Morbid obesity Left pulmonary embolus Essential (primary) hypertension Anemia Thrombocytopenia Fever and neutropenia Neutropenia associated with autoimmune disease Pericardial effusion History of systemic lupus erythematosus Psoriatic arthritis cardiomyopathy Home Medications ?Medication ?Instructions ?Recorded ?Last Taken ?Type apixaban 5 mg tablet 5 mg PO BID #60 tabs 11/10/19 06/06/23 Rx buspirone 5 mg tablet 5 mg PO TID 03/28/21 Unknown History voclosporin 7.9 mg capsule 23.7 mg PO BID 05/25/22 Unknown History (Lupkynis) levonorgestrel 20.4 mcg/24 hr (up 1 device intrauterine ONCE 09/24/22 Unknown Hi story to 8 yrs) 52 mg intrauterine device (Liletta) amlodipine 5 mg tablet (Norvasc) 5 mg PO DAILY 01/18/23 Unknown History mycophenolate mofetil 500 mg 1,500 mg PO BID 01/18/23 Unknown History tablet (CellCept) ergocalciferol (vitamin D2) 1,000 2,000 unit PO QWEEK 01/07/24 Unknown History unit capsule escitalopram oxalate 5 mg tablet 5 mg PO DAILY 09/12/24 Unknown History hydrocodone-acetaminophen 5-325mg 1 tab PO Q6H PRN pain 5 days #20 09/12/24 Unknown Rx 5mg-325mg tabs sulfamethoxazole 800 1 tab PO BID 7 days #14 tabs 09/12/24 Unknown Rx mg-trimethoprim 160 mg tablet (Bactrim DS) Allergy/AdvReac Type Severity Reaction Status Date / Time amoxicillin Allergy Rash Verified 09/12/24 03:35 cephalexin (From Keflex) Allergy Rash Verified 09/12/24 03:35 clindamycin Allergy Rash Verified 09/12/24 03:35 doxycycline Allergy Hives Verified 09/12/24 03:35 Iodinated Contrast Media Allergy Shortness Verified 09/12/24 03:35 (CONTRASTS) of breath morphine Allergy Swelling Verified 09/12/24 03:35 oxycodone Allergy Hives Verified 09/12/24 03:35 Penicillins Allergy Rash Verified 09/12/24 03:35 codeine AdvReac Nausea Verified 09/12/24 03:35 Family History Mother Arthritis Osteoporosis Rheumatoid arthritis Father Arthritis Hypertension Other Thyroid disorder Surgical History (Updated 09/12/24 @ 03:42 by Ирина Harrison) Hx of wisdom tooth extraction Hx of breast reduction, elective History of tubal ligation History of appendectomy History of endometrial ablation (04/02/21) History of biopsy S/P pericardiocentesis (03/06/19) History of appendectomy Hx of cholecystectomy History of Social History Smoking Status: Never smoker alcohol intake: never substance use type: does not use caffeine: Yes Type: coffee Number of servings: 1 additional social history: Does Take Aspirin Does Not Take Ibuprofen ROS ROS ED Constitutional Constitutional ED: Denies chills or fever(s) Eyes Eyes: Denies change in vision ENT ENT ED: Reports other Details: Positive dental/jaw pain Cardiovascular Cardiovascular: Denies chest pain or palpitations Respiratory/Chest Respiratory/Chest: Denies cough or dyspnea Gastrointestinal Gastrointestinal: Denies abdominal pain, diarrhea, nausea or vomiting Genitourinary Genitourinary ED: Denies dysuria Musculoskeletal Musculoskeletal: Denies neck pain Integumentary Denies rash Neurologic Neurologic: Denies headache(s) Hematologic/Lymphatic Hematologic/Lymphatic: Reports easy bleeding and easy bruising Allergic/Immunologic Allergic/Immunologic ED: Denies mouth swelling or tongue swelling EXAM Physical Exam Const Vital Signs: 09/12/24 03:38 Temperature 98.0 F Temperature Source Oral Pulse Rate 96 Respiratory Rate 18 Blood Pressure 128/92 H Blood Pressure Mean 104 Pulse Ox 100 Oxygen Delivery Method Room Air Positive well nourished, well developed and obese General Appearance ED: well developed; Negative for pallor Nutritional Appearance: obese HEENT Reports moist mucous membranes HEENT Narrative: Patient has postsurgical changes in the bilateral mandible consistent with wisdom teeth extraction. There is mild soft tissue swelling at the sites and it is painful to palpation. However there is no obvious dental abscess noted. No tongue or lip swelling no oral lesions no airway edema or compromise Eyes PERRL and EOMs intact bilaterally General Eye ED: Negative for scleral icterus Neck supple Neck Narrative: No brawny edema in the submental space to suggest Markell's angina Resp normal respiratory effort and clear to auscultation bilaterally Cardio regular rate and regular rhythm Extremity normal to inspection Neuro oriented x3, CN's II-XII intact bilaterally and no sensory deficits noted Sensorium / Orientation: alert Motor Exam: strength 5/5 throughout Psych mental status grossly normal Skin no rashes or lesions noted General Skin Exam: Negative for jaundice or pallor MDM MDM MDM Narrative Medical decision making narrative: Patient arrived to the ER with stable vitals. She reported increasing pain since her wisdom teeth extraction. There is concern for postoperative infection such as dental abscess or gingivitis versus Markell's angina or ANUG. By exam she does not have any swelling in the submental space to suggest Markell's angina and she has no signs of ANUG. The patient does not have any obvious soft tissue fluid collection to suggest abscess and in the exam also does not reveal any obvious acute infection as there is no swelling to the submandibular gland or significant lymphadenopathy. She is tolerating her secretions well she is talking without respiratory distress or muffled or change in voice and I do not feel there is need for CT scan or lab work as vitals are stable and her exam does not suggest airway narrowing or compromise. As the patient does have a history of immunosuppression from her lupus should be placed on prophylactic antibiotics. We discussed potential dental block for pain control but she does not want an injection at this time. Based on her postoperative pain she will prescribe Wilton as she states she can take this. However without signs of airway compromise or systemic infection there is no need for further evaluation and she is otherwise safe for discharge. History & Record Review Discussion w/independent historian: Patient Discharge Plan Triage Chief Complaint: Dental ED Provider: Andrea Collins Dx/Rx/DC Orders Clinical Impression: Postoperative pain, Systemic lupus erythematosus, Essential (primary) hypertension Instructions: ED Dental Pain Prescriptions: New sulfamethoxazole-trimethoprim [Bactrim DS] 800-160 mg tablet 1 tab PO BID 7 Days Qty: 14 0RF hydrocodone-acetaminophen 5-325 mg tablet 1 tab PO Q6H PRN (Reason: pain) 5 Days Qty: 20 0RF No Action Lupkynis 7.9 mg capsule 23.7 mg PO BID Liletta 20.4 mcg/24 hrs (8 yrs) 52 mg intrauterine device 1 device intrauterine ONCE Rx Instructions: as a single dose amlodipine [Norvasc] 5 mg tablet 5 mg PO DAILY mycophenolate mofetil [CellCept] 500 mg tablet 1,500 mg PO BID apixaban 5 MG tablet 5 mg PO BID Qty: 60 0RF Rx Instructions: For the first 7 days you will take 10 mg which is 2 of your 5 mg pills once a day. After the first 7 days on day 8 he will begin taking only 1 pill or 5 mg twice a day and will stay on that until your primary care physician takes you off of the medication. You will need refills of this prescription. buspirone 5 mg Tablet 5 mg PO TID ergocalciferol (vitamin D2) 1,000 unit capsule 2,000 unit PO QWEEK escitalopram oxalate 5 mg tablet 5 mg PO DAILY Primary Care Provider: Susanne Sanders Referrals: Susanne Sanders, [Primary Care Provider] - Activity Restrictions/Additional Instructions: Please follow-up with your oral surgeon as directed. Your exam does not show any obvious signs of developing infection but because you are immunosuppressed from lupus take the Bactrim as directed to help prevent any infection. Stop the Ultram that was given to you by the oral surgeon as it is not controlling your pain and begin to use the Wilton as directed for pain control. Return to the ER should you have any further concerns Print Language: Japanese Disposition Disposition: Home, Self Care Discharge Date/Time: 09/12/24 04:15
[2024-09-12 04:11] VITALS: BP 123/91; PULSE 88; RESP 16; TEMP 36.7; O2SAT 100
[2024-09-12] MEDS: Smz/Tmp Ds Tablet 1 TABLET PO (04:12)
[2024-09-12] MEDS: HYDROcodone Bitartrate/Apap 5/325 Tablet PO (04:12)
== END 2024-09-12 04:15 | disposition home or self-care (01) ==
PROVIDERS: Emergency Provider Emergency Medicine; Visit Provider Emergency Medicine
DX: K08.89 Other specified disorders of teeth and supporting structures (principal); M32.9 Systemic lupus erythematosus, unspecified; E11.22 Type 2 diabetes mellitus with diabetic chronic kidney disease; G89.18 Other acute postprocedural pain; Z98.818 Other dental procedure status; F32.A Depression, unspecified; F41.9 Anxiety disorder, unspecified; E66.9 Obesity, unspecified; I12.9 Hypertensive chronic kidney disease with stage 1 through stage 4 chronic kidney disease, or unspecified chronic kidney disease; N18.9 Chronic kidney disease, unspecified; Z88.1 Allergy status to other antibiotic agents; Z88.0 Allergy status to penicillin; Z90.49 Acquired absence of other specified parts of digestive tract; Z79.01 Long term (current) use of anticoagulants; Z86.711 Personal history of pulmonary embolism; Z79.899 Other long term (current) drug therapy
CPT/HCPCS: 99283

== ENCOUNTER 2024-12-04 12:02 | Emergency (ER) | payer OTHER, SELFPAY ==
[2024-12-04 12:03] VITALS: BP 159/115; PULSE 98; RESP 18; TEMP 37.3; O2SAT 98; BMI 40.0
--- NOTE | 2024-12-04 12:06 | RAD_ITS ---
EXAM: CHEST 1 VIEW (PORTABLE) CLINICAL HISTORY: One-week history of pleurisy. COMPARISON: Comparison is made with prior study dated November 03, 2021. TECHNIQUE: Portable chest radiograph. FINDINGS: The heart is not enlarged. The lungs are clear. RAD/Chest 1 View (Portable) IMPRESSION: Unremarkable portable radiograph. Reading Location: [id number]
[2024-12-04 12:38] LABS: International Normalized Ratio 0.9; Prothrombin Time (Protime)PT. 12.2 SECONDS (11.7-14.9)
[2024-12-04 12:39] LABS: Absolute Lymphocyte Count 0.78 X10^3/uL (0.83-4.51); Absolute Neutrophil Count 2.5 X10^3/uL (2.0-7.7); Basophil# 0.01 X10^3/uL; Basophil% 0.3 % (0-1); Eosinophil# 0.04 X10^3/uL; Hematocrit 40.6 % (37-47); Hemoglobin 13.9 g/dL (12.0-15.0); Lymphocyte # 0.78 X10^3/ul (0.83-4.51); Lymphocyte % 20.4 % (19-41); Mean Corp Hgb Conc 34.2 g/dL (32-36); Mean Corpuscular Hgb 29.6 pg (27.0-32.0); Mean Corpuscular Volume 86.4 fL (81-99); Mean Platelet Vol. 10.6 fl (6.2-12.0); Monocyte# 0.44 X10^3/uL; Monocyte% 11.5 % (0-10); NRBC Flagged by Analyzer 0 % (0-5); Neutrophil # 2.53 X10^3/uL (2.7-7.7); Neutrophil % 66.3 % (47-70); Platelet Count 197 K/mm3 (150-450); RBC Distribution Width CV 11.8 % (11.6-14.6); White Blood Count 3.8 K/mm3 (4.4-11.0)
[2024-12-04 12:57] LABS: Anion Gap 8 (5-15); BUN 13 mg/dL (7-18); BUN/Creat Ratio 20.8 RATIO (10-20); Calcium,Total 9.3 mg/dL (8.5-10.1); Chloride 104 mmol/L (98-107); Creatinine, Serum 0.62 mg/dL (0.55-1.02); EST Glomerular Filtration Rate 111 mL/min (>60); Est Glom Filt Rate - Afr Amer 135 mL/min (>60); Estimated Creatinine Clearance 146.76 ml/min; Glucose 96 mg/dL (74-106); Potassium 3.1 mmol/L (3.5-5.1); Sodium Level 139 mmol/L (136-145); Troponin-I HS (w/2H Reflex) 8 pg/mL (3.0-54.0)
--- NOTE | 2024-12-04 13:40 | EDS_ITS ---
<Statement entered by Tommie Forbes DO - 12/11/24 15:13> Patient was seen and examined with physician assistant professor of education Eliza All components of the history and physical confirmed and agreed. History of present illness and physical exam: Patient is a 39-year-old female with a past medical history of lupus, pericardial effusion, PE on Eliquis, pleurisy who presents to the emergency department chief complaint chest pain that has been going on for the past week. She states that the pain is constant that seems to be worse when she tries to lie down. Patient states that this does not get worse with exertion. Patient states that she has not had recent surgeries or travels or immobilization states that she has not missed any doses of her Eliquis. She states that she has been taking her colchicine which started a week ago with minimal relief of her pain and states that she does follow with cardiology in outpatient setting. Review of systems: Agree with above Physical exam: Agree with above MDM Patient is a 39-year-old female who presented to the emerged from chief complaint chest pain has been constant for the past week. On the differential diagnose includes but not limited to upper respiratory effect secondary viral etiology, ACS, pneumonia, pericardial effusion, PE although feel this less likely as she is chronically anticoagulated on Eliquis. Once workup is obtained reviewed she will be reevaluated. Patient CBC reviewed showed a white blood count of 3.8, hemoglobin 13.9, platelet count normal at 197. Patient sodium was normal at 139, potassium was 3.1, creatinine normal at 0.62. Patient's troponin was noted to be 8 with a delta troponin noted to be normal at 8 as well. Patient's EKG reviewed and independently turbid of myself showed sinus rhythm with a rate of 87 bpm. Patient chest x-ray reviewed by myself and by radiology showed no acute cardiopulmonary processes. Did bedside echocardiogram and no pericardial effusion was noted with a largely normal ejection fraction. Eliza spoke with on-call brick molder hand Dr. Rowland patient who states that she can follow-up in outpatient setting. She states that she has been taking 20 mg prednisone in the last week on her own to see if this would help with her pain. We increased the dose and placed her on taper. She was encouraged to return if worsening symptoms or other concerns otherwise she is follow-up with primary care physician or brick molder hand outpatient setting. She is agreeable this plan all course concerns answered she is discharged home in stable condition. Final impression: Chest pain Disposition: Patient will be discharged home in stable condition Supervising attending attestation: Tommie BROWER History of Present Illness Chief Complaint: Chest Pain Narrative Narrative: Patient presenting today due to concerns for pain across her chest that she has had over the past week. Reports that the pain is constant. Laying flat seems to make the pain worse. Pain does not seem to be exertional. She denies feeling short of breath but reports that taking a deep breath does seem to make the pain worse. She does admit history of lupus, previous pericardial effusion, previous PE on Eliquis, and pleurisy. She denies any recent surgery/travel/immo bilization. She is compliant with her Eliquis. She reports that she began taking her colchicine a week ago with minimal relief of her pain. She does follow with cardiology. She denies fevers, chills, flulike symptoms, cough, abdominal pain. [facility] Medical History Gastric reflux Hypertension CKD (chronic kidney disease) SLE (systemic lupus erythematosus) Irritable colon Cardiomyopathy Bilateral pendulous breasts Diarrhea Recent weight loss Intertrigo Shoulder pain Chronic thoracic back pain Chronic neck pain Macromastia Allergies History of pulmonary embolism Wears glasses Depression Anxiety Alcohol use Rash History of steroid therapy Diabetes Arthritis History of renal disease Pulmonary embolism Back pain Non-smoker History of edema Hx of echocardiogram History of stress test Cardiology follow-up encounter Chest pain Lupus Renal failure Morbid obesity Left pulmonary embolus Essential (primary) hypertension Anemia Thrombocytopenia Fever and neutropenia Neutropenia associated with autoimmune disease Pericardial effusion History of systemic lupus erythematosus Psoriatic arthritis cardiomyopathy Home Medications ?Medication ?Instructions ?Recorded ?Last Taken ?Type apixaban 5 mg tablet 5 mg PO BID #60 tabs 2 0 06/06/23 Rx buspirone 5 mg tablet 5 mg PO TID 03/28/21 Unknown History voclosporin 7.9 mg capsule 23.7 mg PO BID 05/25/22 Unk nown History (Lupkynis) levonorgestrel 20.4 mcg/24 hr (up 1 device intrauterin e ONCE 09/24/22 Unknown History to 8 yrs) 52 mg intrauterine device (Liletta) amlodipine 5 mg tablet (Norvasc) 5 mg PO DAILY 04/03/2 3 Unknown History mycophenolate mofetil 500 mg 1,500 mg PO BID 01/18/23 Unknown History tablet (CellCept) ergocalciferol (vitamin D2) 1,000 2,000 unit PO QWEEK 01/07/24 Unknown History unit capsule escitalopram oxalate 5 mg tablet 5 mg PO DAILY 4 Unknown History hydrocodone-acetaminophen 5-325mg 1 tab PO Q6H PRN joann n 5 days #20 09/12/24 Unknown Rx 5mg-325mg tabs sulfamethoxazole 800 1 tab PO BID 7 days #14 tabs 09/12/24 Unknown Rx mg-trimethoprim 160 mg tablet (Bactrim DS) prednisone 10 mg tablet 10 mg PO UD #33 tabs 5 Unknown Rx Allergy/AdvReac Type Severity Reaction Status Date / Time amoxicillin Allergy Rash Verified 12/04/24 12:03 cephalexin (From Keflex) Allergy Rash Verified 12/04/24 12:03 clindamycin Allergy Rash Verified 12/04/24 12:03 doxycycline Allergy Hives Verified 12/04/24 12:03 Iodinated Contrast Media Allergy Shortness Verified 12/04/24 12:03 (CONTRASTS) of breath morphine Allergy Swelling Verified 12/04/24 12:03 oxycodone Allergy Hives Verified 12/04/24 12:03 Penicillins Allergy Rash Verified 12/04/24 12:03 codeine AdvReac Nausea Verified 12/04/24 12:03 Family History Mother Arthritis Osteoporosis Rheumatoid arthritis Father Arthritis Hypertension Other Thyroid disorder Surgical History Hx of wisdom tooth extraction Hx of breast reduction, elective History of tubal ligation History of appendectomy History of endometrial ablation (04/02/21) History of biopsy S/P pericardiocentesis (03/06/19) History of appendectomy Hx of cholecystectomy History of Social History Smoking Status: Never smoker alcohol intake: never substance use type: does not use caffeine: Yes Type: coffee Number of servings: 1 additional social history: Does Take Aspirin Does Not Take Ibuprofen ROS ROS ED Constitutional Constitutional ED: Denies chills or fever(s) Cardiovascular Cardiovascular: Reports chest pain; Denies palpitations Respiratory/Chest Respiratory/Chest: Denies cough or dyspnea Gastrointestinal Gastrointestinal: Denies abdominal pain, nausea or vomiting Musculoskeletal Musculoskeletal: Denies arthralgias or myalgias Integumentary Denies rash Neurologic Neurologic: Denies weakness EXAM Physical Exam Const Vital Signs: 12/04/24 12:03 12/04/24 13:22 12/04/24 13:56 Temperature 99.1 F Temperature Source Oral Pulse Rate 98 90 Respiratory Rate 18 29 H Blood Pressure 159/115 H 138/102 H Blood Pressure Mean 129 114 Pulse Ox 98 99 Oxygen Delivery Method Room Air Room Air Room Air 12/04/24 15:37 12/04/24 15:52 Temperature 97.4 F L Temperature Source Pulse Rate 90 87 Respiratory Rate 18 16 Blood Pressure 130/92 H 128/91 H Blood Pressure Mean 104 103 Pulse Ox 99 99 Oxygen Delivery Method Room Air Positive well nourished, well developed and no apparent distress General Appearance ED: well developed HEENT Reports normocephalic and head/scalp atraumatic Mouth ED: Yes moist mucous membranes normal Eyes PERRL and EOMs intact bilaterally Neck full ROM and supple Chest Wall inspection of chest normal Chest Narrative: Pain to palpation diffusely across patient's left and right chest wall as well as to her sternum. No rash to the area. Resp normal respiratory effort and clear to auscultation bilaterally Cardio regular rate and regular rhythm GI soft to palpation, non-tender, non-distended and no masses Back/Spine normal ROM and normal to inspection Extremity normal to inspection and full ROM Neuro oriented x3, CN's II-XII intact bilaterally, moves all extremities, no focal motor deficits and no sensory deficits noted Sensorium / Orientation: awake and alert Psych mental status grossly normal and thought process normal Skin no rashes or lesions noted and no wounds MDM MDM MDM Narrative Medical decision making narrative: Patient presenting today due to concerns for chest pain across her chest that she has had over the past week continuously. She has a history of pleurisy, pericardial effusion, and PE on Eliquis. Low suspicion for PE given she is compliant with her Eliquis. Triage note reported shortness of breath, however patient denies feeling short of breath. She is otherwise well-appearing and in no acute distress. Her vitals are unremarkable. Cardiac labs were obtained, her CBC is unremarkable, potassium slightly low at 3.1, patient given potassium replacement, she has a nonsignificant delta troponin. Bedside ultrasound was performed by the attending ED physician, no significant pericardial effusion noted. Chest x-ray negative for any cardiopulmonary abnormality. She does have reproducible chest wall pain to palpation, given her negative troponins low suspicion that this is cardiac in nature. I did speak with Dr. Rowland who is on- call for Dr. Aranda who she sees, he is comfortable with this plan and recommends she follow-up as an outpatient. She has been taking 20 mg prednisone over the past week on her own to see if it would help with her pain, I will put her on a higher dose with a taper. She can also take Tylenol for pain as needed. I recommended she follow-up closely with her PCP and cardiology. Return in structions discussed and patient discharged home in stable condition. Lab Data Attestation: I reviewed the patient's lab results. Labs: Laboratory Results - last 24 hr 12/04/24 12/04/24 12:25 14:35 WBC 3.8 L RBC 4.70 Hgb 13.9 Hct 40.6 MCV 86.4 MCH 29.6 MCHC 34.2 RDW Std Deviation 37.0 RDW Coeff of Dennis 11.8 Plt Count 197 MPV 10.6 Immature Gran % (Auto) 0.500 Neut % (Auto) 66.3 Lymph % (Auto) 20.4 Sumner % (Auto) 11.5 H Eos % (Auto) 1.0 Baso % (Auto) 0.3 Absolute Neuts (auto) 2.5 Absolute Lymphs (auto) 0.78 L Nucleated RBC % 0 PT 12.2 INR 0.9 Sodium 139 Potassium 3.1 L Chloride 104 Carbon Dioxide 27.0 Anion Gap 8 BUN 13 Creatinine 0.62 Estim Creat Clear Calc 146.76 Est GFR (MDRD) Af Amer 135 Est GFR (MDRD) Non-Af 111 BUN/Creatinine Ratio 20.8 H Glucose 96 Calcium 9.3 Troponin I High Sens 8 8 Radiography X-Ray: Read by ED Physician Diagnostic Testing: Clinical Impression(s) from Imaging Studies Chest X-Ray 12/04/24 12:06 IMPRESSION: Unremarkable portable radiograph. Reading Location: [facility] EKG Initial EKG: Comments: 87 bpm, normal sinus rhythm, no ST elevation, interpreted by attending ED physician Discharge Plan Triage Chief Complaint: Chest Pain ED Midlevel Provider: Jesika Jimenez ED Provider: Tommie Forbes Dx/Rx/DC Orders Clinical Impression: Atypical chest pain, History of lupus Instructions: ED Chest Pain, Noncardiac Prescriptions: New prednisone 10 mg tablet
[2024-12-04 13:56] VITALS: BP 138/102; PULSE 90; RESP 29; O2SAT 99
[2024-12-04 14:28] LABS: Reflex Troponin-HS? (from REC) Y
[2024-12-04] MEDS: Ketorolac 15 MG/ML Vial IV (15:05)
[2024-12-04 15:14] LABS: Troponin-I HS 8 pg/mL (3.0-54.0)
[2024-12-04] MEDS: Potassium Chloride Oral Tablet 20 MEQ 40 MEQ PO (15:19)
[2024-12-04 15:37] VITALS: BP 130/92; PULSE 90; RESP 18; O2SAT 99
[2024-12-04 15:52] VITALS: BP 128/91; PULSE 87; RESP 16; TEMP 36.3; O2SAT 99
== END 2024-12-04 15:53 | disposition home or self-care (01) ==
PROVIDERS: Emergency Provider Emergency Medicine; Referring Provider Emergency Medicine; Visit Provider Emergency Medicine
DX: R07.89 Other chest pain (principal); L40.50 Arthropathic psoriasis, unspecified; M32.9 Systemic lupus erythematosus, unspecified; E66.01 Morbid (severe) obesity due to excess calories; E11.22 Type 2 diabetes mellitus with diabetic chronic kidney disease; E87.6 Hypokalemia; N18.9 Chronic kidney disease, unspecified; I12.9 Hypertensive chronic kidney disease with stage 1 through stage 4 chronic kidney disease, or unspecified chronic kidney disease; F32.A Depression, unspecified; F41.9 Anxiety disorder, unspecified; Z88.1 Allergy status to other antibiotic agents; Z88.0 Allergy status to penicillin; Z79.01 Long term (current) use of anticoagulants; Z86.711 Personal history of pulmonary embolism; Z79.899 Other long term (current) drug therapy
CPT/HCPCS: 71045; 80048; 84484; 85025; 85610; 93005; 96374; 99283; A4216

== ENCOUNTER 2025-06-29 08:58 | Emergency (ER) | payer OTHER, SELFPAY ==
[2025-06-29 08:58] VITALS: BP 168/107; PULSE 83; RESP 14; TEMP 36.6; O2SAT 98; BMI 39.2
--- NOTE | 2025-06-29 09:05 | EKG12_ITS ---
Test Reason : CP Blood Pressure : */* mmHG Vent. Rate : 70 BPM Atrial Rate : 70 BPM P-R Int : 134 ms QRS Dur : 90 ms QT Int : 402 ms P-R-T Axes : -2 16 22 degrees QTcB Int : 434 ms Normal sinus rhythm Normal ECG Confirmed by Mauricio Ohara ([id number]), scientific publications editor MATEUS SANCHEZ ([id number]) on 07/02/2025 1:07:13 PM Referred By: ERIN Confirmed By: Mauricio Ohara
--- NOTE | 2025-06-29 09:06 | ED.VIS.CHEST ---
HPI History of Present Illness Chief Complaint: Chest Pain Informant: patient Narrative Narrative: 40-year-old female presenting with right-sided chest pain has been present for several days and not going away. Only pleuritic if she takes a deep breath, but she has a history of a PE and states that because of some things going on she has not been taking her Eliquis regularly and missing it a lot. States her last dose was last night. She has also had a cough for the past 2 weeks or so. She denies any fevers, chills. She denies dyspnea unless she has coughing fits, at which point sometimes it is difficult to catch her breath. She denies any pain or swelling in her legs recently. No syncope, nausea, vomiting, diaphoresis. [facility] Medical History Gastric reflux Hypertension CKD (chronic kidney disease) SLE (systemic lupus erythematosus) Irritable colon Cardiomyopathy Bilateral pendulous breasts Diarrhea Recent weight loss Intertrigo Shoulder pain Chronic thoracic back pain Chronic neck pain Macromastia Allergies History of pulmonary embolism Wears glasses Depression Anxiety Alcohol use Rash History of steroid therapy Diabetes Arthritis History of renal disease Pulmonary embolism Back pain Non-smoker History of edema Hx of echocardiogram History of stress test Cardiology follow-up encounter Chest pain Lupus Renal failure Morbid obesity Left pulmonary embolus Essential (primary) hypertension Anemia Thrombocytopenia Fever and neutropenia Neutropenia associated with autoimmune disease Pericardial effusion History of systemic lupus erythematosus Psoriatic arthritis cardiomyopathy Home Medications ?Medication ?Instructions ?Recorded ?Last Taken ?Type apixaban 5 mg tablet 5 mg PO BID #60 tabs 11/10/19 06/06/23 Rx buspirone 5 mg tablet 5 mg PO TID 03/28/21 Unknown History voclosporin 7.9 mg capsule 23.7 mg PO BID 05/25/22 Unknown History (Lupkynis) levonorgestrel 20.4 mcg/24 hr (up 1 device intrauterine ONCE 09/24/22 Unknown History to 8 yrs) 52 mg intrauterine device (Liletta) amlodipine 5 mg tablet (Norvasc) 5 mg PO DAILY 01/18/23 Unknown History mycophenolate mofetil 500 mg 1,500 mg PO BID 01/18/23 Unknown History tablet (CellCept) ergocalciferol (vitamin D2) 1,000 2,000 unit PO QWEEK 01/07/24 Unknown History unit capsule escitalopram oxalate 5 mg tablet 5 mg PO DAILY 09/12/24 Unknown History hydrocodone-acetaminophen 5-325mg 1 tab PO Q6H PRN pain 5 days #20 09/12/24 Unknown Rx 5mg-325mg tabs sulfamethoxazole 800 1 tab PO BID 7 days #14 tabs 09/12/24 Unknown Rx mg-trimethoprim 160 mg tablet (Bactrim DS) prednisone 10 mg tablet 10 mg PO UD #33 tabs 12/04/24 Unknown Rx Allergy/AdvReac Type Severity Reaction Status Date / Time amoxicillin Allergy Rash Verified 06/29/25 08:58 cephalexin (From Keflex) Allergy Rash Verified 06/29/25 08:58 clindamycin Allergy Rash Verified 06/29/25 08:58 doxycycline Allergy Hives Verified 06/29/25 08:58 Iodinated Contrast Media Allergy Shortness Verified 06/29/25 08:58 (CONTRASTS) of breath morphine Allergy Swelling Verified 06/29/25 08:58 oxycodone Allergy Hives Verified 06/29/25 08:58 Penicillins Allergy Rash Verified 06/29/25 08:58 codeine AdvReac Nausea Verified 06/29/25 08:58 Family History Mother Arthritis Osteoporosis Rheumatoid arthritis Father Arthritis Hypertension Other Thyroid disorder Surgical History Hx of wisdom tooth extraction Hx of breast reduction, elective History of tubal ligation History of appendectomy History of endometrial ablation (04/02/21) History of biopsy S/P pericardiocentesis (03/06/19) History of appendectomy Hx of cholecystectomy History of Social History Smoking Status: Never smoker alcohol intake: never substance use type: does not use caffeine: Yes Type: coffee Number of servings: 1 additional social history: Does Take Aspirin Does Not Take Ibuprofen ROS ROS ED Constitutional Constitutional ED: Denies chills or fever(s) Eyes Eyes: Denies change in vision or diplopia ENT ENT ED: Denies rhinorrhea or sore throat Cardiovascular Cardiovascular: Reports as per HPI and chest pain; Denies palpitations, pedal edema or radiating jaw, neck or arm pain Respiratory/Chest Respiratory/Chest: Reports cough; Denies dyspnea on exertion Gastrointestinal Gastrointestinal: Denies abdominal pain, diarrhea, nausea or vomiting Genitourinary Genitourinary ED: Denies dysuria or hematuria Musculoskeletal Musculoskeletal: Denies back pain or neck pain Integumentary Denies abscess or rash Neurologic Neurologic: Denies headache(s), paresthesias or weakness Psychiatric Psychiatric: Reports anxiety; Denies suicidal thoughts EXAM Physical Exam Const Vital Signs: 06/29/25 08:58 06/29/25 08:58 06/29/25 09:12 Temperature 98 F Temperature Source Temporal Pulse Rate 83 Respiratory Rate 14 Respiratory Effort Normal Blood Pressure 168/107 H Blood Pressure Mean 127 Pulse Ox 98 Oxygen Delivery Method Room Air Room Air Positive well nourished, well developed and obese General Appearance ED: well developed and NAD Nutritional Appearance: obese HEENT Reports moist mucous membranes normocephalic and atraumatic Eyes PERRL and EOMs intact bilaterally Neck full ROM and supple Resp normal respiratory effort and clear to auscultation bilaterally Cardio regular rate, regular rhythm and no murmurs Rate: Negative for tachycardic Peripheral Pulses: pulses 2+ throughout GI non-tender and non-distended Auscultation: normoactive bowel sounds Palpation: soft Back/Spine no CVA tenderness General Back: other FROM Extremity normal to inspection General Extremety ED: Negative for edema, pulses abnormal or tenderness General Extremity: Negative for edema or pulses abnormal Neuro oriented x3, CN's II-XII intact bilaterally and no sensory deficits noted Sensorium / Orientation: awake and alert Motor Exam: strength 5/5 throughout Psych Psych Narrative: a little anxious Skin no rashes or lesions noted and no wounds Heart Score History: Slightly/Non-Suspicious ECG: Normal Age: </= 45 years Risk Factors: 1 or 2 Risk Factors Score: 1 MDM MDM MDM Narrative Medical decision making narrative: Differential here includes pneumonia given her cough, pleurisy, which she has had before, as well as PE since she has been having trouble with compliance with her apixaban, which she has also had before. Also differential includes cardiac etiologies although this would certainly be atypical for that, and musculoskeletal causes given that she has been coughing for 2 weeks. The two-view chest x-ray my interpretation is normal, radiology in agreement, her D-dimer is negative ruling out acute PE and the rest of her blood tests are normal with the exception of her troponin which is 16, this is just barely out of range, but her EKG is normal and she is been having this discomfort for days so I really do not think this is cardiac and we need to continue to trend that. She is reassured, she is given a dose of Tylenol for pain since NSAIDs are contraindicated while on a apixaban and I do not think there is any reason to put her on narcotics. She is comfortable with that plan. Lab Data Attestation: I reviewed the patient's lab results. Labs: Laboratory Results - last 24 hr 06/29/25 09:29 WBC 3.6 L RBC 4.22 Hgb 12.8 Hct 37.7 MCV 89.3 MCH 30.3 MCHC 34.0 RDW Std Deviation 40.0 RDW Coeff of Dennis 12.4 Plt Count 144 L MPV 11.3 Immature Gran % (Auto) 0.300 Neut % (Auto) 62.2 Lymph % (Auto) 21.3 [place] % (Auto) 13.4 H Eos % (Auto) 2.0 Baso % (Auto) 0.8 Absolute Neuts (auto) 2.2 Absolute Lymphs (auto) 0.76 L Nucleated RBC % 0 D-Dimer Quant (PE/DVT) < 0.27 L Sodium 139 Potassium 3.6 Chloride 106 Carbon Dioxide 23.1 Anion Gap 10 BUN 15 Creatinine 0.52 L Estim Creat Clear Calc 171.32 Est GFR (MDRD) Non-Af 119 BUN/Creatinine Ratio 28.3 H Glucose 104 H Calcium 8.5 Troponin T High Sens 16 H Radiography Diagnostic Testing: Clinical Impression(s) from Imaging Studies Chest X-Ray 06/29/25 09:40 IMPRESSION: No acute abnormality Reading Location: [id number] Rhythm Strip Rhythm Strip: Sinus Rhythm Rate: 70 Ectopy: None EKG Initial EKG: Attestation: I personally reviewed and interpreted this EKG as follows: Interpretation: Sinus Rhythm and No Acute Injury Pattern Comments: Nml axis & intervals; nml EKG Discharge Plan Triage Chief Complaint: Chest Pain ED Provider: Terry Read Dx/Rx/DC Orders Clinical Impression: Right-sided chest pain, Anticoagulated on apixaban, Acute viral bronchitis Instructions: ED Pleurisy Prescriptions: No Action Lupkynis 7.9 mg capsule 23.7 mg PO BID Liletta 20.4 mcg/24 hrs (8 yrs) 52 mg intrauterine device 1 device intrauterine ONCE Rx Instructions: as a single dose amlodipine [Norvasc] 5 mg tablet 5 mg PO DAILY mycophenolate mofetil [CellCept] 500 mg tablet 1,500 mg PO BID apixaban 5 MG tablet 5 mg PO BID Qty: 60 0RF Rx Instructions: For the first 7 days you will take 10 mg which is 2 of your 5 mg pills once a day. After the first 7 days on day 8 he will begin taking only 1 pill or 5 mg twice a day and will stay on that until your primary care physician takes you off of the medication. You will need refills of this prescription. buspirone 5 mg Tablet 5 mg PO TID prednisone 10 mg tablet 10 mg PO UD Qty: 33 0RF Rx Instructions: Take 4 tablets daily for 3 days, then 3 daily for 3 days, then 2 daily for 3 days, then 1 a day for 3 days then 1 QOD for 3 doses. ergocalciferol (vitamin D2) 1,000 unit capsule 2,000 unit PO QWEEK escitalopram oxalate 5 mg tablet 5 mg PO DAILY sulfamethoxazole-trimethoprim [Bactrim DS] 800-160 mg tablet 1 tab PO BID 7 Days Qty: 14 0RF hydrocodone-acetaminophen 5-325 mg tablet 1 tab PO Q6H PRN (Reason: pain) 5 Days Qty: 20 0RF Primary Care Provider: Susanne Sanders Referrals: Susanne Sanders, [Primary Care Provider] - 1 Week if not improving Print Language: Greek Disposition Disposition: Home, Self Care
--- NOTE | 2025-06-29 09:40 | RAD_ITS ---
PROCEDURE: CHEST PA AND LATERAL 06/29/2025 REASON FOR EXAM: R CHEST PAIN, COUGH TECHNIQUE: Procedure Code: RADCXR Modality: DX Procedure: CHEST PA AND LATERAL COMPARISON: December 04, 2024 FINDINGS: Hardware: EKG leads Heart: Normal Mediastinum: Normal Lungs: Clear. No pleural effusion or pneumothorax. Bones: Mild curvature lumbar spine to the left. RAD/Chest PA and Lateral IMPRESSION: No acute abnormality Reading Location: [id number]
[2025-06-29 09:42] LABS: Hematocrit 37.7 % (37-47); Hemoglobin 12.8 g/dL (12.0-15.0); Immature Granulocytes Count 0.010 X10^3/uL (0.0-0.0); Mean Corp Hgb Conc 34.0 g/dL (32-36); Mean Corpuscular Volume 89.3 fL (81-99); Mean Platelet Vol. 11.3 fl (6.2-12.0); NRBC Flagged by Analyzer 0 % (0-5); Platelet Count 144 K/mm3 (150-450); RBC Distribution Width CV 12.4 % (11.6-14.6); RBC Distribution Width SD 40.0 fl (35.1-43.9); Red Blood Count 4.22 M/mm3 (4.2-5.4); White Blood Count 3.6 K/mm3 (4.4-11.0)
[2025-06-29 09:51] LABS: D-Dimer Quantitative (DVT/PE) < 0.27 FEU/ug/m (0.27-0.49)
[2025-06-29 10:39] LABS: Anion Gap 10 (5-15); BUN 15 mg/dL (4-19); BUN/Creat Ratio 28.3 RATIO (10-20); Calcium,Total 8.5 mg/dL (7.6-11.0); Carbon Dioxide 23.1 mmol/L (21.0-32.0); Chloride 106 mmol/L (98-108); Estimated Creatinine Clearance 171.32 ml/min (50-250); Glucose 104 mg/dL (70-99); Potassium 3.6 mmol/L (3.3-5.1); Troponin T High Sensitivity 16 ng/L (<=14)
[2025-06-29 10:50] VITALS: BP 150/79; PULSE 78; RESP 14; TEMP 36.6; O2SAT 98
== END 2025-06-29 10:51 | disposition home or self-care (01) ==
PROVIDERS: Emergency Provider Emergency Medicine; Visit Provider Emergency Medicine
DX: J20.9 Acute bronchitis, unspecified (principal); L40.50 Arthropathic psoriasis, unspecified; M32.9 Systemic lupus erythematosus, unspecified; R07.89 Other chest pain; Z91.148 Patient's other noncompliance with medication regimen for other reason; I12.9 Hypertensive chronic kidney disease with stage 1 through stage 4 chronic kidney disease, or unspecified chronic kidney disease; N18.9 Chronic kidney disease, unspecified; E66.9 Obesity, unspecified; F41.9 Anxiety disorder, unspecified; F32.A Depression, unspecified; Z90.49 Acquired absence of other specified parts of digestive tract; Z79.01 Long term (current) use of anticoagulants; Z86.711 Personal history of pulmonary embolism; Z79.899 Other long term (current) drug therapy
CPT/HCPCS: 71046; 80048; 84484; 85025; 85379; 93005; 99284; A4216